=== PATIENT | female | born 1965 | race Caucasian/White ===

== ENCOUNTER 2022-02-25 21:30 | Emergency (ER) | payer OTHER, SELFPAY ==
[2022-02-25] VITALS (13 sets, daily range): BP systolic 110–155; BP diastolic 53–83; PULSE 100–122; RESP 18–34; TEMP 37.3; O2SAT 93–100
--- NOTE | ~2022-02-25 | CT_ITS ---
EXAMINATION: CT ankle RT wo con DATE: 02/26/2022 01:21 INDICATION: Cellulitis. Assess for osteomyelitis. TECHNIQUE: 1. High resolution computed tomography (CT) of the right ankle was performed without intravenous cont rast. Additional sagittal and coronal reconstructions were performed. Automated exposure control and iterative reconstruction technique were employed. The dose-length product was 335.49 mGy-cm. 2. CT of the right foot was performed without intravenous contrast. Additional sagittal and coronal r econstructions were performed. Automated exposure control and iterative reconstruction technique were employed. The dose-length product was 335.49 mGy-cm for the combined procedures. COMPARISON: Right foot radiograph dated 02/26/2022 FINDINGS: Consider postoperative change of indication of the right fifth ray at the level of the tarsal metatar franky joint. Gas extends along the deep ulceration to contact the bone at the lateral base of the fourt h metatarsal. There is very early cortical erosion along the lateral margins of both the fifth metata rsal and the distal cuboid consistent with early osteomyelitis. There is a crescentic ossific fragmen t plantar to the cuboid with a donor site along the plantar aspect of the cuboid likely representing displacement of a pathologic avulsion fracture of the plantar calcaneocuboid liga ment. There is also cortical erosion along the lateral aspect of the talus along the anterior recess of the subtalar joint also suspicious for osteomyelitis with potential septic arthritis the subtalar joint which frequently communicates with the talonavicular and ankle joints and which along with a small am ount of gas in the medial side of the dorsal recess of the talonavicular joint raises concern for mor e extensive septic arthritis in the hindfoot. There is also some osteolysis with cortical erosion along the medial side of the anterior tibial plafond consistent with osteolysis and further suggesting septic arthritis of the ankle joint. Additional small amount of gas tracking along the soft tissue plane between the tibialis posterior tendon and the spring ligament complex also rafiq picious for extension of infection. Achilles and plantar calcaneal spurs. IMPRESSION: 1. Cortical erosions consistent with osteomyelitis at the lateral base of the fourth metatarsal and o n the lateral and plantar aspects of the cuboid where there appears to be a likely pathologic avulsio n fracture. 2. She small amount of gas in the dorsal recess of the talonavicular joint suggesting septic arthriti s which likely extends to involve the subtalar and ankle joints with additional erosions suspicious f or osteomyelitis at the lateral process of the talus and along the medial aspect of the anterior tibi al plafond. 3. Chronic amputation of the fifth toe at the level of the fifth tarsal metatarsal joint. Reviewed, dictated and finalized at location A. IMPRESSION: 1. Cortical erosions consistent with osteomyelitis at the lateral base of the f ourth metatarsal and on the lateral and plantar aspects of the cuboid where the re appears to be a likely pathologic avulsion fracture. 2. She small amount of gas in the dorsal recess of the talonavicular joint sugg esting septic arthritis which likely extends to involve the subtalar and ankle joints with additional erosions suspicious for osteomyelitis at the lateral pro cess of the talus and along the medial aspect of the anterior tibial plafond. 3. Chronic amputation of the fifth toe at the level of the fifth tarsal metatar franky joint.
--- NOTE | ~2022-02-25 | CT_ITS ---
EXAMINATION: CT ankle RT wo con DATE: 02/26/2022 01:21 INDICATION: Cellulitis. Assess for osteomyelitis. TECHNIQUE: 1. High resolution computed tomography (CT) of the right ankle was performed without intravenous cont rast. Additional sagittal and coronal reconstructions were performed. Automated exposure control and iterative reconstruction technique were employed. The dose-length product was 335.49 mGy-cm. 2. CT of the right foot was performed without intravenous contrast. Additional sagittal and coronal r econstructions were performed. Automated exposure control and iterative reconstruction technique were employed. The dose-length product was 335.49 mGy-cm for the combined procedures. COMPARISON: Right foot radiograph dated 02/26/2022 FINDINGS: Consider postoperative change of indication of the right fifth ray at the level of the tarsal metatar franky joint. Gas extends along the deep ulceration to contact the bone at the lateral base of the fourt h metatarsal. There is very early cortical erosion along the lateral margins of both the fifth metata rsal and the distal cuboid consistent with early osteomyelitis. There is a crescentic ossific fragmen t plantar to the cuboid with a donor site along the plantar aspect of the cuboid likely representing displacement of a pathologic avulsion fracture of the plantar calcaneocuboid ligament. There is also cortical erosion along the lateral aspect of the talus along the anterior recess of the subtalar joint also suspicious for osteomyelitis with potential septic arthritis the subtalar joint which frequently communicates with the talonavicular and ankle joints and which along with a small am ount of gas in the medial side of the dorsal recess of the talonavicular joint raises concern for mor e extensive septic arthritis in the hindfoot. There is also some osteolysis with cortical erosion kulwinder ng the medial side of the anterior tibial plafond consistent with osteolysis and further suggesting s eptic arthritis of the ankle joint. Additional small amount of gas tracking along the soft tissue maribel ne between the tibialis posterior tendon and the spring ligament complex also suspicious for extensio n of infection. Achilles and plantar calcaneal spurs. IMPRESSION: 1. Cortical erosions consistent with osteomyelitis at the lateral base of the fourth metatarsal and o n the lateral and plantar aspects of the cuboid where there appears to be a likely pathologic avulsio n fracture. 2. She small amount of gas in the dorsal recess of the talonavicular joint suggesting septic arthriti s which likely extends to involve the subtalar and ankle joints with additional erosions suspicious f or osteomyelitis at the lateral process of the talus and along the medial aspect of the anterior tibi al plafond. 3. Chronic indentation of the fifth toe at the level of the fifth tarsal metatarsal joint. Reviewed, dictated and finalized at location A. IMPRESSION: 1. Cortical erosions consistent with osteomyelitis at the lateral base of the f ourth metatarsal and on the lateral and plantar aspects of the cuboid where the re appears to be a likely pathologic avulsion fracture. 2. She small amount of gas in the dorsal recess of the talonavicular joint sugg esting septic arthritis which likely extends to involve the subtalar and ankle joints with additional erosions suspicious for osteomyelitis at the lateral pro cess of the talus and along the medial aspect of the anterior tibial plafond. 3. Chronic indentation of the fifth toe at the level of the fifth tarsal metata rsal joint.
--- NOTE | ~2022-02-25 | XR_ITS ---
EXAMINATION: XR chest 2V DATE: 02/25/2022 23:54 INDICATION: Weakness. Leukocytosis. TECHNIQUE: frontal and lateral views of the chest were obtained. COMPARISON: Chest radiograph dated 04/10/2005 FINDINGS: Small lung volumes. No focal airspace opacities, pulmonary edema, pleural effusion or pneumothorax. T he cardiomediastinal silhouette is normal. Thoracic kyphosis with moderate spondylosis and likely chr onic mild compression fracture in the region of the thoracolumbar junction. IMPRESSION: 1. Small lung volumes. No acute cardiopulmonary disease. Reviewed, dictated and finalized at location A.
--- NOTE | ~2022-02-25 | XR_ITS ---
EXAMINATION: XR foot RT min 3V DATE: 02/26/2022 00:26 INDICATION: Cellulitis and osteomyelitis. TECHNIQUE: Dorsoplantar, oblique and lateral views of the right foot were obtained. COMPARISON: None. FINDINGS: Large relatively deep skin ulceration at the dorsolateral aspect of the right foot with prominent diana rounding soft tissue swelling. The fifth ray has been amputated with osteotomy along the lateral rudi in of the cuboid. Alignment of the remaining bones is normal. Diffuse osteopenia which decreases sens itivity for nondisplaced fracture and osteolysis. No fractures identified. On the dorsal plantar view of the lateral cortex at the base of the fourth metatarsal and cuboid appears indistinct which raise s concern for early osteomyelitis. Polyarticular osteoarthritis, moderate severity at the tarsal meta tarsal joints and mild at the majority the remaining joints in the mid and forefoot. Achilles and maribel ntar calcaneal spurs.. IMPRESSION: 1. Large relative deep ulceration at the dorsolateral midfoot with indistinct cortices at the underly ing lateral aspect of the base of the fourth metatarsal and adjacent cuboid raising concern for osteo myelitis. Consider MRI for further evaluation. 2. Prior amputation of the fifth ray and associated osteotomy at the lateral cuboid. Reviewed, dictated and finalized at location A. IMPRESSION: 1. Large relative deep ulceration at the dorsolateral midfoot with indistinct c ortices at the underlying lateral aspect of the base of the fourth metatarsal a nd adjacent cuboid raising concern for osteomyelitis. Consider MRI for further evaluation. 2. Prior amputation of the fifth ray and associated osteotomy at the lateral cu boid.
--- NOTE | 2022-02-25 21:50 | ED.WEAKNESS ---
HPI - Weakness General Chief complaint: Weakness <Jerry Barba MD - Last Filed: 03/14/22 15:13> Stated complaint: 2 surgeries on R foot/no strength in whole body <Jerry Barba MD - Last Filed: 03/14/22 15:13> Time Seen by Provider: 02/25/22 21:50 <Jerry Barba MD - Last Filed: 03/14/22 15:13> Source: patient and family <Jerry Barba MD - Last Filed: 03/14/22 15:13> Mode of arrival: wheelchair <Jerry Barba MD - Last Filed: 03/14/22 15:13> History of Present Illness HPI Narrative: patient presents to the emergency room with generalized weakness. states he is having difficulty getting her up to the bathroom and had significant difficulty getting into the car to bring her to the emergency room. He says she just feels weak all over has no strength. She states she has had some chills but no fevers. No other symptom nausea vomiting diarrhea. She had surgery on her right foot January 03 for resection of her 5th metatarsal with possible osteo. states that it has been getting more red on the right foot on the lateral aspect around the surgical wound site. She also had increased swelling in her right leg. She is having difficulty ambulating on her right leg due to pain and swelling. <Jerry Barba MD - Last Filed: 03/14/22 15:13> MD Complaint: generalized weakness <Jerry Barba MD - Last Filed: 03/14/22 15:13> Onset (ago): day(s) (today) <Jerry Barba MD - Last Filed: 03/14/22 15:13> Duration: constant and progressively worsening <Jerry Barba MD - Last Filed: 03/14/22 15:13> Location: generalized <Jerry Barba MD - Last Filed: 03/14/22 15:13> Severity: severe <Jerry Barba MD - Last Filed: 03/14/22 15:13> Quality: dull <MD Flora Andrea Last Filed: 03/14/22 15:13> Relieving factors: none <Jerry Barba MD - Last Filed: 03/14/22 15:13> Exacerbating factors: movement and exertion <Jerry Barba MD - Last Filed: 03/14/22 15:13> Context: recent surgery ( right foot January 03) <Jerry Barba MD - Last Filed: 03/14/22 15:13> Associated symptoms: denies other symptoms <Jerry Barba MD - Last Filed: 03/14/22 15:13> Related Data Home medications: Home Medications Medication Instructions Recorded Confirmed Novolog U-100 Insulin aspart See Rx Instructions .Route .COMPLEX 02/26/22 02/26/22 insulin glargine 100 unit/mL 40 unit subcut DAILY 02/26/22 02/26/22 subcutaneous cartridge <Jerry Barba MD - Last Filed: 03/14/22 15:13> Allergies/Adverse reactions: Allergies Allergy/AdvReac Type Severity Reaction Status Date / Time No Known Allergies Allergy Unknown Verified 02/25/22 22:10 <Jerry Barba MD - Last Filed: 03/14/22 15:13> Review of Systems Review of Systems: All systems reviewed & are unremarkable except as noted in HPI and below <Jerry Barba MD - Last Filed: 03/14/22 15:13> Constitutional: Constitutional: Reports chills, Denies fever(s) and Reports weakness <Jerry Barba MD - Last Filed: 03/14/22 15:13> [facility] Past Medical History Medical History: Medical History (Updated 02/27/22 @ 00:01 by David Bates) Intention tremor Osteomyelitis Type 2 diabetes mellitus <Jerry Barba MD - Last Filed: 03/14/22 15:13> Surgical History Surgical History: Surgical History (Updated 02/25/22 @ 22:10 by Jerry Barba MD) Amputation toe H/O foot surgery History of knee replacement resection of 5th metatarsal <Jerry Barba MD - Last Filed: 03/14/22 15:13> Social History Social History: Social History (Updated 02/25/22 @ 22:14 by Jerry Barba MD) Smoking status: Never smoker Alcohol intake: never Substance use: never <Jerry Barba MD - Last Filed: 03/14/22 15:13> Comments Spouse related to me that after further questioning she has a history of renal insufficiency and osteomyelitis. <Jerry
[2022-02-25 22:31] LABS: Basophils Absolute Auto 0.03 K/mm3 (0.00-0.10); Basophils Percent Auto 0.2 % (0.0-1.0); Hematocrit 31.1 % (35.0-49.0); Hemoglobin 10.3 g/dL (12.0-15.0); Immature Granulocyte Absolute 0.13 K/mm3 (0.00-0.00); Immature Granulocyte Percent A 0.8 % (0.0-0.0); Lymphocytes Absolute Auto 0.53 K/mm3 (1.10-4.50); Lymphocytes Percent Auto 3.1 % (18.0-42.0); Mean Corpuscular HGB Conc 33.1 g/dL (32.0-36.0); Mean Corpuscular Hemoglobin 28.9 pg (27.0-31.0); Mean Corpuscular Volume 87.4 fL (78.0-102.0); Mean Platelet Volume 10.8 fl (9.2-11.8); Monocytes Absolute Auto 1.32 K/mm3 (0.10-0.90); Monocytes Percent Auto 7.7 % (2.0-11.0); Neutrophils Absolute Auto 15.1 K/mm3 (1.7-7.2); Neutrophils Percent Auto 88.2 % (50.0-70.0); Platelet Count Result 360 K/mm3 (150-420); Red Blood Count 3.56 M/mm3 (4.20-5.40); Red Cell Distribution Width 13.3 % (11.6-14.4); White Blood Count 17.1 K/mm3 (4.8-10.8)
[2022-02-25 22:49] LABS: Lactic Acid Reflex 2.2 mmol/L (0.4-2.0)
[2022-02-25 23:07] LABS: Influenza A QL RT-PCR Negative (Negative); Influenza B QL RT-PCR Negative (Negative); SARS-CoV-2 RNA PCR Negative (Negative)
[2022-02-25 23:08] LABS: Anion Gap 16 mmol/L (8-16); Blood Urea Nitrogen 46 mg/dL (7-18); Carbon Dioxide 19 mmol/L (21-32); Chloride 95 mmol/L (98-108); Sodium 130 mmol/L (136-145)
[2022-02-25 23:09] LABS: Aspartate Amino Transferase 43 U/L (15-37); Bilirubin,Total 1.1 mg/dL (0.00-1.00); Calcium 8.9 mg/dL (8.5-10.1); Estimated Glomerular Filt Rate 15; Glucose 412 mg/dL (70-99); Magnesium 1.9 mg/dL (1.8-2.4); Osmolality Calculated 298 mOsm/kg (285-295)
[2022-02-25 23:10] LABS: Alanine Aminotransferase 75 U/L (14-59); Albumin Level 2.3 g/dL (3.4-5.0); Alkaline Phosphatase 259 U/L (46-116)
[2022-02-25 23:27] LABS: CRP > 10.6 mg/dL (0.0-0.9); Ferritin > 1000 ng/mL (8-252); Total Protein 8.2 g/dL (6.4-8.2)
[2022-02-25 23:34] LABS: D Dimer 18.95 mg/L (0.19-0.50)
--- NOTE | 2022-02-25 23:51 | PC.NURSE ---
[facility]
[2022-02-25] MEDS: INSULIN HUMAN REGULAR (*BKC) 100 UNITS/ML 10 UNITS SUB-Q (23:57)
[2022-02-25] MEDS: LACTATED RINGERS 1,000 ML 999 ML IV CONT (23:57)
[2022-02-26] VITALS (34 sets, daily range): BP systolic 115–147; BP diastolic 61–72; PULSE 75–103; RESP 13–35; TEMP 36.6; O2SAT 89–99
--- NOTE | 2022-02-26 00:05 | PC.NURSE ---
dr gutierrez returned call
[2022-02-26] MEDS: HYDROcodone/acetaminophen (*CRX) 5-325 MG TABLET 1 TAB PO (00:23)
[2022-02-26 00:25] LABS: Add Urine Microscopic? YES; Bilirubin Urine 1+ (Negative); Blood Urine 3+ (Negative); Color Urine Yellow (Yellow); Glucose Urine UA 3+ (Negative); Ketones Urine Trace (Negative); Leukocyte Esterase Ur Trace LEU/UL (Negative); Nitrate Urine Negative (Negative); Protein Urine 2+ (Negative); Specific Grav Ur 1.025 (1.010-1.020); pH Urine 5.5 (5.0-8.0)
[2022-02-26 00:32] LABS: Appearance Urine Cloudy (Clear)
[2022-02-26 00:33] LABS: Amorphous Sediment Urine Heavy; Bacteria Urine 1+ /hpf; Mucus Urine Few /lpf; RBC Urine 0-2 /hpf (0-2); Squamous Epithelial Cell Urine Many /hpf (Few); WBC Urine None seen /hpf (0-3)
--- NOTE | 2022-02-26 01:51 | PC.NURSE ---
Tim declined patient, [facility] at capacity
[2022-02-26 02:06] LABS: Reflex Lactic Acid Yes or No Add Lactic
[2022-02-26] MEDS: LACTATED RINGERS 1,000 ML 999 ML IV CONT (03:02)
[2022-02-26 03:07] LABS: Lactic Acid 1.2 mmol/L (0.4-2.0)
--- NOTE | 2022-02-26 06:04 | PC.NURSE ---
gagandeep santana called with update per pts request [phone]
--- NOTE | 2022-02-26 07:04 | PC.NURSE ---
report given to darrin GIBBS
[2022-02-26 07:06] LABS: Glucose Point of Care 223 mg/dl (65-105)
--- NOTE | 2022-02-26 08:12 | PC.NURSE ---
patient states pain 4/10 at this time and denies nausea, refuses pain medication at this time. will hold morphine and zofran for later.
[2022-02-26 08:26] LABS: Basophils Absolute Auto 0.04 K/mm3 (0.00-0.10); Basophils Percent Auto 0.2 % (0.0-1.0); Eosinophils Absolute Auto 0.01 K/mm3 (0.02-0.50); Eosinophils Percent Auto 0.1 % (1.0-6.0); Hemoglobin 8.5 g/dL (12.0-15.0); Immature Granulocyte Absolute 0.15 K/mm3 (0.00-0.00); Immature Granulocyte Percent A 0.8 % (0.0-0.0); Immature Platelet Fraction Pct 2.2 % (1.0-7.0); Lymphocytes Absolute Auto 1.96 K/mm3 (1.10-4.50); Mean Corpuscular HGB Conc 30.4 g/dL (32.0-36.0); Mean Corpuscular Hemoglobin 28.7 pg (27.0-31.0); Mean Corpuscular Volume 94.6 fL (78.0-102.0); Mean Platelet Volume 11.2 fl (9.2-11.8); Monocytes Absolute Auto 2.19 K/mm3 (0.10-0.90); Monocytes Percent Auto 11.1 % (2.0-11.0); Neutrophils Absolute Auto 15.3 K/mm3 (1.7-7.2); Neutrophils Percent Auto 77.8 % (50.0-70.0); Platelet Count Result 294 K/mm3 (150-420); Red Blood Count 2.96 M/mm3 (4.20-5.40); Red Cell Distribution Width 13.4 % (11.6-14.4); White Blood Count 19.7 K/mm3 (4.8-10.8)
[2022-02-26 08:31] LABS: Anion Gap 11 mmol/L (8-16); Blood Urea Nitrogen 43 mg/dL (7-18); Calcium 8.1 mg/dL (8.5-10.1); Carbon Dioxide 20 mmol/L (21-32); Chloride 101 mmol/L (98-108); Estimated CRCL calculation 17 ml/min; Estimated Glomerular Filt Rate 16; Glucose 195 mg/dL (70-99); Osmolality Calculated 289 mOsm/kg (285-295); Potassium 3.9 mmol/L (3.5-5.1); Sodium 132 mmol/L (136-145)
--- NOTE | 2022-02-26 08:59 | PC.NURSE ---
rn spoke with house designer at [facility], they will not do surgery on feet at this time. night hospitalist suggest trying an ER to ER transfer for neurotizing fascitis.
--- NOTE | 2022-02-26 09:01 | PC.NURSE ---
Per erp hold lovenox in case patient is surgical candidate.
--- NOTE | 2022-02-26 09:02 | PC.NURSE ---
rn called [facility] connect for possible er-er transfer to [facility] or [facility].
[2022-02-26] MEDS: ONDANSETRON INJ 4 MG/2 ML VIAL IV PUSH (09:55)
[2022-02-26] MEDS: MORPHINE SULFATE (*CRX) 2 MG/ML INJ IV PUSH (09:56)
--- NOTE | 2022-02-26 10:05 | PC.NURSE ---
vascular surgeon dr orellana from [facility] called to speak with dr evangelista. he accepts patient.
--- NOTE | 2022-02-26 10:18 | PC.NURSE ---
hospitalist from [facility] called to speak with dr evangelista.
--- NOTE | 2022-02-26 10:25 | PC.NURSE ---
Dr Childs hospitalist from [facility] accepted patient.
--- NOTE | 2022-02-26 10:27 | ECG_ITS ---
Measurements Intervals [place] Rate: 87 P: 38 MN: 163 QRS: -12 QRSD: 136 T: 97 QT: 383 QTc: 461 Interpretive Statements SINUS RHYTHM LEFT BUNDLE BRANCH BLOCK BASELINE ARTIFACT- I, III, AVL ABNORMAL ECG Electronically Signed On 02-26-2022 12:57:36 CDT by Senthil Fan D.O.
--- NOTE | 2022-02-26 10:30 | PC.NURSE ---
RN updated patient about going to [facility]. rn waiting on room number. patient asked rn to call Hu at [phone] to update him on transfer. will call back with update when room is assigned.
--- NOTE | 2022-02-26 11:06 | PC.NURSE ---
Lizzy GIBBS called for report.
--- NOTE | 2022-02-26 11:25 | PC.NURSE ---
tre called for transfer.
--- NOTE | 2022-03-02 07:36 | PC.NURSE ---
Culture report fine results received. RN called to [facility] to get fax number to fax over results. person from the floor that answered the phone didn't know the fax number and will have patients RN call me back with number.
--- NOTE | 2022-03-02 08:00 | PC.NURSE ---
RN faxed blood culture reports over to [facility]
== END 2022-02-26 12:15 | disposition short-term general hospital (02) ==
PROVIDERS: Emergency Provider Emergency Medicine
DX: M86.171 Other acute osteomyelitis, right ankle and foot (principal); A41.9 Sepsis, unspecified organism; E11.29 Type 2 diabetes mellitus with other diabetic kidney complication; L03.116 Cellulitis of left lower limb; Z20.822 Contact with and (suspected) exposure to COVID-19
CPT/HCPCS: 36415; 71046; 73630; 73700; 80048; 80053; 81001; 82728; 82948; 83605; 83735; 85025; 85055; 85380; 86140; 87040; 87147; 87186; 87502; 93005; 96361; 96365; 96375; 99285; A9270; C9803; J0743; J1815; J2270; J2405; J3370; J7120; U0003; U0005

== ENCOUNTER 2024-12-18 17:15 | Observation (INO) | payer OTHER, SELFPAY ==
[2024-12-18] VITALS (28 sets, daily range): BP systolic 149–207; BP diastolic 72–103; PULSE 79–87; RESP 16–20; TEMP 36.3–36.7; O2SAT 94–100; BMI 21.4
--- NOTE | ~2024-12-18 | XR_ITS ---
CHEST RADIOGRAPH CLINICAL HISTORY: weakness, n/v . COMPARISON: 02/25/2022 TECHNIQUE: Single portable view of the chest. FINDINGS The cardiomediastinal silhouette is unremarkable. The lungs are clear. Redemonstration of a right humeral head fracture, with callus formation. IMPRESSION: No focal infiltrate or effusion. Reviewed, dictated and finalized at location A.
--- NOTE | ~2024-12-18 | CT_ITS ---
Clinical Indication: Abdominal pain CT Scan of the Chest, Abdomen, and Pelvis without Contrast: Technique: Contiguous sections were acquired throughout the chest, abdomen, and pelvis without IV con trast administration. Dose reduction technique was used on this scan by utilizing automated exposure control and iterative reconstruction technique. The dose-length product (DLP) was 456.94 mGy-cm. Findings: There is no evidence of any significant mediastinal, hilar or axillary lymphadenopathy. Coronary anil ry calcifications are present. There is no evidence of pleural or pericardial effusion. The lungs are clear. No pulmonary nodules or infiltrates are noted. The liver, spleen, pancreas, gallbladder, adrenals and kidneys are within normal limits. No evidence of aortic aneurysm. No lymphadenopathy. No bowel obstruction or bowel wall thickening. There is no evidence to suggest acute appendicitis. Sm all hiatal hernia noted. Urinary bladder is unremarkable. No pelvic mass evident. No ascites. There is streak artifact from ri ght hip arthroplasty. T12 and L5 compression fractures are present, most likely chronic. Impression: No acute abnormality seen. Probable chronic compression fractures of T12 and L5. Small hiatal hernia. Reviewed, dictated and finalized at location . Impression: No acute abnormality seen. Probable chronic compression fractures of T12 and L5. Small hiatal hernia.
[2024-12-18 17:52] LABS: Add Urine Microscopic? YES; Appearance Urine Clear (Clear); Bilirubin Urine Negative (Negative); Blood Urine 1+ (Negative); Color Urine Light Yellow (Yellow); Glucose Urine UA Negative (Negative); Ketones Urine Negative (Negative); Leukocyte Esterase Ur Negative LEU/UL (Negative); Nitrate Urine Negative (Negative); Protein Urine 2+ (Negative); Specific Grav Ur 1.015 (1.010-1.020); Urobilinogen Urine 0.2 mg/dL (0.2-1.0); pH Urine 5.5 (5.0-8.0)
--- NOTE | 2024-12-18 17:52 | ECG_ITS ---
Test Date: 2024-12-18 18:23:29 Measurements Intervals [place] Rate: 81 P: 69 [place]: 223 QRS: -13 QRSD: 154 T: 125 QT: 433 QTc: 504 Interpretive Statements SINUS RHYTHM WITH FIRST DEGREE AV BLOCK LEFT BUNDLE BRANCH BLOCK [120+ ms QRS DURATION, 80+ ms Q/S IN V1/V2, 85+ ms R IN I/aVL/V5/V6] No previous ECG available for comparison Electronically Signed On 12-20-2024 11:46:03 CDT by Cortez Navarro M.D.
[2024-12-18 17:57] LABS: Amorphous Sediment Urine Moderate; Bacteria Urine 4+ /hpf; Squamous Epithelial Cell Urine Rare /hpf (Few); WBC Urine 0-3 /hpf (0-3)
--- OUTSIDE RECORDS SUMMARY | 2024-12-18 17:57 | XMS_ITS | Encounter Summary ---
Author Organization [facility] Address [address] [place] [id number] Care Team Providers Care Materials Recycler Name Role Phone Destinee Rodriguez NP Primary Care Provider [phone] Encounter Details Date Type Department Care Team (Late st Contact Info) Description 09/17/2023 Hospital Follow-up Call [facility] [address] [place] [address] Xiomara Schmitt RN Social History Tobacco Use Types Packs/Day Years Used Date Smoking Tobacco: Never Smokeless Tobacco: Never [facility] Utilities Answer Date Recorded In the past 12 months has e electric, gas, oil, or water company threatened to shut off services in your home? No 09/08/2023 Humiliation, Afraid, Rape, and Kick questionnair e Answer Date Recorded Within the last year, have y ou been afraid of your partner or ex-partner? No 09/08/2023 Within the last year, have y ou been humiliated or emotionally abused in other ways by your partner or ex-partner? No Within the last year, have y ou been kicked, hit, slapped, or otherwise physically hurt by your partner or ex-partner? No 09/08/2023 Within the last year, have y ou been raped or forced to have any kind of sexual activity by your partner or ex-partner? No 09/08/2023 Overall Financial Resource Strain (CARDIA) Answe r Date Recorded How hard is it for you to pa y for the very basics like food, housing, medical care, and heating? Not hard at all 09/08/2023 Hunger Vital Sign Answer Date Recorded Within the past 12 months, y ou worried that your food would run out before you got the money to buy more. Never true 09/08/19 24 Within the past 12 months, t he food you bought just didn't last and you didn't have money to get more. Never true 09/08/2023 PRAPARE - Transportation Answer Date Re corded In the past 12 months, has l ack of transportation kept you from medical appointments or from getting medications? No 08/21 In the past 12 months, has l ack of transportation kept you from meetings, work, or from getting things needed for daily living? No 09/08/2023 Housing Stability Vital Sign Answer Jose e Recorded In the last 12 months, was t here a time when you were not able to pay the mortgage or rent on time? No 09/08/2023 In the last 12 months, how many places have you lived? 2 09/08/2023 In the last 12 months, was t here a time when you did not have a steady place to sleep or slept in a long term (including now)? No 09/08/2023 Comments Unknown Sex and Gender Information Value Date Recorded Sex Assigned at Female 10/22/2024 9:59 PM SHEEP BONER Legal Sex Female 9:54 PM SHEEP BONER Gender Identity Not on file Sexual Orientation Not on file documented as of this encounter Functional Status * Are you deaf or do you have serious difficulty hearing Answer Date of Assessment Author Status No 09/08/2023 3:58 AM Ever Chua RN Active * Are you blind or do you have serious difficulty seeing, even when wearing glasses? Answer Date of Assessment Author Status Yes 09/08/2023 3:58 AM Ever Chua RN Active * Do you have serious difficulty walking or climbing stairs? Answer Date of Assessment Author Status Yes 09/08/2023 3:58 AM Evre Chua RN Active * Do you have difficulty dressing or bathing? Answer Date of Assessment Author Status Yes 09/08/2023 3:58 AM Ever Chua RN Active * Because of a physical, mental, or emotional condition, do you have difficulty doing errands alone such as visiting a doctor's office or shopping? Answer Date of Assessment Author Status No 09/08/2023 3:58 AM SHEEP BONER Ever Yancey RN Active documented as of this encounter Mental Status * Because of a physical, mental, or emotional condition, do you have serious difficulty concentrating, remembering, or making decisions? Answer Entry Date Author Status No 09/08/2023 3:58 AM SHEEP BONER Ever Yancey RN Active documented in this encounter Plan of Treatment Not on file documented as of this encounter Goals Goal Patient Goal Type Associated Problems Recent Progress Patient-Stated? Author Family - family caregiver with be involved in care transitions and discharge planning Lifestyle No Jovita Colón RN documented as of this encounter Visit Diagnoses Not on filedocumented in this encounter Additional Health Concerns Infection Onset Date Last Indicated Resolved Time COVID-19 Rule Out 10/22/2024 10/22/2024 10/22/2024 10:40 PM SHEEP BONER Respiratory Rule-Out 10/22/2024 10/22/2024 025 10:41 PM SHEEP BONER documented as of this encounter Care Teams Materials Recycler Relationship Specialty Start Date End Date Destinee Rodriguez, REKHA PCP - General NURSE PRACTITIONER 09/08/23 documented as of this encounter
--- OUTSIDE RECORDS SUMMARY | 2024-12-18 17:57 | XMS_ITS | Encounter Summary ---
Author Organization [facility] Address [address] [place] [id number] Care Team Providers Care Supervisor Waterworks Name Role Phone None, Provider MD Primary Care Provider Jyothi treviño Non-Staff, Provider Primary Care Provider Luis Manuel Osborne MD Primary Care Provider [phone] Destinee Rodriguez NP Primary Care Provider [phone] Reason for Referral * Surgical (Routine) - Closed Specialty Diagnoses / Procedures Referred By Ashlie t Referred To Contact Diagnoses Osteomyelitis Procedures Case request operating room: BONE BIOPSY-FOOT Jaxon August MD [facility]. [facility] [address] [place] [address] Phone: tel: fax: [facility] [address] Phone: tel: Referral ID Status Reason Start Date Expiration Date Visits Re quested Visits Authorized [id number] Closed 03/09/2022 04/06/2023 1 1 Encounter Details Date Type Department Care Team (Late st Contact Info) Description 03/06/2022 Prep for Procedure [facility] [address] [place], [place] [id number] Jaxon August MD [facility]. 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 No / Unsure 02/26/2022 2:32 PM CDT documented as of this encounter Functional Status * RETIRED Are you deaf or do you have serious difficulty hearing Answer Date of Assessment Author Status No 02/26/2022 2:00 PM CDT Activ e * RETIRED Are you blind or do you have serious difficulty seeing, even when wearing glasses? Answer Date of Assessment Author Status Yes 02/26/2022 2:00 PM CDT Activ e * Do you have serious difficulty walking or climbing stairs? Answer Date of Assessment Author Status No 02/26/2022 2:00 PM CDT Lizzy Erazo RN Active * Do you have difficulty dressing or bathing? Answer Date of Assessment Author Status No 02/26/2022 2:00 PM CDT Lizzy Erazo RN Active * Because of a physical, mental, or emotional condition, do you have difficulty doing errands alone such as visiting a doctor's office or shopping? Answer Date of Assessment Author Status No 02/26/2022 2:00 PM CDT Lizzy Erazo RN Active * Calculated C-SSRS Risk Score (Lifetime/Recent) Answer Date of Assessment Author Status No Risk Indicated 03/09/2022 10:52 AM CDT Gómez Martin RN Active * [place] Suicide Severity Rating Scale (Screener/Recent Self-Report) Question Answer Date of Assessment Author Status 1. Wish to be (Past 1 Month) No 03/09/2022 10:52 AM CDT Pearl Martin RN Active 2. Non-Specific Active Suicidal Thoughts (Past 1 Month) No 03/09/2022 10:52 AM CDT Pearl Martin RN Active 6. Suicidal Behavior (Lifetime) No 03/09/2022 10:52 AM CDT Pearl Martin RN Active documented as of this encounter Mental Status * Because of a physical, mental, or emotional condition, do you have serious difficulty concentrating, remembering, or making decisions? Answer Entry Date Author Status No 02/26/2022 2:00 PM CDT Lizzy Erazo RN Active documented in this encounter Plan of Treatment Scheduled Orders Name Type Priority Associated Diagnoses Orde r Schedule Case request operating room: BONE BIOPSY-FOOT Case Request Routine Once for 1 Occur rences starting 03/06/2022 until 03/06/2022 documented as of this encounter Visit Diagnoses Not on filedocumented in this encounter Additional Health Concerns Infection Onset Date Last Indicated Resolved Time COVID-19 Rule Out 03/08/2022 03/08/2022 03/08/2022 7:01 PM CDT COVID-19 Rule Out 03/17/2022 03/17/2022 03/17/2022 11:16 AM CDT COVID-19 Rule Out 10/22/2024 10/22/2024 10/22/2024 10:40 PM DUST SAMPLER Respiratory Rule-Out 10/22/2024 10/22/2024 025 10:41 PM DUST SAMPLER documented as of this encounter Care Teams Supervisor Waterworks Relationship Specialty Start Date End Date None, Provider, PCP - General 08/20/21 06/01/22 Non-Staff, Provider PCP - General UNKNOWN PHYSICIAN SPECIALTY 06/02/22 05/07/23 Luis Manuel Mccall MD [facility] [place] [address] PCP - General FAMILY PRACTICE 05/08/23 09/07/23 Destinee Rodriguez NP [facility] [place] [address] PCP - General NURSE PRACTITIONER 09/08/23 documented as of this encounter
--- OUTSIDE RECORDS SUMMARY | 2024-12-18 17:57 | XMS_ITS | Clinical Summary ---
Author Organization [facility] Address [address] [place] [id number] Care Team Providers Care Flight Attendant/Inflight Manager Name Role Phone Destinee Rodriguez NP Primary Care Provider [phone] Allergies No known active allergies Medications amLODIPine (NORVASC) 10 MG tablet Take 1 tablet (10 mg total) by mouth daily. Active aspirin 81 MG chewable tablet Chew 1 tablet (81 mg total) by mouth daily. Active atorvastatin (LIPITOR) 80 MG tablet Take 1 tablet (80 mg total) by mouth nightly at bedtime. Active ondansetron (ZOFRAN) 4 MG tablet Take 1 tablet (4 mg total) by mouth every 8 (eight) hours as needed for Nausea. Active pantoprazole EC (PROTONIX) 40 MG tablet Take 1 tablet (40 mg total) by mouth 2 (two) times a day. Active primidone (MYSOLINE) 50 MG tablet Take 1 tablet (50 mg total) by mouth 2 (two) times daily. Active sodium bicarbonate 650 MG tablet Take 1 tablet (650 mg total) by mouth 3 (three) times daily. Morning/noon/nig ht 2 tabs morning & night Active vitamin D3 (CHOLECALCIFEROL ) 25 mcg tablet Take 1 tablet (25 mcg total) by mouth daily. Active polyethylene glycol (GLYCOLAX) packet Take 240 mLs (17 g total) by mouth daily. Please take once daily on Tuesdays, and Saturdays. Dissolve powder in 240 mL water. 14 each 3 Active gabapentin (NEURONTIN) 100 MG capsule Take 1 capsule (100 mg total) by mouth 2 (two) times daily. Active Senna (SENNOSIDES) 8.6 MG tablet Take 1 tablet (8.6 mg total) by mouth as needed for Constipation. Active isosorbide dinitrate (ISORDIL) 10 MG tablet Take 1 tablet (10 mg total) by mouth 2 (two) times daily. Active OXYGEN CONCENTRATOR SUPPLY, DME,Indications: Congestive heart failure with left ventricular diastolic dysfunction ([facility] HHS/HCC),Hypoxic respiratory failure ([facility] HHS/HCC) 1 Device by Nasal route continuous. Nasal Cannula. 2L continuous oxygen. Portable tank and stationary concentrator 1 Device 4 Active OXYGEN CONCENTRATOR SUPPLY, DME,Indications: Congestive heart failure with left ventricular diastolic dysfunction (CMS/HCC HHS/HCC),Hypoxic respiratory failure (CMS/[facility] HHS/HCC) 1 Device by Nasal route continuous. Nasal Cannula. 2L continuous. Portable tank. 1 Device Active sertraline (ZOLOFT) 50 MG tablet Take 1 tablet (50 mg total) by mouth daily. Active bumetanide (BUMEX) 1 MG tablet Take 1 tablet (1 mg total) by mouth daily. 1/2 tab Active folic acid (FOLVITE) 1 MG tablet Take 1 tablet (1 mg total) by mouth daily. Active patiromer (VELTASSA) 8.4 g packet Take 8.4 g by mouth every other day. Active famotidine (PEPCID) 40 MG tablet Take by mouth 2 (two) times daily. Active metoclopramide (REGLAN) 10 MG tabletIndication s:30 min before meal Take 1 tablet (10 mg total) by mouth 4 (four) times daily. Indications: 30 min before meal Active Cholecalciferol (VITAMIN D3) 1000 units Cap Take 1 tablet by mouth daily. 4 Active hydrOXYzine (ATARAX) 10 MG tablet Take 1 tablet (10 mg total) by mouth 2 (two) times daily as needed for Anxiety. 4 Active Active Problems Problem Noted Date Diagnosed Date Pneumonia 10/23/2024 Acute renal failure (ARF) 08/14/2024 Congestive heart failure wit h left ventricular diastolic dysfunction ([facility] HHS/HCC) 09/13/2023 Hypoxic respiratory failure ([facility] HHS/HCC) Fracture of femoral neck, right ([facility] ) 05/04/2023 Osteomyelitis ([facility]) 02/26/2022 Encounters Date Type Department Care Team Description 10/27/2024 Hospital Follow-up Call [facility] Care Management [address] [place] [address] Emily Haywood RN Hospital Follow Up (10/22/2024 - 10/24/2024 (2 days)/[facility]///) 10/22/2024 9:51 PM DOT COMPLIANCE SPECIALIST - 10/24/2024 5:06 PM DOT COMPLIANCE SPECIALIST Hospital Encounter [facility] [address] [place] [address] rSidevi Eugene DO Sahi, Robinder S, MD McGowen, Payton K, MD Suicidal Ideation Discharge Disposition: Home or Self Care (Routine Discharge) 10/22/2024 Travel from Last 3 Months Immunizations Immunization Administration Dates Next Due Fluzone 6 Months+ Quad (0.5 mL Prefilled Syringe) 05/24/2023(Deferred: Patient/family declined) Family History Medical History Relation Comments Cancer Father Heart Disease Father Relation Status Comments Father Mother Sister Alive Social History Tobacco Use Types Packs/Day Years Used Date Smoking Tobacco: Never Smokeless Tobacco: Never Alcohol Use Standard Drinks/Week Comments Not Currently 0 (1 standard drink = 0.6 oz pur e alcohol) [facility] Utilities Answer Date Recorded In the past 12 months has [facility] [employer], gas, oil, or water [email or web address] threatened to shut off services in your home? Patient declined 10/23/2024 Humiliation, Afraid, Rape, and Kick questionnair e Answer Date Recorded Within the last year, have y ou been afraid of your partner or ex-partner? Patient declined 10/23/2024 Within the last year, have y ou been humiliated or emotionally abused in other ways by your partner or ex-partner? Patient declined 10/23/2024 Within the last year, have y ou been kicked, hit, slapped, or otherwise physically hurt by your partner or ex-partner? Patient declined 10/23/2024 Within the last year, have y ou been raped or forced to have any kind of sexual activity by your partner or ex-partner? Patient declined 10/23/2024 Overall Financial Resource Strain (CARDIA) Answe r Date Recorded How hard is it for you to pa y for the very basics like food, housing, medical care, and heating? Patient declined 10/23/2024 Hunger Vital Sign Answer Date Recorded Within the past 12 months, y ou worried that your food would run out before you got the money to buy more. Patient declined Within the past 12 months, t he food you bought just didn't last and you didn't have money to get more. Patient declined 01/2025 PRAPARE - Transportation Answer Date Re corded In the past 12 months, has l ack of transportation kept you from medical appointments or from getting medications? Patient declined 10/23/2024 In the past 12 months, has l ack of transportation kept you from meetings, work, or from getting things needed for daily living? Patient declined 10/23/2024 Housing Stability Vital Sign Answer Jose e [...] place to sleep or slept in a mcc (including now)? No 09/08/2023 Housing Stability Vital Sign Answer Jose e Recorded In the last 12 months, was t here a time when you were not able to pay the mortgage or rent on time? Patient declined 10/24/19 25 In the past 12 months, how m any times have you moved where you were living? 0 10/23/2024 At any time in the past 12 m [facility], were you homeless or living in a mcc (including now)? Patient declined 10/23/2024 Comments No Sex and Gender Information Value Date Recorded Sex Assigned at Female 10/22/2024 9:59 PM DOT COMPLIANCE SPECIALIST Legal Sex Female 9:54 PM DOT COMPLIANCE SPECIALIST Gender Identity Not on file Sexual Orientation Not on file Last Filed Vital Signs Vital Sign Reading Time Taken Comments Blood Pressure 107/54 10/24/2024 8:00 AM DOT COMPLIANCE SPECIALIST Pulse 77 10/24/2024 8:00 AM DOT COMPLIANCE SPECIALIST Temperature 36 C (96.8 F) 10/24/2024 8:00 AM DOT COMPLIANCE SPECIALIST Respiratory Rate 16 10/24/2024 8:00 AM DOT COMPLIANCE SPECIALIST Oxygen Saturation 100% 10/24/2024 8:00 AM DOT COMPLIANCE SPECIALIST Inhaled Oxygen Concentration - - Weight 49.4 kg (109 lb) 10/23/2024 12:00 PM DOT COMPLIANCE SPECIALIST Height 149.9 cm (4' 11 ) 10/23/2024 12:00 PM DOT COMPLIANCE SPECIALIST Body Mass Index 22.02 10/23/2024 12:00 PM DOT COMPLIANCE SPECIALIST Plan of Treatment Health Maintenance Due Date Last Done Comments Cervical Cancer Screening Pa p Smear (Age 30 to 64) Every 3 Years 1963 Colorectal Cancer Screening Colonoscopy (10 Years) 1963 Annual Physical 1966 Hepatitis C 1981 Cervical Cancer Screening Pa p with HPV Testing (Age 30 to 64) Every 5 Years 1993 Cervical Cancer Screening with HPV 1993 Mammogram Screening 2003 Zoster Vaccines (1 of 2) 2013 Pneumococcal Vaccine: 50+ Ye ars (2 of 2 - PCV) 02/07/2017 02/08/2016 RSV Immunization or 60+ Years (1 - Risk 60-74 years 1-dose series) 2023 COVID-19 Vaccine (2 - 2023-2 5 season) 2024 06/21/2023 DTaP, Tdap and Td Vaccines ( 2 - Td or Tdap) 10/21/2024 10/21/2014 Meningococcal B Vaccine Aged Out No l onger eligible based on patient's age to complete this topic Meningococcal Vaccine Aged Out No parveen charles eligible based on patient's age to complete this topic RSV Immunizations Under 20 Months Aged Out No longer eligible based on patient's age to complete this topic Goals Goal Patient Goal Type Associated Problems Recent Progress Patient-Stated? Author Family - family caregiver with be involved in care transitions and discharge planning Lifestyle No Jovita Colón, BERNIE Medical Devices Implanted Type Area Traffic Line Painter Device Identifier Shelf Expiration Date Model / Serial / Lot Cement Bone Biomet 40gm - [id number] Implanted:Qty: 2 on 05/05/2023 by Idris Almanza MD at [facility] Cement Implant Right: Hip [employer] 08/19/2025 [id number] / / Plug Cement Kvng Gabriel Medullary 20mm - [id number] Implanted:Qty: 1 on 05/05/2023 by Idris Almanza MD at [facility] Cement Implant Right: Hip [employer] 01/11/2027 [id number] / / Shell Kvng Bipolar 41mm Od - [id number] Implanted:Qty: 1 on 05/05/2023 by Idris Almanza MD at [facility] Hip Components Right: Hip [employer] 12/17/2025 [id number] / / Liner Kvng Bipolar Hip 22 Id 40/41mm - [id number] Implanted:Qty: 1 on 05/05/2023 by Idris Almanza MD at [facility] Hip Components Right: Hip [employer] 08/19/2025 [id number] / / [id number] Implanted:Qty: 1 on 05/05/2023 by Idris Almanza MD at [facility] Right: Hip [employer] 08/25/2027 [id number] / / Femoral Head Implanted:Qty: 1 on 05/05/2023 by Idris Almanza MD at [facility] Right: Hip [employer] 09/15/2031 [id number] / / Explanted Type Area Traffic Line Painter Device Identifier Shelf Expiration Date Model / Serial / Lot System Bone Cement 1 2 Mix - [id number] Explanted:Qty: 1 on 05/05/2023 by Idris Almanza MD at [facility] Cement Implant Right: Hip [employer] 12/21/2025 [id number] / / Femoral Cement Preparation Kit Explanted:Qty: 1 on 05/05/2023 by Idris Almanza MD at [facility] Right: Hip [employer] 11/25/2027 [id number] / / Procedures Procedure Name Priority Date/Time Associated Diagnosis Comments PHOSPHORUS, INORGANIC PHOSPHATE Routine 10/24/2024 5:35 AM DOT COMPLIANCE SPECIALIST MAGNESIUM Routine 10/24/2024 5:35 AM DOT COMPLIANCE SPECIALIST COMPREHENSIVE METABOLIC PANEL Routine 10/24/2024 5:35 AM DOT COMPLIANCE SPECIALIST CBC W/DIFF AUTOMATED Routine 10/24/2024 5:35 AM DOT COMPLIANCE SPECIALIST POCT GLUCOSE - GUNN DOCKED DEVICE Routine 10/23/2024 8:53 AM DOT COMPLIANCE SPECIALIST PHOSPHORUS, INORGANIC PHOSPHATE Routine 10/23/2024 8:19 AM DOT COMPLIANCE SPECIALIST MAGNESIUM Routine 10/23/2024 8:19 AM DOT COMPLIANCE SPECIALIST CBC W/DIFF AUTOMATED STAT 10/23/2024 8:[address]IANCE [address] ABD+PEL WO CON STAT 10/23/2024 12: 08 AM DOT COMPLIANCE SPECIALIST XR CHEST PORTABLE STAT 10/22/2024 11: 17 PM DOT COMPLIANCE SPECIALIST ECG 12-LEAD Routine 10/22/2024 10:25 PM DOT COMPLIANCE SPECIALIST LACTIC ACID W REFLEX (SEPSIS) STAT 10/22/2024 10:25 PM DOT COMPLIANCE SPECIALIST THYROID STIM HORMONE TSH STAT 10/22/2024 10:25 PM DOT COMPLIANCE SPECIALIST SALICYLATE STAT 10/22/2024 10:25 PM DOT COMPLIANCE SPECIALIST ACETAMINOPHEN STAT 10/22/2024 10:25 PM DOT COMPLIANCE SPECIALIST ETHANOL STAT 10/22/2024 10:25 PM DOT COMPLIANCE SPECIALIST MAGNESIUM STAT 10/22/2024 10:25 PM DOT COMPLIANCE SPECIALIST LIPASE STAT 10/22/2024 10:25 PM DOT COMPLIANCE SPECIALIST TROPONIN, QUANT STAT 10/22/2024 10:25 PM DOT COMPLIANCE SPECIALIST COMPREHENSIVE METABOLIC PANEL STAT 10/22/2024 10:25 PM DOT COMPLIANCE SPECIALIST CBC W/DIFF AUTOMATED STAT 10/22/2024 10:25 PM DOT COMPLIANCE SPECIALIST INFLUENZA A & B STAT 10/22/2024 10:00 PM DOT COMPLIANCE SPECIALIST CORONAVIRUS (COVID-19) ANTIGEN STAT 10/22/2024 10:00 PM DOT COMPLIANCE SPECIALIST DRUG SCREEN RAPID STAT 10/22/2024 10: 00 PM DOT COMPLIANCE SPECIALIST HC URINALYSIS AUTO W/MICRO STAT 10/22/2024 10:00 PM DOT COMPLIANCE SPECIALIST from Last 3 Months Results * (ABNORMAL) COMPREHENSIVE METABOLIC PANEL (10/24/2024 5:35 AM DOT COMPLIANCE SPECIALIST) Only the most recent of2 resultswithin the time period is included. SODIUM S/P/B 140 136 - 145 MMOL/L 10/24/2024 6:23 AM [facility] POTASSIUM S/P/B 3.8 3.5 - 5.1 MMOL/L 10/24/2024 6:23 AM [facility] Comment:SLIGHT HEMOLYSIS, RE SULT MAY BE AFFECTED. CHLORIDE S/P/B 106 98 - 107 MMOL/L 10/24/2024 6:23 AM [facility] CO2 24.4 21.0 - 32.0 MMOL/L 10/24/2024 6:23 AM [facility] GLUCOSE 107(H) 70 - 99 MG/DL 10/24/2024 6:23 AM [facility] Comment: FASTING GLUCOSE 100 TO 125 MG/DL IS CONSISTENT WITH IMPAIRED FASTING GLUCOSE. FASTING GLUCOSE >125 MG/DL IS CONSISTENT WITH DIABETES. RANDOM GLUCOSE >200 MG/DL WITH HYPERGLYCEMIC SYMPTOMS IS CONSISTENT WITH DIABETES. PER ADA GUIDELINES BUN 36(H) 6 - 24 MG/DL 10/24/2024 6:23 AM [facility] CREATININE S/P/B 3.61(H) 0.55 - 1.02 MG/DL 10/24/2024 6:23 AM [facility] CALCIUM S/P/B 8.0(L) 8.4 - 10.5 MG/DL 10/24/2024 6:23 AM [facility] BILIRUBIN TOTAL S/P/B 0.2 0.2 - 1.0 MG/DL 10/24/2024 6:23 AM [facility] Comment: THIS ASSAY IS NOT RECOMMENDED FOR PATIENTS UNDERGOING TREATMENT WITH ELTROMBOPAG DUE TO THE POTENTIAL FOR FALSELY ELEVATED RESULTS. ALKALINE PHOSPHATASE S/P/B 103 50 - 130 U/L 10/24/2024 6:23 AM [facility] AST 17 15 - 37 U/L 10/24/2024 6:23 AM [facility] ALT 13(L) 14 - 59 U/L 10/24/2024 6:23 AM [facility] TOTAL PROTEIN S/P/B 6.4 6.4 - 8.2 G/DL 10/24/2024 6:23 AM [facility] ALBUMIN S/P/B 2.6(L) 3.4 - 5.0 G/DL 10/24/2024 6:23 AM [facility] ANION GAP 9.6 5.0 - 15.0 MMOL/L 10/24/2024 6:23 AM [facility] OSMOLALITY (CALC) 299 MOSM/KG 025 6:23 AM [facility] Comment:REFERENCE RANGE NOT ESTABLISHED GFR ESTIMATE 14(L) >89 ML/MIN/1. 73 M2 10/24/2024 6:23 AM [facility] GFR NOTES GFR REFERENCE S: 10/24/2024 6:23 AM [facility] Comment: THE ESTIMATED GFR IS CALCULATED USING THE 2020 CKD-EPI EQUATION. THE FOLLOWING CATEGORIES FOR GRADING RENAL FUNCTION ARE RECOMMENDED BY THE INTERNATIONAL SOCIETY OF NEPHROLOGY (KDIGO 2012 CLINICAL PRACTICE GUIDELINE). G1,NORMAL OR HIGH: >89 ml/min/1.73 m2 G2,MILDLY DECREASED: 60-89 ml/min/1.73 m2 G3A,MILDLY TO MODERATELY DECREASED: 45-59 ml/min/1.73 m2 G3B,MODERATELY TO SEVERELY DECREASED: 30-44 ml/min/1.73 m2 G4,SEVERELY DECREASED: 15-29 ml/min/1.73 m2 G5,KIDNEY FAILURE: <15 ml/min/1.73 m2 10/24/2024 5:35 AM DOT COMPLIANCE SPECIALIST us José Miguel Lowe MD LABORATORY Final Result [facility] [address] [place] [id number], * (ABNORMAL) CBC W/DIFF AUTOMATED (10/24/2024 5:35 AM DOT COMPLIANCE SPECIALIST) Only the most recent of3 resultswithin the time period is included. WBC 10.99(H) 4.00 - 10.80 x10'3/uL 10/24/2024 5:50 AM [facility] RBC 3.09(L) 4.10 - 5.40 x10'6/uL 10/24/2024 5:50 AM [facility] HGB 8.9(L) 12.0 - 16.0 G/DL 10/24/2024 5:50 AM [facility] HCT 27.8(L) 36.0 - 47.0 % 10/24/2024 5:50 AM [facility] MCV 90.0 78.0 - 100.0 FL 10/24/2024 5:50 AM [facility] MCH 28.8 27.0 - 31.0 PG 10/24/2024 5:50 AM [facility] MCHC 32.0(L) 33.0 - 36.0 G/DL 10/24/2024 5:50 AM DOT COMPLIANCE SPECIALIST [facility] RDW 14.2 11.5 - 14.5 % 10/24/2024 5:50 AM [facility] PLT 328 150 - 350 x10'3/uL 10/24/2024 5:50 AM [facility] MPV 10.2 7.4 - 10.4 FL 10/24/2024 5:50 AM [facility] CBC COMMENT NORMAL REFERENCE RANGE NOT ESTABLISHED FOR THE PROPORTIONAL LEUKOCYTE DIFFERENTIAL. 10/24/2024 5:50 AM [facility] NEUTROPHILS % 61.5 % 10/24/2024 5:50 AM DOT COMPLIANCE SPECIALIST [facility] LYMPHOCYTES % 30.1 % 10/24/2024 5:50 AM DOT COMPLIANCE SPECIALIST [facility] MONOCYTES % 6.0 % 10/24/2024 5:50 AM DOT COMPLIANCE SPECIALIST [facility] EOSINOPHILS % 1.2 % 10/24/2024 5:50 AM DOT COMPLIANCE SPECIALIST [facility] BASOPHILS % 0.7 % 10/24/2024 5:50 AM [facility] IMMATURE GRANS % 0.5 % 10/25/19 5:50 AM DOT COMPLIANCE SPECIALIST [facility] NRBC % 0.0 % 10/24/2024 5:50 AM DOT COMPLIANCE SPECIALIST [facility] ABS. NEUTROPHILS 6.75 1.60 - 8.30 x10'3/uL 10/24/2024 5:50 AM DOT COMPLIANCE SPECIALIST [facility] ABS. LYMPHOCYTES 3.31 0.80 - 4.70 x10'3/uL 10/24/2024 5:50 AM [facility] ABS. MONOCYTES 0.66 0.00 - 1.50 x10'3/uL 10/24/2024 5:50 AM DOT COMPLIANCE SPECIALIST [facility] ABS. EOSINOPHILS 0.13 0.00 - 0.40 x10'3/uL 10/24/2024 5:50 AM DOT COMPLIANCE SPECIALIST [facility] ABS. BASOPHILS 0.08 0.00 - 0.20 x10'3/uL 10/24/2024 5:50 AM [facility] ABS. IMMATURE GRANULOCYTES 0.06(H) 0.00 - 0.03 x10'3/uL 10/24/2024 5:50 AM [facility] ABS. NUCLEATED RBC'S 0.00 0.00 - 0.01 x10'3/uL 10/24/2024 5:50 AM [facility] 10/24/2024 5:35 AM DOT COMPLIANCE SPECIALIST us José Miguel Lowe MD LABORATORY Final Result [facility] [place] [address], * PHOSPHORUS, INORGANIC PHOSPHATE (10/24/2024 5:35 AM DOT COMPLIANCE SPECIALIST) Only the most recent of2 resultswithin the time period is included. PHOSPHORUS 4.2 2.6 - 4.7 MG/DL 10/24/2024 6:23 AM DOT COMPLIANCE SPECIALIST [facility] 10/24/2024 5:35 AM DOT COMPLIANCE SPECIALIST us José Miguel Lowe MD LABORATORY Final Result Performing Organization Address [facility] [place] [address], * MAGNESIUM (10/24/2024 5:35 AM DOT COMPLIANCE SPECIALIST) Only the most recent of3 resultswithin the time period is included. MAGNESIUM 1.9 1.8 - 2.4 MG/DL 10/24/2024 6:23 AM DOT COMPLIANCE SPECIALIST [facility] 10/24/2024 5:35 AM DOT COMPLIANCE SPECIALIST us José Miguel Lowe MD LABORATORY Final Result Performing Organization Address [facility] [place] [address], * (ABNORMAL) POCT glucose (10/23/2024 8:53 AM DOT COMPLIANCE SPECIALIST) GLUCOSE POC 135(H) 70 - 99 MG/DL 10/23/2024 8:55 AM DOT COMPLIANCE SPECIALIST [facility] 10/23/2024 8:53 AM DOT COMPLIANCE SPECIALIST us Sridevi Eugene DO POCT ORDERABLES - DEVICE Final Result Performing Organization Address [facility] [place] [address], * CT ABD+PEL WO CON (10/23/2024 12:08 AM DOT COMPLIANCE SPECIALIST) Anatomical Region Laterality Modality Abdomen Computed Tomogra phy 10/23/2024 12:1 5 AM DOT COMPLIANCE SPECIALIST Impressions 10/23/2024 12:20 AM DOT COMPLIANCE SPECIALIST IMPRESSION: 1. ABNORMAL TREE-IN-BUD OPACITIES ARE NOTED IN THE RIGHT LUNG BASE SUGGESTING ACUTE VIRAL PNEUMONIA. 2. NO ACUTE INFLAMMATORY CHANGE, ABSCESS OR ASCITES IN THE ABDOMEN/PELVIS. 3. NO EVIDENCE OF MECHANICAL OBSTRUCTION OR PERFORATION. 4. HIATAL HERNIA. 5. DIFFUSE ATHEROSCLEROTIC VASCULAR CALCIFICATION WITH NO EVIDENCE OF AAA. 6. CHRONIC APPEARING FRACTURE DEFORMITY AT L5. Signed: Tr Watters MD Referred By: Interpreted By: Tr Watters MD, 10/23/2024 12:15 AM Narrative 10/23/2024 12:20 AM DOT COMPLIANCE SPECIALIST [address] [place] [address] PATIENT NAME: MRS. DEANNA PARTIDA EXAM: CT abdomen/pelvis without contrast DATE OF EXAM: 10/23/2024 COMPARISON EXAM: None INDICATION: Nausea and vomiting TECHNIQUE: Axial images obtained from xiphoid process to pubic symphysis without contrast using low-dose CT technique. Sagittal and coronal reconstruction. FINDINGS: CT ABDOMEN: Visualized portions of the lung bases demonstrate abnormal tree-in-bud opacities in the right lung base right middle lobe region suggesting acute viral pneumonitis. No significant pleural effusion. Small hiatal hernia. The liver is normal in size. No significant focal intrahepatic lesion. No evidence of cholelithiasis or gallbladder wall thickening. The spleen, pancreas, and the adrenal glands are grossly unremarkable. There is no acute perirenal inflammatory stranding or fluid. No evidence of ureteral stone nor hydronephrosis on either side. No evidence of solid renal mass lesion. There is no acute inflammatory change, abscess or ascites. No evidence of mechanical bowel obstruction or perforation. No significant lymphadenopathy. Diffuse atherosclerotic vascular calcification with no evidence of AAA. The IVC is unremarkable. CT PELVIS: Visualization of pelvic structures partially degraded by streak artifact from right hip prosthesis. No definite pelvic mass or adenopathy. No acute inflammatory change, abscess nor ascites. Diffuse atherosclerotic vascular calcification. Chronic appearing fracture deformity at L5 with chronic degenerative disc disease at L5-S1. Procedure Note Tr Watters MD - 10/23/2024 [facility] [address] [place] [address] PATIENT NAME: MRS. DEANNA PARTIDA EXAM: CT abdomen/pelvis without contrast DATE OF EXAM: 10/23/2024 COMPARISON EXAM: None INDICATION: Nausea and vomiting TECHNIQUE: Axial images obtained from xiphoid process to pubic symphysiswithout contrast using low-dose CT technique. Sagittal and coronalreconstruction. FINDINGS: CT ABDOMEN: Visualized portions of the lung bases demonstrate [id number] opacities in the right lung base right middle lobe regionsuggesting acute viral pneumonitis. No significant pleural effusion.Small hiatal hernia. The liver is normal in size. No significant focal intrahepatic lesion.No evidence of cholelithiasis or gallbladder wall thickening. The spleen, pancreas, and the adrenal glands are grossly unremarkable. There is no acute perirenal inflammatory stranding or fluid. No evidenceof ureteral stone nor hydronephrosis on either side. No evidence of solidrenal mass lesion. There is no acute inflammatory change, abscess or ascites. No evidence ofmechanical bowel obstruction or perforation. No significantlymphadenopathy. Diffuse atherosclerotic vascular calcification with noevidence of AAA. The IVC is unremarkable. CT PELVIS: Visualization of pelvic structures partially degraded by streakartifact from right hip prosthesis. No definite pelvic mass oradenopathy. No acute inflammatory change, abscess nor ascites. Diffuseatherosclerotic vascular calcification. Chronic appearing fracturedeformity at L5 with chronic degenerative disc disease at L5-S1. IMPRESSION: 1. ABNORMAL TREE-IN-BUD OPACITIES ARE NOTED IN THE RIGHT LUNG BASESUGGESTING ACUTE VIRAL PNEUMONIA. 2. NO ACUTE INFLAMMATORY CHANGE, ABSCESS OR ASCITES IN THEABDOMEN/PELVIS. 3. NO EVIDENCE OF MECHANICAL OBSTRUCTION OR PERFORATION. 4. HIATAL HERNIA. 5. DIFFUSE ATHEROSCLEROTIC VASCULAR CALCIFICATION WITH NO EVIDENCE OFAAA. 6. CHRONIC APPEARING FRACTURE DEFORMITY AT L5. Signed: Tr Watters MD Referred By: Interpreted By: Tr Watters MD, 10/23/2024 12:15 AM Sridevi Eugene DO CT Final Result * XR CHEST PORTABLE (10/22/2024 11:17 PM DOT COMPLIANCE SPECIALIST) Anatomical Region Laterality Modality Chest Radiographic Dee ging 10/22/2024 11:2 4 PM DOT COMPLIANCE SPECIALIST Impressions 10/22/2024 11:25 PM DOT COMPLIANCE SPECIALIST IMPRESSION: No radiographic evidence of an acute cardiopulmonary abnormality. Referred By: Interpreted By: Jaxon Delgado MD, 10/22/2024 11:24 PM Narrative 10/22/2024 11:25 PM DOT COMPLIANCE SPECIALIST [address] [place] [address] EXAMINATION: XR CHEST PORTABLE, 10/22/2024 11:25 PM TECHNIQUE: Upright AP portable radiograph of the chest HISTORY: Cough for one week, leukocytosis. COMPARISON: Chest radiograph 08/15/2024 FINDINGS: Heart size is normal. Pulmonary vascular pattern appears unremarkable. No focal pulmonary consolidation. No pleural effusion. No pneumothorax. Marked chronic appearing deformity involving the right humeral head, similar to the prior chest radiograph examination from 08/15/2024. Procedure Note Jaxon Delgado MD - 10/22/[address] [place] [address] EXAMINATION: XR CHEST PORTABLE, 10/22/2024 11:25 PM TECHNIQUE: Upright AP portable radiograph of the chest HISTORY: Cough for one week, leukocytosis. COMPARISON: Chest radiograph 08/15/2024 FINDINGS: Heart size is normal. Pulmonary vascular pattern appearsunremarkable. No focal pulmonary consolidation. No pleural effusion. Nopneumothorax. Marked chronic appearing deformity involving the righthumeral head, similar to the prior chest radiograph examination from08/15/2024. IMPRESSION: No radiographic evidence of an acute cardiopulmonary abnormality. Referred By: Interpreted By: Jaxon Delgado MD, 10/22/2024 11:24 PM us Sridevi Jennifer DO GENERAL IMAGING Final Result * ECG 12 lead (10/22/2024 10:25 PM DOT COMPLIANCE SPECIALIST) 10/22/2024 10:2 5 PM DOT COMPLIANCE SPECIALIST Narrative [facility] - 10/23/2024 10:02 AM DOT COMPLIANCE SPECIALIST [address] [place] [address] Test Date: 2024-10-22 Pat Name: [facility] Department: 3 Room: EXAM 808 Gender: Female Monument Mason: : 1965 Requested By: SRIDEVI EUGENE Order Number: [id number] Reading MD: Patel Barraza Measurements Intervals Mobile Rate: 93 P: 25 DE: 176 QRS: -4 QRSD: 147 T: 132 QT: 392 QTc: 489 Interpretive Statements ELECTRONIC VENTRICULAR PACEMAKER ABNORMAL RHYTHM ECG COMPLIANCE SPECIALIST Procedure Note Patel Barraza MD - 10/23/[address] [place] [address] Test Date: 2024-10-22 Pat Name: [facility] Department: 3 Room: EXAM 808 Gender: Female Monument Mason: : 1965 Requested By: SRIDEVI EUGENE Order Number: [id number] Reading : Patel Barraza Measurements Intervals Mobile Rate: 93 P: 25 DE: 176 QRS: -4 QRSD: 147 T: 132 QT: 392 QTc: 489 Interpretive Statements ELECTRONIC VENTRICULAR PACEMAKER ABNORMAL RHYTHM ECG COMPLIANCE SPECIALIST Sridevi Eugene DO ECG ORDERABLES Final Result [facility] * LACTIC ACID W REFLEX (SEPSIS) (10/22/2024 10:25 PM DOT COMPLIANCE SPECIALIST) LACTIC ACID VENOUS 1.4 0.4 - 2.0 MMOL/L 10/23/2024 12:22 AM DOT COMPLIANCE SPECIALIST [facility] 10/22/2024 10:2 5 PM DOT COMPLIANCE SPECIALIST us Sridevi Eugene DO LABORATORY Final Result Performing Organization Address City/[facility]/ZIP Co de Phone Number [facility] [address] [place] [address], * (ABNORMAL) TROPONIN, QUANT (10/22/2024 10:25 PM DOT COMPLIANCE SPECIALIST) TROPONIN I HIGH SENSITIVITY 67(H) 0 - 51 ng/L 10/22/2024 11:02 PM DOT COMPLIANCE SPECIALIST [facility] 10/22/2024 10:2 5 PM DOT COMPLIANCE SPECIALIST us Sridevi Eugene DO LABORATORY Final Result Performing Organization Address [facility] Co de Phone Number [facility] [address] [place] [address], * THYROID STIM HORMONE, TSH (10/22/2024 10:25 PM DOT COMPLIANCE SPECIALIST) TSH 0.369 0.358 - 3.740 uIU/ML 10/22/2024 11:02 PM DOT COMPLIANCE SPECIALIST [facility] Comment: ASSAY PERFORMED BY CHEMILUMINESCENT IMMUNOASSAY METHODOLOGY USING SIEMENS DIMENSION REAGENT. PATIENT RESULTS DETERMINED BY ASSAYS FROM DIFFERENT MANUFACTURERS AND/OR BY DIFFERENT METHODS MAY NOT BE COMPARABLE. 10/22/2024 10:2 5 PM DOT COMPLIANCE SPECIALIST us Sridevi Eugene DO LABORATORY Final Result Performing Organization Address City/[facility]/ZIP Co de Phone Number [facility] [address] [place] [address], [place] [phone] * LIPASE (10/22/2024 10:25 PM DOT COMPLIANCE SPECIALIST) LIPASE 25 16 - 77 UNITS/L 10/22/2024 11:02 PM DOT COMPLIANCE SPECIALIST [facility] 10/22/2024 10:2 5 PM DOT COMPLIANCE SPECIALIST us Sridevi Eugene DO LABORATORY Final Result Performing Organization Address City/State/[facility] Co de Phone Number [facility] [address] [place] [phone], * (ABNORMAL) SALICYLATE (10/22/2024 10:25 PM DOT COMPLIANCE SPECIALIST) SALICYLATES 0.6(L) 2.8 - 20.0 MG/DL 10/22/2024 11:02 PM DOT COMPLIANCE SPECIALIST [facility] 10/22/2024 10:2 5 PM DOT COMPLIANCE SPECIALIST us Sridevi Eugene DO LABORATORY Final Result Performing Organization Address [facility] Co de Phone Number [facility] [address] [place] [address], * ETHANOL (10/22/2024 10:25 PM DOT COMPLIANCE SPECIALIST) ALCOHOL S/P/B <0.003 <0.003 G/DL 10/22/2024 11:02 PM DOT COMPLIANCE SPECIALIST [facility] 10/22/2024 10:2 5 PM DOT COMPLIANCE SPECIALIST us Sridevi Eugene DO LABORATORY Final Result Performing Organization Address [facility] Co de Phone Number [facility] [address] [place] [address], * (ABNORMAL) ACETAMINOPHEN (10/22/2024 10:25 PM DOT COMPLIANCE SPECIALIST) ACETAMINOPHEN S/P/B 0.0(L) 10.0 - 30.0 MCG/ML 10/22/2024 11:02 PM DOT COMPLIANCE SPECIALIST [facility] 10/22/2024 10:2 5 PM DOT COMPLIANCE SPECIALIST us Sridevi Eugene DO LABORATORY Final Result Performing Organization Address [facility] Co de Phone Number [facility] [address] [place] [id number], * CORONAVIRUS (COVID-19) ANTIGEN (10/22/2024 10:00 PM DOT COMPLIANCE SPECIALIST) CORONAVIRUS ANTIGEN IA NEGATIVE NEGATIVE 10/22/2024 10:40 PM DOT COMPLIANCE SPECIALIST [facility] Comment: NEGATIVE RESULTS DO NOT RULE OUT SARS-COV-2 INFECTION AND SHOULD NOT BE USED THE SOLE BASIS FOR TREATMENT OR PATIENT MANAGEMENT DECISIONS, INCLUDING INFECTION CONTROL DECISIONS. NEGATIVE RESULTS SHOULD BE CONSIDERED IN THE CONTEXT OF A PATIENT'S RECENT EXPOSURES, HISTORY AND THE PRESENCE OF CLINICAL SIGNS AND SYMPTOMS CONSISTENT WITH COVID 19. THIS TEST HAS BEEN AUTHORIZED BY THE FDA UNDER AN EMERGENCY USE AUTHORIZATION (EUA) FOR USE BY AUTHORIZED LABORATORIES. SPECIMEN TYPE NASAL 10/22/2024 10:12 PM DOT COMPLIANCE SPECIALIST [facility] NASAL NASAL STRUCTURE / Unknown 10/22/2024 10:00 PM DOT COMPLIANCE SPECIALIST Sridevi Eugene DO MICROBIOLOGY - GENERAL ORDERABL ES Final Result [facility] [address] [place] [address], * DRUG SCREEN RAPID (10/22/2024 10:00 PM DOT COMPLIANCE SPECIALIST) CANNABINOIDS SCREEN (U) NEGATIVE NEGATIVE 10/22/2024 10:30 PM DOT COMPLIANCE SPECIALIST [facility] PHENCYCLIDINE PCP (U) NEGATIVE NEGATIVE 10/22/2024 10:30 PM DOT COMPLIANCE SPECIALIST [facility] COCAINE METABOLITES (U) NEGATIVE NEGATIVE 10/22/2024 10:30 PM DOT COMPLIANCE SPECIALIST [facility] METHAMPHETAMINE SCREEN (U) NEGATIVE NEGATIVE 10/22/2024 10:30 PM DOT COMPLIANCE SPECIALIST [facility] OPIATE SCREEN (U) NEGATIVE NEGATIVE 025 10:30 PM DOT COMPLIANCE SPECIALIST [facility] AMPHETAMINE SCREEN (U) NEGATIVE NEGATIVE 10/22/2024 10:30 PM DOT COMPLIANCE SPECIALIST [facility] BENZODIAZEPINES SCREEN (U) NEGATIVE NEGATIVE 10/22/2024 10:30 PM DOT COMPLIANCE SPECIALIST [facility] TRICYCLIC ANTIDEPRESSANT SCREEN (U) NEGATIVE NEGATIVE 10/22/2024 10:30 PM DOT COMPLIANCE SPECIALIST [facility] METHADONE (U) NEGATIVE NEGATIVE 10/22/2024 10:30 PM DOT COMPLIANCE SPECIALIST [facility] BARBITURATES SCREEN (U) NEGATIVE NEGATIVE 10/22/2024 10:30 PM DOT COMPLIANCE SPECIALIST [facility] OXYCODONE SCREEN (U) NEGATIVE NEGATIVE 10/22/2024 10:30 PM DOT COMPLIANCE SPECIALIST [facility] URINE TOX COMMENT THIS TEST METHODOLOGY IS DESIGNED AND OFFERED A RAPID TURNAROUND, QUALITATIVE SCREENING PROCEDURE TO AID IN THE IMMEDIATE MEDICAL ASSESSMENT OF PATIENTS SUSPECTED OF SUBSTANCE ABUSE. 10/22/2024 10:12 PM DOT COMPLIANCE SPECIALIST [facility] Comment: CLINICAL CONSIDERATION AND PROFESSIONAL JUDGMENT MUST BE APPLIED TO ANY DRUG OF ABUSE TEST RESULT, BOTH POSITIVE AND NEGATIVE. CONFIRMATORY QUANTITATIVE RESULTS ARE AVAILABLE THROUGH OUR REFERENCE LAB[facility]AT[facility]. URINE SPECIMEN / Unknown 10/22/2024 10:00 PM DOT COMPLIANCE SPECIALIST us Sridevi Eugene DO URINE ORDERABLES Final Result Performing Organization Address [facility] Co de Phone Number [facility] [address] [place] [address], * INFLUENZA A & B (10/22/2024 10:00 PM DOT COMPLIANCE SPECIALIST) SPECIMEN TYPE (INFLUENZA) NASOPHARYNGEAL SWAB 10/22/2024 10:12 PM DOT COMPLIANCE SPECIALIST [facility] INFLUENZA A NEGATIVE NEGATIVE 10/22/2024 10:40 PM DOT COMPLIANCE SPECIALIST [facility] INFLUENZA B NEGATIVE NEGATIVE 10/22/2024 10:40 PM DOT COMPLIANCE SPECIALIST [facility] Comment: A NEGATIVE RESULT DOES NOT EXCLUDE INFLUENZA VIRUS INFECTION. IF INFLUENZA IS CIRCULATING IN YOUR COMMUNITY, A DIAGNOSIS OF INFLUENZA SHOULD BE CONSIDERED BASED ON A PATIENT'S CLINICAL PRESENTATION AND EMPIRIC ANTIVIRAL TREATMENT SHOULD BE CONSIDERED IF INDICATED. NASOPHARYNGEAL SWAB / Unknown 10/22/2024 10:00 PM DOT COMPLIANCE SPECIALIST us Sridevi Eugene DO MICROBIOLOGY - GENERAL ORDERABL ES Final Result Performing Organization Address [facility]/ZIP Co de Phone Number [facility] [address] [place] [address], * (ABNORMAL) URINALYSIS (10/22/2024 10:00 PM DOT COMPLIANCE SPECIALIST) COLOR (U) YELLOW 10/22/2024 10:35 PM [facility] TRANSPARENCY CLEAR 10/22/2024 10:35 PM [facility] SPECIFIC GRAVITY (U) 1.025 1.000 - 1.025 10/22/2024 10:35 PM [facility] U PH 7.5 5.0 - 8.0 10/22/2024 10:35 PM [facility] LEUKOCYTES (U) NEGATIVE NEGATIVE 10/22/2024 10:35 PM [facility] NITRITES NEGATIVE NEGATIVE 10/22/2024 10:35 PM [facility] PROTEIN RANDOM (U) 3+(A) NEGATIVE 10/22/2024 10:35 PM [facility] GLUCOSE (U) 2+(A) NEGATIVE 10/22/2024 10:35 PM [facility] KETONES MG/DL (U) TRACE(A) NEGATIVE 10/22/2024 10:35 PM [facility] UROBILINOGEN 0.2 <1.0 EU/DL 10/22/2024 10:35 PM [facility] BILIRUBIN (U) NEGATIVE NEGATIVE 10/22/2024 10:35 PM [facility] BLOOD (U) TRACE(A) NEGATIVE 10/22/2024 10:35 PM [facility] WBC/HPF 0-5 0 - 5 /HPF 10/22/2024 10:35 PM [facility] RBC/HPF 0-5 0 - 5 /HPF 10/22/2024 10:35 PM [facility] EPI/LPF FEW /LPF 10/22/2024 10:35 PM [facility] BACTERIA (U) 1+ /HPF 10/22/2024 10:35 PM [facility] MUCUS PRESENT 10/22/2024 10:35 PM [facility] URINE SPECIMEN OBTAINED BY CLEAN CATCH PROCEDURE / Unknown 10/22/2024 10:00 PM DOT COMPLIANCE SPECIALIST us Sridevi Eugene DO URINE ORDERABLES Final Result [facility] [address] [place] [address], from Last 3 Months Insurance MEDICARE PART A MEDICAID [facility] * Guarantor: Deanna Partida Account Type Relation to Patient Date of Phone Billing Address Aly Norman B3 Self 1965 [address] [place] [address] Advance Directives Documents on File Type Date Recorded Patient News Writer Expl anation Advance Directives and Livin g Will 07/10/2023 4:10 PM * Full Code (Latest Code Status on File) Date Activated Date Inactivated Comments 10/23/2024 12:51 PM 10/24/2024 7:17 PM * Full Code Date Activated Date Inactivated Comments 08/14/2024 7:27 PM 08/16/2024 7:07 PM * Full Code Date Activated Date Inactivated Comments 09/08/2023 4:19 AM 09/14/2023 8:40 PM * Full Code Date Activated Date Inactivated Comments 05/04/2023 7:49 PM 05/24/2023 7:09 PM * Full Code Date Activated Date Inactivated Comments 02/26/2022 1:37 PM 03/17/2022 7:40 PM Care Teams Flight Attendant/Inflight Manager Relationship Specialty Start Date End Date Destinee Rodriguez NP PCP - General NURSE PRACTITIONER 09/08/23
[2024-12-18] MEDS: SODIUM CHLORIDE 0.9% IV 1,000 ML 999 ML IV CONT (18:01)
[2024-12-18] MEDS: ONDANSETRON INJ 4 MG/2 ML VIAL IV PUSH (18:02)
[2024-12-18 18:07] LABS: Basophils Absolute Auto 0.05 K/mm3 (0.00-0.10); Basophils Percent Auto 0.6 % (0.0-1.0); Eosinophils Absolute Auto 0.11 K/mm3 (0.02-0.50); Eosinophils Percent Auto 1.3 % (1.0-6.0); Hematocrit 31.5 % (35.0-49.0); Hemoglobin 9.9 g/dL (12.0-15.0); Immature Granulocyte Absolute 0.02 K/mm3 (0.00-0.00); Immature Granulocyte Percent A 0.2 % (0.0-0.0); Lymphocytes Percent Auto 23.3 % (18.0-42.0); Mean Corpuscular HGB Conc 31.4 g/dL (32-36); Mean Corpuscular Hemoglobin 28.2 pg (27.0-31.0); Mean Corpuscular Volume 89.7 fL (78.0-102.0); Mean Platelet Volume 10.4 fl (9.2-11.8); Monocytes Absolute Auto 0.53 K/mm3 (0.10-0.90); Monocytes Percent Auto 6.2 % (2.0-11.0); Neutrophils Absolute Auto 5.86 K/mm3 (1.70-7.20); Neutrophils Percent Auto 68.4 % (50.0-70.0); Platelet Count Result 327 K/mm3 (150-420); Red Blood Count 3.51 M/mm3 (4.20-5.40); Red Cell Distribution Width 13.7 % (11.6-14.4); White Blood Count 8.6 K/mm3 (4.8-10.8)
--- NOTE | 2024-12-18 18:25 | PC.NURSE ---
ERP aware of increasing blood pressure.
[2024-12-18 18:44] LABS: Influenza A QL RT-PCR Negative (Negative); Influenza B QL RT-PCR Negative (Negative); RSV RNA, RT-PCR Negative (Negative); SARS-CoV-2 RNA PCR Negative (Negative)
[2024-12-18 19:05] LABS: Alanine Aminotransferase 13 U/L (6-35); Albumin Level 4.1 g/dL (3.5-5.1); Alkaline Phosphatase 127 U/L (38-126); Anion Gap 15 mmol/L (4-12); Aspartate Amino Transferase 21 U/L (14-36); Bilirubin,Total 0.5 mg/dL (0.2-1.3); Blood Urea Nitrogen 39 mg/dL (7-17); Calcium 9.2 mg/dL (8.4-10.2); Carbon Dioxide 18 mmol/L (22-30); Chloride 108 mmol/L (98-107); Estimated Glomerular Filt Rate 14; Glucose 145 mg/dL (65-110); Osmolality Calculated 304 mOsm/kg (285-295); Potassium 3.6 mmol/L (3.4-5.0); Sodium 141 mmol/L (137-145)
--- NOTE | 2024-12-18 19:12 | ED.NAVMDI ---
HPI - Nausea/Vomiting/Diarrhea General Chief complaint: Nausea/Vomiting/Diarrhea Stated complaint: vomiting Time Seen by Provider: 12/18/24 17:32 Source: patient and EMS Mode of arrival: EMS Limitations: physical limitation History of Present Illness HPI Narrative: This is a 59-year-old female with a history of diabetes presents with nausea vomiting with some mild diarrhea with no abdominal pain no chest pain no shortness of breath no fever chills. Patient with some no chest pain or shortness of breath was seen at [facility] approximately 1 week ago for similar episodes and had a CT scan performed which showed no acute abnormalities at that time. Patient with nausea vomiting and weakness. MD elicited complaint: nausea and vomiting Onset (ago): day(s) Description of vomiting: watery Related Data Home Medications ?Medication ?Instructions ?Recorded ?Confirmed ?Last Taken ?Type Novolog U-100 Insulin aspart See Rx Instructions .Route .COMPLEX 02/26/22 02/26/22 Unknown History insulin glargine 100 unit/mL 40 unit subcut DAILY 02/26/22 02/26/22 Unknown History subcutaneous cartridge Allergies Allergy/AdvReac Type Severity Reaction Status Date / Time No Known Allergies Allergy Unknown Verified 12/18/24 17:52 Review of Systems Review of Systems: All systems reviewed & are unremarkable except as noted in HPI and below PMFSH Past Medical History Medical History Intention tremor Osteomyelitis Type 2 diabetes mellitus Surgical History Surgical History H/O foot surgery Amputation toe History of knee replacement resection of 5th metatarsal Social History Social History Smoking status: Never smoker Alcohol intake: never Substance use: never Exam Const: General: ill appearing Nutritional Appearance: thin Orientation/consciousness: patient oriented x3 Limitations: no limitations HENMT: Head: normal to inspection Eyes: Conjunctivae: conjunctivae normal Neck: Neck: normal visual inspection Chest: Chest palpation & inspection: normal inspection of the chest Resp: Effort & Inspection: normal respiratory effort Auscultation: clear to auscultation bilaterally Cardio: Rate: regular rate Rhythm: regular rhythm GI: GI Palp: Yes Soft to palpation Auscultation: normal bowel sounds : General: Yes bladder normal to palpation Urinary Catheter: Urinary Catheter: patent and draining Back/Spine/Pelvis: Back: no CVA tenderness Skin: General skin exam: normal color Rashes: no rashes Neuro: General: patient oriented x3, moves all extremities and no meningeal signs Course Course Emergency Course: Patient with nausea vomiting with a history of diabetes, received IV fluids and IV Zofran patient states that her nausea vomiting has not improved considerably. The patient had blood work which showed no white count blood pressure that is elevated at 207 systolic and received a dose of 5mg IV metoprolol. Patient has a elevated creatinine mildly above her baseline which is acute on chronic kidney failure and will continue IV fluids and a unit to hospitalist service. Vital Signs Vital signs: Vital Signs Temperature 36.7 C 12/18/24 17:15 Pulse Rate 85 12/18/24 17:15 Respiratory Rate 12/18/24 17:15 Blood Pressure 157/89 H 12/18/24 17:15 Pulse Oximetry 98 12/18/24 17:15 Oxygen Delivery Room Air 12/18/24 17:15 Temperature 36.7 C 12/18/24 17:15 Pulse Rate 85 12/18/24 17:15 Respiratory Rate 20 12/18/24 17:15 Blood Pressure 157/89 H 12/18/24 17:15 Pulse Oximetry 98 12/18/24 17:15 Oxygen Delivery Room Air 12/18/24 17:15 MDM - Nausea/Vomiting/Diarrhea Lab Data 12/18/24 18:08 12/18/24 18:08 Labs: Lab Results 12/18/24 12/18/24 Range/Units 17:47 18:08 WBC 8.6 (4.8-10.8) K/mm3 RBC 3.51 L (4.20-5.40) M/mm3 Hgb 9.9 L (12.0-15.0) g/dL Hct 31.5 L (35.0-49.0) % MCV 89.7 (78.0-102.0) fL MCH 28.2 (27.0-31.0) pg MCHC 31.4 L (32-36) g/dL RDW 13.7 (11.6-14.4) % Plt Count 327 (150-420) K/mm3 MPV 10.4 (9.2-11.8) fl Immature Gran % (Auto) 0.2 H (0.0-0.0) % Neut % (Auto) 68.4 (50.0-70.0) % Lymph % (Auto) 23.3 (18.0-42.0) % [place] % (Auto) 6.2 (2.0-11.0) % Eos % (Auto) 1.3 (1.0-6.0) % Baso % (Auto) 0.6 (0.0-1.0) % Lymph # (Auto) 2.00 (1.10-4.50) K/mm3 [place] # (Auto) 0.53 (0.10-0.90) K/mm3 Eos # (Auto) 0.11 (0.02-0.50) K/mm3 Baso # (Auto) 0.05 (0.00-0.10) K/mm3 Abs Immat Gran (auto) 0.02 H (0.00-0.00) K/mm3 Absolute Neuts (auto) 5.86 (1.70-7.20) K/mm3 Absolute Nucleated RBC 0.00 (0.00-0.00) K/mm3 Nucleated RBC % 0.0 (0-0.0) % Sodium 141 (137-145) mmol/L Potassium 3.6 (3.4-5.0) mmol/L Chloride 108 H (98-107) mmol/L Carbon Dioxide 18 L (22-30) mmol/L Anion Gap 15 H (4-12) mmol/L BUN 39 H (7-17) mg/dL Creatinine 3.34 H (0.7-1.0) mg/dL Estim Creat Clear Calc Not Reportable Estimated GFR 14 L (59 - ) Glucose 145 H (65-110) mg/dL Calculated Osmolality Pending Lactic Acid 1.0 (0.7-2.0) mmol/L Calcium 9.2 (8.4-10.2) mg/dL Total Bilirubin 0.5 (0.2-1.3) mg/dL AST 21 (14-36) U/L ALT 13 (6-35) U/L Alkaline Phosphatase 127 H (38-126) U/L Total Protein 8.0 (6.3-8.2) g/dL Albumin 4.1 (3.5-5.1) g/dL Urine Color Light yellow (Yellow) Urine Appearance Clear (Clear) Urine pH 5.5 (5.0-8.0) Ur Specific [place] 1.015 (1.010-1.020) Urine Protein 2+ H (Negative) Urine Glucose (UA) Negative (Negative) Urine Ketones Negative (Negative) Ur Blood (Man) 1+ H (Negative) Urine Nitrate Negative (Negative) Urine Bilirubin Negative (Negative) Urine Urobilinogen 0.2 (0.2-1.0) mg/dL Leukocyte Esterase Rfl Negative (Negative) BRIAN/UL Urine RBC 3-5 H (0-2) /hpf Urine WBC 0-3 (0-3) /hpf Ur Squamous Epith Cells Rare (Few) /hpf Amorphous Sediment Moderate H (None) Urine Bacteria 4+ (None) /hpf Influenza A (RT-PCR) Negative (Negative) Influenza B (RT-PCR) Negative (Negative) RSV (RT-PCR) Negative (Negative) SARS-CoV-2 RNA (RT-PCR) Negative (Negative) Critical Care Time Critical Care Time Critical Care Time: No Discharge Plan Discharge Clinical Impression: Gastroenteritis, Dehydration Acute on chronic kidney failure Qualifiers: Acute renal failure type: unspecified Chronic kidney disease stage: unspecified stage Qualified Code(s): N17.9 - Acute kidney failure, unspecified Diabetes mellitus Qualifiers: Diabetes mellitus type: type 2 Diabetes mellitus senior living 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 Follow-up/Referrals: UNKNOWN,DOCTOR [Primary Care Provider] -
[2024-12-18] MEDS: METOPROLOL TARTRATE INJ 5 MG/5 ML VIAL IV PUSH (19:28)
[2024-12-18] MEDS: METOCLOPRAMIDE HCL INJ 10 MG/2 ML VIAL IV PUSH (19:39)
[2024-12-18] MEDS: SODIUM CHLORIDE 0.9% IV 1,000 ML 100 ML IV CONT (19:40)
--- NOTE | 2024-12-18 21:30 | ADMGEN ---
This patient, Deanna Partida, was admitted to 2nd Floor Room 207-1. Patient/family oriented to hospital policies and general routines including ID bracelet, bed and alarms, pain management, procedures, bathroom and other care routines, personal items, smoking policy, room service/diet, and visiting hours. Information on how to activate the Rapid Response Team has been discussed. Patient/Family are encouraged to report perceived risks to care and to ask questions if they do not understand what they are told or what they should do.
[2024-12-18] MEDS: hydrALAZINE HCL 25 MG TABLET PO (22:29)
[2024-12-18 22:43] LABS: Glucose Point of Care 203 mg/dl (65-105)
[2024-12-19] MEDS: SODIUM CHLORIDE 0.9% IV 1,000 ML 100 ML IV CONT ×3 (01:08→23:46)
[2024-12-19] MEDS: ONDANSETRON INJ 4 MG/2 ML VIAL IV PUSH ×2 (01:25→14:07)
--- NOTE | 2024-12-19 01:36 | PC.NURSE ---
Full bed change completed, emesis of brown liquid noted, patient cleaned. fluids infusing as ordered, zofran IVP given for nausea.
[2024-12-19 04:37] LABS: Basophils Absolute Auto 0.03 K/mm3 (0.00-0.10); Basophils Percent Auto 0.3 % (0.0-1.0); Eosinophils Absolute Auto 0.01 K/mm3 (0.02-0.50); Eosinophils Percent Auto 0.1 % (1.0-6.0); Hematocrit 31.8 % (35.0-49.0); Immature Granulocyte Absolute 0.03 K/mm3 (0.00-0.00); Immature Granulocyte Percent A 0.3 % (0.0-0.0); Lymphocytes Absolute Auto 1.33 K/mm3 (1.10-4.50); Lymphocytes Percent Auto 12.4 % (18.0-42.0); Mean Corpuscular HGB Conc 31.4 g/dL (32-36); Mean Corpuscular Hemoglobin 28.6 pg (27.0-31.0); Mean Corpuscular Volume 90.9 fL (78.0-102.0); Mean Platelet Volume 10.9 fl (9.2-11.8); Monocytes Absolute Auto 0.24 K/mm3 (0.10-0.90); Monocytes Percent Auto 2.2 % (2.0-11.0); Neutrophils Absolute Auto 9.06 K/mm3 (1.70-7.20); Neutrophils Percent Auto 84.7 % (50.0-70.0); Platelet Count Result 302 K/mm3 (150-420); Red Cell Distribution Width 13.9 % (11.6-14.4); White Blood Count 10.7 K/mm3 (4.8-10.8)
[2024-12-19 05:02] LABS: Alanine Aminotransferase 18 U/L (14-59); Albumin Level 3.5 g/dL (3.4-5.0); Alkaline Phosphatase 139 U/L (46-116); Anion Gap 14 mmol/L (4-12); Aspartate Amino Transferase 17 U/L (15-37); Bilirubin,Total 0.3 mg/dL (0.00-1.00); Blood Urea Nitrogen 35 mg/dL (7-18); Calcium 8.8 mg/dL (8.5-10.1); Carbon Dioxide 22 mmol/L (21-32); Chloride 109 mmol/L (98-108); Estimated Glomerular Filt Rate 15; Glucose 198 mg/dL (70-99); Osmolality Calculated 314 mOsm/kg (285-295); Potassium 4.4 mmol/L (3.5-5.1); Sodium 145 mmol/L (136-145); Total Protein 7.8 g/dL (6.4-8.2)
[2024-12-19 07:44] LABS: Glucose Point of Care 146 mg/dl (65-105)
--- NOTE | 2024-12-19 11:19 | PC.NURSE ---
Downtime today from [id number]. New orders written. CT of chest/Abdomen/Pelvis w/o contrast. Pfeiffer diet to clear liquids. Orders written during downtime per H. Jessica DA SILVA.
--- NOTE | 2024-12-19 11:43 | P.HP_ITS ---
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 She denies any sick contacts. She denies any fever, chills, shortness of breath, chest pain. Workup in the hospital included a chest x-ray which was negative. Initial labs shown a normal white blood cell count of 8.6, hemoglobin 9.9, potassium 3.6, bicarb 18, anion gap 15, creatinine 3.34, EGFR 14, blood sugars ranging 145-203, lactic acid was normal at 1.0, alkaline phosphate 127. UA was obtained which showed 2+ urine protein, 1+ urine blood, 3-5 urine RBC, moderate amorphous sediment, 4+ urine bacteria. Respiratory panel was negative for influenza a and B, RSV, COVID. Blood and urine cultures were obtained and pending. EKG showed sinus rhythm with first- degree AV block and a left bundle branch block with a rate of 81, QTC 504. In the ED she was given 1 L of normal saline, Zofran, and started on Rocephin while in the ED. Review of Systems Review of Systems: All systems reviewed & are unremarkable except as noted in HPI and below PMFSH Past Medical History Medical History Chronic kidney disease CHF (congestive heart failure) Hyperlipidemia Hypertension Intention tremor Osteomyelitis Type 2 diabetes mellitus Surgical History Surgical History H/O foot surgery Amputation toe History of knee replacement resection of 5th metatarsal Social History Social History Smoking status: Never smoker Second hand tobacco smoke exposure: No Alcohol intake: unknown Substance use: unknown Other substance usage details: Patient stated I don't want to talk anymore. I feel miserable. and quit. Spiritual care concerns: No Meds Home Medications and Allergies Home Medications ?Medication ?Instructions ?Recorded ?Confirmed ?Type Novolog U-100 Insulin aspart See Rx Instructions .Route .COMPLEX 02/26/22 12/18/24 History insulin glargine 100 unit/mL 40 unit subcut DAILY 02/26/22 12/18/24 History subcutaneous cartridge amlodipine 10 mg tablet 10 mg PO DAILY 12/18/24 12/18/24 History aspirin 81 mg tablet,delayed 81 mg PO DAILY 12/18/24 12/18/24 History release (Adult Aspirin Regimen) atorvastatin 80 mg tablet (Lipitor) 80 mg PO HS 12/18/24 12/18/24 History bumetanide 1 mg tablet 1 mg PO DAILY 12/18/24 12/18/24 History darbepoetin jeffrey-albumin 40 mcg/mL 40 mcg subcut MONTHLY PRN low hgb 12/18/24 12/18/24 History in albumin injection famotidine 40 mg tablet 40 mg PO BID 12/18/24 12/18/24 History folic acid 1 mg tablet 1 mg PO DAILY 12/18/24 12/18/24 History gabapentin 100 mg capsule 100 mg PO BID 12/18/24 12/18/24 History hydralazine 10 mg tablet 10 mg PO TID 12/18/24 12/18/24 History isosorbide dinitrate 10 mg tablet 20 mg PO BID 12/18/24 12/18/24 History metoclopramide HCl 10 mg tablet 10 mg PO TIDWMEAL 12/18/24 12/18/24 History sertraline 50 mg tablet 50 mg PO Q24H 12/18/24 12/18/24 History sodium bicarbonate 650 mg tablet 650 mg PO BID 12/18/24 12/18/24 History Allergies Allergy/AdvReac Type Severity Reaction Status Date / Time No Known Allergies Allergy Unknown Verified 12/18/24 17:52 Vital Signs Vital Signs - 24 hr 12/18/24 17:15 12/18/24 17:47 12/18/24 18:09 Temperature 98.0 F Pulse Rate 85 81 Respiratory Rate 20 17 Blood Pressure 157/89 H 178/88 H Pulse Oximetry 98 100 100 Oxygen Delivery Room Air 12/18/24 18:15 12/18/24 18:25 12/18/24 18:30 Temperature Pulse Rate 83 82 Respiratory Rate 17 17 Blood Pressure 188/89 H 204/92 H Pulse Oximetry 97 100 97 Oxygen Delivery 12/18/24 18:31 12/18/24 18:45 12/18/24 18:46 Temperature Pulse Rate 82 Respiratory Rate 16 Blood Pressure 189/86 H Pulse Oximetry 98 98 98 Oxygen Delivery 12/18/24 19:00 12/18/24 19:01 12/18/24 19:15 Temperature Pulse Rate 80 Respiratory Rate 17 Blood Pressure 205/94 H Pulse Oximetry 99 99 99 Oxygen Delivery 12/18/24 19:16 12/18/24 19:28 12/18/24 19:30 Temperature Pulse Rate 87 Respiratory Rate Blood Pressure 207/97 H Pulse Oximetry 99 99 Oxygen Delivery 12/18/24 19:31 12/18/24 19:45 12/18/24 19:46 Temperature Pulse Rate Respiratory Rate Blood Pressure 194/88 H 188/92 H Pulse Oximetry 98 99 99 Oxygen Delivery 12/18/24 20:00 12/18/24 20:01 12/18/24 20:15 Temperature Pulse Rate Respiratory Rate Blood Pressure 192/94 H 203/94 H Pulse Oximetry 100 100 98 Oxygen Delivery 12/18/24 20:16 12/18/24 20:30 12/18/24 20:31 Temperature Pulse Rate Respiratory Rate Blood Pressure 186/103 H Pulse Oximetry 100 94 100 Oxygen Delivery 12/18/24 20:45 12/18/24 20:46 12/18/24 21:00 Temperature Pulse Rate 80 Respiratory Rate 17 Blood Pressure 190/94 H Pulse Oximetry 100 100 99 Oxygen Delivery Room Air 12/18/24 21:30 Temperature 97.4 F L Pulse Rate 79 Respiratory Rate 16 Blood Pressure 149/72 H Pulse Oximetry 99 Oxygen Delivery Room Air Exam Narrative: General: In no acute distress Head: atraumatic, no encephalopathy Eyes: Blind in both eyes ENT: moist mucous membranes, nasal passages clear Neck: supple, no JVD, no adenopathy, trachea midline Cardiac: Normal S1 and S2. Aortic murmur noted. No gallops or friction rubs, peripheral pulses intact. Respiratory: Lungs clear to auscultation, no adventitious lung sounds, currently on room air Gastrointestinal: soft, non-distended, tenderness to mid abdomen, normoactive bowel sounds. Reports nausea, vomiting bile : voiding without difficulty. Extremities: moves all extremities well, no edema Skin: clean, dry, intact. No wounds or lesions. Neuro: Alert and oriented x4, cranial nerves intact, no neuro deficits. Psych: normal mood, normal affect, interactive H&P: Results Labs Labs: Short CBC 12/18/24 12/19/24 Range/Units 18:08 04:22 WBC 8.6 10.7 (4.8-10.8) K/mm3 Hgb 9.9 L 10.0 L (12.0-15.0) g/dL Hct 31.5 L 31.8 L (35.0-49.0) % Plt Count 327 302 (150-420) K/mm3 BMP 12/18/24 12/19/24 18:08 04:22 Sodium 141 145 Potassium 3.6 4.4 Chloride 108 H 109 H Carbon Dioxide 18 L 22 BUN 39 H 35 H Creatinine 3.34 H 3.14 H Glucose 145 H 198 H Calcium 9.2 8.8 Liver Function 12/18/24 12/19/24 Range/Units 18:08 04:22 Total Bilirubin 0.5 0.3 (0.2-1.3) mg/dL AST 21 17 (14-36) U/L ALT 13 18 (6-35) U/L Alkaline Phosphatase 127 H 139 H (38-126) U/L Albumin 4.1 3.5 (3.5-5.1) g/dL Urine 12/18/24 Range/Units 17:47 Urine Color Light yellow (Yellow) Urine Appearance Clear (Clear) Urine pH 5.5 (5.0-8.0) Ur Specific Laurier 1.015 (1.010-1.020) Urine Protein 2+ H (Negative) Urine Glucose (UA) Negative (Negative) Imaging Chest x-ray: Radiologist's impression: CHEST RADIOGRAPH CLINICAL HISTORY: weakness, n/v . COMPARISON: 02/25/2022 TECHNIQUE: Single portable view of the chest. FINDINGS The cardiomediastinal silhouette is unremarkable. The lungs are clear. Redemonstration of a right humeral head fracture, with callus formation. IMPRESSION: No focal infiltrate or effusion. Reviewed, dictated and finalized at location A. Assessment and Plan Assessment and plan (1) Gastroenteritis: Code(s): K52.9 - Noninfective gastroenteritis and colitis, unspecified Status: Acute Assessment and Plan: * Chest x-ray was negative * Will obtain a CT of the chest, abdomen and pelvis today * Patient was given 1 L of normal saline while in the ED and then started on IV fluids * Continue antiemetics and pain medication as needed * Monitor electrolytes (2) Dehydration: Code(s): E86.0 - Dehydration Status: Acute Assessment and Plan: See above plan of care (3) UTI (urinary tract infection): Qualifiers: Hematuria presence: without hematuria Urinary tract infection type: acute cystitis Qualified Code(s): N30.00 - Acute cystitis without hematuria Code(s): N39.0 - Urinary tract infection, site not specified Status: Acute Assessment and Plan: * UA showed 2+ urine protein, 1+ urine blood, 3-5 urine RBC, moderate amorphous sediment, 4+ bacteria * Urine and blood cultures obtained and pending * Patient was given 1 dose of Rocephin while in the ED * We will hold off on any further antibiotics at this time as she is asymptomatic (4) Hyperlipidemia: Code(s): E78.5 - Hyperlipidemia, unspecified Status: Acute Assessment and Plan: * Continue aspirin and atorvastatin (5) Hypertension: Code(s): I10 - Essential (primary) hypertension Status: Acute Assessment and Plan: * Blood pressures ranging 149/72 to 190/94 * Continue amlodipine, Isordil, metoprolol, and hydralazine * Will order hydralazine 10 mg IV q.8 hours for systolic greater than 160 if unable to take her p.o. medications (6) CHF (congestive heart failure): Code(s): I50.9 - Heart failure, unspecified Status: Acute Assessment and Plan: * Will hold Bumex due to dehydration * No echo to review (7) Chronic kidney disease: Code(s): N18.9 - Chronic kidney disease, unspecified Status: Acute Assessment and Plan: * Creatinine 3.14, EGFR 15 * Baseline appears to be 3.0-3.25 * Currently at baseline * Continue to monitor (8) Diabetes mellitus: Qualifiers: Diabetes mellitus complication status: with other specified complication Diabetes mellitus chcf insulin use: unspecified chcf insulin use status Diabetes mellitus type: type 2 Qualified Code(s): E11.69 - Type 2 diabetes mellitus with other specified complication Code(s): E11.9 - Type 2 diabetes mellitus without complications Status: Acute Assessment and Plan: * Blood sugars ranging 118-198 * Will obtain hemoglobin A1c * Accu checks AC/HS * Moderate dose SSI ordered * hypoglycemic protocol in place * Diabetic diet ordered Quality VTE Prophylaxis VTE prophylaxis: mechanical ordered Hospitalist [facility] Advance Care Plan I have confirmed that the patient's Advanced Care Plan is present, code status is documented, or surrogate decision maker is listed in patient medical record.: Yes Medication Reconciliation I have utilized all available resources to obtain, update and review the patients current medications (includes all prescriptions, OTC, herbals, cannabis, and nutritional supplements).: Yes
[2024-12-19 11:44] LABS: Glucose Point of Care 118 mg/dl (65-105)
--- NOTE | 2024-12-19 13:19 | PC.NURSE ---
Patient has small amount of emesis with every sip of water. This nurse advised patient to stop drinking water and to not swallow anything until nausea subsides. Patient has refused all PO medication due to nausea and vomiting.
--- NOTE | 2024-12-19 15:31 | PC.NURSE ---
Director Of Perioperative Services made charge nurse aware that patient is vomiting what appears to be partially digested blood. Patient had a negative CT scan this morning. Will continue to monitor and await further orders.
--- NOTE | 2024-12-19 15:49 | PC.NURSE ---
Programming Intern messaged FOLLOW UP REP about the color and consistency of patient's emesis. Awaiting FOLLOW UP REP response.
[2024-12-19 16:00] VITALS: BP 191/86; PULSE 85; RESP 16; TEMP 35.8; O2SAT 98
[2024-12-19] MEDS: hydrALAZINE HCL 20 MG/ML VIAL 10 MG IV PUSH (16:11)
--- NOTE | 2024-12-19 16:13 | PC.NURSE ---
IV hydralazine administered for BP 191/86.
--- NOTE | 2024-12-19 16:22 | PC.NURSE ---
MONORAIL OPERATOR responded to nurse that she is not concerned with the color of the emesis and that it appears to be billiary to MONORAIL OPERATOR. No further orders.
[2024-12-19 16:54] LABS: Glucose Point of Care 151 mg/dl (65-105)
--- NOTE | 2024-12-19 17:06 | PC.NURSE ---
Affiliate Marketing Manager in room when patient repeatedly stuck her fingers down her throat to force herself to throw up. Affiliate Marketing Manager used pen light to look into patient's throat and found throat to be red and raw. Affiliate Marketing Manager advised patient to get her fingers out of her throat and patient states that she can't help it.
[2024-12-19] MEDS: HALOPERIDOL LACTATE 5 MG/ML VIAL IM (17:54)
[2024-12-19 18:00] VITALS: BP 168/71
--- NOTE | 2024-12-19 18:01 | PC.NURSE ---
Patient's BP down to 168/71 post PRN IV hydralazine administration.
[2024-12-19 20:00] VITALS: BP 140/63; PULSE 103; PULSE 95; RESP 15; TEMP 36.2; O2SAT 97
[2024-12-19 22:01] LABS: Glucose Point of Care 166 mg/dl (65-105)
[2024-12-20] VITALS: BP 147/71; PULSE 90; PULSE 94; RESP 17; TEMP 36.2; O2SAT 96
[2024-12-20 04:00] VITALS: BP 146/77; PULSE 73; PULSE 85; RESP 19; TEMP 36.2; O2SAT 97
--- NOTE | 2024-12-20 05:39 | PC.NURSE ---
Pt has c/o nausea w/no emesis, but this RN discovered vomit on the pt's fingers and bed. Once this RN asked the pt if she had vomited the pt stated aggressively no. This RN attempted to educate the pt that since she is vomiting it is counterintuitive to attempt PO fluids. Pt also educated that she is being hydrated intravenously. Pt removed IV site independently. Bed linens and pt gown changed w/assistance from Delisa Post RN. Call light w/in reach and pt educated on the importance of using the call light compared to yelling for a nurse. The pt verbalized understanding, but needs reinforcement for use.
--- NOTE | 2024-12-20 06:07 | PC.NURSE ---
Pt vomited emesis onto herself and bed. This RN once again asked the pt if she had vomited to which the pt agressively denied again and began to speak a profanity. This RN interjected and communicated to the pt that he will return later due to aggression. Pt immediately said Sorry. RN communicated to the pt understanding of frustration. Call light w/in reach.
--- NOTE | 2024-12-20 06:20 | PC.NURSE ---
Pt putting her fingers down her throat to make herself vomit. When pt was questioned about this behavior, she said she did this because it released' her. I asked her what it released her from and she said she didnt know. Pt tried several times to put her fingers down her throat while staff was in the room. Pt mentioned that she has been putting her fingers down her throat to vomit for many years and said she doesnt know why she does this.
--- NOTE | 2024-12-20 06:49 | PC.NURSE ---
BERNIE Hercules in room with patient and this RN heard her tell patient no. This nurse goes into room to find patient trying to stick her finger down to induce vomiting. This RN asked patient why she was doing that and patient stated she didn't know. This RN asked patient if she does that often and patient stated yes. This RN educated patient on reasons to not to do that. This RN then asked patient how long she has been doing that. Patient answered for a long time. I educated patient that being a behavioral issue. She stated she expected this hospital to fix that issue. This RN educated patient that that wouldn't be a short term fix and would take some psychiatric help in order to stop. Before this RN left the room patient tried to stick her finger down her throat again.
[2024-12-20 08:00] VITALS: BP 190/76; PULSE 93; PULSE 95; RESP 14; TEMP 36.4; O2SAT 98
[2024-12-20 08:04] LABS: Glucose Point of Care 162 mg/dl (65-105)
[2024-12-20] MEDS: ONDANSETRON INJ 4 MG/2 ML VIAL IV PUSH (08:27)
[2024-12-20] MEDS: hydrALAZINE HCL 20 MG/ML VIAL 10 MG IV PUSH (08:52)
[2024-12-20] MEDS: SODIUM CHLORIDE 0.9% IV 1,000 ML 100 ML IV CONT (10:55)
[2024-12-20] MEDS: METOPROLOL SUCCINATE EXT REL 50 MG TABCR PO (11:03)
--- NOTE | 2024-12-20 11:05 | PC.NURSE ---
Pt refuses all po meds. Pt continues to put her hand down her throat to induce vomiting.
[2024-12-20 11:52] LABS: Glucose Point of Care 231 mg/dl (65-105)
[2024-12-20 12:00] VITALS: BP 175/76; PULSE 101; RESP 14; TEMP 36.6; O2SAT 98
[2024-12-20] MEDS: INSULIN HUMAN LISPRO (*BKC) 1,000 UNITS/10 ML VIAL SUB-Q (12:37)
[2024-12-20] MEDS: METOCLOPRAMIDE HCL INJ 10 MG/2 ML VIAL 5 MG IV PUSH ×2 (13:22→17:30)
--- NOTE | 2024-12-20 16:06 | PM.IMPN ---
Subjective Date/time seen: 12/20/24 16:06 Objective Data Vital Signs Vital Signs: Vital Signs - 24 hr 12/19/24 18:00 12/19/24 20:00 12/19/24 20:00 Temperature 36.2 C L Pulse Rate 103 H 95 Respiratory Rate 15 Blood Pressure 168/71 H 140/63 Pulse Oximetry 97 Oxygen Delivery Room Air 12/20/24 00:00 12/20/24 00:00 12/20/24 04:00 Temperature 36.2 C L 36.2 C L Pulse Rate 90 94 85 Respiratory Rate 17 19 Blood Pressure 147/71 H 146/77 H Pulse Oximetry 96 97 Oxygen Delivery Room Air Room Air 12/20/24 04:00 12/20/24 08:00 12/20/24 08:00 Temperature 36.4 C Pulse Rate 73 93 95 Respiratory Rate 14 Blood Pressure 190/76 H Pulse Oximetry 98 Oxygen Delivery Room Air 12/20/24 12:00 12/20/24 12:00 Temperature 36.6 C Pulse Rate 101 H 101 H Respiratory Rate 14 Blood Pressure 175/76 H Pulse Oximetry 98 Oxygen Delivery Room Air Intake/Output Intake/Output: Intake & Output 12/17/24 12/18/24 12/19/24 12/20/24 23:59 23:59 23:59 23:59 Intake Total 1050 2606.7 1000 Output Total 100 50 Balance 950 2606.7 950 Meds/Results Medications: Active Medications Generic Name Dose Route Start Last Admin Trade Name Freq PRN Reason Stop Dose Admin Amlodipine Besylate 10 mg 12/19/24 09:00 12/20/24 11:02 Amlodipine Besylate 5 Mg Tablet PO Not Given DAILY SHELIA Aspirin 81 mg 12/19/24 09:00 12/20/24 11:02 Aspirin 81 Mg Enteric Tablet PO Not Given DAILY SHELIA Atorvastatin Calcium 80 mg 12/19/24 21:00 12/19/24 20:18 Atorvastatin 40 Mg Tablet PO Not Given HS SHELIA Bumetanide 0.5 mg 12/19/24 09:00 12/20/24 08:06 Bumetanide 0.5 Mg Tablet PO Not Given DAILY SHELIA Dextrose 12.5 gm 12/18/24 19:28 Dextrose 50% 25 Gm/50 Ml Syringe IV PUSH PRN PRN Hypoglycemia Protocol Diphenhydramine HCl 25 mg 12/20/24 13:04 Diphenhydramine Hcl Inj 50 Mg/Ml Vial IV PUSH Q4H PRN Extra pyramidal symptoms Famotidine 40 mg 12/19/24 09:00 12/20/24 11:03 Famotidine 20 Mg Tablet PO Not Given BID SHELIA Folic Acid 1 mg 12/19/24 09:00 12/20/24 11:03 Folic Acid 1 Mg Tablet PO Not Given DAILY SHELIA Gabapentin 100 mg 12/19/24 09:00 12/20/24 11:03 Gabapentin 100 Mg Capsule PO Not Given BID SHELIA Glucagon 1 mg 12/18/24 19:28 Glucagon For Inj 1 Mg Vial IM PRN PRN Hypoglycemia Protocol Glucose 15 gm 12/18/24 19:28 Glucose Oral Gel 15 Gm Of Glucse In 37.5 Gm Tube PO PRN PRN Hypoglycemia Protocol Hydralazine HCl 10 mg 12/19/24 13:00 12/20/24 12:26 Hydralazine 10 Mg Tablet PO Not Given TID SHELIA Hydralazine HCl 10 mg 12/19/24 12:10 12/20/24 08:52 Hydralazine Hcl 20 Mg/Ml Vial IV PUSH 10 mg Q8H PRN Administration for SBP >160 Sodium Chloride 1,000 mls @ 100 mls/hr 12/18/24 19:25 12/20/24 10:55 Normal Saline Iv IV CONT 100 mls/hr .Q10H SHELIA Administration Dextrose 1,000 mls @ 100 mls/hr 12/18/24 19:28 Dextrose 5% 1,000 Ml IVPB PRN PRN Hypoglycemia Protocol Insulin Glargine 40 units 12/19/24 09:00 12/20/24 08:08 Insulin Glargine (*Bkc) 1,000 Units/10 Ml Vial SUB-Q Not Given DAILY [facility] Insulin Human Lispro 3 - 6 units 12/19/24 08:00 12/20/24 12:37 Insulin Human Lispro (*Bkc) 1,000 Units/10 Ml Vial SUB-Q 3 units TIDWM [facility] Administration Protocol Isosorbide Dinitrate 20 mg 12/19/24 09:00 12/20/24 11:03 Isosorbide Dinitrate 10 Mg Tablet PO Not Given BID [facility] Metoclopramide HCl 10 mg 12/19/24 08:00 12/20/24 12:26 Metoclopramide Hcl 10 Mg Tablet PO Not Given TIDWM [facility] Metoclopramide HCl 5 mg 12/20/24 13:00 12/20/24 13:22 Metoclopramide Hcl Inj 10 Mg/2 Ml Vial IV PUSH 5 mg Q6HR SHELIA Administration Metoprolol Succinate 50 mg 12/19/24 09:00 12/20/24 11:03 Metoprolol Succinate Ext Rel 50 Mg Tabcr PO 50 mg QAM SHELIA Administration Miscellaneous Information 0 each 12/18/24 23:10 12/20/24 11:01 Darbepoetin- Nonformulary. Hold While Inpatient? XX 01/17/25 23:09 Not Given CLARIFY SHELIA Morphine Sulfate 2 mg 12/18/24 19:23 Morphine Sulfate (*Crx) 2 Mg/Ml Inj IV PUSH Q4H PRN Pain Rated 7-10 Non-Formulary Medication 40 mcg 12/18/24 22:31 Darbepoetin Jaleel-Albumin SUB-Q MONTHLY PRN low hgb Ondansetron HCl 4 mg 12/18/24 19:23 12/20/24 08:27 Ondansetron Inj 4 Mg/2 Ml Vial IV PUSH 4 mg Q6H PRN Administration Nausea And Vomiting Sertraline HCl 50 mg 12/19/24 09:00 12/20/24 11:04 Sertraline Hcl 50 Mg Tablet PO Not Given DAILY [facility] Sodium Bicarbonate 1,300 mg 12/19/24 09:00 12/20/24 11:04 Sodium Bicarbonate Tab 650 Mg Tablet PO Not Given BID [facility] Radiology Results: ITS Impressions Chest X-Ray 12/18/24 18:26 IMPRESSION: No focal infiltrate or effusion. Chest/Abdomen/Pelvis CT 12/19/24 13:10 Impression: No acute abnormality seen. Probable chronic compression fractures of T12 and L5. Small hiatal hernia. Labs Labs: Laboratory Results - last 24 hr 12/19/24 12/19/24 12/20/24 16:50 22:01 07:54 POC Capillary Glucose 151 H 166 H 162 H 12/20/24 11:48 POC Capillary Glucose 231 H
[2024-12-20 16:40] VITALS: BP 177/72; PULSE 86; PULSE 89; RESP 16; TEMP 36.3; O2SAT 96
--- NOTE | 2024-12-20 16:46 | PM.TDS ---
Transfer Discharge Sum: Prov Provider Date of admission: 12/18/24 19:24 Primary care physician: Coni Casper Admitting clinician: Aubrey Carrion MD Discharging clinician: Porfirio Gordon Anticipated date of transfer: 12/20/24 Receiving physician/facility: [facility], Dr. Aubrey Carrion Attending, accepted by MAXI Reyes Dr., GI professional security officer ok with transfer, clear liquids if tolerated DS: Admitting Diagnosis Discharge Date 12/20/24 Admitting Diagnosis Gastroenteritis, dehydration, UTI, hyperlipidemia, HTN, CHF, CKD, Diabetes DS: Discharge Diagnosis Discharge Diagnosis (1) Hematemesis with nausea: Code(s): K92.0 - Hematemesis Status: Acute Assessment and Plan: Hemocult positive, clear liquids ok for now per Dr. Ewing (2) Intractable vomiting with nausea: Code(s): R11.2 - Nausea with vomiting, unspecified Status: Acute Assessment and Plan: Did better this afternoon after IV Reglan ordered, has not been tolerating oral meds/oral Reglan before this. (3) Metabolic acidosis: Code(s): E87.20 - Acidosis, unspecified Status: Acute Assessment and Plan: Borderline elevated anion gap acidosis due to DM and CKD as well as vomiting/bicarbonate loss. HCO3 on VBG this eveing 18.7 (4) Stage 4 chronic kidney disease due to hypertension: Code(s): I12.9 - Hypertensive chronic kidney disease with stage 1 through stage 4 chronic kidney disease, or unspecified chronic kidney disease; N18.4 - Chronic kidney disease, stage 4 (severe) Status: Acute (5) Dehydration: Code(s): E86.0 - Dehydration Status: Acute (6) Hypertension: Code(s): I10 - Essential (primary) hypertension Status: Acute (7) Diabetes mellitus: Qualifiers: Diabetes mellitus complication status: with other specified complication Diabetes mellitus intermodal dispatcher insulin use: unspecified intermodal dispatcher insulin use status Diabetes mellitus type: type 2 Qualified Code(s): E11.69 - Type 2 diabetes mellitus with other specified complication Code(s): E11.9 - Type 2 diabetes mellitus without complications Status: Acute (8) UTI (urinary tract infection): Qualifiers: Hematuria presence: without hematuria Urinary tract infection type: acute cystitis Qualified Code(s): N30.00 - Acute cystitis without hematuria Code(s): N39.0 - Urinary tract infection, site not specified Status: Acute Assessment and Plan: Urine culture just resulted positive for Enterococcus, species and susceptabilities pending. Change abx to Ampicillin 2g one time dose for now, will need renal adjustment for ongoing treatment. (9) Anemia in chronic kidney disease (CKD): Code(s): N18.9 - Chronic kidney disease, unspecified; D63.1 - Anemia in chronic kidney disease Status: Acute (10) CHF (congestive heart failure): Code(s): I50.9 - Heart failure, unspecified Status: Chronic Assessment and Plan: History of CHF, Elevated ProBNP, no dyspnea (11) Hypernatremia: Code(s): E87.0 - Hyperosmolality and hypernatremia Status: Acute Assessment and Plan: Sodium 149 on labs this evening, stop NS infusion and change to LR at 50 mL/hr (12) Hypokalemia: Code(s): E87.6 - Hypokalemia Status: Acute Assessment and Plan: Potassium 3.2 on labs this evening, ordered 20 mEq IV replacement (13) Hypomagnesemia: Code(s): E83.42 - Hypomagnesemia Status: Acute Assessment and Plan: Mag 1.6 on labs this evening, ordered 2g IV replacement Plan Transfer to [facility], with GI and Nephrology available for consult. Clear liquid diet for now. Spoke to Dr. Ewing who wants to continue pantoprazole, likely scope on Sunday. Stop NS infusion due to hypernatremia and hyperchloremia. Change to LR at 50 mL/hr Order IV potassium and magnesium Order IV ampicillin to target Enterococcus in urine pending sensitivities, will need renal dosing adjustment and watch for final culture. Transfer Discharge Sum: Med Medications Active and Home Medications: Home Medications Novolog U-100 Insulin aspart See Rx Instructions .Route .COMPLEX 02/26/22 [History Confirmed 12/18/24] insulin glargine 100 unit/mL subcutaneous cartridge 40 unit subcut DAILY 02/26/22 [History Confirmed 12/18/24] amlodipine 10 mg tablet 10 mg PO DAILY 12/18/24 [History Confirmed 12/18/24] aspirin 81 mg tablet,delayed release (Adult Aspirin Regimen) 81 mg PO DAILY 12/18/24 [History Confirmed 12/18/24] atorvastatin 80 mg tablet (Lipitor) 80 mg PO HS 12/18/24 [History Confirmed 12/18/24] bumetanide 1 mg tablet 1 mg PO DAILY 12/18/24 [History Confirmed 12/18/24] darbepoetin jeffrey-albumin 40 mcg/mL in albumin injection 40 mcg subcut MONTHLY PRN low hgb 12/18/24 [History Confirmed 12/18/24] famotidine 40 mg tablet 40 mg PO BID 12/18/24 [History Confirmed 12/18/24] folic acid 1 mg tablet 1 mg PO DAILY 12/18/24 [History Confirmed 12/18/24] gabapentin 100 mg capsule 100 mg PO BID 12/18/24 [History Confirmed 12/18/24] hydralazine 10 mg tablet 10 mg PO TID 12/18/24 [History Confirmed 12/18/24] isosorbide dinitrate 10 mg tablet 20 mg PO BID 12/18/24 [History Confirmed 12/18/24] metoclopramide HCl 10 mg tablet 10 mg PO TIDWMEAL 12/18/24 [History Confirmed 12/18/24] sertraline 50 mg tablet 50 mg PO Q24H 12/18/24 [History Confirmed 12/18/24] sodium bicarbonate 650 mg tablet 650 mg PO BID 12/18/24 [History Confirmed 12/18/24] Active Medications Amlodipine Besylate (Amlodipine Besylate 5 Mg Tablet) 10 mg PO DAILY [facility] Last Admin: 12/20/24 11:02 Dose: Not Given Aspirin (Aspirin 81 Mg Enteric Tablet) 81 mg PO DAILY [facility] Last Admin: 12/20/24 11:02 Dose: Not Given Atorvastatin Calcium (Atorvastatin 40 Mg Tablet) 80 mg PO [facility] Last Admin: 12/19/24 20:18 Dose: Not Given Bumetanide (Bumetanide 0.5 Mg Tablet) 0.5 mg PO DAILY [facility] Last Admin: 12/20/24 08:06 Dose: Not Given Dextrose (Dextrose 50% 25 Gm/50 Ml Syringe) 12.5 gm IV PUSH PRN PRN; Protocol PRN Reason: Hypoglycemia Diphenhydramine HCl (Diphenhydramine Hcl Inj 50 Mg/Ml Vial) 25 mg IV PUSH Q4H PRN PRN Reason: Extra pyramidal symptoms Famotidine (Famotidine 20 Mg Tablet) 40 mg PO BID [facility] Last Admin: 12/20/24 11:03 Dose: Not Given Folic Acid (Folic Acid 1 Mg Tablet) 1 mg PO DAILY [facility] Last Admin: 12/20/24 11:03 Dose: Not Given Gabapentin (Gabapentin 100 Mg Capsule) 100 mg PO BID [facility] Last Admin: 12/20/24 11:03 Dose: Not Given Glucagon (Glucagon For Inj 1 Mg Vial) 1 mg IM PRN PRN; Protocol PRN Reason: Hypoglycemia Glucose (Glucose Oral Gel 15 Gm Of Glucse In 37.5 Gm Tube) 15 gm PO PRN PRN; Protocol PRN Reason: Hypoglycemia Hydralazine HCl (Hydralazine 10 Mg Tablet) 10 mg PO TID [facility] Last Admin: 12/20/24 12:26 Dose: Not Given Hydralazine HCl (Hydralazine Hcl 20 Mg/Ml Vial) 10 mg IV PUSH Q8H PRN PRN Reason: for SBP >160 Last Admin: 12/20/24 08:52 Dose: 10 mg Sodium Chloride (Normal Saline Iv) 1,000 mls @ 100 mls/hr IV CONT .Q10H [facility] Last Admin: 12/20/24 10:55 Dose: 100 mls/hr Dextrose (Dextrose 5% 1,000 Ml) 1,000 mls @ 100 mls/hr IVPB PRN PRN; Protocol PRN Reason: Hypoglycemia Insulin Glargine (Insulin Glargine (*Bkc) 1,000 Units/10 Ml Vial) 40 units SUB-Q DAILY [facility] Last Admin: 12/20/24 08:08 Dose: Not Given Insulin Human Lispro (Insulin Human Lispro (*Bkc) 1,000 Units/10 Ml Vial) 3 - 6 units SUB-Q TIDWM [facility]; Protocol Last Admin: 12/20/24 12:37 Dose: 3 units Isosorbide Dinitrate (Isosorbide Dinitrate 10 Mg Tablet) 20 mg PO BID [facility] Last Admin: 12/20/24 11:03 Dose: Not Given Metoclopramide HCl (Metoclopramide Hcl 10 Mg Tablet) 10 mg PO TIDWM [facility] Last Admin: 12/20/24 12:26 Dose: Not Given Metoclopramide HCl (Metoclopramide Hcl Inj 10 Mg/2 Ml Vial) 5 mg IV PUSH Q6HR [facility] Last Admin: 12/20/24 13:22 Dose: 5 mg Metoprolol Succinate (Metoprolol Succinate Ext Rel 50 Mg Tabcr) 50 mg PO QAM [facility] Last Admin: 12/20/24 11:03 Dose: 50 mg Miscellaneous Information (Darbepoetin- Nonformulary. Hold While Inpatient?) 0 each XX CLARIFY [facility] Stop: 01/17/25 23:09 Last Admin: 12/20/24 11:01 Dose: Not Given Morphine Sulfate (Morphine Sulfate (*Crx) 2 Mg/Ml Inj) 2 mg IV PUSH Q4H PRN PRN Reason: Pain Rated 7-10 Non-Formulary Medication (Darbepoetin Jeffrey-Albumin) 40 mcg SUB-Q MONTHLY PRN PRN Reason: low hgb Ondansetron HCl (Ondansetron Inj 4 Mg/2 Ml Vial) 4 mg IV PUSH Q6H PRN PRN Reason: Nausea And Vomiting Last Admin: 12/20/24 08:27 Dose: 4 mg Sertraline HCl (Sertraline Hcl 50 Mg Tablet) 50 mg PO DAILY [facility] Last Admin: 12/20/24 11:04 Dose: Not Given Sodium Bicarbonate (Sodium Bicarbonate Tab 650 Mg Tablet) 1,300 mg PO BID [facility] Last Admin: 12/20/24 11:04 Dose: Not Given Transfer Discharge Sum: Hosp Hospital Course Hospital course: Deanna Partida is a 59 year old female admitted for nausea, vomiting, diarrhea and abdominal pain ongoing for 4 days. She has continued to have intense nausea with intractable vomiting. She has history of Stage 4-5 CKD and chronic anemia related to CKD, HTN, Diabetes, CHF on Bumex daily. Patient has not been able to tolerate oral medications, food or fluids since admission. She has been seen sticking her fingers down her throat to induce vomiting. Patient reports pain in throat, no history of vomiting blood per patient report. Unsure on ETOH/cannabis use as patient did not answer these questions. She has not had relief with IV Zofran. She did receive a one time dose of IM Haldol which just caused her to sleep but when she woke up she was still nauseated/vomiting. Ordered IV Reglan since patient is prescribed PO Reglan at home but not tolerating PO intake. She has had one episode of emesis since getting first dose of Reglan IV. Ordered STAT labs given black emesis that was consistent with hematemesis. Hemoglobin decreased from 10 yesterday morning to 8.6 this evening. Protonix 80 mg IV push given. Labs returned with multiple abnormalities and urine culture growing Enterococcus with bump in WBC. Ordered ampicillin, LR instead of saline, potassium and magnesium replacements. Spoke to ROMEO Castrejon professional security officer, who agreed to see patient in consult tomorrow, plan to scope on Sunday. Spoke to MAXI Reyes who accepted transfer to [place]. Time Spent with Patient Time attestation: Total time spent providing and/or coordinating transfer services: 180 minutes (extended care time spent) Total critical care time: Approximately?45?minutes Due to a high probability of clinically significant, life threatening deterioration, the patient required my highest level of preparedness to intervene emergently and I personally spent this critical care time directly and personally managing the patient. This critical care time included obtaining a history; examining the patient; pulse oximetry; ordering and review of studies; arranging urgent treatment with development of a management plan; evaluation of patient's response to treatment; frequent reassessment; and, discussions with other providers. This critical care time was performed to assess and manage the high probability of imminent, life-threatening deterioration that could result in multi-organ failure. It was exclusive of separately billable procedures and treating other patients and teaching time. Total time spent: Greater than 30 minutes (Attempting to transfer to [place] but they did not answer first several times then wanted full chart faxed. Did not hear back so we arranged transfer to [facility] where patient will be able to see GI and Nephrology if requested by Hospitalist service.) Exam Narrative: General: Chronically ill appearing, dried emesis on face/neck. Patient is blind. Head: atraumatic Eyes: Blind in both eyes ENT: Dry appearing mucous membranes with dark brown dried emesis. Neck: supple, no JVD, no adenopathy, trachea midline Cardiac: Regular rate and rhythm. Respiratory: clear to auscultation, no signs of fluid overload Gastrointestinal: Soft, non-distended, non-tender to palpation Extremities: Right BKA, no major swelling Neuro: Awake and alert, moves all extremities DS: Data Data Completed and Pending Labs on day of discharge: Labs from last 24 hours 12/20/24 12/20/24 12/19/24 11:48 07:54 22:01 POC Capillary Glucose 231 H 162 H 166 H 12/19/24 16:50 POC Capillary Glucose 151 H Preliminary micro results at discharge 12/18/24 18:55 Blood Culture - Preliminary Blood 12/18/24 18:07 Blood Culture - Preliminary Blood 12/20/24 16:00-19:59 Hematology WBC (4.8-10.8?K/mm3) RBC (4.20-5.40?M/mm3) Hgb (12.0-15.0?g/dL) Hct (35.0-49.0?%) MCV (78.0-102.0?fL) MCH (27.0-31.0?pg) MCHC (32-36?g/dL) RDW (11.6-14.4?%) Plt Count (150-420?K/mm3) MPV (9.2-11.8?fl) Immature Gran % (Auto) (0.0-0.0?%) Neut % (Auto) (50.0-70.0?%) Lymph % (Auto) (18.0-42.0?%) [place] % (Auto) (2.0-11.0?%) Eos % (Auto) (1.0-6.0?%) Baso % (Auto) (0.0-1.0?%) Lymph # (Auto) (1.10-4.50?K/mm3) [place] # (Auto) (0.10-0.90?K/mm3) Eos # (Auto) (0.02-0.50?K/mm3) Baso # (Auto) (0.00-0.10?K/mm3) Abs Immat Gran (auto) (0.00-0.00?K/mm3) Absolute Neuts (auto) (1.70-7.20?K/mm3) Absolute Nucleated RBC (0.00-0.00?K/mm3) Nucleated RBC % (0-0.0?%) % Immature Plt Fraction 13.1?H 2.96?L 8.6?L 27.1?L 91.6 29.1 31.7?L 14.4 253 10.6 0.5?H 83.7?H 10.5?L 5.0 0.0?L 0.3 1.38 0.66 0.00?L 0.04 0.07?H 10.95?H 0.00 0.0 Coagulation D-Dimer Blood Gas VBG pH (7.33-7.43) VBG pCO2 (42.0-48.0?mmHg) VBG pO2 (35.0-45.0?mmHg) VBG HCO3 (24.0-30.0?mEq/l) O2 Delivery Device O2 Liters/Min 7.41 30.2?L*?? 74.2?H 18.7?L Pending Pending Chemistry Sodium (136-145?mmol/L) Potassium (3.5-5.1?mmol/L) Chloride (98-108?mmol/L) Carbon Dioxide (21-32?mmol/L) Anion Gap (4-12?mmol/L) BUN (7-18?mg/dL) Creatinine (0.55-1.02?mg/dL) Estim Creat Clear Calc Estimated GFR (59-) Glucose (70-99?mg/dL) POC Capillary Glucose (65-105?mg/dl) Calculated Osmolality (285-295?mOsm/kg) Lactic Acid Calcium (8.5-10.1?mg/dL) Phosphorus (2.6-4.7?mg/dL) Magnesium (1.8-2.4?mg/dL) Ferritin Total Bilirubin AST ALT Alkaline Phosphatase C-Reactive Protein NT-Pro-B Natriuret Pep (0-125?pg/mL) Total Protein Albumin (3.4-5.0?g/dL) 162?H 231?H 149?H 3.2?L 116?H 22 11 32?H 3.03?H Not Reportable 16?L?? 79 70 313?H 8.2?L 3.1 1.6?L 99660?H 3.0?L Urines Urine Color Urine Appearance Urine pH Ur Specific [place] Urine Protein Urine Glucose (UA) Urine Ketones Ur Blood (Man) Urine Nitrate Urine Bilirubin Urine Urobilinogen Leukocyte Esterase Rfl Urine RBC Urine WBC Ur Squamous Epith Cells Amorphous Sediment Urine Bacteria Urine Mucus Other Body Source Gastric Fluid pH (1-8) Gastric Occult Blood 4 Positive?H Serology Influenza A (RT-PCR) Influenza B (RT-PCR) RSV (RT-PCR) SARS-CoV-2 RNA (RT-PCR) [facility] [address] [place] [address] [employer] Consultant: Dr. Alyce Lyon Clinical Laboratory Report Patient: Deanna Partida Acct: [id number] : 1965 Age/Sex: 59 /F Loc: [facility] Reg Date: 12/18/[address]: Delisa Lopez SOLE TACKER Status: ADM MATILDA Dis Date: Copy To: Aubrey Carrion MD ~ Spec: [id number] Franca: 12/19/24-1638 Recd: 12/19/24 Status: RES Source: UR\USPU Queries: Source for Urine Culture Urine Catheterized Procedure Result Verified Site Urine Culture Preliminary 12/20/24-1802 Q Organism 1 Enterococcus species SOURCE: URINE CATH STATUS: PRELIMINARY ISOLATE 1: Greater than 100,000 CFU/mL of Enterococcus species , susceptibility test report to follow. NOTE: THIS RESULT IS FLAGGED ABNORMAL THIS TEST WAS PERFORMED AT: [id number] [id number] KIRTI FORDE MD
[2024-12-20 17:16] LABS: Glucose Point of Care 70 mg/dl (65-105)
[2024-12-20 17:24] LABS: Basophils Absolute Auto 0.04 K/mm3 (0.00-0.10); Basophils Percent Auto 0.3 % (0.0-1.0); HCO3 VBG 18.7 mEq/l (24.0-30.0); Hematocrit 27.1 % (35.0-49.0); Hemoglobin 8.6 g/dL (12.0-15.0); Immature Granulocyte Absolute 0.07 K/mm3 (0.00-0.00); Immature Granulocyte Percent A 0.5 % (0.0-0.0); Lymphocytes Absolute Auto 1.38 K/mm3 (1.10-4.50); Lymphocytes Percent Auto 10.5 % (18.0-42.0); Mean Corpuscular HGB Conc 31.7 g/dL (32-36); Mean Corpuscular Hemoglobin 29.1 pg (27.0-31.0); Mean Corpuscular Volume 91.6 fL (78.0-102.0); Mean Platelet Volume 10.6 fl (9.2-11.8); Monocytes Absolute Auto 0.66 K/mm3 (0.10-0.90); Neutrophils Absolute Auto 10.95 K/mm3 (1.70-7.20); Neutrophils Percent Auto 83.7 % (50.0-70.0); PO2 VBG 74.2 mmHg (35.0-45.0); Platelet Count Result 253 K/mm3 (150-420); Red Blood Count 2.96 M/mm3 (4.20-5.40); Red Cell Distribution Width 14.4 % (11.6-14.4); White Blood Count 13.1 K/mm3 (4.8-10.8); pH VBG 7.41 (7.33-7.43)
[2024-12-20] MEDS: PANTOPRAZOLE SODIUM IV 40 MG VIAL 80 MG IV PUSH (17:30)
[2024-12-20 17:59] LABS: Anion Gap 11 mmol/L (4-12); Blood Urea Nitrogen 32 mg/dL (7-18); Calcium 8.2 mg/dL (8.5-10.1); Carbon Dioxide 22 mmol/L (21-32); Chloride 116 mmol/L (98-108); Estimated Glomerular Filt Rate 16; Glucose 79 mg/dL (70-99); Magnesium 1.6 mg/dL (1.8-2.4); NT Pro B Type Natriuretic Pept 24013 pg/mL (0-125); Osmolality Calculated 313 mOsm/kg (285-295); Phosphorus 3.1 mg/dL (2.6-4.7); Potassium 3.2 mmol/L (3.5-5.1); Sodium 149 mmol/L (136-145)
[2024-12-20 18:01] LABS: PCO2 VBG 30.2 mmHg (42.0-48.0)
[2024-12-20 18:03] LABS: Gastric Negative Control Negative; Gastric Positive Control Positive; Occult Blood Gastric Fluid Positive; pH Gastric Fluid 4 (1-8)
[2024-12-20 18:34] LABS: Device ROOM AIR
[2024-12-20] MEDS: LACTATED RINGERS 1,000 ML 50 ML IV CONT (18:44)
[2024-12-20] MEDS: AMPICILLIN 2 GM/NS 100 ML 2 GM/100 ML BAG IVPB (18:46)
--- NOTE | 2024-12-20 19:17 | PC.NURSE ---
Hu Partida, spouse
--- NOTE | 2024-12-20 19:18 | PC.NURSE ---
Hu Partida, spouse, notified of patient's transfer to [facility]. Verbal consent received for transfer.
[2024-12-20 20:00] VITALS: PULSE 87; PULSE 95; RESP 19; TEMP 36.2
--- NOTE | 2024-12-20 20:07 | PC.NURSE ---
Report given to Mady Dumont at 1950. Pt is to go to room 340, pt's is aware.
[2024-12-20] MEDS: MAGNESIUM SULF 2 GM/WATER 50ML 2 GM/50 ML BAG IVPB (20:18)
[2024-12-20] MEDS: KCL 20 MEQ/SW 100 ML 100 ML 50 MEQ IVPB (20:22)
--- NOTE | 2024-12-20 20:28 | PC.NURSE ---
[facility] has arrived. Pt transferred to EMS stretcher w/personal items including pt's phone and ID's. Pt has no c/o pain and ready for transfer.
--- NOTE | 2024-12-22 09:35 | PC.NURSE ---
No discharge call back completed, transfered to [facility].
== END 2024-12-20 20:30 | disposition short-term general hospital (02) ==
LOC: CHSED 19:23 → CHS2ND 20:29
PROVIDERS: Nurse Practitioner; Admitting Provider Internal Medicine; Emergency Provider Emergency Medicine; Visit Provider Internal Medicine
DX: K92.0 Hematemesis (principal); E86.0 Dehydration; E87.0 Hyperosmolality and hypernatremia; E87.6 Hypokalemia; E83.42 Hypomagnesemia; N30.00 Acute cystitis without hematuria; B95.2 Enterococcus as the cause of diseases classified elsewhere; E11.22 Type 2 diabetes mellitus with diabetic chronic kidney disease; I13.0 Hypertensive heart and chronic kidney disease with heart failure and stage 1 through stage 4 chronic kidney disease, or unspecified chronic kidney disease; N18.4 Chronic kidney disease, stage 4 (severe); I50.9 Heart failure, unspecified; D63.1 Anemia in chronic kidney disease; E87.20 Acidosis, unspecified; E78.5 Hyperlipidemia, unspecified; G25.2 Other specified forms of tremor; Z20.822 Contact with and (suspected) exposure to COVID-19; Z79.4 Long term (current) use of insulin; Z79.82 Long term (current) use of aspirin; Z79.899 Other long term (current) drug therapy
CPT/HCPCS: 36415; 71045; 71250; 74176; 80053; 80069; 81001; 82271; 82803; 82948; 83605; 83735; 83880; 83986; 85025; 87040; 87086; 87181; 87637; 93005; 96361; 96365; 96367; 96372; 96374; 96375; 96376; 99285; A9270; G0378; J0290; J0360; J0696; J1630; J1815; J2405; J2470; J2765; J3475; J3480; J7030; J7120

== ENCOUNTER 2024-12-20 21:49 | Inpatient (IN) | payer MEDICARE, OTHER, MEDICAID, SELFPAY ==
--- NOTE | ~2024-12-20 | US_ITS ---
EXAM: ABDOMEN ULTRASOUND HISTORY: Elevated liver enzymes COMPARISON: Reference is made to a CT examination of the chest abdomen and pelvis dated 12/19/2024. FINDINGS: LIVER: The liver is increased in echogenicity and unremarkable in size. The portal vein is patent, demonstrating hepatopedal flow. GALLBLADDER: No stones are identified within the gallbladder, which is otherwise unremarkable. No gallbladder wall thickening or pericholecystic fluid. BILE DUCTS: Common bile duct measures 4.4mm. PANCREAS: Limited evaluation of the pancreas secondary to overlying bowel gas IMPRESSION: Fatty infiltration of the liver, which is otherwise unremarkable. Reviewed, dictated and finalized at location A.
--- NOTE | 2024-12-20 21:26 | PC.NURSE ---
Patient, Deanna Partida, arrived to unit Rm 340 via stretcher accompanied by EMS at 2126. The patient is AAOx4. She is on room air and denies shortness of breath or chest pain. She does not have any personal belongings in her possession. Patient denies any other pain during this time. She also denies any complaints or concerns. Patient was placed in bed and her call light is within reach. Patient was instructed to use her call light for staff assistance. She agreed to use her call light for assistance. Bed alarm is now activated.
--- OUTSIDE RECORDS SUMMARY | 2024-12-20 21:47 | XMS_ITS | Encounter Summary ---
Author Organization [facility] Address [address] [place] [address] Care Team Providers Care Eyelet Cutter Name Role Phone Destinee Rodriguez NP Primary Care Provider [phone] Encounter Details Date Type Department Care Team (Late st Contact Info) Description 09/17/2023 Hospital Follow-up Call [facility] Unit [address] [place] [address] Xiomara Schmitt RN Social History Tobacco Use Types Packs/Day Years Used Date Smoking Tobacco: Never Smokeless Tobacco: Never [facility] Utilities Answer Date Recorded In the past [...] place to sleep or slept in a snf (including now)? No 09/08/2023 Comments Unknown Sex and Gender Information Value Date Recorded Sex Assigned at Female 10/22/2024 9:59 PM NET SOLUTIONS ARCHITECT Legal Sex Female 9:54 PM NET SOLUTIONS ARCHITECT Gender Identity Not on file Sexual Orientation [...] Assessment Author Status No 09/08/2023 3:58 AM NET SOLUTIONS ARCHITECT Ever Yancey RN Active documented as of this encounter Mental Status * Because of a physical, mental, or emotional condition, do you have serious difficulty concentrating, remembering, or making decisions? Answer Entry Date Author Status No 09/08/2023 3:58 AM NET SOLUTIONS ARCHITECT Ever Yancey RN Active documented in this [...] Rule Out 10/22/2024 10/22/2024 10/22/2024 10:40 PM NET SOLUTIONS ARCHITECT Respiratory Rule-Out 10/22/2024 10/22/2024 025 10:41 PM NET SOLUTIONS ARCHITECT documented as of this encounter Care Teams Eyelet Cutter Relationship Specialty Start Date End Date Destinee Rodriguez, REKHA PCP - General NURSE PRACTITIONER 09/08/23 documented as of this encounter
--- OUTSIDE RECORDS SUMMARY | 2024-12-20 21:47 | XMS_ITS | Encounter Summary ---
Author Organization [facility] Address [address] [place] [address] Care Team Providers Care Nut Threader Name Role Phone None, Provider MD Primary Care Provider Jyothi treviño Non-Staff, Provider Primary Care Provider Luis Manuel Osborne MD Primary Care Provider [phone] Destinee Rodriguez NP Primary Care Provider [phone] Reason for Referral * Surgical (Routine) - Closed Specialty Diagnoses / Procedures Referred By Ashlie t Referred To Contact Diagnoses Osteomyelitis Procedures Case request operating room: BONE BIOPSY-FOOT Jaxon August MD [facility] [address] [place] [address] Phone: tel: fax: [facility] [place] [address] Phone: tel: Referral ID Status Reason Start Date Expiration Date Visits Re quested Visits Authorized [id number] Closed 03/09/2022 04/06/2023 1 1 Encounter Details Date Type Department Care Team (Late st Contact Info) Description 03/06/2022 Prep for Procedure [facility] [address] [place], [place] [id number] Jaxon August MD [facility] [place] [address] Social History Tobacco Use Types Packs/Day Years Used Date Smoking Tobacco: Never Smokeless Tobacco: Never Comments Unknown Sex and Gender Information Value Date Recorded Sex Assigned at Female 10/22/2024 9:59 PM HEALTH SANITARIAN Legal Sex Female 9:54 PM HEALTH SANITARIAN Gender Identity Not on file Sexual Orientation [...] AM CDT Gómez Martin RN Active * [place] Suicide Severity Rating Scale (Screener/Recent Self-Report) Question [...] Rule Out 10/22/2024 10/22/2024 10/22/2024 10:40 PM HEALTH SANITARIAN Respiratory Rule-Out 10/22/2024 10/22/2024 025 10:41 PM HEALTH SANITARIAN documented as of this encounter Care Teams Nut Threader Relationship Specialty Start Date End Date None, Provider, PCP - General 08/20/21 06/01/22 Non-Staff, Provider PCP - General UNKNOWN PHYSICIAN SPECIALTY 06/02/22 05/07/23 Luis Manuel Mccall MD [facility] [place] [address] PCP - General FAMILY PRACTICE 05/08/23 09/07/23 Destinee Rodriguez NP [facility] [place] [address] PCP - General NURSE PRACTITIONER 09/08/23 documented as of this encounter
--- OUTSIDE RECORDS SUMMARY | 2024-12-20 21:47 | XMS_ITS | Clinical Summary ---
Author Organization [facility] Address [address] [place] [address] Care Team Providers Care Tree Doctor Name Role Phone Destinee Rodriguez NP Primary Care Provider [phone] Allergies No known active allergies Medications amLODIPine [...] heart failure with left ventricular diastolic dysfunction ([facility] HHS/HCC),Hypoxic respiratory failure ([facility] HHS/HCC) 1 Device by Nasal route continuous. Nasal Cannula. 2L continuous oxygen. Portable tank and stationary concentrator 1 Device 4 Active OXYGEN CONCENTRATOR SUPPLY, DME,Indications: Congestive heart failure with left ventricular diastolic dysfunction (CMS/HCC HHS/HCC),Hypoxic respiratory failure (CMS/[facility] HHS/HCC) 1 Device by Nasal [...] failure wit h left ventricular diastolic dysfunction ([facility] HHS/HCC) 09/13/2023 Hypoxic respiratory failure ([facility] HHS/HCC) Fracture of femoral neck, right ([facility] ) 05/04/2023 Osteomyelitis ([facility]) 02/26/2022 Encounters Date Type Department Care Team Description 10/27/2024 Hospital Follow-up Call [facility] [address] [place] [address] Emily Haywood RN Hospital Follow Up (10/22/2024 - 10/24/2024 (2 days)/[facility]///) 10/22/2024 9:51 PM APRICOT PACKER - 10/24/2024 5:06 PM APRICOT PACKER Hospital Encounter [facility] [address] [place] [address] Sridevi Eugene DO Sahi, Robinder S, MD [place], [...] drink = 0.6 oz pur e alcohol) [facility] Utilities Answer Date Recorded In the past 12 months has [facility] [employer], gas, oil, or water [employer] threatened to shut off services in your [...] place to sleep or slept in a retirement (including now)? No 09/08/2023 Housing Stability Vital [...] any time in the past 12 m [employer], were you homeless or living in a retirement (including now)? Patient declined 10/23/2024 Comments No Sex and Gender Information Value Date Recorded Sex Assigned at Female 10/22/2024 9:59 PM APRICOT PACKER Legal Sex Female 9:54 PM APRICOT PACKER Gender Identity Not on file Sexual Orientation Not on file Last Filed Vital Signs Vital Sign Reading Time Taken Comments Blood Pressure 107/54 10/24/2024 8:00 AM APRICOT PACKER Pulse 77 10/24/2024 8:00 AM APRICOT PACKER Temperature 36 C (96.8 F) 10/24/2024 8:00 AM APRICOT PACKER Respiratory Rate 16 10/24/2024 8:00 AM APRICOT PACKER Oxygen Saturation 100% 10/24/2024 8:00 AM APRICOT PACKER Inhaled Oxygen Concentration - - Weight 49.4 kg (109 lb) 10/23/2024 12:00 PM APRICOT PACKER Height 149.9 cm (4' 11 ) 10/23/2024 12:00 PM APRICOT PACKER Body Mass Index 22.02 10/23/2024 12:00 PM APRICOT PACKER Plan of Treatment Health Maintenance Due Date [...] Colón, BERNIE Medical Devices Implanted Type Area Quality Project Manager Device Identifier Shelf Expiration Date Model / Serial / Lot Cement Bone Biomet 40gm - [id number] Implanted:Qty: 2 on 05/05/2023 by Idris Almanza MD at [facility] Cement Implant Right: Hip [employer] 08/19/2025 [id number] / / Plug Cement Kvng Gabriel Medullary 20mm - [id number] Implanted:Qty: 1 on 05/05/2023 by Idris Almanza MD at [facility] Cement Implant Right: Hip [employer] 01/11/2027 [id number] / / Shell Kvng Bipolar 41mm Od - [id number] Implanted:Qty: 1 on 05/05/2023 by Idris Almanza MD at [facility] Hip Components Right: Hip [employer] 12/17/2025 [id number] / / Liner Kvng Bipolar Hip 22 Id 40/41mm - [id number] Implanted:Qty: 1 on 05/05/2023 by Idris Almanza MD at [facility] Hip Components Right: Hip [employer] 08/19/2025 [id number] / / [id number] Implanted:Qty: 1 on 05/05/2023 by Idris Almanza MD at [facility] Right: Hip [employer] 08/25/2027 [id number] / / Femoral Head Implanted:Qty: 1 on 05/05/2023 by Idris Almanza MD at [facility] Right: Hip [employer] 09/15/2031 [id number] / / Explanted Type Area Quality Project Manager Device Identifier Shelf Expiration Date Model / Serial / Lot System Bone Cement 1 2 Mix - [id number] Explanted:Qty: 1 on 05/05/2023 by Idris Almanza MD at [facility] Cement Implant Right: Hip [employer] 12/21/2025 [id number] / / Femoral Cement Preparation Kit Explanted:Qty: 1 on 05/05/2023 by Idris Almanza MD at [facility] Right: Hip [employer] 11/25/2027 [id number] / / Procedures Procedure Name Priority Date/Time Associated Diagnosis Comments PHOSPHORUS, INORGANIC PHOSPHATE Routine 10/24/2024 5:35 AM APRICOT PACKER MAGNESIUM Routine 10/24/2024 5:35 AM APRICOT PACKER COMPREHENSIVE METABOLIC PANEL Routine 10/24/2024 5:35 AM APRICOT PACKER CBC W/DIFF AUTOMATED Routine 10/24/2024 5:35 AM APRICOT PACKER POCT GLUCOSE - GUNN DOCKED DEVICE Routine 10/23/2024 8:53 AM APRICOT PACKER PHOSPHORUS, INORGANIC PHOSPHATE Routine 10/23/2024 8:19 AM APRICOT PACKER MAGNESIUM Routine 10/23/2024 8:19 AM APRICOT PACKER CBC W/DIFF AUTOMATED STAT 10/23/2024 8:[address] ABD+PEL WO CON STAT 10/23/2024 12: 08 AM APRICOT PACKER XR CHEST PORTABLE STAT 10/22/2024 11: 17 PM APRICOT PACKER ECG 12-LEAD Routine 10/22/2024 10:25 PM APRICOT PACKER LACTIC ACID W REFLEX (SEPSIS) STAT 10/22/2024 10:25 PM APRICOT PACKER THYROID STIM HORMONE TSH STAT 10/22/2024 10:25 PM APRICOT PACKER SALICYLATE STAT 10/22/2024 10:25 PM APRICOT PACKER ACETAMINOPHEN STAT 10/22/2024 10:25 PM APRICOT PACKER ETHANOL STAT 10/22/2024 10:25 PM APRICOT PACKER MAGNESIUM STAT 10/22/2024 10:25 PM APRICOT PACKER LIPASE STAT 10/22/2024 10:25 PM APRICOT PACKER TROPONIN, QUANT STAT 10/22/2024 10:25 PM APRICOT PACKER COMPREHENSIVE METABOLIC PANEL STAT 10/22/2024 10:25 PM APRICOT PACKER CBC W/DIFF AUTOMATED STAT 10/22/2024 10:25 PM APRICOT PACKER INFLUENZA A & B STAT 10/22/2024 10:00 PM APRICOT PACKER CORONAVIRUS (COVID-19) ANTIGEN STAT 10/22/2024 10:00 PM APRICOT PACKER DRUG SCREEN RAPID STAT 10/22/2024 10: 00 PM APRICOT PACKER HC URINALYSIS AUTO W/MICRO STAT 10/22/2024 10:00 PM APRICOT PACKER from Last 3 Months Results * (ABNORMAL) COMPREHENSIVE METABOLIC PANEL (10/24/2024 5:35 AM APRICOT PACKER) Only the most recent of2 resultswithin the time period is included. SODIUM S/P/B 140 136 - 145 MMOL/L 10/24/2024 6:23 AM [facility] POTASSIUM S/P/B 3.8 3.5 - 5.1 MMOL/L 10/24/2024 6:23 AM [facility] Comment:SLIGHT HEMOLYSIS, RE SULT MAY BE AFFECTED. CHLORIDE S/P/B 106 98 - 107 MMOL/L 10/24/2024 6:23 AM [facility] CO2 24.4 21.0 - 32.0 MMOL/L 10/24/2024 6:23 AM [facility] GLUCOSE 107(H) 70 - 99 MG/DL 10/24/2024 6:23 AM [facility] Comment: FASTING GLUCOSE 100 TO 125 MG/DL IS CONSISTENT WITH IMPAIRED FASTING GLUCOSE. FASTING GLUCOSE >125 MG/DL IS CONSISTENT WITH DIABETES. RANDOM GLUCOSE >200 MG/DL WITH HYPERGLYCEMIC SYMPTOMS IS CONSISTENT WITH DIABETES. PER ADA GUIDELINES BUN 36(H) 6 - 24 MG/DL 10/24/2024 6:23 AM [facility] CREATININE S/P/B 3.61(H) 0.55 - 1.02 MG/DL 10/24/2024 6:23 AM [facility] CALCIUM S/P/B 8.0(L) 8.4 - 10.5 MG/DL 10/24/2024 6:23 AM [facility] BILIRUBIN TOTAL S/P/B 0.2 0.2 - 1.0 MG/DL 10/24/2024 6:23 AM [facility] Comment: THIS ASSAY IS NOT RECOMMENDED FOR PATIENTS UNDERGOING TREATMENT WITH ELTROMBOPAG DUE TO THE POTENTIAL FOR FALSELY ELEVATED RESULTS. ALKALINE PHOSPHATASE S/P/B 103 50 - 130 U/L 10/24/2024 6:23 AM [facility] AST 17 15 - 37 U/L 10/24/2024 6:23 AM [facility] ALT 13(L) 14 - 59 U/L 10/24/2024 6:23 AM [facility] TOTAL PROTEIN S/P/B 6.4 6.4 - 8.2 G/DL 10/24/2024 6:23 AM [facility] ALBUMIN S/P/B 2.6(L) 3.4 - 5.0 G/DL 10/24/2024 6:23 AM [facility] ANION GAP 9.6 5.0 - 15.0 MMOL/L 10/24/2024 6:23 AM [facility] OSMOLALITY (CALC) 299 MOSM/KG 025 6:23 AM [facility] Comment:REFERENCE RANGE NOT ESTABLISHED GFR ESTIMATE 14(L) >89 ML/MIN/1. 73 M2 10/24/2024 6:23 AM [facility] GFR NOTES GFR REFERENCE S: 10/24/2024 6:23 AM [facility] Comment: THE ESTIMATED GFR IS CALCULATED [...] FAILURE: <15 ml/min/1.73 m2 10/24/2024 5:35 AM APRICOT PACKER us José Miguel Lowe MD LABORATORY Final Result [facility] [address] [place] [id number], * (ABNORMAL) CBC W/DIFF AUTOMATED (10/24/2024 5:35 AM APRICOT PACKER) Only the most recent of3 resultswithin the time period is included. WBC 10.99(H) 4.00 - 10.80 x10'3/uL 10/24/2024 5:50 AM [facility] RBC 3.09(L) 4.10 - 5.40 x10'6/uL 10/24/2024 5:50 AM [facility] HGB 8.9(L) 12.0 - 16.0 G/DL 10/24/2024 5:50 AM [facility] HCT 27.8(L) 36.0 - 47.0 % 10/24/2024 5:50 AM [facility] MCV 90.0 78.0 - 100.0 FL 10/24/2024 5:50 AM [facility] MCH 28.8 27.0 - 31.0 PG 10/24/2024 5:50 AM [facility] MCHC 32.0(L) 33.0 - 36.0 G/DL 10/24/2024 5:50 AM APRICOT PACKER [facility] RDW 14.2 11.5 - 14.5 % 10/24/2024 5:50 AM [facility] PLT 328 150 - 350 x10'3/uL 10/24/2024 5:50 AM [facility] MPV 10.2 7.4 - 10.4 FL 10/24/2024 5:50 AM [facility] CBC COMMENT NORMAL REFERENCE RANGE NOT ESTABLISHED FOR THE PROPORTIONAL LEUKOCYTE DIFFERENTIAL. 10/24/2024 5:50 AM [facility] NEUTROPHILS % 61.5 % 10/24/2024 5:50 AM APRICOT PACKER [facility] LYMPHOCYTES % 30.1 % 10/24/2024 5:50 AM APRICOT PACKER [facility] MONOCYTES % 6.0 % 10/24/2024 5:50 AM APRICOT PACKER [facility] EOSINOPHILS % 1.2 % 10/24/2024 5:50 AM APRICOT PACKER [facility] BASOPHILS % 0.7 % 10/24/2024 5:50 AM [facility] IMMATURE GRANS % 0.5 % 10/25/19 5:50 AM APRICOT PACKER [facility] NRBC % 0.0 % 10/24/2024 5:50 AM APRICOT PACKER [facility] ABS. NEUTROPHILS 6.75 1.60 - 8.30 x10'3/uL 10/24/2024 5:50 AM APRICOT PACKER [facility] ABS. LYMPHOCYTES 3.31 0.80 - 4.70 x10'3/uL 10/24/2024 5:50 AM [facility] ABS. MONOCYTES 0.66 0.00 - 1.50 x10'3/uL 10/24/2024 5:50 AM APRICOT PACKER [facility] ABS. EOSINOPHILS 0.13 0.00 - 0.40 x10'3/uL 10/24/2024 5:50 AM APRICOT PACKER [facility] ABS. BASOPHILS 0.08 0.00 - 0.20 x10'3/uL 10/24/2024 5:50 AM [facility] ABS. IMMATURE GRANULOCYTES 0.06(H) 0.00 - 0.03 x10'3/uL 10/24/2024 5:50 AM [facility] ABS. NUCLEATED RBC'S 0.00 0.00 - 0.01 x10'3/uL 10/24/2024 5:50 AM [facility] 10/24/2024 5:35 AM APRICOT PACKER us José Miguel Lowe MD LABORATORY Final Result [facility] Critical access [facility] [place] [address], * PHOSPHORUS, INORGANIC PHOSPHATE (10/24/2024 5:35 AM APRICOT PACKER) Only the most recent of2 resultswithin the time period is included. PHOSPHORUS 4.2 2.6 - 4.7 MG/DL 10/24/2024 6:23 AM APRICOT PACKER [facility] 10/24/2024 5:35 AM APRICOT PACKER us José Miguel Lowe MD LABORATORY Final Result Performing Organization Address [facility] [place] [address], * MAGNESIUM (10/24/2024 5:35 AM APRICOT PACKER) Only the most recent of3 resultswithin the time period is included. MAGNESIUM 1.9 1.8 - 2.4 MG/DL 10/24/2024 6:23 AM APRICOT PACKER [facility] 10/24/2024 5:35 AM APRICOT PACKER us José Miguel Lowe MD LABORATORY Final Result Performing Organization Address [facility] [place] [address], * (ABNORMAL) POCT glucose (10/23/2024 8:53 AM APRICOT PACKER) GLUCOSE POC 135(H) 70 - 99 MG/DL 10/23/2024 8:55 AM APRICOT PACKER [facility] 10/23/2024 8:53 AM APRICOT PACKER us Sridevi Eugene DO POCT ORDERABLES - DEVICE Final Result Performing Organization Address [facility] [place] [address], * CT ABD+PEL WO CON (10/23/2024 12:08 AM APRICOT PACKER) Anatomical Region Laterality Modality Abdomen Computed Tomogra phy 10/23/2024 12:1 5 AM APRICOT PACKER Impressions 10/23/2024 12:20 AM APRICOT PACKER IMPRESSION: 1. ABNORMAL TREE-IN-BUD OPACITIES ARE NOTED [...] 10/23/2024 12:15 AM Narrative 10/23/2024 12:20 AM APRICOT PACKER [address] [place] [address] PATIENT NAME: MRS. DEANNA PARTIDA EXAM: CT [...] Procedure Note Tr Watters MD - 10/23/2024 [facility] [address] [place] [address] PATIENT NAME: MRS. DEANNA PARTIDA EXAM: CT abdomen/pelvis without contrast DATE OF EXAM: 10/23/2024 COMPARISON EXAM: None INDICATION: Nausea and vomiting TECHNIQUE: Axial images obtained from xiphoid process to pubic symphysiswithout contrast using low-dose CT technique. Sagittal and coronalreconstruction. FINDINGS: CT ABDOMEN: Visualized portions of the lung bases demonstrate [id number] opacities in the right lung base right [...] * XR CHEST PORTABLE (10/22/2024 11:17 PM APRICOT PACKER) Anatomical Region Laterality Modality Chest Radiographic Dee ging 10/22/2024 11:2 4 PM APRICOT PACKER Impressions 10/22/2024 11:25 PM APRICOT PACKER IMPRESSION: No radiographic evidence of an acute cardiopulmonary abnormality. Referred By: Interpreted By: Jaxon Delgado MD, 10/22/2024 11:24 PM Narrative 10/22/2024 11:25 PM APRICOT PACKER [address] [place] [address] EXAMINATION: XR CHEST PORTABLE, 10/22/2024 11:25 PM [...] Procedure Note Jaxon Delgado MD - 10/22/[address] [place] [address] EXAMINATION: XR CHEST PORTABLE, 10/22/2024 11:25 PM [...] * ECG 12 lead (10/22/2024 10:25 PM APRICOT PACKER) 10/22/2024 10:2 5 PM APRICOT PACKER Narrative [facility] - 10/23/2024 10:02 AM APRICOT PACKER [address] [place] [place] [address] Test Date: 2024-10-22 Pat Name: [facility] Department: 3 Room: EXAM 808 Gender: Female Hand Rounder: : 1965 Requested By: SRIDEVI EUGENE Order Number: [id number] Reading MD: Patel Barraza Measurements Intervals Howard Rate: 93 P: 25 [place]: 176 QRS: -4 QRSD: 147 T: 132 QT: 392 QTc: 489 Interpretive Statements ELECTRONIC VENTRICULAR PACEMAKER ABNORMAL RHYTHM ECG COT PACKER Procedure Note Patel Barraza MD - 10/23/[address] [place] [place] [address] Test Date: 2024-10-22 Pat Name: [facility] Department: 3 Room: EXAM 808 Gender: Female Hand Rounder: : 1965 Requested By: SRIDEVI EUGENE Order Number: [id number] Reading : Patel Barraza Measurements Intervals Howard Rate: 93 P: 25 [place]: 176 QRS: -4 QRSD: 147 T: 132 QT: 392 QTc: 489 Interpretive Statements ELECTRONIC VENTRICULAR PACEMAKER ABNORMAL RHYTHM ECG COT PACKER Sridevi Eugene DO ECG ORDERABLES Final Result [facility] * LACTIC ACID W REFLEX (SEPSIS) (10/22/2024 10:25 PM APRICOT PACKER) LACTIC ACID VENOUS 1.4 0.4 - 2.0 MMOL/L 10/23/2024 12:22 AM APRICOT PACKER [facility] 10/22/2024 10:2 5 PM APRICOT PACKER us Sridevi Euegne DO LABORATORY Final Result Performing Organization Address City/[facility]/ZIP Co de Phone Number [facility] [address] [place] [address], * (ABNORMAL) TROPONIN, QUANT (10/22/2024 10:25 PM APRICOT PACKER) TROPONIN I HIGH SENSITIVITY 67(H) 0 - 51 ng/L 10/22/2024 11:02 PM APRICOT PACKER [facility] 10/22/2024 10:2 5 PM APRICOT PACKER us Sridevi Eugene DO LABORATORY Final Result Performing Organization Address [facility] Co de Phone Number [facility] [address] [place] [address], * THYROID STIM HORMONE, TSH (10/22/2024 10:25 PM APRICOT PACKER) TSH 0.369 0.358 - 3.740 uIU/ML 10/22/2024 11:02 PM APRICOT PACKER [facility] Comment: ASSAY PERFORMED BY CHEMILUMINESCENT IMMUNOASSAY METHODOLOGY USING SIEMENS DIMENSION REAGENT. PATIENT RESULTS DETERMINED BY ASSAYS FROM DIFFERENT MANUFACTURERS AND/OR BY DIFFERENT METHODS MAY NOT BE COMPARABLE. 10/22/2024 10:2 5 PM APRICOT PACKER us Sridevi Eugene DO LABORATORY Final Result Performing Organization Address City/[facility]/ZIP Co de Phone Number [facility] [address] [place] [address], [place] [phone] * LIPASE (10/22/2024 10:25 PM APRICOT PACKER) LIPASE 25 16 - 77 UNITS/L 10/22/2024 11:02 PM APRICOT PACKER [facility] 10/22/2024 10:2 5 PM APRICOT PACKER us Sridevi Eugene DO LABORATORY Final Result Performing Organization Address City/State/[facility] Co de Phone Number [facility] [address] [place] [address], * (ABNORMAL) SALICYLATE (10/22/2024 10:25 PM APRICOT PACKER) SALICYLATES 0.6(L) 2.8 - 20.0 MG/DL 10/22/2024 11:02 PM APRICOT PACKER [facility] 10/22/2024 10:2 5 PM APRICOT PACKER us Sridevi Eugene DO LABORATORY Final Result Performing Organization Address [facility] Co de Phone Number [facility] [address] [place] [address], * ETHANOL (10/22/2024 10:25 PM APRICOT PACKER) ALCOHOL S/P/B <0.003 <0.003 G/DL 10/22/2024 11:02 PM APRICOT PACKER [facility] 10/22/2024 10:2 5 PM APRICOT PACKER us Sridevi Eugene DO LABORATORY Final Result Performing Organization Address [facility] Co de Phone Number [facility] [address] [place] [address], * (ABNORMAL) ACETAMINOPHEN (10/22/2024 10:25 PM APRICOT PACKER) ACETAMINOPHEN S/P/B 0.0(L) 10.0 - 30.0 MCG/ML 10/22/2024 11:02 PM APRICOT PACKER [facility] 10/22/2024 10:2 5 PM APRICOT PACKER us Sridevi Eugene DO LABORATORY Final Result Performing Organization Address [facility] Co de Phone Number [facility] [address] [place] [address], * CORONAVIRUS (COVID-19) ANTIGEN (10/22/2024 10:00 PM APRICOT PACKER) CORONAVIRUS ANTIGEN IA NEGATIVE NEGATIVE 10/22/2024 10:40 PM APRICOT PACKER [facility] Comment: NEGATIVE RESULTS DO NOT RULE [...] LABORATORIES. SPECIMEN TYPE NASAL 10/22/2024 10:12 PM APRICOT PACKER [facility] NASAL NASAL STRUCTURE / Unknown 10/22/2024 10:00 PM APRICOT PACKER Sridevi Eugene DO MICROBIOLOGY - GENERAL ORDERABL ES Final Result [facility] [address] [place] [address], * DRUG SCREEN RAPID (10/22/2024 10:00 PM APRICOT PACKER) CANNABINOIDS SCREEN (U) NEGATIVE NEGATIVE 10/22/2024 10:30 PM APRICOT PACKER [facility] PHENCYCLIDINE PCP (U) NEGATIVE NEGATIVE 10/22/2024 10:30 PM APRICOT PACKER [facility] COCAINE METABOLITES (U) NEGATIVE NEGATIVE 10/22/2024 10:30 PM APRICOT PACKER [facility] METHAMPHETAMINE SCREEN (U) NEGATIVE NEGATIVE 10/22/2024 10:30 PM APRICOT PACKER [facility] OPIATE SCREEN (U) NEGATIVE NEGATIVE 025 10:30 PM APRICOT PACKER [facility] AMPHETAMINE SCREEN (U) NEGATIVE NEGATIVE 10/22/2024 10:30 PM APRICOT PACKER [facility] BENZODIAZEPINES SCREEN (U) NEGATIVE NEGATIVE 10/22/2024 10:30 PM APRICOT PACKER [facility] TRICYCLIC ANTIDEPRESSANT SCREEN (U) NEGATIVE NEGATIVE 10/22/2024 10:30 PM APRICOT PACKER [facility] METHADONE (U) NEGATIVE NEGATIVE 10/22/2024 10:30 PM APRICOT PACKER [facility] BARBITURATES SCREEN (U) NEGATIVE NEGATIVE 10/22/2024 10:30 PM APRICOT PACKER [facility] OXYCODONE SCREEN (U) NEGATIVE NEGATIVE 10/22/2024 10:30 PM APRICOT PACKER [facility] URINE TOX COMMENT THIS TEST METHODOLOGY IS DESIGNED AND OFFERED A RAPID TURNAROUND, QUALITATIVE SCREENING PROCEDURE TO AID IN THE IMMEDIATE MEDICAL ASSESSMENT OF PATIENTS SUSPECTED OF SUBSTANCE ABUSE. 10/22/2024 10:12 PM APRICOT PACKER [facility] Comment: CLINICAL CONSIDERATION AND PROFESSIONAL JUDGMENT MUST BE APPLIED TO ANY DRUG OF ABUSE TEST RESULT, BOTH POSITIVE AND NEGATIVE. CONFIRMATORY QUANTITATIVE RESULTS ARE AVAILABLE THROUGH OUR [facility]FER[facility]. URINE SPECIMEN / Unknown 10/22/2024 10:00 PM APRICOT PACKER us Sridevi Eugene DO URINE ORDERABLES Final Result Performing Organization Address [facility] Co de Phone Number [facility] [address] [place] [address], * INFLUENZA A & B (10/22/2024 10:00 PM APRICOT PACKER) SPECIMEN TYPE (INFLUENZA) NASOPHARYNGEAL SWAB 10/22/2024 10:12 PM APRICOT PACKER [facility] INFLUENZA A NEGATIVE NEGATIVE 10/22/2024 10:40 PM APRICOT PACKER [facility] INFLUENZA B NEGATIVE NEGATIVE 10/22/2024 10:40 PM APRICOT PACKER [facility] Comment: A NEGATIVE RESULT DOES NOT EXCLUDE INFLUENZA VIRUS INFECTION. IF INFLUENZA IS CIRCULATING IN YOUR COMMUNITY, A DIAGNOSIS OF INFLUENZA SHOULD BE CONSIDERED BASED ON A PATIENT'S CLINICAL PRESENTATION AND EMPIRIC ANTIVIRAL TREATMENT SHOULD BE CONSIDERED IF INDICATED. NASOPHARYNGEAL SWAB / Unknown 10/22/2024 10:00 PM APRICOT PACKER us Sridevi Eugene DO MICROBIOLOGY - GENERAL ORDERABL ES Final Result Performing Organization Address [facility]/ZIP Co de Phone Number [facility] [address] [place] [address], * (ABNORMAL) URINALYSIS (10/22/2024 10:00 PM APRICOT PACKER) COLOR (U) YELLOW 10/22/2024 10:35 PM [facility] TRANSPARENCY CLEAR 10/22/2024 10:35 PM [facility] SPECIFIC GRAVITY (U) 1.025 1.000 - 1.025 10/22/2024 10:35 PM [facility] U PH 7.5 5.0 - 8.0 10/22/2024 10:35 PM [facility] LEUKOCYTES (U) NEGATIVE NEGATIVE 10/22/2024 10:35 PM [facility] NITRITES NEGATIVE NEGATIVE 10/22/2024 10:35 PM [facility] PROTEIN RANDOM (U) 3+(A) NEGATIVE 10/22/2024 10:35 PM [facility] GLUCOSE (U) 2+(A) NEGATIVE 10/22/2024 10:35 PM [facility] KETONES MG/DL (U) TRACE(A) NEGATIVE 10/22/2024 10:35 PM [facility] UROBILINOGEN 0.2 <1.0 EU/DL 10/22/2024 10:35 PM [facility] BILIRUBIN (U) NEGATIVE NEGATIVE 10/22/2024 10:35 PM [facility] BLOOD (U) TRACE(A) NEGATIVE 10/22/2024 10:35 PM [facility] WBC/HPF 0-5 0 - 5 /HPF 10/22/2024 10:35 PM [facility] RBC/HPF 0-5 0 - 5 /HPF 10/22/2024 10:35 PM [facility] EPI/LPF FEW /LPF 10/22/2024 10:35 PM [facility] BACTERIA (U) 1+ /HPF 10/22/2024 10:35 PM [facility] MUCUS PRESENT 10/22/2024 10:35 PM [facility] URINE SPECIMEN OBTAINED BY CLEAN CATCH PROCEDURE / Unknown 10/22/2024 10:00 PM [employer] us Sridevi Eugene DO URINE ORDERABLES Final Result [facility] [address] [place] [address], from Last 3 Months Insurance MEDICARE PART A MEDICAID [facility] * Guarantor: Deanna Partida Account Type Relation to Patient Date of Phone Billing Address Aly Norman B3 Self 1965 [address] [place] [address] Advance Directives Documents on File Type Date Recorded Patient Complaint Manager Expl anation Advance Directives and Livin g [...] 1:37 PM 03/17/2022 7:40 PM Care Teams Tree Doctor Relationship Specialty Start Date End Date Destinee Rodriguez NP PCP - General NURSE PRACTITIONER 09/08/23
--- NOTE | 2024-12-20 21:50 | P.HP_ITS ---
H&P: HPI History of Present Illness Date/Time: 12/20/24 21:50 Chief Complaint: Hematemesis. Narrative: This is a 59-year-old female with history of gastroesophageal reflux disease, ulcers, chronic kidney disease stage 4 with anemia of chronic kidney disease, insulin-dependent type 2 diabetes mellitus, hypertension, and congestive heart failure type unknown (poorly documented and patient denies) who is being d irectly admitted to the medical floor from [facility] for close monitoring and GI consultation after she developed hematemesis. She was admitted to the hospital 2 nights ago with gastroenteritis and dehydration after presenting with a one-week history of nausea, vomiting, and mild diarrhea. CT scan at that time showed no acute abnormalities and noted a small hiatal hernia. Her kidney function improved with IV fluid however she continues to have nausea and intermittent vomiting. Today she appeared to have coffee-ground emesis which was gastroccult positive and transfer was initiated to [facility]. She had evidence of coffee-ground emesis on the front of her gown on arrival. She has not had any further episodes of vomiting and is currently with only mild nausea and she is asking for something to drink. At time she has an aching discomfort throughout her abdomen but is not severe enough for her to take analgesics and is manageable at this time. Again, she tells me she has a history of ulcers. She admits that she takes NSAIDs for pain though she does not quantify. She denies recent stressors, significant caffeine use, and alcohol use. She also denies fever, chills, sweats, syncope, near syncope, chest pain, shortness of breath, cough, and dysuria. She is blind and thus cannot say if there has been any blood in her stool. Review of Systems Review of Systems: 12 systems were reviewed and are negativ e except for as per HPI. 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 Code status: Full code. Smoking status: Never smoker Second hand tobacco smoke exposure: No Alcohol intake: never Substance use: never Additional living arrangements comments: Lives with in [place]. They have 2 grown children. Additional occupation/education comments: Was in the [employer] [place]. Spiritual care concerns: No Meds Home Medications and Allergies Home Medications ?Medication ?Instructions ?Recorded ?Confirmed ?Type Novolog U-100 Insulin aspart See Rx Instructions .Route .COMPLEX 02/26/22 12/18/24 History insulin glargine 100 unit/mL 40 unit subcut DAILY 02/26/22 12/18/24 History subcutaneous cartridge amlodipine 10 mg tablet 10 mg PO DAILY 12/18/24 12/18/24 History aspirin 81 mg tablet,delayed 81 mg PO DAILY 12/18/24 12/18/24 History release (Adult Aspirin Regimen) atorvastatin 80 mg tablet (Lipitor) 80 mg PO HS 12/18/24 12/18/24 History bumetanide 1 mg tablet 1 mg PO DAILY 12/18/24 12/18/24 History darbepoetin jeffrey-albumin 40 mcg/mL 40 mcg subcut MONTHLY PRN low hgb 12/18/24 12/18/24 History in albumin injection famotidine 40 mg tablet 40 mg PO BID 12/18/24 12/18/24 History folic acid 1 mg tablet 1 mg PO DAILY 12/18/24 12/18/24 History gabapentin 100 mg capsule 100 mg PO BID 12/18/24 12/18/24 History hydralazine 10 mg tablet 10 mg PO TID 12/18/24 12/18/24 History isosorbide dinitrate 10 mg tablet 20 mg PO BID 12/18/24 12/18/24 History metoclopramide HCl 10 mg tablet 10 mg PO TIDWMEAL 12/18/24 12/18/24 History sertraline 50 mg tablet 50 mg PO Q24H 12/18/24 12/18/24 History sodium bicarbonate 650 mg tablet 650 mg PO BID 12/18/24 12/18/24 History Allergies Allergy/AdvReac Type Severity Reaction Status Date / Time No Known Allergies Allergy Unknown Verified 12/18/24 17:52 Exam Narrative: General: Chronically ill-appearing female in the semi-Abernathy position in bed. She does not appear in any acute distress and is nontoxic in appearance. Weight: 46.3 kg. BMI: 28.6. HEENT: PERRL, EOMI. Sclera anicteric. Oral mucosa moist. Oropharynx clear. Neck: Supple. Respiratory: Lungs are clear to auscultation bilaterally. Cardiovascular: Regular rate and rhythm with S1-S2. No murmur, rub, or gallop. Gastrointestinal: Abdomen is soft, nontender, and nondistended with positive bowel sounds. No organomegaly. Skin: Warm and dry. No rash or lesions on limited exam. Extremities: No cyanosis, clubbing, or edema. Radial and pedal pulses intact. Neurological: Alert. Cranial nerves 2-12 are grossly intact. Speech is clear. No facial asymmetry. No gross focal deficits to casual conversation. Psychiatric: Pleasant and cooperative with normal mood and affect. Judgment and insight intact. H&P: Results Labs Labs: Labs from outside facility: Short CBC 12/18/24 12/19/24 Range/Units 18:08 04:22 WBC 8.6 10.7 (4.8-10.8) K/mm3 Hgb 9.9 L 10.0 L (12.0-15.0) g/dL Hct 31.5 L 31.8 L (35.0-49.0) % Plt Count 327 302 (150-420) K/mm3 BMP 12/18/24 12/19/24 18:08 04:22 Sodium 141 145 Potassium 3.6 4.4 Chloride 108 H 109 H Carbon Dioxide 18 L 22 BUN 39 H 35 H Creatinine 3.34 H 3.14 H Glucose 145 H 198 H Calcium 9.2 8.8 Liver Function 12/18/24 12/19/24 Range/Units 18:08 04:22 Total Bilirubin 0.5 0.3 (0.2-1.3) mg/dL AST 21 17 (14-36) U/L ALT 13 18 (6-35) U/L Alkaline Phosphatase 127 H 139 H (38-126) U/L Albumin 4.1 3.5 (3.5-5.1) g/dL Urine 12/18/24 Range/Units 17:47 Urine Color Light yellow (Yellow) Urine Appearance Clear (Clear) Urine pH 5.5 (5.0-8.0) Ur Specific [place] 1.015 (1.010-1.020) Urine Protein 2+ H (Negative) Urine Glucose (UA) Negative (Negative) Laboratory Last Values WBC 12.9 K/mm3 (4.5-10.0) H 12/20/24 22:22 RBC 2.95 M/mm3 (4.2-5.4) L 12/20/24 22:22 Hgb 8.5 g/dL (12.0-15.0) L 12/20/24 22:22 Hct 28.1 % (37.0-47.0) L 12/20/24 22:22 MCV 95.3 fl (80-100) 12/20/24 22:22 MCH 28.8 pg (26-34) 12/20/24 22:22 MCHC 30.2 g/dl (32-36) L 12/20/24 22:22 RDW 14.4 % (11.5-14.5) 12/20/24 22:22 Plt Count 246 k/mm3 (150-375) 12/20/24 22:22 MPV 10.9 fl (7.4-10.4) H 12/20/24 22:22 Sodium 146 mmol/L (137-145) H 12/20/24 22:22 Potassium 3.0 mmol/L (3.4-5.0) L 12/20/24 22:22 Chloride 115 mmol/L (98-107) H 12/20/24 22:22 Carbon Dioxide 20 mmol/L (22-30) L 12/20/24 22:22 Anion Gap 11 mmol/L (4-12) 12/20/24 22:22 BUN 27 mg/dL (7-17) H D 12/20/24 22:22 Creatinine 2.50 mg/dL (0.7-1.0) H 12/20/24 22:22 Estim Creat Clear Calc Not Reportable 12/20/24 22:22 Estimated GFR 20 (59-) L 12/20/24 22:22 Glucose 92 mg/dL (65-110) 12/20/24 22:22 Hemoglobin A1c 5.3 % (<5.7) 12/20/24 22:22 Calcium 8.3 mg/dL (8.4-10.2) L 12/20/24 22:22 Magnesium 1.9 mg/dL (1.6-2.3) 12/20/24 22:22 Total Bilirubin 0.5 mg/dL (0.2-1.3) 12/20/24 22:22 AST 22 U/L (14-36) 12/20/24 22:22 ALT 14 U/L (6-35) 12/20/24 22:22 Alkaline Phosphatase 101 U/L (38-126) 12/20/24 22:22 Total Protein 7.0 g/dL (6.3-8.2) 12/20/24 22:22 Albumin 3.6 g/dL (3.5-5.1) 12/20/24 22:22 Blood Type A Negative 12/20/24 22:22 Antibody Screen Negative 12/20/24 22:22 Assessment and Plan Assessment and plan (1) Hematemesis: Code(s): K92.0 - Hematemesis Status: Acute (2) Electrolyte abnormality: Code(s): E87.8 - Other disorders of electrolyte and fluid balance, not elsewhere classified Status: Acute (3) Chronic kidney disease, stage 4 (severe): Code(s): N18.4 - Chronic kidney disease, stage 4 (severe) Status: Acute (4) Insulin dependent type 2 diabetes mellitus: Code(s): E11.9 - Type 2 diabetes mellitus without complications; Z79.4 - oysterman (current) use of insulin Status: Acute (5) Heart failure, type unknown: Code(s): I50.9 - Heart failure, unspecified Status: Acute Plan The patient was transferred from the medical floor at the [facility] for further evaluation after she was found to have a couple of episodes of hematemesis as detailed in HPI. Labs, imaging, EKG, and all reports were personally reviewed. She was treated with supportive care for dehydration and pr esumed gastroenteritis with improvement in her renal function closer to baseline. She has some mild electrolyte abnormalities including a sodium of 149, potassium 3.0, and magnesium 1.6. She is lacking free water and while she is a diabetic her glucose has been running in 80s to 90s thus will give her 1 L of D5 half-normal saline overnight. Her potassium and magnesium will be replaced and monitored. Start pantoprazole 40 mg IV b.i.d.. She may have clear liquids for now if tolerated. Antiemetics available as needed. Dr. Baca was consulted and they believe he intends on taking her for an upper endoscopy on Sunday. We discussed that she needs to avoid taking NSAIDs in light of her chronic kidney disease and history of ulcers. Continue to hold basal insulin. Initiate sliding scale insulin, Accu-Cheks, and hypoglycemic protocol. She appears euvolemic on exam; monitor daily weights and I/O to avoid over- hydration. Blood pressures have been reasonable and will be monitored. Her med ications will be reviewed and resumed as appropriate. Findings and treatment plan were discussed with the patient. Questions were solicited and answered to satisfaction. The patient's medical management will be taken over by the hospitalist team in a.m. Quality VTE Prophylaxis VTE prophylaxis: mechanical ordered If No VTE Prophylaxis Answer both mechanical and pharmacologic: Reason no pharmacologic proph: medical contraindication (hematemesis) Hospitalist MIPS Advance Care Plan I have confirmed that the patient's Advanced Care Plan is present, code status is documented, or surrogate decision maker is listed in patient medical record.: Yes Medication Reconciliation I have utilized all available resources to obtain, update and review the patients current medications (includes all prescriptions, OTC, herbals, cannabis, and nutritional supplements).: Yes
--- NOTE | 2024-12-20 21:52 | ECG_ITS ---
Test Date: 2024-12-21 07:25:21 Measurements Intervals [place] Rate: 90 P: 54 NV: 181 QRS: -8 QRSD: 132 T: 116 QT: 405 QTc: 498 Interpretive Statements SINUS RHYTHM LEFT BUNDLE BRANCH BLOCK [120+ ms QRS DURATION, 80+ ms Q/S IN V1/V2, 85+ ms R IN I/aVL/V5/V6] Compared to ECG 12/18/2024 18:23:29 First degree AV block no longer present Electronically Signed On 12-21-2024 16:05:06 CDT by Soniya Rizvi
--- OUTSIDE RECORDS SUMMARY | 2024-12-20 22:28 | XMS_ITS | Encounter Summary ---
Author Organization [facility] Address [address] [place] [address] Care Team Providers Care Book Canvasser Name Role Phone None, Provider MD Primary Care Provider Jyothi treviño Non-Staff, Provider Primary Care Provider Luis Manuel Osborne MD Primary Care Provider [phone] Destinee Rodriguez NP Primary Care Provider [phone] Reason for Referral * Surgical (Routine) - Closed Specialty Diagnoses / Procedures Referred By Ashlie t Referred To Contact Diagnoses Osteomyelitis Procedures Case request operating room: BONE BIOPSY-FOOT Jaxon August MD [facility]. [facility] [address] [place] [address] Phone: tel: fax: [facility] [place] [address] Phone: tel: Referral ID Status Reason Start Date Expiration Date Visits Re quested Visits Authorized [id number] Closed 03/09/2022 04/06/2023 1 1 Encounter Details Date Type Department Care Team (Late st Contact Info) Description 03/06/2022 Prep for Procedure [facility], [address] [place], [place] [id number] Jaxon August MD [facility]. [address] [place] [address] Social History Tobacco Use Types Packs/Day Years Used Date Smoking Tobacco: Never Smokeless Tobacco: Never Comments Unknown Sex and Gender Information Value Date Recorded Sex Assigned at Female 10/22/2024 9:59 PM UX LEAD Legal Sex Female 9:54 PM UX LEAD Gender Identity Not on file Sexual Orientation [...] AM CDT Gómez Martin RN Active * [place] Suicide Severity Rating Scale (Screener/Recent Self-Report) Question [...] Rule Out 10/22/2024 10/22/2024 10/22/2024 10:40 PM UX LEAD Respiratory Rule-Out 10/22/2024 10/22/2024 025 10:41 PM UX LEAD documented as of this encounter Care Teams Book Canvasser Relationship Specialty Start Date End Date None, Provider, PCP - General 08/20/21 06/01/22 Non-Staff, Provider PCP - General UNKNOWN PHYSICIAN SPECIALTY 06/02/22 05/07/23 Luis Manuel Mccall MD [facility] [place] [id number] PCP - General FAMILY PRACTICE 05/08/23 09/07/23 Destinee Rodriguez NP [facility] [place] [id number] PCP - General NURSE PRACTITIONER 09/08/23 documented as of this encounter
--- OUTSIDE RECORDS SUMMARY | 2024-12-20 22:28 | XMS_ITS | Encounter Summary ---
Author Organization [facility] Address [address] [place] [address] Care Team Providers Care Spray Rig Operator Name Role Phone Destinee Rodriguez NP Primary Care Provider [phone] Encounter Details Date Type Department Care Team (Late st Contact Info) Description 09/17/2023 Hospital Follow-up Call [facility] [address] [place] [address] Xiomara Schmitt RN Social History Tobacco Use Types Packs/Day Years Used Date Smoking Tobacco: Never Smokeless Tobacco: Never [facility] Utilities Answer Date Recorded In the [...] place to sleep or slept in a penitentiary (including now)? No 09/08/2023 Comments Unknown Sex and Gender Information Value Date Recorded Sex Assigned at Female 10/22/2024 9:59 PM [employer] Legal Sex Female 9:54 PM [employer] Gender Identity Not on file Sexual Orientation [...] Assessment Author Status No 09/08/2023 3:58 AM [employer] Ever Yancey RN Active documented as of this encounter Mental Status * Because of a physical, mental, or emotional condition, do you have serious difficulty concentrating, remembering, or making decisions? Answer Entry Date Author Status No 09/08/2023 3:58 AM [employer] Ever Yancey RN Active documented in this [...] Rule Out 10/22/2024 10/22/2024 10/22/2024 10:40 PM [employer] Respiratory Rule-Out 10/22/2024 10/22/2024 025 10:41 PM [employer] documented as of this encounter Care Teams Spray Rig Operator Relationship Specialty Start Date End Date Destinee Rodriguez, REKHA PCP - General NURSE PRACTITIONER 09/08/23 documented as of this encounter
--- OUTSIDE RECORDS SUMMARY | 2024-12-20 22:28 | XMS_ITS | Clinical Summary ---
Author Organization [facility] Address [address] [place] [address] Care Team Providers Care Dental Appliance Fixer Name Role Phone Destinee Rodriguez NP Primary Care Provider Allergies No known active allergies Medications amLODIPine [...] heart failure with left ventricular diastolic dysfunction ([facility] HHS/HCC),Hypoxic respiratory failure ([facility] HHS/HCC) 1 Device by Nasal route continuous. Nasal Cannula. 2L continuous oxygen. Portable tank and stationary concentrator 1 Device 4 Active OXYGEN CONCENTRATOR SUPPLY, DME,Indications: Congestive heart failure with left ventricular diastolic dysfunction (CMS/HCC HHS/HCC),Hypoxic respiratory failure (CMS/[facility] HHS/HCC) 1 Device by Nasal [...] failure wit h left ventricular diastolic dysfunction ([facility] HHS/HCC) 09/13/2023 Hypoxic respiratory failure ([facility] HHS/HCC) Fracture of femoral neck, right ([facility] ) 05/04/2023 Osteomyelitis ([facility]) 02/26/2022 Encounters Date Type Department Care Team Description 10/27/2024 Hospital Follow-up Call [facility] Care Management [address] [place] [address] Emily Haywood RN Hospital Follow Up (10/22/2024 - 10/24/2024 (2 days)/[facility]///) 10/22/2024 9:51 PM WORKFORCE SPECIALIST - 10/24/2024 5:06 PM WORKFORCE SPECIALIST Hospital Encounter [facility] [address] [address] Sridevi Eugene DO Sahi, Robinder S, MD [...] drink = 0.6 oz pur e alcohol) [facility] Utilities Answer Date Recorded In the past 12 months has [facility] mCASH, gas, oil, or water Trellie threatened to shut off services in your [...] place to sleep or slept in a intermediate (including now)? No 09/08/2023 Housing Stability Vital [...] any time in the past 12 m [facility], were you homeless or living in a intermediate (including now)? Patient declined 10/23/2024 Comments No Sex and Gender Information Value Date Recorded Sex Assigned at Female 10/22/2024 9:59 PM WORKFORCE SPECIALIST Legal Sex Female 9:54 PM WORKFORCE SPECIALIST Gender Identity Not on file Sexual Orientation Not on file Last Filed Vital Signs Vital Sign Reading Time Taken Comments Blood Pressure 107/54 10/24/2024 8:00 AM WORKFORCE SPECIALIST Pulse 77 10/24/2024 8:00 AM WORKFORCE SPECIALIST Temperature 36 C (96.8 F) 10/24/2024 8:00 AM WORKFORCE SPECIALIST Respiratory Rate 16 10/24/2024 8:00 AM WORKFORCE SPECIALIST Oxygen Saturation 100% 10/24/2024 8:00 AM WORKFORCE SPECIALIST Inhaled Oxygen Concentration - - Weight 49.4 kg (109 lb) 10/23/2024 12:00 PM WORKFORCE SPECIALIST Height 149.9 cm (4' 11 ) 10/23/2024 12:00 PM WORKFORCE SPECIALIST Body Mass Index 22.02 10/23/2024 12:00 PM WORKFORCE SPECIALIST Plan of Treatment Health Maintenance Due [...] Colón, BERNIE Medical Devices Implanted Type Area Harp Action Assembler Device Identifier Shelf Expiration Date Model / Serial / Lot Cement Bone Biomet 40gm - [id number] Implanted:Qty: 2 on 05/05/2023 by Idris Almanza MD at [facility] Cement Implant Right: Hip [employer] 08/19/2025 [id number] / / Plug Cement Kvng Gabriel Medullary 20mm - [id number] Implanted:Qty: 1 on 05/05/2023 by Idris Almanza MD at [facility] Cement Implant Right: Hip [employer] 01/11/2027 [id number] / / Shell Kvng Bipolar 41mm Od - [id number] Implanted:Qty: 1 on 05/05/2023 by Idris Almanza MD at [facility] Hip Components Right: Hip [employer] 12/17/2025 [id number] / / Liner Kvng Bipolar Hip 22 Id 40/41mm - [id number] Implanted:Qty: 1 on 05/05/2023 by Idris Almanza MD at [facility] Hip Components Right: Hip [employer] 08/19/2025 [id number] / / [id number] Implanted:Qty: 1 on 05/05/2023 by Idris Almanza MD at [facility] Right: Hip [employer] 08/25/2027 [id number] / / Femoral Head Implanted:Qty: 1 on 05/05/2023 by Idris Almanza MD at [facility] Right: Hip [employer] 09/15/2031 [id number] / / Explanted Type Area Harp Action Assembler Device Identifier Shelf Expiration Date Model / Serial / Lot System Bone Cement 1 2 Mix - [id number] Explanted:Qty: 1 on 05/05/2023 by Idris Almanza MD at [facility] Cement Implant Right: Hip [employer] 12/21/2025 [id number] / / Femoral Cement Preparation Kit Explanted:Qty: 1 on 05/05/2023 by Idris Almanza MD at [facility] Right: Hip [employer] 11/25/2027 [id number] / / Procedures Procedure Name Priority Date/Time Associated Diagnosis Comments PHOSPHORUS, INORGANIC PHOSPHATE Routine 10/24/2024 5:35 AM WORKFORCE SPECIALIST MAGNESIUM Routine 10/24/2024 5:35 AM WORKFORCE SPECIALIST COMPREHENSIVE METABOLIC PANEL Routine 10/24/2024 5:35 AM WORKFORCE SPECIALIST CBC W/DIFF AUTOMATED Routine 10/24/2024 5:35 AM WORKFORCE SPECIALIST POCT GLUCOSE - GUNN DOCKED DEVICE Routine 10/23/2024 8:53 AM WORKFORCE SPECIALIST PHOSPHORUS, INORGANIC PHOSPHATE Routine 10/23/2024 8:19 AM WORKFORCE SPECIALIST MAGNESIUM Routine 10/23/2024 8:19 AM WORKFORCE SPECIALIST CBC W/DIFF AUTOMATED STAT 10/23/2024 8:[address] ABD+PEL WO CON STAT 10/23/2024 12: 08 AM WORKFORCE SPECIALIST XR CHEST PORTABLE STAT 10/22/2024 11: 17 PM WORKFORCE SPECIALIST ECG 12-LEAD Routine 10/22/2024 10:25 PM WORKFORCE SPECIALIST LACTIC ACID W REFLEX (SEPSIS) STAT 10/22/2024 10:25 PM WORKFORCE SPECIALIST THYROID STIM HORMONE TSH STAT 10/22/2024 10:25 PM WORKFORCE SPECIALIST SALICYLATE STAT 10/22/2024 10:25 PM WORKFORCE SPECIALIST ACETAMINOPHEN STAT 10/22/2024 10:25 PM WORKFORCE SPECIALIST ETHANOL STAT 10/22/2024 10:25 PM WORKFORCE SPECIALIST MAGNESIUM STAT 10/22/2024 10:25 PM WORKFORCE SPECIALIST LIPASE STAT 10/22/2024 10:25 PM WORKFORCE SPECIALIST TROPONIN, QUANT STAT 10/22/2024 10:25 PM WORKFORCE SPECIALIST COMPREHENSIVE METABOLIC PANEL STAT 10/22/2024 10:25 PM WORKFORCE SPECIALIST CBC W/DIFF AUTOMATED STAT 10/22/2024 10:25 PM WORKFORCE SPECIALIST INFLUENZA A & B STAT 10/22/2024 10:00 PM WORKFORCE SPECIALIST CORONAVIRUS (COVID-19) ANTIGEN STAT 10/22/2024 10:00 PM WORKFORCE SPECIALIST DRUG SCREEN RAPID STAT 10/22/2024 10: 00 PM WORKFORCE SPECIALIST HC URINALYSIS AUTO W/MICRO STAT 10/22/2024 10:00 PM WORKFORCE SPECIALIST from Last 3 Months Results * (ABNORMAL) COMPREHENSIVE METABOLIC PANEL (10/24/2024 5:35 AM WORKFORCE SPECIALIST) Only the most recent of2 resultswithin the time period is included. SODIUM S/P/B 140 136 - 145 MMOL/L 10/24/2024 6:23 AM [facility] POTASSIUM S/P/B 3.8 3.5 - 5.1 MMOL/L 10/24/2024 6:23 AM [facility] Comment:SLIGHT HEMOLYSIS, RE SULT MAY BE AFFECTED. CHLORIDE S/P/B 106 98 - 107 MMOL/L 10/24/2024 6:23 AM [facility] CO2 24.4 21.0 - 32.0 MMOL/L 10/24/2024 6:23 AM [facility] GLUCOSE 107(H) 70 - 99 MG/DL 10/24/2024 6:23 AM [facility] Comment: FASTING GLUCOSE 100 TO 125 MG/DL IS CONSISTENT WITH IMPAIRED FASTING GLUCOSE. FASTING GLUCOSE >125 MG/DL IS CONSISTENT WITH DIABETES. RANDOM GLUCOSE >200 MG/DL WITH HYPERGLYCEMIC SYMPTOMS IS CONSISTENT WITH DIABETES. PER ADA GUIDELINES BUN 36(H) 6 - 24 MG/DL 10/24/2024 6:23 AM [facility] CREATININE S/P/B 3.61(H) 0.55 - 1.02 MG/DL 10/24/2024 6:23 AM [facility] CALCIUM S/P/B 8.0(L) 8.4 - 10.5 MG/DL 10/24/2024 6:23 AM [facility] BILIRUBIN TOTAL S/P/B 0.2 0.2 - 1.0 MG/DL 10/24/2024 6:23 AM [facility] Comment: THIS ASSAY IS NOT RECOMMENDED FOR PATIENTS UNDERGOING TREATMENT WITH ELTROMBOPAG DUE TO THE POTENTIAL FOR FALSELY ELEVATED RESULTS. ALKALINE PHOSPHATASE S/P/B 103 50 - 130 U/L 10/24/2024 6:23 AM [facility] AST 17 15 - 37 U/L 10/24/2024 6:23 AM [facility] ALT 13(L) 14 - 59 U/L 10/24/2024 6:23 AM [facility] TOTAL PROTEIN S/P/B 6.4 6.4 - 8.2 G/DL 10/24/2024 6:23 AM [facility] ALBUMIN S/P/B 2.6(L) 3.4 - 5.0 G/DL 10/24/2024 6:23 AM [facility] ANION GAP 9.6 5.0 - 15.0 MMOL/L 10/24/2024 6:23 AM [facility] OSMOLALITY (CALC) 299 MOSM/KG 025 6:23 AM [facility] Comment:REFERENCE RANGE NOT ESTABLISHED GFR ESTIMATE 14(L) >89 ML/MIN/1. 73 M2 10/24/2024 6:23 AM [facility] GFR NOTES GFR REFERENCE S: 10/24/2024 6:23 AM [facility] Comment: THE ESTIMATED GFR IS CALCULATED [...] FAILURE: <15 ml/min/1.73 m2 10/24/2024 5:35 AM WORKFORCE SPECIALIST us José Miguel Lowe MD LABORATORY Final Result [facility] [address] [place] [id number], * (ABNORMAL) CBC W/DIFF AUTOMATED (10/24/2024 5:35 AM WORKFORCE SPECIALIST) Only the most recent of3 resultswithin the time period is included. WBC 10.99(H) 4.00 - 10.80 x10'3/uL 10/24/2024 5:50 AM [facility] RBC 3.09(L) 4.10 - 5.40 x10'6/uL 10/24/2024 5:50 AM [facility] HGB 8.9(L) 12.0 - 16.0 G/DL 10/24/2024 5:50 AM [facility] HCT 27.8(L) 36.0 - 47.0 % 10/24/2024 5:50 AM [facility] MCV 90.0 78.0 - 100.0 FL 10/24/2024 5:50 AM [facility] MCH 28.8 27.0 - 31.0 PG 10/24/2024 5:50 AM [facility] MCHC 32.0(L) 33.0 - 36.0 G/DL 10/24/2024 5:50 AM WORKFORCE SPECIALIST [facility] RDW 14.2 11.5 - 14.5 % 10/24/2024 5:50 AM [facility] PLT 328 150 - 350 x10'3/uL 10/24/2024 5:50 AM [facility] MPV 10.2 7.4 - 10.4 FL 10/24/2024 5:50 AM [facility] CBC COMMENT NORMAL REFERENCE RANGE NOT ESTABLISHED FOR THE PROPORTIONAL LEUKOCYTE DIFFERENTIAL. 10/24/2024 5:50 AM [facility] NEUTROPHILS % 61.5 % 10/24/2024 5:50 AM WORKFORCE SPECIALIST [facility] LYMPHOCYTES % 30.1 % 10/24/2024 5:50 AM WORKFORCE SPECIALIST [facility] MONOCYTES % 6.0 % 10/24/2024 5:50 AM WORKFORCE SPECIALIST [facility] EOSINOPHILS % 1.2 % 10/24/2024 5:50 AM WORKFORCE SPECIALIST [facility] BASOPHILS % 0.7 % 10/24/2024 5:50 AM [facility] IMMATURE GRANS % 0.5 % 10/25/19 5:50 AM WORKFORCE SPECIALIST [facility] NRBC % 0.0 % 10/24/2024 5:50 AM WORKFORCE SPECIALIST [facility] ABS. NEUTROPHILS 6.75 1.60 - 8.30 x10'3/uL 10/24/2024 5:50 AM WORKFORCE SPECIALIST [facility] ABS. LYMPHOCYTES 3.31 0.80 - 4.70 x10'3/uL 10/24/2024 5:50 AM [facility] ABS. MONOCYTES 0.66 0.00 - 1.50 x10'3/uL 10/24/2024 5:50 AM WORKFORCE SPECIALIST [facility] ABS. EOSINOPHILS 0.13 0.00 - 0.40 x10'3/uL 10/24/2024 5:50 AM WORKFORCE SPECIALIST [facility] ABS. BASOPHILS 0.08 0.00 - 0.20 x10'3/uL 10/24/2024 5:50 AM [facility] ABS. IMMATURE GRANULOCYTES 0.06(H) 0.00 - 0.03 x10'3/uL 10/24/2024 5:50 AM [facility] ABS. NUCLEATED RBC'S 0.00 0.00 - 0.01 x10'3/uL 10/24/2024 5:50 AM [facility] 10/24/2024 5:35 AM WORKFORCE SPECIALIST us José Miguel Lowe MD LABORATORY Final Result [facility] [place] [address], * PHOSPHORUS, INORGANIC PHOSPHATE (10/24/2024 5:35 AM WORKFORCE SPECIALIST) Only the most recent of2 resultswithin the time period is included. PHOSPHORUS 4.2 2.6 - 4.7 MG/DL 10/24/2024 6:23 AM WORKFORCE SPECIALIST [facility] 10/24/2024 5:35 AM WORKFORCE SPECIALIST us José Miguel Lowe MD LABORATORY Final Result Performing Organization Address [facility] [place] [address], * MAGNESIUM (10/24/2024 5:35 AM WORKFORCE SPECIALIST) Only the most recent of3 resultswithin the time period is included. MAGNESIUM 1.9 1.8 - 2.4 MG/DL 10/24/2024 6:23 AM WORKFORCE SPECIALIST [facility] 10/24/2024 5:35 AM WORKFORCE SPECIALIST us José Miguel Lowe MD LABORATORY Final Result Performing Organization Address [facility] [place] [address], * (ABNORMAL) POCT glucose (10/23/2024 8:53 AM WORKFORCE SPECIALIST) GLUCOSE POC 135(H) 70 - 99 MG/DL 10/23/2024 8:55 AM WORKFORCE SPECIALIST [facility] 10/23/2024 8:53 AM WORKFORCE SPECIALIST us Sridevi Eugene DO POCT ORDERABLES - DEVICE Final Result Performing Organization Address [facility] [place] [address], * CT ABD+PEL WO CON (10/23/2024 12:08 AM WORKFORCE SPECIALIST) Anatomical Region Laterality Modality Abdomen Computed Tomogra phy 10/23/2024 12:1 5 AM WORKFORCE SPECIALIST Impressions 10/23/2024 12:20 AM WORKFORCE SPECIALIST IMPRESSION: 1. ABNORMAL TREE-IN-BUD OPACITIES ARE [...] 10/23/2024 12:15 AM Narrative 10/23/2024 12:20 AM WORKFORCE SPECIALIST [address] [place] [address] PATIENT NAME: MRS. DEANNA PARTIDA EXAM: CT [...] Procedure Note Tr Watters MD - 10/23/2024 [facility] [address] [place] [address] PATIENT NAME: MRS. DEANNA PARTIDA EXAM: CT abdomen/pelvis without contrast DATE OF EXAM: 10/23/2024 COMPARISON EXAM: None INDICATION: Nausea and vomiting TECHNIQUE: Axial images obtained from xiphoid process to pubic symphysiswithout contrast using low-dose CT technique. Sagittal and coronalreconstruction. FINDINGS: CT ABDOMEN: Visualized portions of the lung bases demonstrate [id number] opacities in the right lung base right [...] * XR CHEST PORTABLE (10/22/2024 11:17 PM WORKFORCE SPECIALIST) Anatomical Region Laterality Modality Chest Radiographic Dee ging 10/22/2024 11:2 4 PM WORKFORCE SPECIALIST Impressions 10/22/2024 11:25 PM WORKFORCE SPECIALIST IMPRESSION: No radiographic evidence of an acute cardiopulmonary abnormality. Referred By: Interpreted By: Jaxon Delgado MD, 10/22/2024 11:24 PM Narrative 10/22/2024 11:25 PM WORKFORCE SPECIALIST [address] [place] [address] EXAMINATION: XR CHEST PORTABLE, 10/22/2024 11:25 PM [...] Procedure Note Jaxon Delgado MD - 10/22/[address] [place] [address] EXAMINATION: XR CHEST PORTABLE, 10/22/2024 11:25 PM [...] * ECG 12 lead (10/22/2024 10:25 PM WORKFORCE SPECIALIST) 10/22/2024 10:2 5 PM WORKFORCE SPECIALIST Narrative [facility] - 10/23/2024 10:02 AM WORKFORCE SPECIALIST 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[id number] Requested By: SRIDEVI EUGENE Order Number: [id number] Reading : Patel Barraza Measurements Intervals [place] Rate: 93 P: 25 IN: 176 QRS: -4 QRSD: 147 T: 132 QT: 392 QTc: 489 Interpretive Statements ELECTRONIC VENTRICULAR PACEMAKER ABNORMAL RHYTHM ECG FORCE SPECIALIST Sridevi Eugene DO ECG ORDERABLES Final Result [facility] * LACTIC ACID W REFLEX (SEPSIS) (10/22/2024 10:25 PM WORKFORCE SPECIALIST) LACTIC ACID VENOUS 1.4 0.4 - 2.0 MMOL/L 10/23/2024 12:22 AM WORKFORCE SPECIALIST [facility] 10/22/2024 10:2 5 PM WORKFORCE SPECIALIST us Sridevi Eugene DO LABORATORY Final Result Performing Organization Address City/[facility]/ZIP Co de Phone Number [facility] [address] [place] [address], * (ABNORMAL) TROPONIN, QUANT (10/22/2024 10:25 PM WORKFORCE SPECIALIST) TROPONIN I HIGH SENSITIVITY 67(H) 0 - 51 ng/L 10/22/2024 11:02 PM WORKFORCE SPECIALIST [facility] 10/22/2024 10:2 5 PM WORKFORCE SPECIALIST us Sridevi Eugene DO LABORATORY Final Result Performing Organization Address [facility] Co de Phone Number [facility] [address] [place] [address], * THYROID STIM HORMONE, TSH (10/22/2024 10:25 PM WORKFORCE SPECIALIST) TSH 0.369 0.358 - 3.740 uIU/ML 10/22/2024 11:02 PM WORKFORCE SPECIALIST [facility] Comment: ASSAY PERFORMED BY CHEMILUMINESCENT IMMUNOASSAY METHODOLOGY USING SIEMENS DIMENSION REAGENT. PATIENT RESULTS DETERMINED BY ASSAYS FROM DIFFERENT MANUFACTURERS AND/OR BY DIFFERENT METHODS MAY NOT BE COMPARABLE. 10/22/2024 10:2 5 PM WORKFORCE SPECIALIST us Sridevi Eugene DO LABORATORY Final Result Performing Organization Address City/[facility]/ZIP Co de Phone Number [facility] [address] [place] [address], [place] [phone] * LIPASE (10/22/2024 10:25 PM WORKFORCE SPECIALIST) LIPASE 25 16 - 77 UNITS/L 10/22/2024 11:02 PM WORKFORCE SPECIALIST [facility] 10/22/2024 10:2 5 PM WORKFORCE SPECIALIST us Sridevi Eugene DO LABORATORY Final Result Performing Organization Address City/State/[facility] Co de Phone Number [facility] [address] [place] [address], * (ABNORMAL) SALICYLATE (10/22/2024 10:25 PM WORKFORCE SPECIALIST) SALICYLATES 0.6(L) 2.8 - 20.0 MG/DL 10/22/2024 11:02 PM WORKFORCE SPECIALIST [facility] 10/22/2024 10:2 5 PM WORKFORCE SPECIALIST us Sridevi Eugene DO LABORATORY Final Result Performing Organization Address [facility] Co de Phone Number [facility] [address] [place] [address], * ETHANOL (10/22/2024 10:25 PM WORKFORCE SPECIALIST) ALCOHOL S/P/B <0.003 <0.003 G/DL 10/22/2024 11:02 PM WORKFORCE SPECIALIST [facility] 10/22/2024 10:2 5 PM WORKFORCE SPECIALIST us Sridevi Eugene DO LABORATORY Final Result Performing Organization Address [facility] Co de Phone Number [facility] [address] [place] [address], * (ABNORMAL) ACETAMINOPHEN (10/22/2024 10:25 PM WORKFORCE SPECIALIST) ACETAMINOPHEN S/P/B 0.0(L) 10.0 - 30.0 MCG/ML 10/22/2024 11:02 PM WORKFORCE SPECIALIST [facility] 10/22/2024 10:2 5 PM WORKFORCE SPECIALIST us Sridevi Eugene DO LABORATORY Final Result Performing Organization Address [facility] Co de Phone Number [facility] [address] [place] [id number], * CORONAVIRUS (COVID-19) ANTIGEN (10/22/2024 10:00 PM WORKFORCE SPECIALIST) CORONAVIRUS ANTIGEN [place] NEGATIVE NEGATIVE 10/22/2024 10:40 PM WORKFORCE SPECIALIST [facility] Comment: NEGATIVE RESULTS DO [...] LABORATORIES. SPECIMEN TYPE NASAL 10/22/2024 10:12 PM WORKFORCE SPECIALIST [facility] NASAL NASAL STRUCTURE / Unknown 10/22/2024 10:00 PM WORKFORCE SPECIALIST Sridevi Eugene DO MICROBIOLOGY - GENERAL ORDERABL ES Final Result [facility] [address] [place] [address], * DRUG SCREEN RAPID (10/22/2024 10:00 PM WORKFORCE SPECIALIST) CANNABINOIDS SCREEN (U) NEGATIVE NEGATIVE 10/22/2024 10:30 PM WORKFORCE SPECIALIST [facility] PHENCYCLIDINE PCP (U) NEGATIVE NEGATIVE 10/22/2024 10:30 PM WORKFORCE SPECIALIST [facility] COCAINE METABOLITES (U) NEGATIVE NEGATIVE 10/22/2024 10:30 PM WORKFORCE SPECIALIST [facility] METHAMPHETAMINE SCREEN (U) NEGATIVE NEGATIVE 10/22/2024 10:30 PM WORKFORCE SPECIALIST [facility] OPIATE SCREEN (U) NEGATIVE NEGATIVE 025 10:30 PM WORKFORCE SPECIALIST [facility] AMPHETAMINE SCREEN (U) NEGATIVE NEGATIVE 10/22/2024 10:30 PM WORKFORCE SPECIALIST [facility] BENZODIAZEPINES SCREEN (U) NEGATIVE NEGATIVE 10/22/2024 10:30 PM WORKFORCE SPECIALIST [facility] TRICYCLIC ANTIDEPRESSANT SCREEN (U) NEGATIVE NEGATIVE 10/22/2024 10:30 PM WORKFORCE SPECIALIST [facility] METHADONE (U) NEGATIVE NEGATIVE 10/22/2024 10:30 PM WORKFORCE SPECIALIST [facility] BARBITURATES SCREEN (U) NEGATIVE NEGATIVE 10/22/2024 10:30 PM WORKFORCE SPECIALIST [facility] OXYCODONE SCREEN (U) NEGATIVE NEGATIVE 10/22/2024 10:30 PM WORKFORCE SPECIALIST [facility] URINE TOX COMMENT THIS TEST METHODOLOGY IS DESIGNED AND OFFERED A RAPID TURNAROUND, QUALITATIVE SCREENING PROCEDURE TO AID IN THE IMMEDIATE MEDICAL ASSESSMENT OF PATIENTS SUSPECTED OF SUBSTANCE ABUSE. 10/22/2024 10:12 PM WORKFORCE SPECIALIST [facility] Comment: CLINICAL CONSIDERATION AND PROFESSIONAL JUDGMENT MUST BE APPLIED TO ANY DRUG OF ABUSE TEST RESULT, BOTH POSITIVE AND NEGATIVE. CONFIRMATORY QUANTITATIVE RESULTS ARE AVAILABLE THROUGH OUR [facility]FER[facility]. URINE SPECIMEN / Unknown 10/22/2024 10:00 PM WORKFORCE SPECIALIST us Sridevi Eugene DO URINE ORDERABLES Final Result Performing Organization Address [facility] Co de Phone Number [facility] [address] [place] [address], * INFLUENZA A & B (10/22/2024 10:00 PM WORKFORCE SPECIALIST) SPECIMEN TYPE (INFLUENZA) NASOPHARYNGEAL SWAB 10/22/2024 10:12 PM WORKFORCE SPECIALIST [facility] INFLUENZA A NEGATIVE NEGATIVE 10/22/2024 10:40 PM WORKFORCE SPECIALIST [facility] INFLUENZA B NEGATIVE NEGATIVE 10/22/2024 10:40 PM WORKFORCE SPECIALIST [facility] Comment: A NEGATIVE RESULT DOES NOT EXCLUDE INFLUENZA VIRUS INFECTION. IF INFLUENZA IS CIRCULATING IN YOUR COMMUNITY, A DIAGNOSIS OF INFLUENZA SHOULD BE CONSIDERED BASED ON A PATIENT'S CLINICAL PRESENTATION AND EMPIRIC ANTIVIRAL TREATMENT SHOULD BE CONSIDERED IF INDICATED. NASOPHARYNGEAL SWAB / Unknown 10/22/2024 10:00 PM WORKFORCE SPECIALIST us Sridevi Eugene DO MICROBIOLOGY - GENERAL ORDERABL ES Final Result Performing Organization Address [facility]/ZIP Co de Phone Number [facility] [address] [place] [address], * (ABNORMAL) URINALYSIS (10/22/2024 10:00 PM WORKFORCE SPECIALIST) COLOR (U) YELLOW 10/22/2024 10:35 PM [facility] TRANSPARENCY CLEAR 10/22/2024 10:35 PM [facility] SPECIFIC GRAVITY (U) 1.025 1.000 - 1.025 10/22/2024 10:35 PM [facility] U PH 7.5 5.0 - 8.0 10/22/2024 10:35 PM [facility] LEUKOCYTES (U) NEGATIVE NEGATIVE 10/22/2024 10:35 PM [facility] NITRITES NEGATIVE NEGATIVE 10/22/2024 10:35 PM [facility] PROTEIN RANDOM (U) 3+(A) NEGATIVE 10/22/2024 10:35 PM [facility] GLUCOSE (U) 2+(A) NEGATIVE 10/22/2024 10:35 PM [facility] KETONES MG/DL (U) TRACE(A) NEGATIVE 10/22/2024 10:35 PM [facility] UROBILINOGEN 0.2 <1.0 EU/DL 10/22/2024 10:35 PM [facility] BILIRUBIN (U) NEGATIVE NEGATIVE 10/22/2024 10:35 PM [facility] BLOOD (U) TRACE(A) NEGATIVE 10/22/2024 10:35 PM [facility] WBC/HPF 0-5 0 - 5 /HPF 10/22/2024 10:35 PM [facility] RBC/HPF 0-5 0 - 5 /HPF 10/22/2024 10:35 PM [facility] EPI/LPF FEW /LPF 10/22/2024 10:35 PM [facility] BACTERIA (U) 1+ /HPF 10/22/2024 10:35 PM [facility] MUCUS PRESENT 10/22/2024 10:35 PM [facility] URINE SPECIMEN OBTAINED BY CLEAN CATCH PROCEDURE / Unknown 10/22/2024 10:00 PM WORKFORCE SPECIALIST us Sridevi Eugene DO URINE ORDERABLES Final Result [facility] [address] [place] [address], from Last 3 Months Insurance MEDICARE PART A MEDICAID [facility] * Guarantor: Deanna Partida Account Type Relation to Patient Date of Phone Billing Address Aly Norman B[address] Self 1965 [address] [place] [address] Advance Directives Documents on File Type Date Recorded 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
[2024-12-20 22:35] LABS: Hematocrit 28.1 % (37.0-47.0); Hemoglobin 8.5 g/dL (12.0-15.0); Mean Corpuscular HGB Conc 30.2 g/dl (32-36); Mean Corpuscular Hemoglobin 28.8 pg (26-34); Mean Corpuscular Volume 95.3 fl (80-100); Mean Platelet Volume 10.9 fl (7.4-10.4); Platelet Count Result 246 k/mm3 (150-375); Red Blood Count 2.95 M/mm3 (4.2-5.4); Red Cell Distribution Width 14.4 % (11.5-14.5); White Blood Count 12.9 K/mm3 (4.5-10.0)
[2024-12-20 22:42] LABS: Alanine Aminotransferase 14 U/L (6-35); Albumin Level 3.6 g/dL (3.5-5.1); Alkaline Phosphatase 101 U/L (38-126); Anion Gap 11 mmol/L (4-12); Aspartate Amino Transferase 22 U/L (14-36); Bilirubin,Total 0.5 mg/dL (0.2-1.3); Blood Urea Nitrogen 27 mg/dL (7-17); Calcium 8.3 mg/dL (8.4-10.2); Carbon Dioxide 20 mmol/L (22-30); Chloride 115 mmol/L (98-107); Estimated Glomerular Filt Rate 20; Glucose 92 mg/dL (65-110); Magnesium 1.9 mg/dL (1.6-2.3); Sodium 146 mmol/L (137-145)
[2024-12-20 22:45] LABS: Hemoglobin A1C 5.3 % (<5.7)
[2024-12-20 23:25] VITALS: BMI 20.6
[2024-12-20 23:41] VITALS: BP 147/90; PULSE 87; RESP 16; TEMP 36.3; O2SAT 99
[2024-12-21] MEDS: KCL 20 MEQ/SW 100 ML 100 ML 50 MEQ IVPB (00:38)
[2024-12-21] MEDS: DEXTROSE 5%/0.45% SOD CHL 500 ML 75 ML IV CONT (00:40)
[2024-12-21] MEDS: ONDANSETRON INJ 4 MG/2 ML VIAL IV PUSH (01:12)
[2024-12-21 05:03] LABS: Glucose Point of Care 114 mg/dl (65-105)
[2024-12-21 05:40] LABS: Hematocrit 28.3 % (37.0-47.0); Hemoglobin 8.8 g/dL (12.0-15.0); Mean Corpuscular HGB Conc 31.1 g/dl (32-36); Mean Corpuscular Hemoglobin 29.1 pg (26-34); Mean Corpuscular Volume 93.7 fl (80-100); Mean Platelet Volume 10.5 fl (7.4-10.4); Platelet Count Result 249 k/mm3 (150-375); Red Blood Count 3.02 M/mm3 (4.2-5.4); Red Cell Distribution Width 14.5 % (11.5-14.5); White Blood Count 13.8 K/mm3 (4.5-10.0)
[2024-12-21 05:50] LABS: Anion Gap 10 mmol/L (4-12); Blood Urea Nitrogen 26 mg/dL (7-17); Carbon Dioxide 18 mmol/L (22-30); Chloride 114 mmol/L (98-107); Estimated Glomerular Filt Rate 19; Glucose 125 mg/dL (65-110); Potassium 3.3 mmol/L (3.4-5.0); Sodium 142 mmol/L (137-145)
[2024-12-21 06:00] VITALS: BP 182/77; PULSE 84; RESP 18; TEMP 36.4; O2SAT 96
[2024-12-21 06:44] LABS: Glucose Point of Care 132 mg/dl (65-105)
[2024-12-21 06:49] LABS: Amphetamine Screen Urine Negative (Negative); Barbiturate Screen Urine Negative (Negative); Benzodiazepines Screen Urine Negative (Negative); Cannabinoid Screen Urine Negative (Negative); Cocaine Screen Urine Negative (Negative); Methadone Screen Urine Negative (Negative); Opiate Screen Urine Negative (Negative); Phencyclidine Screen Urine Negative (Negative)
--- NOTE | 2024-12-21 09:29 | P.PNIM_ITS ---
Progress Note: A&P Assessment and Plan (1) Hematemesis: Code(s): K92.0 - Hematemesis Status: Acute Assessment and Plan: * PUD vs gastritis vs neoplasm * Clear liquid diet * PRN Zofran * Continue home premeal Reglan for presumed diabetic gastroparesis * BID IV PPI * F/u CBC * GI consultation (2) Electrolyte abnormality: Code(s): E87.8 - Other disorders of electrolyte and fluid balance, not elsewhere classified Status: Acute Assessment and Plan: * Hypokalemia likely due to GI losses * 12/21 K 3.3 and repletion PO and IV ordered * Metabolic acidosis likely due to CKD, GI losses of bicarbonate * 12/21 Home NaHCO3 resumed (3) Chronic kidney disease, stage 4 (severe): Code(s): N18.4 - Chronic kidney disease, stage 4 (severe) Status: Acute Assessment and Plan: * Creatinine 12/19 3.14, 12/20 3.03, 12/21 2.57 (4) Insulin dependent type 2 diabetes mellitus: Code(s): E11.9 - Type 2 diabetes mellitus without complications; Z79.4 - USP (current) use of insulin Status: Acute Assessment and Plan: * A1c 5.3% * Due to poor PO intake 12/21 reduced Lantus to 10 U and utilize SSI prn (5) Heart failure, type unknown: Code(s): I50.9 - Heart failure, unspecified Status: Acute Assessment and Plan: * Clinically euvolemic to hypovolemic (6) Hypertension: Code(s): I10 - Essential (primary) hypertension Status: Acute Assessment and Plan: * 12/21 182/77, resumed home BP regimen (7) Anemia in chronic kidney disease (CKD): Code(s): N18.9 - Chronic kidney disease, unspecified; D63.1 - Anemia in chronic kidney disease Status: Acute Assessment and Plan: * 12/21 Hbg 8.8 (near baseline) (8) Mixed action and resting tremor: Code(s): R25.9 - Unspecified abnormal involuntary movements Status: Acute Assessment and Plan: * Seems worse at rest * Primary vs drug-induced Parkinsonism (Reglan) * Will defer to PCP re: further evaluation and treatment Subjective Date/time seen: 12/21/24 09:29 Interval history: Remains nauseated but tolerated clear liquids w/o emesis. No further diarrhea. Denied chest pain, sob, abd pain. Blind, so uncertain re: bleeding. Denied intake of any old or malodorous foods. Denied any ill contacts. Due to right BKA, she uses walker and wheelchair to move about her home. Resides with her . Review of Systems Review of Systems: All systems reviewed & are unremarkable except as noted in HPI and below Exam Narrative: HEENT: Sclerae nonicteric, pharyngeal mucosa pink and intact NECK: No JVD CHEST: Clear to auscultation. Normal effort HEART: NL S1/S2, regular, no murmur ABDOMEN: BS+, soft, nontender, no mass, no bruits EXTREMITIES: No cyanosis, edema, or clubbing NEUROLOGIC: CN intact and symmetric to inspection. Bilateral coarse rest tremor of upper extremities, right worse than left. MUSCULOSKELETAL: Tone and strength symmetric. Right BKA. PSYCH: Alert. Oriented to person, but not to place, thought year was 2023. Pleasant and cooperative. Objective Data Vital Signs Vital Signs: Vital Signs - 24 hr 12/20/24 23:41 12/21/24 06:00 Temperature 97.4 F L 97.6 F Pulse Rate 87 84 Respiratory Rate 16 18 Blood Pressure 147/90 H 182/77 H Pulse Oximetry 99 96 Intake/Output Intake/Output: Intake & Output 12/18/24 12/19/24 12/20/24 12/21/24 23:59 23:59 23:59 23:59 Intake Total 540 Output Total 800 Balance -260 Meds/Results Medications: Active Medications Generic Name Dose Route Start Last Admin Trade Name Freq PRN Reason Stop Dose Admin Acetaminophen 650 mg 12/20/24 21:51 Acetaminophen 325 Mg Tablet PO Q6H PRN Mild Pain (1-3) or Fever Amlodipine Besylate 10 mg 12/21/24 09:00 Amlodipine Besylate 10 Mg Tablet PO DAILY SHELIA Atorvastatin Calcium 80 mg 12/21/24 21:00 Atorvastatin 40 Mg Tablet PO HS [facility] Dextrose 12.5 gm 12/20/24 21:51 Dextrose 50% 25 Gm/50 Ml Syringe IV PUSH PRN PRN Hypoglycemia Protocol Dextrose 12.5 gm 12/21/24 09:20 Dextrose 50% 25 Gm/50 Ml Syringe IV PUSH PRN PRN Hypoglycemia Protocol Gabapentin 100 mg 12/21/24 09:00 Gabapentin 100 Mg Capsule PO BID [facility] Glucagon 1 mg 12/20/24 21:51 Glucagon For Inj 1 Mg Vial IM PRN PRN Hypoglycemia Protocol Glucagon 1 mg 12/21/24 09:20 Glucagon For Inj 1 Mg Vial IM PRN PRN Hypoglycemia Protocol Glucose 15 gm 12/20/24 21:51 Glucose Oral Gel 15 Gm Of Glucse In 37.5 Gm Tube PO PRN PRN Hypoglycemia Protocol Glucose 15 gm 12/21/24 09:20 Glucose Oral Gel 15 Gm Of Glucse In 37.5 Gm Tube PO PRN PRN Hypoglycemia Protocol Hydralazine HCl 10 mg 12/21/24 09:00 Hydralazine 10 Mg Tablet PO TID SHELIA Dextrose 1,000 mls @ 100 mls/hr 12/20/24 21:51 Dextrose 5% 1,000 Ml IVPB PRN PRN Hypoglycemia Protocol Dextrose 1,000 mls @ 100 mls/hr 12/21/24 09:20 Dextrose 5% 1,000 Ml IVPB PRN PRN Hypoglycemia Protocol Insulin Aspart 3 - 6 units 12/21/24 00:00 12/21/24 08:01 Insulin Aspart (*Bkc) 100 Units/Ml SUB-Q Not Given Q6HR [facility] Protocol Insulin Aspart 3 - 6 units 12/21/24 12:00 Insulin Aspart (*Bkc) 100 Units/Ml SUB-Q TIDWM [facility] Protocol Insulin Aspart 1 - 3 units 12/21/24 21:00 Insulin Aspart (*Bkc) 100 Units/Ml SUB-Q HS [facility] Protocol Insulin Glargine 10 units 12/21/24 21:00 Insulin Glargine (*Bkc) 100 Units/Ml 0.2 units/kg (10 units) SUB-Q HS [facility] Isosorbide Dinitrate 20 mg 12/21/24 09:00 Isosorbide Dinitrate 10 Mg Tablet PO BID [facility] Pantoprazole Sodium 40 mg 12/21/24 09:00 Pantoprazole Sodium Iv 40 Mg Vial IV PUSH Q12HR [facility] Potassium Chloride 20 meq 12/21/24 09:30 Potassium Chloride 20 Meq Er Tablet PO 12/21/24 09:31 ONCE ONE Sertraline HCl 50 mg 12/21/24 09:00 Sertraline Hcl 50 Mg Tablet PO QAM [facility] Sodium Bicarbonate 650 mg 12/21/24 17:00 Sodium Bicarbonate Tab 650 Mg Tablet PO BID [facility] Labs Labs: Laboratory Results - last 24 hr 12/20/24 12/21/24 12/21/24 22:22 01:29 05:32 WBC 12.9 H 13.8 H RBC 2.95 L 3.02 L Hgb 8.5 L 8.8 L Hct 28.1 L 28.3 L MCV 95.3 93.7 MCH 28.8 29.1 MCHC 30.2 L 31.1 L RDW 14.4 14.5 Plt Count 246 249 MPV 10.9 H 10.5 H Sodium 146 H 142 Potassium 3.0 L 3.3 L Chloride 115 H 114 H Carbon Dioxide 20 L 18 L Anion Gap 11 10 BUN 27 H D 26 H Creatinine 2.50 H 2.57 H Estim Creat Clear Calc Not Reportable Not Reportable Estimated GFR 20 L 19 L Glucose 92 125 H POC Capillary Glucose 114 H Hemoglobin A1c 5.3 Calcium 8.3 L 8.0 L Magnesium 1.9 Total Bilirubin 0.5 AST 22 ALT 14 Alkaline Phosphatase 101 Total Protein 7.0 Albumin 3.6 Urine Opiates Screen Urine Methadone Screen Ur Barbiturates Screen Ur Phencyclidine Scrn Ur Amphetamine Screen U Benzodiazepines Scrn Urine Cocaine Screen U Cannabinoids Screen Blood Type A Negative Antibody Screen Negative 12/21/24 12/21/24 06:18 06:39 WBC RBC Hgb Hct MCV MCH MCHC RDW Plt Count MPV Sodium Potassium Chloride Carbon Dioxide Anion Gap BUN Creatinine Estim Creat Clear Calc Estimated GFR Glucose POC Capillary Glucose 132 H Hemoglobin A1c Calcium Magnesium Total Bilirubin AST ALT Alkaline Phosphatase Total Protein Albumin Urine Opiates Screen Negative Urine Methadone Screen Negative Ur Barbiturates Screen Negative Ur Phencyclidine Scrn Negative Ur Amphetamine Screen Negative U Benzodiazepines Scrn Negative Urine Cocaine Screen Negative U Cannabinoids Screen Negative Blood Type Antibody Screen
[2024-12-21] MEDS: PANTOPRAZOLE SODIUM IV 40 MG VIAL IV PUSH ×2 (10:26→22:01)
[2024-12-21] MEDS: GABAPENTIN 100 MG CAPSULE PO ×2 (10:27→17:52)
[2024-12-21] MEDS: SODIUM BICARBONATE TAB 650 MG TABLET 1300 MG PO ×2 (10:29→17:52)
[2024-12-21 10:30] VITALS: O2SAT 97
[2024-12-21] MEDS: hydrALAZINE 10 MG TABLET PO ×3 (10:30→17:52)
[2024-12-21] MEDS: SERTRALINE HCL 50 MG TABLET PO (10:30)
[2024-12-21] MEDS: amLODIPine BESYLATE 10 MG TABLET PO (10:30)
[2024-12-21] MEDS: ISOSORBIDE DINITRATE 10 MG TABLET 20 MG PO ×2 (10:31→17:52)
[2024-12-21] MEDS: LACTATED RINGERS 1,000 ML 50 ML IV CONT (10:38)
[2024-12-21 12:19] LABS: Glucose Point of Care 136 mg/dl (65-105)
[2024-12-21 13:14] VITALS: BP 109/52; PULSE 88; RESP 18; TEMP 36.3; O2SAT 97
[2024-12-21] MEDS: POTASSIUM CHLORIDE 20 MEQ ER TABLET PO (13:32)
--- NOTE | 2024-12-21 13:49 | WPDGICN ---
Assessment and Plan Assessment and plan (1) Coffee ground emesis: Code(s): K92.0 - Hematemesis Status: Acute Assessment and Plan: will assess with egd tomorrow and assess if esophagitis, tear, ulcer, etc apparently history of self-induced vomiting (2) Intractable vomiting with nausea: Code(s): R11.2 - Nausea with vomiting, unspecified Status: Acute Assessment and Plan: antiemetics prn (3) Acute on chronic kidney failure: Qualifiers: Acute renal failure type: unspecified Chronic kidney disease stage: unspecified stage Qualified Code(s): N17.9 - Acute kidney failure, unspecified; N18.9 - Chronic kidney disease, unspecified Code(s): N17.9 - Acute kidney failure, unspecified; N18.9 - Chronic kidney disease, unspecified Status: Acute Assessment and Plan: improved and close to baseline (4) Anemia in chronic kidney disease (CKD): Code(s): N18.9 - Chronic kidney disease, unspecified; D63.1 - Anemia in chronic kidney disease Status: Acute Assessment and Plan: multifactorial will monitor (5) Hypokalemia: Code(s): E87.6 - Hypokalemia Status: Acute Assessment and Plan: treated (6) Diabetes mellitus: Qualifiers: Diabetes mellitus complication status: with other specified complication Diabetes mellitus nursing home insulin use: unspecified 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 Diabetes mellitus type: type 2 Qualified Code(s): E11.69 - Type 2 diabetes mellitus with other specified complication Code(s): E11.9 - Type 2 diabetes mellitus without complications Status: Acute (7) CHF (congestive heart failure): Code(s): I50.9 - Heart failure, unspecified Status: Chronic GI Consult Note Consult date/time: 12/21/24 13:49 Reason for consult: coffee ground emesis HPI: Deanna Partida is a 59 year old female history of gastroesophageal reflux disease, chronic kidney disease stage 4 with anemia of chronic kidney disease (hgb ~ 10), insulin-dependent type 2 diabetes mellitus, hypertension, congestive heart failure and Rt BKA. She was directly admitted to the medical floor from [facility] for coffee ground emesis. She is also blind and poor historian. She originally was admitted to the hospital 2 days prior with dehydration after one-week history of nausea, vomiting, and mild diarrhea. CT scan at that time showed no acute abnormalities and noted a small hiatal hernia. Her kidney function improved with IV fluid. Yesterday staff noted coffee ground in emesis. Also I just learned from nurse that her mentioned that patient has history of self-induced vomiting. Review of Systems Constitutional: Constitutional: Denies chills Eyes: Comments: blind ENT: Reports Normal hearing present Cardiovascular: Cardiovascular: Denies chest pain Respiratory: Respiratory: Denies cough Gastrointestinal: Gastrointestinal: Reports nausea and Reports vomiting Genitourinary: Genitourinary: Denies pelvic pain Musculoskeletal: Comments: rt bka Integumentary/Breasts: Skin/Breast: Denies rash Neurologic: Denies Abnormal speech present Psychiatric: Psychiatric: Reports anxiety [facility] Past Medical History Medical History (Updated 12/21/24 @ 13:54 by Elroy Baca MD) Coffee ground emesis Insulin dependent type 2 diabetes mellitus Chronic kidney disease, stage 4 (severe) 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 Code status: Full code. Smoking status: Never smoker Second hand tobacco smoke exposure: No Additional smoking assessment comments: Per patient her spouse smokes in the home. Alcohol intake: never Substance use: never Substance use type: does not use Do You Feel Safe in your Home?: Yes Lack of Transportation: No Lack of Food: Never True Current Housing: I Have Housing Concerned About Future Housing: No Difficulty Paying Gas/Electric Bills: No Difficulty Paying for Meds: No Currently Unemployed: No Education: Decline to Answer Difficulty w/ Childcare or Family Care: No Living arrangements: with family Additional living arrangements comments: Lives with in [place]. They have 2 grown children. Occupation/Education: retired Additional occupation/education comments: Was in the [employer]. Gender identity (if verbalized by the patient): Female Sexual Orientation (if Verbalized by the Patient): Straight or Heterosexual Spiritual care concerns: No Agree to blood products: Yes Meds Home Medications and Allergies Home Medications ?Medication ?Instructions ?Recorded ?Confirmed ?Type insulin glargine 100 unit/mL 40 unit subcut DAILY 02/26/22 12/21/24 History subcutaneous cartridge amlodipine 10 mg tablet 10 mg PO DAILY 12/18/24 12/21/24 History aspirin 81 mg tablet,delayed 81 mg PO DAILY 12/18/24 12/21/24 History release (Adult Aspirin Regimen) atorvastatin 80 mg tablet (Lipitor) 80 mg PO HS 12/18/24 12/21/24 History bumetanide 1 mg tablet 1 mg PO DAILY 12/18/24 12/21/24 History darbepoetin jeffrey-albumin 40 mcg/mL 40 mcg subcut MONTHLY PRN low hgb 12/18/24 12/21/24 History in albumin injection famotidine 40 mg tablet 40 mg PO BID 12/18/24 12/21/24 History folic acid 1 mg tablet 1 mg PO DAILY 12/18/24 12/21/24 History gabapentin 100 mg capsule 100 mg PO BID 12/18/24 12/21/24 History hydralazine 10 mg tablet 10 mg PO TID 12/18/24 12/21/24 History isosorbide dinitrate 10 mg tablet 20 mg PO BID 12/18/24 12/21/24 History metoclopramide HCl 10 mg tablet 10 mg PO TIDWMEAL 12/18/24 12/21/24 History sertraline 50 mg tablet 50 mg PO Q24H 12/18/24 12/21/24 History sodium bicarbonate 650 mg tablet 650 mg PO BID 12/18/24 12/21/24 History Allergies Allergy/AdvReac Type Severity Reaction Status Date / Time No Known Allergies Allergy Unknown Verified 12/18/24 17:52 Vital Signs Vital Signs - 24 hr 12/20/24 23:41 12/21/24 06:00 12/21/24 13:14 Temperature 97.4 F L 97.6 F 97.4 F L Pulse Rate 87 84 88 Respiratory Rate 16 18 18 Blood Pressure 147/90 H 182/77 H 109/52 L Pulse Oximetry 99 96 97 Exam Const: General: comfortable and no acute distress Other: chronically ill appearing HENMT: Face/Nose/Sinus: Normal nares present Eyes: Other: blind Neck: Neck: supple Resp: Auscultation: clear to auscultation bilaterally Cardio: Rate: regular rate Rhythm: regular rhythm GI: Inspection: non-distended GI Palp: Yes Soft to palpation and No Tenderness to palpation present (GI) Auscultation: normal bowel sounds Skin: General skin exam: normal color Neuro: Speech: normal speech Extrem: Other: Rt BKA Psych: Mental Status: mental status grossly normal Results Labs 12/21/24 05:32 12/21/24 05:32 Labs: Short CBC 12/20/24 12/21/24 Range/Units 22:22 05:32 WBC 12.9 H 13.8 H (4.5-10.0) K/mm3 Hgb 8.5 L 8.8 L (12.0-15.0) g/dL Hct 28.1 L 28.3 L (37.0-47.0) % Plt Count 246 249 (150-375) k/mm3 BMP 12/20/24 12/21/24 22:22 05:32 Sodium 146 H 142 Potassium 3.0 L 3.3 L Chloride 115 H 114 H Carbon Dioxide 20 L 18 L BUN 27 H D 26 H Creatinine 2.50 H 2.57 H Glucose 92 125 H Calcium 8.3 L 8.0 L Liver Function 12/20/24 Range/Units 22:22 Total Bilirubin 0.5 (0.2-1.3) mg/dL AST 22 (14-36) U/L ALT 14 (6-35) U/L Alkaline Phosphatase 101 (38-126) U/L Albumin 3.6 (3.5-5.1) g/dL
[2024-12-21 16:58] LABS: Glucose Point of Care 135 mg/dl (65-105)
[2024-12-21] MEDS: ATORVASTATIN 40 MG TABLET 80 MG PO (22:02)
[2024-12-21 22:20] VITALS: BP 123/59; PULSE 81; RESP 18; TEMP 36.1; O2SAT 100
[2024-12-22] VITALS (9 sets, daily range): BP systolic 78–162; BP diastolic 43–94; PULSE 78–91; RESP 16–24; TEMP 36.2–37.1; O2SAT 99–100
[2024-12-22 03:00] LABS: Glucose Point of Care 158 mg/dl (65-105)
[2024-12-22 05:38] LABS: Hemoglobin 8.4 g/dL (12.0-15.0); Mean Corpuscular HGB Conc 31.1 g/dl (32-36); Mean Corpuscular Hemoglobin 28.7 pg (26-34); Mean Corpuscular Volume 92.2 fl (80-100); Mean Platelet Volume 10.9 fl (7.4-10.4); Platelet Count Result 234 k/mm3 (150-375); Red Blood Count 2.93 M/mm3 (4.2-5.4); White Blood Count 11.1 K/mm3 (4.5-10.0)
[2024-12-22 05:50] LABS: Albumin Level 3.2 g/dL (3.5-5.1); Anion Gap 8 mmol/L (4-12); Blood Urea Nitrogen 25 mg/dL (7-17); Carbon Dioxide 20 mmol/L (22-30); Chloride 108 mmol/L (98-107); Estimated Glomerular Filt Rate 18; Glucose 100 mg/dL (65-110); Phosphorus 3.1 mg/dL (2.5-4.5); Potassium 4.1 mmol/L (3.4-5.0); Sodium 136 mmol/L (137-145)
[2024-12-22] MEDS: LACTATED RINGERS 1,000 ML 50 ML IV CONT (06:02)
[2024-12-22 08:04] LABS: Glucose Point of Care 109 mg/dl (65-105)
[2024-12-22] MEDS: SERTRALINE HCL 50 MG TABLET PO (09:36)
[2024-12-22] MEDS: PANTOPRAZOLE SODIUM IV 40 MG VIAL IV PUSH ×2 (09:36→20:51)
[2024-12-22] MEDS: hydrALAZINE 10 MG TABLET PO ×3 (09:36→18:07)
[2024-12-22] MEDS: ISOSORBIDE DINITRATE 10 MG TABLET 20 MG PO ×2 (09:36→18:07)
[2024-12-22] MEDS: amLODIPine BESYLATE 10 MG TABLET PO (09:36)
--- NOTE | 2024-12-22 10:40 | P.CDI_ITS ---
CDI Query Clarification Request Please specify type and acuity of heart failure if known. * Acute * Chronic * Acute on Chronic * Unknown * Systolic * Diastolic * Combined Systolic and Diastolic * Unknown The medical chart reflects the following: (6) CHF (congestive heart failure): Code(s): I50.9 - Heart failure, unspecified Status: Acute Assessment and Plan: * Will hold Bumex due to dehydration * No echo to review BNP 12/20: 24,013 <Sharonda Rangel RN - Last Filed: 12/22/24 10:42> Provider Comments Chronic Unknown type <Noe Toledo MD - Last Filed: 12/23/24 16:15>
--- NOTE | 2024-12-22 10:40 | WPDCDIQUERY2 ---
CDI Query Clarification Request Please specify type and acuity of heart failure if known. Acute Chronic Acute on Chronic Unknown Systolic Diastolic Combined Systolic and Diastolic Unknown The medical chart reflects the following: (6) CHF (congestive heart failure): Code(s): I50.9 - Heart failure, unspecified Status: Acute Assessment and Plan: Will hold Bumex due to dehydration No echo to review BNP 12/20: 24,013 <Sharonda Rangel RN - Last Filed: 12/22/24 10:42> Provider Comments Chronic Unknown type <Noe Toledo MD - Last Filed: 12/23/24 16:15>
--- NOTE | 2024-12-22 11:09 | P.PNIM_ITS ---
Progress Note: A&P Assessment and Plan (1) Hematemesis: Code(s): K92.0 - Hematemesis Status: Acute Assessment and Plan: * PUD vs gastritis vs neoplasm * Clear liquid diet currently NPO for EGD * PRN Zofran * Continue home premeal Reglan for presumed diabetic gastroparesis * BID IV PPI * H&H stable * GI consultation appreciate the recommendations (2) Electrolyte abnormality: Code(s): E87.8 - Other disorders of electrolyte and fluid balance, not elsewhere classified Status: Acute Assessment and Plan: * Hypokalemia likely due to GI losses * Replace and monitor * Metabolic acidosis likely due to CKD, GI losses of bicarbonate * / Home NaHCO3 resumed (3) Chronic kidney disease, stage 4 (severe): Code(s): N18.4 - Chronic kidney disease, stage 4 (severe) Status: Acute Assessment and Plan: Creatinine around baseline 2-3 (4) Insulin dependent type 2 diabetes mellitus: Code(s): E11.9 - Type 2 diabetes mellitus without complications; Z79.4 - jail (current) use of insulin Status: Acute Assessment and Plan: * A1c 5.3% * Due to poor PO intake 5/ reduced Lantus to 10 U and utilize SSI prn (5) Heart failure, type unknown: Code(s): I50.9 - Heart failure, unspecified Status: Acute Assessment and Plan: * Clinically euvolemic to hypovolemic (6) Hypertension: Code(s): I10 - Essential (primary) hypertension Status: Acute Assessment and Plan: Continue home medication (7) Anemia in chronic kidney disease (CKD): Code(s): N18.9 - Chronic kidney disease, unspecified; D63.1 - Anemia in chronic kidney disease Status: Acute Assessment and Plan: * 5/ Hbg 8.8 (near baseline) (8) Mixed action and resting tremor: Code(s): R25.9 - Unspecified abnormal involuntary movements Status: Acute Assessment and Plan: * Seems worse at rest * Primary vs drug-induced Parkinsonism (Reglan) * Will defer to PCP re: further evaluation and treatment Subjective Date/time seen: 12/22/24 11:09 Interval history: Complains of some nausea. No vomiting since yesterday. Denies any abdominal pain. No fever chills. NPO for EGD today. Review of Systems Review of Systems: All systems reviewed & are unremarkable except as noted in HPI and below Exam Narrative: HEENT: Sclerae nonicteric, pharyngeal mucosa pink and intact NECK: No JVD CHEST: Clear to auscultation. Normal effort HEART: NL S1/S2, regular, no murmur ABDOMEN: BS+, soft, nontender, no mass, no bruits EXTREMITIES: No cyanosis, edema, or clubbing NEUROLOGIC: CN intact and symmetric to inspection. Bilateral coarse rest tremor of upper extremities, right worse than left. MUSCULOSKELETAL: Tone and strength symmetric. Right BKA. PSYCH: Alert. Oriented to person, but not to place, thought year was 2023. Pleasant and cooperative. Objective Data Vital Signs Vital Signs: Vital Signs - 24 hr 12/21/24 13:14 12/21/24 22:20 12/22/24 06:00 Temperature 97.4 F L 97.0 F L 97.1 F L Pulse Rate 88 81 81 Respiratory Rate 18 18 18 Blood Pressure 109/52 L 123/59 L 162/71 H Pulse Oximetry 97 100 100 Intake/Output Intake/Output: Intake & Output 12/19/24 12/20/24 12/21/24 12/22/24 23:59 23:59 23:59 23:59 Intake Total 1540 970 Output Total 1100 1200 Balance 440 -230 Meds/Results Medications: Active Medications Generic Name Dose Route Start Last Admin Trade Name Freq PRN Reason Stop Dose Admin Acetaminophen 650 mg 12/20/24 21:51 Acetaminophen 325 Mg Tablet PO Q6H PRN Mild Pain (1-3) or Fever Amlodipine Besylate 10 mg 12/21/24 09:00 12/22/24 09:36 Amlodipine Besylate 10 Mg Tablet PO 10 mg DAILY SHELIA Administration Atorvastatin Calcium 80 mg 12/21/24 21:00 12/21/24 22:02 Atorvastatin 40 Mg Tablet PO 80 mg HS SHELIA Administration Dextrose 12.5 gm 12/21/24 09:20 Dextrose 50% 25 Gm/50 Ml Syringe IV PUSH PRN PRN Hypoglycemia Protocol Gabapentin 100 mg 12/21/24 09:00 12/22/24 09:39 Gabapentin 100 Mg Capsule PO Not Given BID SHELIA Glucagon 1 mg 12/21/24 09:20 Glucagon For Inj 1 Mg Vial IM PRN PRN Hypoglycemia Protocol Glucose 15 gm 12/21/24 09:20 Glucose Oral Gel 15 Gm Of Glucse In 37.5 Gm Tube PO PRN PRN Hypoglycemia Protocol Hydralazine HCl 10 mg 12/21/24 09:00 12/22/24 09:36 Hydralazine 10 Mg Tablet PO 10 mg TID SHELIA Administration Dextrose 1,000 mls @ 100 mls/hr 12/21/24 09:20 Dextrose 5% 1,000 Ml IVPB PRN PRN Hypoglycemia Protocol Lactated Ringer's 1,000 mls @ 50 mls/hr 12/21/24 09:55 12/22/24 06:02 Lr - Lactated Ringers Iv IV CONT 50 mls/hr .Q20H SHELIA Administration Insulin Aspart 3 - 6 units 12/21/24 12:00 12/22/24 09:29 Insulin Aspart (*Bkc) 100 Units/Ml SUB-Q Not Given TIDWM [facility] Protocol Insulin Aspart 1 - 3 units 12/21/24 21:00 12/21/24 21:59 Insulin Aspart (*Bkc) 100 Units/Ml SUB-Q Not Given HS [facility] Protocol Insulin Glargine 10 units 12/21/24 21:00 12/21/24 22:01 Insulin Glargine (*Bkc) 100 Units/Ml 0.2 units/kg (10 units) Not Given SUB-Q HS [facility] Isosorbide Dinitrate 20 mg 12/21/24 09:00 12/22/24 09:36 Isosorbide Dinitrate 10 Mg Tablet PO 20 mg BID SHELIA Administration Pantoprazole Sodium 40 mg 12/21/24 09:00 12/22/24 09:36 Pantoprazole Sodium Iv 40 Mg Vial IV PUSH 40 mg Q12HR SHELIA Administration Sertraline HCl 50 mg 12/21/24 09:00 12/22/24 09:36 Sertraline Hcl 50 Mg Tablet PO 50 mg QAM SHELIA Administration Sodium Bicarbonate 1,300 mg 12/21/24 09:00 12/22/24 09:39 Sodium Bicarbonate Tab 650 Mg Tablet PO Not Given BID [facility] Labs Labs: Laboratory Results - last 24 hr 12/21/24 12/21/24 12/21/24 12:14 16:54 21:15 WBC RBC Hgb Hct MCV MCH MCHC RDW Plt Count MPV Sodium Potassium Chloride Carbon Dioxide Anion Gap BUN Creatinine Estim Creat Clear Calc Estimated GFR Glucose POC Capillary Glucose 136 H 135 H 158 H Calcium Phosphorus Albumin 12/22/24 12/22/24 04:56 08:01 WBC 11.1 H RBC 2.93 L Hgb 8.4 L Hct 27.0 L MCV 92.2 MCH 28.7 MCHC 31.1 L RDW 14.0 Plt Count 234 MPV 10.9 H Sodium 136 L Potassium 4.1 Chloride 108 H Carbon Dioxide 20 L Anion Gap 8 BUN 25 H Creatinine 2.66 H Estim Creat Clear Calc Not Reportable Estimated GFR 18 L Glucose 100 POC Capillary Glucose 109 H Calcium 8.0 L Phosphorus 3.1 Albumin 3.2 L
[2024-12-22 11:34] LABS: Glucose Point of Care 103 mg/dl (65-105)
--- NOTE | 2024-12-22 14:30 | P.PNAN_ITS ---
Anes - Initial Pre Proc Eval Procedure: Operation Date: 12/22/24 16:00 Proposed Procedures p Esophagogastroduodenoscopy - Elroy Baca MD Date/Time: 12/22/24 14:30 Surgeon: Aubrey Carrion MD Pre Op Diagnosis: Hematemesis Patient Data Age: 59 Gender: F Height: 1.5 m Weight: 52.6 kg Last Vital Signs Temp 98.7 F 12/22/24 14:00 Pulse 86 12/22/24 14:00 Resp 20 12/22/24 14:00 BP 119/52 L 12/22/24 14:00 Pulse Ox 99 12/22/24 14:00 O2 Del Method Room Air 12/21/24 10:30 Allergies Allergy/AdvReac Type Severity Reaction Status Date / Time No Known Allergies Allergy Unknown Verified 12/18/24 17:52 Home Medications ?Medication ?Instructions ?Recorded ?Confirmed ?Type insulin glargine 100 unit/mL 40 unit subcut DAILY 02/26/22 12/21/24 History subcutaneous cartridge amlodipine 10 mg tablet 10 mg PO DAILY 12/18/24 12/21/24 History aspirin 81 mg tablet,delayed 81 mg PO DAILY 12/18/24 12/21/24 History release (Adult Aspirin Regimen) atorvastatin 80 mg tablet (Lipitor) 80 mg PO HS 12/18/24 12/21/24 History bumetanide 1 mg tablet 1 mg PO DAILY 12/18/24 12/21/24 History darbepoetin jeffrey-albumin 40 mcg/mL 40 mcg subcut MONTHLY PRN low hgb 12/18/24 12/21/24 History in albumin injection famotidine 40 mg tablet 40 mg PO BID 12/18/24 12/21/24 History folic acid 1 mg tablet 1 mg PO DAILY 12/18/24 12/21/24 History gabapentin 100 mg capsule 100 mg PO BID 12/18/24 12/21/24 History hydralazine 10 mg tablet 10 mg PO TID 12/18/24 12/21/24 History isosorbide dinitrate 10 mg tablet 20 mg PO BID 12/18/24 12/21/24 History metoclopramide HCl 10 mg tablet 10 mg PO TIDWMEAL 12/18/24 12/21/24 History sertraline 50 mg tablet 50 mg PO Q24H 12/18/24 12/21/24 History sodium bicarbonate 650 mg tablet 650 mg PO BID 12/18/24 12/21/24 History Laboratory Tests 12/21/24 12/21/24 12/22/24 16:54 21:15 04:56 WBC 11.1 H K/mm3 (4.5-10.0) RBC 2.93 L M/mm3 (4.2-5.4) Hgb 8.4 L g/dL (12.0-15.0) Hct 27.0 L % (37.0-47.0) MCV 92.2 fl (80-100) MCH 28.7 pg (26-34) MCHC 31.1 L g/dl (32-36) RDW 14.0 % (11.5-14.5) Plt Count 234 k/mm3 (150-375) MPV 10.9 H fl (7.4-10.4) Sodium 136 L mmol/L (137-145) Potassium 4.1 mmol/L (3.4-5.0) Chloride 108 H mmol/L (98-107) Carbon Dioxide 20 L mmol/L (22-30) Anion Gap 8 mmol/L (4-12) BUN 25 H mg/dL (7-17) Creatinine 2.66 H mg/dL (0.7-1.0) Estim Creat Clear Calc Not Reportable Estimated GFR 18 L (59 - ) Glucose 100 mg/dL (65-110) POC Capillary Glucose 135 H mg/dl 158 H mg/dl (65-105) (65-105) Calcium 8.0 L mg/dL (8.4-10.2) Phosphorus 3.1 mg/dL (2.5-4.5) Albumin 3.2 L g/dL (3.5-5.1) 12/22/24 12/22/24 08:01 11:16 WBC RBC Hgb Hct MCV MCH MCHC RDW Plt Count MPV Sodium Potassium Chloride Carbon Dioxide Anion Gap BUN Creatinine Estim Creat Clear Calc Estimated GFR Glucose POC Capillary Glucose 109 H mg/dl 103 mg/dl (65-105) (65-105) Calcium Phosphorus Albumin Patient hx anesthesia problems: none Family hx anesthesia problems: none Results Review: All pre-operative results and documents have been reviewed as part of the pre- operative evaluation. 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 Code status: Full code. Smoking status: Never smoker Second hand tobacco smoke exposure: No Additional smoking assessment comments: Per patient her spouse smokes in the home. Alcohol intake: never Substance use: never Substance use type: does not use Do You Feel Safe in your Home?: Yes Lack of Transportation: No Lack of Food: Never True Current Housing: I Have Housing Concerned About Future Housing: No Difficulty Paying Gas/Electric Bills: No Difficulty Paying for Meds: No Currently Unemployed: No Education: Decline to Answer Difficulty w/ Childcare or Family Care: No Living arrangements: with family Additional living arrangements comments: Lives with in [place]. They have 2 grown children. Occupation/Education: retired Additional occupation/education comments: Was in the [employer]. Gender identity (if verbalized by the patient): Female Sexual Orientation (if Verbalized by the Patient): Straight or Heterosexual Spiritual care concerns: No Agree to blood products: Yes Anes - Eval Final PreProcedure Day of Procedure 12/22/24 14:30 Patient weight: normal Lungs: normal air movement Airway: Mallampati scale class II and special considerations poor dentition Neurological: alert and oriented Last oral intake: >/= 8 hours ASA classification: IV Emergent: no Anesthetic plan: proceed Anesthesia type and monitoring: general GIVS and standard monitoring Results Review: All pre-operative results and documents have been reviewed as part of the pre- operative evaluation. CKD stage 4, DM, HTN, hyperlipidemia, anemia now for EGD. Pt w many comorbid conditions, currently on room air and euvolemic. Informed Consent: The patient's anesthetic plan and its attendant risks and benefits were discussed with the patient/family/POA. Questions were solicited and answers provided to the satisfaction of the patient/family/POA.
[2024-12-22 14:35] LABS: Glucose Point of Care 90 mg/dl (65-105)
[2024-12-22] MEDS: SODIUM CHLORIDE 0.9% IV 500 ML 10 ML IV CONT (14:42)
[2024-12-22 15:45] LABS: Glucose Point of Care 92 mg/dl (65-105)
[2024-12-22 16:35] LABS: Glucose Point of Care 91 mg/dl (65-105)
[2024-12-22] MEDS: GABAPENTIN 100 MG CAPSULE PO (18:07)
[2024-12-22] MEDS: SUCRALFATE SUSP 100 MG/ML 10 ML UDC 1000 MG PO (18:07)
[2024-12-22] MEDS: SODIUM BICARBONATE TAB 650 MG TABLET 1300 MG PO (18:08)
[2024-12-22] MEDS: ATORVASTATIN 40 MG TABLET 80 MG PO (20:51)
[2024-12-23 05:26] LABS: Glucose Point of Care 180 mg/dl (65-105)
[2024-12-23 05:57] LABS: Basophils Percent Auto 0.5 % (0.2-1.2); Eosinophils Absolute Auto 0.3 K/mm3 (0-0.3); Hemoglobin 7.9 g/dL (12.0-15.0); Immature Granulocyte Absolute 0.03 K/mm3 (0.00-0.031); Immature Granulocyte Percent A 0.4 % (0-0.5); Lymphocytes Absolute Auto 3.11 K/mm3 (0.9-3.2); Lymphocytes Percent Auto 37.9 % (18.3-44.2); Mean Corpuscular HGB Conc 30.4 g/dl (32-36); Mean Corpuscular Hemoglobin 28.5 pg (26-34); Mean Corpuscular Volume 93.9 fl (80-100); Monocytes Absolute Auto 0.7 K/mm3 (0.1-0.6); Monocytes Percent Auto 7.9 % (2.6-8.5); Neutrophils Absolute Auto 4.1 K/mm3 (1.3-6.7); Neutrophils Percent Auto 50.3 % (45.5-73.1); Platelet Count Result 235 k/mm3 (150-375); Red Blood Count 2.77 M/mm3 (4.2-5.4); White Blood Count 8.2 K/mm3 (4.5-10.0)
[2024-12-23 06:00] VITALS: BP 157/66; PULSE 82; RESP 18; TEMP 36.3; O2SAT 98
[2024-12-23 06:06] LABS: Alanine Aminotransferase 10 U/L (6-35); Albumin Level 2.8 g/dL (3.5-5.1); Alkaline Phosphatase 77 U/L (38-126); Anion Gap 6 mmol/L (4-12); Aspartate Amino Transferase 16 U/L (14-36); Bilirubin,Total 0.4 mg/dL (0.2-1.3); Blood Urea Nitrogen 26 mg/dL (7-17); Calcium 7.5 mg/dL (8.4-10.2); Carbon Dioxide 22 mmol/L (22-30); Chloride 109 mmol/L (98-107); Estimated Glomerular Filt Rate 17; Glucose 92 mg/dL (65-110); Magnesium 1.8 mg/dL (1.6-2.3); Phosphorus 3.1 mg/dL (2.5-4.5); Potassium 3.9 mmol/L (3.4-5.0); Sodium 137 mmol/L (137-145)
[2024-12-23] MEDS: SUCRALFATE SUSP 100 MG/ML 10 ML UDC 1000 MG PO ×3 (06:29→17:31)
--- NOTE | 2024-12-23 07:48 | WPDANESPN ---
Anes - Prog Note Post-Op Date/Time: 12/23/24 07:48 Cardiovascular status: normal Respiratory status: normal Airway patency: baseline Mental status: baseline Post-Op hydration status: normal Vital Signs: Last Vital Signs Temp 36.3 C L 12/23/24 06:00 Pulse 82 12/23/24 06:00 Resp 18 12/23/24 06:00 BP 157/66 H 12/23/24 06:00 Pulse Ox 98 12/23/24 06:00 O2 Del Method Room Air 12/22/24 20:00 Pain Score (VAS): 0 I/O: Intake & Output 12/22/24 12/22/24 12/23/24 15:59 23:59 07:59 Intake Total 0 360 500 Output Total 700 1100 Balance 0 -340 -600 Laboratory Tests 12/23/24 05:17 12/23/24 05:17 12/22/24 12/22/24 12/22/24 08:01 11:16 14:32 WBC RBC Hgb Hct MCV MCH MCHC RDW Plt Count MPV Immature Gran % (Auto) Neut % (Auto) Lymph % (Auto) [place] % (Auto) Eos % (Auto) Baso % (Auto) Lymph # (Auto) [place] # (Auto) Eos # (Auto) Baso # (Auto) Abs Immat Gran (auto) Absolute Neuts (auto) Absolute Nucleated RBC Nucleated RBC % Sodium Potassium Chloride Carbon Dioxide Anion Gap BUN Creatinine Estim Creat Clear Calc Estimated GFR Glucose POC Capillary Glucose 109 H 103 90 Calcium Phosphorus Magnesium Total Bilirubin AST ALT Alkaline Phosphatase Total Protein Albumin 12/22/24 12/22/24 12/22/24 15:42 16:13 20:35 WBC RBC Hgb Hct MCV MCH MCHC RDW Plt Count MPV Immature Gran % (Auto) Neut % (Auto) Lymph % (Auto) [place] % (Auto) Eos % (Auto) Baso % (Auto) Lymph # (Auto) [place] # (Auto) Eos # (Auto) Baso # (Auto) Abs Immat Gran (auto) Absolute Neuts (auto) Absolute Nucleated RBC Nucleated RBC % Sodium Potassium Chloride Carbon Dioxide Anion Gap BUN Creatinine Estim Creat Clear Calc Estimated GFR Glucose POC Capillary Glucose 92 91 180 H Calcium Phosphorus Magnesium Total Bilirubin AST ALT Alkaline Phosphatase Total Protein Albumin 12/23/24 05:17 WBC 8.2 RBC 2.77 L Hgb 7.9 L Hct 26.0 L MCV 93.9 MCH 28.5 MCHC 30.4 L RDW 14.0 Plt Count 235 MPV 11.0 H Immature Gran % (Auto) 0.4 Neut % (Auto) 50.3 Lymph % (Auto) 37.9 [place] % (Auto) 7.9 Eos % (Auto) 3.0 Baso % (Auto) 0.5 Lymph # (Auto) 3.11 [place] # (Auto) 0.7 H Eos # (Auto) 0.3 Baso # (Auto) 0.0 Abs Immat Gran (auto) 0.03 Absolute Neuts (auto) 4.1 Absolute Nucleated RBC 0.000 Nucleated RBC % 0.0 Sodium 137 Potassium 3.9 Chloride 109 H Carbon Dioxide 22 Anion Gap 6 BUN 26 H Creatinine 2.84 H Estim Creat Clear Calc Not Reportable Estimated GFR 17 L Glucose 92 POC Capillary Glucose Calcium 7.5 L Phosphorus 3.1 Magnesium 1.8 Total Bilirubin 0.4 AST 16 ALT 10 Alkaline Phosphatase 77 Total Protein 6.0 L Albumin 2.8 L Post-procedural complaints: none Patient Feedback: Patient satisfied with anesthetic care.
[2024-12-23 08:20] LABS: Glucose Point of Care 102 mg/dl (65-105)
[2024-12-23] MEDS: PANTOPRAZOLE SODIUM IV 40 MG VIAL IV PUSH (09:44)
[2024-12-23] MEDS: amLODIPine BESYLATE 10 MG TABLET PO (09:44)
[2024-12-23] MEDS: SERTRALINE HCL 50 MG TABLET PO (09:44)
[2024-12-23] MEDS: GABAPENTIN 100 MG CAPSULE PO ×2 (09:44→17:30)
[2024-12-23] MEDS: ISOSORBIDE DINITRATE 10 MG TABLET 20 MG PO ×2 (09:44→17:29)
[2024-12-23] MEDS: hydrALAZINE 10 MG TABLET PO ×3 (09:44→17:30)
[2024-12-23] MEDS: SODIUM BICARBONATE TAB 650 MG TABLET 1300 MG PO ×2 (09:44→17:29)
[2024-12-23 09:45] VITALS: O2SAT 98
--- NOTE | 2024-12-23 11:35 | P.PNIM_ITS ---
Progress Note: A&P Assessment and Plan (1) Hematemesis: Code(s): K92.0 - Hematemesis Status: Acute Assessment and Plan: * PUD vs gastritis vs neoplasm * Clear liquid diet currently NPO for EGD * PRN Zofran * Continue home premeal Reglan for presumed diabetic gastroparesis * BID IV PPI * H&H stable * GI consultation appreciate the recommendations Status post EGD with findings of reflux esophagitis 12/22/2024 On PPI added Carafate Also findings of hiatal hernia (2) Electrolyte abnormality: Code(s): E87.8 - Other disorders of electrolyte and fluid balance, not elsewhere classified Status: Acute Assessment and Plan: * Hypokalemia likely due to GI losses * Replace and monitor * Metabolic acidosis likely due to CKD, GI losses of bicarbonate * 12/21 Home NaHCO3 resumed (3) Chronic kidney disease, stage 4 (severe): Code(s): N18.4 - Chronic kidney disease, stage 4 (severe) Status: Acute Assessment and Plan: Creatinine around baseline 2-3 (4) Insulin dependent type 2 diabetes mellitus: Code(s): E11.9 - Type 2 diabetes mellitus without complications; Z79.4 - skilled nursing (current) use of insulin Status: Acute Assessment and Plan: * A1c 5.3% * Due to poor PO intake 5/ reduced Lantus to 10 U and utilize SSI prn (5) Heart failure, type unknown: Code(s): I50.9 - Heart failure, unspecified Status: Acute Assessment and Plan: * Clinically euvolemic to hypovolemic (6) Hypertension: Code(s): I10 - Essential (primary) hypertension Status: Acute Assessment and Plan: Continue home medication (7) Anemia in chronic kidney disease (CKD): Code(s): N18.9 - Chronic kidney disease, unspecified; D63.1 - Anemia in chronic kidney disease Status: Acute Assessment and Plan: * / Hbg 8.8 (near baseline) Continue to monitor H&H No further hematemesis (8) Mixed action and resting tremor: Code(s): R25.9 - Unspecified abnormal involuntary movements Status: Acute Assessment and Plan: * Seems worse at rest * Primary vs drug-induced Parkinsonism (Reglan) * Will defer to PCP re: further evaluation and treatment Plan Abnormal urine culture: UA is not suggestive of UTI however urine culture grew vancomycin resistant Enterococcus faecium. Will repeat UA and urine culture. Likely a contamination as patient asymptomatic. Will not treat with any antibiotics Disposition: PT OT to see Subjective Date/time seen: 12/23/24 11:35 Interval history: No overnight events. Abdominal pain nausea vomiting has improved. Labs reviewed. No urinary symptoms reported. Urine culture was reviewed. Review of Systems Review of Systems: All systems reviewed & are unremarkable except as noted in HPI and below Exam Narrative: HEENT: Sclerae nonicteric, pharyngeal mucosa pink and intact NECK: No JVD CHEST: Clear to auscultation. Normal effort HEART: NL S1/S2, regular, no murmur ABDOMEN: BS+, soft, nontender, no mass, no bruits EXTREMITIES: No cyanosis, edema, or clubbing NEUROLOGIC: CN intact and symmetric to inspection. Bilateral coarse rest tremor of upper extremities, right worse than left. MUSCULOSKELETAL: Tone and strength symmetric. Right BKA. PSYCH: Alert. Oriented to person, but not to place, thought year was 2023. Pleasant and cooperative. Objective Data Vital Signs Vital Signs: Vital Signs - 24 hr 12/22/24 14:00 12/22/24 14:39 12/22/24 15:23 Temperature 98.7 F 98.1 F Pulse Rate 86 91 78 Respiratory Rate 20 16 20 Blood Pressure 119/52 L 118/62 78/44 L Pulse Oximetry 99 100 99 Oxygen Delivery Room Air Room Air 12/22/24 15:33 12/22/24 15:43 12/22/24 16:53 Temperature 97.1 F L Pulse Rate 80 87 88 Respiratory Rate 19 24 H 18 Blood Pressure 88/46 L 123/66 142/94 H Pulse Oximetry 99 99 99 Oxygen Delivery Room Air Room Air 12/22/24 20:00 12/22/24 22:00 12/23/24 06:00 Temperature 97.1 F L 97.4 F L Pulse Rate 86 82 Respiratory Rate 18 18 Blood Pressure 109/43 L 157/66 H Pulse Oximetry 99 98 Oxygen Delivery Room Air Intake/Output Intake/Output: Intake & Output 12/20/24 12/21/24 12/22/24 12/23/24 23:59 23:59 23:59 23:59 Intake Total 1540 1330 680 Output Total 1100 1900 1310 Balance 823 -360 -081 Meds/Results Medications: Active Medications Generic Name Dose Route Start Last Admin Trade Name Freq PRN Reason Stop Dose Admin Acetaminophen 650 mg 12/20/24 21:51 Acetaminophen 325 Mg Tablet PO Q6H PRN Mild Pain (1-3) or Fever Amlodipine Besylate 10 mg 12/21/24 09:00 12/23/24 09:44 Amlodipine Besylate 10 Mg Tablet PO 10 mg DAILY SHELIA Administration Atorvastatin Calcium 80 mg 12/21/24 21:00 12/22/24 20:51 Atorvastatin 40 Mg Tablet PO 80 mg HS SHELIA Administration Dextrose 12.5 gm 12/21/24 09:20 Dextrose 50% 25 Gm/50 Ml Syringe IV PUSH PRN PRN Hypoglycemia Protocol Gabapentin 100 mg 12/21/24 09:00 12/23/24 09:44 Gabapentin 100 Mg Capsule PO 100 mg BID SHELIA Administration Glucagon 1 mg 12/21/24 09:20 Glucagon For Inj 1 Mg Vial IM PRN PRN Hypoglycemia Protocol Glucose 15 gm 12/21/24 09:20 Glucose Oral Gel 15 Gm Of Glucse In 37.5 Gm Tube PO PRN PRN Hypoglycemia Protocol Hydralazine HCl 10 mg 12/21/24 09:00 12/23/24 09:44 Hydralazine 10 Mg Tablet PO 10 mg TID SHELIA Administration Dextrose 1,000 mls @ 100 mls/hr 12/21/24 09:20 Dextrose 5% 1,000 Ml IVPB PRN PRN Hypoglycemia Protocol Sodium Chloride 500 mls @ 10 mls/hr 12/22/24 14:35 12/22/24 15:30 Normal Saline Iv IV CONT Infused .Q24H SHELIA Infusion Insulin Aspart 3 - 6 units 12/21/24 12:00 12/23/24 08:19 Insulin Aspart (*Bkc) 100 Units/Ml SUB-Q Not Given [facility] Protocol Insulin Aspart 1 - 3 units 12/21/24 21:00 12/22/24 20:51 Insulin Aspart (*Bkc) 100 Units/Ml SUB-Q Not Given HS [facility] Protocol Insulin Glargine 10 units 12/21/24 21:00 12/22/24 20:52 Insulin Glargine (*Bkc) 100 Units/Ml 0.2 units/kg (10 units) Not Given SUB-Q HS [facility] Isosorbide Dinitrate 20 mg 12/21/24 09:00 12/23/24 09:44 Isosorbide Dinitrate 10 Mg Tablet PO 20 mg BID SHELIA Administration Pantoprazole Sodium 40 mg 12/21/24 09:00 12/23/24 09:44 Pantoprazole Sodium Iv 40 Mg Vial IV PUSH 40 mg Q12HR SHELIA Administration Sertraline HCl 50 mg 12/21/24 09:00 12/23/24 09:44 Sertraline Hcl 50 Mg Tablet PO 50 mg QAM SHELIA Administration Sodium Bicarbonate 1,300 mg 12/21/24 09:00 12/23/24 09:44 Sodium Bicarbonate Tab 650 Mg Tablet PO 1,300 mg BID SHELIA Administration Sucralfate 1,000 mg 12/22/24 16:30 12/23/24 06:29 Sucralfate Susp 100 Mg/Ml 10 Ml Udc PO 1,000 mg ACHS SHELIA Administration Labs Labs: Laboratory Results - last 24 hr 12/22/24 12/22/24 12/22/24 14:32 15:42 16:13 WBC RBC Hgb Hct MCV MCH MCHC RDW Plt Count MPV Immature Gran % (Auto) Neut % (Auto) Lymph % (Auto) [place] % (Auto) Eos % (Auto) Baso % (Auto) Lymph # (Auto) [place] # (Auto) Eos # (Auto) Baso # (Auto) Abs Immat Gran (auto) Absolute Neuts (auto) Absolute Nucleated RBC Nucleated RBC % Sodium Potassium Chloride Carbon Dioxide Anion Gap BUN Creatinine Estim Creat Clear Calc Estimated GFR Glucose POC Capillary Glucose 90 92 91 Calcium Phosphorus Magnesium Total Bilirubin AST ALT Alkaline Phosphatase Total Protein Albumin 12/22/24 12/23/24 12/23/24 20:35 05:17 08:12 WBC 8.2 RBC 2.77 L Hgb 7.9 L Hct 26.0 L MCV 93.9 MCH 28.5 MCHC 30.4 L RDW 14.0 Plt Count 235 MPV 11.0 H Immature Gran % (Auto) 0.4 Neut % (Auto) 50.3 Lymph % (Auto) 37.9 [place] % (Auto) 7.9 Eos % (Auto) 3.0 Baso % (Auto) 0.5 Lymph # (Auto) 3.11 [place] # (Auto) 0.7 H Eos # (Auto) 0.3 Baso # (Auto) 0.0 Abs Immat Gran (auto) 0.03 Absolute Neuts (auto) 4.1 Absolute Nucleated RBC 0.000 Nucleated RBC % 0.0 Sodium 137 Potassium 3.9 Chloride 109 H Carbon Dioxide 22 Anion Gap 6 BUN 26 H Creatinine 2.84 H Estim Creat Clear Calc Not Reportable Estimated GFR 17 L Glucose 92 POC Capillary Glucose 180 H 102 Calcium 7.5 L Phosphorus 3.1 Magnesium 1.8 Total Bilirubin 0.4 AST 16 ALT 10 Alkaline Phosphatase 77 Total Protein 6.0 L Albumin 2.8 L
[2024-12-23 11:55] LABS: Glucose Point of Care 142 mg/dl (65-105)
[2024-12-23 14:03] VITALS: BP 116/51; PULSE 87; RESP 16; TEMP 36.8; O2SAT 97
--- NOTE | 2024-12-23 16:47 | P.PNGI_ITS ---
Progress Note: A&P Assessment and Plan (1) Erosive esophagitis: Code(s): K22.10 - Ulcer of esophagus without bleeding Status: Acute Assessment and Plan: cause of presentation treated with pantoprazole twice daily (will switch to bid) and also added carafate no more signs of bleeding and overall better will follow as needed (2) Coffee ground emesis: Code(s): K92.0 - Hematemesis Status: Acute Assessment and Plan: resolved (3) Diabetes mellitus: Qualifiers: Diabetes mellitus complication status: with other specified complication Diabetes mellitus skilled nursing insulin use: unspecified skilled nursing insulin use status Diabetes mellitus type: type 2 Qualified Code(s): E11.69 - Type 2 diabetes mellitus with other specified complication Code(s): E11.9 - Type 2 diabetes mellitus without complications Status: Acute (4) Acute on chronic kidney failure: Qualifiers: Acute renal failure type: unspecified Chronic kidney disease stage: unspecified stage Qualified Code(s): N17.9 - Acute kidney failure, unspecified; N18.9 - Chronic kidney disease, unspecified Code(s): N17.9 - Acute kidney failure, unspecified; N18.9 - Chronic kidney disease, unspecified Status: Acute (5) Anemia in chronic kidney disease (CKD): Code(s): N18.9 - Chronic kidney disease, unspecified; D63.1 - Anemia in chronic kidney disease Status: Acute Subjective Date/time seen: 12/23/24 16:47 Interval history: egd yesterday with erosive esophagitis she is doing better today, denies any more emesis and tolerated diet Review of Systems Review of Systems: All systems reviewed & are unremarkable except as noted in HPI and below Exam Const: General: comfortable and no acute distress Other: chronically ill appearing HENMT: Face/Nose/Sinus: Normal nares present Eyes: Other: blind Neck: Neck: supple Resp: Auscultation: clear to auscultation bilaterally Cardio: Rate: regular rate Rhythm: regular rhythm GI: Inspection: non-distended GI Palp: Yes Soft to palpation and No Te nderness to palpation present (GI) Auscultation: normal bowel sounds Skin: General skin exam: normal color Neuro: Speech: normal speech Extrem: Other: Rt BKA Psych: Mental Status: mental status grossly normal Objective Data Vital Signs Vital Signs: Vital Signs - 24 hr 12/22/24 16:53 12/22/24 20:00 12/22/24 22:00 Temperature 97.1 F L 97.1 F L Pulse Rate 88 86 Respiratory Rate 18 18 Blood Pressure 142/94 H 109/43 L Pulse Oximetry 99 99 Oxygen Delivery Room Air 12/23/24 06:00 12/23/24 09:45 12/23/24 14:03 Temperature 97.4 F L 98.2 F Pulse Rate 82 87 Respiratory Rate 18 16 Blood Pressure 157/66 H 116/51 L Pulse Oximetry 98 98 97 Oxygen Delivery Room Air Intake/Output Intake/Output: Intake & Output 12/20/24 12/21/24 12/22/24 12/23/24 23:59 23:59 23:59 23:59 Intake Total 1540 1330 680 Output Total 1100 1900 1310 Balance [phone] Meds/Results Medications: Active Medications Generic Name Dose Route Start Last Admin Trade Name Freq PRN Reason Stop Dose Admin Acetaminophen 650 mg 12/20/24 21:51 Acetaminophen 325 Mg Tablet PO Q6H PRN Mild Pain (1-3) or Fever Amlodipine Besylate 10 mg 12/21/24 09:00 12/23/24 09:44 Amlodipine Besylate 10 Mg Tablet PO 10 mg DAILY SHELIA Administration Atorvastatin Calcium 80 mg 12/21/24 21:00 12/22/24 20:51 Atorvastatin 40 Mg Tablet PO 80 mg HS SHELIA Administration Dextrose 12.5 gm 12/21/24 09:20 Dextrose 50% 25 Gm/50 Ml Syringe IV PUSH PRN PRN Hypoglycemia Protocol Gabapentin 100 mg 12/21/24 09:00 12/23/24 09:44 Gabapentin 100 Mg Capsule PO 100 mg BID SHELIA Administration Glucagon 1 mg 12/21/24 09:20 Glucagon For Inj 1 Mg Vial IM PRN PRN Hypoglycemia Protocol Glucose 15 gm 12/21/24 09:20 Glucose Oral Gel 15 Gm Of Glucse In 37.5 Gm Tube PO PRN PRN Hypoglycemia Protocol Hydralazine HCl 10 mg 12/21/24 09:00 12/23/24 12:22 Hydralazine 10 Mg Tablet PO 10 mg TID SHELIA Administration Dextrose 1,000 mls @ 100 mls/hr 12/21/24 09:20 Dextrose 5% 1,000 Ml IVPB PRN PRN Hypoglycemia Protocol Insulin Aspart 3 - 6 units 12/21/24 12:00 12/23/24 12:22 Insulin Aspart (*Bkc) 100 Units/Ml SUB-Q Not Given TIDWM [facility] Protocol Insulin Aspart 1 - 3 units 12/21/24 21:00 12/22/24 20:51 Insulin Aspart (*Bkc) 100 Units/Ml SUB-Q Not Given HS [facility] Protocol Insulin Glargine 10 units 12/21/24 21:00 12/22/24 20:52 Insulin Glargine (*Bkc) 100 Units/Ml 0.2 units/kg (10 units) Not Given SUB-Q HS SHELIA Isosorbide Dinitrate 20 mg 12/21/24 09:00 12/23/24 09:44 Isosorbide Dinitrate 10 Mg Tablet PO 20 mg BID SHELIA Administration Sertraline HCl 50 mg 12/21/24 09:00 12/23/24 09:44 Sertraline Hcl 50 Mg Tablet PO 50 mg QAM SHELIA Administration Sodium Bicarbonate 1,300 mg 12/21/24 09:00 12/23/24 09:44 Sodium Bicarbonate Tab 650 Mg Tablet PO 1,300 mg BID SHELIA Administration Sucralfate 1,000 mg 12/22/24 16:30 12/23/24 12:22 Sucralfate Susp 100 Mg/Ml 10 Ml Udc PO 1,000 mg ACHS SHELIA Administration Labs Labs: Laboratory Results - last 24 hr 12/22/24 12/23/24 12/23/24 20:35 05:17 08:12 WBC 8.2 RBC 2.77 L Hgb 7.9 L Hct 26.0 L MCV 93.9 MCH 28.5 MCHC 30.4 L RDW 14.0 Plt Count 235 MPV 11.0 H Immature Gran % (Auto) 0.4 Neut % (Auto) 50.3 Lymph % (Auto) 37.9 Williams % (Auto) 7.9 Eos % (Auto) 3.0 Baso % (Auto) 0.5 Lymph # (Auto) 3.11 Williams # (Auto) 0.7 H Eos # (Auto) 0.3 Baso # (Auto) 0.0 Abs Immat Gran (auto) 0.03 Absolute Neuts (auto) 4.1 Absolute Nucleated RBC 0.000 Nucleated RBC % 0.0 Sodium 137 Potassium 3.9 Chloride 109 H Carbon Dioxide 22 Anion Gap 6 BUN 26 H Creatinine 2.84 H Estim Creat Clear Calc Not Reportable Estimated GFR 17 L Glucose 92 POC Capillary Glucose 180 H 102 Calcium 7.5 L Phosphorus 3.1 Magnesium 1.8 Total Bilirubin 0.4 AST 16 ALT 10 Alkaline Phosphatase 77 Total Protein 6.0 L Albumin 2.8 L 12/23/24 11:45 WBC RBC Hgb Hct MCV MCH MCHC RDW Plt Count MPV Immature Gran % (Auto) Neut % (Auto) Lymph % (Auto) Williams % (Auto) Eos % (Auto) Baso % (Auto) Lymph # (Auto) Williams # (Auto) Eos # (Auto) Baso # (Auto) Abs Immat Gran (auto) Absolute Neuts (auto) Absolute Nucleated RBC Nucleated RBC % Sodium Potassium Chloride Carbon Dioxide Anion Gap BUN Creatinine Estim Creat Clear Calc Estimated GFR Glucose POC Capillary Glucose 142 H Calcium Phosphorus Magnesium Total Bilirubin AST ALT Alkaline Phosphatase Total Protein Albumin
[2024-12-23 17:18] LABS: Glucose Point of Care 201 mg/dl (65-105)
[2024-12-23] MEDS: INSULIN ASPART (*BKC) 100 UNITS/ML SUB-Q (17:30)
[2024-12-23 19:01] LABS: Add Urine Microscopic? YES; Appearance Urine Clear (Clear); Bacteria Urine None Seen /hpf; Bilirubin Urine Negative (Negative); Blood Urine Negative (Negative); Color Urine Yellow (Yellow); Glucose Urine UA 1+ mg/dL (Negative); Ketones Urine Negative (Negative); Leukocyte Esterase Ur Negative LEU/UL (Negative); Nitrate Urine Negative (Negative); Non Pathogenic Casts 0-2; Protein Urine 2+ mg/dL (Negative); RBC Urine 0-2 /hpf (0-2); Specific Grav Ur 1.014 (1.001-1.035); Squamous Epithelial Cell Urine None Seen /hpf (Few); Urobilinogen Urine 0.2 mg/dL (<2.0); WBC Urine 0-5 /hpf (0-3); pH Urine 7.5 (5.0-9.0)
[2024-12-23 20:10] VITALS: BP 92/42; PULSE 80; RESP 18; TEMP 36.9; O2SAT 96
[2024-12-23 20:11] LABS: Glucose Point of Care 172 mg/dl (65-105)
[2024-12-23] MEDS: ATORVASTATIN 40 MG TABLET 80 MG PO (20:32)
[2024-12-23] MEDS: PANTOPRAZOLE 40 MG TABLET PO (20:32)
[2024-12-24 05:53] VITALS: BP 142/61; PULSE 79; RESP 18; TEMP 36.7; O2SAT 99
[2024-12-24] MEDS: SUCRALFATE SUSP 100 MG/ML 10 ML UDC 1000 MG PO ×2 (06:29→12:30)
[2024-12-24 06:39] LABS: Basophils Percent Auto 0.4 % (0.2-1.2); Eosinophils Absolute Auto 0.3 K/mm3 (0-0.3); Hematocrit 27.3 % (37.0-47.0); Hemoglobin 8.3 g/dL (12.0-15.0); Immature Granulocyte Absolute 0.02 K/mm3 (0.00-0.031); Immature Granulocyte Percent A 0.3 % (0-0.5); Lymphocytes Absolute Auto 2.64 K/mm3 (0.9-3.2); Lymphocytes Percent Auto 37.4 % (18.3-44.2); Mean Corpuscular HGB Conc 30.4 g/dl (32-36); Mean Corpuscular Hemoglobin 28.7 pg (26-34); Mean Corpuscular Volume 94.5 fl (80-100); Mean Platelet Volume 10.8 fl (7.4-10.4); Monocytes Absolute Auto 0.7 K/mm3 (0.1-0.6); Monocytes Percent Auto 10.4 % (2.6-8.5); Neutrophils Absolute Auto 3.4 K/mm3 (1.3-6.7); Neutrophils Percent Auto 47.5 % (45.5-73.1); Platelet Count Result 232 k/mm3 (150-375); Red Blood Count 2.89 M/mm3 (4.2-5.4); Red Cell Distribution Width 13.9 % (11.5-14.5); White Blood Count 7.1 K/mm3 (4.5-10.0)
[2024-12-24 07:00] LABS: Alanine Aminotransferase 10 U/L (6-35); Albumin Level 2.9 g/dL (3.5-5.1); Alkaline Phosphatase 71 U/L (38-126); Anion Gap 7 mmol/L (4-12); Aspartate Amino Transferase 17 U/L (14-36); Bilirubin,Total 0.3 mg/dL (0.2-1.3); Blood Urea Nitrogen 34 mg/dL (7-17); Calcium 7.7 mg/dL (8.4-10.2); Carbon Dioxide 23 mmol/L (22-30); Chloride 107 mmol/L (98-107); Estimated Glomerular Filt Rate 15; Glucose 114 mg/dL (65-110); Magnesium 1.9 mg/dL (1.6-2.3); Phosphorus 3.3 mg/dL (2.5-4.5); Potassium 4.4 mmol/L (3.4-5.0); Sodium 137 mmol/L (137-145)
[2024-12-24 08:48] LABS: Glucose Point of Care 134 mg/dl (65-105)
[2024-12-24] MEDS: SERTRALINE HCL 50 MG TABLET PO (09:51)
[2024-12-24] MEDS: amLODIPine BESYLATE 10 MG TABLET PO (09:51)
[2024-12-24] MEDS: GABAPENTIN 100 MG CAPSULE PO (09:52)
[2024-12-24] MEDS: PANTOPRAZOLE 40 MG TABLET PO (09:52)
[2024-12-24] MEDS: SODIUM BICARBONATE TAB 650 MG TABLET 1300 MG PO (09:52)
[2024-12-24] MEDS: ISOSORBIDE DINITRATE 10 MG TABLET 20 MG PO (09:52)
[2024-12-24] MEDS: hydrALAZINE 10 MG TABLET PO ×2 (09:53→13:45)
[2024-12-24 12:19] LABS: Glucose Point of Care 163 mg/dl (65-105)
[2024-12-24 14:00] VITALS: BP 109/50; PULSE 82; RESP 18; TEMP 36.4; O2SAT 98
--- NOTE | 2024-12-24 14:22 | P.DS_ITS ---
DS: Admitting Diagnosis Discharge Date 12/24/2024 Admitting Diagnosis Hematemesis DS: Discharge Diagnosis Discharge Diagnosis (1) Hematemesis: Code(s): K92.0 - Hematemesis Status: Acute (2) Electrolyte abnormality: Code(s): E87.8 - Other disorders of electrolyte and fluid balance, not elsewhere cl assified Status: Acute (3) Chronic kidney disease, stage 4 (severe): Code(s): N18.4 - Chronic kidney disease, stage 4 (severe) Status: Acute (4) Insulin dependent type 2 diabetes mellitus: Code(s): E11.9 - Type 2 diabetes mellitus without complications; Z79.4 - search director (current) use of insulin Status: Acute (5) Heart failure, type unknown: Code(s): I50.9 - Heart failure, unspecified Status: Acute (6) Hypertension: Code(s): I10 - Essential (primary) hypertension Status: Acute (7) Anemia in chronic kidney disease (CKD): Code(s): N18.9 - Chronic kidney disease, unspecified; D63.1 - Anemia in chronic kidney disease Status: Acute (8) Mixed action and resting tremor: Code(s): R25.9 - Unspecified abnormal involuntary movements Status: Acute DS: Summary Hospital Course Reason for hospitalization: Hematemesis Hospital Course: Admission: Patient was a 59-year-old female with history of gastroesophageal reflux disease, ulcers, chronic kidney disease stage 4 with anemia of chronic kidney disease, insulin-dependent type 2 diabetes mellitus, hypertension, and congestive heart failure type unknown (poorly documented and patient denies) who is being directly admitted to the medical floor from [facility] for close monitoring and GI consultation after she developed hematemesis. She was admitted to the hospital 2 nights ago with gastroenteritis and dehydration after presenting with a one-week history of nausea, vomiting, and mild diarrhea. CT scan at that time showed no acute abnormalities and noted a small hiatal hernia. Her kidney function improved with IV fluid however she continues to have nausea and intermittent vomiting. Today she appeared to have coffee-ground emesis which was gastroccult positive and transfer was initiated to [facility]. She had evidence of coffee-ground emesis on the front of her gown on arrival. She has not had any further episodes of vomiting and is currently with only mild nausea and she is asking for something to drink. At time she has an aching discomfort throughout her abdomen but is not severe enough for her to take analgesics and is manageable at this time. Again, she tells me she has a history of ulcers. She admits that she takes NSAIDs for pain though she does not quantify. She denies recent stressors, significant caffeine use, and alcohol use. She also denies fever, chills, sweats, syncope, near syncope, chest pain, shortness of breath, cough, and dysuria. She is blind and thus cannot say if there has been any blood in her stool. Hospital Course: Hematemesis: Patient continued admission for evaluation from GI at which time patient was taken for EGD with findings of reflux esophagitis she was then continued on her PPI the addition of Carafate she was then advanced on diet and tolerating well with resolution of hematemesis. she also had episode of hypokalemia and metabolic acidosis likely secondary to GI loss both her replenished and at time of discharge stable. patient with history of chronic kidney disease evaluation of renal function at baseline. During her hospitalization we did have to reduce her Lantus for diabetes due to poor oral intake. Patient also had abnormal urine culture: UA is not suggestive of UTI however urine culture grew vancomycin resistant Enterococcus faecium. Will repeat UA and urine culture. Likely a contamination as patient asymptomatic. patient is seen assessed at day of discharge in no acute distress and had no further complaints she was tolerating all oral intake and hemoglobin was stable patient was discharged back to home with instructed to continue current GI medication and to follow-up with GI outpatient. Status at Discharge Functional status at discharge: wheelchair bound Overall status at discharge: patient is back to baseline Time Spent with Patient Time attestation: Total time spent providing and/or coordinating discharge services: Time spent: Greater than 30 minutes Exam Narrative: HEENT: Sclerae nonicteric, pharyngeal mucosa pink and intact NECK: No JVD CHEST: Clear to auscultation. Normal effort HEART: NL S1/S2, regular, no murmur ABDOMEN: BS+, soft, nontender, no mass, no bruits EXTREMITIES: No cyanosis, edema, or clubbing NEUROLOGIC: CN intact and symmetric to inspection. Bilateral coarse rest tremor of upper extremities, right worse than left. MUSCULOSKELETAL: Tone and strength symmetric. Right BKA. PSYCH: Alert. Oriented to person, but not to place, thought year was 2023. Pleasant and cooperative. DS: Data Data Completed and Pending Pending studies at discharge: Pending at discharge 12/22/24 15:22 Surgical [PTH] Routine Labs on day of discharge: Labs from last 24 hours 12/24/24 12/24/24 12/24/24 12:05 08:37 06:11 WBC 7.1 RBC 2.89 L Hgb 8.3 L Hct 27.3 L MCV 94.5 MCH 28.7 MCHC 30.4 L RDW 13.9 Plt Count 232 MPV 10.8 H Immature Gran % (Auto) 0.3 Neut % (Auto) 47.5 Lymph % (Auto) 37.4 [place] % (Auto) 10.4 H Eos % (Auto) 4.0 Baso % (Auto) 0.4 Lymph # (Auto) 2.64 [place] # (Auto) 0.7 H Eos # (Auto) 0.3 Baso # (Auto) 0.0 Abs Immat Gran (auto) 0.02 Absolute Neuts (auto) 3.4 Absolute Nucleated RBC 0.000 Nucleated RBC % 0.0 Sodium 137 Potassium 4.4 Chloride 107 Carbon Dioxide 23 Anion Gap 7 BUN 34 H Creatinine 3.09 H Estim Creat Clear Calc Not Reportable Estimated GFR 15 L Glucose 114 H POC Capillary Glucose 163 H 134 H Calcium 7.7 L Phosphorus 3.3 Magnesium 1.9 Total Bilirubin 0.3 AST 17 ALT 10 Alkaline Phosphatase 71 Total Protein 6.0 L Albumin 2.9 L Urine Color Urine Appearance Urine pH Ur Specific [place] Urine Protein Urine Glucose (UA) Urine Ketones Ur Blood (Man) Urine Nitrate Urine Bilirubin Urine Urobilinogen Ur Leukocyte Esterase Urine RBC Urine WBC Ur Squamous Epith Cells Urine Bacteria Urine Casts 12/23/24 12/23/24 12/23/24 19:22 18:41 17:14 WBC RBC Hgb Hct MCV MCH MCHC RDW Plt Count MPV Immature Gran % (Auto) Neut % (Auto) Lymph % (Auto) [place] % (Auto) Eos % (Auto) Baso % (Auto) Lymph # (Auto) [place] # (Auto) Eos # (Auto) Baso # (Auto) Abs Immat Gran (auto) Absolute Neuts (auto) Absolute Nucleated RBC Nucleated RBC % Sodium Potassium Chloride Carbon Dioxide Anion Gap BUN Creatinine Estim Creat Clear Calc Estimated GFR Glucose POC Capillary Glucose 172 H 201 H Calcium Phosphorus Magnesium Total Bilirubin AST ALT Alkaline Phosphatase Total Protein Albumin Urine Color Yellow Urine Appearance Clear Urine pH 7.5 Ur Specific [place] 1.014 Urine Protein 2+ H Urine Glucose (UA) 1+ H Urine Ketones Negative Ur Blood (Man) Negative Urine Nitrate Negative Urine Bilirubin Negative Urine Urobilinogen 0.2 Ur Leukocyte Esterase Negative Urine RBC 0-2 Urine WBC 0-5 Ur Squamous Epith Cells None seen Urine Bacteria None seen Urine Casts 0-2 Imaging Radiologist's impression: c: Delisa Lopez APRN; Aubrey Carrion MD; UNKNOWN,DOCTOR~ Clinical Indication: Abdominal pain CT Scan of the Chest, Abdomen, and Pelvis without Contrast: Technique: Contiguous sections were acquired throughout the chest, abdomen, and pelvis without IV contrast administration. Dose reduction technique was used on this scan by utilizing automated exposure control and iterative reconstruction technique. The dose-length product (DLP) was 456.94 mGy-cm. Findings: There is no evidence of any significant mediastinal, hilar or axillary lymphadenopathy. Coronary artery calcifications are present. There is no evidence of pleural or pericardial effusion. The lungs are clear. No pulmonary nodules or infiltrates are noted. The liver, spleen, pancreas, gallbladder, adrenals and kidneys are within normal limits. No evidence of aortic aneurysm. No lymphadenopathy. No bowel obstruction or bowel wall thickening. There is no evidence to suggest acute appendicitis. Small hiatal hernia noted. Urinary bladder is unremarkable. No pelvic mass evident. No ascites. There is streak artifact from right hip arthroplasty. T12 and L5 compression fractures are present, most likely chronic. Impression: No acute abnormality seen. Probable chronic compression fractures of T12 and L5. Small hiatal hernia. Discharge Plan Discharge Attending physician on discharge: Dave Osorio Consulting providers: Elroy Baca; Soniya Rizvi; Patricio Zheng; Morteza Toledo Matthew A.; Cristy Pimentel; Gabrielle Palomares Discharging Clinician: Cristy Ortiz Anticipated Discharge Date/Time: 12/24/24 14:10 Patient Disposition: Home Activity: may shower and as tolerated Diet: diabetic and bland Discharge Instructions: reflux esophagitis: * Continue with pantoprazole BID and Carafate which I have prescribed take as directed * [place] diabetic diet * Follow-up with GI as needed they will call with results within 7 days Chronic Kidney disease: * Follow-up outpatient with nephrology as scheduled * avoid nephrotoxic Diabetes: * You lantus was reduced to 10 units due to poor oral intake my increase slowly back to original dosing once your intake has improved How can you care for yourself at home? ? Keep track of any new symptoms or changes in your symptoms. ? Rest until you feel better. ? Be safe with medicines. Take your medicines exactly as prescribed. Call your doctor if you think you are having a problem with your medicine. ? Do not drive after taking a prescription pain medicine. ? Ensure to follow-up with primary care physician as indicated and provide u pdated medication list provided to you at discharge. When should you call for help? Call 911 anytime you think you may need emergency care. For example, call if: ? You passed out (lost consciousness). Call your doctor now or seek immediate medical care if: ? You have new symptoms like fever, difficulty breathing, Chest pain, vomiting, or rash. ? You have new or different pain. ? You are confused and are having trouble thinking clearly. ? Your symptoms are getting worse. Watch closely for changes in your health, and be sure to contact your doctor if: ? You do not get better as expected. Patient Instructions: Antibiotic Form, Gastritis (DC), Chronic Kidney Disease (DC), Managing Diabetes During Sick Days (DC), Diabetic Kidney Disease (DC), Hypertension and Diabetes (DC), Diabetes and Nutrition (DC), Type 2 Diabetes Management for Adults (DC) Patient Language: Indian Stand Alone Forms: General Discharge Information Follow-up/Referrals: Coni Casper [Other] - 2 Weeks Discharge Medications: New sucralfate 100 mg/mL Suspension 1,000 mg PO ACHS Qty: 1000 0RF pantoprazole 40 mg Tablet,Delayed Release (Dr/Ec) 40 mg PO Q12HR Qty: 60 0RF insulin glargine [Lantus Solostar U-100 Insulin] 100 unit/mL (3 mL) insulin pen 10 unit subcut QPM Qty: 15 0RF Continued darbepoetin jeffrey-albumin 40 mcg/mL solution 40 mcg subcut MONTHLY PRN (Reason: low hgb) Rx Instructions: give if hgb is less than 10 isosorbide dinitrate 10 mg tablet 20 mg PO BID sertraline 50 mg tablet 50 mg PO Q24H amlodipine 10 mg tablet 10 mg PO DAILY atorvastatin [Lipitor] 80 mg tablet 80 mg PO HS gabapentin 100 mg capsule 100 mg PO BID sodium bicarbonate 650 mg tablet 650 mg PO BID Rx Instructions: 2 tabs BID folic acid 1 mg tablet 1 mg PO DAILY bumetanide 1 mg tablet 1 mg PO DAILY Rx Instructions: 1/2 tab daily hydralazine 10 mg tablet 10 mg PO TID Discontinued Lantus U-100 Insulin 100 unit/mL Cartridge 40 unit SUBCUT DAILY famotidine 40 mg tablet 40 mg PO BID metoclopramide HCl 10 mg tablet 10 mg PO TIDWMEAL aspirin [Adult Aspirin Regimen] 81 mg tablet,delayed release (DR/EC) 81 mg PO DAILY Date of admission: 12/21/24 07:53 Primary Care Provider: Coni Casper Admitting Provider: Aubrey Carrion Attending physician on admission: Cristy Ortiz Condition: Stable Quality VTE Prophylaxis VTE prophylaxis: mechanical ordered -Patient's previous records reviewed on admission -ER notes reviewed in detail on admission -discussed all findings and current treatment plan with patient/Family/POA -Consultations reviewed for recommendations -Patient's disposition for safe discharge discussed with cyanide case hardener Dictation performed by [employer] direct speech recognition software, therefore denial resolution specialist variants and typographical errors may occur. Hospitalist MIPS Heart Failure (Exclusion) Patient has history of Heart Transplant or Left Ventricular Assistive Device?: No IF YES, STOP HERE Heart Failure (Qualifier) Patient has current or prior documentation of LVEF less than or equal to 40%, or mod/servere depressed LVSF?: No IF NO, STOP HERE
== END 2024-12-24 15:53 | disposition home or self-care (01) | DRG 381 ==
PROVIDERS: Internal Medicine; Internal Medicine Gastroenterology; Physician Assistant; Admitting Provider Internal Medicine; Visit Provider Nurse Practitioner Family
PROC: 0DJ08ZZ Inspection of Upper Intestinal Tract, Via Natural or Artificial Opening Endoscopic (ICD-10-PCS; principal; 2024-12-22 16:00)
DX: K22.11 Ulcer of esophagus with bleeding (principal); I13.0 Hypertensive heart and chronic kidney disease with heart failure and stage 1 through stage 4 chronic kidney disease, or unspecified chronic kidney disease; N18.4 Chronic kidney disease, stage 4 (severe); N17.9 Acute kidney failure, unspecified; K92.0 Hematemesis; K21.00 Gastro-esophageal reflux disease with esophagitis, without bleeding; I50.9 Heart failure, unspecified; D63.1 Anemia in chronic kidney disease; E87.6 Hypokalemia; E11.22 Type 2 diabetes mellitus with diabetic chronic kidney disease; E11.319 Type 2 diabetes mellitus with unspecified diabetic retinopathy without macular edema; E78.5 Hyperlipidemia, unspecified; K44.9 Diaphragmatic hernia without obstruction or gangrene; G25.2 Other specified forms of tremor; H54.7 Unspecified visual loss; Z89.511 Acquired absence of right leg below knee; Z79.4 Long term (current) use of insulin; Z79.82 Long term (current) use of aspirin; Z79.1 Long term (current) use of non-steroidal anti-inflammatories (NSAID); Z99.3 Dependence on wheelchair
CPT/HCPCS: 36415; 76705; 80048; 80053; 80069; 80307; 81001; 82948; 83036; 83735; 84100; 85025; 85027; 86850; 86900; 86901; 87086; 87181; 88305; 88312; 93005; 96365; 96366; 96375; A9270; G0378; J1815; J2405; J2470; J2704; J3480; J7040; J7120

== ENCOUNTER 2025-02-16 16:18 | Emergency (ER) | payer OTHER, MEDICAID, SELFPAY ==
[2025-02-16] VITALS (35 sets, daily range): BP systolic 106–152; BP diastolic 50–79; PULSE 89–111; RESP 16–36; TEMP 36.6–36.7; O2SAT 86–100
--- NOTE | ~2025-02-16 | CT_ITS ---
EXAMINATION: CT abdomen pelvis wo con DATE: 02/16/2025 17:48 INDICATION: ABDOMINAL PAIN TECHNIQUE: Computed tomography (CT) of the abdomen and pelvis was performed without intravenous contr ast. Automated exposure control and iterative reconstruction technique were employed. The dose-length product was 474.68 mGy-cm. COMPARISON: 12/19/2024. FINDINGS: Exam limited by motion and beam hardening from arm down positioning. Lower thorax: Centrilobular nodular groundglass opacities throughout the lung bases. Coronary artery and mitral calcification. Liver: Normal. Biliary/Gallbladder: Gallbladder is normal. No bile duct dilation. Pancreas: No mass or duct dilation. Spleen: Normal. Adrenals:No mass. Kidneys: No suspicious mass, obstructing stone, or hydronephrosis. GI tract: Small hiatal hernia, with patulous distal esophagus. No small or large bowel dilation. Appe ndix not confidently visualized. Mesentery/Peritoneum: No ascites, mass, or free air. Retroperitoneum: No mass. Atherosclerotic calcifications of intra-abdominal arterial vessels. Pelvis: Distended urinary bladder with mild wall thickening. Enlarged uterus. Normal bilateral ovarie s. Soft Tissues: Soft tissues and body wall unremarkable. Bones: No acute osseous finding. Partially visualized, uncomplicated appearing left hip arthroplasty hardware. Chronic compression deformities at T12 and L5. IMPRESSION: Pulmonary centrilobular ground glass opacities may represent hypersensitivity pneumonitis, respirator y bronchitis in smokers, or infectious airways disease. Small hiatal hernia. Patulous esophagus. Mild urinary bladder wall thickening, correlate with urinalysis. Large uterus, presumably secondary to fibroids. Reviewed, dictated and finalized at location K. IMPRESSION: Pulmonary centrilobular ground glass opacities may represent hypersensitivity p neumonitis, respiratory bronchitis in smokers, or infectious airways disease. Small hiatal hernia. Patulous esophagus. Mild urinary bladder wall thickening, correlate with urinalysis. Large uterus, presumably secondary to fibroids.
--- NOTE | ~2025-02-16 | XR_ITS ---
EXAMINATION: XR chest 1V portable Exam Date/Time: 02/16/2025 17:20 CDT HISTORY: COUGHING Comparison: 12/18/2024; 02/16/2025. RESULT: Lines, tubes, and devices: None. Lungs and pleura: Patchy/nodular groundglass opacities in the lungs bilaterally, much better seen at CT. Cardiomediastinal silhouette: Stable. Other: No acute osseous or upper abdominal finding. Severe degenerative/posttraumatic changes in the right shoulder. IMPRESSION: Bilateral centrilobular nodular groundglass opacities, better seen in prior CT. Differential unchange d. Reviewed, dictated and finalized at location K. IMPRESSION: Bilateral centrilobular nodular groundglass opacities, better seen in prior CT. Differential unchanged.
--- OUTSIDE RECORDS SUMMARY | 2025-02-16 16:20 | XMS_ITS | Encounter Summary ---
Author Organization [facility] Address [address] [place] [id number] Care Team Providers Care [employer] Name Role Phone None, Provider MD Primary Care Provider Jyothi treviño Non-Staff, Provider Primary Care Provider Luis Manuel Osborne MD Primary Care Provider [phone] Destinee Rodriguez NP Primary Care Provider [phone] Reason for Referral * Surgical (Routine) - Closed Specialty Diagnoses / Procedures Referred By Ashlie dunbar Referred To Contact Diagnoses Osteomyelitis Procedures Case request operating room: BONE BIOPSY-FOOT Jaxon August MD [facility]. [facility] [address] [place] [address] Phone: tel: fax: [facility] [address] Phone: tel: Referral ID Status Reason Start Date Expiration Date Visits Re quested Visits Authorized [id number] Closed 03/09/2022 04/06/2023 1 1 Encounter Details Date Type Department Care Team (Late st Contact Info) Description 03/06/2022 Prep for Procedure [facility], [address] [place], [place] [id number] Jaxon August MD [facility]. [address] [place] [address] Social History Tobacco Use Types Packs/Day Years Used Date Smoking Tobacco: Never Smokeless Tobacco: Never Comments Unknown Sex and Gender Information Value Date Recorded Sex Assigned at Female 10/22/2024 9:59 PM [employer] Legal Sex Female 9:54 PM [employer] MANAGER Gender Identity Not on file Sexual Orientation [...] AM CDT Gómez Martin RN Active * [place] Suicide Severity Rating Scale (Screener/Recent Self-Report) Question Answer Date of Assessment Author Status 1. Wish to be (Past 1 Month) No 03/09/2022 10:52 AM CDT Pearl Martin RN Active 2. Non-Specific Active Suicidal Thoughts (Past 1 Month) No 03/09/2022 10:52 AM CDT Pearl Martin RN Active 6. Suicidal Behavior (Lifetime) No 03/09/2022 10:52 AM CDT Pearl Maritn RN Active documented as of this encounter [...] Rule Out 10/22/2024 10/22/2024 10/22/2024 10:40 PM [employer] MANAGER Respiratory Rule Out 10/22/2024 10/22/2024 025 10:41 PM [employer] MANAGER documented as of this encounter Care Teams [employer] Relationship Specialty Start Date End Date None, Provider, PCP - General 08/20/21 06/01/22 Non-Staff, Provider PCP - General UNKNOWN PHYSICIAN SPECIALTY 06/02/22 05/07/23 Luis Manuel Mccall MD [facility] [place] [address] PCP - General FAMILY PRACTICE 05/08/23 09/07/23 Dest[facility] [place] [address] PCP - General NURSE PRACTITIONER 09/08/23 documented as of this encounter
--- OUTSIDE RECORDS SUMMARY | 2025-02-16 16:20 | XMS_ITS | Clinical Summary ---
Author Organization [facility] Address [address] [place] [address] Care Team Providers Care Vehicle Refinisher Name Role Phone Destinee Rodriguez NP Primary Care Provider [phone] Allergies No known active allergies Medications amLODIPine [...] heart failure with left ventricular diastolic dysfunction ([facility] HHS/HCC),Hypoxic respiratory failure ([facility] HHS/HCC) 1 Device by Nasal route continuous. Nasal Cannula. 2L continuous oxygen. Portable tank and stationary concentrator 1 Device 4 Active OXYGEN CONCENTRATOR SUPPLY, DME,Indications: Congestive heart failure with left ventricular diastolic dysfunction (CMS/HCC HHS/HCC),Hypoxic respiratory failure (CMS/[facility] HHS/HCC) 1 Device by Nasal route continuous. [...] failure wit h left ventricular diastolic dysfunction ([facility] HHS/HCC) 09/13/2023 Hypoxic respiratory failure ([facility] HHS/HCC) Fracture of femoral neck, right ([facility] ) 05/04/2023 Osteomyelitis ([facility]) 02/26/2022 Immunizations Immunization Administration Dates Next Due Fluzone [...] drink = 0.6 oz pur e alcohol) [facility] Utilities Answer Date Recorded In the past 12 months has e [employer], gas, oil, or water [employer] threatened to shut off services in your [...] place to sleep or slept in a detention (including now)? No 09/08/2023 Housing Stability Vital [...] any time in the past 12 m ont, were you homeless or living in a detention (including now)? Patient declined 10/23/2024 Comments No Sex and Gender Information Value Date Recorded Sex Assigned at Female 10/22/2024 9:59 PM FLOOR ASSEMBLER Legal Sex Female 9:54 PM FLOOR ASSEMBLER Gender Identity Not on file Sexual Orientation Not on file Last Filed Vital Signs Vital Sign Reading Time Taken Comments Blood Pressure 107/54 10/24/2024 8:00 AM FLOOR ASSEMBLER Pulse 77 10/24/2024 8:00 AM FLOOR ASSEMBLER Temperature 36 C (96.8 F) 10/24/2024 8:00 AM FLOOR ASSEMBLER Respiratory Rate 16 10/24/2024 8:00 AM FLOOR ASSEMBLER Oxygen Saturation 100% 10/24/2024 8:00 AM FLOOR ASSEMBLER Inhaled Oxygen Concentration - - Weight 49.4 kg (109 lb) 10/23/2024 12:00 PM FLOOR ASSEMBLER Height 149.9 cm (4' 11) 10/23/2024 12:00 PM FLOOR ASSEMBLER Body Mass Index 22.02 10/23/2024 12:00 PM FLOOR ASSEMBLER Plan of Treatment Health Maintenance Due Date [...] Colón, BERNIE Medical Devices Implanted Type Area Supply Chain Development Manager Device Identifier Shelf Expiration Date Model / Serial / Lot Cement Bone Biomet 40gm - [id number] Implanted:Qty: 2 on 05/05/2023 by Idris Almanza MD at [facility] Cement Implant Right: Hip [employer] 08/19/2025 [id number] / / Plug Cement Kvng Gabriel Medullary 20mm - [id number] Implanted:Qty: 1 on 05/05/2023 by Idris Almanza MD at [facility] Cement Implant Right: Hip [employer] 01/11/2027 [id number] / / Shell Kvng Bipolar 41mm Od - [id number] Implanted:Qty: 1 on 05/05/2023 by Idris Almanza MD at [facility] Hip Components Right: Hip [employer] 12/17/2025 [id number] / / Liner Kvng Bipolar Hip 22 Id 40/41mm - [id number] Implanted:Qty: 1 on 05/05/2023 by Idris Almanza MD at [facility] Hip Components Right: Hip [employer] 08/19/2025 [id number] / / [id number] 1214 Implanted:Qty: 1 on 05/05/2023 by Idris Almanza MD at [facility] Right: Hip [employer] 08/25/2027 [id number] / / Femoral Head Implanted:Qty: 1 on 05/05/2023 by Idris Almanza MD at [facility] Right: Hip [employer] 09/15/2031 [id number] / / Explanted Type Area Supply Chain Development Manager Device Identifier Shelf Expiration Date Model / Serial / Lot System Bone Cement 1 2 Mix - [id number] Explanted:Qty: 1 on 05/05/2023 by Idris Almanza MD at [facility] Cement Implant Right: Hip [employer] 12/21/2025 [id number] / / Femoral Cement Preparation Kit Explanted:Qty: 1 on 05/05/2023 by Idris Almanza MD at [facility] Right: Hip [employer] 11/25/2027 [id number] / / Insurance MEDICARE PART A MEDICAID * Guarantor: Helga Deanna Stone Account Type Relation to Patient Date of Phone Billing Address [employer] [address] 1965 [address] [place] [address] Advance Directives Documents on File Type Date Recorded Patient Mold Puller Expl anation Advance Directives and Livin g [...] 1:37 PM 03/17/2022 7:40 PM Care Teams Vehicle Refinisher Relationship Specialty Start Date End Date Destinee Rodriguez NP PCP - General NURSE PRACTITIONER 09/08/23
--- OUTSIDE RECORDS SUMMARY | 2025-02-16 16:20 | XMS_ITS | Encounter Summary ---
Author Organization [facility] Address [address] [place] [address] Care Team Providers Care Sales Engineer Account Manager Name Role Phone Destinee Rodriguez NP Primary Care Provider [phone] Encounter Details Date Type Department Care Team (Late st Contact Info) Description 09/17/2023 Hospital Follow-up Call [facility] Cardiovascular Care Unit [address] [place] [address] Xiomara Schmitt RN Social History Tobacco Use Types Packs/Day Years Used Date Smoking Tobacco: Never Smokeless Tobacco: Never [facility] Utilities Answer Date Recorded In the past [...] place to sleep or slept in a long-term (including now)? No 09/08/2023 Comments Unknown Sex and Gender Information Value Date Recorded Sex Assigned at Female 10/22/2024 9:59 PM CONSULTANT EDUCATION Legal Sex Female 9:54 PM CONSULTANT EDUCATION Gender Identity Not on file Sexual Orientation [...] Assessment Author Status No 09/08/2023 3:58 AM CONSULTANT EDUCATION Ever Yancey RN Active documented as of this encounter Mental Status * Because of a physical, mental, or emotional condition, do you have serious difficulty concentrating, remembering, or making decisions? Answer Entry Date Author Status No 09/08/2023 3:58 AM CONSULTANT EDUCATION Ever Yancey RN Active documented in this [...] Rule Out 10/22/2024 10/22/2024 10/22/2024 10:40 PM CONSULTANT EDUCATION Respiratory Rule Out 10/22/2024 10/22/2024 025 10:41 PM CONSULTANT EDUCATION documented as of this encounter Care Teams Sales Engineer Account Manager Relationship Specialty Start Date End Date Destinee Rodriguez, REKHA PCP - General NURSE PRACTITIONER 09/08/23 documented as of this encounter
--- NOTE | 2025-02-16 16:35 | ECG_ITS ---
Test Date: 2025-02-16 16:48:01 Measurements Intervals [place] Rate: 93 P: 60 [place]: 192 QRS: -4 QRSD: 141 T: 109 QT: 425 QTc: 531 Interpretive Statements SINUS RHYTHM LEFT BUNDLE BRANCH BLOCK BASELINE ARTIFACT- I, II, III, AVR, AVL, AVF ABNORMAL ECG Compared to ECG 12/21/2024 07:25:21 No significant changes Electronically Signed On 02-16-2025 20:37:13 CDT by Senthil Fan D.O.
--- NOTE | 2025-02-16 16:35 | ED.ABDPAIN ---
HPI - Abdominal Pain General Chief Complaint: Abdominal Pain Stated Complaint: abdominal pain Time Seen by Provider: 02/16/25 16:35 Source: patient and EMS Mode of arrival: EMS Limitations: no limitations History of Present Illness HPI narrative: 59 YEARS OLD WHITE FEMALE CAME FROM HOME BY AMBULANCE COMPLAINING OF NAUSEA, VOMITING , DIARRHEA AND ABDOMINAL PAIN FOR THE LAST 3 DAYS. PATIENT CANNOT TELL HOW MANY EPISODES OF VOMITING OR DIARRHEA A DAY. IN THE AMBULANCE PATIENT'S SATURATION WAS RUNNING IN THE 88%. PATIENT DENIES ANY CHEST PAIN OR SHORTNESS OF BREATH OR RESPIRATORY SYMPTOMS. PATIENT DENIES ANY FEVER OR CHILLS OR URINARY SYMPTOMS. HISTORY DIABETES, HYPERTENSION, HYPERLIPIDEMIA. PATIENT DENIES HISTORY OF ABDOMINAL SURGERY, SMOKING, DRINKING OR USING DRUGS. Related Data Home Medications ?Medication ?Instructions ?Recorded ?Confirmed ?Last Taken ?Type amlodipine 10 mg tablet 10 mg PO DAILY 12/18/24 12/21/24 Unknown History atorvastatin 80 mg tablet (Lipitor) 80 mg PO HS 12/18/24 12/21/24 Unknown History bumetanide 1 mg tablet 1 mg PO DAILY 12/18/24 12/21/24 Unknown History darbepoetin jeffrey-albumin 40 mcg/mL 40 mcg subcut MONTHLY PRN low hgb 12/18/24 12/21/24 Unknown History in albumin injection gabapentin 100 mg capsule 100 mg PO BID 12/18/24 12/21/24 Unknown History hydralazine 10 mg tablet 10 mg PO TID 12/18/24 12/21/24 Unknown History isosorbide dinitrate 10 mg tablet 20 mg PO BID 12/18/24 12/21/24 Unknown History sertraline 50 mg tablet 50 mg PO Q24H 12/18/24 12/21/24 Unknown History sodium bicarbonate 650 mg tablet 650 mg PO BID 12/18/24 12/21/24 Unknown History famotidine 40 mg tablet 40 mg PO Q12H 02/16/25 Unknown History metoclopramide HCl 10 mg tablet 5 mg PO Q6H 02/16/25 Unknown History Allergies Allergy/AdvReac Type Severity Reaction Status Date / Time No Known Allergies Allergy Unknown Verified 02/16/25 16:26 Review of Systems Review of Systems: All systems reviewed & are unremarkable except as noted in HPI and below PMFSH Past Medical History Medical History Erosive esophagitis Coffee ground emesis Insulin dependent type 2 diabetes mellitus Chronic kidney disease, stage 4 (severe) 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 Code status: Full code. Smoking status: Never smoker Second hand tobacco smoke exposure: No Additional smoking assessment comments: Per patient her spouse smokes in the home. Alcohol intake: never Substance use: never Substance use type: does not use Do You Feel Safe in your Home?: Yes Lack of Transportation: No Lack of Food: Never True Current Housing: I Have Housing Concerned About Future Housing: No Difficulty Paying Gas/Electric Bills: No Difficulty Paying for Meds: No Currently Unemployed: No Education: Decline to Answer Difficulty w/ Childcare or Family Care: No Living arrangements: with family Additional living arrangements comments: Lives with in [place]. They have 2 grown children. Occupation/Education: retired Additional occupation/education comments: Was in the [employer]. Gender identity (if verbalized by the patient): Female Sexual Orientation (if Verbalized by the Patient): Straight or Heterosexual Spiritual care concerns: No Agree to blood products: Yes Exam Narrative: GENERAL APPEARANCE: WELL-DEVELOPED, WELL-NOURISHED SKIN: NORMAL COLOR HEAD: NORMOCEPHALIC, NONTRAUMATIC EYES: CLEAR CONJUNCTIVA ENT: OROPHARYNX NORMAL, EARS NORMAL, NOSE NORMAL NECK: SUPPLE, NONTENDER CHEST AND RESPIRATORY: AIRWAY PATENT, NO RESPIRATORY DISTRESS, NO ACCESSORY MUSCLE USE HEART: REGULAR RATE/RHYTHM ABDOMEN: SOFT, NONTENDER, NO ORGANOMEGALY, QUIET BOWEL SOUNDS VASCULAR: NORMAL PERIPHERAL PULSES, NORMAL CAPILLARY REFILL. MUSCULOSKELETAL: RIGHT BELOW-KNEE AMPUTATION NEUROLOGIC: ALERT AND ORIENTED ?3, HIGHWAY TRAFFIC CONTROL TECHNICIAN IS NORMAL TESTED, NO GROSS MOTOR DEFICIT Course Consultations Consultation #1: Eliz, nurse practitioner, admit to Date: 02/16/25 Time: 19:21 Vital Signs Vital signs: Vital Signs Temperature 36.7 C 02/16/25 16:19 Pulse Rate 89 02/16/25 16:19 Respiratory Rate 36 H 02/16/25 16:19 Blood Pressure 128/62 02/16/25 16:19 Pulse Oximetry 90 02/16/25 16:19 Oxygen Delivery Room Air 02/16/25 16:19 Temperature 36.7 C 02/16/25 16:19 Pulse Rate 105 H 02/16/25 19:11 Respiratory Rate 24 H 02/16/25 19:11 Blood Pressure 149/67 H 02/16/25 19:01 Pulse Oximetry 100 02/16/25 19:11 Oxygen Delivery BiPAP 02/16/25 19:11 Oxygen Flow Rate 2 02/16/25 17:27 MDM - Abdominal Pain MDM Narrative Medical decision making narrative: PATIENT CAME WITH NAUSEA, VOMITING, DIARRHEA AND ABDOMINAL PAIN FOR THE LAST 3 DAYS VITAL SIGN SHOWING RESPIRATORY RATE 36, OXYGENATION ON ROOM AIR 90% PHYSICAL EXAMINATION SHOWING A DEBILITATED PATIENT WITH SLIGHT DIFFUSE ABDOMINAL TENDERNESS, NO GUARDING OR REBOUND, HYPERACTIVE BOWEL SOUNDS. DIFFERENTIAL DIAGNOSIS INCLUDE GASTROENTERITIS, DEHYDRATION, ELECTROLYTE IMBALANCE, BOWEL OBSTRUCTION, COLITIS, DIVERTICULITIS, URINARY TRACT INFECTION BLOOD WORKUP TODAY INCLUDES CBC, CMP, LIPASE, LACTIC ACID, PROBNP SHOWED WBC 11.9, HEMOGLOBIN 10.6, PN 47, CREATININE 3.7, GLUCOSE 262, PRO BMP 12,700 URINALYSIS SHOWED EVIDENCE OF INFECTION ABG SHOWED PH 7.28, PCO2 37.1 PO2 44.3, BICARB 17.1, SATURATION ON ROOM AIR 77.2%. Acidosis could be secondary to chronic renal failure. Patient tested negative for COVID, flu and RSV Diagnosis acute hypoxic respiratory failure, pneumonitis, urinary tract infection, ARACELIS Transferred to [facility] discussed with the physician perinatal breastfeeding assistant, Eliz / Differential Diagnosis Differential diagnosis: Likely other ( As above) Medical Records Attestation: I reviewed the patient's medical records. Lab Data Attestation: I reviewed the patient's lab results. 02/16/25 16:56 02/16/25 16:56 Labs: Lab Results 02/16/25 02/16/25 Range/Units 16:56 17:00 WBC 11.9 H (4.8-10.8) K/mm3 RBC 3.78 L (4.20-5.40) M/mm3 Hgb 10.6 L (12.0-15.0) g/dL Hct 34.3 L (35.0-49.0) % MCV 90.7 (78.0-102.0) fL MCH 28.0 (27.0-31.0) pg MCHC 30.9 L (32-36) g/dL RDW 14.0 (11.6-14.4) % Plt Count 299 (150-420) K/mm3 MPV 10.4 (9.2-11.8) fl Immature Gran % (Auto) 0.3 H (0.0-0.0) % Neut % (Auto) 91.4 H (50.0-70.0) % Lymph % (Auto) 2.9 L (18.0-42.0) % [place] % (Auto) 5.1 (2.0-11.0) % Eos % (Auto) 0.0 L (1.0-6.0) % Baso % (Auto) 0.3 (0.0-1.0) % Lymph # (Auto) 0.34 L (1.10-4.50) K/mm3 [place] # (Auto) 0.60 (0.10-0.90) K/mm3 Eos # (Auto) 0.00 L (0.02-0.50) K/mm3 Baso # (Auto) 0.04 (0.00-0.10) K/mm3 Abs Immat Gran (auto) 0.04 H (0.00-0.00) K/mm3 Absolute Neuts (auto) 10.85 H (1.70-7.20) K/mm3 Absolute Nucleated RBC 0.00 (0.00-0.00) K/mm3 Nucleated RBC % 0.0 (0-0.0) % PT 9.9 (9.50-12.1) Seconds INR 0.9 APTT 23.1 L (23.9-30.70) Sec Sodium 140 (137-145) mmol/L Potassium 4.5 (3.4-5.0) mmol/L Chloride 111 H (98-107) mmol/L Carbon Dioxide 19 L (22-30) mmol/L Anion Gap 10 (4-12) mmol/L BUN 47 H D (7-17) mg/dL Creatinine 3.71 H (0.7-1.0) mg/dL Estim Creat Clear Calc Not Reportable Estimated GFR 12 L (59 - ) Glucose 262 H (65-110) mg/dL Calculated Osmolality 311 H (285-295) mOsm/kg Lactic Acid 1.7 (0.4-2.0) mmol/L Calcium 8.5 (8.4-10.2) mg/dL Total Bilirubin 0.6 (0.2-1.3) mg/dL AST 21 (14-36) U/L ALT 14 (6-35) U/L Alkaline Phosphatase 128 H (38-126) U/L Troponin I 0.019 (0.000-0.034) ng/mL NT-Pro-B Natriuret Pep 94891 H (19.9-100) pg/mL Total Protein 7.2 (6.3-8.2) g/dL Albumin 3.8 (3.5-5.1) g/dL Lipase 143 (23-300) U/L Urine Color Light yellow (Yellow) Urine Appearance Sl cloudy A (Clear) Urine pH 6.0 (5.0-8.0) Ur Specific [place] 1.015 (1.010-1.020) Urine Protein 2+ H (Negative) Urine Glucose (UA) 2+ H (Negative) Urine Ketones Negative (Negative) Ur Blood (Man) 1+ H (Negative) Urine Nitrate Negative (Negative) Urine Bilirubin Negative (Negative) Urine Urobilinogen 0.2 (0.2-1.0) mg/dL Leukocyte Esterase Rfl 2+ H (Negative) BRIAN/UL Urine RBC 3-5 H (0-2) /hpf Urine WBC 10-15 H (0-3) /hpf Ur Squamous Epith Cells Rare (Few) /hpf Urine Bacteria 4+ H (None) /hpf ABG Data ABG results: 02/16/25 16:56 Puncture Site Left radial ABG pH 7.28 L ABG pCO2 37.1 ABG pO2 44.3 L ABG HCO3 17.1 L ABG O2 Saturation 77.2 L ABG Base Excess -8.9 L Oxyhemoglobin 76.4 L O2 Delivery Device Room air O2 Liters/Min 0.0 Imaging Data Radiologist's impression: ITS Impressions Abdomen/Pelvis CT 02/16/25 18:03 IMPRESSION: Pulmonary centrilobular ground glass opacities may represent hypersensitivity pneumonitis, respiratory bronchitis in smokers, or infectious airways disease. Small hiatal hernia. Patulous esophagus. Mild urinary bladder wall thickening, correlate with urinalysis. Large uterus, presumably secondary to fibroids. Chest X-Ray 02/16/25 18:12 IMPRESSION: Bilateral centrilobular nodular groundglass opacities, better seen in prior CT. Differential unchanged. ECG Data EKG #1: Attestation: I personally reviewed and interpreted this ECG as follows: ECG completion date: 02/16/25 Interpretation: normal sinus rhythm at 93 beats per minute, left bundle-branch block compared to EKG on December 21, 2024 no significant changes Critical Care Time Critical Care Time Critical Care Time: No Discharge Plan Discharge Clinical Impression: Acute hypoxic respiratory failure, Urinary tract infection, ARACELIS (acute kidney injury) Patient Disposition: Acute Care Hospital Condition: Guarded Prognosis Additional Instructions: TRANSFERRED TO [facility]/ Patient Language: Pashto Prescriptions: No Action darbepoetin jeffrey-albumin 40 mcg/mL solution 40 mcg subcut MONTHLY PRN (Reason: low hgb) Rx Instructions: give if hgb is less than 10 isosorbide dinitrate 10 mg tablet 20 mg PO BID sertraline 50 mg tablet 50 mg PO Q24H amlodipine 10 mg tablet 10 mg PO DAILY atorvastatin [Lipitor] 80 mg tablet 80 mg PO HS gabapentin 100 mg capsule 100 mg PO BID sodium bicarbonate 650 mg tablet 650 mg PO BID Rx Instructions: 2 tabs BID bumetanide 1 mg tablet 1 mg PO DAILY Rx Instructions: 1/2 tab daily hydralazine 10 mg tablet 10 mg PO TID famotidine 40 mg tablet 40 mg PO Q12H metoclopramide HCl 10 mg tablet 5 mg PO Q6H sucralfate 100 mg/mL Suspension 1,000 mg PO ACHS Qty: 1000 0RF pantoprazole 40 mg Tablet,Delayed Release (Dr/Ec) 40 mg PO Q12HR Qty: 60 0RF insulin glargine [Lantus Solostar U-100 Insulin] 100 unit/mL (3 mL) insulin pen 10 unit subcut QPM Qty: 15 0RF Follow-up/Referrals: UNKNOWN,DOCTOR [Primary Care Provider] -
[2025-02-16] MEDS: ONDANSETRON INJ 4 MG/2 ML VIAL 8 MG IV PUSH (16:46)
[2025-02-16] MEDS: SODIUM CHLORIDE 0.9% IV 1,000 ML 999 ML IV CONT (16:47)
--- OUTSIDE RECORDS SUMMARY | 2025-02-16 16:54 | XMS_ITS | Encounter Summary ---
Author Organization [facility] Address [address] [place] [address] Care Team Providers Care Ambulatory Care Nurse Name Role Phone Destinee Rodriguez NP Primary Care Provider [phone] Encounter Details Date Type Department Care Team (Late st Contact Info) Description 09/17/2023 Hospital Follow-up Call [facility] Cardiovascular Care Unit [address] [place] [address] Xiomara Schmitt RN Social History Tobacco Use Types Packs/Day Years Used Date Smoking Tobacco: Never Smokeless Tobacco: Never [facility] Utilities Answer Date Recorded In the [...] in a retirement (including now)? No 09/08/2023 Comments Unknown Sex and Gender Information Value Date Recorded Sex Assigned at Female 10/22/2024 9:59 PM TRUSS MAKER Legal Sex Female 9:54 PM TRUSS MAKER Gender Identity Not on file Sexual Orientation [...] Assessment Author Status No 09/08/2023 3:58 AM TRUSS MAKER Ever Yancey RN Active documented as of this encounter Mental Status * Because of a physical, mental, or emotional condition, do you have serious difficulty concentrating, remembering, or making decisions? Answer Entry Date Author Status No 09/08/2023 3:58 AM TRUSS MAKER Ever Yancey RN Active documented in this [...] Rule Out 10/22/2024 10/22/2024 10/22/2024 10:40 PM TRUSS MAKER Respiratory Rule Out 10/22/2024 10/22/2024 025 10:41 PM TRUSS MAKER documented as of this encounter Care Teams Ambulatory Care Nurse Relationship Specialty Start Date End Date Destinee Rodriguez, REKHA PCP - General NURSE PRACTITIONER 09/08/23 documented as of this encounter
--- OUTSIDE RECORDS SUMMARY | 2025-02-16 16:54 | XMS_ITS | Encounter Summary ---
Author Organization [facility] Address [address] [place] [address] Care Team Providers Care Um Nurse Name Role Phone None, Provider MD Primary Care Provider Jyothi treviño Non-Staff, Provider Primary Care Provider Luis Manuel Osborne MD Primary Care Provider [phone] Destinee Rodriguez NP Primary Care Provider [phone] Reason for Referral * Surgical (Routine) - Closed Specialty Diagnoses / Procedures Referred By Ashlie dunbar Referred To Contact Diagnoses Osteomyelitis Procedures Case request operating room: BONE BIOPSY-FOOT Jaxon August MD [facility]. [facility] [address] [place] [address] Phone: tel: fax: [facility] [place] [place] [address] Phone: tel: Referral ID Status Reason Start Date Expiration Date Visits Re quested Visits Authorized [id number] Closed 03/09/2022 04/06/2023 1 1 Encounter Details Date Type Department Care Team (Late st Contact Info) Description 03/06/2022 Prep for Procedure [facility], [facility] [place], [place] [id number] Jaxon August MD [facility]. [address] [place] [address] Social History Tobacco Use Types Packs/Day Years Used Date Smoking Tobacco: Never Smokeless Tobacco: Never Comments Unknown Sex and Gender Information Value Date Recorded Sex Assigned at Female 10/22/2024 9:59 PM RESOURCING CONSULTANT Legal Sex Female 9:54 PM RESOURCING CONSULTANT Gender Identity Not on file Sexual Orientation [...] AM CDT Gómez Martin RN Active * [place] Suicide Severity Rating Scale (Screener/Recent Self-Report) Question [...] Rule Out 10/22/2024 10/22/2024 10/22/2024 10:40 PM RESOURCING CONSULTANT Respiratory Rule Out 10/22/2024 10/22/2024 025 10:41 PM RESOURCING CONSULTANT documented as of this encounter Care Teams Um Nurse Relationship Specialty Start Date End Date None, Provider, PCP - General 08/20/21 06/01/22 Non-Staff, Provider PCP - General UNKNOWN PHYSICIAN SPECIALTY 06/02/22 05/07/23 Luis Manuel Mccall MD [facility] [place] [address] PCP - General FAMILY PRACTICE 05/08/23 09/07/23 Destinee Rodriguez [facility] [place] [address] PCP - General NURSE PRACTITIONER 09/08/23 documented as of this encounter
--- OUTSIDE RECORDS SUMMARY | 2025-02-16 16:54 | XMS_ITS | Clinical Summary ---
Author Organization [facility] Address [address] [place] [address] Care Team Providers Care Security Rep Name Role Phone Destinee Rodriguez NP Primary Care Provider [phone] Allergies No known active allergies Medications amLODIPine [...] heart failure with left ventricular diastolic dysfunction ([facility] HHS/HCC),Hypoxic respiratory failure ([facility] HHS/HCC) 1 Device by Nasal route continuous. Nasal Cannula. 2L continuous oxygen. Portable tank and stationary concentrator 1 Device 4 Active OXYGEN CONCENTRATOR SUPPLY, DME,Indications: Congestive heart failure with left ventricular diastolic dysfunction (CMS/HCC HHS/HCC),Hypoxic respiratory failure (CMS/[facility] HHS/HCC) 1 Device by Nasal route continuous. [...] failure wit h left ventricular diastolic dysfunction ([facility] HHS/HCC) 09/13/2023 Hypoxic respiratory failure ([facility] HHS/HCC) Fracture of femoral neck, right ([facility] ) 05/04/2023 Osteomyelitis ([facility]) 02/26/2022 Immunizations Immunization Administration Dates Next Due [...] drink = 0.6 oz pur e alcohol) [facility] Utilities Answer Date Recorded In the past 12 months has e [employer], gas, oil, or water [employer] threatened to shut off services in your [...] Sex Assigned at Female 10/22/2024 9:59 PM DAY CARE SUPERVISOR Legal Sex Female 9:54 PM DAY CARE SUPERVISOR Gender Identity Not on file Sexual Orientation Not on file Last Filed Vital Signs Vital Sign Reading Time Taken Comments Blood Pressure 107/54 10/24/2024 8:00 AM DAY CARE SUPERVISOR Pulse 77 10/24/2024 8:00 AM DAY CARE SUPERVISOR Temperature 36 C (96.8 F) 10/24/2024 8:00 AM DAY CARE SUPERVISOR Respiratory Rate 16 10/24/2024 8:00 AM DAY CARE SUPERVISOR Oxygen Saturation 100% 10/24/2024 8:00 AM DAY CARE SUPERVISOR Inhaled Oxygen Concentration - - Weight 49.4 kg (109 lb) 10/23/2024 12:00 PM DAY CARE SUPERVISOR Height 149.9 cm (4' 11) 10/23/2024 12:00 PM DAY CARE SUPERVISOR Body Mass Index 22.02 10/23/2024 12:00 PM DAY CARE SUPERVISOR Plan of Treatment Health Maintenance Due Date [...] Colón, BERNIE Medical Devices Implanted Type Area Promos Executive Producer Device Identifier Shelf Expiration Date Model / Serial / Lot Cement Bone Biomet 40gm - [id number] Implanted:Qty: 2 on 05/05/2023 by Idris Almanza MD at [facility] Cement Implant Right: Hip [employer] 08/19/2025 [id number] / / Plug Cement Kvng Gabriel Medullary 20mm - [id number] Implanted:Qty: 1 on 05/05/2023 by Idris Almanza MD at [facility] Cement Implant Right: Hip [employer] 01/11/2027 [id number] / / Shell Kvng Bipolar 41mm Od - [id number] Implanted:Qty: 1 on 05/05/2023 by Idris Almanza MD at [facility] Hip Components Right: Hip [employer] 12/17/2025 [id number] / / Liner Kvng Bipolar Hip 22 Id 40/41mm - [id number] Implanted:Qty: 1 on 05/05/2023 by Idris Almanza MD at [facility] Hip Components Right: Hip [employer] 08/19/2025 [id number] / / [id number] [id number] Implanted:Qty: 1 on 05/05/2023 by Idris Almanza MD at [facility] Right: Hip [employer] 08/25/2027 [id number] / / Femoral Head Implanted:Qty: 1 on 05/05/2023 by Idris Almanza MD at [facility] Right: Hip [employer] 09/15/2031 [id number] / / Explanted Type Area Promos Executive Producer Device Identifier Shelf Expiration Date Model / Serial / Lot System Bone Cement 1 2 Mix - [id number] Explanted:Qty: 1 on 05/05/2023 by Idris Almanza MD at [facility] Cement Implant Right: Hip [employer] 12/21/2025 [id number] / / Femoral Cement Preparation Kit Explanted:Qty: 1 on 05/05/2023 by Idris Almanza MD at [facility] Right: Hip [employer] 11/25/2027 [id number] / / Insurance MEDICARE PART A MEDICAID * Guarantor: Helga Deanna Stone Account Type Relation to Patient Date of Phone Billing Address [employer] Self 1965 [address] [place] [address] Advance Directives Documents on File Type Date Recorded Patient Inspector Canned Food Reconditioning Expl anation Advance Directives and Livin g [...] 1:37 PM 03/17/2022 7:40 PM Care Teams Security Rep Relationship Specialty Start Date End Date Destinee Rodriguez NP PCP - General NURSE PRACTITIONER 09/08/23
[2025-02-16 16:59] LABS: Base Excess ABG -8.9 mmol/L (0-2); HCO3 ABG 17.1 mmol/L (23-29); Oxygen Saturation ABG 77.2 % (95-97); Oxyhemoglobin 76.4 % (94-100); PCO2 ABG 37.1 mmHg (35-45); PO2 ABG 44.3 mmHg (80-90); pH ABG 7.28 (7.35-7.45)
[2025-02-16 17:02] LABS: Basophils Absolute Auto 0.04 K/mm3 (0.00-0.10); Basophils Percent Auto 0.3 % (0.0-1.0); Hematocrit 34.3 % (35.0-49.0); Hemoglobin 10.6 g/dL (12.0-15.0); Immature Granulocyte Absolute 0.04 K/mm3 (0.00-0.00); Immature Granulocyte Percent A 0.3 % (0.0-0.0); Lymphocytes Absolute Auto 0.34 K/mm3 (1.10-4.50); Lymphocytes Percent Auto 2.9 % (18.0-42.0); Mean Corpuscular HGB Conc 30.9 g/dL (32-36); Mean Corpuscular Volume 90.7 fL (78.0-102.0); Mean Platelet Volume 10.4 fl (9.2-11.8); Monocytes Percent Auto 5.1 % (2.0-11.0); Neutrophils Absolute Auto 10.85 K/mm3 (1.70-7.20); Neutrophils Percent Auto 91.4 % (50.0-70.0); Platelet Count Result 299 K/mm3 (150-420); Red Blood Count 3.78 M/mm3 (4.20-5.40); White Blood Count 11.9 K/mm3 (4.8-10.8)
[2025-02-16 17:15] LABS: Alanine Aminotransferase 14 U/L (6-35); Albumin Level 3.8 g/dL (3.5-5.1); Alkaline Phosphatase 128 U/L (38-126); Anion Gap 10 mmol/L (4-12); Aspartate Amino Transferase 21 U/L (14-36); Bilirubin,Total 0.6 mg/dL (0.2-1.3); Blood Urea Nitrogen 47 mg/dL (7-17); Calcium 8.5 mg/dL (8.4-10.2); Carbon Dioxide 19 mmol/L (22-30); Chloride 111 mmol/L (98-107); Estimated Glomerular Filt Rate 12; Glucose 262 mg/dL (65-110); Lactic Acid Reflex 1.7 mmol/L (0.4-2.0); Lipase 143 U/L (23-300); Osmolality Calculated 311 mOsm/kg (285-295); Potassium 4.5 mmol/L (3.4-5.0); Sodium 140 mmol/L (137-145); Total Protein 7.2 g/dL (6.3-8.2)
[2025-02-16 17:16] LABS: INR 0.9; Partial Thromboplastin Time 23.1 Sec (23.9-30.70); Prothrombin Time 9.9 Seconds (9.50-12.1)
[2025-02-16 17:17] LABS: Device ROOM AIR; Modified Allen's Test Pass; Site Drawn LEFT RADIAL
[2025-02-16 17:27] LABS: NT Pro B Type Natriuretic Pept 12700 pg/mL (19.9-100); Troponin I 0.019 ng/mL (0.000-0.034)
[2025-02-16 17:31] LABS: Add Urine Microscopic? YES; Appearance Urine Sl Cloudy (Clear); Bilirubin Urine Negative (Negative); Blood Urine 1+ (Negative); Color Urine Light Yellow (Yellow); Glucose Urine UA 2+ (Negative); Ketones Urine Negative (Negative); Leukocyte Esterase Ur 2+ LEU/UL (Negative); Nitrate Urine Negative (Negative); Protein Urine 2+ (Negative); Specific Grav Ur 1.015 (1.010-1.020); Urobilinogen Urine 0.2 mg/dL (0.2-1.0)
[2025-02-16 17:34] LABS: Bacteria Urine 4+ /hpf; Squamous Epithelial Cell Urine Rare /hpf (Few)
--- NOTE | 2025-02-16 19:06 | PC.NURSE ---
report to krystina huizar . spoke with esther cortez. has no request for specific facility, where ever she needs to go.
--- NOTE | 2025-02-16 19:07 | PC.NURSE ---
RT here to place bipap on pt. Pt is alert and answers questions when asked. ERP and pt want to try to go to [facility] if unable to get into [place] for transfer. [facility] notified.
[2025-02-16] MEDS: AZITHROMYCIN 500 MG/NS 250 ML 500 MG/250 ML BAG 250 MG IVPB (19:24)
[2025-02-16] MEDS: diphenhydrAMINE HCl INJ 50 MG/ML VIAL 25 MG IV PUSH (19:33)
[2025-02-16] MEDS: METOCLOPRAMIDE HCL INJ 10 MG/2 ML VIAL IV PUSH (19:33)
[2025-02-16] MEDS: SODIUM CHLORIDE 0.9% IV 1,000 ML 125 ML IV CONT (20:44)
--- NOTE | 2025-02-18 14:32 | PC.NURSE ---
preliminary urine culture report reviewed, >100,000 enterococcus
--- NOTE | 2025-02-20 16:39 | PC.NURSE ---
PT DISCHARGED FROM [place], SPOKE WITH TATYANA. CLARIFIED DISCHARGE MEDICATIONS/INFORMED OF URINE CULTURE RESULTS. PT HAS RX FOR LINEZOLID/AMOXICILLIN/DOXYCYCLINE. NO CHANGE NEEDED.
== END 2025-02-16 21:22 | disposition short-term general hospital (02) ==
PROVIDERS: Emergency Provider Emergency Medicine
DX: J96.01 Acute respiratory failure with hypoxia (principal); N39.0 Urinary tract infection, site not specified; N17.9 Acute kidney failure, unspecified; E78.5 Hyperlipidemia, unspecified; I13.0 Hypertensive heart and chronic kidney disease with heart failure and stage 1 through stage 4 chronic kidney disease, or unspecified chronic kidney disease; I50.9 Heart failure, unspecified; N18.4 Chronic kidney disease, stage 4 (severe); E11.22 Type 2 diabetes mellitus with diabetic chronic kidney disease; Z79.899 Other long term (current) drug therapy
CPT/HCPCS: 36415; 36600; 71045; 74176; 80053; 81001; 82805; 83605; 83690; 83880; 84484; 85025; 85610; 85730; 87077; 87086; 87088; 87181; 93005; 96361; 96365; 96367; 96375; 99285; J0456; J0696; J1200; J2405; J2765; J7030

== ENCOUNTER 2025-02-16 22:39 | Inpatient (IN) | payer MEDICARE, MEDICAID, OTHER, SELFPAY ==
--- NOTE | ~2025-02-16 | XR_ITS ---
XR abdomen/kub 1V Ordering provider: Dax Olivera MD History: . Constipation/Vomiting . Comparison: None. FINDINGS: BOWEL: Nonobstructive bowel gas pattern. ORGANOMEGALY: None. SIGNIFICANT PATHOLOGIC CALCIFICATIONS: None. OTHER: No free air is seen under the diaphragm. Right hip arthroplasty. Left hip severe osteoarthritic changes. Degenerative the spine. IMPRESSION: NO ACUTE ABDOMINAL FINDINGS. Reviewed, dictated and finalized at location A.
[2025-02-16 22:00] VITALS: BP 150/71; PULSE 97; RESP 16; TEMP 36.8; O2SAT 100; BMI 20.9
--- OUTSIDE RECORDS SUMMARY | 2025-02-16 22:02 | XMS_ITS | Encounter Summary ---
Author Organization [facility] Address [address] [place] [address] Care Team Providers Care Railroad Dining Car Steward/Stewardess Name Role Phone Destinee Rodriguez NP Primary Care Provider [phone] Encounter Details Date Type Department Care Team (Late st Contact Info) Description 09/17/2023 Hospital Follow-up Call [facility] Cardi[facility] Care Unit [address] [place] [address] Xiomara Schmitt RN Social History Tobacco Use Types Packs/Day Years Used Date Smoking Tobacco: Never Smokeless Tobacco: Never [facility] Utilities Answer Date Recorded In the [...] place to sleep or slept in a group home (including now)? No 09/08/2023 Comments Unknown Sex and Gender Information Value Date Recorded Sex Assigned at Female 10/22/2024 9:59 PM BLOCKLAYER Legal Sex Female 9:54 PM BLOCKLAYER Gender Identity Not on file Sexual Orientation [...] Assessment Author Status No 09/08/2023 3:58 AM BLOCKLAYER Ever Yancey RN Active documented as of this encounter Mental Status * Because of a physical, mental, or emotional condition, do you have serious difficulty concentrating, remembering, or making decisions? Answer Entry Date Author Status No 09/08/2023 3:58 AM BLOCKLAYER Ever Yancey RN Active documented in this [...] Rule Out 10/22/2024 10/22/2024 10/22/2024 10:40 PM BLOCKLAYER Respiratory Rule Out 10/22/2024 10/22/2024 025 10:41 PM BLOCKLAYER documented as of this encounter Care Teams Railroad Dining Car Steward/Stewardess Relationship Specialty Start Date End Date Destinee Rodriguez, REKHA PCP - General NURSE PRACTITIONER 09/08/23 documented as of this encounter
--- OUTSIDE RECORDS SUMMARY | 2025-02-16 22:02 | XMS_ITS | Encounter Summary ---
Author Organization [facility] Address [address] [place] [address] Care Team Providers Care Pass Worker Name Role Phone None, Provider MD Primary Care Provider Jyothi treviño Non-Staff, Provider Primary Care Provider Luis Manuel Osborne MD Primary Care Provider [phone] Destinee Rodriguez NP Primary Care Provider [phone] Reason for Referral * Surgical (Routine) - Closed Specialty Diagnoses / Procedures Referred By Ashlie dunbar Referred To Contact Diagnoses Osteomyelitis Procedures Case request operating room: BONE BIOPSY-FOOT Jaxon August MD [facility]. [facility] [address] [place] [address] Phone: tel: fax: [facility] [place] [address] Phone: tel: Referral ID Status Reason Start Date Expiration Date Visits Re quested Visits Authorized [id number] Closed 03/09/2022 04/06/2023 1 1 Encounter Details Date Type Department Care Team (Late st Contact Info) Description 03/06/2022 Prep for Procedure [facility] [address] [place], [place] [id number] Jaxon August MD [facility]. [address] [place] [address] Social History Tobacco Use Types Packs/Day Years Used Date Smoking Tobacco: Never Smokeless Tobacco: Never Comments Unknown Sex and Gender Information Value Date Recorded Sex Assigned at Female 10/22/2024 9:59 PM DRIVER EDUCATION INSTRUCTOR Legal Sex Female 9:54 PM DRIVER EDUCATION INSTRUCTOR Gender Identity Not on file Sexual Orientation [...] AM CDT Gómez Martin RN Active * Mitchell Suicide Severity Rating Scale (Screener/Recent Self-Report) Question [...] Rule Out 10/22/2024 10/22/2024 10/22/2024 10:40 PM DRIVER EDUCATION INSTRUCTOR Respiratory Rule Out 10/22/2024 10/22/2024 025 10:41 PM DRIVER EDUCATION INSTRUCTOR documented as of this encounter Care Teams Pass Worker Relationship Specialty Start Date End Date None, Provider, PCP - General 08/20/21 06/01/22 Non-Staff, Provider PCP - General UNKNOWN PHYSICIAN SPECIALTY 06/02/22 05/07/23 Luis Manuel Mccall MD [facility] [place] [address] PCP - General FAMILY PRACTICE 05/08/23 09/07/23 Dest[facility] [place] [facility] [place] [address] PCP - General NURSE PRACTITIONER 09/08/23 documented as of this encounter
--- OUTSIDE RECORDS SUMMARY | 2025-02-16 22:02 | XMS_ITS | Clinical Summary ---
Author Organization [facility] Address [address] [place] [address] Care Team Providers Care Ink Blender Name Role Phone Destinee Rodriguez NP Primary Care Provider [phone] Allergies No known active allergies Medications amLODIPine [...] heart failure with left ventricular diastolic dysfunction ([facility] HHS/HCC),Hypoxic respiratory failure ([facility] HHS/HCC) 1 Device by Nasal route continuous. Nasal Cannula. 2L continuous oxygen. Portable tank and stationary concentrator 1 Device 4 Active OXYGEN CONCENTRATOR SUPPLY, DME,Indications: Congestive heart failure with left ventricular diastolic dysfunction (CMS/HCC HHS/HCC),Hypoxic respiratory failure (CMS/[facility] HHS/HCC) 1 Device by Nasal route [...] failure wit h left ventricular diastolic dysfunction ([facility] HHS/HCC) 09/13/2023 Hypoxic respiratory failure ([facility] HHS/HCC) Fracture of femoral neck, right ([facility] ) 05/04/2023 Osteomyelitis ([facility]) 02/26/2022 Immunizations Immunization Administration Dates Next [...] e alcohol) [facility] Utilities Answer Date Recorded In the past 12 months has e [employer], gas, oil, or water [employer] threatened to shut off services in your [...] place to sleep or slept in a usp (including now)? No 09/08/2023 Housing Stability Vital [...] were you homeless or living in a usp (including now)? Patient declined 10/23/2024 Comments No Sex and Gender Information Value Date Recorded Sex Assigned at Female 10/22/2024 9:59 PM MACHINE UMBRELLA TIPPER Legal Sex Female 9:54 PM MACHINE UMBRELLA TIPPER Gender Identity Not on file Sexual Orientation Not on file Last Filed Vital Signs Vital Sign Reading Time Taken Comments Blood Pressure 107/54 10/24/2024 8:00 AM MACHINE UMBRELLA TIPPER Pulse 77 10/24/2024 8:00 AM MACHINE UMBRELLA TIPPER Temperature 36 C (96.8 F) 10/24/2024 8:00 AM MACHINE UMBRELLA TIPPER Respiratory Rate 16 10/24/2024 8:00 AM MACHINE UMBRELLA TIPPER Oxygen Saturation 100% 10/24/2024 8:00 AM MACHINE UMBRELLA TIPPER Inhaled Oxygen Concentration - - Weight 49.4 kg (109 lb) 10/23/2024 12:00 PM MACHINE UMBRELLA TIPPER Height 149.9 cm (4' 11) 10/23/2024 12:00 PM MACHINE UMBRELLA TIPPER Body Mass Index 22.02 10/23/2024 12:00 PM MACHINE UMBRELLA TIPPER Plan of Treatment Health Maintenance Due Date [...] Colón, BERNIE Medical Devices Implanted Type Area Test Driller Device Identifier Shelf Expiration Date Model / Serial / Lot Cement Bone Biomet 40gm - [id number] Implanted:Qty: 2 on 05/05/2023 by Idris Almanza MD at [facility] Cement Implant Right: Hip [employer] 08/19/2025 [id number] / / Plug Cement Kvng Gabriel Medullary 20mm - [id number] Implanted:Qty: 1 on 05/05/2023 by Idris Almanza MD at [facility] Cement Implant Right: Hip [employer] 01/11/2027 [id number] / / Shell Kvng Bipolar 41mm Od - [id number] Implanted:Qty: 1 on 05/05/2023 by Idris Almanza MD at [facility] Hip Components Right: Hip [employer] 12/17/2025 [id number] / / Liner Kvng Bipolar Hip 22 Id 40/41mm - [id number] Implanted:Qty: 1 on 05/05/2023 by Idris Almanza MD at [facility] Hip Components Right: Hip [employer] 08/19/2025 [id number] / / [id number] Stem 1214 Implanted:Qty: 1 on 05/05/2023 by Idris Almanza MD at [facility] Right: Hip [employer] 08/25/2027 [id number] / / Femoral Head Implanted:Qty: 1 on 05/05/2023 by Idris Almanza MD at [facility] Right: Hip [employer] 09/15/2031 [id number] / / Explanted Type Area Test Driller Device Identifier Shelf Expiration Date Model / Serial / Lot System Bone Cement 1 2 Mix - [id number] Explanted:Qty: 1 on 05/05/2023 by Idris Almanza MD at [facility] Cement Implant Right: Hip [employer] 12/21/2025 [id number] / / Femoral Cement Preparation Kit Explanted:Qty: 1 on 05/05/2023 by Idris Almanza MD at [facility] Right: Hip [employer] 11/25/2027 5049-55 / / Insurance MEDICARE PART A MEDICAID * Guarantor: Helga Deanna Stone Account Type Relation to Patient Date of Phone Billing Address [employer] Self 1965 [address] [place] [address] Advance Directives Documents on File Type Date Recorded Patient Anesthesiology Fellow Expl anation Advance Directives and Livin g [...] 1:37 PM 03/17/2022 7:40 PM Care Teams Ink Blender Relationship Specialty Start Date End Date Destinee Rodriguez NP PCP - General NURSE PRACTITIONER 09/08/23
[2025-02-16 22:14] VITALS: BMI 20.9
--- NOTE | 2025-02-16 22:15 | ADMGEN ---
This patient, Deanna Partida, was admitted to IMU Room 203-01. Patient/family oriented to hospital policies and general routines including ID bracelet, bed and alarms, visiting hours, pain management, procedures, bathroom and other care routines, personal items, smoking policy, room service/diet, and visiting hours. Information on how to activate the Rapid Response Team has been discussed. Patient/Family are encouraged to report perceived risks to care and to ask questions if they do not understand what they are told or what they should do.
[2025-02-16 22:21] VITALS: O2SAT 99
--- NOTE | 2025-02-16 22:35 | P.HP_ITS ---
H&P: HPI History of Present Illness Date/Time: 02/16/25 23:15 Chief Complaint: Abdominal pain. Narrative: This is a 59-year-old female with history of gastroesophageal reflux disease, ulcers, chronic kidney disease stage 4 with anemia of chronic kidney disease, insulin-dependent type 2 diabetes mellitus, hypertension, and congestive heart failure type unknown (poorly documented and patient denies) who presented to an outside emergency department with complaints of abdominal pain. She has not been feeling well for 3 days with symptoms to include nausea, nonbloody and nonbilious emesis, watery diarrhea, diffuse abdominal pain which she has difficulties describing, and belching. She is feeling perhaps a bit short of breath and has an occasional cough which is nonproductive. She denies sick contacts, fever, sinus congestion, sore throat, chest pain, dysuria, and edema. She also denies sick contacts and concerns for aspiration. She is unsure if there has been any blood in her stool or emesis as she is legally blind. At the outside facility: Vital signs on arrival include a temperature of 98?, blood pressure 120/60, pulse 89, respiratory rate 33, SpO2 86%. Labs were significant for WBC count of 11.9, hemoglobin 10.6, chloride 111, carbon dioxide 19, anion gap 10, BUN 47, creatinine 3.71, glucose 262, lactic acid 1.8, proBNP 25570. Urinalysis was positive for 2+ protein, 2+ glucose, 1+ blood, 2+ leukocyte esterase, 3 to 5 RBC, 10 to 15 WBC, 4+ bacteria, and rare squamous cells. Chest x-ray showed bilateral sent 3 lobar nodular ground-glass opacities. CT of the abdomen and pelvis showed findings which may represent hypersensitivity pneumonitis, respiratory bronchitis in smokers, or infectious airway disease, patulous esophagus, small hiatal hernia, mild urinary bladder wall thickening, enlarged uterus, presumably secondary to fibroids. She was placed on oxygen and was given a dose of azithromycin ceftriaxone for presumed pneumonia. Lateral transfer was initiated to [facility]. After she arrived to the facility and during the nursing assessment, the patient reported that she was hospitalized at the [facility] a couple of weeks ago with suicidal ideation. She told the nurse that she was still suicidal and had a plan but would not tell her the plan. The patient was transferred to ICU for suicide precautions and close monitoring . At the time of my evaluation she denies thoughts of suicide and does not have a plan. Review of Systems Review of Systems: 12 systems were reviewed and are negativ e except for as per HPI. 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 Code status: Full code. Smoking status: Never smoker Second hand tobacco smoke exposure: No Additional smoking assessment comments: Per patient her spouse smokes in the home. Alcohol intake: never Substance use: never Substance use type: does not use Do You Feel Safe in your Home?: Yes Lack of Transportation: No Lack of Food: Never True Current Housing: I Have Housing Concerned About Future Housing: No Difficulty Paying Gas/Electric Bills: No Difficulty Paying for Meds: No Currently Unemployed: No Education: Decline to Answer Difficulty w/ Childcare or Family Care: No Living arrangements: with family Additional living arrangements comments: Lives with in [place]. They have 2 grown children. Occupation/Education: retired Additional occupation/education comments: Was in the [employer]. Spiritual care concerns: No Agree to blood products: Yes Meds Home Medications and Allergies Home Medications ?Medication ?Instructions ?Recorded ?Confirmed ?Type amlodipine 10 mg tablet 10 mg PO DAILY 12/18/24 12/21/24 History atorvastatin 80 mg tablet (Lipitor) 80 mg PO HS 12/18/24 12/21/24 History bumetanide 1 mg tablet 1 mg PO DAILY 12/18/24 12/21/24 History darbepoetin jeffrey-albumin 40 mcg/mL 40 mcg subcut MONTHLY PRN low hgb 12/18/24 12/21/24 History in albumin injection gabapentin 100 mg capsule 100 mg PO BID 12/18/24 12/21/24 History hydralazine 10 mg tablet 10 mg PO TID 12/18/24 12/21/24 History isosorbide dinitrate 10 mg tablet 20 mg PO BID 12/18/24 12/21/24 History sertraline 50 mg tablet 50 mg PO Q24H 12/18/24 12/21/24 History sodium bicarbonate 650 mg tablet 650 mg PO BID 12/18/24 12/21/24 History insulin glargine 100 unit/mL (3 10 unit (0.1 mL) subcut QPM #15 mL 12/24/24 Rx mL) subcutaneous pen (Lantus Solostar U-100 Insulin) pantoprazole 40 mg tablet,delayed 40 mg PO Q12HR #60 tabs 12/24/24 Rx release sucralfate 100 mg/mL oral 1,000 mg (10 mL) PO ACHS #1,000 mL 12/24/24 Rx suspension famotidine 40 mg tablet 40 mg PO Q12H 02/16/25 History metoclopramide HCl 10 mg tablet 5 mg PO Q6H 02/16/25 History Allergies Allergy/AdvReac Type Severity Reaction Status Date / Time No Known Allergies Allergy Unknown Verified 02/16/25 16:26 Vital Signs Vital Signs - 24 hr 02/16/25 22:00 02/16/25 22:21 Temperature 98.2 F Pulse Rate 97 Respiratory Rate 16 Blood Pressure 150/71 H Pulse Oximetry 100 99 Oxygen Delivery Nasal Cannula Oxygen Flow Rate 2 Exam Narrative: General: Chronically ill-appearing female in the semi-Abernathy position in bed. She does not appear in any acute distress and is nontoxic in appearance. Weight: 49.1 kg. BMI: 21.1. HEENT: She keeps her eyes closed. Tacky mucous membranes. Neck: Supple. Respiratory: Respirations are nonlabored. Lung sounds are a bit coarse peer Cardiovascular: Regular rate and rhythm with S1-S2. Gastrointestinal: Abdomen is soft and nondistended with positive bowel sounds. She is a bit tender to palpation epigastric region. Occasional belching. No guarding or rebound tenderness. Skin: Warm and dry. Extremities: No cyanosis, clubbing, or significant edema. Radial and pedal pulses intact. Neurological: Alert. Speech is clear. No facial asymmetry. Generalized weakness without gross focal findings. Psychiatric: Pleasant and cooperative with appropriate mood and flat affect. H&P: Results Labs Labs: Labs from outside facility: 02/16/25 02/16/25 Range/Units 16:56 17:00 WBC 11.9 H (4.8-10.8) K/mm3 RBC 3.78 L (4.20-5.40) M/mm3 Hgb 10.6 L (12.0-15.0) g/dL Hct 34.3 L (35.0-49.0) % MCV 90.7 (78.0-102.0) fL MCH 28.0 (27.0-31.0) pg MCHC 30.9 L (32-36) g/dL RDW 14.0 (11.6-14.4) % Plt Count 299 (150-420) K/mm3 MPV 10.4 (9.2-11.8) fl Immature Gran % (Auto) 0.3 H (0.0-0.0) % Neut % (Auto) 91.4 H (50.0-70.0) % Lymph % (Auto) 2.9 L (18.0-42.0) % Gage % (Auto) 5.1 (2.0-11.0) % Eos % (Auto) 0.0 L (1.0-6.0) % Baso % (Auto) 0.3 (0.0-1.0) % Lymph # (Auto) 0.34 L (1.10-4.50) K/mm3 Gage # (Auto) 0.60 (0.10-0.90) K/mm3 Eos # (Auto) 0.00 L (0.02-0.50) K/mm3 Baso # (Auto) 0.04 (0.00-0.10) K/mm3 Abs Immat Gran (auto) 0.04 H (0.00-0.00) K/mm3 Absolute Neuts (auto) 10.85 H (1.70-7.20) K/mm3 Absolute Nucleated RBC 0.00 (0.00-0.00) K/mm3 Nucleated RBC % 0.0 (0-0.0) % PT 9.9 (9.50-12.1) Seconds INR 0.9 APTT 23.1 L (23.9-30.70) Sec Sodium 140 (137-145) mmol/L Potassium 4.5 (3.4-5.0) mmol/L Chloride 111 H (98-107) mmol/L Carbon Dioxide 19 L (22-30) mmol/L Anion Gap 10 (4-12) mmol/L BUN 47 H D (7-17) mg/dL Creatinine 3.71 H (0.7-1.0) mg/dL Estim Creat Clear Calc Not Reportable Estimated GFR 12 L (59 - ) Glucose 262 H (65-110) mg/dL Calculated Osmolality 311 H (285-295) mOsm/kg Lactic Acid 1.7 (0.4-2.0) mmol/L Calcium 8.5 (8.4-10.2) mg/dL Total Bilirubin 0.6 (0.2-1.3) mg/dL AST 21 (14-36) U/L ALT 14 (6-35) U/L Alkaline Phosphatase 128 H (38-126) U/L Troponin I 0.019 (0.000-0.034) ng/mL NT-Pro-B Natriuret Pep 25109 H (19.9-100) pg/mL Total Protein 7.2 (6.3-8.2) g/dL Albumin 3.8 (3.5-5.1) g/dL Lipase 143 (23-300) U/L Urine Color Light yellow (Yellow) Urine Appearance Sl cloudy A (Clear) Urine pH 6.0 (5.0-8.0) Ur Specific [place] 1.015 (1.010-1.020) Urine Protein 2+ H (Negative) Urine Glucose (UA) 2+ H (Negative) Urine Ketones Negative (Negative) Ur Blood (Man) 1+ H (Negative) Urine Nitrate Negative (Negative) Urine Bilirubin Negative (Negative) Urine Urobilinogen 0.2 (0.2-1.0) mg/dL Leukocyte Esterase Rfl 2+ H (Negative) BRIAN/UL Urine RBC 3-5 H (0-2) /hpf Urine WBC 10-15 H (0-3) /hpf Ur Squamous Epith Cells Rare (Few) /hpf Urine Bacteria 4+ H (None) /hpf ABG ABG results: Obtained at outside facility: 02/16/25 16:56 Puncture Site Left radial ABG pH 7.28 L ABG pCO2 37.1 ABG pO2 44.3 L ABG HCO3 17.1 L ABG O2 Saturation 77.2 L ABG Base Excess -8.9 L Oxyhemoglobin 76.4 L O2 Delivery Device Room air O2 Liters/Min 0.[address] scan - abdomen: Radiologist's impression: Pulmonary centrilobular ground glass opacities may represent hypersensitivity pneumonitis, respiratory bronchitis in smokers, or infectious airways disease. Small hiatal hernia. Patulous esophagus. Mild urinary bladder wall thickening, correlate with urinalysis. Large uterus, presumably secondary to fibroids. Assessment and Plan Assessment and plan (1) Pneumonia: Code(s): J18.9 - Pneumonia, unspecified organism Status: Acute (2) Acute on chronic kidney failure: Qualifiers: Acute renal failure type: unspecified Chronic kidney disease stage: uns pecified stage Qualified Code(s): N17.9 - Acute kidney failure, unspecified; N18.9 - Chronic kidney disease, unspecified Code(s): N17.9 - Acute kidney failure, unspecified; N18.9 - Chronic kidney disease, unspecified Status: Acute (3) Suicidal ideation: Code(s): R45.851 - Suicidal ideations Status: Acute (4) Insulin dependent type 2 diabetes mellitus: Code(s): E11.9 - Type 2 diabetes mellitus without complications; Z79.4 - rat exterminator (current) use of insulin Status: Acute (5) Heart failure, type unknown: Code(s): I50.9 - Heart failure, unspecified Status: Acute (6) Chronic anemia: Code(s): D64.9 - Anemia, unspecified Status: Acute Plan The patient presented to the outside facility for evaluation of nausea, vomiting, diarrhea, abdominal pain, and mild shortness of breath for several days as detailed above. Labs, imaging, EKG, and all reports were personally reviewed. Preliminary workup at the outside ED revealed an afebrile patient with a WBC count of 11.9, a mild increase in creatinine from baseline, and imaging showing pulmonary central lobar ground-glass opacities which may very well be sales representative uniforms of pneumonia. She has been started on ceftriaxone and doxycycline. Attempt sputum for culture. DuoNebs available as needed. She looks a bit dry on exam and her worsening renal function is likely related to dehydration given poor oral intake, vomiting, and diarrhea. Avoid over-hydration given reported history of heart failure, type unknown. She told the admitting nurse that she had a suicidal ideation with a plan however is adamant that she is not suicidal and has no plan. Infection was hospitalized at the [facility] couple of weeks ago for the same and she states that she is in a better mental position at this time. Nonetheless, we will consult crisis. I do not think she needs a sitter at this time. Continue basal insulin. Initiate sliding scale insulin, Accu-Cheks, and hypoglycemic protocol. Anemia stable on review of previous labs. Her home medications will be reviewed and resumed as appropriate. Findings and treatment plan were discussed with the patient. Questions were solicited and answered to satisfaction. The patient's medical management will be taken over by the hospitalist team in a.m. Quality VTE Prophylaxis VTE prophylaxis: mechanical ordered If No VTE Prophylaxis Answer both mechanical and pharmacologic: Reason no pharmacologic proph: medical contraindication (recent GI bleeding) Hospitalist MIPS Advance Care Plan I have confirmed that the patient's Advanced Care Plan is present, code status is documented, or surrogate decision maker is listed in patient medical record.: Yes Medication Reconciliation I have utilized all available resources to obtain, update and review the patients current medications (includes all prescriptions, OTC, herbals, cannabis, and nutritional supplements).: Yes
--- OUTSIDE RECORDS SUMMARY | 2025-02-16 22:45 | XMS_ITS | Encounter Summary ---
Author Organization [facility] Address [address] [place] [address] Care Team Providers Care Property Officer Name Role Phone Destinee Rodriguez NP Primary Care Provider [phone] Encounter Details Date Type Department Care Team (Late st Contact Info) Description 09/17/2023 Hospital Follow-up Call [facility] Cardi[facility] Care Unit [address] [place] [address] Xiomara Schmitt RN Social History Tobacco Use Types Packs/Day Years Used Date Smoking Tobacco: Never Smokeless Tobacco: Never [facility] Utilities Answer Date Recorded In [...] in a intermediate (including now)? No 09/08/2023 Comments Unknown Sex and Gender Information Value Date Recorded Sex Assigned at Female 10/22/2024 9:59 PM SENIOR PLANNING ANALYST Legal Sex Female 9:54 PM SENIOR PLANNING ANALYST Gender Identity Not on file Sexual Orientation [...] Assessment Author Status No 09/08/2023 3:58 AM SENIOR PLANNING ANALYST Ever Yancey RN Active documented as of this encounter Mental Status * Because of a physical, mental, or emotional condition, do you have serious difficulty concentrating, remembering, or making decisions? Answer Entry Date Author Status No 09/08/2023 3:58 AM SENIOR PLANNING ANALYST Ever Yancey RN Active documented in this [...] Rule Out 10/22/2024 10/22/2024 10/22/2024 10:40 PM SENIOR PLANNING ANALYST Respiratory Rule Out 10/22/2024 10/22/2024 025 10:41 PM SENIOR PLANNING ANALYST documented as of this encounter Care Teams Property Officer Relationship Specialty Start Date End Date Destinee Rodriguez, REKHA PCP - General NURSE PRACTITIONER 09/08/23 documented as of this encounter
--- OUTSIDE RECORDS SUMMARY | 2025-02-16 22:45 | XMS_ITS | Encounter Summary ---
Author Organization [facility] Address [address] [place] [address] Care Team Providers Care Floor Manager Name Role Phone None, Provider MD Primary Care Provider Jyothi treviño Non-Staff, Provider Primary Care Provider Luis Manuel Osborne MD Primary Care Provider [phone] Destinee Rodriguez NP Primary Care Provider [phone] Reason for Referral * Surgical (Routine) - Closed Specialty Diagnoses / Procedures Referred By Ashlie dunbar Referred To Contact Diagnoses Osteomyelitis Procedures Case request operating room: BONE BIOPSY-FOOT Jaxon August MD [facility]. [facility] [address] [place] [address] Phone: tel: fax: [facility] [place] [address] Phone: tel: Referral ID Status Reason Start Date Expiration Date Visits Re quested Visits Authorized [id number] Closed 03/09/2022 04/06/2023 1 1 Encounter Details Date Type Department Care Team (Late st Contact Info) Description 03/06/2022 Prep for Procedure [facility], [facility] [address] [place], [place] [id number] Jaxon August MD [facility]. [address] [place] [address] Social History Tobacco Use Types Packs/Day Years Used Date Smoking Tobacco: Never Smokeless Tobacco: Never Comments Unknown Sex and Gender Information Value Date Recorded Sex Assigned at Female 10/22/2024 9:59 PM PROFESSOR OF APOLOGETICS Legal Sex Female 9:54 PM PROFESSOR OF APOLOGETICS Gender Identity Not on file Sexual Orientation [...] AM CDT Gómez Martin RN Active * [place] Suicide Severity Rating Scale (Screener/Recent Self-Report) Question [...] Rule Out 10/22/2024 10/22/2024 10/22/2024 10:40 PM PROFESSOR OF APOLOGETICS Respiratory Rule Out 10/22/2024 10/22/2024 025 10:41 PM PROFESSOR OF APOLOGETICS documented as of this encounter Care Teams Floor Manager Relationship Specialty Start Date End Date None, Provider, PCP - General 08/20/21 06/01/22 Non-Staff, Provider PCP - General UNKNOWN PHYSICIAN SPECIALTY 06/02/22 05/07/23 Luis Manuel Mccall MD [facility] [place] [address] PCP - General FAMILY PRACTICE 05/08/23 09/07/23 Destinee Rodriguez NP [facility] [address] PCP - General NURSE PRACTITIONER 09/08/23 documented as of this encounter
--- OUTSIDE RECORDS SUMMARY | 2025-02-16 22:45 | XMS_ITS | Clinical Summary ---
Author Organization [facility] Address [address] [place] [address] Care Team Providers Care Weld Fitter Name Role Phone Destinee Rodriguez NP Primary Care Provider [phone] Allergies No known active allergies Medications amLODIPine [...] heart failure with left ventricular diastolic dysfunction ([facility] HHS/HCC),Hypoxic respiratory failure ([facility] HHS/HCC) 1 Device by Nasal route continuous. Nasal Cannula. 2L continuous oxygen. Portable tank and stationary concentrator 1 Device 4 Active OXYGEN CONCENTRATOR SUPPLY, DME,Indications: Congestive heart failure with left ventricular diastolic dysfunction (CMS/HCC HHS/HCC),Hypoxic respiratory failure ([facility] HHS/HCC) 1 Device by Nasal [...] failure wit h left ventricular diastolic dysfunction ([facility] HHS/HCC) 09/13/2023 Hypoxic respiratory failure ([facility] HHS/HCC) Fracture of femoral neck, right ([facility] ) 05/04/2023 Osteomyelitis ([facility]) 02/26/2022 Immunizations Immunization Administration Dates Next Due [...] drink = 0.6 oz pur e alcohol) [facility] Utilities Answer Date Recorded In the past 12 months has e [employer], gas, oil, or water avocarrot threatened to shut off services in your [...] place to sleep or slept in a mcfp (including now)? No 09/08/2023 Housing Stability Vital [...] were you homeless or living in a mcfp (including now)? Patient declined 10/23/2024 Comments No Sex and Gender Information Value Date Recorded Sex Assigned at Female 10/22/2024 9:59 PM JOINT CREASER Legal Sex Female 9:54 PM JOINT CREASER Gender Identity Not on file Sexual Orientation Not on file Last Filed Vital Signs Vital Sign Reading Time Taken Comments Blood Pressure 107/54 10/24/2024 8:00 AM JOINT CREASER Pulse 77 10/24/2024 8:00 AM JOINT CREASER Temperature 36 C (96.8 F) 10/24/2024 8:00 AM JOINT CREASER Respiratory Rate 16 10/24/2024 8:00 AM JOINT CREASER Oxygen Saturation 100% 10/24/2024 8:00 AM JOINT CREASER Inhaled Oxygen Concentration - - Weight 49.4 kg (109 lb) 10/23/2024 12:00 PM JOINT CREASER Height 149.9 cm (4' 11) 10/23/2024 12:00 PM JOINT CREASER Body Mass Index 22.02 10/23/2024 12:00 PM JOINT CREASER Plan of Treatment Health Maintenance Due Date [...] Colón, BERNIE Medical Devices Implanted Type Area Auto Emissions Technician Device Identifier Shelf Expiration Date Model / Serial / Lot Cement Bone Biomet 40gm - [id number] Implanted:Qty: 2 on 05/05/2023 by Idris Almanza MD at [facility] Cement Implant Right: Hip [employer] 08/19/2025 [id number] / / Plug Cement Kvng Gabriel Medullary 20mm - [id number] Implanted:Qty: 1 on 05/05/2023 by Idris Almanza MD at [facility] Cement Implant Right: Hip [employer] 01/11/2027 [id number] / / Shell Kvng Bipolar 41mm Od - [id number] Implanted:Qty: 1 on 05/05/2023 by Idris Almanza MD at [facility] Hip Components Right: Hip [employer] 12/17/2025 [id number] / / Liner Kvng Bipolar Hip 22 Id 40/41mm - [id number] Implanted:Qty: 1 on 05/05/2023 by Idris Almanza MD at [facility] Hip Components Right: Hip [employer] 08/19/2025 [id number] / / [id number] Implanted:Qty: 1 on 05/05/2023 by Idris Almanza MD at [facility] Right: Hip [employer] 08/25/2027 [id number] / / Femoral Head Implanted:Qty: 1 on 05/05/2023 by Idris Almanza MD at [facility] Right: Hip [employer] 09/15/2031 [id number] / / Explanted Type Area Auto Emissions Technician Device Identifier Shelf Expiration Date Model / Serial / Lot System Bone Cement 1 2 Mix - [id number] Explanted:Qty: 1 on 05/05/2023 by Idris Almanza MD at [facility] Cement Implant Right: Hip [employer] 12/21/2025 [id number] / / Femoral Cement Preparation Kit Explanted:Qty: 1 on 05/05/2023 by Idris Almanza MD at [facility] Right: Hip [employer] 11/25/2027 [id number] / / Insurance MEDICARE PART A MEDICAID * Guarantor: Helga Deanna Stone Account Type Relation to Patient Date of Phone Billing Address [employer] 1965 [address] [place] [address] Advance Directives Documents on File Type Date Recorded Patient Manager Image Expl anation Advance Directives and Livin g [...] 1:37 PM 03/17/2022 7:40 PM Care Teams Weld Fitter Relationship Specialty Start Date End Date Destinee Rodriguez NP PCP - General NURSE PRACTITIONER 09/08/23
[2025-02-16 23:03] VITALS: PULSE 93; RESP 14; O2SAT 100
--- NOTE | 2025-02-16 23:29 | PC.NURSE ---
This patient, Deanna Partida, was transferred to [ ICU-4] on 02/16/25 at 2329. Personal belongings sent with patient. Report given to [ Argentina Landaverde RN]. Appropriate documentation sent with patient.
--- NOTE | 2025-02-16 23:34 | PCRCNOTE ---
VBG unable to be obtained by wind turbine erector. Therefore, RT unable to process it. Provider may order abg after assessing the patient.
[2025-02-16 23:35] VITALS: PULSE 94; RESP 20; TEMP 37.4
[2025-02-16 23:40] VITALS: BP 151/72; PULSE 91; RESP 20; O2SAT 100
--- NOTE | 2025-02-16 23:52 | PC.NURSE ---
02/16/25 2320 Received report from BERNIE Hairston/NIALL and BERNIE Ontiveros. 02/16/25 2325 Patient arrived to room ICU as IMU overflow for suicidal ideation/risk.
[2025-02-17] VITALS (15 sets, daily range): BP systolic 127–175; BP diastolic 57–79; PULSE 68–91; RESP 18–25; TEMP 36.3–37.7; O2SAT 98–100; BMI 21.1
[2025-02-17 04:50] LABS: Fractional Inspired Oxygen 28 %; HCO3 VBG 20.6 mEq/l (24.0-30.0); PCO2 VBG 35.4 mmHg (42.0-48.0); PO2 VBG 48.6 mmHg (35.0-45.0); pH VBG 7.382 (7.300-7.400)
[2025-02-17 04:52] LABS: Liters per Minute 2.0 LPM
[2025-02-17 05:11] LABS: Hematocrit 30.6 % (37.0-47.0); Hemoglobin 9.4 g/dL (12.0-15.0); Mean Corpuscular HGB Conc 30.7 g/dl (32-36); Mean Corpuscular Hemoglobin 27.4 pg (26-34); Mean Corpuscular Volume 89.2 fl (80-100); Platelet Count Result 277 k/mm3 (150-375); Red Blood Count 3.43 M/mm3 (4.2-5.4); White Blood Count 15.5 K/mm3 (4.5-10.0)
[2025-02-17 05:22] LABS: Anion Gap 10 mmol/L (4-12); Blood Urea Nitrogen 40 mg/dL (7-17); Calcium 8.6 mg/dL (8.4-10.2); Carbon Dioxide 19 mmol/L (22-30); Chloride 114 mmol/L (98-107); Estimated CRCL calculation 11 ml/min; Estimated Glomerular Filt Rate 14; Glucose 133 mg/dL (65-110); Potassium 4.7 mmol/L (3.4-5.0); Sodium 143 mmol/L (137-145)
--- NOTE | 2025-02-17 09:27 | PM.IMPN ---
Progress Note: A&P Assessment and Plan (1) Pneumonia: Code(s): J18.9 - Pneumonia, unspecified organism Status: Acute Assessment and Plan: CT scan suggest pneumonia. Check while PCR Blood cultures are pending She is currently on Rocephin and doxycycline (2) Acute on chronic kidney failure: Qualifiers: Acute renal failure type: unspecified Chronic kidney disease stage: unspecified stage Qualified Code(s): N17.9 - Acute kidney failure, unspecified; N18.9 - Chronic kidney disease, unspecified Code(s): N17.9 - Acute kidney failure, unspecified; N18.9 - Chronic kidney disease, unspecified Status: Acute Assessment and Plan: Acute on chronic kidney injury Will give cautious amount of IV fluids. 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 Monitor (7) UTI (urinary tract infection): Qualifiers: Hematuria presence: without hematuria Urinary tract infection type: acute cystitis Qualified Code(s): N30.00 - Acute cystitis without hematuria Code(s): N39.0 - Urinary tract infection, site not specified Status: Acute Assessment and Plan: UA suggestive UTI. Patient was treated for UTI approximately 2 months ago. She grew VRE at that time Will discuss with ID pharmacist and order appropriate antibiotics Plan DVT prophylaxis -Lovenox Stress ulcer prophylaxis -patient is on PPI at home which will be continued Nutrition -consistent carbohydrate Code Status - Full Code Incentive spirometry Subjective Date/time seen: 02/17/25 Patient states she feels good today and denies any specific complaints. Patient denies fever, chest pain, shortness of breath, cough, nausea vomiting, abdominal pain,, diarrhea, headache or constipation. All other systems were reviewed and were negative. Blood pressure is slightly elevated. Patient has low-grade fever. One-to-one sitter in place. She is on 2 L nasal cannula. Review of Systems Review of Systems: All systems reviewed & are unremarkable except as noted in HPI and below (HPI) Exam Narrative: General: Alert awake She does not appear in any acute distress and is nontoxic in appearance HEENT: She keeps her eyes closed. Neck: Supple. Respiratory: Respirations are nonlabored. Lung sounds are a bit coarse peer Cardiovascular: Regular rate and rhythm with S1-S2. Gastrointestinal: Abdomen is soft and nondistended with positive bowel sounds. No guarding or rebound tenderness. Skin: Warm and dry. Extremities: No cyanosis, clubbing, or significant edema. Radial and pedal pulses on left intact. Right BKA Neurological: Alert. Speech is clear. No facial asymmetry. Generalized weakness without gross focal findings. Moves all 4 extremities AO x3 Psychiatric: Pleasant and cooperative with appropriate mood and flat affect. Objective Data Vital Signs Vital Signs: Vital Signs - 24 hr 02/16/25 22:00 02/16/25 22:21 02/16/25 23:03 Temperature 36.8 C Pulse Rate 97 93 Respiratory Rate 16 14 Blood Pressure 150/71 H Pulse Oximetry 100 99 100 Oxygen Delivery Nasal Cannula Nasal Cannula Oxygen Flow Rate 2 2 Fraction of Inspired Oxygen 02/16/25 23:35 02/16/25 23:40 02/17/25 00:00 Temperature 37.4 C Pulse Rate 94 91 90 Respiratory Rate 20 20 24 H Blood Pressure 151/72 H Pulse Oximetry 100 100 Oxygen Delivery High Flow Nasal Cannula Oxygen Flow Rate 2 Fraction of Inspired Oxygen 02/17/25 00:00 02/17/25 02:00 02/17/25 02:00 Temperature Pulse Rate 91 71 70 Respiratory Rate 19 Blood Pressure 127/57 L Pulse Oximetry 100 Oxygen Delivery Oxygen Flow Rate Fraction of Inspired Oxygen 02/17/25 03:59 02/17/25 04:00 02/17/25 04:00 Temperature 36.6 C Pulse Rate 80 73 73 Respiratory Rate 24 H 20 Blood Pressure 138/58 L Pulse Oximetry 99 99 Oxygen Delivery Nasal Cannula Oxygen Flow Rate 2 Fraction of Inspired Oxygen 02/17/25 04:53 02/17/25 05:55 02/17/25 06:00 Temperature 37.1 C Pulse Rate 76 77 72 Respiratory Rate 20 18 Blood Pressure 158/58 H Pulse Oximetry 99 100 Oxygen Delivery Nasal Cannula Oxygen Flow Rate 2 Fraction of Inspired Oxygen 28 02/17/25 08:00 Temperature 37.7 C H Pulse Rate 69 Respiratory Rate 20 Blood Pressure 154/67 H Pulse Oximetry 99 Oxygen Delivery Oxygen Flow Rate Fraction of Inspired Oxygen Intake/Output Intake/Output: Intake & Output 02/14/25 02/15/25 02/16/25 02/17/25 23:59 23:59 23:59 23:59 Output Total 400 Balance -400 Meds/Results Medications: Active Medications Generic Name Dose Route Start Last Admin Trade Name Freq PRN Reason Stop Dose Admin Acetaminophen 650 mg 02/16/25 22:41 Acetaminophen 325 Mg Tablet PO Q6H PRN Mild Pain (1-3) or Fever Albuterol/Ipratropium 3 ml 02/17/25 06:52 Ipratropium 0.5 Mg/Albuterol Sulfate 2.5 Mg Ampul.Neb 3 Ml INHALATION Q6HRT PRN Shortness Of Breath Or Wheezing Dextrose 12.5 gm 02/16/25 22:41 Dextrose 50% 25 Gm/50 Ml Syringe IV PUSH PRN PRN Hypoglycemia Protocol Doxycycline Hyclate 100 mg 02/17/25 09:00 Doxycycline Hyclate 100 Mg Tablet PO Q12HR [facility] Glucagon 1 mg 02/16/25 22:41 Glucagon For Inj 1 Mg Vial IM PRN PRN Hypoglycemia Protocol Glucose 15 gm 02/16/25 22:41 Glucose Oral Gel 15 Gm Of Glucse In 37.5 Gm Tube PO PRN PRN Hypoglycemia Protocol Dextrose 1,000 mls @ 100 mls/hr 02/16/25 22:41 Dextrose 5% 1,000 Ml IVPB PRN PRN Hypoglycemia Protocol Ceftriaxone Sodium 1 gm in 50 mls @ 100 mls/hr 02/17/25 07:00 Rocephin 1 Gm/Ns 50 Ml IVPB Q24H [facility] Insulin Aspart 2 - 5 units 02/17/25 08:00 Insulin Aspart (*Bkc) 100 Units/Ml SUB-Q TIDWM [facility] Protocol Insulin Aspart 1 - 2 units 02/17/25 21:00 Insulin Aspart (*Bkc) 100 Units/Ml SUB-Q HS [facility] Protocol Labs Labs: Laboratory Results - last 24 hr 07/01/25 07/01/25 07/01/25 00:23 04:45 04:48 WBC 15.5 H RBC 3.43 L Hgb 9.4 L Hct 30.6 L MCV 89.2 MCH 27.4 MCHC 30.7 L RDW 14.4 Plt Count 277 MPV 10.3 VBG pH 7.382 VBG pCO2 35.4 L VBG pO2 48.6 H VBG HCO3 20.6 L O2 Delivery Device Nasal cannula O2 Liters/Min 2.0 FiO2 28 Sodium 143 Potassium 4.7 Chloride 114 H Carbon Dioxide 19 L Anion Gap 10 BUN 40 H Creatinine 3.43 H Estim Creat Clear Calc 11 Estimated GFR 14 L Glucose 133 H POC Capillary Glucose 173 H Calcium 8.6 Phosphorus 02/17/25 02/17/25 05:00 07:18 WBC RBC Hgb Hct MCV MCH MCHC RDW Plt Count MPV VBG pH VBG pCO2 VBG pO2 VBG HCO3 O2 Delivery Device O2 Liters/Min FiO2 Sodium Potassium Chloride Carbon Dioxide Anion Gap BUN Creatinine Estim Creat Clear Calc Estimated GFR Glucose POC Capillary Glucose 105 Calcium Phosphorus 4.0 Quality VTE Prophylaxis VTE prophylaxis: mechanical ordered
[2025-02-17] MEDS: DOXYCYCLINE HYCLATE 100 MG TABLET PO ×2 (09:29→20:12)
[2025-02-17 10:22] LABS: Influenza A QL RT-PCR Negative (Negative); Influenza B QL RT-PCR Negative (Negative); SARS-CoV-2 RNA PCR Negative (Negative)
[2025-02-17 10:58] LABS: MRSA (PCR) NOT DETECTED (NOT DETECTE)
[2025-02-17] MEDS: SODIUM BICARBONATE 8.4% 150 MEQ in WATER, STERILE FOR INJECTION 950 ML 100 MEQ IV CONT ×2 (10:58→22:14)
[2025-02-17] MEDS: LINEZOLID 600 MG TABLET PO ×2 (11:04→20:13)
--- NOTE | 2025-02-17 13:22 | P.CDI_ITS ---
CDI Query Clarification Request BMI: 21.1 Nutritional Diagnostic Statement: Please refer to the comprehensive nutrition assessment for further information. If you agree with diagnosis of Severe protein calorie malnutrition related to recent hospitalization, loss of appetite as evidenced by weight loss 12%/2 months; itnakes <75% needs >1 month; moderate muscle wasting and fat loss. Please specify severity if known: * Mild * Moderate * Severe * Other/Unknown <Sharonda Rangel RN - Last Filed: 02/17/25 13:23> Clarified Diagnosis Clarified Diagnosis: I agree with diagnosis of Severe protein calorie malnutrition related to recent hospitalization, loss of appetite as evidenced by weight loss 12%/2 months; itnakes <75% needs >1 month; moderate muscle wasting and fat loss <Dax Olivera MD - Last Filed: 03/09/25 07:26>
[2025-02-17] MEDS: GABAPENTIN 100 MG CAPSULE PO (16:26)
[2025-02-17] MEDS: ISOSORBIDE DINITRATE 10 MG TABLET 20 MG PO (16:26)
[2025-02-17 18:37] LABS: Magnesium 2.0 mg/dL (1.6-2.3)
--- NOTE | 2025-02-17 18:54 | P.PNIM_ITS ---
Progress Note: A&P Assessment and Plan (1) Pneumonia: Code(s): J18.9 - Pneumonia, unspecified organism Status: Acute (2) Acute on chronic kidney failure: Qualifiers: Acute renal failure type: unspecified Chronic kidney disease stage: unspecified stage Qualified Code(s): N17.9 - Acute kidney failure, unspecified; N18.9 - Chronic kidney disease, unspecified Code(s): N17.9 - Acute kidney failure, unspecified; N18.9 - Chronic kidney disease, unspecified Status: Acute (3) Suicidal ideation: Code(s): R45.851 - Suicidal ideations Status: Acute (4) Insulin dependent type 2 diabetes mellitus: Code(s): E11.9 - Type 2 diabetes mellitus without complications; Z79.4 - terminal block assembler (current) use of insulin Status: Acute (5) Heart failure, type unknown: Code(s): I50.9 - Heart failure, unspecified Status: Acute (6) Chronic anemia: Code(s): D64.9 - Anemia, unspecified Status: Acute Plan The patient presented to the outside facility for evaluation of nausea, vomiting, diarrhea, abdominal pain, and mild shortness of breath for several days as detailed above. Labs, imaging, EKG, and all reports were personally reviewed. Preliminary workup at the outside ED revealed an afebrile patient with a WBC count of 11.9, a mild increase in creatinine from baseline, and imaging showing pulmonary central lobar ground-glass opacities which may very well be sales representative jewelry of pneumonia. She has been started on ceftriaxone and doxycycline. Attempt sputum for culture. DuoNebs available as needed. She looks a bit dry on exam and her worsening renal function is likely related to dehydration given poor oral intake, vomiting, and diarrhea. Avoid over-hydration given reported history of heart failure, type unknown. She told the admitting nurse that she had a suicidal ideation with a plan however is adamant that she is not suicidal and has no plan. Infection was hospitalized [facility] the [facility] couple of weeks ago for the same and she states that she is in a better mental position at this time. Nonetheless, we will consult crisis. I do not think she needs a sitter at this time. Continue basal insulin. Initiate sliding scale insulin, Accu-Cheks, and hypoglycemic protocol. Anemia stable on review of previous labs. Her home medications will be reviewed and resumed as appropriate. Findings and treatment plan were discussed with the patient. Questions were solicited and answered to satisfaction. The patient's medical management will be taken over by the hospitalist team in a.m. Patient presented with with abdominal pain CT scan of abdomen does not show any specific pathology related to her pain. however pain has improved. patient also express suicidal thoughts, once patient medical problems are resolved, will consult crisis team to evaluate the patient, patient will benefit going to inpatient psychiatric [facility]gas. Subjective Date/time seen: 02/17/25 18:54 Interval history: Abdominal pain. H&P-Narrative: This is a 59-year-old female with history of gastroesophageal reflux disease, ulcers, chronic kidney disease stage 4 with anemia of chronic kidney disease, insulin-dependent type 2 diabetes mellitus, hypertension, and congestive heart failure type unknown (poorly documented and patient denies) who presented to an outside emergency department with complaints of abdominal pain. She has not been feeling well for 3 days with symptoms to include nausea, nonbloody and nonbilious emesis, watery diarrhea, diffuse abdominal pain which she has difficulties describing, and belching. She is feeling perhaps a bit short of breath and has an occasional cough which is nonproductive. She denies sick contacts, fever, sinus congestion, sore throat, chest pain, dysuria, and edema. She also denies sick contacts and concerns for aspiration. She is unsure if there has been any blood in her stool or emesis as she is legally blind. At the outside facility: Vital signs on arrival include a temperature of 98?, blood pressure 120/60, pulse 89, respiratory rate 33, SpO2 86%. Labs were significant for WBC count of 11.9, hemoglobin 10.6, chloride 111, carbon dioxide 19, anion gap 10, BUN 47, creatinine 3.71, glucose 262, lactic acid 1.8, proBNP [id number]. Urinalysis was positive for 2+ protein, 2+ glucose, 1+ blood, 2+ leukocyte esterase, 3 to 5 RBC, 10 to 15 WBC, 4+ bacteria, and rare squamous cells. Chest x-ray showed bilateral sent 3 lobar nodular ground-glass opacities. CT of the abdomen and pelvis showed findings which may represent hypersensitivity pneumonitis, respiratory bronchitis in smokers, or infectious airway disease, patulous esophagus, small hiatal hernia, mild urinary bladder wall thickening, enlarged uterus, presumably secondary to fibroids. She was placed on oxygen and was given a dose of azithromycin ceftriaxone for presumed pneumonia. Lateral transfer was initiated to [place]. After she arrived to the facility and during the nursing assessment, the patient reported that she was hospitalized at the [facility] a couple of weeks ago with suicidal ideation. She told the nurse that she was still suicidal and had a plan but would not tell her the plan. The patient was transferred to ICU for suicide precautions and close monitoring . At the time of my evaluation she denies thoughts of suicide and does not have a plan. Patient presented with with abdominal pain CT scan of abdomen does not show any specific pathology related to her pain. however pain has improved. patient also express suicidal thoughts, once patient medical problems are resolved, will consult crisis team to evaluate the patient, patient will benefit going to inpatient psychiatric vargas. Review of Systems Review of Systems: 12 systems were reviewed and are negativ e except for as per HPI. All systems reviewed & are unremarkable except as noted in HPI and below (HPI) Objective Data Vital Signs Vital Signs: Vital Signs - 24 hr 02/16/25 22:00 02/16/25 22:21 02/16/25 23:03 Temperature 36.8 C Pulse Rate 97 93 Respiratory Rate 16 14 Blood Pressure 150/71 H Pulse Oximetry 100 99 100 Oxygen Delivery Nasal Cannula Nasal Cannula Oxygen Flow Rate 2 2 Fraction of Inspired Oxygen 02/16/25 23:35 02/16/25 23:40 02/17/25 00:00 Temperature 37.4 C Pulse Rate 94 91 90 Respiratory Rate 20 20 24 H Blood Pressure 151/72 H Pulse Oximetry 100 100 Oxygen Delivery High Flow Nasal Cannula Oxygen Flow Rate 2 Fraction of Inspired Oxygen 02/17/25 00:00 02/17/25 02:00 02/17/25 02:00 Temperature Pulse Rate 91 71 70 Respiratory Rate 19 Blood Pressure 127/57 L Pulse Oximetry 100 Oxygen Delivery Oxygen Flow Rate Fraction of Inspired Oxygen 02/17/25 03:59 02/17/25 04:00 02/17/25 04:00 Temperature 36.6 C Pulse Rate 80 73 73 Respiratory Rate 24 H 20 Blood Pressure 138/58 L Pulse Oximetry 99 99 Oxygen Delivery Nasal Cannula Oxygen Flow Rate 2 Fraction of Inspired Oxygen 02/17/25 04:53 02/17/25 05:55 02/17/25 06:00 Temperature 37.1 C Pulse Rate 76 77 72 Respiratory Rate 20 18 Blood Pressure 158/58 H Pulse Oximetry 99 100 Oxygen Delivery Nasal Cannula Oxygen Flow Rate 2 Fraction of Inspired Oxygen 02/17/25 08:00 02/17/25 09:00 02/17/25 09:00 Temperature 37.7 C H Pulse Rate 69 68 Respiratory Rate 20 Blood Pressure 154/67 H Pulse Oximetry 99 100 Oxygen Delivery Nasal Cannula Oxygen Flow Rate 2 Fraction of Inspired Oxygen 02/17/25 09:00 02/17/25 10:00 02/17/25 10:00 Temperature Pulse Rate 90 79 Respiratory Rate 20 Blood Pressure Pulse Oximetry 98 99 Oxygen Delivery Nasal Cannula Oxygen Flow Rate 2 Fraction of Inspired Oxygen 28 02/17/25 12:00 02/17/25 16:00 02/17/25 16:00 Temperature 36.3 C L Pulse Rate 77 77 71 Respiratory Rate 25 H Blood Pressure 175/79 H Pulse Oximetry 99 Oxygen Delivery Oxygen Flow Rate Fraction of Inspired Oxygen 02/17/25 18:24 Temperature Pulse Rate Respiratory Rate Blood Pressure Pulse Oximetry 99 Oxygen Delivery Nasal Cannula Oxygen Flow Rate 1 Fraction of Inspired Oxygen Intake/Output Intake/Output: Intake & Output 02/14/25 02/15/25 02/16/25 02/17/25 23:59 23:59 23:59 23:59 Intake Total 2930 Output Total 1350 Balance 1580 Meds/Results Medications: Active Medications Generic Name Dose Route Start Last Admin Trade Name Freq PRN Reason Stop Dose Admin Acetaminophen 650 mg 02/16/25 22:41 Acetaminophen 325 Mg Tablet PO Q6H PRN Mild Pain (1-3) or Fever Albuterol/Ipratropium 3 ml 02/17/25 06:52 Ipratropium 0.5 Mg/Albuterol Sulfate 2.5 Mg Ampul.Neb 3 Ml INHALATION Q6HRT PRN Shortness Of Breath Or Wheezing Amlodipine Besylate 10 mg 02/18/25 09:00 Amlodipine Besylate 10 Mg Tablet PO DAILY COUNTS INCLUDE 234 BEDS AT THE [facility] Aspirin 81 mg 02/18/25 09:00 Aspirin 81 Mg Enteric Tablet PO DAILY COUNTS INCLUDE 234 BEDS AT THE [facility] Atorvastatin Calcium 80 mg 02/17/25 21:00 Atorvastatin 40 Mg Tablet PO HS COUNTS INCLUDE 234 BEDS AT THE [facility] Dextrose 12.5 gm 02/16/25 22:41 Dextrose 50% 25 Gm/50 Ml Syringe IV PUSH PRN PRN Hypoglycemia Protocol Doxycycline Hyclate 100 mg 02/17/25 09:00 02/17/25 09:29 Doxycycline Hyclate 100 Mg Tablet PO 100 mg Q12HR [facility] Administration Gabapentin 100 mg 02/17/25 17:00 02/17/25 16:26 Gabapentin 100 Mg Capsule PO 100 mg BID [facility] Administration Glucagon 1 mg 02/16/25 22:41 Glucagon For Inj 1 Mg Vial IM PRN PRN Hypoglycemia Protocol Glucose 15 gm 02/16/25 22:41 Glucose Oral Gel 15 Gm Of Glucse In 37.5 Gm Tube PO PRN PRN Hypoglycemia Protocol Dextrose 1,000 mls @ 100 mls/hr 02/16/25 22:41 Dextrose 5% 1,000 Ml IVPB PRN PRN Hypoglycemia Protocol Ceftriaxone Sodium 1 gm in 50 mls @ 100 mls/hr 02/17/25 07:00 02/17/25 13:14 Rocephin 1 Gm/Ns 50 Ml IVPB Infused Q24H [facility] Infusion Sodium Bicarbonate 150 meq/ 1,100 mls @ 100 mls/hr 02/17/25 10:00 02/17/25 10:58 Sterile Water IV CONT 02/18/25 00:34 100 mls/hr .Q11H [facility] Administration Insulin Aspart 2 - 5 units 02/17/25 08:00 02/17/25 16:48 Insulin Aspart (*Bkc) 100 Units/Ml SUB-Q Not Given TIDWM COUNTS INCLUDE 234 BEDS AT THE [facility] Protocol Insulin Aspart 1 - 2 units 02/17/25 21:00 Insulin Aspart (*Bkc) 100 Units/Ml SUB-Q HS COUNTS INCLUDE 234 BEDS AT THE [facility] Protocol Isosorbide Dinitrate 20 mg 02/17/25 17:00 02/17/25 16:26 Isosorbide Dinitrate 10 Mg Tablet PO 20 mg BID [facility] Administration Linezolid 600 mg 02/17/25 12:00 02/17/25 11:04 Linezolid 600 Mg Tablet PO 02/23/25 21:01 600 mg Q12HR [facility] Administration Pantoprazole Sodium 40 mg 02/17/25 21:00 Pantoprazole 40 Mg Tablet PO Q12HR COUNTS INCLUDE 234 BEDS AT THE [facility] Sodium Bicarbonate 1,300 mg 02/18/25 17:00 Sodium Bicarbonate Tab 650 Mg Tablet PO BID COUNTS INCLUDE 234 BEDS AT THE [facility] Vitamin D 25 mcg 02/18/25 09:00 Cholecalciferol (Vitamin D3) 25 Mcg (1,000 Units) Tablet PO DAILY COUNTS INCLUDE 234 BEDS AT THE [facility] Labs Labs: Laboratory Results - last 24 hr 07/09/1302/17/25 02/17/25 00:23 04:45 04:48 WBC 15.5 H RBC 3.43 L Hgb 9.4 L Hct 30.6 L MCV 89.2 MCH 27.4 MCHC 30.7 L RDW 14.4 Plt Count 277 MPV 10.3 VBG pH 7.382 VBG pCO2 35.4 L VBG pO2 48.6 H VBG HCO3 20.6 L O2 Delivery Device Nasal cannula O2 Liters/Min 2.0 FiO2 28 Sodium 143 Potassium 4.7 Chloride 114 H Carbon Dioxide 19 L Anion Gap 10 BUN 40 H Creatinine 3.43 H Estim Creat Clear Calc 11 Estimated GFR 14 L Glucose 133 H POC Capillary Glucose 173 H Calcium 8.6 Phosphorus Magnesium 2.0 Nasal MRSA (PCR) Influenza A (RT-PCR) Influenza B (RT-PCR) SARS-CoV-2 RNA (RT-PCR) 02/17/25 02/17/25 02/17/25 05:00 07:18 09:22 WBC RBC Hgb Hct MCV MCH MCHC RDW Plt Count MPV VBG pH VBG pCO2 VBG pO2 VBG HCO3 O2 Delivery Device O2 Liters/Min FiO2 Sodium Potassium Chloride Carbon Dioxide Anion Gap BUN Creatinine Estim Creat Clear Calc Estimated GFR Glucose POC Capillary Glucose 105 Calcium Phosphorus 4.0 Magnesium Nasal MRSA (PCR) Not detected Influenza A (RT-PCR) Influenza B (RT-PCR) SARS-CoV-2 RNA (RT-PCR) 02/17/25 02/17/25 02/17/25 09:28 11:04 16:16 WBC RBC Hgb Hct MCV MCH MCHC RDW Plt Count MPV VBG pH VBG pCO2 VBG pO2 VBG HCO3 O2 Delivery Device O2 Liters/Min FiO2 Sodium Potassium Chloride Carbon Dioxide Anion Gap BUN Creatinine Estim Creat Clear Calc Estimated GFR Glucose POC Capillary Glucose 142 H 117 H Calcium Phosphorus Magnesium Nasal MRSA (PCR) Influenza A (RT-PCR) Negative Influenza B (RT-PCR) Negative SARS-CoV-2 RNA (RT-PCR) Negative Quality VTE Prophylaxis VTE prophylaxis: mechanical ordered
[2025-02-17] MEDS: PANTOPRAZOLE 40 MG TABLET PO (20:13)
[2025-02-17] MEDS: ATORVASTATIN 40 MG TABLET 80 MG PO (20:13)
[2025-02-17 20:48] LABS: Anion Gap 9 mmol/L (4-12); Blood Urea Nitrogen 37 mg/dL (7-17); Calcium 8.3 mg/dL (8.4-10.2); Carbon Dioxide 25 mmol/L (22-30); Chloride 104 mmol/L (98-107); Estimated CRCL calculation 12 ml/min; Estimated Glomerular Filt Rate 15; Glucose 131 mg/dL (65-110); Potassium 4.4 mmol/L (3.4-5.0); Sodium 138 mmol/L (137-145)
[2025-02-18] VITALS (9 sets, daily range): BP systolic 146–159; BP diastolic 69–77; PULSE 71–81; RESP 16–27; TEMP 36.6–36.9; O2SAT 96–99
[2025-02-18 04:35] LABS: Alanine Aminotransferase 7 U/L (6-35); Albumin Level 2.9 g/dL (3.5-5.1); Alkaline Phosphatase 84 U/L (38-126); Anion Gap 8 mmol/L (4-12); Aspartate Amino Transferase 17 U/L (14-36); Bilirubin,Total 0.4 mg/dL (0.2-1.3); Blood Urea Nitrogen 37 mg/dL (7-17); Calcium 8.2 mg/dL (8.4-10.2); Carbon Dioxide 22 mmol/L (22-30); Chloride 105 mmol/L (98-107); Estimated CRCL calculation 13 ml/min; Estimated Glomerular Filt Rate 16; Glucose 93 mg/dL (65-110); Magnesium 1.8 mg/dL (1.6-2.3); Potassium 4.6 mmol/L (3.4-5.0); Sodium 135 mmol/L (137-145); Total Protein 5.7 g/dL (6.3-8.2)
[2025-02-18 04:53] LABS: Hematocrit 27.8 % (37.0-47.0); Hemoglobin 8.8 g/dL (12.0-15.0); Immature Granulocyte Percent A 0.3 % (0-0.5); Lymphocytes Absolute Auto 3.27 K/mm3 (0.9-3.2); Mean Corpuscular HGB Conc 31.7 g/dl (32-36); Mean Corpuscular Hemoglobin 27.8 pg (26-34); Mean Corpuscular Volume 88.0 fl (80-100); Nucleated Red Blood Cells Absolute Auto 0.000 K/mm3 (0.0-0.012); Nucleated Red Blood Cells Perc 0.0 % (0.0-0.2); Platelet Count Result 245 k/mm3 (150-375); Red Blood Count 3.16 M/mm3 (4.2-5.4); White Blood Count 11.7 K/mm3 (4.5-10.0)
[2025-02-18] MEDS: ISOSORBIDE DINITRATE 10 MG TABLET 20 MG PO ×2 (07:59→17:11)
[2025-02-18] MEDS: LINEZOLID 600 MG TABLET PO ×2 (07:59→20:38)
[2025-02-18] MEDS: DOXYCYCLINE HYCLATE 100 MG TABLET PO ×2 (08:00→20:39)
[2025-02-18] MEDS: ASPIRIN 81 MG ENTERIC TABLET PO (08:00)
[2025-02-18] MEDS: GABAPENTIN 100 MG CAPSULE PO ×2 (08:00→17:11)
[2025-02-18] MEDS: PANTOPRAZOLE 40 MG TABLET PO ×2 (08:00→20:39)
[2025-02-18] MEDS: CHOLECALCIFEROL (VITAMIN D3) 25 MCG (1,000 UNITS) TABLET PO (08:13)
--- NOTE | 2025-02-18 09:06 | WPDINTPN ---
Progress Note: A&P Assessment and Plan (1) Pneumonia: Code(s): J18.9 - Pneumonia, unspecified organism Status: Acute Assessment and Plan: CT scan suggest pneumonia. PCR for influenza COVID negative Blood cultures are pending She is currently on Rocephin and doxycycline. Will plan to switch to p.o. today She is on room air and afebrile (2) Acute on chronic kidney failure: Qualifiers: Acute renal failure type: unspecified Chronic kidney disease stage: unspecified stage Qualified Code(s): N17.9 - Acute kidney failure, unspecified; N18.9 - Chronic kidney disease, unspecified Code(s): N17.9 - Acute kidney failure, unspecified; N18.9 - Chronic kidney disease, unspecified Status: Acute Assessment and Plan: Acute on chronic kidney injury Patient was given cautious amount of IV fluids. Creatinine is improving and close to baseline Monitor urine output electrolytes and creat CT scan does not show any obstruction or stone (3) Suicidal ideation: Code(s): R45.851 - Suicidal ideations Status: Acute Assessment and Plan: Patient re-evaluated by Psychiatry/crisis Case Management once medical issues are resolved (4) Insulin dependent type 2 diabetes mellitus: Code(s): E11.9 - Type 2 diabetes mellitus without complications; Z79.4 - exterminator termite (current) use of insulin Status: Acute Assessment and Plan: Consistent carbohydrate diet Sliding scale insulin (5) Heart failure, type unknown: Code(s): I50.9 - Heart failure, unspecified Status: Acute Assessment and Plan: Cautious IV fluids (6) Chronic anemia: Code(s): D64.9 - Anemia, unspecified Status: Acute Assessment and Plan: Hemoglobin appears to be baseline. Monitor (7) UTI (urinary tract infection): Qualifiers: Hematuria presence: without hematuria Urinary tract infection type: acute cystitis Qualified Code(s): N30.00 - Acute cystitis without hematuria Code(s): N39.0 - Urinary tract infection, site not specified Status: Acute Assessment and Plan: UA suggestive UTI. Patient was treated for UTI approximately 2 months ago. She grew VRE at that time Patient was started on empiric Zyvox. Zoloft was held to prevent interaction Urine culture is growing Enterococcus. Susceptibilities are pending Plan DVT prophylaxis -Lovenox Stress ulcer prophylaxis -patient is on PPI at home which will be continued Nutrition -consistent carbohydrate Code Status - Full Code Incentive spirometry Consult PT OT Subjective Date/time seen: 02/18/25 Overnight events reviewed. Afebrile On room air Tolerating p.o. diet Denies any complaint Patient denies fever, chest pain, shortness of breath, cough, nausea vomiting, abdominal pain,, diarrhea, headache or constipation. All other systems were reviewed and were negative Other Vitals acceptable Review of Systems Review of Systems: All systems reviewed & are unremarkable except as noted in HPI and below (HPI) Exam Narrative: General: Alert awake She does not appear in any acute distress and is nontoxic in appearance HEENT: She keeps her eyes closed. Neck: Supple. Respiratory: Respirations are nonlabored. Lung sounds are a bit coarse peer Cardiovascular: Regular rate and rhythm with S1-S2. Gastrointestinal: Abdomen is soft and nondistended with positive bowel sounds. No guarding or rebound tenderness. Skin: Warm and dry. Extremities: No cyanosis, clubbing, or significant edema. Radial and pedal pulses on left intact. Right BKA Neurological: Alert. Speech is clear. No facial asymmetry. Generalized weakness without gross focal findings. Moves all 4 extremities AO x3 Psychiatric: Pleasant and cooperative with appropriate mood and flat affect. Objective Data Vital Signs Vital Signs: Vital Signs - 24 hr 02/17/25 10:00 02/17/25 10:00 02/17/25 12:00 Temperature Pulse Rate 90 79 77 Respiratory Rate 20 Blood Pressure Pulse Oximetry 99 Oxygen Delivery Oxygen Flow Rate 02/17/25 16:00 02/17/25 16:00 02/17/25 18:24 Temperature 36.3 C L Pulse Rate 77 71 Respiratory Rate 25 H Blood Pressure 175/79 H Pulse Oximetry 99 99 Oxygen Delivery Nasal Cannula Oxygen Flow Rate 1 02/17/25 20:00 02/17/25 20:40 02/18/25 00:00 Temperature 36.6 C Pulse Rate 74 76 72 Respiratory Rate 18 24 H Blood Pressure 146/70 H Pulse Oximetry 99 98 Oxygen Delivery Nasal Cannula Oxygen Flow Rate 1 02/18/25 00:00 02/18/25 04:00 02/18/25 08:00 Temperature 36.9 C Pulse Rate 73 71 75 Respiratory Rate 27 H Blood Pressure 156/77 H Pulse Oximetry 98 Oxygen Delivery Oxygen Flow Rate Intake/Output Intake/Output: Intake & Output 02/15/25 02/16/25 02/17/25 02/18/25 23:59 23:59 23:59 23:59 Intake Total 4030 682.7 Output Total 1350 400 Balance 2680 282.7 Meds/Results Medications: Active Medications Generic Name Dose Route Start Last Admin Trade Name Freq PRN Reason Stop Dose Admin Acetaminophen 650 mg 02/16/25 22:41 Acetaminophen 325 Mg Tablet PO Q6H PRN Mild Pain (1-3) or Fever Albuterol/Ipratropium 3 ml 02/17/25 06:52 Ipratropium 0.5 Mg/Albuterol Sulfate 2.5 Mg Ampul.Neb 3 Ml INHALATION Q6HRT PRN Shortness Of Breath Or Wheezing Amlodipine Besylate 10 mg 02/18/25 09:00 02/18/25 07:59 Amlodipine Besylate 10 Mg Tablet PO 10 mg DAILY SHELIA Administration Aspirin 81 mg 02/18/25 09:00 02/18/25 08:00 Aspirin 81 Mg Enteric Tablet PO 81 mg DAILY SHELIA Administration Atorvastatin Calcium 80 mg 02/17/25 21:00 02/17/25 20:13 Atorvastatin 40 Mg Tablet PO 80 mg HS SHELIA Administration Dextrose 12.5 gm 02/16/25 22:41 Dextrose 50% 25 Gm/50 Ml Syringe IV PUSH PRN PRN Hypoglycemia Protocol Doxycycline Hyclate 100 mg 02/17/25 09:00 02/18/25 08:00 Doxycycline Hyclate 100 Mg Tablet PO 100 mg Q12HR SHELIA Administration Gabapentin 100 mg 02/17/25 17:00 02/18/25 08:00 Gabapentin 100 Mg Capsule PO 100 mg BID SHELIA Administration Glucagon 1 mg 02/16/25 22:41 Glucagon For Inj 1 Mg Vial IM PRN PRN Hypoglycemia Protocol Glucose 15 gm 02/16/25 22:41 Glucose Oral Gel 15 Gm Of Glucse In 37.5 Gm Tube PO PRN PRN Hypoglycemia Protocol Dextrose 1,000 mls @ 100 mls/hr 02/16/25 22:41 Dextrose 5% 1,000 Ml IVPB PRN PRN Hypoglycemia Protocol Ceftriaxone Sodium 1 gm in 50 mls @ 100 mls/hr 02/17/25 07:00 02/18/25 06:26 Rocephin 1 Gm/Ns 50 Ml IVPB Infused Q24H SHELIA Infusion Magnesium Sulfate 2 gm in 50 mls @ 25 mls/hr 02/18/25 08:30 Magnesium Sulf 2 Gm/Water 50ml IVPB 02/18/25 10:29 ONCE ONE Insulin Aspart 2 - 5 units 02/17/25 08:00 02/18/25 07:28 Insulin Aspart (*Bkc) 100 Units/Ml SUB-Q Not Given TIDWM [facility] [place] Protocol Insulin Aspart 1 - 2 units 02/17/25 21:00 02/17/25 20:13 Insulin Aspart (*Bkc) 100 Units/Ml SUB-Q Not Given HS [facility] [place] Protocol Isosorbide Dinitrate 20 mg 02/17/25 17:00 02/18/25 07:59 Isosorbide Dinitrate 10 Mg Tablet PO 20 mg BID SHELIA Administration Linezolid 600 mg 02/17/25 12:00 02/18/25 07:59 Linezolid 600 Mg Tablet PO 02/23/25 21:01 600 mg Q12HR SHELIA Administration Pantoprazole Sodium 40 mg 02/17/25 21:00 02/18/25 08:00 Pantoprazole 40 Mg Tablet PO 40 mg Q12HR SHELIA Administration Sodium Bicarbonate 1,300 mg 02/18/25 17:00 Sodium Bicarbonate Tab 650 Mg Tablet PO BID SHELIA Vitamin D 25 mcg 02/18/25 09:00 02/18/25 08:13 Cholecalciferol (Vitamin D3) 25 Mcg (1,000 Units) Tablet PO 25 mcg DAILY SHELIA Administration Labs Labs: Laboratory Results - last 24 hr 02/17/25 02/17/25 02/17/25 04:48 09:22 09:28 WBC RBC Hgb Hct MCV MCH MCHC RDW Plt Count MPV Immature Gran % (Auto) Neut % (Auto) Lymph % (Auto) [place] % (Auto) Eos % (Auto) Baso % (Auto) Lymph # (Auto) [place] # (Auto) Eos # (Auto) Baso # (Auto) Abs Immat Gran (auto) Absolute Neuts (auto) Absolute Nucleated RBC Nucleated RBC % Sodium Potassium Chloride Carbon Dioxide Anion Gap BUN Creatinine Estim Creat Clear Calc Estimated GFR Glucose POC Capillary Glucose Calcium Phosphorus Magnesium 2.0 Total Bilirubin AST ALT Alkaline Phosphatase Total Protein Albumin Nasal MRSA (PCR) Not detected Influenza A (RT-PCR) Negative Influenza B (RT-PCR) Negative SARS-CoV-2 RNA (RT-PCR) Negative 0702/17/25 02/17/25 11:04 16:16 20:12 WBC RBC Hgb Hct MCV MCH MCHC RDW Plt Count MPV Immature Gran % (Auto) Neut % (Auto) Lymph % (Auto) [place] % (Auto) Eos % (Auto) Baso % (Auto) Lymph # (Auto) [place] # (Auto) Eos # (Auto) Baso # (Auto) Abs Immat Gran (auto) Absolute Neuts (auto) Absolute Nucleated RBC Nucleated RBC % Sodium Potassium Chloride Carbon Dioxide Anion Gap BUN Creatinine Estim Creat Clear Calc Estimated GFR Glucose POC Capillary Glucose 142 H 117 H 124 H Calcium Phosphorus Magnesium Total Bilirubin AST ALT Alkaline Phosphatase Total Protein Albumin Nasal MRSA (PCR) Influenza A (RT-PCR) Influenza B (RT-PCR) SARS-CoV-2 RNA (RT-PCR) 02/17/25 02/18/25 02/18/25 20:34 04:06 04:45 WBC 11.7 H RBC 3.16 L Hgb 8.8 L Hct 27.8 L MCV 88.0 MCH 27.8 MCHC 31.7 L RDW 14.2 Plt Count 245 MPV 9.8 Immature Gran % (Auto) 0.3 Neut % (Auto) 60.2 Lymph % (Auto) 28.0 [place] % (Auto) 8.0 Eos % (Auto) 3.1 Baso % (Auto) 0.4 Lymph # (Auto) 3.27 H [place] # (Auto) 0.9 H Eos # (Auto) 0.4 H Baso # (Auto) 0.1 Abs Immat Gran (auto) 0.04 H Absolute Neuts (auto) 7.0 H Absolute Nucleated RBC 0.000 Nucleated RBC % 0.0 Sodium 138 135 L Potassium 4.4 4.6 Chloride 104 105 Carbon Dioxide 25 22 Anion Gap 9 8 BUN 37 H 37 H Creatinine 3.16 H 2.95 H Estim Creat Clear Calc 12 13 Estimated GFR 15 L 16 L Glucose 131 H 93 POC Capillary Glucose Calcium 8.3 L 8.2 L Phosphorus 3.7 Magnesium 1.8 Total Bilirubin 0.4 AST 17 ALT 7 Alkaline Phosphatase 84 Total Protein 5.7 L Albumin 2.9 L Nasal MRSA (PCR) Influenza A (RT-PCR) Influenza B (RT-PCR) SARS-CoV-2 RNA (RT-PCR) 02/18/25 07:11 WBC RBC Hgb Hct MCV MCH MCHC RDW Plt Count MPV Immature Gran % (Auto) Neut % (Auto) Lymph % (Auto) [place] % (Auto) Eos % (Auto) Baso % (Auto) Lymph # (Auto) [place] # (Auto) Eos # (Auto) Baso # (Auto) Abs Immat Gran (auto) Absolute Neuts (auto) Absolute Nucleated RBC Nucleated RBC % Sodium Potassium Chloride Carbon Dioxide Anion Gap BUN Creatinine Estim Creat Clear Calc Estimated GFR Glucose POC Capillary Glucose 97 Calcium Phosphorus Magnesium Total Bilirubin AST ALT Alkaline Phosphatase Total Protein Albumin Nasal MRSA (PCR) Influenza A (RT-PCR) Influenza B (RT-PCR) SARS-CoV-2 RNA (RT-PCR) Quality VTE Prophylaxis VTE prophylaxis: mechanical ordered
[2025-02-18] MEDS: MAGNESIUM SULF 2 GM/WATER 50ML 2 GM/50 ML BAG IVPB (09:37)
--- NOTE | 2025-02-18 09:47 | PC.NURSE ---
Addendum entered by Cristy Marcus RN 02/18/25 09:57: Chair alarm in place. Original Note: Patient up to recliner with minimal assist with direction. Patient able to pivot transfer to recliner.
[2025-02-18] MEDS: METOCLOPRAMIDE HCL INJ 10 MG/2 ML VIAL IV PUSH (11:25)
[2025-02-18] MEDS: SODIUM BICARBONATE TAB 650 MG TABLET 1300 MG PO (17:11)
--- NOTE | 2025-02-18 17:54 | P.PNIM_ITS ---
Progress Note: A&P Assessment and Plan (1) Pneumonia: Code(s): J18.9 - Pneumonia, unspecified organism Status: Acute (2) Acute on chronic kidney failure: Qualifiers: Acute renal failure type: unspecified Chronic kidney disease stage: unspecified stage Qualified Code(s): N17.9 - Acute kidney failure, unspecified; N18.9 - Chronic kidney disease, unspecified Code(s): N17.9 - Acute kidney failure, unspecified; N18.9 - Chronic kidney disease, unspecified Status: Acute (3) Suicidal ideation: Code(s): R45.851 - Suicidal ideations Status: Acute (4) Insulin dependent type 2 diabetes mellitus: Code(s): E11.9 - Type 2 diabetes mellitus without complications; 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 Labs, imaging, EKG, and all reports were personally reviewed. Preliminary workup at the outside ED revealed an afebrile patient with a WBC count of 11.9, a mild increase in creatinine from baseline, and imaging showing pulmonary central lobar ground-glass opacities which may very well be admitting representative of pneumonia. She has been started on ceftriaxone and doxycycline. Attempt sputum for culture. DuoNebs available as needed. She looks a bit dry on exam and her worsening renal function is likely related to dehydration given poor oral intake, vomiting, and diarrhea. Avoid over-hydration given reported history of heart failure, type unknown. She told the admitting nurse that she had a suicidal ideation with a plan however is adamant that she is not suicidal and has no plan. Infection was hospitalized at the [facility] couple of weeks ago for the same and she states that she is in a better mental position at this time. Nonetheless, we will consult crisis. I do not think she needs a sitter at this time. Continue basal insulin. Initiate sliding scale insulin, Accu-Cheks, and hypoglycemic protocol. Anemia stable on review of previous labs. Her home medications will be reviewed and resumed as appropriate. Findings and treatment plan were discussed with the patient. Questions were solicited and answered to satisfaction. The patient's medical management will be taken over by the hospitalist team in a.m. Patient presented with with abdominal pain CT scan of abdomen does not show any specific pathology related to her pain. however pain had improved. however today patient c/o abdominal pain, and nausea, patient has not had BM for few days, did KUB which is normal, had a lunch, will give miralax, patient also express suicidal thoughts, once patient medical problems are resolved, will consult crisis team to evaluate the patient, patient will benefit going to inpatient psychiatric vargas. Subjective Date/time seen: 02/18/25 17:54 Interval history: Abdominal pain. H&P-Narrative: This is a 59-year-old female with history of gastroesophageal reflux disease, ulcers, chronic kidney disease stage 4 with anemia of chronic kidney disease, insulin-dependent type 2 diabetes mellitus, hypertension, and congestive heart failure type unknown (poorly documented and patient denies) who presented to an outside emergency department with complaints of abdominal pain. She has not been feeling well for 3 days with symptoms to include nausea, nonbloody and nonbilious emesis, watery diarrhea, diffuse abdominal pain which she has difficulties describing, and belching. She is feeling perhaps a bit short of breath and has an occasional cough which is nonproductive. She denies sick co ntacts, fever, sinus congestion, sore throat, chest pain, dysuria, and edema. She also denies sick contacts and concerns for aspiration. She is unsure if there has been any blood in her stool or emesis as she is legally blind. At the outside facility: Vital signs on arrival include a temperature of 98?, blood pressure 120/60, pulse 89, respiratory rate 33, SpO2 86%. Labs were significant for WBC count of 11.9, hemoglobin 10.6, chloride 111, carbon dioxide 19, anion gap 10, BUN 47, creatinine 3.71, glucose 262, lactic acid 1.8, proBNP 25068. Urinalysis was positive for 2+ protein, 2+ glucose, 1+ blood, 2+ leukocyte esterase, 3 to 5 RBC, 10 to 15 WBC, 4+ bacteria, and rare squamous cells. Chest x-ray showed bilateral sent 3 lobar nodular ground-glass opacities. CT of the abdomen and pelvis showed findings which may represent hypersensitivity pneumonitis, respiratory bronchitis in smokers, or infectious airway disease, patulous esophagus, small hiatal hernia, mild urinary bladder wall thickening, enlarged uterus, presumably secondary to fibroids. She was placed on oxygen and was given a dose of azithromycin ceftriaxone for presumed pneumonia. Lateral transfer was initiated to [facility]. After she arrived to the facility and during the nursing assessment, the patient reported that she was hospitalized at the [facility] a couple of weeks ago with suicidal ideation. She told the nurse that she was still suicidal and had a plan but would not tell her the plan. The patient was transferred to ICU for suicide precautions and close monitoring . At the time of my evaluation she denies thoughts of suicide and does not have a plan. Patient presented with with abdominal pain CT scan of abdomen does not show any specific pathology related to her pain. however pain had improved. however today patient c/o abdominal pain, and nausea, patient has not had BM for few days, did KUB which is normal, had a lunch, will give miralax, patient also express suicidal thoughts, once patient medical problems are resolved, will consult crisis team to evaluate the patient, patient will benefit going to inpatient psychiatric vargas. Review of Systems Review of Systems: All systems reviewed & are unremarkable except as noted in HPI and below (HPI) Objective Data Vital Signs Vital Signs: Vital Signs - 24 hr 02/17/25 18:24 02/17/25 20:00 02/17/25 20:40 Temperature Pulse Rate 74 76 Respiratory Rate 18 Blood Pressure Pulse Oximetry 99 99 Oxygen Delivery Nasal Cannula Nasal Cannula Oxygen Flow Rate 1 1 Fraction of Inspired Oxygen 02/18/25 00:00 02/18/25 00:00 02/18/25 04:00 Temperature 36.6 C Pulse Rate 72 73 71 Respiratory Rate 24 H Blood Pressure 146/70 H Pulse Oximetry 98 Oxygen Delivery Oxygen Flow Rate Fraction of Inspired Oxygen 02/18/25 08:00 02/18/25 08:00 02/18/25 08:00 Temperature 36.9 C Pulse Rate 75 77 Respiratory Rate 27 H Blood Pressure 156/77 H Pulse Oximetry 98 99 Oxygen Delivery Nasal Cannula Oxygen Flow Rate 1 Fraction of Inspired Oxygen 02/18/25 08:00 02/18/25 09:15 02/18/25 11:55 Temperature Pulse Rate 76 78 79 Respiratory Rate 20 20 Blood Pressure Pulse Oximetry 96 97 Oxygen Delivery Nasal Cannula Room Air Oxygen Flow Rate 2 Fraction of Inspired Oxygen 24 21 02/18/25 15:19 02/18/25 16:00 02/18/25 16:00 Temperature 36.6 C Pulse Rate 74 79 Respiratory Rate 18 Blood Pressure 151/69 H Pulse Oximetry 96 Oxygen Delivery Room Air Oxygen Flow Rate Fraction of Inspired Oxygen Intake/Output Intake/Output: Intake & Output 02/15/25 02/16/25 02/17/25 02/18/25 23:59 23:59 23:59 23:59 Intake Total 4030 1452.7 Output Total 1350 500 Balance 2680 952.7 Meds/Results Medications: Active Medications Generic Name Dose Route Start Last Admin Trade Name Freq PRN Reason Stop Dose Admin Acetaminophen 650 mg 02/16/25 22:41 Acetaminophen 325 Mg Tablet PO Q6H PRN Mild Pain (1-3) or Fever Albuterol/Ipratropium 3 ml 02/17/25 06:52 Ipratropium 0.5 Mg/Albuterol Sulfate 2.5 Mg Ampul.Neb 3 Ml INHALATION Q6HRT PRN Shortness Of Breath Or Wheezing Amlodipine Besylate 10 mg 02/18/25 09:00 02/18/25 07:59 Amlodipine Besylate 10 Mg Tablet PO 10 mg DAILY SHELIA Administration Amoxicillin/Clavulanate Potassium 1 tablet 02/19/25 09:00 Amoxicillin/Clavulanate K 875-125 Mg Tab PO 02/21/25 21:01 Q12HR SHELIA Aspirin 81 mg 02/18/25 09:00 02/18/25 08:00 Aspirin 81 Mg Enteric Tablet PO 81 mg DAILY SHELIA Administration Atorvastatin Calcium 80 mg 02/17/25 21:00 02/17/25 20:13 Atorvastatin 40 Mg Tablet PO 80 mg HS SHELIA Administration Dextrose 12.5 gm 02/16/25 22:41 Dextrose 50% 25 Gm/50 Ml Syringe IV PUSH PRN PRN Hypoglycemia Protocol Doxycycline Hyclate 100 mg 02/17/25 09:00 02/18/25 08:00 Doxycycline Hyclate 100 Mg Tablet PO 02/21/25 21:01 100 mg Q12HR SHELIA Administration Gabapentin 100 mg 02/17/25 17:00 02/18/25 17:11 Gabapentin 100 Mg Capsule PO 100 mg BID SHELIA Administration Glucagon 1 mg 02/16/25 22:41 Glucagon For Inj 1 Mg Vial IM PRN PRN Hypoglycemia Protocol Glucose 15 gm 02/16/25 22:41 Glucose Oral Gel 15 Gm Of Glucse In 37.5 Gm Tube PO PRN PRN Hypoglycemia Protocol Dextrose 1,000 mls @ 100 mls/hr 02/16/25 22:41 Dextrose 5% 1,000 Ml IVPB PRN PRN Hypoglycemia Protocol Insulin Aspart 2 - 5 units 02/17/25 08:00 02/18/25 16:16 Insulin Aspart (*Bkc) 100 Units/Ml SUB-Q Not Given TIDWM SHEL[facility] Protocol Insulin Aspart 1 - 2 units 02/17/25 21:00 02/17/25 20:13 Insulin Aspart (*Bkc) 100 Units/Ml SUB-Q Not Given HS SHELIA Protocol Isosorbide Dinitrate 20 mg 02/17/25 17:00 02/18/25 17:11 Isosorbide Dinitrate 10 Mg Tablet PO 20 mg BID SHELIA Administration Linezolid 600 mg 02/17/25 12:00 02/18/25 07:59 Linezolid 600 Mg Tablet PO 02/23/25 21:01 600 mg Q12HR SHELIA Administration Pantoprazole Sodium 40 mg 02/17/25 21:00 02/18/25 08:00 Pantoprazole 40 Mg Tablet PO 40 mg Q12HR SHELIA Administration Senna/Docusate Sodium 1 tab 02/18/25 21:00 Senna/Docusate Sodium Tablet PO HS SHELIA Sodium Bicarbonate 1,300 mg 02/18/25 17:00 02/18/25 17:11 Sodium Bicarbonate Tab 650 Mg Tablet PO 1,300 mg BID SHELIA Administration Vitamin D 25 mcg 02/18/25 09:00 02/18/25 08:13 Cholecalciferol (Vitamin D3) 25 Mcg (1,000 Units) Tablet PO 25 mcg DAILY SHELIA Administration Radiology Results: ITS Impressions Abdomen X-Ray 02/18/25 15:19 IMPRESSION: NO ACUTE ABDOMINAL FINDINGS. Labs Labs: Laboratory Results - last 24 hr 02/17/25 02/17/25 02/17/25 04:48 20:12 20:34 WBC RBC Hgb Hct MCV MCH MCHC RDW Plt Count MPV Immature Gran % (Auto) Neut % (Auto) Lymph % (Auto) [place] % (Auto) Eos % (Auto) Baso % (Auto) Lymph # (Auto) [place] # (Auto) Eos # (Auto) Baso # (Auto) Abs Immat Gran (auto) Absolute Neuts (auto) Absolute Nucleated RBC Nucleated RBC % Sodium 138 Potassium 4.4 Chloride 104 Carbon Dioxide 25 Anion Gap 9 BUN 37 H Creatinine 3.16 H Estim Creat Clear Calc 12 Estimated GFR 15 L Glucose 131 H POC Capillary Glucose 124 H Calcium 8.3 L Phosphorus Magnesium 2.0 Total Bilirubin AST ALT Alkaline Phosphatase Total Protein Albumin 02/18/25 02/18/25 02/18/25 04:06 04:45 07:11 WBC 11.7 H RBC 3.16 L Hgb 8.8 L Hct 27.8 L MCV 88.0 MCH 27.8 MCHC 31.7 L RDW 14.2 Plt Count 245 MPV 9.8 Immature Gran % (Auto) 0.3 Neut % (Auto) 60.2 Lymph % (Auto) 28.0 [place] % (Auto) 8.0 Eos % (Auto) 3.1 Baso % (Auto) 0.4 Lymph # (Auto) 3.27 H [place] # (Auto) 0.9 H Eos # (Auto) 0.4 H Baso # (Auto) 0.1 Abs Immat Gran (auto) 0.04 H Absolute Neuts (auto) 7.0 H Absolute Nucleated RBC 0.000 Nucleated RBC % 0.0 Sodium 135 L Potassium 4.6 Chloride 105 Carbon Dioxide 22 Anion Gap 8 BUN 37 H Creatinine 2.95 H Estim Creat Clear Calc 13 Estimated GFR 16 L Glucose 93 POC Capillary Glucose 97 Calcium 8.2 L Phosphorus 3.7 Magnesium 1.8 Total Bilirubin 0.4 AST 17 ALT 7 Alkaline Phosphatase 84 Total Protein 5.7 L Albumin 2.9 L 02/18/25 02/18/25 11:16 16:07 WBC RBC Hgb Hct MCV MCH MCHC RDW Plt Count MPV Immature Gran % (Auto) Neut % (Auto) Lymph % (Auto) [place] % (Auto) Eos % (Auto) Baso % (Auto) Lymph # (Auto) [place] # (Auto) Eos # (Auto) Baso # (Auto) Abs Immat Gran (auto) Absolute Neuts (auto) Absolute Nucleated RBC Nucleated RBC % Sodium Potassium Chloride Carbon Dioxide Anion Gap BUN Creatinine Estim Creat Clear Calc Estimated GFR Glucose POC Capillary Glucose 127 H 161 H Calcium Phosphorus Magnesium Total Bilirubin AST ALT Alkaline Phosphatase Total Protein Albumin Quality VTE Prophylaxis VTE prophylaxis: mechanical ordered
[2025-02-18] MEDS: ATORVASTATIN 40 MG TABLET 80 MG PO (20:39)
[2025-02-18] MEDS: SENNA/DOCUSATE SODIUM TABLET 1 TAB PO (20:39)
[2025-02-19] VITALS (9 sets, daily range): BP systolic 159–162; BP diastolic 74–77; PULSE 77–83; RESP 19–24; TEMP 36.7–36.9; O2SAT 92–98
[2025-02-19 03:59] LABS: Hematocrit 30.3 % (37.0-47.0); Hemoglobin 9.5 g/dL (12.0-15.0); Immature Granulocyte Percent A 0.3 % (0-0.5); Lymphocytes Absolute Auto 2.74 K/mm3 (0.9-3.2); Mean Corpuscular HGB Conc 31.4 g/dl (32-36); Mean Corpuscular Hemoglobin 27.5 pg (26-34); Mean Corpuscular Volume 87.8 fl (80-100); Nucleated Red Blood Cells Absolute Auto 0.000 K/mm3 (0.0-0.012); Nucleated Red Blood Cells Perc 0.0 % (0.0-0.2); Platelet Count Result 279 k/mm3 (150-375); Red Blood Count 3.45 M/mm3 (4.2-5.4); White Blood Count 9.9 K/mm3 (4.5-10.0)
[2025-02-19 04:18] LABS: Alanine Aminotransferase 9 U/L (6-35); Albumin Level 3.3 g/dL (3.5-5.1); Alkaline Phosphatase 88 U/L (38-126); Anion Gap 8 mmol/L (4-12); Aspartate Amino Transferase 21 U/L (14-36); Bilirubin,Total 0.3 mg/dL (0.2-1.3); Blood Urea Nitrogen 36 mg/dL (7-17); Calcium 8.3 mg/dL (8.4-10.2); Carbon Dioxide 24 mmol/L (22-30); Chloride 104 mmol/L (98-107); Estimated CRCL calculation 11 ml/min; Estimated Glomerular Filt Rate 12; Glucose 153 mg/dL (65-110); Magnesium 2.3 mg/dL (1.6-2.3); Potassium 4.2 mmol/L (3.4-5.0); Sodium 136 mmol/L (137-145); Total Protein 6.5 g/dL (6.3-8.2)
[2025-02-19] MEDS: DOXYCYCLINE HYCLATE 100 MG TABLET PO ×2 (07:43→20:30)
[2025-02-19] MEDS: SODIUM BICARBONATE TAB 650 MG TABLET 1300 MG PO ×2 (07:43→16:33)
[2025-02-19] MEDS: CHOLECALCIFEROL (VITAMIN D3) 25 MCG (1,000 UNITS) TABLET PO (07:44)
[2025-02-19] MEDS: LINEZOLID 600 MG TABLET PO ×2 (07:44→20:30)
[2025-02-19] MEDS: GABAPENTIN 100 MG CAPSULE PO ×2 (07:44→16:33)
[2025-02-19] MEDS: ISOSORBIDE DINITRATE 10 MG TABLET 20 MG PO ×2 (07:44→16:33)
[2025-02-19] MEDS: ASPIRIN 81 MG ENTERIC TABLET PO (07:44)
[2025-02-19] MEDS: PANTOPRAZOLE 40 MG TABLET PO ×2 (07:44→20:30)
[2025-02-19] MEDS: METOCLOPRAMIDE HCL INJ 10 MG/2 ML VIAL IV PUSH ×2 (08:56→20:30)
--- NOTE | 2025-02-19 11:26 | PCOTNOTE ---
Attempted to see patient for OT evaluation this AM. Patient declining any/all activity, stating I don't feel good. Will continue to attempt. RN notified.
[2025-02-19] MEDS: BISACODYL 10 MG SUPPOSITORY RECTAL (16:33)
--- NOTE | 2025-02-19 16:41 | PM.IMPN ---
Progress Note: A&P Assessment and Plan (1) Pneumonia: Code(s): J18.9 - Pneumonia, unspecified organism Status: Acute (2) Acute on chronic kidney failure: Qualifiers: Acute renal failure type: unspecified Chronic kidney disease stage: unspecified stage Qualified Code(s): N17.9 - Acute kidney failure, unspecified; N18.9 - Chronic kidney disease, unspecified Code(s): N17.9 - Acute kidney failure, unspecified; N18.9 - Chronic kidney disease, unspecified Status: Acute (3) Suicidal ideation: Code(s): R45.851 - Suicidal ideations Status: Acute (4) Insulin dependent type 2 diabetes mellitus: Code(s): E11.9 - Type 2 diabetes mellitus without complications; Z79.4 - terminal gauger (current) use of insulin Status: Acute (5) Heart failure, type unknown: Code(s): I50.9 - Heart failure, unspecified Status: Acute (6) Chronic anemia: Code(s): D64.9 - Anemia, unspecified Status: Acute Plan The patient presented to the outside facility for evaluation of nausea, vomiting, diarrhea, abdominal pain, and mild shortness of breath for several days as detailed above. Labs, imaging, EKG, and all reports were personally reviewed. 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 She has been started on ceftriaxone and doxycycline. Attempt sputum for culture. DuoNebs available as needed. She looks a bit dry on exam and her worsening renal function is likely related to dehydration given poor oral intake, vomiting, and diarrhea. Avoid over-hydration given reported history of heart failure, type unknown. She told the admitting nurse that she had a suicidal ideation with a plan however is adamant that she is not suicidal and has no plan. Infection was hospitalized [facility] the [facility] weeks ago for the same and she states that she is in a better mental position at this time. Nonetheless, we will consult crisis. I do not think she needs a sitter at this time. Continue basal insulin. Initiate sliding scale insulin, Accu-Cheks, and hypoglycemic protocol. Anemia stable on review of previous labs. Her home medications will be reviewed and resumed as appropriate. Findings and treatment plan were discussed with the patient. Questions were solicited and answered to satisfaction. The patient's medical management will be taken over by the hospitalist team in a.m. Patient presented with with abdominal pain CT scan of abdomen does not show any specific pathology related to her pain. however pain had improved. however today patient c/o abdominal pain, and nausea, patient has not had BM for few days, did KUB which is normal, had a lunch, patient refused miralax, gave senna, still no BM, and complaints of abdominal pain, today patient is agreed to take Miralax and or suppository, patient also express suicidal thoughts, once patient medical problems are resolved, will consult crisis team to evaluate the patient, patient will benefit going to inpatient psychiatric [facility]. Subjective Date/time seen: 02/19/25 16:41 Interval history: Abdominal pain. H&P-Narrative: This is a 59-year-old female with history of gastroesophageal reflux disease, ulcers, chronic kidney disease stage 4 with anemia of chronic kidney disease, insulin-dependent type 2 diabetes mellitus, hypertension, and congestive heart failure type unknown (poorly documented and patient denies) who presented to an outside emergency department with complaints of abdominal pain. She has not been feeling well for 3 days with symptoms to include nausea, nonbloody and nonbilious emesis, watery diarrhea, diffuse abdominal pain which she has difficulties describing, and belching. She is feeling perhaps a bit short of breath and has an occasional cough which is nonproductive. She denies sick contacts, fever, sinus congestion, sore throat, chest pain, dysuria, and edema. She also denies sick contacts and concerns for aspiration. She is unsure if there has been any blood in her stool or emesis as she is legally blind. At the outside facility: Vital signs on arrival include a temperature of 98?, blood pressure 120/60, pulse 89, respiratory rate 33, SpO2 86%. Labs were significant for WBC count of 11.9, hemoglobin 10.6, chloride 111, carbon dioxide 19, anion gap 10, BUN 47, creatinine 3.71, glucose 262, lactic acid 1.8, proBNP 18413. Urinalysis was positive for 2+ protein, 2+ glucose, 1+ blood, 2+ leukocyte esterase, 3 to 5 RBC, 10 to 15 WBC, 4+ bacteria, and rare squamous cells. Chest x-ray showed bilateral sent 3 lobar nodular ground-glass opacities. CT of the abdomen and pelvis showed findings which may represent hypersensitivity pneumonitis, respiratory bronchitis in smokers, or infectious airway disease, patulous esophagus, small hiatal hernia, mild urinary bladder wall thickening, enlarged uterus, presumably secondary to fibroids. She was placed on oxygen and was given a dose of azithromycin ceftriaxone for presumed pneumonia. Lateral transfer was initiated to [place]. After she arrived to the facility and during the nursing assessment, the patient reported that she was hospitalized at the [facility] a couple of weeks ago with suicidal ideation. She told the nurse that she was still suicidal and had a plan but would not tell her the plan. The patient was transferred to ICU for suicide precautions and close monitoring . At the time of my evaluation she denies thoughts of suicide and does not have a plan. Patient presented with with abdominal pain CT scan of abdomen does not show any specific pathology related to her pain. however pain had improved. however today patient c/o abdominal pain, and nausea, patient has not had BM for few days, did KUB which is normal, had a lunch, patient refused miralax, gave senna, still no BM, and complaints of abdominal pain, today patient is agreed to take Miralax and or suppository, patient also express suicidal thoughts, once patient medical problems are resolved, will consult crisis team to evaluate the patient, patient will benefit going to inpatient psychiatric [facility]. Review of Systems Review of Systems: 12 systems were reviewed and are negative except for as per HPI. All systems reviewed & are unremarkable except as noted in HPI and below (HPI) Exam Narrative: General: Chronically ill-appearing female in the semi-Abernathy position in bed. She does not appear in any acute distress and is nontoxic in appearance. Weight: 49.1 kg. BMI: 21.1. HEENT: She keeps her eyes closed. Tacky mucous membranes. Neck: Supple. Respiratory: Respirations are nonlabored. Lung sounds are a bit coarse peer Cardiovascular: Regular rate and rhythm with S1-S2. Gastrointestinal: Abdomen is soft and nondistended with positive bowel sounds. She is a bit tender to palpation epigastric region. Occasional belching. No guarding or rebound tenderness. Skin: Warm and dry. Extremities: No cyanosis, clubbing, or significant edema. Radial and pedal pulses intact. Neurological: Alert. Speech is clear. No facial asymmetry. Generalized weakness without gross focal findings. Psychiatric: Pleasant and cooperative with appropriate mood and flat affect. Objective Data Vital Signs Vital Signs: Vital Signs - 24 hr 02/18/25 19:50 02/18/25 20:00 02/18/25 23:46 Temperature 36.9 C Pulse Rate 76 78 81 Respiratory Rate 21 H 16 Blood Pressure 159/74 H Pulse Oximetry 98 Oxygen Delivery Room Air 02/19/25 00:00 02/19/25 04:00 02/19/25 08:00 Temperature Pulse Rate 83 77 Respiratory Rate Blood Pressure Pulse Oximetry 92 Oxygen Delivery Room Air 02/19/25 08:00 02/19/25 08:00 02/19/25 12:00 Temperature 36.8 C Pulse Rate 83 81 78 Respiratory Rate 19 Blood Pressure 159/74 H Pulse Oximetry 92 Oxygen Delivery 02/19/25 16:00 02/19/25 16:39 Temperature 36.7 C Pulse Rate 79 80 Respiratory Rate 20 Blood Pressure 162/77 H Pulse Oximetry 92 Oxygen Delivery Intake/Output Intake/Output: Intake & Output 02/16/25 02/17/25 02/18/25 02/19/25 23:59 23:59 23:59 23:59 Intake Total 4030 1452.7 1000 Output Total 5719 071 4612 Balance 2680 652.7 0 Meds/Results Medications: Active Medications Generic Name Dose Route Start Last Admin Trade Name Freq PRN Reason Stop Dose Admin Acetaminophen 650 mg 02/16/25 22:41 Acetaminophen 325 Mg Tablet PO Q6H PRN Mild Pain (1-3) or Fever Albuterol/Ipratropium 3 ml 02/17/25 06:52 Ipratropium 0.5 Mg/Albuterol Sulfate 2.5 Mg Ampul.Neb 3 Ml INHALATION Q6HRT PRN Shortness Of Breath Or Wheezing Amlodipine Besylate 10 mg 02/18/25 09:00 02/19/25 07:44 Amlodipine Besylate 10 Mg Tablet PO 10 mg DAILY [facility] Administration Amoxicillin/Clavulanate Potassium 1 tablet 02/19/25 21:00 Amoxicillin/Clavulanate K 500-125 Mg Tab PO 02/21/25 21:01 Q12HR SHELIA Aspirin 81 mg 02/18/25 09:00 02/19/25 07:44 Aspirin 81 Mg Enteric Tablet PO 81 mg DAILY SHELIA Administration Atorvastatin Calcium 80 mg 02/17/25 21:00 02/18/25 20:39 Atorvastatin 40 Mg Tablet PO 80 mg HS SHELIA Administration Bisacodyl 10 mg 02/19/25 16:11 02/19/25 16:33 Bisacodyl 10 Mg Suppository RECTAL 10 mg QAM PRN Administration Constipation Dextrose 12.5 gm 02/16/25 22:41 Dextrose 50% 25 Gm/50 Ml Syringe IV PUSH PRN PRN Hypoglycemia Protocol Doxycycline Hyclate 100 mg 02/17/25 09:00 02/19/25 07:43 Doxycycline Hyclate 100 Mg Tablet PO 02/21/25 21:01 100 mg Q12HR SHELIA Administration Gabapentin 100 mg 02/17/25 17:00 02/19/25 16:33 Gabapentin 100 Mg Capsule PO 100 mg BID SHELIA Administration Glucagon 1 mg 02/16/25 22:41 Glucagon For Inj 1 Mg Vial IM PRN PRN Hypoglycemia Protocol Glucose 15 gm 02/16/25 22:41 Glucose Oral Gel 15 Gm Of Glucse In 37.5 Gm Tube PO PRN PRN Hypoglycemia Protocol Dextrose 1,000 mls @ 100 mls/hr 02/16/25 22:41 Dextrose 5% 1,000 Ml IVPB PRN PRN Hypoglycemia Protocol Insulin Aspart 2 - 5 units 02/17/25 08:00 02/19/25 16:33 Insulin Aspart (*Bkc) 100 Units/Ml SUB-Q Not Given TIDWM [facility] Protocol Insulin Aspart 1 - 2 units 02/17/25 21:00 02/18/25 20:45 Insulin Aspart (*Bkc) 100 Units/Ml SUB-Q Not Given HS [facility] Protocol Isosorbide Dinitrate 20 mg 02/17/25 17:00 02/19/25 16:33 Isosorbide Dinitrate 10 Mg Tablet PO 20 mg BID SHELIA Administration Linezolid 600 mg 02/17/25 12:00 02/19/25 07:44 Linezolid 600 Mg Tablet PO 02/23/25 21:01 600 mg Q12HR SHELIA Administration Metoclopramide HCl 10 mg 02/19/25 08:30 02/19/25 08:56 Metoclopramide Hcl Inj 10 Mg/2 Ml Vial IV PUSH 10 mg Q8HR PRN Administration Nausea Pantoprazole Sodium 40 mg 02/17/25 21:00 02/19/25 07:44 Pantoprazole 40 Mg Tablet PO 40 mg Q12HR SHELIA Administration Polyethylene Glycol 17 gm 02/19/25 12:00 02/19/25 13:03 Polyethylene Glycol 3350 17 Gm Powd.Pack PO 17 gm NOON SHELIA Administration Senna/Docusate Sodium 1 tab 02/18/25 21:00 02/18/25 20:39 Senna/Docusate Sodium Tablet PO 1 tab HS SHELIA Administration Sodium Bicarbonate 1,300 mg 02/18/25 17:00 02/19/25 16:33 Sodium Bicarbonate Tab 650 Mg Tablet PO 1,300 mg BID SHELIA Administration Vitamin D 25 mcg 02/18/25 09:00 02/19/25 07:44 Cholecalciferol (Vitamin D3) 25 Mcg (1,000 Units) Tablet PO 25 mcg DAILY SHELIA Administration Radiology Results: ITS Impressions Abdomen X-Ray 02/18/25 15:19 IMPRESSION: NO ACUTE ABDOMINAL FINDINGS. Labs Labs: Laboratory Results - last 24 hr 02/18/25 02/19/25 02/19/25 20:40 03:47 07:26 WBC 9.9 RBC 3.45 L Hgb 9.5 L Hct 30.3 L MCV 87.8 MCH 27.5 MCHC 31.4 L RDW 13.8 Plt Count 279 MPV 10.3 Immature Gran % (Auto) 0.3 Neut % (Auto) 59.4 Lymph % (Auto) 27.6 Dawes % (Auto) 8.6 H Eos % (Auto) 3.7 Baso % (Auto) 0.4 Lymph # (Auto) 2.74 Dawes # (Auto) 0.9 H Eos # (Auto) 0.4 H Baso # (Auto) 0.0 Abs Immat Gran (auto) 0.03 Absolute Neuts (auto) 5.9 Absolute Nucleated RBC 0.000 Nucleated RBC % 0.0 Sodium 136 L Potassium 4.2 Chloride 104 Carbon Dioxide 24 Anion Gap 8 BUN 36 H Creatinine 3.69 H Estim Creat Clear Calc 11 Estimated GFR 12 L Glucose 153 H POC Capillary Glucose 183 H 157 H Calcium 8.3 L Phosphorus 3.7 Magnesium 2.3 Total Bilirubin 0.3 AST 21 ALT 9 Alkaline Phosphatase 88 Total Protein 6.5 Albumin 3.3 L 02/19/25 02/19/25 12:07 16:30 WBC RBC Hgb Hct MCV MCH MCHC RDW Plt Count MPV Immature Gran % (Auto) Neut % (Auto) Lymph % (Auto) Dawes % (Auto) Eos % (Auto) Baso % (Auto) Lymph # (Auto) Dawes # (Auto) Eos # (Auto) Baso # (Auto) Abs Immat Gran (auto) Absolute Neuts (auto) Absolute Nucleated RBC Nucleated RBC % Sodium Potassium Chloride Carbon Dioxide Anion Gap BUN Creatinine Estim Creat Clear Calc Estimated GFR Glucose POC Capillary Glucose 152 H 126 H Calcium Phosphorus Magnesium Total Bilirubin AST ALT Alkaline Phosphatase Total Protein Albumin Quality VTE Prophylaxis VTE prophylaxis: mechanical ordered
[2025-02-19] MEDS: SENNA/DOCUSATE SODIUM TABLET 1 TAB PO (20:30)
[2025-02-19] MEDS: ATORVASTATIN 40 MG TABLET 80 MG PO (20:30)
[2025-02-20] VITALS: PULSE 80
[2025-02-20] MEDS: METOCLOPRAMIDE HCL INJ 10 MG/2 ML VIAL IV PUSH ×2 (03:15→12:58)
[2025-02-20 04:00] VITALS: PULSE 76
[2025-02-20 04:17] LABS: Hematocrit 29.3 % (37.0-47.0); Hemoglobin 9.1 g/dL (12.0-15.0); Immature Granulocyte Percent A 0.3 % (0-0.5); Lymphocytes Absolute Auto 2.59 K/mm3 (0.9-3.2); Mean Corpuscular HGB Conc 31.1 g/dl (32-36); Mean Corpuscular Hemoglobin 27.7 pg (26-34); Mean Corpuscular Volume 89.1 fl (80-100); Nucleated Red Blood Cells Absolute Auto 0.000 K/mm3 (0.0-0.012); Nucleated Red Blood Cells Perc 0.0 % (0.0-0.2); Platelet Count Result 285 k/mm3 (150-375); Red Blood Count 3.29 M/mm3 (4.2-5.4); White Blood Count 7.6 K/mm3 (4.5-10.0)
[2025-02-20 04:18] LABS: Alanine Aminotransferase 8 U/L (6-35); Albumin Level 3.4 g/dL (3.5-5.1); Alkaline Phosphatase 93 U/L (38-126); Anion Gap 10 mmol/L (4-12); Aspartate Amino Transferase 18 U/L (14-36); Bilirubin,Total 0.4 mg/dL (0.2-1.3); Blood Urea Nitrogen 33 mg/dL (7-17); Calcium 8.4 mg/dL (8.4-10.2); Carbon Dioxide 22 mmol/L (22-30); Chloride 105 mmol/L (98-107); Estimated CRCL calculation 11 ml/min; Estimated Glomerular Filt Rate 13; Glucose 107 mg/dL (65-110); Magnesium 2.2 mg/dL (1.6-2.3); Potassium 4.4 mmol/L (3.4-5.0); Sodium 137 mmol/L (137-145); Total Protein 6.6 g/dL (6.3-8.2)
[2025-02-20 08:00] VITALS: BP 169/79; PULSE 87; PULSE 92; RESP 23; TEMP 36.9; O2SAT 98
[2025-02-20] MEDS: PANTOPRAZOLE 40 MG TABLET PO (08:30)
[2025-02-20] MEDS: CHOLECALCIFEROL (VITAMIN D3) 25 MCG (1,000 UNITS) TABLET PO (08:30)
[2025-02-20] MEDS: DOXYCYCLINE HYCLATE 100 MG TABLET PO (08:30)
[2025-02-20] MEDS: ISOSORBIDE DINITRATE 10 MG TABLET 20 MG PO (08:30)
[2025-02-20] MEDS: LINEZOLID 600 MG TABLET PO (08:30)
[2025-02-20] MEDS: ASPIRIN 81 MG ENTERIC TABLET PO (08:30)
[2025-02-20] MEDS: SODIUM BICARBONATE TAB 650 MG TABLET 1300 MG PO (08:30)
[2025-02-20] MEDS: GABAPENTIN 100 MG CAPSULE PO (08:30)
--- NOTE | 2025-02-20 09:23 | PCFNICU ---
ICU Rounding Note: Pt current nutrition is Diabetic, Glucerna shakes BID. Nutrition recommendation: continue with current plan of care Last recorded weight is 48.9 kg. Bowel Motility: +BM / Labs Reviewed: Hgb:9.1, HCT:29.3, Alb:3.4, GFR:13, BUN:33, Cr:3.6 Meds Noted: protonix, novolog, miralax Skin: WNL Additional Notes: Pt continues on a diabetic diet, Glucerna shakes in place BID. Intake improved some to 50-75%. Encourage po intake, Agree with diet orders. Following daily in ICU rounds. Monitoring intakes weights, labs, supplement tolerance, plan of care Follow up in 5 days.
--- NOTE | 2025-02-20 09:36 | PCOTNOTE ---
Attempted OT evaluation this AM. Patient actively vomiting and continues to not be willing to work with therapy. Will continue to attempt.
--- NOTE | 2025-02-20 12:09 | PM.IMPN ---
Progress Note: A&P Assessment and Plan (1) Pneumonia: Code(s): J18.9 - Pneumonia, unspecified organism Status: Acute (2) Acute on chronic kidney failure: Qualifiers: Acute renal failure type: unspecified Chronic kidney disease stage: unspecified stage Qualified Code(s): N17.9 - Acute kidney failure, unspecified; N18.9 - Chronic kidney disease, unspecified Code(s): N17.9 - Acute kidney failure, unspecified; N18.9 - Chronic kidney disease, unspecified Status: Acute (3) Suicidal ideation: Code(s): R45.851 - Suicidal ideations Status: Acute (4) Insulin dependent type 2 diabetes mellitus: Code(s): E11.9 - Type 2 diabetes mellitus without complications; Z79.4 - intermodal customer service (current) use of insulin Status: Acute (5) Heart failure, type unknown: Code(s): I50.9 - Heart failure, unspecified Status: Acute (6) Chronic anemia: Code(s): D64.9 - Anemia, unspecified Status: Acute Plan The patient presented to the outside facility for evaluation of nausea, vomiting, diarrhea, abdominal pain, and mild shortness of breath for several days as detailed above. Labs, imaging, EKG, and all reports were personally reviewed. 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 She has been started on ceftriaxone and doxycycline. Attempt sputum for culture. DuoNebs available as needed. She looks a bit dry on exam and her worsening renal function is likely related to dehydration given poor oral intake, vomiting, and diarrhea. Avoid over-hydration given reported history of heart failure, type unknown. She told the admitting nurse that she had a suicidal ideation with a plan however is adamant that she is not suicidal and has no plan. Infection was hospitalized at the [place] couple of weeks ago for the same and she states that she is in a better mental position at this time. Nonetheless, we will consult crisis. I do not think she needs a sitter at this time. Continue basal insulin. Initiate sliding scale insulin, Accu-Cheks, and hypoglycemic protocol. Anemia stable on review of previous labs. Her home medications will be reviewed and resumed as appropriate. Findings and treatment plan were discussed with the patient. Questions were solicited and answered to satisfaction. The patient's medical management will be taken over by the hospitalist team in a.m. Patient presented with with abdominal pain CT scan of abdomen does not show any specific pathology related to her pain. however pain had improved. however today patient c/o abdominal pain, and nausea, patient has not had BM for few days, did KUB which is normal, had a lunch, patient refused miralax, gave senna, still no BM, and complaints of abdominal pain, today patient is agreed to take Miralax and or suppository, patient also express suicidal thoughts, once patient medical problems are resolved, will consult crisis team to evaluate the patient, patient will benefit going to inpatient psychiatric vargas. patient had BM yesterday, today patient feels better and has no knew complaints, patient is clinically stable to be discharged, patient will be seen by crisis team and further recommendation to follow. Subjective Date/time seen: 02/20/25 12:09 Interval history: Abdominal pain. H&P-Narrative: This is a 59-year-old female with history of gastroesophageal reflux disease, ulcers, chronic kidney disease stage 4 with anemia of chronic kidney disease, insulin-dependent type 2 diabetes mellitus, hypertension, and congestive heart failure type unknown (poorly documented and patient denies) who presented to an outside emergency department with complaints of abdominal pain. She has not been feeling well for 3 days with symptoms to include nausea, nonbloody and nonbilious emesis, watery diarrhea, diffuse abdominal pain which she has difficulties describing, and belching. She is feeling perhaps a bit short of breath and has an occasional cough which is nonproductive. She denies sick contacts, fever, sinus congestion, sore throat, chest pain, dysuria, and edema. She also denies sick contacts and concerns for aspiration. She is unsure if there has been any blood in her stool or emesis as she is legally blind. At the outside facility: Vital signs on arrival include a temperature of 98?, blood pressure 120/60, pulse 89, respiratory rate 33, SpO2 86%. Labs were significant for WBC count of 11.9, hemoglobin 10.6, chloride 111, carbon dioxide 19, anion gap 10, BUN 47, creatinine 3.71, glucose 262, lactic acid 1.8, proBNP [id number]. Urinalysis was positive for 2+ protein, 2+ glucose, 1+ blood, 2+ leukocyte esterase, 3 to 5 RBC, 10 to 15 WBC, 4+ bacteria, and rare squamous cells. Chest x-ray showed bilateral sent 3 lobar nodular ground-glass opacities. CT of the abdomen and pelvis showed findings which may represent hypersensitivity pneumonitis, respiratory bronchitis in smokers, or infectious airway disease, patulous esophagus, small hiatal hernia, mild urinary bladder wall thickening, enlarged uterus, presumably secondary to fibroids. She was placed on oxygen and was given a dose of azithromycin ceftriaxone for presumed pneumonia. Lateral transfer was initiated to [place]. After she arrived to the facility and during the nursing assessment, the patient reported that she was hospitalized at the [place] a couple of weeks ago with suicidal ideation. She told the nurse that she was still suicidal and had a plan but would not tell her the plan. The patient was transferred to ICU for suicide precautions and close monitoring . At the time of my evaluation she denies thoughts of suicide and does not have a plan. Patient presented with with abdominal pain CT scan of abdomen does not show any specific pathology related to her pain. however pain had improved. however today patient c/o abdominal pain, and nausea, patient has not had BM for few days, did KUB which is normal, had a lunch, patient refused miralax, gave senna, still no BM, and complaints of abdominal pain, today patient is agreed to take Miralax and or suppository, patient also express suicidal thoughts, once patient medical problems are resolved, will consult crisis team to evaluate the patient, patient will benefit going to inpatient psychiatric vargas. patient had BM yesterday, today patient feels better and has no knew complaints, patient is clinically stable to be discharged, patient will be seen by crisis team and further recommendation to follow. Review of Systems Review of Systems: 12 systems were reviewed and are negative except for as per HPI. All systems reviewed & are unremarkable except as noted in HPI and below (HPI) Exam Narrative: General: Chronically ill-appearing female in the semi-Abernathy position in bed. She does not appear in any acute distress and is nontoxic in appearance. Weight: 49.1 kg. BMI: 21.1. HEENT: She keeps her eyes closed. Tacky mucous membranes. Neck: Supple. Respiratory: Respirations are nonlabored. Lung sounds are a bit coarse peer Cardiovascular: Regular rate and rhythm with S1-S2. Gastrointestinal: Abdomen is soft and nondistended with positive bowel sounds. She is a bit tender to palpation epigastric region. Occasional belching. No guarding or rebound tenderness. Skin: Warm and dry. Extremities: No cyanosis, clubbing, or significant edema. Radial and pedal pulses intact. Neurological: Alert. Speech is clear. No facial asymmetry. Generalized weakness without gross focal findings. Psychiatric: Pleasant and cooperative with appropriate mood and flat affect. Objective Data Vital Signs Vital Signs: Vital Signs - 24 hr 02/19/25 16:00 02/19/25 16:39 02/19/25 20:00 Temperature 36.7 C Pulse Rate 79 80 77 Respiratory Rate 20 Blood Pressure 162/77 H Pulse Oximetry 92 Oxygen Delivery Fraction of Inspired Oxygen 02/19/25 20:15 02/19/25 23:48 02/20/25 00:00 Temperature 36.9 C Pulse Rate 83 80 80 Respiratory Rate 24 H 21 H Blood Pressure 160/75 H Pulse Oximetry 98 Oxygen Delivery Room Air Fraction of Inspired Oxygen 21 02/20/25 04:00 02/20/25 08:00 02/20/25 08:00 Temperature 36.9 C Pulse Rate 76 92 87 Respiratory Rate 23 H Blood Pressure 169/79 H Pulse Oximetry 98 Oxygen Delivery Fraction of Inspired Oxygen Intake/Output Intake/Output: Intake & Output 02/17/25 02/18/25 02/19/25 02/20/25 23:59 23:59 23:59 23:59 Intake Total 4030 1452.7 1240 700 Output Total 3782 295 2228 550 Balance 2680 652.7 -160 150 Meds/Results Medications: Active Medications Generic Name Dose Route Start Last Admin Trade Name Freq PRN Reason Stop Dose Admin Acetaminophen 650 mg 02/16/25 22:41 Acetaminophen 325 Mg Tablet PO Q6H PRN Mild Pain (1-3) or Fever Albuterol/Ipratropium 3 ml 02/17/25 06:52 Ipratropium 0.5 Mg/Albuterol Sulfate 2.5 Mg Ampul.Neb 3 Ml INHALATION Q6HRT PRN Shortness Of Breath Or Wheezing Amlodipine Besylate 10 mg 02/18/25 09:00 02/20/25 08:30 Amlodipine Besylate 10 Mg Tablet PO 10 mg DAILY SHELIA Administration Amoxicillin/Clavulanate Potassium 1 tablet 02/19/25 21:00 02/20/25 08:30 Amoxicillin/Clavulanate K 500-125 Mg Tab PO 02/21/25 21:01 1 tablet Q12HR SHELIA Administration Aspirin 81 mg 02/18/25 09:00 02/20/25 08:30 Aspirin 81 Mg Enteric Tablet PO 81 mg DAILY SHELIA Administration Atorvastatin Calcium 80 mg 02/17/25 21:00 02/19/25 20:30 Atorvastatin 40 Mg Tablet PO 80 mg HS SHELIA Administration Bisacodyl 10 mg 02/19/25 16:11 02/19/25 16:33 Bisacodyl 10 Mg Suppository RECTAL 10 mg QAM PRN Administration Constipation Dextrose 12.5 gm 02/16/25 22:41 Dextrose 50% 25 Gm/50 Ml Syringe IV PUSH PRN PRN Hypoglycemia Protocol Doxycycline Hyclate 100 mg 02/17/25 09:00 02/20/25 08:30 Doxycycline Hyclate 100 Mg Tablet PO 02/21/25 21:01 100 mg Q12HR SHELIA Administration Gabapentin 100 mg 02/17/25 17:00 02/20/25 08:30 Gabapentin 100 Mg Capsule PO 100 mg BID SHELIA Administration Glucagon 1 mg 02/16/25 22:41 Glucagon For Inj 1 Mg Vial IM PRN PRN Hypoglycemia Protocol Glucose 15 gm 02/16/25 22:41 Glucose Oral Gel 15 Gm Of Glucse In 37.5 Gm Tube PO PRN PRN Hypoglycemia Protocol Dextrose 1,000 mls @ 100 mls/hr 02/16/25 22:41 Dextrose 5% 1,000 Ml IVPB PRN PRN Hypoglycemia Protocol Insulin Aspart 2 - 5 units 02/17/25 08:00 02/20/25 08:30 Insulin Aspart (*Bkc) 100 Units/Ml SUB-Q Not Given TID[facility] Protocol Insulin Aspart 1 - 2 units 02/17/25 21:00 02/19/25 20:30 Insulin Aspart (*Bkc) 100 Units/Ml SUB-Q Not Given HS [facility] Protocol Isosorbide Dinitrate 20 mg 02/17/25 17:00 02/20/25 08:30 Isosorbide Dinitrate 10 Mg Tablet PO 20 mg BID SHELIA Administration Linezolid 600 mg 02/17/25 12:00 02/20/25 08:30 Linezolid 600 Mg Tablet PO 02/23/25 21:01 600 mg Q12HR SHELIA Administration Metoclopramide HCl 10 mg 02/19/25 08:30 02/20/25 03:15 Metoclopramide Hcl Inj 10 Mg/2 Ml Vial IV PUSH 10 mg Q8HR PRN Administration Nausea Pantoprazole Sodium 40 mg 02/17/25 21:00 02/20/25 08:30 Pantoprazole 40 Mg Tablet PO 40 mg Q12HR SHELIA Administration Polyethylene Glycol 17 gm 02/19/25 12:00 02/20/25 08:30 Polyethylene Glycol 3350 17 Gm Powd.Pack PO Not Given NOON SHELIA Senna/Docusate Sodium 1 tab 02/18/25 21:00 02/19/25 20:30 Senna/Docusate Sodium Tablet PO 1 tab HS SHELIA Administration Sodium Bicarbonate 1,300 mg 02/18/25 17:00 02/20/25 08:30 Sodium Bicarbonate Tab 650 Mg Tablet PO 1,300 mg BID SHELIA Administration Vitamin D 25 mcg 02/18/25 09:00 02/20/25 08:30 Cholecalciferol (Vitamin D3) 25 Mcg (1,000 Units) Tablet PO 25 mcg DAILY SHELIA Administration Radiology Results: ITS Impressions Abdomen X-Ray 02/18/25 15:19 IMPRESSION: NO ACUTE ABDOMINAL FINDINGS. Labs Labs: Laboratory Results - last 24 hr 02/19/25 02/19/25 02/19/25 12:07 16:30 20:28 WBC RBC Hgb Hct MCV MCH MCHC RDW Plt Count MPV Immature Gran % (Auto) Neut % (Auto) Lymph % (Auto) [place] % (Auto) Eos % (Auto) Baso % (Auto) Lymph # (Auto) [place] # (Auto) Eos # (Auto) Baso # (Auto) Abs Immat Gran (auto) Absolute Neuts (auto) Absolute Nucleated RBC Nucleated RBC % Sodium Potassium Chloride Carbon Dioxide Anion Gap BUN Creatinine Estim Creat Clear Calc Estimated GFR Glucose POC Capillary Glucose 152 H 126 H 130 H Calcium Phosphorus Magnesium Total Bilirubin AST ALT Alkaline Phosphatase Total Protein Albumin 02/20/25 02/20/25 03:49 07:52 WBC 7.6 RBC 3.29 L Hgb 9.1 L Hct 29.3 L MCV 89.1 MCH 27.7 MCHC 31.1 L RDW 14.0 Plt Count 285 MPV 10.4 Immature Gran % (Auto) 0.3 Neut % (Auto) 52.0 Lymph % (Auto) 34.3 [place] % (Auto) 8.9 H Eos % (Auto) 3.8 Baso % (Auto) 0.7 Lymph # (Auto) 2.59 [place] # (Auto) 0.7 H Eos # (Auto) 0.3 Baso # (Auto) 0.1 Abs Immat Gran (auto) 0.02 Absolute Neuts (auto) 3.9 Absolute Nucleated RBC 0.000 Nucleated RBC % 0.0 Sodium 137 Potassium 4.4 Chloride 105 Carbon Dioxide 22 Anion Gap 10 BUN 33 H Creatinine 3.66 H Estim Creat Clear Calc 11 Estimated GFR 13 L Glucose 107 POC Capillary Glucose 98 Calcium 8.4 Phosphorus 4.2 Magnesium 2.2 Total Bilirubin 0.4 AST 18 ALT 8 Alkaline Phosphatase 93 Total Protein 6.6 Albumin 3.4 L Quality VTE Prophylaxis VTE prophylaxis: mechanical ordered
--- NOTE | 2025-02-20 13:45 | P.DS_ITS ---
DS: Admitting Diagnosis Discharge Date 02/20/25 Admitting Diagnosis Abdominal pain. DS: Discharge Diagnosis Discharge Diagnosis (1) Pneumonia: Code(s): J18.9 - Pneumonia, unspecified organism Status: Acute (2) Acute on chronic kidney failure: Qualifiers: Acute renal failure type: unspecified Chronic kidney disease stage: unspecified stage Qualified Code(s): N17.9 - Acute kidney failure, unspecified; N18.9 - Chronic kidney disease, unspecified Code(s): N17.9 - Acute kidney failure, unspecified; N18.9 - Chronic kidney disease, unspecified Status: Acute (3) Suicidal ideation: Code(s): R45.851 - Suicidal ideations Status: Acute (4) Insulin dependent type 2 diabetes mellitus: Code(s): E11.9 - Type 2 diabetes mellitus without complications; Z79.4 - half-way (current) use of insulin Status: Acute (5) Heart failure, type unknown: Code(s): I50.9 - Heart failure, unspecified Status: Acute (6) Chronic anemia: Code(s): D64.9 - Anemia, unspecified Status: Acute Plan The patient presented to the outside facility for evaluation of nausea, vomiting, diarrhea, abdominal pain, and mild shortness of breath for several days as detailed above. Labs, imaging, EKG, and all reports were personally reviewed. 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 She has been started on ceftriaxone and doxycycline. Attempt sputum for culture. DuoNebs available as needed. She looks a bit dry on exam and her worsening renal function is likely related to dehydration given poor oral intake, vomiting, and diarrhea. Avoid over-hydration given reported history of heart failure, type unknown. She told the admitting nurse that she had a suicidal ideation with a plan however is adamant that she is not suicidal and has no plan. Infection was hospitalized at the [place] couple of weeks ago for the same and she states that she is in a better mental position at this time. Nonetheless, we will consult crisis. I do not think she needs a sitter at this time. Continue basal insulin. Initiate sliding scale insulin, Accu-Cheks, and hypoglycemic protocol. Anemia stable on review of previous labs. Her home medications will be reviewed and resumed as appropriate. Findings and treatment plan were discussed with the patient. Questions were solicited and answered to satisfaction. The patient's medical management will be taken over by the hospitalist team in a.m. Patient presented with with abdominal pain CT scan of abdomen does not show any specific pathology related to her pain. however pain had improved. however today patient c/o abdominal pain, and nausea, patient has not had BM for few days, did KUB which is normal, had a lunch, patient refused miralax, gave senna, still no BM, and complaints of abdominal pain, today patient is agreed to take Miralax and or suppository, patient also express suicidal thoughts, once patient medical problems are resolved, will consult crisis team to evaluate the patient, patient will benefit going to inpatient psychiatric vargas. patient had BM yesterday, today patient feels better and has no knew complaints, patient is clinically stable to be discharged, patient will be seen by crisis team and further recommendation to follow. DS: Summary Hospital Course Hospital Course: Patient presented with with abdominal pain CT scan of abdomen does not show any specific pathology related to her pain. however pain had improved. however today patient c/o abdominal pain, and nausea, patient has not had BM for few days, did KUB which is normal, had a lunch, patient refused miralax, gave senna, still no BM, and complaints of abdominal pain, today patient is agreed to take Miralax and or suppository, patient also express suicidal thoughts, once patient medical problems are resolved, will consult crisis team to evaluate the patient, patient will benefit going to inpatient psychiatric vargas. patient had BM yesterday, today patient feels better and has no knew complaints, patient is clinically stable to be discharged, patient will be seen by crisis team and further recommendation to follow. patient was seen by crisis team and was evaluated, recommended patient can be discharged home and does not need inpatient psychiatric evaluation. Time Spent with Patient Time attestation: Total time spent providing and/or coordinating discharge services: Exam Narrative: General: Chronically ill-appearing female in the semi-Abernathy position in bed. She does not appear in any acute distress and is nontoxic in appearance. Weight: 49.1 kg. BMI: 21.1. HEENT: She keeps her eyes closed. Tacky mucous membranes. Neck: Supple. Respiratory: Respirations are nonlabored. Lung sounds are a bit coarse peer Cardiovascular: Regular rate and rhythm with S1-S2. Gastrointestinal: Abdomen is soft and nondistended with positive bowel sounds. She is a bit tender to palpation epigastric region. Occasional belching. No guarding or rebound tenderness. Skin: Warm and dry. Extremities: No cyanosis, clubbing, or significant edema. Radial and pedal pulses intact. Neurological: Alert. Speech is clear. No facial asymmetry. Generalized weakness without gross focal findings. Psychiatric: Pleasant and cooperative with appropriate mood and flat affect. DS: Data Data Completed and Pending Labs on day of discharge: Labs from last 24 hours 02/20/25 02/20/25 02/20/25 12:22 07:52 03:49 WBC 7.6 RBC 3.29 L Hgb 9.1 L Hct 29.3 L MCV 89.1 MCH 27.7 MCHC 31.1 L RDW 14.0 Plt Count 285 MPV 10.4 Immature Gran % (Auto) 0.3 Neut % (Auto) 52.0 Lymph % (Auto) 34.3 [place] % (Auto) 8.9 H Eos % (Auto) 3.8 Baso % (Auto) 0.7 Lymph # (Auto) 2.59 [place] # (Auto) 0.7 H Eos # (Auto) 0.3 Baso # (Auto) 0.1 Abs Immat Gran (auto) 0.02 Absolute Neuts (auto) 3.9 Absolute Nucleated RBC 0.000 Nucleated RBC % 0.0 Sodium 137 Potassium 4.4 Chloride 105 Carbon Dioxide 22 Anion Gap 10 BUN 33 H Creatinine 3.66 H Estim Creat Clear Calc 11 Estimated GFR 13 L Glucose 107 POC Capillary Glucose 101 98 Calcium 8.4 Phosphorus 4.2 Magnesium 2.2 Total Bilirubin 0.4 AST 18 ALT 8 Alkaline Phosphatase 93 Total Protein 6.6 Albumin 3.4 L 02/19/25 02/19/25 20:28 16:30 WBC RBC Hgb Hct MCV MCH MCHC RDW Plt Count MPV Immature Gran % (Auto) Neut % (Auto) Lymph % (Auto) [place] % (Auto) Eos % (Auto) Baso % (Auto) Lymph # (Auto) [place] # (Auto) Eos # (Auto) Baso # (Auto) Abs Immat Gran (auto) Absolute Neuts (auto) Absolute Nucleated RBC Nucleated RBC % Sodium Potassium Chloride Carbon Dioxide Anion Gap BUN Creatinine Estim Creat Clear Calc Estimated GFR Glucose POC Capillary Glucose 130 H 126 H Calcium Phosphorus Magnesium Total Bilirubin AST ALT Alkaline Phosphatase Total Protein Albumin Preliminary micro results at discharge 02/17/25 04:59 Blood Culture - Preliminary Blood 02/17/25 04:48 Blood Culture - Preliminary Blood Discharge Plan Discharge Attending physician on discharge: Aubrey Carrion Consulting providers: Vic Haley; Eliz Burton; Jayesh King Discharging Clinician: Dax Olivera Patient Disposition: Home Activity: as tolerated Diet: heart healthy and high fiber Patient Instructions: Antibiotic Form, Heart Failure (GEN), Acute Kidney Injury (GEN), Low-Sodium Diet (GEN), Hypoxia (GEN), Pulse Oximetry (GEN) Patient Language: [place]i Stand Alone Forms: General Discharge Information Follow-up/Referrals: PHYSICIAN NOT ON STAFF,NONSTAFF [Primary Care Provider] - Discharge Medications: New ipratropium-albuterol 0.5 mg-3 mg(2.5 mg base)/3 mL Solution For Nebulization 3 ml inhalation Q6HRT PRN (Reason: Shortness Of Breath Or Wheezing) Qty: 30 0RF polyethylene glycol 3350 [Miralax] 17 gram Powder In Packet 17 g PO NOON Qty: 14 0RF sennosides-docusate sodium [Senokot-S] 8.6-50 mg Tablet 1 tab PO HS Qty: 30 0RF linezolid 600 mg Tablet 600 mg PO Q12HR Qty: 10 0RF doxycycline hyclate 100 mg Tablet 100 mg PO Q12HR Qty: 10 0RF amoxicillin-pot clavulanate [Augmentin] 500-125 mg Tablet 1 tablet PO Q12HR Qty: 10 0RF Continued darbepoetin jeffrey-albumin 40 mcg/mL solution 40 mcg subcut MONTHLY PRN (Reason: low hgb) Rx Instructions: give if hgb is less than 10 isosorbide dinitrate 10 mg tablet 20 mg PO BID sertraline 50 mg tablet 100 mg PO DAILY amlodipine 10 mg tablet 10 mg PO DAILY atorvastatin [Lipitor] 80 mg tablet 80 mg PO HS gabapentin 100 mg capsule 100 mg PO BID sodium bicarbonate 650 mg tablet 1,300 mg PO BID Rx Instructions: 2 tabs BID bumetanide 1 mg tablet 1 mg PO DAILY Rx Instructions: 1/2 tab daily hydralazine 10 mg tablet 10 mg PO TID famotidine 40 mg tablet 40 mg PO Q12H metoclopramide HCl 10 mg tablet 5 mg PO Q6H PRN (Reason: nausea) pantoprazole 40 mg Tablet,Delayed Release (Dr/Ec) 40 mg PO Q12HR Qty: 60 0RF patiromer calcium sorbitex 8.4 gram powder in packet 8.4 g PO .ever aspirin [Adult Low Dose Aspirin] 81 mg tablet,delayed release (DR/EC) 81 mg PO DAILY cholecalciferol (vitamin D3) [Vitamin D3] 25 mcg (1,000 unit) capsule 25 mcg PO DAILY Date of admission: 02/17/25 10:05 Primary Care Provider: PHYSICIAN NOT ON STAFF,NONSTAFF Admitting Provider: Aubrey Carrion Attending physician on admission: Dax Olivera Condition: Stable
[2025-02-20 18:28] LABS: Pneumococcal Antigen Urine NOT DETECTED
[2025-02-21 20:29] LABS: Mycoplasma IgM Antibody Titer. 345 U/mL
[2025-02-22 16:53] LABS: Legionella pneumophila Ag Ur. NOT DETECTED
== END 2025-02-20 15:30 | disposition home or self-care (01) | DRG 193 ==
LOC: ANHIMU 22:44 → ANHICU 23:30
PROVIDERS: Internal Medicine; Physician Assistant; Admitting Provider Internal Medicine; Visit Provider Family Medicine
DX: J18.9 Pneumonia, unspecified organism (principal); E43 Unspecified severe protein-calorie malnutrition; I13.0 Hypertensive heart and chronic kidney disease with heart failure and stage 1 through stage 4 chronic kidney disease, or unspecified chronic kidney disease; N18.4 Chronic kidney disease, stage 4 (severe); N17.9 Acute kidney failure, unspecified; R45.851 Suicidal ideations; N39.0 Urinary tract infection, site not specified; B95.2 Enterococcus as the cause of diseases classified elsewhere; E11.22 Type 2 diabetes mellitus with diabetic chronic kidney disease; E86.0 Dehydration; E78.5 Hyperlipidemia, unspecified; E11.319 Type 2 diabetes mellitus with unspecified diabetic retinopathy without macular edema; K21.9 Gastro-esophageal reflux disease without esophagitis; I44.7 Left bundle-branch block, unspecified; D63.1 Anemia in chronic kidney disease; Z20.822 Contact with and (suspected) exposure to COVID-19; Z96.652 Presence of left artificial knee joint; Z79.4 Long term (current) use of insulin; Z89.511 Acquired absence of right leg below knee; Z68.21 Body mass index [BMI] 21.0-21.9, adult
CPT/HCPCS: 36415; 74018; 80048; 80053; 82803; 82948; 83735; 84100; 85025; 85027; 86738; 87040; 87449; 87636; 87641; 87899; 97161; A9270; G0378; G0379; J0696; J2765; J3475

== ENCOUNTER 2025-02-25 16:09 | Emergency (ER) | payer OTHER, SELFPAY ==
[2025-02-25] VITALS (23 sets, daily range): BP systolic 153–192; BP diastolic 82–142; PULSE 88–109; RESP 12–28; TEMP 36.7; O2SAT 95–100
--- NOTE | ~2025-02-25 | CT_ITS ---
CLINICAL INDICATION: Abdominal pain, vomiting COMPARISON: 02/16/2025. TECHNIQUE: Multiple contiguous axial images of the abdomen and pelvis were performed without the admi nistration of intravenous contrast The dose-length product (DLP) was 491.80 mGy-cm. Automated exposure control and iterative reconstruction technique were employed. FINDINGS/OBSERVATIONS: Visualized lower thorax: Patchy groundglass opacities throughout the bilateral lung bases, improved from prior. The heart is of normal size, without pericardial effusion. Small hiatal hernia is present. Liver: The liver demonstrates homogeneous attenuation and is not enlarged. Gallbladder and biliary system: The gallbladder is only minimally distended, and otherwise unremarkable. Pancreas: Limited evaluation of the pancreas secondary to the lack of intravenous contrast. Spleen: The spleen demonstrates homogeneous attenuation and is not enlarged. Kidneys: The bilateral kidneys are unremarkable, without hydronephrosis or renal calculi. Extensive vascular c alcifications are noted. Adrenal glands: Unremarkable. Gastrointestinal tract: Colonic diverticulosis without surrounding inflammatory change. Fecal stasis within the rectum. Mural thickening is identified within the stomach and the distal esophagus, consistent with patient's history. Appendix: The appendix is not definitively visualized. However, no pericecal inflammatory change is identified suggest the presence of acute appendicitis. Vasculature: Calcified atherosclerotic disease. Lymph nodes: Limited evaluation secondary to the lack of intravenous contrast. Pelvic structures: The bladder is moderately distended, and otherwise unremarkable. The uterus is anteverted and anteflexed, and demonstrates multiple calcifications suggesting prior fi broid disease. Body wall and musculoskeletal: Significant degenerative disease within the lumbosacral spine with compression of the superior endpla te of the L5 vertebral body, unchanged from 02/16/2025. Compression of the superior endplate of T12 is also noted. The degenerative disease and diffuse bony demineralization is far advanced for patient of this age. IMPRESSION: Mural thickening within the stomach and distal esophagus consistent with patient's history. Otherwise, no acute findings within the lower chest, abdomen or pelvis, as detailed above. Reviewed, dictated and finalized at location A. IMPRESSION: Mural thickening within the stomach and distal esophagus consistent with patien t's history. Otherwise, no acute findings within the lower chest, abdomen or pelvis, as deta iled above.
--- NOTE | ~2025-02-25 | XR_ITS ---
Portable chest x-ray Comparison: 02/16/2025 Clinical History: Cough Findings: Lungs are clear, without focal consolidation or pleural effusion. Cardiomediastinal silho uette is stable. Severe degenerative change probably present at the right glenohumeral joint. Impression: Clear lungs. Reviewed, dictated and finalized at location . Impression: Clear lungs.
--- OUTSIDE RECORDS SUMMARY | 2025-02-25 16:11 | XMS_ITS | Encounter Summary ---
Author Organization [facility] Address [address] [place] [address] Care Team Providers Care Manager Cleaning Name Role Phone None, Provider MD Primary Care Provider Jyothi treviño Non-Staff, Provider Primary Care Provider Luis Manuel Osborne MD Primary Care Provider [phone] Destinee Rodriguez NP Primary Care Provider [phone] Reason for Referral * Surgical (Routine) - Closed Specialty Diagnoses / Procedures Referred By Ashlie dunbar Referred To Contact Diagnoses Osteomyelitis Procedures Case request operating room: BONE BIOPSY-FOOT Jaxon August MD [facility] [address] [place] [address] Phone: tel: fax: [facility] [place] [address] [place] [address] Phone: tel: Referral ID Status Reason Start Date Expiration Date Visits Re quested Visits Authorized [id number] Closed 03/09/2022 04/06/2023 1 1 Encounter Details Date Type Department Care Team (Late st Contact Info) Description 03/06/2022 Prep for Procedure [facility], [facility] [place], [place] [id number] Jaxon August MD [facility]. [address] [place] [address] Social History Tobacco Use Types Packs/Day Years Used Date Smoking Tobacco: Never Smokeless Tobacco: Never Comments Unknown Sex and Gender Information Value Date Recorded Sex Assigned at Female 10/22/2024 9:59 PM LIFE SKILLS CONSULTANT Legal Sex Female 9:54 PM LIFE SKILLS CONSULTANT Gender Identity Not on file Sexual [...] AM CDT Gómez Martin RN Active * Shannon Suicide Severity Rating Scale (Screener/Recent Self-Report) Question [...] Rule Out 10/22/2024 10/22/2024 10/22/2024 10:40 PM LIFE SKILLS CONSULTANT Respiratory Rule Out 10/22/2024 10/22/2024 025 10:41 PM LIFE SKILLS CONSULTANT documented as of this encounter Care Teams Manager Cleaning Relationship Specialty Start Date End Date None, Provider, PCP - General 08/20/21 06/01/22 Non-Staff, Provider PCP - General UNKNOWN PHYSICIAN SPECIALTY 06/02/22 05/07/23 Luis Manuel Mccall MD [facility] [place] [address] PCP - General FAMILY PRACTICE 05/08/23 09/07/23 Dest[facility] [place] [facility] [place] [address] PCP - General NURSE PRACTITIONER 09/08/23 documented as of this encounter
--- OUTSIDE RECORDS SUMMARY | 2025-02-25 16:11 | XMS_ITS | Encounter Summary ---
Author Organization [facility] Address [address] [place] [address] Care Team Providers Care Vacuum Worker Name Role Phone Destinee Rodriguez NP Primary Care Provider [phone] Encounter Details Date Type Department Care Team (Late st Contact Info) Description 09/17/2023 Hospital Follow-up Call [facility] Cardiovascular Care Unit [address] [place] [address] Xiomara Schmitt RN Social History Tobacco Use Types Packs/Day Years Used Date Smoking Tobacco: Never Smokeless Tobacco: Never [facility] Utilities Answer Date Recorded In [...] Sex Assigned at Female 10/22/2024 9:59 PM ATHLETIC FIELD CUSTODIAN Legal Sex Female 9:54 PM ATHLETIC FIELD CUSTODIAN Gender Identity Not on file Sexual Orientation [...] Assessment Author Status No 09/08/2023 3:58 AM ATHLETIC FIELD CUSTODIAN Ever Yancey RN Active documented as of this encounter Mental Status * Because of a physical, mental, or emotional condition, do you have serious difficulty concentrating, remembering, or making decisions? Answer Entry Date Author Status No 09/08/2023 3:58 AM ATHLETIC FIELD CUSTODIAN Ever Yancey RN Active documented in this [...] Rule Out 10/22/2024 10/22/2024 10/22/2024 10:40 PM ATHLETIC FIELD CUSTODIAN Respiratory Rule Out 10/22/2024 10/22/2024 025 10:41 PM ATHLETIC FIELD CUSTODIAN documented as of this encounter Care Teams Vacuum Worker Relationship Specialty Start Date End Date Destinee Rodriguez, RKEHA PCP - General NURSE PRACTITIONER 09/08/23 documented as of this encounter
--- OUTSIDE RECORDS SUMMARY | 2025-02-25 16:11 | XMS_ITS | Clinical Summary ---
Author Organization [facility] Address [address] [place] [address] Care Team Providers Care Education Finance Processor Name Role Phone Destinee Rodriguez NP Primary Care Provider [phone] Allergies No known active allergies Medications amLODIPine [...] heart failure with left ventricular diastolic dysfunction ([facility] HHS/HCC),Hypoxic respiratory failure ([facility] HHS/HCC) 1 Device by Nasal route continuous. Nasal Cannula. 2L continuous oxygen. Portable tank and stationary concentrator 1 Device 4 Active OXYGEN CONCENTRATOR SUPPLY, DME,Indications: Congestive heart failure with left ventricular diastolic dysfunction (CMS/HCC HHS/HCC),Hypoxic respiratory failure (CMS/[facility] HHS/HCC) 1 Device by Nasal route [...] failure wit h left ventricular diastolic dysfunction ([facility] HHS/HCC) 09/13/2023 Hypoxic respiratory failure ([facility] HHS/HCC) Fracture of femoral neck, right ([facility] ) 05/04/2023 Osteomyelitis ([facility]) 02/26/2022 Immunizations Immunization Administration Dates Next [...] drink = 0.6 oz pur e alcohol) [facility] Utilities Answer Date Recorded In the past 12 months has e logolineup, gas, oil, or water [employer] threatened to shut off services in your [...] place to sleep or slept in a longterm (including now)? No 09/08/2023 Housing Stability Vital [...] were you homeless or living in a longterm (including now)? Patient declined 10/23/2024 Comments No Sex and Gender Information Value Date Recorded Sex Assigned at Female 10/22/2024 9:59 PM LITHOGRAPHIC PROOFER Legal Sex Female 9:54 PM LITHOGRAPHIC PROOFER Gender Identity Not on file Sexual Orientation Not on file Last Filed Vital Signs Vital Sign Reading Time Taken Comments Blood Pressure 107/54 10/24/2024 8:00 AM LITHOGRAPHIC PROOFER Pulse 77 10/24/2024 8:00 AM LITHOGRAPHIC PROOFER Temperature 36 C (96.8 F) 10/24/2024 8:00 AM LITHOGRAPHIC PROOFER Respiratory Rate 16 10/24/2024 8:00 AM LITHOGRAPHIC PROOFER Oxygen Saturation 100% 10/24/2024 8:00 AM LITHOGRAPHIC PROOFER Inhaled Oxygen Concentration - - Weight 49.4 kg (109 lb) 10/23/2024 12:00 PM LITHOGRAPHIC PROOFER Height 149.9 cm (4' 11) 10/23/2024 12:00 PM LITHOGRAPHIC PROOFER Body Mass Index 22.02 10/23/2024 12:00 PM LITHOGRAPHIC PROOFER Plan of Treatment Health Maintenance Due Date [...] Colón, BERNIE Medical Devices Implanted Type Area Olive Pitter Device Identifier Shelf Expiration Date Model / Serial / Lot Cement Bone Biomet 40gm - [id number] Implanted:Qty: 2 on 05/05/2023 by Idris Almanza MD at [facility] Cement Implant Right: Hip [employer] 08/19/2025 [id number] / / Plug Cement Kvng Gabriel Medullary 20mm - [id number] Implanted:Qty: 1 on 05/05/2023 by Idris Almanza MD at [facility] Cement Implant Right: Hip [employer] 01/11/2027 [id number] / / Shell Kvng Bipolar 41mm Od - [id number] Implanted:Qty: 1 on 05/05/2023 by Idris Almanza MD at [facility] Hip Components Right: Hip [employer] 12/17/2025 [id number] / / Liner Kvng Bipolar Hip 22 Id 40/41mm - [id number] Implanted:Qty: 1 on 05/05/2023 by Idris Almanza MD at [facility] Hip Components Right: Hip [employer] 08/19/2025 [id number] / / [id number] Stem 1214 Implanted:Qty: 1 on 05/05/2023 by Idris Almanza MD at [facility] Right: Hip [employer] 08/25/2027 [id number] / / Femoral Head Implanted:Qty: 1 on 05/05/2023 by Idris Almanza MD at [facility] Right: Hip [employer] 09/15/2031 [id number] / / Explanted Type Area Olive Pitter Device Identifier Shelf Expiration Date Model / Serial / Lot System Bone Cement 1 2 Mix - [id number] Explanted:Qty: 1 on 05/05/2023 by Idris Almanza MD at [facility] Cement Implant Right: Hip [employer] 12/21/2025 [id number] / / Femoral Cement Preparation Kit Explanted:Qty: 1 on 05/05/2023 by Idris Almanza MD at [facility] Right: Hip [employer] 11/25/2027 [id number] / / Insurance MEDICARE PART A MEDICAID * Guarantor: Helga Deanna Stone Account Type Relation to Patient Date of Phone Billing Address [employer] 1965 [address] [place] [address] Advance Directives Documents on File Type Date Recorded Patient Card Writer Hand Expl anation Advance Directives and Livin g [...] 1:37 PM 03/17/2022 7:40 PM Care Teams Education Finance Processor Relationship Specialty Start Date End Date Destinee Rodriguez NP PCP - General NURSE PRACTITIONER 09/08/23
--- NOTE | 2025-02-25 16:20 | ED_ITS ---
HPI - Weakness General Chief complaint: Nausea/Vomiting/Diarrhea Stated complaint: weakness vomiting Time Seen by Provider: 02/25/25 16:19 History of Present Illness HPI Narrative: 59 years old white female came from home by ambulance complaining of nausea, A lot of vomiting, a lot of diarrhea for the last 4 days. Patient was discharged from [facility] February 20 with diagnosis of pneumonia, , acute on chronic kidney failure, suicidal ideation, insulin dependent diabetes, heart failure, and chronic anemia . Patient was discharged on linezolid, doxycycline and Augmentin. Patient came to [facility] on February 16 with the same Complains as above and was transferred to [facility] at that time , got discharged on February 20 Patient came alone, no family member at this time Patient denies any suicidal or homicidal ideation. Related Data Home Medications ?Medication ?Instructions ?Recorded ?Confirmed ?Last Taken ?Type amlodipine 10 mg tablet 10 mg PO DAILY 12/18/24 02/17/25 Unknown History atorvastatin 80 mg tablet (Lipitor) 80 mg PO HS 12/18/24 02/17/25 Unknown History bumetanide 1 mg tablet 1 mg PO DAILY 12/18/24 02/17/25 Unknown History darbepoetin jeffrey-albumin 40 mcg/mL 40 mcg subcut MONTHLY PRN low hgb 12/18/24 02/25/25 Unknown History in albumin injection gabapentin 100 mg capsule 100 mg PO BID 12/18/24 02/17/25 Unknown History hydralazine 10 mg tablet 10 mg PO TID 12/18/24 02/17/25 Unknown History isosorbide dinitrate 10 mg tablet 20 mg PO BID 12/18/24 02/17/25 Unknown History sertraline 50 mg tablet 100 mg PO DAILY 12/18/24 02/17/25 Unknown History sodium bicarbonate 650 mg tablet 1,300 mg PO BID 12/18/24 02/17/25 Unknown History famotidine 40 mg tablet 40 mg PO Q12H 02/16/25 02/17/25 Unknown History aspirin 81 mg tablet,delayed 81 mg PO DAILY 02/17/25 02/17/25 Unknown History release (Adult Low Dose Aspirin) cholecalciferol (vitamin D3) 25 25 mcg PO DAILY 02/17/25 02/17/25 Unknown History mcg (1,000 unit) capsule (Vitamin D3) patiromer calcium sorbitex 8.4 8.4 g PO .ever 02/17/25 02/17/25 Unknown History gram oral powder packet metoclopramide HCl 5 mg tablet 5 mg PO Q8H PRN nausea and vomiting 02/25/25 Unknown History Allergies Allergy/AdvReac Type Severity Reaction Status Date / Time No Known Allergies Allergy Unknown Verified 02/25/25 16:20 Review of Systems 2 Review of Systems: All systems reviewed & are unremarkable except as noted in HPI and below PMFSH Past Medical History Medical History Chronic anemia Erosive esophagitis Insulin dependent type 2 diabetes mellitus Chronic kidney disease, stage 4 (severe) 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 Code status: Full code. Smoking status: Never smoker Second hand tobacco smoke exposure: No Additional smoking assessment comments: Per patient her spouse smokes in the home. Alcohol intake: never Substance use: never Substance use type: does not use Do You Feel Safe in your Home?: Yes Lack of Transportation: No Lack of Food: Never True Current Housing: I Have Housing Concerned About Future Housing: No Difficulty Paying Gas/Electric Bills: No Difficulty Paying for Meds: No Currently Unemployed: No Education: Decline to Answer Difficulty w/ Childcare or Family Care: No Living arrangements: with family Additional living arrangements comments: Lives with in [place]. They have 2 grown children. Occupation/Education: retired Additional occupation/education comments: Was in the [employer]. Spiritual care concerns: No Agree to blood products: Yes Exam 2 Narrative: General appearance: Well-developed, well-nourished, coughing, restless Skin: Normal color Head: Normocephalic, nontraumatic Eyes: Clear conjunctiva ENT: Oropharynx normal, ears normal, nose normal Neck: Supple, nontender Chest and respiratory: Airway patent, no respiratory distress, no accessory muscle use Heart: Regular rate/rhythm Abdomen: Soft, diffuse abdominal pain, no organomegaly, quiet bowel sounds Vascular: Normal peripheral pulses, normal capillary refill. Musculoskeletal: right below-knee amputation Neurologic: Alert and oriented ?3, SCHOOL PHYSICAL THERAPIST is normal as tested, no gross motor deficit Course Vital Signs Vital signs: Vital Signs Temperature 36.7 C 02/25/25 16:27 Pulse Rate 88 02/25/25 16:27 Respiratory Rate 18 02/25/25 16:27 Blood Pressure 180/88 H 02/25/25 16:27 Pulse Oximetry 100 02/25/25 16:27 Oxygen Delivery Room Air 02/25/25 16:27 Temperature 36.7 C 02/25/25 16:27 Pulse Rate 99 02/25/25 18:15 Respiratory Rate 12 02/25/25 18:15 Blood Pressure 159/142 H 02/25/25 17:46 Pulse Oximetry 99 02/25/25 18:15 Oxygen Delivery Room Air 02/25/25 16:27 MDM - Weakness MDM Narrative Medical decision making narrative: patient came with nausea, vomiting and diarrh Vital signs showing blood pressure 180/88 otherwise within normal limit Physical examination showing restless patient with intermittent coughing and dry heaving Differential diagnosis include anxiety like symptoms, aspiration pneumonia, dehydration, electrolyte imbalance, Blood workup today includes CBC, CMP, blood culture, lactic acid, CRP, troponin showed BUN 41, creatinine 3.95, troponin 0.035, C-reactive protein 2.4 Urinalysis showed no significant changes CT abdomen and pelvis with out contrast showed no acute abnormality Diagnosis acute on top of chronic renal failure, elevated troponin. In the ED patient received 1 L of normal saline, 4 mg of Zofran with significant improvement. I believe patient have psych element which triggering her nausea and vomiting. Transferred to [facility] discussed with Dr. Tran /hospitalist Medical Records Attestation: I reviewed the patient's medical records. Lab Data Attestation: I reviewed the patient's lab results. 02/25/25 16:44 02/25/25 16:43 Labs: Lab Results 02/25/25 02/25/25 02/25/25 Range/Units 16:43 16:44 16:46 WBC 7.4 (4.8-10.8) K/mm3 RBC 3.92 L (4.20-5.40) M/mm3 Hgb 10.9 L (12.0-15.0) g/dL Hct 34.6 L (35.0-49.0) % MCV 88.3 (78.0-102.0) fL MCH 27.8 (27.0-31.0) pg MCHC 31.5 L (32-36) g/dL RDW 14.0 (11.6-14.4) % Plt Count 294 (150-420) K/mm3 MPV 9.6 (9.2-11.8) fl Immature Gran % (Auto) 0.5 H (0.0-0.0) % Neut % (Auto) 72.0 H (50.0-70.0) % Lymph % (Auto) 19.9 (18.0-42.0) % [place] % (Auto) 6.8 (2.0-11.0) % Eos % (Auto) 0.3 L (1.0-6.0) % Baso % (Auto) 0.5 (0.0-1.0) % Lymph # (Auto) 1.47 (1.10-4.50) K/mm3 [place] # (Auto) 0.50 (0.10-0.90) K/mm3 Eos # (Auto) 0.02 (0.02-0.50) K/mm3 Baso # (Auto) 0.04 (0.00-0.10) K/mm3 Abs Immat Gran (auto) 0.04 H (0.00-0.00) K/mm3 Absolute Neuts (auto) 5.30 (1.70-7.20) K/mm3 Absolute Nucleated RBC 0.00 (0.00-0.00) K/mm3 Nucleated RBC % 0.0 (0-0.0) % PT 10.3 (9.50-12.1) Seconds INR 0.9 APTT 25.4 (23.9-30.70) Sec Sodium 143 (137-145) mmol/L Potassium 4.4 (3.4-5.0) mmol/L Chloride 111 H (98-107) mmol/L Carbon Dioxide 22 (22-30) mmol/L Anion Gap 10 (4-12) mmol/L BUN 41 H (7-17) mg/dL Creatinine 3.95 H (0.7-1.0) mg/dL Estim Creat Clear Calc Not Reportable Estimated GFR 12 L (59 - ) Glucose 176 H (65-110) mg/dL Calculated Osmolality 310 H (285-295) mOsm/kg Lactic Acid 1.2 (0.4-2.0) mmol/L Calcium 9.1 (8.4-10.2) mg/dL Total Bilirubin 0.7 (0.2-1.3) mg/dL AST 20 (14-36) U/L ALT 15 (6-35) U/L Alkaline Phosphatase 136 H (38-126) U/L Troponin I 0.035 H* (0.000-0.034) ng/mL C-Reactive Protein 2.4 H (<1.0) mg/dL Total Protein 7.8 (6.3-8.2) g/dL Albumin 4.2 (3.5-5.1) g/dL Lipase 98 (23-300) U/L Urine Color (Yellow) Urine Appearance (Clear) Urine pH (5.0-8.0) Ur Specific [place] (1.010-1.020) Urine Protein (Negative) Urine Glucose (UA) (Negative) Urine Ketones (Negative) Ur Blood (Man) (Negative) Urine Nitrate (Negative) Urine Bilirubin (Negative) Urine Urobilinogen (0.2-1.0) mg/dL Leukocyte Esterase Rfl (Negative) BRIAN/UL Urine RBC (0-2) /hpf Urine WBC (0-3) /hpf Urine Bacteria (None) /hpf 02/25/25 Range/Units 17:48 WBC (4.8-10.8) K/mm3 RBC (4.20-5.40) M/mm3 Hgb (12.0-15.0) g/dL Hct (35.0-49.0) % MCV (78.0-102.0) fL MCH (27.0-31.0) pg MCHC (32-36) g/dL RDW (11.6-14.4) % Plt Count (150-420) K/mm3 MPV (9.2-11.8) fl Immature Gran % (Auto) (0.0-0.0) % Neut % (Auto) (50.0-70.0) % Lymph % (Auto) (18.0-42.0) % [place] % (Auto) (2.0-11.0) % Eos % (Auto) (1.0-6.0) % Baso % (Auto) (0.0-1.0) % Lymph # (Auto) (1.10-4.50) K/mm3 [place] # (Auto) (0.10-0.90) K/mm3 Eos # (Auto) (0.02-0.50) K/mm3 Baso # (Auto) (0.00-0.10) K/mm3 Abs Immat Gran (auto) (0.00-0.00) K/mm3 Absolute Neuts (auto) (1.70-7.20) K/mm3 Absolute Nucleated RBC (0.00-0.00) K/mm3 Nucleated RBC % (0-0.0) % PT (9.50-12.1) Seconds INR APTT (23.9-30.70) Sec Sodium (137-145) mmol/L Potassium (3.4-5.0) mmol/L Chloride (98-107) mmol/L Carbon Dioxide (22-30) mmol/L Anion Gap (4-12) mmol/L BUN (7-17) mg/dL Creatinine (0.7-1.0) mg/dL Estim Creat Clear Calc Estimated GFR (59 - ) Glucose (65-110) mg/dL Calculated Osmolality (285-295) mOsm/kg Lactic Acid (0.4-2.0) mmol/L Calcium (8.4-10.2) mg/dL Total Bilirubin (0.2-1.3) mg/dL AST (14-36) U/L ALT (6-35) U/L Alkaline Phosphatase (38-126) U/L Troponin I (0.000-0.034) ng/mL C-Reactive Protein (<1.0) mg/dL Total Protein (6.3-8.2) g/dL Albumin (3.5-5.1) g/dL Lipase (23-300) U/L Urine Color Light yellow (Yellow) Urine Appearance Clear (Clear) Urine pH 7.0 (5.0-8.0) Ur Specific [place] 1.015 (1.010-1.020) Urine Protein 2+ H (Negative) Urine Glucose (UA) 1+ H (Negative) Urine Ketones Negative (Negative) Ur Blood (Man) Trace-intact H (Negative) Urine Nitrate Negative (Negative) Urine Bilirubin Negative (Negative) Urine Urobilinogen 0.2 (0.2-1.0) mg/dL Leukocyte Esterase Rfl Negative (Negative) BRIAN/UL Urine RBC 0-2 (0-2) /hpf Urine WBC 0-3 (0-3) /hpf Urine Bacteria Trace (None) /hpf Imaging Data Radiologist's impression: Impressions Abdomen/Pelvis CT 02/25/25 17:57 IMPRESSION: Mural thickening within the stomach and distal esophagus consistent with patient's history. Otherwise, no acute findings within the lower chest, abdomen or pelvis, as detailed above. ECG Data EKG #1: Attestation: I personally reviewed and interpreted this ECG as follows: ECG completion date: 02/25/25 Prior ECG tracings: available for review Interpretation: normal sinus rhythm at 82 beats per minute Left bundle branch block Baseline artifact, abnormal EKG, compared to EKG on February 16, 2025 no significant changes Discharge Plan Discharge Clinical Impression: Acute on chronic kidney failure, Elevated troponin Patient Disposition: Acute Care Hospital Condition: Stable Patient Language: Montserratian Prescriptions: No Action darbepoetin jeffrey-albumin 40 mcg/mL solution 40 mcg subcut MONTHLY PRN (Reason: low hgb) Rx Instructions: give if hgb is less than 10 isosorbide dinitrate 10 mg tablet 20 mg PO BID sertraline 50 mg tablet 100 mg PO DAILY amlodipine 10 mg tablet 10 mg PO DAILY atorvastatin [Lipitor] 80 mg tablet 80 mg PO HS gabapentin 100 mg capsule 100 mg PO BID sodium bicarbonate 650 mg tablet 1,300 mg PO BID Rx Instructions: 2 tabs BID bumetanide 1 mg tablet 1 mg PO DAILY Rx Instructions: 1/2 tab daily hydralazine 10 mg tablet 10 mg PO TID famotidine 40 mg tablet 40 mg PO Q12H metoclopramide HCl 5 mg tablet 5 mg PO Q8H PRN (Reason: nausea and vomiting) pantoprazole 40 mg Tablet,Delayed Release (Dr/Ec) 40 mg PO Q12HR Qty: 60 0RF patiromer calcium sorbitex 8.4 gram powder in packet 8.4 g PO .ever aspirin [Adult Low Dose Aspirin] 81 mg tablet,delayed release (DR/EC) 81 mg PO DAILY cholecalciferol (vitamin D3) [Vitamin D3] 25 mcg (1,000 unit) capsule 25 mcg PO DAILY ipratropium-albuterol 0.5 mg-3 mg(2.5 mg base)/3 mL Solution For Nebulization 3 ml inhalation Q6HRT PRN (Reason: Shortness Of Breath Or Wheezing) Qty: 30 0RF polyethylene glycol 3350 [Miralax] 17 gram Powder In Packet 17 g PO NOON Qty: 14 0RF linezolid 600 mg Tablet 600 mg PO Q12HR Qty: 10 0RF doxycycline hyclate 100 mg Tablet 100 mg PO Q12HR Qty: 10 0RF amoxicillin-pot clavulanate [Augmentin] 500-125 mg Tablet 1 tablet PO Q12HR Qty: 10 0RF Follow-up/Referrals: UNKNOWN,DOCTOR [Primary Care Provider] -
--- NOTE | 2025-02-25 16:23 | ECG_ITS ---
Test Date: 2025-02-25 16:40:12 Measurements Intervals [place] Rate: 82 P: 66 IA: 195 QRS: -4 QRSD: 145 T: 114 QT: 417 QTc: 489 Interpretive Statements SINUS RHYTHM LEFT BUNDLE BRANCH BLOCK [120+ ms QRS DURATION, 80+ ms Q/S IN V1/V2, 85+ ms R IN I/aVL/V5/V6] Compared to ECG 02/16/2025 16:48:01 No significant changes Electronically Signed On 02-26-2025 11:41:53 CDT by Jatinder Springer M.D.
[2025-02-25 16:54] LABS: Hematocrit 34.6 % (35.0-49.0); Hemoglobin 10.9 g/dL (12.0-15.0); Immature Granulocyte Percent A 0.5 % (0.0-0.0); Lymphocytes Absolute Auto 1.47 K/mm3 (1.10-4.50); Mean Corpuscular HGB Conc 31.5 g/dL (32-36); Mean Corpuscular Hemoglobin 27.8 pg (27.0-31.0); Mean Corpuscular Volume 88.3 fL (78.0-102.0); Nucleated Red Blood Cells Absolute Auto 0.00 K/mm3 (0.00-0.00); Nucleated Red Blood Cells Perc 0.0 % (0-0.0); Platelet Count Result 294 K/mm3 (150-420); Red Blood Count 3.92 M/mm3 (4.20-5.40); White Blood Count 7.4 K/mm3 (4.8-10.8)
--- OUTSIDE RECORDS SUMMARY | 2025-02-25 16:56 | XMS_ITS | Encounter Summary ---
Author Organization [facility] Address [address] [place] [address] Care Team Providers Care Data Security Consultant Name Role Phone Destinee Rodriguez NP Primary Care Provider [phone] Encounter Details Date Type Department Care Team (Late st Contact Info) Description 09/17/2023 Hospital Follow-up Call [facility] Cardiovascular Care Unit [address] [place] [address] Xiomara Schmitt RN Social History Tobacco Use Types Packs/Day Years Used Date Smoking Tobacco: Never Smokeless Tobacco: Never [facility] Utilities Answer Date Recorded In the [...] Sex Assigned at Female 10/22/2024 9:59 PM INSPECTOR WIRE PRODUCTS Legal Sex Female 9:54 PM INSPECTOR WIRE PRODUCTS Gender Identity Not on file Sexual Orientation [...] Assessment Author Status No 09/08/2023 3:58 AM INSPECTOR WIRE PRODUCTS Ever Yancey RN Active documented as of this encounter Mental Status * Because of a physical, mental, or emotional condition, do you have serious difficulty concentrating, remembering, or making decisions? Answer Entry Date Author Status No 09/08/2023 3:58 AM INSPECTOR WIRE PRODUCTS Ever Yancey RN Active documented in this [...] Rule Out 10/22/2024 10/22/2024 10/22/2024 10:40 PM INSPECTOR WIRE PRODUCTS Respiratory Rule Out 10/22/2024 10/22/2024 025 10:41 PM INSPECTOR WIRE PRODUCTS documented as of this encounter Care Teams Data Security Consultant Relationship Specialty Start Date End Date Destinee Rodriguez, REKHA PCP - General NURSE PRACTITIONER 09/08/23 documented as of this encounter
--- OUTSIDE RECORDS SUMMARY | 2025-02-25 16:56 | XMS_ITS | Encounter Summary ---
Author Organization [facility] Address [address] [place] [id number] Care Team Providers Care Vp Sales Name Role Phone None, Provider MD Primary Care Provider Jyothi treviño Non-Staff, Provider Primary Care Provider Luis Manuel Osborne MD Primary Care Provider [phone] Destinee Rodriguez NP Primary Care Provider [phone] Reason for Referral * Surgical (Routine) - Closed Specialty Diagnoses / Procedures Referred By Ashlie dunbar Referred To Contact Diagnoses Osteomyelitis Procedures Case request operating room: BONE BIOPSY-FOOT Jaxon August MD [facility] [address] [place] [address] Phone: tel: fax: [facility] [place] [address] Phone: tel: Referral ID Status Reason Start Date Expiration Date Visits Re quested Visits Authorized [id number] Closed 03/09/2022 04/06/2023 1 1 Encounter Details Date Type Department Care Team (Late st Contact Info) Description 03/06/2022 Prep for Procedure [facility], [address] [place], [place] [id number] Jaxon August MD [facility]. [address] [place] [address] Social History Tobacco Use Types Packs/Day Years Used Date Smoking Tobacco: Never Smokeless Tobacco: Never Comments Unknown Sex and Gender Information Value Date Recorded Sex Assigned at Female 10/22/2024 9:59 PM [employer] Legal Sex Female 9:54 PM [employer] Gender Identity Not on file Sexual Orientation [...] AM CDT Gómez Martin RN Active * [place] Suicide Severity Rating Scale (Screener/Recent Self-Report) Question [...] Rule Out 10/22/2024 10/22/2024 10/22/2024 10:40 PM [employer] Respiratory Rule Out 10/22/2024 10/22/2024 025 10:41 PM [employer] documented as of this encounter Care Teams Vp Sales Relationship Specialty Start Date End Date None, Provider, PCP - General 08/20/21 06/01/22 Non-Staff, Provider PCP - General UNKNOWN PHYSICIAN SPECIALTY 06/02/22 05/07/23 Luis Manuel Mccall MD [facility] [place] [address] PCP - General FAMILY PRACTICE 05/08/23 09/07/23 Destinee Rodriguez [place] [address] PCP - General NURSE PRACTITIONER 09/08/23 documented as of this encounter
--- OUTSIDE RECORDS SUMMARY | 2025-02-25 16:56 | XMS_ITS | Clinical Summary ---
Author Organization [facility] Address [address] [place] [id number] Care Team Providers Care Grading Supervisor Name Role Phone Destinee Rodriguez NP Primary Care Provider [phone] Allergies No known active allergies Medications amLODIPine [...] heart failure with left ventricular diastolic dysfunction ([facility] HHS/HCC),Hypoxic respiratory failure ([facility] HHS/HCC) 1 Device by Nasal route continuous. Nasal Cannula. 2L continuous oxygen. Portable tank and stationary concentrator 1 Device 4 Active OXYGEN CONCENTRATOR SUPPLY, DME,Indications: Congestive heart failure with left ventricular diastolic dysfunction (CMS/HCC HHS/HCC),Hypoxic respiratory failure (CMS/[facility] HHS/HCC) 1 Device by Nasal route continuous. [...] failure wit h left ventricular diastolic dysfunction ([facility] HHS/HCC) 09/13/2023 Hypoxic respiratory failure ([facility] HHS/HCC) Fracture of femoral neck, right ([facility] ) 05/04/2023 Osteomyelitis ([facility]) 02/26/2022 Immunizations Immunization Administration Dates Next Due [...] drink = 0.6 oz pur e alcohol) [facility] Utilities Answer Date Recorded In the past 12 months has e CO Everywhere, gas, oil, or water [employer] threatened to shut off services in your [...] place to sleep or slept in a prison (including now)? No 09/08/2023 Housing Stability Vital [...] were you homeless or living in a prison (including now)? Patient declined 10/23/2024 Comments No Sex and Gender Information Value Date Recorded Sex Assigned at Female 10/22/2024 9:59 PM [employer] Legal Sex Female 9:54 PM [employer] Gender Identity Not on file Sexual Orientation Not on file Last Filed Vital Signs Vital Sign Reading Time Taken Comments Blood Pressure 107/54 10/24/2024 8:00 AM [employer] Pulse 77 10/24/2024 8:00 AM [employer] Temperature 36 C (96.8 F) 10/24/2024 8:00 AM [employer] Respiratory Rate 16 10/24/2024 8:00 AM [employer] Oxygen Saturation 100% 10/24/2024 8:00 AM [employer] Inhaled Oxygen Concentration - - Weight 49.4 kg (109 lb) 10/23/2024 12:00 PM [employer] Height 149.9 cm (4' 11) 10/23/2024 12:00 PM [employer] Body Mass Index 22.02 10/23/2024 12:00 PM [employer] Plan of Treatment Health Maintenance Due Date [...] Colón, BERNIE Medical Devices Implanted Type Area Hat Lacer Device Identifier Shelf Expiration Date Model / Serial / Lot Cement Bone Biomet 40gm - [id number] Implanted:Qty: 2 on 05/05/2023 by Idris Almanza MD at [facility] Cement Implant Right: Hip [employer] 08/19/2025 [id number] / / Plug Cement Kvng Gabriel Medullary 20mm - [id number] Implanted:Qty: 1 on 05/05/2023 by Idris Almanza MD at [facility] Cement Implant Right: Hip [employer] 01/11/2027 [id number] / / Shell Kvng Bipolar 41mm Od - [id number] Implanted:Qty: 1 on 05/05/2023 by Idris Almanza MD at [facility] Hip Components Right: Hip [employer] 12/17/2025 [id number] / / Liner Kvng Bipolar Hip 22 Id 40/41mm - [id number] Implanted:Qty: 1 on 05/05/2023 by Idris Almanza MD at [facility] Hip Components Right: Hip [employer] 08/19/2025 [id number] / / [id number] Implanted:Qty: 1 on 05/05/2023 by Idris Almanza MD at [facility] Right: Hip [employer] 08/25/2027 [id number] / / Femoral Head Implanted:Qty: 1 on 05/05/2023 by Idris Almanza MD at [facility] Right: Hip [employer] 09/15/2031 [id number] / / Explanted Type Area Hat Lacer Device Identifier Shelf Expiration Date Model / Serial / Lot System Bone Cement 1 2 Mix - [id number] Explanted:Qty: 1 on 05/05/2023 by Idris Almanza MD at [facility] Cement Implant Right: Hip [employer] 12/21/2025 [id number] / / Femoral Cement Preparation Kit Explanted:Qty: 1 on 05/05/2023 by Idris Almanza MD at [facility] Right: Hip [employer] 11/25/2027 [id number] / / Insurance MEDICARE PART A MEDICAID * Guarantor: Helga Deanna Stone Account Type Relation to Patient Date of Phone Billing Address [employer] 1965 [address] [place] [address] Advance Directives Documents on File Type Date Recorded Patient Mental Health Practitioner Expl anation Advance Directives and Livin g [...] 1:37 PM 03/17/2022 7:40 PM Care Teams Grading Supervisor Relationship Specialty Start Date End Date Destinee Rodriguez NP PCP - General NURSE PRACTITIONER 09/08/23
[2025-02-25] MEDS: ONDANSETRON INJ 4 MG/2 ML VIAL IV PUSH (17:00)
[2025-02-25] MEDS: SODIUM CHLORIDE 0.9% IV 1,000 ML 999 ML IV CONT (17:00)
[2025-02-25 17:07] LABS: Alanine Aminotransferase 15 U/L (6-35); Albumin Level 4.2 g/dL (3.5-5.1); Alkaline Phosphatase 136 U/L (38-126); Anion Gap 10 mmol/L (4-12); Aspartate Amino Transferase 20 U/L (14-36); Bilirubin,Total 0.7 mg/dL (0.2-1.3); Blood Urea Nitrogen 41 mg/dL (7-17); Calcium 9.1 mg/dL (8.4-10.2); Carbon Dioxide 22 mmol/L (22-30); Chloride 111 mmol/L (98-107); Estimated Glomerular Filt Rate 12; Glucose 176 mg/dL (65-110); Lipase 98 U/L (23-300); Osmolality Calculated 310 mOsm/kg (285-295); Potassium 4.4 mmol/L (3.4-5.0); Sodium 143 mmol/L (137-145); Total Protein 7.8 g/dL (6.3-8.2)
[2025-02-25 17:09] LABS: INR 0.9; Partial Thromboplastin Time 25.4 Sec (23.9-30.70); Prothrombin Time 10.3 Seconds (9.50-12.1)
[2025-02-25 17:15] LABS: CRP 2.4 mg/dL (<1.0)
[2025-02-25 17:21] LABS: Troponin I 0.035 ng/mL (0.000-0.034)
[2025-02-25 17:56] LABS: Add Urine Microscopic? YES; Appearance Urine Clear (Clear); Glucose Urine UA 1+ (Negative); Leukocyte Esterase Ur Negative LEU/UL (Negative); Nitrate Urine Negative (Negative); Specific Grav Ur 1.015 (1.010-1.020)
--- NOTE | 2025-02-25 19:39 | PC.NURSE ---
ERP aware of pt's vitals. No new orders at this time.
--- NOTE | 2025-02-25 19:43 | PC.NURSE ---
Addendum entered by Gabrielle Reyes RN 02/25/25 19:46: Hu's phone number [phone] Original Note: Called Hu, pt's , to let him know that pt is being transferred to [facility], Room 731
[2025-02-25 20:24] LABS: Troponin I 0.040 ng/mL (0.000-0.034)
--- NOTE | 2025-02-25 20:49 | PC.NURSE ---
[address] Called [facility] to let him know that pt has not yet left for transfer.
--- NOTE | 2025-03-01 12:33 | PC.NURSE ---
preliminary blood cultures x2 reviewed. no growth to date
--- NOTE | 2025-03-02 12:14 | PC.NURSE ---
Preliminary blood culture report; no growth in 48 hours.
--- NOTE | 2025-03-04 12:59 | PC.NURSE ---
final blood cultures x2 reviewed. no growth in 5 days. no change in plan of care
== END 2025-02-25 21:00 | disposition short-term general hospital (02) ==
PROVIDERS: Emergency Provider Emergency Medicine
DX: N17.9 Acute kidney failure, unspecified (principal); E11.22 Type 2 diabetes mellitus with diabetic chronic kidney disease; I13.0 Hypertensive heart and chronic kidney disease with heart failure and stage 1 through stage 4 chronic kidney disease, or unspecified chronic kidney disease; N18.4 Chronic kidney disease, stage 4 (severe); I50.9 Heart failure, unspecified; R79.89 Other specified abnormal findings of blood chemistry
CPT/HCPCS: 36415; 71045; 74176; 80053; 81001; 83605; 83690; 84484; 85025; 85610; 85730; 86140; 93005; 96361; 96374; 99285; J2405; J7030

== ENCOUNTER 2025-03-05 05:22 | Emergency (ER) | payer OTHER, SELFPAY ==
--- NOTE | ~2025-03-05 | XR_ITS ---
Portable chest x-ray Comparison: 02/25/2025 Clinical History: Weakness Findings: Lungs are clear, without focal consolidation or pleural effusion. Cardiomediastinal silho uette is stable. Bones and soft tissues are unremarkable. Impression: Clear lungs. Reviewed, dictated and finalized at location . Impression: Clear lungs.
[2025-03-05 05:22] VITALS: BP 169/83; PULSE 81; RESP 18; TEMP 36.8; O2SAT 98
--- OUTSIDE RECORDS SUMMARY | 2025-03-05 05:24 | XMS_ITS | Clinical Summary ---
Author Organization [facility] Address [address] [place] [id number] Care Team Providers Care Buckle Inspector Name Role Phone Destinee Rodriguez SUPERVISOR EDGING Primary Care Provider [phone] Allergies No known active allergies Medications amLODIPine [...] ventricular diastolic dysfunction (CMS/HCC HHS/HCC),Hypoxic respiratory failure (CMS/HCC HHS/HCC) 1 Device by Nasal route continuous. Nasal Cannula. 2L continuous oxygen. Portable tank and stationary concentrator 1 Device Active OXYGEN CONCENTRATOR SUPPLY, DME,Indications: Congestive heart failure with left ventricular diastolic dysfunction (CMS/HCC HHS/HCC),Hypoxic respiratory failure (CMS/HCC HHS/HCC) 1 Device by Nasal route continuous. [...] Cap Take 1 tablet by mouth daily. Active hydrOXYzine (ATARAX) 10 MG tablet Take 1 tablet (10 mg total) by mouth 2 (two) times daily as needed for Anxiety. Active Active Problems Problem Noted Date Diagnosed Date Acute on chronic kidney failure 02/25/2025 Pneumonia 10/23/2024 Acute renal failure (ARF) 08/14/2024 Congestive heart failure wit h left ventricular diastolic dysfunction (CMS/HCC HHS/HCC) 09/13/2023 Hypoxic respiratory failure (CMS/HCC HHS/HCC) Fracture of femoral neck, right ([facility] ) 05/04/2023 Osteomyelitis ([facility]) 02/26/2022 Encounters Date Type Department Care Team Description 02/26/2025 Travel 02/25/2025 11:40 PM CDT - 02/27/2025 1:45 PM CDT Hospital Encounter [facility] [address] [place] [address] Sunny Tran MD Shackour, Salim, MD Mahmoud, Anas, MD Discharge Disposition: Home or Self Care (Routine Discharge) from Last 3 Months Immunizations Immunization Administration [...] drink = 0.6 oz pur e alcohol) [facility] Utilities Answer Date Recorded In the past 12 months has e [employer] Screening, gas, oil, or water [employer] threatened to shut off services in your home? No 02/26/2025 Humiliation, Afraid, Rape, and Kick questionnair e Answer Date Recorded Within the last year, have y ou been afraid of your partner or ex-partner? No 02/25/2025 Within the last year, have y ou been humiliated or emotionally abused in other ways by your partner or ex-partner? No Within the last year, have y ou been kicked, hit, slapped, or otherwise physically hurt by your partner or ex-partner? No 02/25/2025 Within the last year, have y ou been raped or forced to have any kind of sexual activity by your partner or ex-partner? No 02/25/2025 Overall Financial Resource Strain (CARDIA) Answe r Date Recorded How hard is it for you to pa y for the very basics like food, housing, medical care, and heating? Not hard at all 02/25/2025 Hunger Vital Sign Answer Date Recorded Within the past 12 months, y ou worried that your food would run out before you got the money to buy more. Never true 02/26/20 25 Within the past 12 months, t he food you bought just didn't last and you didn't have money to get more. Never true 02/25/2025 PRAPARE - Transportation Answer Date Re corded In the past 12 months, has l ack of transportation kept you from medical appointments or from getting medications? No 04/2025 In the past 12 months, has l ack of transportation kept you from meetings, work, or from getting things needed for daily living? No 02/25/2025 Housing Stability Vital Sign Answer Jose e [...] in a long-term (including now)? No 09/08/2023 Housing Stability Vital Sign Answer Jose e Recorded In the last 12 months, was t here a time when you were not able to pay the mortgage or rent on time? No 02/25/2025 In the past 12 months, how m any times have you moved where you were living? 0 02/25/2025 At any time in the past 12 m [facility], were you homeless or living in a long-term (including now)? No 02/25/2025 Comments No Sex and Gender Information Value Date Recorded Sex Assigned at Female 10/22/2024 9:59 PM MANAGER GRAPHIC Legal Sex Female 9:54 PM MANAGER GRAPHIC Gender Identity Not on file Sexual Orientation Not on file Last Filed Vital Signs Vital Sign Reading Time Taken Comments Blood Pressure 173/62 02/27/2025 9:12 AM CDT Pulse 71 02/27/2025 9:12 AM CDT Temperature 36.9 C (98.5 F) 02/27/2025 9:12 AM CDT Respiratory Rate 20 02/27/2025 9:12 AM CDT Oxygen Saturation 94% 02/27/2025 9:12 AM CDT Inhaled Oxygen Concentration - - Weight 50.1 kg (110 lb 7.2 oz) 02/26/2025 5:00 A M CDT Height 152.4 cm (5') 02/25/2025 11:45 PM CDT Body Mass Index 21.57 02/25/2025 11:45 PM CDT Plan of Treatment Health Maintenance Due Date [...] discharge planning Lifestyle No Jovita Colón RN Medical Devices Implanted Type Area Plant [employer] Machinery Valuer Device Identifier Shelf Expiration Date Model / Serial / Lot Cement Bone Biomet 40gm - [id number] Implanted:Qty: 2 on 05/05/2023 by Idris Almanza MD at [facility] Cement Implant Right: Hip [employer] 08/19/2025 [id number] / / Plug Cement Kvng Gabriel Medullary 20mm - [id number] Implanted:Qty: 1 on 05/05/2023 by Idris Almanza MD at [facility] Cement Implant Right: Hip [employer] 01/11/2027 [id number] / / Shell Kvng Bipolar 41mm Od - [id number] Implanted:Qty: 1 on 05/05/2023 by Idris Almanza MD at [facility] Hip Components Right: Hip [employer] 12/17/2025 [id number] / / Liner Kvng Bipolar Hip 22 Id 40/41mm - [id number] Implanted:Qty: 1 on 05/05/2023 by Idris Almanza MD at [facility] Hip Components Right: Hip [employer] 08/19/2025 [id number] / / [id number] Implanted:Qty: 1 on 05/05/2023 by Idris Almanza MD at [facility] Right: Hip [employer] 08/25/2027 [id number] / / Femoral Head Implanted:Qty: 1 on 05/05/2023 by Idris Almanza MD at [facility] Right: Hip [employer] 09/15/2031 [id number] / / Explanted Type Area Plant And Machinery Valuer Device Identifier Shelf Expiration Date Model / Serial / Lot System Bone Cement 1 2 Mix - [id number] Explanted:Qty: 1 on 05/05/2023 by Idris Almanza MD at [facility] Cement Implant Right: Hip [employer] 12/21/2025 [id number] / / Femoral Cement Preparation Kit Explanted:Qty: 1 on 05/05/2023 by Idris Almanza MD at [facility] Right: Hip [employer] 11/25/2027 [id number] / / Procedures Procedure Name Priority Date/Time Associated Diagnosis Comments POCT GLUCOSE - DOCKED DEVICE Routine 02/27/2025 12:47 PM CDT POCT GLUCOSE - DOCKED DEVICE Routine 02/27/2025 6:07 AM CDT MAGNESIUM Routine 02/27/2025 3:21 AM CDT COMPREHENSIVE METABOLIC PANEL Routine 02/27/2025 3:21 AM CDT CBC W/DIFF AUTOMATED Routine 02/27/2025 3:21 AM CDT POCT GLUCOSE - DOCKED DEVICE Routine 02/26/2025 8:42 PM CDT POCT GLUCOSE - DOCKED DEVICE Routine 02/26/2025 5:04 PM CDT TROPONIN, QUANT TIMED 02/26/2025 1:37 PM CDT POCT GLUCOSE - DOCKED DEVICE Routine 02/26/2025 11:36 AM CDT US RETROPERITONEAL COMP Today 02/26/2025 10:35 AM CDT TROPONIN, QUANT TIMED 02/26/2025 8:31 AM CDT ECG 12-LEAD Routine 02/26/2025 6:31 AM CDT XR CHEST PORTABLE Today 02/26/2025 6:1 9 AM CDT GI PANEL PCR - STOOL Nurse Collected Priority 02/26/2025 4:52 AM CDT TROPONIN, QUANT TIMED 02/26/2025 3:46 AM CDT URINE BACTERIA CULTURE Nurse Collected Priority 02/26/2025 12:32 AM CDT CREATININE URINE RANDOM Nurse Collected Priority 02/26/2025 12:32 AM CDT SODIUM URINE RANDOM Nurse Collected Priority 02/26/2025 12:32 AM CDT HC URINALYSIS AUTO W/MICRO Nurse Collected Priority 02/26/2025 12:32 AM CDT LACTIC ACID STAT 02/26/2025 12:30 AM CDT PRO-BRAIN NATRIURETIC PEPTIDE STAT 02/26/2025 12:30 AM CDT PHOSPHORUS, INORGANIC PHOSPHATE STAT 02/26/2025 12:30 AM CDT MAGNESIUM STAT 02/26/2025 12:30 AM CDT COMPREHENSIVE METABOLIC PANEL STAT 02/26/2025 12:30 AM CDT CBC W/DIFF AUTOMATED STAT 02/26/2025 12:30 AM CDT CULTURE, BACTERIA, BLOOD STAT 02/26/2025 12:29 AM CDT from Last 3 Months Results * (ABNORMAL) POCT glucose (02/27/2025 12:47 PM CDT) Only the most recent of5 resultswithin the time period is included. GLUCOSE POC 146(H) 70 - 109 02/27/2025 8:55 PM CDT [facility] 02/27/2025 12:4 7 PM CDT us Linh Miramontes MD POCT ORDERABLES - DEVICE Final R esult [facility] [address] [place] [address], [id number] * (ABNORMAL) COMPREHENSIVE METABOLIC PANEL (02/27/2025 3:21 AM CDT) Only the most recent of2 resultswithin the time period is included. SODIUM S/P/B 139 136 - 145 MMOL/L 02/27/2025 5:04 AM CDT [facility] POTASSIUM S/P/B 4.2 3.5 - 5.1 MMOL/L 02/27/2025 5:04 AM CDT [facility] CHLORIDE S/P/B 113 97 - 115 MMOL/L 02/27/2025 5:04 AM CDT [facility] CO2 20.3(L) 21.0 - 32.0 MMOL/L 02/27/2025 5:04 AM [facility] GLUCOSE 81 74 - 106 MG/DL 02/27/2025 5:04 AM [facility] BUN 37(H) 7 - 18 MG/DL 02/27/2025 5:04 AM [facility] CREATININE S/P/B 3.42(H) 0.55 - 1.02 MG/DL 02/27/2025 5:04 AM [facility] CALCIUM S/P/B 7.7(L) 8.5 - 10.1 MG/DL 02/27/2025 5:04 AM [facility] BILIRUBIN TOTAL S/P/B 0.3 0.2 - 1.0 MG/DL 02/27/2025 5:04 AM [facility] ALKALINE PHOSPHATASE S/P/B 98 50 - 130 U/L 02/27/2025 5:04 AM [facility] AST 10(L) 15 - 37 U/L 02/27/2025 5:04 AM [facility] ALT 9(L) 13 - 56 U/L 02/27/2025 5:04 AM [facility] TOTAL PROTEIN S/P/B 5.7(L) 6.4 - 8.2 G/DL 02/27/2025 5:04 AM [facility] ALBUMIN S/P/B 2.3(L) 3.4 - 5.0 G/DL 02/27/2025 5:04 AM [facility] ANION GAP 5.7 2.0 - 10.0 MMOL/L 02/27/2025 5:04 AM [facility] OSMOLALITY (CALC) 296 MOSM/KG 025 5:04 AM [facility] Comment:REFERENCE RANGE NOT ESTABLISHED GFR ESTIMATE 15(L) >90 ML/MIN/1. 73 M2 02/27/2025 5:04 AM CDT [facility] GFR NOTES GFR REFERENCE S: 02/27/2025 5:04 AM CDT [facility] Comment: THE ESTIMATED GFR IS CALCULATED [...] ml/min/1.73 m2 G5,KIDNEY FAILURE: <15 ml/min/1.73 m2 02/27/2025 3:21 AM CDT Jax Hendrickson MD LABORATORY Final Result [facility] [address] [place] [address], [id number] * (ABNORMAL) CBC W/DIFF AUTOMATED (02/27/2025 3:21 AM CDT) Only the most recent of2 resultswithin the time period is included. WBC 8.61 4.00 - 10.80 x10'3/uL 02/27/2025 4:32 AM CDT [facility] RBC 2.79(L) 4.10 - 5.40 x10'6/uL 02/27/2025 4:32 AM CDT [facility] HGB 7.8(L) 12.0 - 16.0 G/DL 02/27/2025 4:32 AM CDT [facility] HCT 24.5(L) 36.0 - 47.0 % 02/27/2025 4:32 AM CDT [facility] MCV 87.8 78.0 - 100.0 FL 02/27/2025 4:32 AM CDT [facility] MCH 28.0 27.0 - 31.0 PG 02/27/2025 4:32 AM CDT [facility] MCHC 31.8(L) 33.0 - 36.0 G/DL 02/27/2025 4:32 AM CDT [facility] RDW 13.9 11.5 - 14.5 % 02/27/2025 4:32 AM CDT [facility] PLT 257 150 - 350 x10'3/uL 02/27/2025 4:32 AM CDT [facility] MPV 10.8(H) 7.4 - 10.4 FL 02/27/2025 4:32 AM CDT [facility] DIFFERENTIAL TYPE AUTOMATED DIFFERENTIAL 02/27/2025 4:32 AM CDT [facility] SEG NEUTROPHILS 37.1 % 4:32 AM CDT [facility] LYMPHOCYTES 53.5 % 02/27/2025 4:32 AM CDT [facility] MONOCYTES 6.5 % 02/27/2025 4:32 AM CDT [facility] EOSINOPHILS 2.0 % 02/27/2025 4:32 AM CDT [facility] BASOPHILS 0.6 % 02/27/2025 4:32 AM CDT [facility] IMMATURE GRANS % 0.3 % 02/28/20 4:32 AM CDT [facility] ABS. NEUTROPHILS 3.19 1.60 - 8.30 x10'3/uL 02/27/2025 4:32 AM CDT [facility] ABS. LYMPHOCYTES 4.61 0.80 - 4.70 x10'3/uL 02/27/2025 4:32 AM CDT [facility] ABS. MONOCYTES 0.56 0.00 - 1.50 x10'3/uL 02/27/2025 4:32 AM CDT [facility] ABS. EOSINOPHILS 0.17 0.00 - 0.40 x10'3/uL 02/27/2025 4:32 AM CDT [facility] ABS. BASOPHILS 0.05 0.00 - 0.20 x10'3/uL 02/27/2025 4:32 AM CDT [facility] ABS. IMMATURE GRANULOCYTES 0.03 0.00 - 0.03 x10'3/uL 02/27/2025 4:32 AM CDT [facility] ABS. NUCLEATED RBC'S 0.00 0.00 - 0.01 x10'3/uL 02/27/2025 4:32 AM CDT [facility] NRBC % 0.0 % 02/27/2025 4:32 AM CDT [facility] 02/27/2025 3:21 AM CDT us Jax Hendrickson MD LABORATORY Final Result Performing Organization Address City/[facility]/ZIP Co de Phone Number [facility] [address] [place] [address], [id number] * MAGNESIUM (02/27/2025 3:21 AM CDT) Only the most recent of2 resultswithin the time period is included. [facility] MAGNESIUM 1.7 1.6 - 2.6 MG/DL 02/27/2025 5:04 AM CDT [facility] 02/27/2025 3:21 AM CDT us Jax Hendrickson MD LABORATORY Final Result Performing Organization Address [facility]/ZIP Co de Phone Number [facility] [address] [place] [address], [place] [phone] * TROPONIN, QUANT (02/26/2025 1:37 PM CDT) Only the most recent of3 resultswithin the time period is included. [facility] TROPONIN I HIGH SENSITIVITY 39 0 - 53 ng/L 02/26/2025 2:17 PM CDT [facility] 02/26/2025 1:37 PM CDT Jax Hendrickson MD LABORATORY Final Result [facility] [address] [place] [address], [id number] * US RETROPERITONEAL COMP (02/26/2025 10:35 AM CDT) Anatomical Region Laterality Modality Abdomen Ultrasound 02/27/2025 12:4 1 AM CDT Impressions 02/27/2025 12:43 AM CDT IMPRESSION: 1. No hydronephrosis or acute renal abnormality visualized. 2. Nonvisualization of the left urinary jet. Referred By: PROVIDER NON-STAFF Interpreted By: Brooks Man MD, 02/27/2025 12:41 AM Narrative 02/27/2025 12:43 AM CDT [address] [address] EXAMINATION: Ultrasound of the kidneys and urinary bladder. Indication: Acute kidney injury. Comparison: CT abdomen pelvis without contrast on 10/23/2024. Renal ultrasound on 05/21/2023 Technique: Sonographic shore scale, color Doppler, and power Doppler images of the kidneys and urinary bladder. Findings: The right kidney measures approximately 9.5 cm from pole to pole. The left kidney measures approximately 8.5 cm from pole to pole. There is normal corticomedullary differentiation. There is no evidence of focal parenchymal atrophy or scarring. There is no evidence of renal mass or cystic lesions. There is no hydronephrosis or pelviectasis in either kidney. There is no evidence of circumferential or focal bladder wall thickening. The prevoid urinary bladder volume is approximately 107.4 mL. The postvoid urinary bladder volume was not evaluated. The left urinary jet is visualized. No right urinary jet is seen. Procedure Note Brooks Man MD - 02/27/2025 [facility] [address] [place], [place] [address] EXAMINATION: Ultrasound of the kidneys and urinary bladder. Indication: Acute kidney injury. Comparison: CT abdomen pelvis without contrast on 10/23/2024. Renalultrasound on 05/21/2023 Technique: Sonographic shore scale, color Doppler, and power Doppler imagesof the kidneys and urinary bladder. Findings: The right kidney measures approximately 9.5 cm from pole to pole. The leftkidney measures approximately 8.5 cm from pole to pole. There is normalcorticomedullary differentiation. There is no evidence of focalparenchymal atrophy or scarring. There is no evidence of renal mass orcystic lesions. There is no hydronephrosis or pelviectasis in eitherkidney. There is no evidence of circumferential or focal bladder wall thickening.The prevoid urinary bladder volume is approximately 107.4 mL. The postvoidurinary bladder volume was not evaluated. The left urinary jet isvisualized. No right urinary jet is seen. IMPRESSION: 1. No hydronephrosis or acute renal abnormality visualized. 2. Nonvisualization of the left urinary jet. Referred By: PROVIDER NON-STAFF Interpreted By: Brooks Man MD, 02/27/2025 12:41 AM us Jax Hendrickson MD ULTRASOUND Final Result * ECG 12 lead (02/26/2025 6:31 AM CDT) 02/26/2025 6:31 AM CDT Narrative [facility] - 02/26/2025 1:45 PM CDT [address] [address] Test Date: 2025-02-26 Pat Name: DEANNA MADRID Department: 1 Room: 73A Gender: Female Digital Operations Analyst: Josue : 1965 Requested By: JAX HENDRICKSON Order Number: [id number] Nicki MD: Ilan Velasquez Measurements Intervals [place] Rate: 73 P: 31 OR: 183 QRS: -30 QRSD: 145 T: 131 QT: 444 QTc: 492 Interpretive Statements SINUS RHYTHM LEFT BUNDLE BRANCH BLOCK Procedure Note Ilan Velasquez MD - 02/26/2025 [facility] [address] [place] [address] Test Date: 2025-02-26 Pat Name: DEANNA MADRID Department: 1 Room: [facility] Gender: Female Digital Operations Analyst: Josue : 1965 Requested By: JAX HENDRICKSON Order Number: [id number] Reading MD: Ilan Velasquez Measurements Intervals [place] Rate: 73 P: 31 OR: 183 QRS: -30 QRSD: 145 T: 131 QT: 444 QTc: 492 Interpretive Statements SINUS RHYTHM LEFT BUNDLE BRANCH BLOCK us Jax Hendrickson MD ECG ORDERABLES Final Result [facility] * XR CHEST PORTABLE (02/26/2025 6:19 AM CDT) Anatomical Region Laterality Modality Chest Radiographic Dee ging 02/26/2025 6:49 AM CDT Impressions 02/26/2025 6:53 AM CDT IMPRESSION: 1. No radiographic evidence is seen to suggest acute cardiopulmonary abnormality; however it should be noted that the right middle lobe tree-in-bud opacities seen on CT 10/23/2024 were not demonstrated on chest radiograph 10/22/2024 and if imaging documentation of resolution of these tree-in-bud opacities is desired, CT should be considered. 2. Carotid atherosclerotic calcifications. Referred By: PROVIDER NON-STAFF Interpreted By: Freddy Ortiz DO, 02/26/2025 6:49 AM Narrative 02/26/2025 6:53 AM CDT [facility] [address] [place], [place] [address] Examination: XR CHEST PORTABLE Exam time: 02/26/2025 6:09 AM Clinical history: Follow-up recent pneumonia. Comparison: Chest radiographs 10/22/2024, 08/15/2024, 05/15/2023, 05/04/2023 03/16/2022, and 2022. Technique: Semiupright AP portable radiograph of the chest. Findings: The patient is rotated to the right. The cardiomediastinal silhouette is within normal limits in size when taking into account patient positioning and technique. Pulmonary vasculature is appropriately distributed. The lungs are clear of active opacities. No sizable pleural effusion or pneumothorax is seen. Degenerative arthritis affects the visualized lower cervical spine. There are carotid atherosclerotic calcifications. Severe osteoarthritis affects the right glenohumeral joint with associated deformity. Procedure Note Freddy Ortiz, - 02/26/2025 [facility] [address] [place], [place] [address] Examination: XR CHEST PORTABLE Exam time: 02/26/2025 6:09 AM Clinical history: Follow-up recent pneumonia. Comparison: Chest radiographs 10/22/2024, 08/15/2024, 05/15/2023, /, and 2022. Technique: Semiupright AP portable radiograph of the chest. Findings: The patient is rotated to the right. The cardiomediastinal silhouette iswithin normal limits in size when taking into account patient positioningand technique. Pulmonary vasculature is appropriately distributed. Thelungs are clear of active opacities. No sizable pleural effusion orpneumothorax is seen. Degenerative arthritis affects the visualized lowercervical spine. There are carotid atherosclerotic calcifications. Severeosteoarthritis affects the right glenohumeral joint with associateddeformity. IMPRESSION: 1. No radiographic evidence is seen to suggest acute cardiopulmonaryabnormality; however it should be noted that the right middle lycrrakt-oq-ehk opacities seen on CT 10/23/2024 were not demonstrated on chestradiograph 10/22/2024 and if imaging documentation of resolution of chgbupyku-sg-vsq opacities is desired, CT should be considered. 2. Carotid atherosclerotic calcifications. Referred By: PROVIDER NON-STAFF Interpreted By: Freddy Ortiz DO, 02/26/2025 6:49 AM Jax Hendrickson MD GENERAL IMAGING Final Result * GI PANEL PCR - STOOL (02/26/2025 4:52 AM CDT) CAMPYLOBACTER PCR (STOOL) NOT DETECTED NOT DETECTED 02/26/2025 5:00 PM CDT [facility] PLESIOMONAS SHIGELLOIDES PCR (STOOL) NOT DETECTED NOT DETECTED 02/26/2025 5:00 PM CDT [facility] SALMONELLA PCR (STOOL) NOT DETECTED NOT DETECTED 02/26/2025 5:00 PM CDT [facility] VIBRIO PCR (STOOL) NOT DETECTED NOT DETECTED 02/26/2025 5:00 PM CDT [facility] VIBRIO CHOLERAE PCR (STOOL) NOT DETECTED NOT DETECTED 02/26/2025 5:00 PM CDT [facility] YERSINIA ENTEROCOLITICA PCR (STOOL) NOT DETECTED NOT DETECTED 02/26/2025 5:00 PM CDT [facility] ENTEROAGGREGATIVE ECOLI PCR (STOOL) NOT DETECTED NOT DETECTED 02/26/2025 5:00 PM CDT [facility] ENTEROPATHOGENIC ECOLI PCR (STOOL) NOT DETECTED NOT DETECTED 02/26/2025 5:00 PM CDT [facility] ENTEROTOXIGENIC ECOLI PCR (STOOL) NOT DETECTED NOT DETECTED 02/26/2025 5:00 PM CDT [facility] SHIGA LIKE TOXIN ECOLI PCR (STOOL) NOT DETECTED NOT DETECTED 02/26/2025 5:00 PM CDT [facility] SHIG/ENTEROINVASIVE ECOLI PCR (STOOL) NOT DETECTED NOT DETECTED 02/26/2025 5:00 PM CDT [facility] CRYPTOSPORIDIUM PCR (STOOL) NOT DETECTED NOT DETECTED 02/26/2025 5:00 PM CDT [facility] CYCLOSPORA CAYETANENSIS PCR (STOOL) NOT DETECTED NOT DETECTED 02/26/2025 5:00 PM CDT [facility] ENTAMOEBA HISTOLYTICA PCR (STOOL) NOT DETECTED NOT DETECTED 02/26/2025 5:00 PM CDT [facility] GIARDIA LAMBLIA PCR (STOOL) NOT DETECTED NOT DETECTED 02/26/2025 5:00 PM CDT [facility] ADENOVIRUS F40/41 PCR (STOOL) NOT DETECTED NOT DETECTED 02/26/2025 5:00 PM CDT [facility] ASTROVIRUS PCR (STOOL) NOT DETECTED NOT DETECTED 02/26/2025 5:00 PM CDT [facility] NOROVIRUS GI/GII PCR (STOOL) NOT DETECTED NOT DETECTED 02/26/2025 5:00 PM CDT [facility] ROTAVIRUS A PCR (STOOL) NOT DETECTED NOT DETECTED 02/26/2025 5:00 PM CDT [facility] SAPOVIRUS PCR (STOOL) NOT DETECTED NOT DETECTED 02/26/2025 5:00 PM CDT [facility] STOOL SPECIMEN / Unknown 02/26/2025 4:52 AM CDT us Jax Hendrickson MD MICROBIOLOGY - GENERAL ORDERAB LES Final Result [facility] [address] [place] [address], * SODIUM URINE RANDOM (02/26/2025 12:32 AM CDT) NA RANDOM (U) 122 MMOL/L 02/26/2025 1:14 AM CDT [facility] Comment:REFERENCE RANGE NOT ESTABLISHED URINE SPECIMEN / Unknown 02/26/2025 12:32 AM CDT us Jax Hendrickson MD URINE ORDERABLES Final Result Performing Organization Address [facility] Co de Phone Number [facility] [address] [place] [address], [phone] * CREATININE URINE RANDOM (02/26/2025 12:32 AM CDT) CREATININE (U) 51.9 MG/DL 02/26/2025 1:14 AM CDT [facility] Comment:REFERENCE RANGE NOT ESTABLISHED URINE SPECIMEN / Unknown 02/26/2025 12:32 AM CDT Jax Hendrickson MD URINE ORDERABLES Final Result Performing Organization Address [facility] de Phone Number [facility] [address] [place] [address], [place] [phone] * (ABNORMAL) URINALYSIS (02/26/2025 12:32 AM CDT) COLOR (U) COLORLESS 02/26/2025 1:04 AM CDT [facility] TRANSPARENCY CLEAR 02/26/2025 1:04 AM CDT [facility] SPECIFIC GRAVITY (U) 1.012 1.002 - 1.035 02/26/2025 1:04 AM CDT [facility] U PH 7.5 5 - 8 02/26/2025 1:04 AM CDT [facility] PROTEIN RANDOM (U) 70(A) NEGATIVE 02/26/2025 1:04 AM CDT [facility] GLUCOSE (U) 300(A) NEGATIVE MG/DL 02/26/2025 1:04 AM CDT [facility] KETONES MG/DL (U) NEGATIVE NEGATIVE 02/26/2025 1:04 AM CDT [facility] BILIRUBIN (U) NEGATIVE NEGATIVE 02/26/2025 1:04 AM CDT [facility] BLOOD (U) TRACE(A) NEGATIVE 02/26/2025 1:04 AM CDT [facility] NITRITES NEGATIVE NEGATIVE 02/26/2025 1:04 AM CDT [facility] UROBILINOGEN NORMAL 0 - 1 EU/DL 02/26/2025 1:04 AM CDT [facility] LEUKOCYTES (U) NEGATIVE NEGATIVE 02/26/2025 1:04 AM CDT [facility] RBC/HPF 2 0 - 3 /HPF 02/26/2025 1:04 AM CDT [facility] WBC/HPF <1 0 - 6 /HPF 02/26/2025 1:04 AM CDT [facility] BACTERIA (U) NONE /HPF 02/26/2025 1:04 AM CDT [facility] SQUAMOUS EPITHELIALS 3 02/26/2025 1:04 AM CDT [facility] URINE SPECIMEN OBTAINED BY CLEAN CATCH PROCEDURE / Unknown 02/26/2025 12:32 AM CDT Jax Hendrickson MD URINE ORDERABLES Final Result [facility] [address] [place] [address], [id number] * CULTURE, URINE (02/26/2025 12:32 AM CDT) SPEC DESCRIPTION URINE CLEAN CATCH 02/26/2025 12:33 AM CDT [facility] SPECIAL REQUESTS NO SPECIAL REQUEST 02/26/2025 12:33 AM CDT [facility] CULTURE RESULT NO GROWTH (< OR = 1,000 CFU/ML) 02/27/2025 11:36 AM CDT [facility] URINE SPECIMEN OBTAINED BY CLEAN CATCH PROCEDURE / Unknown 02/26/2025 12:32 AM CDT 02/26/2025 1:13 AM CDT us Jax Hendrickson MD MICROBIOLOGY - GENERAL ORDERAB LES Final Result Performing Organization Address City/[facility]/ZIP Co de Phone Number [facility] [address] [place] [address], [place] [phone] * (ABNORMAL) PRO-BRAIN NATRIURETIC PEPTIDE (02/26/2025 12:30 AM CDT) PRO-B TYPE NATRIURETIC PEPTIDE 12,055(H) <125 PG/ML 02/26/2025 1:18 AM CDT [facility] Comment: AGE INDEPENDENT: <300 PG/ML HAS A 99% NEGATIVE PREDICTIVE VALUE FOR EXCLUDING ACUTE CHF <50 YEARS: >450 PG/ML IS CONSISTENT WITH ACUTE CHF 50-75 YEARS: >900 PG/ML IS CONSISTENT WITH ACUTE CHF >75 YEARS: >1800 PG/ML IS CONSISTENT WITH ACUTE CHF IN PATIENTS WITH RENAL INSUFFICIENCY (GFR <60), >1200 PG/ML YIELDS A DIAGNOSTIC SENSITIVITY AND SPECIFICITY OF 89% AND 72% FOR ACUTE CHF. 02/26/2025 12:3 0 AM CDT us Jax Hendrickson MD LABORATORY Final Result Performing Organization Address [facility] Co de Phone Number [facility] [address] [place] [address], [place] [phone] [id number] * LACTIC ACID (02/26/2025 12:30 AM CDT) LACTIC ACID VENOUS 1.0 0.4 - 2.0 MMOL/L 02/26/2025 1:18 AM CDT [facility] 02/26/2025 12:3 0 AM CDT us Jax Hendrickson MD LABORATORY Final Result Performing Organization Address City/[facility]/ZIP Co de Phone Number [facility] [address] [place] [address], [place] [phone] [id number] * PHOSPHORUS, INORGANIC PHOSPHATE (02/26/2025 12:30 AM CDT) PHOSPHORUS 4.4 2.5 - 4.9 MG/DL 02/26/2025 1:18 AM CDT [facility] 02/26/2025 12:3 0 AM CDT Jax Hendrickson MD LABORATORY Final Result Performing Organization Address [facility] Co de Phone Number [facility] [address] [place] [address], [id number] * CULTURE, BACTERIA, BLOOD (02/26/2025 12:29 AM CDT) SPEC DESCRIPTION BLOOD 02/26/2025 12:01 AM CDT [facility] SPECIAL REQUESTS NO SPECIAL REQUEST 02/26/2025 12:01 AM CDT [facility] CULTURE RESULT NO GROWTH 5 DAYS 03/03/2025 12:56 AM CDT [facility] BLOOD SPECIMEN OBTAINED FOR BLOOD CULTURE / Unknown 02/26/2025 12:29 AM CDT 02/26/2025 12:30 AM CDT Jax Hendrickson MD MICROBIOLOGY - GENERAL ORDERAB LES Final Result Performing Organization Address [facility] Co de Phone Number [facility] [address] [place] [address], [id number] from Last 3 Months Insurance [facility] MEDICARE PART A MEDICAID * Guarantor: Deanna Madrid Account Type Relation to Patient Date of Phone Billing Address Aly Norman B3 Self 1965 [address] [place] [id number] Advance Directives Documents on File Type Date Recorded 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 Expl anation Advance Directives and Livin g Will 07/10/2023 4:10 PM * Full Code (Latest Code Status on File) Date Activated Date Inactivated Comments 02/26/2025 12:47 AM 02/27/2025 3:45 PM * Full Code Date Activated Date Inactivated Comments 10/23/2024 12:51 PM 10/24/2024 7:17 PM * Full Code Date Activated Date Inactivated Comments 08/14/2024 7:27 PM 08/16/2024 7:07 PM * Full Code Date Activated Date Inactivated Comments 09/08/2023 4:19 AM 09/14/2023 8:40 PM * Full Code Date Activated Date Inactivated Comments 05/04/2023 7:49 PM 05/24/2023 7:09 PM Care Teams Buckle Inspector Relationship Specialty Start Date End Date Destinee Rodriguez NP PCP - General NURSE PRACTITIONER 09/08/23
--- OUTSIDE RECORDS SUMMARY | 2025-03-05 05:24 | XMS_ITS | Encounter Summary ---
Author Organization [facility] Address [address] [place] [address] Care Team Providers Care Tacker Elastic Band Name Role Phone Destinee Rodriguez KENNEL OPERATOR Primary Care Provider Encounter Details Date Type Department Care Team (Late st Contact Info) Description 09/17/2023 Hospital Follow-up Call [facility] [address] [place] [address] Xiomara Schmitt RN Social History Tobacco Use Types Packs/Day Years Used Date Smoking Tobacco: Never Smokeless Tobacco: Never [facility] Utilities Answer Date Recorded In [...] place to sleep or slept in a half-way (including now)? No 09/08/2023 Comments Unknown Sex and Gender Information Value Date Recorded Sex Assigned at Female 10/22/2024 9:59 PM CHEMIST STEROIDS Legal Sex Female 9:54 PM CHEMIST STEROIDS Gender Identity Not on file Sexual Orientation Not on file documented as of this encounter Functional Status * Are you deaf or do you have serious difficulty hearing Answer Date of Assessment Author Status No 09/08/2023 3:58 AM vEer Chua RN Active * Are you blind [...] Assessment Author Status No 09/08/2023 3:58 AM CHEMIST STEROIDS Ever Yancey RN Active documented as of this encounter Mental Status * Because of a physical, mental, or emotional condition, do you have serious difficulty concentrating, remembering, or making decisions? Answer Entry Date Author Status No 09/08/2023 3:58 AM CHEMIST STEROIDS Ever Yancey RN Active documented in this [...] Rule Out 10/22/2024 10/22/2024 10/22/2024 10:40 PM CHEMIST STEROIDS Respiratory Rule Out 10/22/2024 10/22/2024 025 10:41 PM CHEMIST STEROIDS documented as of this encounter Care Teams Tacker Elastic Band Relationship Specialty Start Date End Date Destinee Rodriguez NP PCP - General NURSE PRACTITIONER 09/08/23 documented as of this encounter
--- OUTSIDE RECORDS SUMMARY | 2025-03-05 05:24 | XMS_ITS | Encounter Summary ---
Author Organization [facility] Address [address] [place] [address] Care Team Providers Care Meter Shop Supervisor Name Role Phone None, Provider MD Primary Care Provider Jyothi treviño Non-Staff, Provider Primary Care Provider Luis Manuel Osborne MD Primary Care Provider [phone] Destinee Rodriguez NP Primary Care Provider [phone] Reason for Referral * Surgical (Routine) - Closed Specialty Diagnoses / Procedures Referred By Contheena t Referred To Contact Diagnoses Osteomyelitis Procedures Case request operating room: BONE BIOPSY-FOOT Jaxon August MD [facility] [address] [place] [address] Phone: tel: fax: [place] [address] Phone: tel: Referral ID Status Reason Start Date Expiration Date Visits Re quested Visits Authorized [id number] Closed 03/09/2022 04/06/2023 1 1 Encounter Details Date Type Department Care Team (Late st Contact Info) Description 03/06/2022 Prep for Procedure [facility] [place] [address] [place], [place] [id number] Jaxon August MD [facility]. [place] [address] [place] [address] Social History Tobacco Use Types Packs/Day Years Used Date Smoking Tobacco: Never Smokeless Tobacco: Never Comments Unknown Sex and Gender Information Value Date Recorded Sex Assigned at Female 10/22/2024 9:59 PM HERBICIDE SERVICE SALES REPRESENTATIVE Legal Sex Female 9:54 PM HERBICIDE SERVICE SALES REPRESENTATIVE Gender Identity Not on file Sexual Orientation [...] Status No Risk Indicated 03/09/2022 10:52 AM LIT Gómez Martin RN Active * [place] Suicide Severity Rating Scale (Screener/Recent Self-Report) Question [...] Rule Out 10/22/2024 10/22/2024 10/22/2024 10:40 PM HERBICIDE SERVICE SALES REPRESENTATIVE Respiratory Rule Out 10/22/2024 10/22/2024 025 10:41 PM HERBICIDE SERVICE SALES REPRESENTATIVE documented as of this encounter Care Teams Meter Shop Supervisor Relationship Specialty Start Date End Date None, Provider, PCP - General 08/20/21 06/01/22 Non-Staff, Provider PCP - General UNKNOWN PHYSICIAN SPECIALTY 06/02/22 05/07/23 Luis Manuel Mccall MD [facility] [place] [address] PCP - General FAMILY PRACTICE 05/08/23 09/07/23 Destinee Rodriguez NP [facility] [place] [address] PCP - General NURSE PRACTITIONER 09/08/23 documented as of this encounter
--- NOTE | 2025-03-05 05:30 | PC.NURSE ---
BLOOD WORK DRAWN AND TAKEN DOWN TO LAB
--- NOTE | 2025-03-05 05:40 | PC.NURSE ---
PATIENT REPORTS THAT SHE KNOWS WHEN SHE NEEDS TO VOID AND WILL CALL OUT WHEN SHE IS READY. PATIENT DEPENDS CHANGED. PATIENT REPOSITIONED FOR COMFORT
--- NOTE | 2025-03-05 05:48 | ECG_ITS ---
Test Date: 2025-03-05 06:10:11 Measurements Intervals [place] Rate: 76 P: 38 VA: 199 QRS: -5 QRSD: 141 T: 129 QT: 414 QTc: 466 Interpretive Statements SINUS RHYTHM POSSIBLE LEFT ATRIAL ENLARGEMENT [-0.1mV P-WAVE IN V1/V2] LEFT BUNDLE BRANCH BLOCK [120+ ms QRS DURATION, 80+ ms Q/S IN V1/V2, 85+ ms R IN I/aVL/V5/V6] Compared to ECG 02/25/2025 16:40:12 No significant changes Electronically Signed On 03-05-2025 14:41:23 CDT by Jatinder Springer M.D.
--- NOTE | 2025-03-05 05:50 | ED.NAVMDI ---
HPI - Nausea/Vomiting/Diarrhea General Chief complaint: Nausea/Vomiting/Diarrhea Stated complaint: n/v/d Time Seen by Provider: 03/05/25 05:33 Source: patient Mode of arrival: ambulatory Limitations: no limitations History of Present Illness HPI Narrative: 59-year-old female with a history of depression, diabetes mellitus, dyslipidemia, PVD status post right BKA, CHF tremor, acute on chronic renal failure, chronic anemia with recent hospitalizations at [facility] from 02/17 to 02/20 and to [facility] on 02/25/2025 presents to the ED with -- ongoing nausea and vomiting. She is unable to keep anything. No abdominal pain. No diarrhea. No fever or chills. No hematemesis or melena. She has had this since December of this year. Patient has been advised hemodialysis but she states that she is not yet ready. patient has been EGD in December which revealed an esophageal ulcer. MD elicited complaint: nausea and vomiting Pertinent past history: anorexia Onset (ago): month(s) ( Two months) Description of vomiting: food contents and watery Associated nausea: Yes Associated abdominal pain: No Location of pain: none Exacerbating factors: none Relieving factors: none Associated symptoms: denies other symptoms Related Data Home Medications ?Medication ?Instructions ?Recorded ?Confirmed ?Last Taken ?Type amlodipine 10 mg tablet 10 mg PO DAILY 12/18/24 02/17/25 Unknown History atorvastatin 80 mg tablet (Lipitor) 80 mg PO HS 12/18/24 02/17/25 Unknown History bumetanide 1 mg tablet 1 mg PO DAILY 12/18/24 02/17/25 Unknown History darbepoetin jeffrey-albumin 40 mcg/mL 40 mcg subcut MONTHLY PRN low hgb 12/18/24 02/25/25 Unknown History in albumin injection gabapentin 100 mg capsule 100 mg PO BID 12/18/24 02/17/25 Unknown History hydralazine 10 mg tablet 10 mg PO TID 12/18/24 02/17/25 Unknown History isosorbide dinitrate 10 mg tablet 20 mg PO BID 12/18/24 02/17/25 Unknown History sertraline 50 mg tablet 100 mg PO DAILY 12/18/24 02/17/25 Unknown History sodium bicarbonate 650 mg tablet 1,300 mg PO BID 12/18/24 02/17/25 Unknown History famotidine 40 mg tablet 40 mg PO Q12H 02/16/25 02/17/25 Unknown History aspirin 81 mg tablet,delayed 81 mg PO DAILY 02/17/25 02/17/25 Unknown History release (Adult Low Dose Aspirin) cholecalciferol (vitamin D3) 25 25 mcg PO DAILY 02/17/25 02/17/25 Unknown History mcg (1,000 unit) capsule (Vitamin D3) patiromer calcium sorbitex 8.4 8.4 g PO .ever 02/17/25 02/17/25 Unknown History gram oral powder packet metoclopramide HCl 5 mg tablet 5 mg PO Q8H PRN nausea and vomiting 02/25/25 Unknown History Allergies Allergy/AdvReac Type Severity Reaction Status Date / Time No Known Allergies Allergy Unknown Verified 03/05/25 06:48 Review of Systems Constitutional: Constitutional: Reports as per HPI, Reports no additional constitutional complaints and Reports weakness Eyes: Eyes: Reports as per HPI ( decreased vision both eyes) ENT: Reports system reviewed and no additional complaints, except as documented and Reports as per HPI Cardiovascular: Cardiovascular: Reports as per HPI and Reports no additional cardiovascular complaints Respiratory: Respiratory: Reports as per HPI and Reports no additional respiratory complaints Gastrointestinal: Gastrointestinal: Reports as per HPI, Reports no additional gastrointestinal complaints, Reports nausea and Reports vomiting Genitourinary: Genitourinary: Reports no additional female genitourinary complaints and Reports as per HPI Musculoskeletal: Musculoskeletal: Reports no additional musculoskeletal complaints and Reports as per HPI Integumentary/Breasts: Skin/Breast: Reports system reviewed and no additional complaints, except as docu and Reports as per HPI Neurologic: Reports system reviewed and no additional complaints, except as documented and Reports as per HPI Psychiatric: Psychiatric: Reports no additional psychiatric complaints and Reports as per HPI Endocrine: Endocrine: Reports no additional endocrine complaints and Reports as per HPI Hematologic/Lymphatic: Hematologic/Lymphatic: Reports no additional hematologic/lymphatic complaints and Reports as per HPI Allergic/Immunologic: Allergic/Immunologic: Reports no additional allergic/immunologic complaints and Reports as per HPI [facility] Past Medical History Medical History Chronic anemia Erosive esophagitis Insulin dependent type 2 diabetes mellitus Chronic kidney disease, stage 4 (severe) 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 Code status: Full code. Smoking status: Never smoker Second hand tobacco smoke exposure: No Additional smoking assessment comments: Per patient her spouse smokes in the home. Alcohol intake: never Substance use: never Substance use type: does not use Do You Feel Safe in your Home?: Yes Lack of Transportation: No Lack of Food: Never True Current Housing: I Have Housing Concerned About Future Housing: No Difficulty Paying Gas/Electric Bills: No Difficulty Paying for Meds: No Currently Unemployed: No Education: Decline to Answer Difficulty w/ Childcare or Family Care: No Living arrangements: with family Additional living arrangements comments: Lives with in [place]. They have 2 grown children. Occupation/Education: retired Additional occupation/education comments: Was in the [email or web address]. Spiritual care concerns: No Agree to blood products: Yes Exam Narrative: vitals are stable heart rate of 81. Blood pressure 169/83. Oxygen saturation of 98% on room air Const: General: ill appearing Nutritional Appearance: thin Orientation/consciousness: patient oriented x3 Limitations: no limitations HENMT: Head: normal to inspection Ears: external ears normal Face/Nose/Sinus: Normal external nose present Face and sinus: normal facial exam Mouth: Yes Normal oral and palatal mucosa present Throat: posterior oropharynx normal Eyes: Conjunctivae: conjunctivae normal Pupils: Equal, round and reactive pupils present EOM: EOMs intact bilaterally Other: bilateral iridectomy scar. Bilateral severely decreased vision Neck: Neck: normal visual inspection, no lymphadenopathy and no meningeal signs Chest: Chest palpation & inspection: normal inspection of the chest Resp: Effort & Inspection: normal respiratory effort Auscultation: clear to auscultation bilaterally Cardio: Rate: regular rate Rhythm: regular rhythm GI: GI Palp: Yes Soft to palpation Auscultation: normal bowel sounds Other: NO tenderness/ rigidity /rebound. : General: Yes no CVA tenderness Back/Spine/Pelvis: Back: no CVA tenderness Skin: General skin exam: normal color Rashes: no rashes Wounds: no wounds Neuro: General: patient oriented x3, moves all extremities, no meningeal signs, no focal motor deficits and CN's II-XI intact bilaterally Speech: normal speech Extrem: General: normal to inspection and no clubbing, cyanosis or edema Psych: Mental Status: mental status grossly normal Affect: normal affect Attitude: cooperative Course Course Emergency Course: Nausea and vomiting-- No episodes of vomiting in the ED after the patient received Compazine IM. Patient has had an EGD in December which revealed reflux esophagitis. Patient had biopsies the results of which are unremarkable. this appears to be related to renal failure. CKD-- BUN/ creatinine is noted to be 35/2.97 metabolic acidosis with a bicarbonate of 19. the patient has chronic renal insufficiency and she is a candidate for dialysis. patient has refused dialysis in yhe past Chronic anemia-- H&H is noted to be 10/31.8. Vital Signs Vital signs: Vital Signs Temperature 36.8 C 03/05/25 05:22 Pulse Rate 81 03/05/25 05:22 Respiratory Rate 18 03/05/25 05:22 Blood Pressure 169/83 H 03/05/25 05:22 Pulse Oximetry 98 03/05/25 05:22 Oxygen Delivery Room Air 03/05/25 05:22 Temperature 36.8 C 03/05/25 05:22 Pulse Rate 81 03/05/25 05:22 Respiratory Rate 18 03/05/25 05:22 Blood Pressure 169/83 H 03/05/25 05:22 Pulse Oximetry 98 03/05/25 05:22 Oxygen Delivery Room Air 03/05/25 05:22 MDM - Nausea/Vomiting/Diarrhea MDM Narrative Medical decision making narrative: CKD with metabolic acidosis chronic anemia nausea and vomiting Differential Diagnosis Differential diagnosis: Likely gastroenteritis Medical Records Attestation: I reviewed the patient's medical records. Lab Data Attestation: I reviewed the patient's lab results. 03/05/25 05:48 03/05/25 05:48 Labs: Lab Results 03/05/25 03/05/25 Range/Units 05:48 06:20 WBC 7.7 (4.8-10.8) K/mm3 RBC 3.58 L (4.20-5.40) M/mm3 Hgb 10.0 L (12.0-15.0) g/dL Hct 31.8 L (35.0-49.0) % MCV 88.8 (78.0-102.0) fL MCH 27.9 (27.0-31.0) pg MCHC 31.4 L (32-36) g/dL RDW 14.5 H (11.6-14.4) % Plt Count 377 (150-420) K/mm3 MPV 10.6 (9.2-11.8) fl Immature Gran % (Auto) 0.3 H (0.0-0.0) % Neut % (Auto) 48.5 L (50.0-70.0) % Lymph % (Auto) 40.0 (18.0-42.0) % [place] % (Auto) 8.5 (2.0-11.0) % Eos % (Auto) 1.7 (1.0-6.0) % Baso % (Auto) 1.0 (0.0-1.0) % Lymph # (Auto) 3.06 (1.10-4.50) K/mm3 [place] # (Auto) 0.65 (0.10-0.90) K/mm3 Eos # (Auto) 0.13 (0.02-0.50) K/mm3 Baso # (Auto) 0.08 (0.00-0.10) K/mm3 Abs Immat Gran (auto) 0.02 H (0.00-0.00) K/mm3 Absolute Neuts (auto) 3.71 (1.70-7.20) K/mm3 Absolute Nucleated RBC 0.00 (0.00-0.00) K/mm3 Nucleated RBC % 0.0 (0-0.0) % Sodium 136 L (137-145) mmol/L Potassium 4.6 (3.4-5.0) mmol/L Chloride 109 H (98-107) mmol/L Carbon Dioxide 19 L (22-30) mmol/L Anion Gap 8 (4-12) mmol/L BUN 35 H (7-17) mg/dL Creatinine 2.97 H (0.7-1.0) mg/dL Estim Creat Clear Calc Not Reportable Estimated GFR 16 L (59 - ) Glucose 101 (65-110) mg/dL Calculated Osmolality 290 (285-295) mOsm/kg Lactic Acid 0.9 (0.4-2.0) mmol/L Calcium 8.4 (8.4-10.2) mg/dL Phosphorus 3.9 (2.5-4.5) mg/dL Total Bilirubin 0.8 (0.2-1.3) mg/dL AST 30 (14-36) U/L ALT 13 (6-35) U/L Alkaline Phosphatase 91 (38-126) U/L Total Creatine Kinase 62 (30-135) U/L Troponin I 0.031 (0.000-0.034) ng/mL Total Protein 7.0 (6.3-8.2) g/dL Albumin 3.5 (3.5-5.1) g/dL Lipase 166 (23-300) U/L Urine Color Light yellow (Yellow) Urine Appearance Clear (Clear) Urine pH 6.5 (5.0-8.0) Ur Specific [place] 1.010 (1.010-1.020) Urine Protein 2+ H (Negative) Urine Glucose (UA) Negative (Negative) Urine Ketones Negative (Negative) Ur Blood (Man) Negative (Negative) Urine Nitrate Negative (Negative) Urine Bilirubin Negative (Negative) Urine Urobilinogen 0.2 (0.2-1.0) mg/dL Leukocyte Esterase Rfl 1+ H (Negative) BRIAN/UL Urine RBC None seen (0-2) /hpf Urine WBC 0-3 (0-3) /hpf Ur Squamous Epith Cells Few (Few) /hpf Urine Bacteria Trace (None) /hpf Urine Yeast (Budding) Present H (None) /hpf Imaging Data My impression: Chest x-ray the rupture any infiltrat ECG Data EKG #1: ECG completion date: 03/05/25 ECG completion time: 06:10 Interpretation: Normal sinus rhythm. Normal axis. Left bundle-branch block pattern. This EKG is unchanged from previous EKGs. Discharge Plan Discharge Clinical Impression: Chronic kidney disease Qualifiers: Chronic kidney disease stage: stage 4 (GFR 15-29) Qualified Code(s): N18.4 - Chronic kidney disease, stage 4 (severe) Anemia in chronic kidney disease Qualifiers: Chronic kidney disease stage: stage 4 (GFR 15-29) Qualified Code(s): N18.4 - Chronic kidney disease, stage 4 (severe) Nausea & vomiting Qualifiers: Vomiting type: unspecified Qualified Code(s): R11.2 - Nausea with vomiting, unspecified Patient Disposition: Still a Patient Condition: Stable Additional Instructions: transfer patient to [facility] in [facility]. Patient has been accepted by Patient Language: Ethiopian Prescriptions: No Action darbepoetin jeffrey-albumin 40 mcg/mL solution 40 mcg subcut MONTHLY PRN (Reason: low hgb) Rx Instructions: give if hgb is less than 10 isosorbide dinitrate 10 mg tablet 20 mg PO BID sertraline 50 mg tablet 100 mg PO DAILY amlodipine 10 mg tablet 10 mg PO DAILY atorvastatin [Lipitor] 80 mg tablet 80 mg PO HS gabapentin 100 mg capsule 100 mg PO BID sodium bicarbonate 650 mg tablet 1,300 mg PO BID Rx Instructions: 2 tabs BID bumetanide 1 mg tablet 1 mg PO DAILY Rx Instructions: 1/2 tab daily hydralazine 10 mg tablet 10 mg PO TID famotidine 40 mg tablet 40 mg PO Q12H metoclopramide HCl 5 mg tablet 5 mg PO Q8H PRN (Reason: nausea and vomiting) pantoprazole 40 mg Tablet,Delayed Release (Dr/Ec) 40 mg PO Q12HR Qty: 60 0RF patiromer calcium sorbitex 8.4 gram powder in packet 8.4 g PO .ever aspirin [Adult Low Dose Aspirin] 81 mg tablet,delayed release (DR/EC) 81 mg PO DAILY cholecalciferol (vitamin D3) [Vitamin D3] 25 mcg (1,000 unit) capsule 25 mcg PO DAILY ipratropium-albuterol 0.5 mg-3 mg(2.5 mg base)/3 mL Solution For Nebulization 3 ml inhalation Q6HRT PRN (Reason: Shortness Of Breath Or Wheezing) Qty: 30 0RF polyethylene glycol 3350 [Miralax] 17 gram Powder In Packet 17 g PO NOON Qty: 14 0RF linezolid 600 mg Tablet 600 mg PO Q12HR Qty: 10 0RF doxycycline hyclate 100 mg Tablet 100 mg PO Q12HR Qty: 10 0RF amoxicillin-pot clavulanate [Augmentin] 500-125 mg Tablet 1 tablet PO Q12HR Qty: 10 0RF Follow-up/Referrals: UNKNOWN,DOCTOR [Primary Care Provider] - Time of Disposition: 06:54
[2025-03-05] MEDS: PROCHLORPERAZINE EDISYLATE 10 MG/2 ML VIAL IM (05:55)
[2025-03-05 05:56] LABS: Hematocrit 31.8 % (35.0-49.0); Hemoglobin 10.0 g/dL (12.0-15.0); Immature Granulocyte Percent A 0.3 % (0.0-0.0); Lymphocytes Absolute Auto 3.06 K/mm3 (1.10-4.50); Mean Corpuscular HGB Conc 31.4 g/dL (32-36); Mean Corpuscular Hemoglobin 27.9 pg (27.0-31.0); Mean Corpuscular Volume 88.8 fL (78.0-102.0); Nucleated Red Blood Cells Absolute Auto 0.00 K/mm3 (0.00-0.00); Nucleated Red Blood Cells Perc 0.0 % (0-0.0); Platelet Count Result 377 K/mm3 (150-420); Red Blood Count 3.58 M/mm3 (4.20-5.40); White Blood Count 7.7 K/mm3 (4.8-10.8)
[2025-03-05 06:03] LABS: Alanine Aminotransferase 13 U/L (6-35); Albumin Level 3.5 g/dL (3.5-5.1); Alkaline Phosphatase 91 U/L (38-126); Anion Gap 8 mmol/L (4-12); Aspartate Amino Transferase 30 U/L (14-36); Bilirubin,Total 0.8 mg/dL (0.2-1.3); Blood Urea Nitrogen 35 mg/dL (7-17); Calcium 8.4 mg/dL (8.4-10.2); Carbon Dioxide 19 mmol/L (22-30); Chloride 109 mmol/L (98-107); Creatine Kinase 62 U/L (30-135); Estimated Glomerular Filt Rate 16; Glucose 101 mg/dL (65-110); Lipase 166 U/L (23-300); Osmolality Calculated 290 mOsm/kg (285-295); Potassium 4.6 mmol/L (3.4-5.0); Sodium 136 mmol/L (137-145); Total Protein 7.0 g/dL (6.3-8.2)
[2025-03-05 06:14] LABS: Troponin I 0.031 ng/mL (0.000-0.034)
[2025-03-05 06:23] LABS: Add Urine Microscopic? YES; Appearance Urine Clear (Clear); Glucose Urine UA Negative (Negative); Leukocyte Esterase Ur 1+ LEU/UL (Negative); Nitrate Urine Negative (Negative); Specific Grav Ur 1.010 (1.010-1.020)
--- OUTSIDE RECORDS SUMMARY | 2025-03-05 06:25 | XMS_ITS | Clinical Summary ---
Author Organization [facility] Address [address] [place] [address] Care Team Providers Care Supervisor Nut Processing Name Role Phone Destinee Rodriguez HAND PLEATER Primary Care Provider [phone] Allergies No known active allergies Medications amLODIPine [...] (CMS/HCC HHS/HCC) Fracture of femoral neck, right ([facility] ) 05/04/2023 Osteomyelitis ([facility]) 02/26/2022 Encounters Date Type Department Care Team Description 02/26/2025 Travel 02/25/2025 11:40 PM CDT - 02/27/2025 1:45 PM CDT Hospital Encounter [facility] [address] [place] [address] Sunny Tran MD Shackour, Salim, MD Mahmoud, [...] drink = 0.6 oz pur e alcohol) [facility] Utilities Answer Date Recorded In the past 12 months has e Between Digital, gas, oil, or water Pict threatened to shut off services in your [...] place to sleep or slept in a chcf (including now)? No 09/08/2023 Housing Stability Vital Sign Answer Jose e Recorded In the last 12 months, was t here a time when you were not able to pay the mortgage or rent on time? No 02/25/2025 In the past 12 months, how m any times have you moved where you were living? 0 02/25/2025 At any time in the past 12 m [facility], were you homeless or living in a chcf (including now)? No 02/25/2025 Comments No Sex and Gender Information Value Date Recorded Sex Assigned at Female 10/22/2024 9:59 PM HEAVY EQUIPMENT SUPERVISOR Legal Sex Female 9:54 PM HEAVY EQUIPMENT SUPERVISOR Gender Identity Not on file Sexual [...] Colón RN Medical Devices Implanted Type Area Cloth Printing Back Tender Device Identifier Shelf Expiration Date Model / Serial / Lot Cement Bone Biomet 40gm - [id number] Implanted:Qty: 2 on 05/05/2023 by Idris Almanza MD at [facility] Cement Implant Right: Hip [employer] 08/19/2025 [id number] / / Plug Cement Kvng Gabriel Medullary 20mm - [id number] Implanted:Qty: 1 on 05/05/2023 by Idris Almanza MD at [facility] Cement Implant Right: Hip [employer] 01/11/2027 [id number] / / Shell Kvng Bipolar 41mm Od - [id number] Implanted:Qty: 1 on 05/05/2023 by Idris Almanza MD at [facility] Hip Components Right: Hip [employer] 12/17/2025 [id number] / / Liner Kvng Bipolar Hip 22 Id 40/41mm - [id number] Implanted:Qty: 1 on 05/05/2023 by Idris Almanza MD at [facility] Hip Components Right: Hip [employer] 08/19/2025 [id number] / / [id number] Implanted:Qty: 1 on 05/05/2023 by Idris Almanza MD at [facility] Right: Hip [employer] 08/25/2027 [id number] / / Femoral Head Implanted:Qty: 1 on 05/05/2023 by Idris Amlanza MD at [facility] Right: Hip [employer] 09/15/2031 [id number] / / Explanted Type Area Cloth Printing Back Tender Device Identifier Shelf Expiration Date Model / Serial / Lot System Bone Cement 1 2 Mix - [id number] Explanted:Qty: 1 on 05/05/2023 by Idris Almanza MD at [facility] Cement Implant Right: Hip [employer] 12/21/2025 [id number] / / Femoral Cement Preparation Kit Explanted:Qty: 1 on 05/05/2023 by Idris Almanza MD at [facility] Right: Hip [employer] 11/25/2027 [id number] [...] 70 - 109 02/27/2025 8:55 PM CDT [facility] 02/27/2025 12:4 7 PM CDT us Linh Miramontes MD POCT ORDERABLES - DEVICE Final R esult [facility] [address] [place] [address], [id number] * (ABNORMAL) COMPREHENSIVE METABOLIC PANEL (02/27/2025 3:21 AM CDT) Only the most recent of2 resultswithin the time period is included. SODIUM S/P/B 139 136 - 145 MMOL/L 02/27/2025 5:04 AM CDT [facility] POTASSIUM S/P/B 4.2 3.5 - 5.1 MMOL/L 02/27/2025 5:04 AM CDT [facility] CHLORIDE S/P/B 113 97 - 115 MMOL/L 02/27/2025 5:04 AM CDT [facility] CO2 20.3(L) 21.0 - 32.0 MMOL/L 02/27/2025 5:04 AM [facility] GLUCOSE 81 74 - 106 MG/DL 02/27/2025 5:04 AM [facility] BUN 37(H) 7 - 18 MG/DL 02/27/2025 5:04 AM [facility] CREATININE S/P/B 3.42(H) 0.55 - 1.02 MG/DL 02/27/2025 5:04 AM [facility] CALCIUM S/P/B 7.7(L) 8.5 - 10.1 MG/DL 02/27/2025 5:04 AM [facility] BILIRUBIN TOTAL S/P/B 0.3 0.2 - 1.0 MG/DL 02/27/2025 5:04 AM [facility] ALKALINE PHOSPHATASE S/P/B 98 50 - 130 U/L 02/27/2025 5:04 AM [facility] AST 10(L) 15 - 37 U/L 02/27/2025 5:04 AM [facility] ALT 9(L) 13 - 56 U/L 02/27/2025 5:04 AM [facility] TOTAL PROTEIN S/P/B 5.7(L) 6.4 - 8.2 G/DL 02/27/2025 5:04 AM [facility] ALBUMIN S/P/B 2.3(L) 3.4 - 5.0 G/DL 02/27/2025 5:04 AM [facility] ANION GAP 5.7 2.0 - 10.0 MMOL/L 02/27/2025 5:04 AM [facility] OSMOLALITY (CALC) 296 MOSM/KG 025 5:04 AM [facility] Comment:REFERENCE RANGE NOT ESTABLISHED GFR ESTIMATE 15(L) >90 ML/MIN/1. 73 M2 02/27/2025 5:04 AM CDT [facility] GFR NOTES GFR REFERENCE S: 02/27/2025 5:04 AM CDT [facility] Comment: THE ESTIMATED GFR [...] CDT Jax Hendrickson MD LABORATORY Final Result [facility] [address] [place] [address], [id number] * (ABNORMAL) CBC W/DIFF AUTOMATED (02/27/2025 3:21 AM CDT) Only the most recent of2 resultswithin the time period is included. WBC 8.61 4.00 - 10.80 x10'3/uL 02/27/2025 4:32 AM CDT [facility] RBC 2.79(L) 4.10 - 5.40 x10'6/uL 02/27/2025 4:32 AM CDT [facility] HGB 7.8(L) 12.0 - 16.0 G/DL 02/27/2025 4:32 AM CDT [facility] HCT 24.5(L) 36.0 - 47.0 % 02/27/2025 4:32 AM CDT [facility] MCV 87.8 78.0 - 100.0 FL 02/27/2025 4:32 AM CDT [facility] MCH 28.0 27.0 - 31.0 PG 02/27/2025 4:32 AM CDT [facility] MCHC 31.8(L) 33.0 - 36.0 G/DL 02/27/2025 4:32 AM CDT [facility] RDW 13.9 11.5 - 14.5 % 02/27/2025 4:32 AM CDT [facility] PLT 257 150 - 350 x10'3/uL 02/27/2025 4:32 AM CDT [facility] MPV 10.8(H) 7.4 - 10.4 FL 02/27/2025 4:32 AM CDT [facility] DIFFERENTIAL TYPE AUTOMATED DIFFERENTIAL 02/27/2025 4:32 AM CDT [facility] SEG NEUTROPHILS 37.1 % 4:32 AM CDT [facility] LYMPHOCYTES 53.5 % 02/27/2025 4:32 AM CDT [facility] MONOCYTES 6.5 % 02/27/2025 4:32 AM CDT [facility] EOSINOPHILS 2.0 % 02/27/2025 4:32 AM CDT [facility] BASOPHILS 0.6 % 02/27/2025 4:32 AM CDT [facility] IMMATURE GRANS % 0.3 % 02/28/20 4:32 AM CDT [facility] ABS. NEUTROPHILS 3.19 1.60 - 8.30 x10'3/uL 02/27/2025 4:32 AM CDT [facility] ABS. LYMPHOCYTES 4.61 0.80 - 4.70 x10'3/uL 02/27/2025 4:32 AM CDT [facility] ABS. MONOCYTES 0.56 0.00 - 1.50 x10'3/uL 02/27/2025 4:32 AM CDT [facility] ABS. EOSINOPHILS 0.17 0.00 - 0.40 x10'3/uL 02/27/2025 4:32 AM CDT [facility] ABS. BASOPHILS 0.05 0.00 - 0.20 x10'3/uL 02/27/2025 4:32 AM CDT [facility] ABS. IMMATURE GRANULOCYTES 0.03 0.00 - 0.03 x10'3/uL 02/27/2025 4:32 AM CDT [facility] ABS. NUCLEATED RBC'S 0.00 0.00 - 0.01 x10'3/uL 02/27/2025 4:32 AM CDT [facility] NRBC % 0.0 % 02/27/2025 4:32 AM CDT [facility] 02/27/2025 3:21 AM CDT us Jax Hendrickson MD LABORATORY Final Result Performing Organization Address City/[facility]/ZIP Co de Phone Number [facility] [address] [place] [address], [id number] * MAGNESIUM (02/27/2025 3:21 AM CDT) Only the most recent of2 resultswithin the time period is included. [facility] MAGNESIUM 1.7 1.6 - 2.6 MG/DL 02/27/2025 5:04 AM CDT [facility] 02/27/2025 3:21 AM CDT us Jax Hendrickson MD LABORATORY Final Result Performing Organization Address [facility]/ZIP Co de Phone Number [facility] [address] [place] [address], [place] [phone] * TROPONIN, QUANT (02/26/2025 1:37 PM CDT) Only the most recent of3 resultswithin the time period is included. [facility] TROPONIN I HIGH SENSITIVITY 39 0 - 53 ng/L 02/26/2025 2:17 PM CDT [facility] 02/26/2025 1:37 PM CDT Jax Hendrickson MD LABORATORY Final Result [facility] [address] [place] [address], [id number] * US RETROPERITONEAL COMP (02/26/2025 10:35 AM CDT) Anatomical Region Laterality Modality Abdomen Ultrasound 02/27/2025 12:4 1 AM CDT Impressions 02/27/2025 12:43 AM CDT IMPRESSION: 1. No hydronephrosis or acute renal abnormality visualized. 2. Nonvisualization of the left urinary jet. Referred By: PROVIDER NON-STAFF Interpreted By: Brooks Man MD, 02/27/2025 12:41 AM Narrative 02/27/2025 12:43 AM CDT [address] [address] EXAMINATION: Ultrasound of the kidneys and urinary [...] Procedure Note Brooks Man MD - 02/27/2025 [facility] [address] [place], [place] [address] EXAMINATION: Ultrasound of the kidneys and urinary [...] AM CDT) 02/26/2025 6:31 AM CDT Narrative [facility] - 02/26/2025 1:45 PM CDT [address] [address] Test Date: 2025-02-26 Pat Name: DEANNA MADRID Department: 1 Room: 73A Gender: Female Director Of Cardiopulmonary Services: Josue : 1965 Requested By: JAX HENDRICKSON Order Number: [id number] Nicki MD: Ilan Velasquez Measurements Intervals [place] Rate: 73 P: 31 PA: 183 QRS: -30 QRSD: 145 T: 131 QT: 444 QTc: 492 Interpretive Statements SINUS RHYTHM LEFT BUNDLE BRANCH BLOCK Procedure Note Ilan Velasquez MD - 02/26/2025 [facility] [address] [place] [address] Test Date: 2025-02-26 Pat Name: DEANNA MADRID Department: 1 Room: [facility] Gender: Female Director Of Cardiopulmonary Services: Josue : 1965 Requested By: JAX HENDRICKSON Order Number: [id number] Reading MD: Ilan Velasquez Measurements Intervals [place] Rate: 73 P: 31 PA: 183 QRS: -30 QRSD: 145 T: 131 QT: 444 QTc: 492 Interpretive Statements SINUS RHYTHM LEFT BUNDLE BRANCH BLOCK us Jax Hendrickson MD ECG ORDERABLES Final Result [facility] * XR CHEST PORTABLE (02/26/2025 6:19 [...] 6:49 AM Narrative 02/26/2025 6:53 AM CDT [facility] [address] [place], [place] [address] Examination: XR CHEST PORTABLE Exam time: 02/26/2025 [...] deformity. Procedure Note Freddy Ortiz, - 02/26/2025 [facility] [address] [place], [place] [address] Examination: XR CHEST PORTABLE Exam time: 02/26/2025 [...] should be noted that the right middle sssbgvoh-rp-ivu opacities seen on CT 10/23/2024 were not demonstrated on chestradiograph 10/22/2024 and if imaging documentation of resolution of rcemepjkj-zg-cva opacities is desired, CT should be considered. 2. Carotid atherosclerotic calcifications. Referred By: PROVIDER NON-STAFF Interpreted By: Freddy Ortiz DO, 02/26/2025 6:49 AM Jax Hendrickson MD GENERAL IMAGING Final Result * GI PANEL PCR - STOOL (02/26/2025 4:52 AM CDT) CAMPYLOBACTER PCR (STOOL) NOT DETECTED NOT DETECTED 02/26/2025 5:00 PM CDT [facility] PLESIOMONAS SHIGELLOIDES PCR (STOOL) NOT DETECTED NOT DETECTED 02/26/2025 5:00 PM CDT [facility] SALMONELLA PCR (STOOL) NOT DETECTED NOT DETECTED 02/26/2025 5:00 PM CDT [facility] VIBRIO PCR (STOOL) NOT DETECTED NOT DETECTED 02/26/2025 5:00 PM CDT [facility] VIBRIO CHOLERAE PCR (STOOL) NOT DETECTED NOT DETECTED 02/26/2025 5:00 PM CDT [facility] YERSINIA ENTEROCOLITICA PCR (STOOL) NOT DETECTED NOT DETECTED 02/26/2025 5:00 PM CDT [facility] ENTEROAGGREGATIVE ECOLI PCR (STOOL) NOT DETECTED NOT DETECTED 02/26/2025 5:00 PM CDT [facility] ENTEROPATHOGENIC ECOLI PCR (STOOL) NOT DETECTED NOT DETECTED 02/26/2025 5:00 PM CDT [facility] ENTEROTOXIGENIC ECOLI PCR (STOOL) NOT DETECTED NOT DETECTED 02/26/2025 5:00 PM CDT [facility] SHIGA LIKE TOXIN ECOLI PCR (STOOL) NOT DETECTED NOT DETECTED 02/26/2025 5:00 PM CDT [facility] SHIG/ENTEROINVASIVE ECOLI PCR (STOOL) NOT DETECTED NOT DETECTED 02/26/2025 5:00 PM CDT [facility] CRYPTOSPORIDIUM PCR (STOOL) NOT DETECTED NOT DETECTED 02/26/2025 5:00 PM CDT [facility] CYCLOSPORA CAYETANENSIS PCR (STOOL) NOT DETECTED NOT DETECTED 02/26/2025 5:00 PM CDT [facility] ENTAMOEBA HISTOLYTICA PCR (STOOL) NOT DETECTED NOT DETECTED 02/26/2025 5:00 PM CDT [facility] GIARDIA LAMBLIA PCR (STOOL) NOT DETECTED NOT DETECTED 02/26/2025 5:00 PM CDT [facility] ADENOVIRUS F40/41 PCR (STOOL) NOT DETECTED NOT DETECTED 02/26/2025 5:00 PM CDT [facility] ASTROVIRUS PCR (STOOL) NOT DETECTED NOT DETECTED 02/26/2025 5:00 PM CDT [facility] NOROVIRUS GI/GII PCR (STOOL) NOT DETECTED NOT DETECTED 02/26/2025 5:00 PM CDT [facility] ROTAVIRUS A PCR (STOOL) NOT DETECTED NOT DETECTED 02/26/2025 5:00 PM CDT [facility] SAPOVIRUS PCR (STOOL) NOT DETECTED NOT DETECTED 02/26/2025 5:00 PM CDT [facility] STOOL SPECIMEN / Unknown 02/26/2025 4:52 AM CDT us Jax Hendrickson MD MICROBIOLOGY - GENERAL ORDERAB LES Final Result [facility] [address] [place] [address], * SODIUM URINE RANDOM (02/26/2025 12:32 AM CDT) NA RANDOM (U) 122 MMOL/L 02/26/2025 1:14 AM CDT [facility] Comment:REFERENCE RANGE NOT ESTABLISHED URINE SPECIMEN / Unknown 02/26/2025 12:32 AM CDT us Jax Hendrickson MD URINE ORDERABLES Final Result Performing Organization Address [facility] Co de Phone Number [facility] [address] [place] [address], [phone] * CREATININE URINE RANDOM (02/26/2025 12:32 AM CDT) CREATININE (U) 51.9 MG/DL 02/26/2025 1:14 AM CDT [facility] Comment:REFERENCE RANGE NOT ESTABLISHED URINE SPECIMEN / Unknown 02/26/2025 12:32 AM CDT Jax Hendrickson MD URINE ORDERABLES Final Result Performing Organization Address [facility] de Phone Number [facility] [address] [place] [address], [place] [phone] * (ABNORMAL) URINALYSIS (02/26/2025 12:32 AM CDT) COLOR (U) COLORLESS 02/26/2025 1:04 AM CDT [facility] TRANSPARENCY CLEAR 02/26/2025 1:04 AM CDT [facility] SPECIFIC GRAVITY (U) 1.012 1.002 - 1.035 02/26/2025 1:04 AM CDT [facility] U PH 7.5 5 - 8 02/26/2025 1:04 AM CDT [facility] PROTEIN RANDOM (U) 70(A) NEGATIVE 02/26/2025 1:04 AM CDT [facility] GLUCOSE (U) 300(A) NEGATIVE MG/DL 02/26/2025 1:04 AM CDT [facility] KETONES MG/DL (U) NEGATIVE NEGATIVE 02/26/2025 1:04 AM CDT [facility] BILIRUBIN (U) NEGATIVE NEGATIVE 02/26/2025 1:04 AM CDT [facility] BLOOD (U) TRACE(A) NEGATIVE 02/26/2025 1:04 AM CDT [facility] NITRITES NEGATIVE NEGATIVE 02/26/2025 1:04 AM CDT [facility] UROBILINOGEN NORMAL 0 - 1 EU/DL 02/26/2025 1:04 AM CDT [facility] LEUKOCYTES (U) NEGATIVE NEGATIVE 02/26/2025 1:04 AM CDT [facility] RBC/HPF 2 0 - 3 /HPF 02/26/2025 1:04 AM CDT [facility] WBC/HPF <1 0 - 6 /HPF 02/26/2025 1:04 AM CDT [facility] BACTERIA (U) NONE /HPF 02/26/2025 1:04 AM CDT [facility] SQUAMOUS EPITHELIALS 3 02/26/2025 1:04 AM CDT [facility] URINE SPECIMEN OBTAINED BY CLEAN CATCH PROCEDURE / Unknown 02/26/2025 12:32 AM CDT Jax Hendrickson MD URINE ORDERABLES Final Result [facility] [address] [place] [address], [id number] * CULTURE, URINE (02/26/2025 12:32 AM CDT) SPEC DESCRIPTION URINE CLEAN CATCH 02/26/2025 12:33 AM CDT [facility] SPECIAL REQUESTS NO SPECIAL REQUEST 02/26/2025 12:33 AM CDT [facility] CULTURE RESULT NO GROWTH (< OR = 1,000 CFU/ML) 02/27/2025 11:36 AM CDT [facility] URINE SPECIMEN OBTAINED BY CLEAN CATCH PROCEDURE / Unknown 02/26/2025 12:32 AM CDT 02/26/2025 1:13 AM CDT us Jax Hendrickson MD MICROBIOLOGY - GENERAL ORDERAB LES Final Result Performing Organization Address City/[facility]/ZIP Co de Phone Number [facility] [address] [place] [address], [place] [phone] * (ABNORMAL) PRO-BRAIN NATRIURETIC PEPTIDE (02/26/2025 12:30 AM CDT) PRO-B TYPE NATRIURETIC PEPTIDE 12,055(H) <125 PG/ML 02/26/2025 1:18 AM CDT [facility] Comment: AGE INDEPENDENT: <300 [...] MD LABORATORY Final Result Performing Organization Address [facility] Co de Phone Number [facility] [address] [place] [address], [place] [phone] * LACTIC ACID (02/26/2025 12:30 AM CDT) LACTIC ACID VENOUS 1.0 0.4 - 2.0 MMOL/L 02/26/2025 1:18 AM CDT [facility] 02/26/2025 12:3 0 AM CDT us Jax Hendrickson MD LABORATORY Final Result Performing Organization Address City/[facility]/ZIP Co de Phone Number [facility] [address] [place] [address], [place] [phone] * PHOSPHORUS, INORGANIC PHOSPHATE (02/26/2025 12:30 AM CDT) PHOSPHORUS 4.4 2.5 - 4.9 MG/DL 02/26/2025 1:18 AM CDT [facility] 02/26/2025 12:3 0 AM CDT Jax Hendrickson MD LABORATORY Final Result Performing Organization Address [facility] Co de Phone Number [facility] [address] [place] [address], [phone] * CULTURE, BACTERIA, BLOOD (02/26/2025 12:29 AM CDT) SPEC DESCRIPTION BLOOD 02/26/2025 12:01 AM CDT [facility] SPECIAL REQUESTS NO SPECIAL REQUEST 02/26/2025 12:01 AM CDT [facility] CULTURE RESULT NO GROWTH 5 DAYS 03/03/2025 12:56 AM CDT [facility] BLOOD SPECIMEN OBTAINED FOR BLOOD CULTURE / Unknown 02/26/2025 12:29 AM CDT 02/26/2025 12:30 AM CDT Jax Hendrickson MD MICROBIOLOGY - GENERAL ORDERAB LES Final Result Performing Organization Address [facility] Co de Phone Number [facility] [address] [place] [address], [phone] from Last [address] [facility] MEDICARE PART A MEDICAID * Guarantor: Deanna Madrid Account Type Relation to Patient Date of Phone Billing Address Aly Norman B3 Self 1965 [address] [place] [id number] Advance Directives Documents on File Type Date Recorded Patient Ep Tech Expl anation Advance Directives and Livin g [...] 7:49 PM 05/24/2023 7:09 PM Care Teams Supervisor Nut Processing Relationship Specialty Start Date End Date Destinee Rodriguez NP PCP - General NURSE PRACTITIONER 09/08/23
--- OUTSIDE RECORDS SUMMARY | 2025-03-05 06:25 | XMS_ITS | Encounter Summary ---
Author Organization [facility] Address [address] [place] [id number] Care Team Providers Care Cloth Checker Name Role Phone None, Provider MD Primary Care Provider Jyothi treviño Non-Staff, Provider Primary Care Provider Luis Manuel Osborne MD Primary Care Provider [phone] Destinee Rodriguez NP Primary Care Provider [phone] Reason for Referral * Surgical (Routine) - Closed Specialty Diagnoses / Procedures Referred By Contheena t Referred To Contact Diagnoses Osteomyelitis Procedures Case request operating room: BONE BIOPSY-FOOT Jaxon August MD [facility] [address] [place] [address] Phone: tel: fax: [place] [address] Phone: tel: Referral ID Status Reason Start Date Expiration Date Visits Re quested Visits Authorized [id number] Closed 03/09/2022 04/06/2023 1 1 Encounter Details Date Type Department Care Team (Late st Contact Info) Description 03/06/2022 Prep for Procedure [facility], [place] [place], [place] [phone] Jaxon August MD [facility]. [place] [address] [place] [address] Social History Tobacco Use Types Packs/Day Years Used Date Smoking Tobacco: Never Smokeless Tobacco: Never Comments Unknown Sex and Gender Information Value Date Recorded Sex Assigned at Female 10/22/2024 9:59 PM LAWN SPECIALIST Legal Sex Female 9:54 PM LAWN SPECIALIST Gender Identity Not on file Sexual [...] AM LIT Gómez Martin RN Active * [place] Suicide Severity Rating Scale (Screener/Recent Self-Report) Question Answer Date of Assessment Author Status 1. Wish to be (Past 1 Month) No 03/09/2022 10:52 AM CDT eParl Martin RN Active 2. Non-Specific Active Suicidal [...] Rule Out 10/22/2024 10/22/2024 10/22/2024 10:40 PM LAWN SPECIALIST Respiratory Rule Out 10/22/2024 10/22/2024 025 10:41 PM LAWN SPECIALIST documented as of this encounter Care Teams Cloth Checker Relationship Specialty Start Date End Date None, Provider, PCP - General 08/20/21 06/01/22 Non-Staff, Provider PCP - General UNKNOWN PHYSICIAN SPECIALTY 06/02/22 05/07/23 Luis Manuel Mccall MD [facility] [place] [address] PCP - General FAMILY PRACTICE 05/08/23 09/07/23 Destinee Rodriguez NP [facility] [place] [address] PCP - General NURSE PRACTITIONER 09/08/23 documented as of this encounter
--- OUTSIDE RECORDS SUMMARY | 2025-03-05 06:25 | XMS_ITS | Encounter Summary ---
Author Organization [facility] Address [address] [place] [id number] Care Team Providers Care [employer] Teacher Name Role Phone Destinee Rodriguez MULTICULTURAL SERVICES LIBRARIAN Primary Care Provider [phone] Encounter Details Date Type Department Care Team (Late st Contact Info) Description 09/17/2023 Hospital Follow-up Call [facility] [address] [place] [address] Xiomara Schmitt RN Social History [...] place to sleep or slept in a [place] facility (including now)? No 09/08/2023 Comments Unknown Sex and Gender Information Value Date Recorded Sex Assigned at Female 10/22/2024 9:59 PM CERTIFIED SURGICAL TECH/FIRST ASSISTANT Legal Sex Female 9:54 PM CERTIFIED SURGICAL TECH/FIRST ASSISTANT Gender Identity Not on file Sexual Orientation [...] Assessment Author Status No 09/08/2023 3:58 AM CERTIFIED SURGICAL TECH/FIRST ASSISTANT Ever Yancey RN Active documented as of this encounter Mental Status * Because of a physical, mental, or emotional condition, do you have serious difficulty concentrating, remembering, or making decisions? Answer Entry Date Author Status No 09/08/2023 3:58 AM CERTIFIED SURGICAL TECH/FIRST ASSISTANT Ever Yancey RN Active documented in this [...] Rule Out 10/22/2024 10/22/2024 10/22/2024 10:40 PM CERTIFIED SURGICAL TECH/FIRST ASSISTANT Respiratory Rule Out 10/22/2024 10/22/2024 025 10:41 PM CERTIFIED SURGICAL TECH/FIRST ASSISTANT documented as of this encounter Care Teams [employer] Teacher Relationship Specialty Start Date End Date Destinee Rodriguez NP PCP - General NURSE PRACTITIONER 09/08/23 documented as of this encounter
[2025-03-05 06:27] LABS: Budding Yeast Urine Present /hpf
--- NOTE | 2025-03-05 07:03 | PC.NURSE ---
patient given ice chips per request and ERP okay. patient spouse Hu phoned to provide update including plan for patient to be transferred however patient spouse did not answer. message left for Hu to phone for update information. patient report given to BERNIE Robertson for continuation of care on day shift. As RN typing this note patient spouse returned call. update provided and patient spouse states patient has been on dialysis in the past so they are familiar with it however pt is worried about not being able to go on several cruises they have planned if she requires dialysis. Hu updated and aware of plan for transfer to higher level of care for potential dialysis treatments/initiation.
[2025-03-05 08:03] VITALS: BP 144/71; PULSE 93; RESP 18; TEMP 35.9; O2SAT 99
--- NOTE | 2025-03-07 12:10 | PC.NURSE ---
FINAL UA RESULTS; MIXED UROGENITAL SIGRID; NO FURTHER ACTION OR TREATMENT NEEDED PER DR SANTA
== END 2025-03-05 08:37 | disposition short-term general hospital (02) ==
PROVIDERS: Emergency Provider Internal Medicine Critical Care Medicine
DX: I13.0 Hypertensive heart and chronic kidney disease with heart failure and stage 1 through stage 4 chronic kidney disease, or unspecified chronic kidney disease (principal); E11.22 Type 2 diabetes mellitus with diabetic chronic kidney disease; N18.4 Chronic kidney disease, stage 4 (severe); I50.9 Heart failure, unspecified; R11.2 Nausea with vomiting, unspecified; E78.5 Hyperlipidemia, unspecified; Z79.899 Other long term (current) drug therapy
CPT/HCPCS: 36415; 71045; 80053; 81001; 82550; 83605; 83690; 84100; 84484; 85025; 87086; 93005; 96360; 96372; 99285; J0780

== ENCOUNTER 2025-04-27 17:36 | Emergency (ER) | payer OTHER, MEDICAID, SELFPAY ==
[2025-04-27] VITALS (19 sets, daily range): BP systolic 120–220; BP diastolic 69–132; PULSE 87–104; RESP 18–20; TEMP 36.3–36.5; O2SAT 98–100
--- NOTE | ~2025-04-27 | CT_ITS ---
EXAMINATION: CT abdomen pelvis wo con DATE: 04/27/2025 19:16 INDICATION: Nausea, vomiting and diarrhea TECHNIQUE: Computed tomography (CT) of the abdomen and pelvis was performed without intravenous contrast. The dose-length product was 448.01 mGy-cm. COMPARISON: CT dated 02/25/2025. FINDINGS: Lung bases unremarkable. Heart size normal. No significant pleural or pericardial effusion. The liver, spleen, pancreas, adrenal glands and kidneys are unremarkable. There are bilateral renal arterial calcifications. There is atherosclerosis of the aorta. No aneurysm. Small hiatal hernia with thickening of the distal esophagus. Nonobstructive bowel gas pattern. There are fluid- filled small bowel loops in the left abdomen without transition point.Stable superior endplate compression fracture of T12, likely chronic. Mild lower thoracic and lumbar spondylosis. IMPRESSION: 1. Fluid-filled small bowel loops left midabdomen, suspicious for enteritis. 2: Small hiatal hernia with thickening of the distal esophagus, consistent with esophagitis. Reviewed, dictated and finalized at location [facility]. IMPRESSION: 1. Fluid-filled small bowel loops left midabdomen, suspicious for enteritis. 2: Small hiatal hernia with thickening of the distal esophagus, consistent wit h esophagitis.
--- NOTE | 2025-04-27 17:58 | ED.NAVMDI ---
HPI - Nausea/Vomiting/Diarrhea General Chief complaint: Nausea/Vomiting/Diarrhea Stated complaint: N/V Time Seen by Provider: 04/27/25 17:56 Source: patient and EMS Mode of arrival: EMS Limitations: no limitations (Patient is blind) History of Present Illness HPI Narrative: Patient is a 60-year-old female with nausea vomiting and diarrhea for the past 2 days. She is blind but EMS said they saw the vomit and it looked dark brown. No associated pain. MD elicited complaint: nausea, vomiting and diarrhea Pertinent past history: other (Hypertension, GERD, COPD) Onset (ago): day(s) (2) Description of vomiting: coffee grounds Description of diarrhea: watery Associated nausea: Yes Associated abdominal pain: No Location of pain: none Radiation: does not radiate Pain consistency: other (None) Severity: moderate Pain scale (0-10): 0 Quality: other (None) Exacerbating factors: none Relieving factors: none Context: other (Patient having nausea vomiting and diarrhea with some dark emesis for the past 2 days; she has not been eating; patient is blind) Associated symptoms: nausea/vomiting Treatment prior to arrival: none Related Data Home Medications ?Medication ?Instructions ?Recorded ?Confirmed ?Last Taken ?Type amlodipine 10 mg tablet 10 mg PO DAILY 12/18/24 02/17/25 Unknown History darbepoetin jeffrey-albumin 40 mcg/mL 40 mcg subcut MONTHLY PRN low hgb 12/18/24 02/25/25 Unknown History in albumin injection gabapentin 100 mg capsule 100 mg PO BID 12/18/24 02/17/25 Unknown History hydralazine 10 mg tablet 10 mg PO TID 12/18/24 02/17/25 Unknown History isosorbide dinitrate 10 mg tablet 20 mg PO BID 12/18/24 02/17/25 Unknown History sertraline 50 mg tablet 150 mg PO DAILY 12/18/24 02/17/25 Unknown History sodium bicarbonate 650 mg tablet 1,300 mg PO BID 12/18/24 02/17/25 Unknown History famotidine 40 mg tablet 40 mg PO Q12H 02/16/25 02/17/25 Unknown History aspirin 81 mg tablet,delayed 81 mg PO DAILY 02/17/25 02/17/25 Unknown History release (Adult Low Dose Aspirin) cholecalciferol (vitamin D3) 25 25 mcg PO DAILY 02/17/25 02/17/25 Unknown History mcg (1,000 unit) capsule (Vitamin D3) patiromer calcium sorbitex 8.4 8.4 g PO .ever 02/17/25 02/17/25 Unknown History gram oral powder packet metoclopramide HCl 5 mg tablet 5 mg PO Q8H PRN nausea and vomiting 02/25/25 Unknown History folic acid 1 mg tablet 1 mg PO DAILY 04/27/25 Unknown History Allergies Allergy/AdvReac Type Severity Reaction Status Date / Time No Known Allergies Allergy Unknown Verified 04/27/25 18:18 Review of Systems Review of Systems: All systems reviewed & are unremarkable except as noted in HPI and below Constitutional: Constitutional: Reports no additional constitutional complaints Eyes: Eyes: Reports no additional eye complaints ENT: Reports system reviewed and no additional complaints, except as documented Cardiovascular: Cardiovascular: Reports no additional cardiovascular complaints Respiratory: Respiratory: Reports no additional respiratory complaints Gastrointestinal: Gastrointestinal: Reports no additional gastrointestinal complaints Genitourinary: Genitourinary: Reports no additional female genitourinary complaints Musculoskeletal: Musculoskeletal: Reports no additional musculoskeletal complaints Integumentary/Breasts: Skin/Breast: Reports system reviewed and no additional complaints, except as docu Neurologic: Reports system reviewed and no additional complaints, except as documented Psychiatric: Psychiatric: Reports no additional psychiatric complaints Endocrine: Endocrine: Reports no additional endocrine complaints Hematologic/Lymphatic: Hematologic/Lymphatic: Reports no additional hematologic/lymphatic complaints Allergic/Immunologic: Allergic/Immunologic: Reports no additional allergic/immunologic complaints PMFSH Past Medical History Medical History Chronic anemia Erosive esophagitis Insulin dependent type 2 diabetes mellitus Chronic kidney disease, stage 4 (severe) 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 Code status: Full code. Smoking status: Never smoker Second hand tobacco smoke exposure: No Additional smoking assessment comments: Per patient her spouse smokes in the home. Alcohol intake: never Substance use: never Substance use type: does not use Do You Feel Safe in your Home?: Yes Lack of Transportation: No Lack of Food: Never True Current Housing: I Have Housing Concerned About Future Housing: No Difficulty Paying Gas/Electric Bills: No Difficulty Paying for Meds: No Currently Unemployed: No Education: Decline to Answer Difficulty w/ Childcare or Family Care: No Living arrangements: with family Additional living arrangements comments: Lives with in [place]. They have 2 grown children. Occupation/Education: retired Additional occupation/education comments: Was in the [employer]. Spiritual care concerns: No Agree to blood products: Yes Exam Const: General: ill appearing Nutritional Appearance: well nourished Orientation/consciousness: patient oriented x3 Limitations: no limitations (Patient is blind however) HENMT: Head: normal to inspection Ears: external ears normal Face/Nose/Sinus: Normal external nose present Neck: Neck: normal visual inspection Chest: Chest palpation & inspection: normal inspection of the chest Resp: Effort & Inspection: normal respiratory effort and not labored Auscultation: clear to auscultation bilaterally and no crackles Cardio: Rate: regular rate Rhythm: regular rhythm Heart sounds: no murmurs GI: Inspection: non-distended GI Palp: Yes Soft to palpation, No Tenderness to palpation present (GI), No Guarding due to palpation present (GI), No Rigid due to palpation, No Hernia present, No Palpable mass present and No Rebound tenderness present Auscultation: bowels sounds not normal and Hypoactive bowel sounds present : General: Yes bladder normal to palpation Back/Spine/Pelvis: Back: no CVA tenderness Skin: General skin exam: normal color Rashes: no rashes Wounds: no wounds Neuro: General: patient oriented x3, moves all extremities and no meningeal signs Extrem: General: normal to inspection, no clubbing, cyanosis or edema and no pedal edema Psych: Mental Status: mental status grossly normal Affect: normal affect Attitude: cooperative Course Vital Signs Vital signs: Vital Signs Temperature 36.3 C L 04/27/25 17:44 Pulse Rate 88 04/27/25 17:44 Respiratory Rate 20 04/27/25 17:44 Blood Pressure 181/101 H 04/27/25 17:44 Pulse Oximetry 100 04/27/25 17:44 Oxygen Delivery Room Air 04/27/25 17:44 Temperature 36.3 C L 04/27/25 17:44 Pulse Rate 89 04/27/25 20:31 Respiratory Rate 18 04/27/25 20:31 Blood Pressure 174/82 H 04/27/25 20:48 Pulse Oximetry 100 04/27/25 20:48 Oxygen Delivery Room Air 04/27/25 17:44 MDM - Nausea/Vomiting/Diarrhea MDM Narrative Medical decision making narrative: Patient is a 60-year-old female with nausea vomiting and diarrhea for the past 2 days. Will do GI workup at this time. Will include some cardiovascular rule out. Lab Data Attestation: I reviewed the patient's lab results. 04/27/25 18:57 04/27/25 21:13 Labs: Lab Results 04/27/25 04/27/25 04/27/25 Range/Units 18:57 21:13 21:22 WBC 9.8 (4.8-10.8) K/mm3 RBC 3.49 L (4.20-5.40) M/mm3 Hgb 10.0 L (12.0-15.0) g/dL Hct 32.1 L (35.0-49.0) % MCV 92.0 (78.0-102.0) fL MCH 28.7 (27.0-31.0) pg MCHC 31.2 L (32-36) g/dL RDW 14.2 (11.6-14.4) % Plt Count 340 (150-420) K/mm3 MPV 10.7 (9.2-11.8) fl Immature Gran % (Auto) 0.4 H (0.0-0.0) % Neut % (Auto) 88.7 H (50.0-70.0) % Lymph % (Auto) 7.8 L (18.0-42.0) % [place] % (Auto) 2.5 (2.0-11.0) % Eos % (Auto) 0.1 L (1.0-6.0) % Baso % (Auto) 0.5 (0.0-1.0) % Lymph # (Auto) 0.77 L (1.10-4.50) K/mm3 [place] # (Auto) 0.25 (0.10-0.90) K/mm3 Eos # (Auto) 0.01 L (0.02-0.50) K/mm3 Baso # (Auto) 0.05 (0.00-0.10) K/mm3 Abs Immat Gran (auto) 0.04 H (0.00-0.00) K/mm3 Absolute Neuts (auto) 8.71 H (1.70-7.20) K/mm3 Absolute Nucleated RBC 0.00 (0.00-0.00) K/mm3 Nucleated RBC % 0.0 (0-0.0) % PT 9.8 (9.50-12.1) Seconds INR 0.9 APTT 21.4 L (23.9-30.70) Sec Sodium 143 143 (137-145) mmol/L Potassium 5.1 H 4.8 (3.4-5.0) mmol/L Chloride 112 H 116 H (98-107) mmol/L Carbon Dioxide 13 L 12 L (22-30) mmol/L Anion Gap 18 H 15 H (4-12) mmol/L BUN 51 H D 47 H (7-17) mg/dL Creatinine 4.30 H 3.80 H (0.7-1.0) mg/dL Estim Creat Clear Calc 9 10 ml/min Estimated GFR 10 L 12 L (59 - ) Glucose 272 H 278 H (65-110) mg/dL Calculated Osmolality 319 H 318 H (285-295) mOsm/kg Lactic Acid 1.6 (0.4-2.0) mmol/L Calcium 9.6 8.4 (8.4-10.2) mg/dL Total Bilirubin 0.7 (0.2-1.3) mg/dL AST 20 (14-36) U/L ALT 13 (6-35) U/L Alkaline Phosphatase 123 (38-126) U/L Troponin I 0.014 (0.000-0.034) ng/mL Total Protein 8.3 H (6.3-8.2) g/dL Albumin 4.4 (3.5-5.1) g/dL Lipase 104 (23-300) U/L Acetone Level Negative (Negative) ABG Data ABG results: 04/27/25 21:13 VBG pH 7.45 H VBG pCO2 19.9 L* VBG pO2 121.1 H VBG HCO3 13.6 L O2 Delivery Device Room air O2 Liters/Min Not Reportable Imaging Data Attestation: I personally reviewed and interpreted this imaging study as follows: Radiologist's impression: CT scan of the abdomen and pelvis shows esophagitis and enteritis ECG Data EKG #1: Attestation: I personally reviewed and interpreted this ECG as follows: ECG completion date: 04/27/25 ECG completion time: 19:29 EKG Interpretation: normal rate, sinus rhythm, no ectopy, non-specific ST changes, widened QRS, LBBB (Chronic), normal QT, left axis and NL axis Discharge Plan Discharge Clinical Impression: Gastroenteritis, Dehydration, Metabolic acidosis, Coffee ground emesis, Esophagitis Acute on chronic kidney failure Qualifiers: Acute renal failure type: unspecified Chronic kidney disease stage: unspecified stage Qualified Code(s): N17.9 - Acute kidney failure, unspecified Patient Disposition: Acute Care Hospital Condition: Stable Patient Language: Cuban Prescriptions: No Action darbepoetin jeffrey-albumin 40 mcg/mL solution 40 mcg subcut MONTHLY PRN (Reason: low hgb) Rx Instructions: give if hgb is less than 10 isosorbide dinitrate 10 mg tablet 20 mg PO BID sertraline 50 mg tablet 150 mg PO DAILY amlodipine 10 mg tablet 10 mg PO DAILY gabapentin 100 mg capsule 100 mg PO BID sodium bicarbonate 650 mg tablet 1,300 mg PO BID Rx Instructions: 2 tabs BID hydralazine 10 mg tablet 10 mg PO TID famotidine 40 mg tablet 40 mg PO Q12H metoclopramide HCl 5 mg tablet 5 mg PO Q8H PRN (Reason: nausea and vomiting) folic acid 1 mg tablet 1 mg PO DAILY pantoprazole 40 mg Tablet,Delayed Release (Dr/Ec) 40 mg PO Q12HR Qty: 60 0RF patiromer calcium sorbitex 8.4 gram powder in packet 8.4 g PO .ever aspirin [Adult Low Dose Aspirin] 81 mg tablet,delayed release (DR/EC) 81 mg PO DAILY cholecalciferol (vitamin D3) [Vitamin D3] 25 mcg (1,000 unit) capsule 25 mcg PO DAILY ipratropium-albuterol 0.5 mg-3 mg(2.5 mg base)/3 mL Solution For Nebulization 3 ml inhalation Q6HRT PRN (Reason: Shortness Of Breath Or Wheezing) Qty: 30 0RF polyethylene glycol 3350 [Miralax] 17 gram Powder In Packet 17 g PO NOON Qty: 14 0RF Follow-up/Referrals: UNKNOWN,DOCTOR [Primary Care Provider] Time of Disposition: 20:30
--- NOTE | 2025-04-27 18:25 | ECG_ITS ---
Test Date: 2025-04-27 18:45:33 Measurements Intervals [place] Rate: 89 P: 71 VT: 190 QRS: 2 QRSD: 140 T: 105 QT: 406 QTc: 495 Interpretive Statements SINUS RHYTHM LEFT BUNDLE BRANCH BLOCK [120+ ms QRS DURATION, 80+ ms Q/S IN V1/V2, 85+ ms R IN I/aVL/V5/V6] ABNORMAL ELECTROCARDIOGRAM Compared to ECG 03/05/2025 06:10:11 No significant changes Electronically Signed On 04-29-2025 16:32:04 CDT by Ghulam Lim M.D.
[2025-04-27] MEDS: SODIUM CHLORIDE 0.9% IV 1,000 ML 999 ML IV CONT ×2 (18:45→20:50)
[2025-04-27] MEDS: PANTOPRAZOLE SODIUM IV 40 MG VIAL 80 MG IV PUSH (18:45)
[2025-04-27] MEDS: ONDANSETRON INJ 4 MG/2 ML VIAL IV PUSH (18:46)
[2025-04-27 19:03] LABS: Hematocrit 32.1 % (35.0-49.0); Hemoglobin 10.0 g/dL (12.0-15.0); Immature Granulocyte Percent A 0.4 % (0.0-0.0); Lymphocytes Absolute Auto 0.77 K/mm3 (1.10-4.50); Mean Corpuscular HGB Conc 31.2 g/dL (32-36); Mean Corpuscular Hemoglobin 28.7 pg (27.0-31.0); Mean Corpuscular Volume 92.0 fL (78.0-102.0); Nucleated Red Blood Cells Absolute Auto 0.00 K/mm3 (0.00-0.00); Nucleated Red Blood Cells Perc 0.0 % (0-0.0); Platelet Count Result 340 K/mm3 (150-420); Red Blood Count 3.49 M/mm3 (4.20-5.40); White Blood Count 9.8 K/mm3 (4.8-10.8)
[2025-04-27 19:16] LABS: Alanine Aminotransferase 13 U/L (6-35); Albumin Level 4.4 g/dL (3.5-5.1); Alkaline Phosphatase 123 U/L (38-126); Anion Gap 18 mmol/L (4-12); Aspartate Amino Transferase 20 U/L (14-36); Bilirubin,Total 0.7 mg/dL (0.2-1.3); Blood Urea Nitrogen 51 mg/dL (7-17); Calcium 9.6 mg/dL (8.4-10.2); Carbon Dioxide 13 mmol/L (22-30); Chloride 112 mmol/L (98-107); Estimated CRCL calculation 9 ml/min; Estimated Glomerular Filt Rate 10; Glucose 272 mg/dL (65-110); Lipase 104 U/L (23-300); Osmolality Calculated 319 mOsm/kg (285-295); Potassium 5.1 mmol/L (3.4-5.0); Sodium 143 mmol/L (137-145); Total Protein 8.3 g/dL (6.3-8.2)
--- NOTE | 2025-04-27 19:17 | PC.NURSE ---
Report received, pt back from CT, pt still c/o nausea and has dry heaves. Noted BP elevated, pt states she was unable to take her BP medicine due to vomiting all day. ERP Dr Singh notified for pts elevated BP and nausea.
[2025-04-27 19:21] LABS: INR 0.9; Partial Thromboplastin Time 21.4 Sec (23.9-30.70); Prothrombin Time 9.8 Seconds (9.50-12.1)
[2025-04-27 19:28] LABS: Troponin I 0.014 ng/mL (0.000-0.034)
[2025-04-27] MEDS: METOCLOPRAMIDE HCL INJ 10 MG/2 ML VIAL IV PUSH (19:32)
--- NOTE | 2025-04-27 20:29 | PC.NURSE ---
POC discussed for transfer to [facility], updated pts .
[2025-04-27 21:16] LABS: HCO3 VBG 13.6 mEq/l (24.0-30.0); PO2 VBG 121.1 mmHg (35.0-45.0); pH VBG 7.45 (7.33-7.43)
[2025-04-27 21:24] LABS: PCO2 VBG 19.9 mmHg (42.0-48.0)
[2025-04-27 21:33] LABS: Anion Gap 15 mmol/L (4-12); Blood Urea Nitrogen 47 mg/dL (7-17); Calcium 8.4 mg/dL (8.4-10.2); Carbon Dioxide 12 mmol/L (22-30); Chloride 116 mmol/L (98-107); Estimated CRCL calculation 10 ml/min; Estimated Glomerular Filt Rate 12; Glucose 278 mg/dL (65-110); Osmolality Calculated 318 mOsm/kg (285-295); Potassium 4.8 mmol/L (3.4-5.0); Sodium 143 mmol/L (137-145)
--- NOTE | 2025-04-27 22:34 | PC.NURSE ---
Pt now sleeping on her side, VSS, report called to Tim for transfer.
--- NOTE | 2025-04-27 22:51 | PC.NURSE ---
Report given to Sita Hairston at [facility].
== END 2025-04-27 23:17 | disposition short-term general hospital (02) ==
PROVIDERS: Emergency Provider Emergency Medicine
DX: K52.9 Noninfective gastroenteritis and colitis, unspecified (principal); E86.0 Dehydration; E87.20 Acidosis, unspecified; N17.9 Acute kidney failure, unspecified; K20.90 Esophagitis, unspecified without bleeding; E78.5 Hyperlipidemia, unspecified; I13.0 Hypertensive heart and chronic kidney disease with heart failure and stage 1 through stage 4 chronic kidney disease, or unspecified chronic kidney disease; E11.22 Type 2 diabetes mellitus with diabetic chronic kidney disease; N18.4 Chronic kidney disease, stage 4 (severe); I50.9 Heart failure, unspecified
CPT/HCPCS: 36415; 74176; 80048; 80053; 82010; 82803; 83605; 83690; 84484; 85025; 85610; 85730; 93005; 96361; 96374; 96375; 99285; J0360; J2405; J2470; J2765; J7030

== ENCOUNTER 2025-04-28 00:15 | Inpatient (IN) | payer OTHER, MEDICAID, SELFPAY ==
[2025-04-27 23:50] VITALS: BP 164/87; PULSE 101; RESP 16; TEMP 36.9; O2SAT 99; BMI 21.3
[2025-04-28] VITALS (13 sets, daily range): BP systolic 100–142; BP diastolic 44–84; PULSE 80–110; RESP 14–20; TEMP 36.2–36.9; O2SAT 100; BMI 21.3
--- NOTE | ~2025-04-28 | CT_ITS ---
EXAMINATION: CT brain wo con DATE: 05/04/2025 03:00 INDICATION: Fall TECHNIQUE: Computed tomography (CT) of the head was performed without intravenous contrast. Sagittal and coronal reconstructions were performed. The mA was adjusted according to patient size. Iterative reconstruction technique was employed. The dose-length product was 983.67 mGy-cm. COMPARISON: None FINDINGS: No fracture. Small old lacunar infarct in the right parietal lobe. No acute intracranial hemorrhage, acute infarction or abnormal extra axial fluid collection. There is moderate scattered white matter hypoattenuation consistent with chronic small vessel ischemic disease. Ventricles are normal and symm etric. No mass/mass effect. Mild mucosal thickening bilateral ethmoid sinuses. The orbits and mastoid air cells are normal. Intracranial calcified cerebral atherosclerosis is noted at the bilateral carotid siphons. IMPRESSION: 1. No fracture or acute intracranial process. 2. Small old lacunar infarct at the right parietal lobe and moderate scattered white matter hypoattenuation consistent with chronic small vessel ischemic disease. Reviewed, dictated and finalized at location A. IMPRESSION: 1. No fracture or acute intracranial process. 2. Small old lacunar infarct at the right parietal lobe and moderate scattered white matter hypoattenuation consistent with chronic small vessel ischemic dise ase.
--- NOTE | ~2025-04-28 | CT_ITS ---
EXAMINATION: CT tibia/fibula RT wo con DATE: 05/04/2025 10:05 INDICATION: Fall. TECHNIQUE: Computed tomography (CT) of the right tibia and fibula was performed without intravenous contrast. Automated exposure control and iterative reconstruction technique were employed. The dose-length product was 450.98 mGy-cm. COMPARISON: Right knee radiographs 05/03/25 FINDINGS: There is a below-knee amputation. Alignment is normal. No fracture. There is severe osteoarthritis of medial and patellofemoral compartments and mild osteoarthritis of lateral compartment. No knee joint effusion. IMPRESSION: 1. No fracture. 2. Severe right knee osteoarthritis. Reviewed, dictated and finalized at location K.
--- NOTE | ~2025-04-28 | XR_ITS ---
EXAMINATION: XR_[id number]_CR, 05/03/2025 16:50 CDT HISTORY: fall COMPARISON: No comparisons available. Findings: Moderate osteopenia. No fracture or dislocation Prosthesis intact. Soft tissues unremarkable. Impression: No acute fracture or malalignment. Reviewed, dictated and finalized at location A. Impression: No acute fracture or malalignment.
--- NOTE | ~2025-04-28 | US_ITS ---
EXAMINATION: US renal BI DATE: 04/28/2025 16:53 CDT INDICATION: ARACELIS TECHNIQUE: Multiple static grayscale images and color Doppler images were obtained of the kidneys. COMPARISON: None. FINDINGS: This study is limited due to overlying bowel gas and the patient's imaging characteristics. Right kidney measures 8.4 x 5.2 x 4.7 cm and is mildly hyperechoic suggestive of medical renal disease. No hydronephrosis. Left kidney measures 7.9 x 5.6 x 4.4 cm. No left-sided hydronephrosis. The bladder is not fully visualized. Visualized bladder is unremarkable. IMPRESSION: 1. No hydronephrosis. 2. Right kidney is mildly hyperechoic suggestive of medical renal disease. 3. Limited study as above. If symptoms persist or worsen, consider a short-term follow-up study or additional imaging for further assessment. Reviewed, dictated and finalized at location Q. IMPRESSION: 1. No hydronephrosis. 2. Right kidney is mildly hyperechoic suggestive of medical renal disease. 3. Limited study as above. If symptoms persist or worsen, consider a short-term follow-up study or additio nal imaging for further assessment.
--- NOTE | ~2025-04-28 | XR_ITS ---
EXAMINATION: XR tibia fibula LT 2V, 05/03/2025 16:50 CDT HISTORY: Fall COMPARISON: No comparisons available. Findings: Moderate osteopenia. No acute fracture is identified. Prosthesis intact. Severe degenerative changes of the ankle joint. Soft tissues unremarkable. Impression: No acute fracture or malalignment. Reviewed, dictated and finalized at location A. Impression: No acute fracture or malalignment.
--- NOTE | ~2025-04-28 | XR_ITS ---
EXAMINATION: XR_KNEE1-2VRT_CR, 05/03/2025 16:50 CDT HISTORY: fall COMPARISON: No comparisons available. Findings: Moderate osteopenia. Amputation of the distal leg is noted, no osseous destruction identified. There are subtle nondisplaced fracture suspected of the proximal tibia and fibula. Severe tricompartmental degenerative changes. Soft tissues unremarkable. Impression: Nondisplaced fractures of the proximal tibia and fibula suspected. CT recommended Reviewed, dictated and finalized at location A. Impression: Nondisplaced fractures of the proximal tibia and fibula suspected. CT recommend ed
--- NOTE | ~2025-04-28 | XR_ITS ---
EXAMINATION: XR hip BI 2V w AP pelvis, 05/03/2025 16:50 CDT HISTORY: Fall, best images obtained due to pt condition COMPARISON: No comparisons available. Findings: No acute fracture or malalignment. Right arthroplasty intact, the distal implant is not visualized. Severe left- sided degenerative changes Soft tissues unremarkable. Impression: No acute fracture or malalignment. Reviewed, dictated and finalized at location A. Impression: No acute fracture or malalignment.
--- NOTE | 2025-04-28 00:11 | ADMGEN ---
This patient, Deanna Partida, was admitted to IMU Room 213-01. Patient/family oriented to hospital policies and general routines including ID bracelet, bed and alarms, visiting hours, pain management, procedures, bathroom and other care routines, personal items, smoking policy, room service/diet, and visiting hours. Information on how to activate the Rapid Response Team has been discussed. Patient/Family are encouraged to report perceived risks to care and to ask questions if they do not understand what they are told or what they should do.
--- OUTSIDE RECORDS SUMMARY | 2025-04-28 00:29 | XMS_ITS | Clinical Summary ---
Author Organization [facility] Address [address] [place] [address] Care Team Providers Care Roof Service Technician Name Role Phone Destinee Rodriguez PASTRY WRAPPER Primary Care Provider [phone] Allergies No known active allergies Medications amLODIPine [...] Active sodium bicarbonate 650 MG tablet Take 2 tablets (1,300 mg total) by mouth 2 (two) times daily. 2 tabs morning & night Active vitamin [...] (50 mg total) by mouth daily. Active folic acid (FOLVITE) 1 MG tablet [...] Active Problems Problem Noted Date Diagnosed Date Metabolic acidosis 03/05/2025 Acute on chronic kidney failure 02/25/2025 Pneumonia 10/23/2024 Acute renal failure (ARF) 08/14/2024 Congestive heart failure wit h left ventricular diastolic dysfunction ([facility]/HCC HHS/HCC) 09/13/2023 Hypoxic respiratory failure ([facility]/HCC HHS/HCC) Fracture of femoral neck, right ([facility] HHS/HCC ) 05/04/2023 Osteomyelitis ([facility]/HCC HHS/HCC) 02/26/2022 Encounters Date Type Department Care Team Description 03/05/2025 9:53 AM CDT - 03/08/2025 12:19 PM CDT Hospital Encounter [facility] [address] [place] [address] Dc Ramos MD Minhas, Irfan Ul Haq, MD Cheema, Asad M, MD Discharge Disposition: Home or Self Care (Routine Discharge) 03/05/2025 Travel 02/26/2025 Travel 02/25/2025 11:40 PM CDT - 02/27/2025 1:45 PM CDT Hospital Encounter [facility] [address] [place] [address] Sunny Tran MD Shackour, Salim, MD Mahmoud, [...] drink = 0.6 oz pur e alcohol) [id number] Health Literacy Answer Date Recor ded How often do you need to hav e someone help you when you read instructions, pamphlets, or other written material from your doctor or pharmacy? Never 03/05/[address] [facility] Utilities Answer Date Recorded In the past 12 months has e [email or web address], gas, oil, or water [employer] threatened to shut off services in your home? No 03/05/2025 Humiliation, Afraid, Rape, and Kick questionnair e Answer Date Recorded Within the last year, have y ou been afraid of your partner or ex-partner? No 03/05/2025 Within the last year, have y ou been humiliated or emotionally abused in other ways by your partner or ex-partner? No Within the last year, have y ou been kicked, hit, slapped, or otherwise physically hurt by your partner or ex-partner? No 03/05/2025 Within the last year, have y ou been raped or forced to have any kind of sexual activity by your partner or ex-partner? No 03/05/2025 Social Connection and Isolation Panel [NHANES] A nswer Date Recorded In a typical week, how many times do you talk on the phone with family, friends, or neighbors? Never 03/05/2025 How often do you get together with friends or re latives? Never 03/05/2025 How often do you attend religion or taoist serv ices? Never 03/05/2025 Do you belong to any clubs o r organizations such as religion groups, unions, fraternal or athletic groups, or school groups? No 03/05/2025 How often do you attend meet ings of the clubs or organizations you belong to? Never 03/05/2025 Are you , , di vorced, , never , or living with a partner? 03/05/2025 AUDIT-C Answer Date Recorded Q1: How often do you have a drink containing alcohol? Never 03/05/2025 Q2: How many drinks containi ng alcohol do you have on a typical day when you are drinking? Patient does not drink Q3: How often do you have si x or more drinks on one occasion? Never 03/05/2025 Overall Financial Resource Strain (CARDIA) Answe r Date Recorded How hard is it for you to pa y for the very basics like food, housing, medical care, and heating? Not hard at all 03/05/2025 [facility] - Occupational Stress Questionnaire Answer Date Recorded Do you feel stress - tense, restless, nervous, or anxious, or unable to sleep at night because your mind is troubled all the time - these days? Not at all 03/05/2025 Exercise Vital Sign Answer Date Recorde d On average, how many days pe r week do you engage in moderate to strenuous exercise (like a brisk walk)? 0 days Minutes of Exercise per Session Not on file 03/05/2025 Hunger Vital Sign Answer Date Recorded Within the past 12 months, y ou worried that your food would run out before you got the money to buy more. Never true 03/05/20 25 Within the past 12 months, t he food you bought just didn't last and you didn't have money to get more. Never true 03/05/2025 PRAPARE - Transportation Answer Date Re corded In the past 12 months, has l ack of transportation kept you from medical appointments or from getting medications? No 02/17 In the past 12 months, has l ack of transportation kept you from meetings, work, or from getting things needed for daily living? No 03/05/2025 Housing Stability Vital Sign Answer Jose e [...] place to sleep or slept in a fpc (including now)? No 09/08/2023 Housing Stability Vital Sign Answer Jose e Recorded In the last 12 months, was t here a time when you were not able to pay the mortgage or rent on time? No 03/05/2025 In the past 12 months, how m any times have you moved where you were living? 0 03/05/2025 At any time in the past 12 m [facility], were you homeless or living in a fpc (including now)? No 03/05/2025 Comments No Sex and Gender Information Value Date Recorded Sex Assigned at Female 10/22/2024 9:59 PM FUND CONTROLLER Legal Sex Female 9:54 PM FUND CONTROLLER Gender Identity Not on file Sexual Orientation Not on file Last Filed Vital Signs Vital Sign Reading Time Taken Comments Blood Pressure 144/58 03/08/2025 7:12 AM CDT Pulse 79 03/08/2025 7:12 AM CDT Temperature 36.6 C (97.9 F) 03/08/2025 7:12 AM CDT Respiratory Rate 17 03/08/2025 7:12 AM CDT Oxygen Saturation 97% 03/08/2025 7:12 AM CDT Inhaled Oxygen Concentration - - Weight 51 kg (112 lb 7 oz) 03/08/2025 7:00 AM CD T Height 152.4 cm (5') 03/06/2025 8:01 AM CDT Body Mass Index 21.96 03/06/2025 8:01 AM CDT Plan of Treatment Health Maintenance Due Date Last Done Comments Cervical Cancer Screening Pap Smear (Age 30 to 64) Every 3 Years 1963 Colorectal Cancer Screening Colonoscopy (10 Years) 1963 Annual Physical 1966 Hepatitis C 1981 Cervical Cancer Screening Pap with HPV Testing (Age 30 to 64) Every 5 Years 1993 Cervical Cancer Screening with HPV 1993 Mammogram Screening 2003 Zoster Vaccines (1 of 2) 2013 RSV Immunization or 60+ Years (1 - Risk 60-74 years 1-dose series) 2023 DTaP, Tdap and Td Vaccines (2 - Td or Tdap) 10/21/2024 10/21/2014 COVID-19 Vaccine ( season) 2025 06/21/2023, 01/31/2022, 07/19/2021, Additional history exists Pneumococcal Vaccine: 50+ Years Completed 01/10/2022, 02/08/2016 Meningococcal B Vaccine Aged Out No l [...] Colón RN Medical Devices Implanted Type Area Log Processor Operator Device Identifier Shelf Expiration Date Model / Serial / Lot Cement Bone Biomet 40gm - [id number] Implanted:Qty: 2 on 05/05/2023 by Idris Almanza MD at [facility] Cement Implant Right: Hip [employer] 08/19/2025 [id number] / / Plug Cement Kvng Gabriel Medullary 20mm - [id number] Implanted:Qty: 1 on 05/05/2023 by Idris Almanza MD at [facility] Cement Implant Right: Hip [employer] 01/11/2027 [id number] / / Shell Kvng Bipolar 41mm Od - [id number] Implanted:Qty: 1 on 05/05/2023 by Idris Almanza MD at [facility] Hip Components Right: Hip [employer] 12/17/2025 [id number] / / Liner Kvng Bipolar Hip 22 Id 40/41mm - [id number] Implanted:Qty: 1 on 05/05/2023 by Idris Almanza MD at [facility] Hip Components Right: Hip [employer] 08/19/2025 [id number] / / [id number] Implanted:Qty: 1 on 05/05/2023 by Idris Almanza MD at [facility] Right: Hip [employer] 08/25/2027 [id number] / / Femoral Head Implanted:Qty: 1 on 05/05/2023 by Idris Almanza MD at [facility] Right: Hip [employer] 09/15/2031 [id number] / / Explanted Type Area Log Processor Operator Device Identifier Shelf Expiration Date Model / Serial / Lot System Bone Cement 1 2 Mix - [id number] Explanted:Qty: 1 on 05/05/2023 by Idris Almanza MD at [facility] Cement Implant Right: Hip [employer] 12/21/2025 [id number] / / Femoral Cement Preparation Kit Explanted:Qty: 1 on 05/05/2023 by Idris Almanza MD at [facility] Right: Hip [employer] 11/25/2027 [id number] / / Procedures Procedure Name Priority Date/Time Associated Diagnosis Comments POCT GLUCOSE - DOCKED DEVICE Routine 03/08/2025 10:43 AM CDT POCT GLUCOSE - DOCKED DEVICE Routine 03/08/2025 5:59 AM CDT POCT GLUCOSE - DOCKED DEVICE Routine 03/08/2025 12:07 AM CDT POCT GLUCOSE - DOCKED DEVICE Routine 03/07/2025 8:25 PM CDT POCT GLUCOSE - DOCKED DEVICE Routine 03/07/2025 4:19 PM CDT POCT GLUCOSE - DOCKED DEVICE Routine 03/07/2025 10:55 AM CDT POCT GLUCOSE - DOCKED DEVICE Routine 03/07/2025 5:21 AM CDT BASIC METABOLIC PANEL Routine 03/07/2025 3:46 AM CDT CBC W/DIFF AUTOMATED Routine 03/07/2025 3:46 AM CDT POCT GLUCOSE - DOCKED DEVICE Routine 03/06/2025 8:27 PM CDT POCT GLUCOSE - DOCKED DEVICE Routine 03/06/2025 4:17 PM CDT POCT GLUCOSE - DOCKED DEVICE Routine 03/06/2025 11:33 AM CDT POCT GLUCOSE - DOCKED DEVICE Routine 03/06/2025 5:51 AM CDT COMPREHENSIVE METABOLIC PANEL Routine 03/06/2025 4:11 AM CDT CBC W/DIFF AUTOMATED Routine 03/06/2025 4:11 AM CDT POCT GLUCOSE - DOCKED DEVICE Routine 03/05/2025 7:27 PM CDT XR ABD KUB Today 03/05/2025 6:00 PM CDT HC URINALYSIS AUTO W/MICRO Nurse Collected Priority 03/05/2025 5:48 PM CDT HC PROTEIN TOTAL URINE Nurse Collected Priority 03/05/2025 5:48 PM CDT URINE BACTERIA CULTURE Nurse Collected Priority 03/05/2025 3:54 PM CDT SODIUM URINE RANDOM Nurse Collected Priority 03/05/2025 3:54 PM CDT POCT GLUCOSE - DOCKED DEVICE Routine 03/05/2025 3:53 PM CDT PTH - INTACT Routine 03/05/2025 2:43 PM CDT BASIC METABOLIC PANEL Routine 03/05/2025 2:43 PM CDT CBC W/DIFF AUTOMATED Routine 03/05/2025 2:43 PM CDT HEMOGLOBIN, GLYCOSYLATED Routine 03/05/2025 2:43 PM CDT PROTHROMBIN TIME, VENOUS Routine 03/05/2025 2:43 PM CDT PARTIAL THROMBOPLASTIN TIME,PTT Routine 03/05/2025 2:43 PM CDT POCT GLUCOSE - DOCKED DEVICE Routine 03/05/2025 11:54 AM CDT POCT GLUCOSE - DOCKED DEVICE [...] 3 Months Results * (ABNORMAL) POCT glucose (03/08/2025 10:43 AM CDT) Only the most recent of19 resultswithin the time period is included. GLUCOSE POC 147(H) 70 - 109 03/08/2025 10:44 AM CDT [facility] 03/08/2025 10:4 3 AM CDT us Jesse Cullen MD POCT ORDERABLES - DEVICE Final Result [facility] [address] [place] [address], [id number] * (ABNORMAL) BASIC METABOLIC PANEL (03/07/2025 3:46 AM CDT) Only the most recent of2 resultswithin the time period is included. SODIUM S/P/B 136 136 - 145 MMOL/L 03/07/2025 4:45 AM CDT [facility] POTASSIUM S/P/B 4.7 3.5 - 5.1 MMOL/L 03/07/2025 4:45 AM CDT [facility] CHLORIDE S/P/B 106 97 - 115 MMOL/L 03/07/2025 4:45 AM CDT [facility] CO2 25.2 21.0 - 32.0 MMOL/L 03/07/2025 4:45 AM CDT [facility] GLUCOSE 129(H) 74 - 106 MG/DL 03/07/2025 4:45 AM CDT [facility] BUN 44(H) 7 - 18 MG/DL 03/07/2025 4:45 AM CDT [facility] CREATININE S/P/B 3.71(H) 0.55 - 1.02 MG/DL 03/07/2025 4:45 AM CDT [facility] CALCIUM S/P/B 8.4(L) 8.5 - 10.1 MG/DL 03/07/2025 4:45 AM CDT [facility] ANION GAP 4.8 2.0 - 10.0 MMOL/L 03/07/2025 4:45 AM CDT [facility] OSMOLALITY (CALC) 295 MOSM/KG 025 4:45 AM CDT [facility] Comment:REFERENCE RANGE NOT ESTABLISHED GFR ESTIMATE 13(L) >90 ML/MIN/1. 73 M2 03/07/2025 4:45 AM CDT [facility] GFR NOTES GFR REFERENCE S: 03/07/2025 4:45 AM CDT [facility] Comment: THE ESTIMATED GFR IS [...] ml/min/1.73 m2 G5,KIDNEY FAILURE: <15 ml/min/1.73 m2 03/07/2025 3:46 AM CDT us Irfan Ul Edgardo Weeks MD LABORATORY Final Res ult [facility] [address] [place] [address], [id number] * (ABNORMAL) CBC W/DIFF AUTOMATED (03/07/2025 3:46 AM CDT) Only the most recent of5 resultswithin the time period is included. WBC 7.47 4.00 - 10.80 x10'3/uL 03/07/2025 4:10 AM CDT [facility] RBC 3.43(L) 4.10 - 5.40 x10'6/uL 03/07/2025 4:10 AM CDT [facility] HGB 9.6(L) 12.0 - 16.0 G/DL 03/07/2025 4:10 AM CDT [facility] HCT 30.0(L) 36.0 - 47.0 % 03/07/2025 4:10 AM CDT [facility] MCV 87.5 78.0 - 100.0 FL 03/07/2025 4:10 AM CDT [facility] MCH 28.0 27.0 - 31.0 PG 03/07/2025 4:10 AM CDT [facility] MCHC 32.0(L) 33.0 - 36.0 G/DL 03/07/2025 4:10 AM CDT [facility] RDW 14.7(H) 11.5 - 14.5 % 03/07/2025 4:10 AM CDT [facility] PLT 344 150 - 350 x10'3/uL 03/07/2025 4:10 AM CDT [facility] MPV 10.9(H) 7.4 - 10.4 FL 03/07/2025 4:10 AM CDT [facility] DIFFERENTIAL TYPE AUTOMATED DIFFERENTIAL 03/07/2025 4:10 AM CDT [facility] SEG NEUTROPHILS 39.8 % 4:10 AM CDT [facility] LYMPHOCYTES 47.8 % 03/07/2025 4:10 AM CDT [facility] MONOCYTES 9.4 % 03/07/2025 4:10 AM CDT [facility] EOSINOPHILS 2.0 % 03/07/2025 4:10 AM CDT [facility] BASOPHILS 0.9 % 03/07/2025 4:10 AM CDT [facility] IMMATURE GRANS % 0.1 % 03/07/20 4:10 AM CDT [facility] ABS. NEUTROPHILS 2.97 1.60 - 8.30 x10'3/uL 03/07/2025 4:10 AM CDT [facility] ABS. LYMPHOCYTES 3.57 0.80 - 4.70 x10'3/uL 03/07/2025 4:10 AM CDT [facility] ABS. MONOCYTES 0.70 0.00 - 1.50 x10'3/uL 03/07/2025 4:10 AM CDT [facility] ABS. EOSINOPHILS 0.15 0.00 - 0.40 x10'3/uL 03/07/2025 4:10 AM CDT [facility] ABS. BASOPHILS 0.07 0.00 - 0.20 x10'3/uL 03/07/2025 4:10 AM CDT [facility] ABS. IMMATURE GRANULOCYTES 0.01 0.00 - 0.03 x10'3/uL 03/07/2025 4:10 AM CDT [facility] ABS. NUCLEATED RBC'S 0.00 0.00 - 0.01 x10'3/uL 03/07/2025 4:10 AM CDT [facility] NRBC % 0.0 % 03/07/2025 4:10 AM CDT [facility] 03/07/2025 3:46 AM CDT us Irfan Ul Edgardo Weeks MD LABORATORY Final Res ult [facility] [address] [place] [address], [id number] * (ABNORMAL) COMPREHENSIVE METABOLIC PANEL (03/06/2025 4:11 AM CDT) Only the most recent of3 resultswithin the time period is included. SODIUM S/P/B 137 136 - 145 MMOL/L 03/06/2025 5:20 AM CDT [facility] POTASSIUM S/P/B 4.2 3.5 - 5.1 MMOL/L 03/06/2025 5:20 AM CDT [facility] CHLORIDE S/P/B 109 97 - 115 MMOL/L 03/06/2025 5:20 AM CDT [facility] CO2 21.9 21.0 - 32.0 MMOL/L 03/06/2025 5:20 AM CDT [facility] GLUCOSE 104 74 - 106 MG/DL 03/06/2025 5:20 AM CDT [facility] BUN 36(H) 7 - 18 MG/DL 03/06/2025 5:20 AM CDT [facility] CREATININE S/P/B 3.45(H) 0.55 - 1.02 MG/DL 03/06/2025 5:20 AM CDT [facility] CALCIUM S/P/B 8.3(L) 8.5 - 10.1 MG/DL 03/06/2025 5:20 AM CDT [facility] BILIRUBIN TOTAL S/P/B 0.4 0.2 - 1.0 MG/DL 03/06/2025 5:20 AM CDT [facility] ALKALINE PHOSPHATASE S/P/B 95 50 - 130 U/L 03/06/2025 5:20 AM CDT [facility] AST 14(L) 15 - 37 U/L 03/06/2025 5:20 AM CDT [facility] ALT 9(L) 13 - 56 U/L 03/06/2025 5:20 AM CDT [facility] TOTAL PROTEIN S/P/B 5.8(L) 6.4 - 8.2 G/DL 03/06/2025 5:20 AM CDT [facility] ALBUMIN S/P/B 2.4(L) 3.4 - 5.0 G/DL 03/06/2025 5:20 AM CDT [facility] ANION GAP 6.1 2.0 - 10.0 MMOL/L 03/06/2025 5:20 AM CDT [facility] OSMOLALITY (CALC) 293 MOSM/KG 025 5:20 AM CDT [facility] Comment:REFERENCE RANGE NOT ESTABLISHED GFR ESTIMATE 15(L) >90 ML/MIN/1. 73 M2 03/06/2025 5:20 AM CDT [facility] GFR NOTES GFR REFERENCE S: 03/06/2025 5:20 AM CDT [facility] Comment: THE ESTIMATED GFR IS [...] ml/min/1.73 m2 G5,KIDNEY FAILURE: <15 ml/min/1.73 m2 03/06/2025 4:11 AM CDT Lizzy Buitrago NP LABORATORY Final Result [facility] [address] [place] [id number], [id number] * XR ABD KUB (03/05/2025 6:00 PM CDT) Anatomical Region Laterality Modality Abdomen Radiographic Dee ging 03/05/2025 11:3 7 PM CDT Impressions 03/05/2025 11:38 PM CDT IMPRESSION: 1. Nonobstructive bowel gas pattern. 2. Moderate right colonic stool burden. Referred By: MICHELLE BLANKENSHIP Interpreted By: Nelson Waters MD, 03/05/2025 11:37 PM Narrative 03/05/2025 11:38 PM CDT [facility] [address] [place], [place] [address] Examination: Abdomen 1 view Exam Date/Time: 03/05/2025 6:00 PM Reason For Exam: constipation Comparison: CT abdomen pelvis 10/23/2024 Technique: Single AP view of the abdomen was obtained. Findings: Bowel gas pattern is nonobstructive. Moderate right colonic stool burden. No abnormal calcifications project over the abdomen. No acute osseous lesions are seen. Visualized lung bases are clear. No convincing evidence of free air or perforation or obstruction. Procedure Note Nelson Waters MD - 03/05/[address] [address] Examination: Abdomen 1 view Exam Date/Time: 03/05/2025 6:00 PM Reason For Exam: constipation Comparison: CT abdomen pelvis 10/23/2024 Technique: Single AP view of the abdomen was obtained. Findings: Bowel gas pattern is nonobstructive. Moderate right colonicstool burden. No abnormal calcifications project over the abdomen. Noacute osseous lesions are seen. Visualized lung bases are clear. Noconvincing evidence of free air or perforation or obstruction. IMPRESSION: 1. Nonobstructive bowel gas pattern. 2. Moderate right colonic stool burden. Referred By: MICHELLE BLANKENSHIP Interpreted By: Nelson Waters MD, 03/05/2025 11:37 PM us Irfan Ul Edgardo Desi [facility] Final Res ult * (ABNORMAL) PROTEIN CREAT RATIO URINE (03/05/2025 5:48 PM CDT) PROTEIN URINE TOTAL RANDOM 99.1(H) <12.0 MG/DL 03/05/2025 6:27 PM CDT [facility] CREATININE (U) 85.5 MG/DL 03/05/2025 6:27 PM CDT [facility] Comment:REFERENCE RANGE NOT ESTABLISHED PROTEIN/CREATINI NE RATIO 1.2 03/05/2025 6:27 PM CDT [facility] URINE SPECIMEN / Unknown 03/05/2025 5:48 PM CDT us Nikko Vasquez MD URINE ORDERABLES Final Result [facility] [address] [place] [address], [phone] * (ABNORMAL) URINALYSIS (03/05/2025 5:48 PM CDT) Only the most recent of2 resultswithin the time period is included. COLOR (U) LIGHT YELLOW 03/05/2025 6:10 PM CDT [facility] TRANSPARENCY CLEAR 03/05/2025 6:10 PM CDT [facility] SPECIFIC GRAVITY (U) 1.013 1.002 - 1.035 03/05/2025 6:10 PM CDT [facility] U PH 6.0 5 - 8 03/05/2025 6:10 PM CDT [facility] PROTEIN RANDOM (U) 50(A) NEGATIVE 03/05/2025 6:10 PM CDT [facility] GLUCOSE (U) NEGATIVE NEGATIVE MG/DL 03/05/2025 6:10 PM CDT [facility] KETONES MG/DL (U) TRACE(A) NEGATIVE 03/05/2025 6:10 PM CDT [facility] BILIRUBIN (U) NEGATIVE NEGATIVE 03/05/2025 6:10 PM CDT [facility] BLOOD (U) TRACE(A) NEGATIVE 03/05/2025 6:10 PM CDT [facility] NITRITES NEGATIVE NEGATIVE 03/05/2025 6:10 PM CDT [facility] UROBILINOGEN NORMAL 0 - 1 EU/DL 03/05/2025 6:10 PM CDT [facility] LEUKOCYTES (U) TRACE(A) NEGATIVE 03/05/2025 6:10 PM CDT [facility] RBC/HPF 2 0 - 3 /HPF 03/05/2025 6:10 PM CDT [facility] WBC/HPF 3 0 - 6 /HPF 03/05/2025 6:10 PM CDT [facility] BACTERIA (U) NONE /HPF 03/05/2025 6:10 PM CDT [facility] SQUAMOUS EPITHELIALS 2 03/05/2025 6:10 PM CDT [facility] NON SQUAMOUS EPITHELIAL <1 /HPF 03/05/2025 6:10 PM CDT [facility] BUDDING YEAST PRESENT 03/05/2025 6:10 PM CDT [facility] URINE SPECIMEN OBTAINED BY CLEAN CATCH PROCEDURE / Unknown 03/05/2025 5:48 PM CDT Nikko Vasquez MD URINE ORDERABLES Final Result Performing Organization Address [facility] de Phone Number [facility] [address] [place] [address], [phone] * SODIUM URINE RANDOM (03/05/2025 3:54 PM CDT) Only the most recent of2 resultswithin the time period is included. NA RANDOM (U) 81 MMOL/L 03/05/2025 4:28 PM CDT [facility] Comment:REFERENCE RANGE NOT ESTABLISHED URINE SPECIMEN / Unknown 03/05/2025 3:54 PM CDT us Lizzy Buitrago PASTRY WRAPPER URINE ORDERABLES Final Resul t Performing Organization Address [facility] Co de Phone Number [facility] [address] [place] [address], [phone] * CULTURE, URINE (03/05/2025 3:54 PM CDT) Only the most recent of2 resultswithin the time period is included. SPEC DESCRIPTION URINE CLEAN CATCH 03/05/2025 5:46 PM CDT [facility] SPECIAL REQUESTS NO SPECIAL REQUEST 03/05/2025 5:46 PM CDT [facility] CULTURE RESULT FEW CONTAMINANTS 02/17 10:14 AM CDT [facility] URINE SPECIMEN OBTAINED BY CLEAN CATCH PROCEDURE / Unknown 03/05/2025 3:54 PM CDT 03/05/2025 5:58 PM CDT Kamilah Weeks MD MICROBIOLOGY - GENERAL OR DERABLES Final Result Performing Organization Address [facility] de Phone Number [facility] [address] [place] [address], [phone] * (ABNORMAL) PTH - INTACT (03/05/2025 2:43 PM CDT) PTH INTACT 93.1(H) 18.4 - 80.1 PG/ML 03/05/2025 6:10 PM CDT [facility] Comment: ASSAY PERFORMED BY CHEMILUMINESCENCE METHODOLOGY USING SIEMENS CENTAUR XPT REAGENT. PATIENT RESULTS DETERMINED BY ASSAYS USING DIFFERENT MANUFACTURERS FOR METHODS MAY NOT BE COMPARABLE. 03/05/2025 2:43 PM CDT us Nikko Vasquez MD LABORATORY Final Result Performing Organization Address [facility] Co de Phone Number [facility] [address] [place] [address], [phone] * (ABNORMAL) HEMOGLOBIN, GLYCOSYLATED (03/05/2025 2:43 PM CDT) HGB A1C 6.5(H) <5.7 % 03/05/2025 3:55 PM CDT [facility] ESTIMATED AVG GLUCOSE 140(H) 74 - 114 MG/DL 03/05/2025 3:55 PM CDT [facility] 03/05/2025 2:43 PM CDT Lizzy Buitrago PASTRY WRAPPER LABORATORY Final Result Performing Organization Address [facility]/ZIP Co de Phone Number [facility] [address] [place] [address], [phone] * PARTIAL THROMBOPLASTIN TIME,PTT (03/05/2025 2:43 PM CDT) PTT 28.5 25.1 - 36.5 SEC 03/05/2025 3:29 PM CDT [facility] 03/05/2025 2:43 PM CDT Lizzy Buitrago PASTRY WRAPPER LABORATORY Final Result Performing Organization Address [facility] Co de Phone Number [facility] [address] [place] [address], [phone] * PROTHROMBIN TIME, VENOUS (03/05/2025 2:43 PM CDT) PROTIME 10.4 9.4 - 12.5 SEC 03/05/2025 3:26 PM CDT [facility] INR 0.9 0.8 - 1.1 03/05/2025 3:26 PM CDT [facility] 03/05/2025 2:43 PM CDT Lizzy Buitrago PASTRY WRAPPER LABORATORY Final Result Performing Organization Address [facility] Co de Phone Number [facility] [address] [place] [address], [phone] * MAGNESIUM (02/27/2025 3:21 AM CDT) Only the most recent of2 resultswithin the time period is included. MAGNESIUM 1.7 1.6 - 2.6 MG/DL 02/27/2025 5:04 AM CDT [facility] 02/27/2025 3:21 AM CDT us Jax Hendrickson MD LABORATORY Final Result Performing Organization Address City/[facility]/ZIP Co de Phone Number [facility] [address] [place] [address], [id number] * TROPONIN, QUANT (02/26/2025 1:37 PM CDT) Only the most recent of3 resultswithin the time period is included. TROPONIN I HIGH SENSITIVITY 39 0 - 53 ng/L 02/26/2025 2:17 PM CDT [facility] 02/26/2025 1:37 PM CDT us Jax Hendrickson MD LABORATORY Final Result Performing Organization Address [facility] de Phone Number [facility] [address] [place] [address], [place] [phone] [id number] * US RETROPERITONEAL COMP (02/26/2025 10:35 AM CDT) Anatomical Region Laterality Modality Abdomen Ultrasound 02/27/2025 12:4 1 AM CDT Impressions 02/27/2025 12:43 AM CDT IMPRESSION: 1. No hydronephrosis or acute renal abnormality visualized. 2. Nonvisualization of the left urinary jet. 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 : 1965 Requested By: JAX HENDRICKSON Order Number: [id number] Nicki MD: Ilan Velasquez Measurements Intervals [place] Rate: 73 P: 31 MN: 183 QRS: -30 QRSD: 145 T: 131 QT: 444 QTc: 492 Interpretive Statements SINUS RHYTHM LEFT BUNDLE BRANCH BLOCK Procedure Note Ilan Velasquez MD - 02/26/2025 [address] [place] [address] Test Date: 2025-02-26 Pat Name: [facility] Department: 1 Room: 738AA Gender: Female 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 Procedure Note Freddy Ortiz DO - 02/26/2025 [facility] [address] [place], [place] [address] Examination: XR CHEST PORTABLE Exam time: 02/26/2025 [...] should be noted that the right middle rqocaphl-ha-iwe opacities seen on CT 10/23/2024 were not demonstrated on chestradiograph 10/22/2024 and if imaging documentation of resolution of xauxcjeue-yq-iyq opacities is desired, CT should be considered. 2. Carotid atherosclerotic calcifications. Referred By: PROVIDER NON-STAFF Interpreted By: Freddy Ortiz DO, 02/26/2025 6:49 AM Jax Hendrickson MD GENERAL IMAGING Final Result * GI PANEL PCR - STOOL (02/26/2025 4:52 AM CDT) CAMPYLOBACTER PCR (STOOL) NOT DETECTED NOT DETECTED 02/26/2025 5:00 PM CDT [facility] PLESIOMONAS SHIGELLOIDES PCR (STOOL) NOT DETECTED NOT DETECTED 02/26/2025 5:00 PM CDT [facility] SALMONELLA PCR (STOOL) NOT DETECTED NOT DETECTED 02/26/2025 5:00 PM CDT [facility] VIBRIO PCR (STOOL) NOT DETECTED NOT DETECTED 02/26/2025 5:00 PM CDT [facility] VIBRIO CHOLERAE PCR (STOOL) NOT DETECTED NOT DETECTED 02/26/2025 5:00 PM CDT [facility] YERSINIA ENTEROCOLITICA PCR (STOOL) NOT DETECTED NOT DETECTED 02/26/2025 5:00 PM CDT [facility] ENTEROAGGREGATIVE ECOLI PCR (STOOL) NOT DETECTED NOT DETECTED 02/26/2025 5:00 PM CDT [facility] ENTEROPATHOGENIC ECOLI PCR (STOOL) NOT DETECTED NOT DETECTED 02/26/2025 5:00 PM CDT [facility] ENTEROTOXIGENIC ECOLI PCR (STOOL) NOT DETECTED NOT DETECTED 02/26/2025 5:00 PM CDT [facility] SHIGA LIKE TOXIN ECOLI PCR (STOOL) NOT DETECTED NOT DETECTED 02/26/2025 5:00 PM CDT [facility] SHIG/ENTEROINVASIVE ECOLI PCR (STOOL) NOT DETECTED NOT DETECTED 02/26/2025 5:00 PM CDT [facility] CRYPTOSPORIDIUM PCR (STOOL) NOT DETECTED NOT DETECTED 02/26/2025 5:00 PM CDT [facility] CYCLOSPORA CAYETANENSIS PCR (STOOL) NOT DETECTED NOT DETECTED 02/26/2025 5:00 PM CDT [facility] ENTAMOEBA HISTOLYTICA PCR (STOOL) NOT DETECTED NOT DETECTED 02/26/2025 5:00 PM CDT [facility] GIARDIA LAMBLIA PCR (STOOL) NOT DETECTED NOT DETECTED 02/26/2025 5:00 PM CDT [facility] ADENOVIRUS F40/41 PCR (STOOL) NOT DETECTED NOT DETECTED 02/26/2025 5:00 PM CDT [facility] ASTROVIRUS PCR (STOOL) NOT DETECTED NOT DETECTED 02/26/2025 5:00 PM CDT [facility] NOROVIRUS GI/GII PCR (STOOL) NOT DETECTED NOT DETECTED 02/26/2025 5:00 PM CDT [facility] ROTAVIRUS A PCR (STOOL) NOT DETECTED NOT DETECTED 02/26/2025 5:00 PM CDT [facility] SAPOVIRUS PCR (STOOL) NOT DETECTED NOT DETECTED 02/26/2025 5:00 PM CDT [facility] STOOL SPECIMEN / Unknown 02/26/2025 4:52 AM CDT us Jax Hendrickson MD MICROBIOLOGY - GENERAL ORDERAB LES Final Result [facility] [address] [place] [address], * CREATININE URINE RANDOM (02/26/2025 12:32 AM CDT) CREATININE (U) 51.9 MG/DL 02/26/2025 1:14 AM CDT [facility] Comment:REFERENCE RANGE NOT ESTABLISHED URINE SPECIMEN / Unknown 02/26/2025 12:32 AM CDT us Jax Hendrickson MD URINE ORDERABLES Final Result Performing Organization Address City/[facility]/ZIP Co de Phone Number [facility] [address] [place] [address], [phone] * (ABNORMAL) PRO-BRAIN NATRIURETIC PEPTIDE (02/26/2025 12:30 AM CDT) PRO-B TYPE NATRIURETIC PEPTIDE 12,055(H) <125 PG/ML 02/26/2025 1:18 AM CDT [facility] Comment: AGE INDEPENDENT: <300 PG/ML HAS [...] MD LABORATORY Final Result Performing Organization Address [facility]/ZIP Co de Phone Number [facility] [address] [place] [address], [phone] * LACTIC ACID (02/26/2025 12:30 AM CDT) LACTIC ACID VENOUS 1.0 0.4 - 2.0 MMOL/L 02/26/2025 1:18 AM CDT [facility] 02/26/2025 12:3 0 AM CDT us Jax Hendrickson MD LABORATORY Final Result Performing Organization Address [facility] Co de Phone Number [facility] [address] [place] [address], [phone] * PHOSPHORUS, INORGANIC PHOSPHATE (02/26/2025 12:30 AM CDT) PHOSPHORUS 4.4 2.5 - 4.9 MG/DL 02/26/2025 1:18 AM CDT [facility] 02/26/2025 12:3 0 AM CDT us Jax Hendrickson MD LABORATORY Final Result Performing Organization Address [facility] Co de Phone Number [facility] [address] [place] [address], [phone] * CULTURE, BACTERIA, BLOOD (02/26/2025 12:29 AM CDT) SPEC DESCRIPTION BLOOD 02/26/2025 12:01 AM CDT [facility] SPECIAL REQUESTS NO SPECIAL REQUEST 02/26/2025 12:01 AM CDT [facility] CULTURE RESULT NO GROWTH 5 DAYS 03/03/2025 12:56 AM CDT [facility] BLOOD SPECIMEN OBTAINED FOR BLOOD CULTURE / Unknown 02/26/2025 12:29 AM CDT 02/26/2025 12:30 AM CDT Jax Hendrickson MD MICROBIOLOGY - GENERAL ORDERAB LES Final Result [facility] [address] [place] [address], [place] [phone] [id number] from Last 3 Months Insurance [facility] MEDICARE PART A MEDICAID [address] [place] [id number] Advance Directives Documents on File Type Date Recorded Patient Batch Unit Treater Expl anation Advance Directives and Livin g Will 07/10/2023 4:10 PM * Full Code (Latest Code Status on File) Date Activated Date Inactivated Comments 03/05/2025 10:58 AM 03/08/2025 2:24 PM * Full Code Date Activated Date Inactivated Comments 02/26/2025 12:47 AM 02/27/2025 3:45 PM * Full Code Date Activated Date Inactivated Comments 10/23/2024 12:51 PM 10/24/2024 7:17 PM * Full Code Date Activated Date Inactivated Comments 08/14/2024 7:27 PM 08/16/2024 7:07 PM * Full Code Date Activated Date Inactivated Comments 09/08/2023 4:19 AM 09/14/2023 8:40 PM Care Teams Roof Service Technician Relationship Specialty Start Date End Date Destinee Rodriguez NP PCP - General NURSE PRACTITIONER 09/08/23
--- OUTSIDE RECORDS SUMMARY | 2025-04-28 00:29 | XMS_ITS | Encounter Summary ---
Author Organization [facility] Address [address] [place] [address] Care Team Providers Care Metal Sheet Roller Operator Name Role Phone None, Provider MD Primary Care Provider Jyothi treviño Non-Staff, Provider Primary Care Provider Luis Manuel Osborne MD Primary Care Provider [phone] Destinee Rodriguez NP Primary Care Provider [phone] Reason for Referral * Surgical (Routine) - Closed Specialty Diagnoses / Procedures Referred By Contheena t Referred To Contact Diagnoses Osteomyelitis Procedures Case request operating room: BONE BIOPSY-FOOT Jaxon August MD [facility] [address] [place] [address] Phone: tel: fax: [facility] [place] [address] Phone: tel: Referral ID Status Reason Start Date Expiration Date Visits Re quested Visits Authorized [id number] Closed 03/09/2022 04/06/2023 1 1 Encounter Details Date Type Department Care Team (Late st Contact Info) Description 03/06/2022 Prep for Procedure [facility] [place] [address] [place], [place] [id number] Jaxon August MD [facility]. [place] [address] [place] [address] Social History Tobacco Use Types Packs/Day Years Used Date Smoking Tobacco: Never Smokeless Tobacco: Never Comments Unknown Sex and Gender Information Value Date Recorded Sex Assigned at Female 10/22/2024 9:59 PM TEACHER ADVISOR Legal Sex Female 9:54 PM TEACHER ADVISOR Gender Identity Not on file Sexual Orientation [...] AM LIT [place] Martin RN Active * [place] Suicide Severity Rating Scale (Screener/Recent Self-Report) Question [...] Rule Out 10/22/2024 10/22/2024 10/22/2024 10:40 PM TEACHER ADVISOR Respiratory Rule Out 10/22/2024 10/22/2024 025 10:41 PM TEACHER ADVISOR documented as of this encounter Care Teams Metal Sheet Roller Operator Relationship Specialty Start Date End Date None, Provider, PCP - General 08/20/21 06/01/22 Non-Staff, Provider PCP - General UNKNOWN PHYSICIAN SPECIALTY 06/02/22 05/07/23 Luis Manuel Mccall MD [facility] [place] [address] PCP - General FAMILY PRACTICE 05/08/23 09/07/23 Destinee Rodriguez NP [facility] [place] [address] PCP - General NURSE PRACTITIONER 09/08/23 documented as of this encounter
--- OUTSIDE RECORDS SUMMARY | 2025-04-28 00:29 | XMS_ITS | Encounter Summary ---
Author Organization [facility] Address [address] [place] [address] Care Team Providers Care Sales And Marketing Director Name Role Phone Destinee Rodriguez MOLECULAR SPECTROSCOPIST Primary Care Provider [phone] Encounter Details Date Type Department Care Team (Late st Contact Info) Description 09/17/2023 Hospital Follow-up Call [facility] [address] [place] [address] Xiomara Schmitt RN Social History Tobacco Use Types Packs/Day Years Used Date Smoking Tobacco: Never Smokeless Tobacco: Never [facility] Utilities Answer Date Recorded In [...] place to sleep or slept in a jail (including now)? No 09/08/2023 Comments Unknown Sex and Gender Information Value Date Recorded Sex Assigned at Female 10/22/2024 9:59 PM INSURANCE SALES PROFESSIONAL Legal Sex Female 9:54 PM INSURANCE SALES PROFESSIONAL Gender Identity Not on file Sexual Orientation [...] Assessment Author Status No 09/08/2023 3:58 AM INSURANCE SALES PROFESSIONAL Ever Yancey RN Active documented as of this encounter Mental Status * Because of a physical, mental, or emotional condition, do you have serious difficulty concentrating, remembering, or making decisions? Answer Entry Date Author Status No 09/08/2023 3:58 AM INSURANCE SALES PROFESSIONAL Ever Yancey RN Active documented in this [...] Rule Out 10/22/2024 10/22/2024 10/22/2024 10:40 PM INSURANCE SALES PROFESSIONAL Respiratory Rule Out 10/22/2024 10/22/2024 025 10:41 PM INSURANCE SALES PROFESSIONAL documented as of this encounter Care Teams Sales And Marketing Director Relationship Specialty Start Date End Date Destinee Rodriguez NP PCP - General NURSE PRACTITIONER 09/08/23 documented as of this encounter
--- NOTE | 2025-04-28 01:14 | PC.NURSE ---
pts called to get home medications updated no answer voicemail was left.
[2025-04-28 01:31] LABS: Add Urine Microscopic? YES; Appearance Urine Cloudy (Clear); Glucose Urine UA 3+ mg/dL (Negative); Leukocyte Esterase Ur 2+ LEU/UL (Negative); Nitrate Urine Negative (Negative); Non Pathogenic Casts 0-2; Specific Grav Ur 1.014 (1.001-1.035)
[2025-04-28 02:55] LABS: Alanine Aminotransferase 11 U/L (6-35); Albumin Level 3.8 g/dL (3.5-5.1); Alkaline Phosphatase 108 U/L (38-126); Anion Gap 11 mmol/L (4-12); Aspartate Amino Transferase 20 U/L (14-36); Bilirubin,Total 0.3 mg/dL (0.2-1.3); Blood Urea Nitrogen 44 mg/dL (7-17); Calcium 8.8 mg/dL (8.4-10.2); Carbon Dioxide 17 mmol/L (22-30); Chloride 114 mmol/L (98-107); Estimated Glomerular Filt Rate 12; Glucose 198 mg/dL (65-110); Magnesium 2.1 mg/dL (1.6-2.3); Potassium 4.7 mmol/L (3.4-5.0); Sodium 142 mmol/L (137-145); Total Protein 7.4 g/dL (6.3-8.2)
[2025-04-28 02:57] LABS: CRP 1.0 mg/dL (<1.0)
[2025-04-28] MEDS: SODIUM BICARBONATE 8.4% 50 MEQ/50 ML SYRINGE IV PUSH (03:22)
[2025-04-28] MEDS: LACTATED RINGERS 1,000 ML 100 ML IV CONT ×2 (03:27→22:34)
[2025-04-28 03:28] LABS: Procalcitonin 0.1 ng/mL
--- NOTE | 2025-04-28 05:37 | P.HP_ITS ---
H&P: HPI History of Present Illness Date/Time: 04/28/25 05:07 Chief Complaint: Nausea/vomiting, dehydration, ARACELIS on CKD, metabolic acidosis Narrative: This is a 60 year old female patient with history of diabetes with retinopathy causing blindness, stage 4 chronic kidney disease with hypertension, CHF, esophagitis, hyperlipidemia, hematemesis, suicidal ideation, chronic anemia who was admitted to the hospital due to coffee-ground emesis and the discovery of acute on chronic kidney failure. Patient reports she is not been feeling well for several days and been dealing with nausea and vomiting. Patient is blind but EMS noted brown emesis at her residence. She has a history esophagitis and gastritis for which she is on Pepcid and pantoprazole. Patient was seen at [facility] in the emergency department but her labs indicated metabolic acidosis with an anion gap elevation as well as worsening of renal failure so decision was made to transfer her to this facility. Patient received 2 L of IV in the emergency department. On arrival urine sample was collected which revealed 3+ leukocyte esterase greater than 100 wbc's. This will be sent for culture. CT scan of the abdomen pelvis revealed fluid-filled small bowel loops without a transition point most likely to represent enteritis. Bowel sounds are hypoactive so ileus is also potential diagnosis. Due to coffee-ground emesis, we will hold aspirin and hold VT prophylaxis. She received 80 mg IV pantoprazole prior to transfer and we will continue 40 mg twice daily IV pantoprazole. Nausea vomiting for couple of days leading to decreased oral intake inability to keep oral medications including sodium bicarbonate and total loss of fluids from vomiting are likely reasons for acute on chronic renal failure as well as met abolic acidosis with anion gap. The gap has closed after IV fluids and IV sodium bicarb while the Cr is downtrending somewhat. H&H will likely fall to the 8 range since she was rehydrated after initial CBC. Nephrology and GI will be consulted. Prior to transfer we requested a VBG be obtained. Results showed venous pH 7.45 with pCO2 less than 19.9 and HC03 is 13.6. 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 Code status: Full code. Smoking status: Never smoker Second hand tobacco smoke exposure: No Additional smoking assessment comments: Per patient her spouse smokes in the home. Alcohol intake: never Substance use: never Substance use type: does not use Do You Feel Safe in your Home?: Yes Lack of Transportation: No Lack of Food: Never True Current Housing: I Have Housing Concerned About Future Housing: No Difficulty Paying Gas/Electric Bills: No Difficulty Paying for Meds: No Currently Unemployed: No Education: Don't Know Difficulty w/ Childcare or Family Care: No Living arrangements: with family Additional living arrangements comments: Lives with in [place]. They have 2 grown children. Occupation/Education: retired Additional occupation/education comments: Was in the [employer]. Spiritual care concerns: No Agree to blood products: Yes Meds Home Medications and Allergies Home Medications ?Medication ?Instructions ?Recorded ?Confirmed ?Type amlodipine 10 mg tablet 10 mg PO DAILY 12/18/2405/14 History darbepoetin jeffrey-albumin 40 mcg/mL 40 mcg subcut MONTH LY PRN low hgb 12/18/24 04/28/25 History in albumin injection gabapentin 100 mg capsule 100 mg PO BID 12/18/2404/28 History hydralazine 10 mg tablet 10 mg PO TID 12/18/24 History isosorbide dinitrate 10 mg tablet 20 mg PO BID 5 04/28/25 History sodium bicarbonate 650 mg tablet 1,300 mg PO BID 12/1804/28/25 History pantoprazole 40 mg tablet,delayed 40 mg PO Q12HR #60 t abs 12/24/24 04/28/25 Rx release famotidine 40 mg tablet 40 mg PO Q12H 02/16/2504/28 History aspirin 81 mg tablet,delayed 81 mg PO DAILY 02/17/25 0 04/28/25 History release (Adult Low Dose Aspirin) cholecalciferol (vitamin D3) 25 25 mcg PO DAILY 04/28/25 History mcg (1,000 unit) capsule (Vitamin D3) patiromer calcium sorbitex 8.4 8.4 g PO .ever 02/17/25 04/28/25 History gram oral powder packet ipratropium 0.5 mg-albuterol 3 mg 3 ml inhalation Q6HR T PRN 02/20/25 04/28/25 Rx (2.5 mg base)/3 mL nebulization Shortness Of Breath Or Wheezing soln #30 vials polyethylene glycol 3350 17 gram 17 g PO NOON #14 ea 0 02/20/25 04/28/25 Rx oral powder packet (Miralax) metoclopramide HCl 5 mg tablet 5 mg PO Q8H PRN nausea and vomiting 02/25/25 04/28/25 History folic acid 1 mg tablet 1 mg PO DAILY 04/27/2504/28 History Allergies Allergy/AdvReac Type Severity Reaction Status Date / Time No Known Allergies Allergy Unknown Verified 04/27/25 18:18 Vital Signs Vital Signs - 24 hr 04/27/25 23:50 04/28/25 02:00 04/28/25 03:52 Temperature 36.9 C Pulse Rate 101 H 103 H Respiratory Rate 16 Blood Pressure 164/87 H Pulse Oximetry 99 Oxygen Delivery Room Air 04/28/25 04:00 04/28/25 04:00 Temperature 36.9 C Pulse Rate 110 H 89 Respiratory Rate 16 Blood Pressure 142/84 H Pulse Oximetry 100 Oxygen Delivery Exam Narrative: GENERAL: Acute and chronically ill-appearing HEAD: Normocephalic, atraumatic. ENT:? Mucous membranes moist. Blind, abnormal ocular appearance CHEST: Clear to auscultation.? No respiratory distress. HEART: Regular rate and rhythm. ? Normal peripheral pulses. ABDOMEN: Soft, nontender, nondistended. Hypoactive bowel sounds. EXTREMITIES: Normal range of motion. No peripheral edema. Right BKA SKIN: Warm dry normal color NEURO: Alert and oriented x3. H&P: Results Labs Labs: BMP 04/28/25 02:36 Sodium 142 Potassium 4.7 Chloride 114 H Carbon Dioxide 17 L BUN 44 H Creatinine 3.68 H Glucose 198 H Calcium 8.8 Liver Function 04/28/25 Range/Units 02:36 Total Bilirubin 0.3 (0.2-1.3) mg/dL AST 20 (14-36) U/L ALT 11 (6-35) U/L Alkaline Phosphatase 108 (38-126) U/L Albumin 3.8 (3.5-5.1) g/dL Urine 04/28/25 Range/Units 01:17 Urine Color Yellow (Yellow) Urine Appearance Cloudy H (Clear) Urine pH 5.5 (5.0-9.0) Ur Specific [place] 1.014 (1.001-1.035) Urine Protein 2+ H (Negative) mg/dL Urine Glucose (UA) 3+ H (Negative) mg/dL ECG Attestation: I personally reviewed and interpreted this ECG as follows: ECG completion date: 04/27/25 ECG completion time: 18:45 Prior ECG tracings: available for review Interpretation: Sinus rhythm rate of 89 [place] interval 190 QRS duration 140 left bundle branch block QTC 495 prolonged QRS axis 2? no STEMI unchanged from prior EKGs Imaging CT scan - abdomen: Radiologist's impression: EXAMINATION: CT abdomen pelvis wo con DATE: 04/27/2025 19:16 INDICATION: Nausea, vomiting and diarrhea TECHNIQUE: Computed tomography (CT) of the abdomen and pelvis was performed without intravenous contrast. The dose-length product was 448.01 mGy-cm. COMPARISON: CT dated 02/25/2025. FINDINGS: Lung bases unremarkable. Heart size normal. No significant pleural or pericardial effusion. The liver, spleen, pancreas, adrenal glands and kidneys are unremarkable. There are bilateral renal arterial calcifications. There is atherosclerosis of the aorta. No aneurysm. Small hiatal hernia with thickening of the distal esophagus. Nonobstructive bowel gas pattern. There are fluid- filled small bowel loops in the left abdomen without transition point.Stable superior endplate compression fracture of T12, likely chronic. Mild lower thoracic and lumbar spondylosis. IMPRESSION: 1. Fluid-filled small bowel loops left midabdomen, suspicious for enteritis. 2: Small hiatal hernia with thickening of the distal esophagus, consistent with esophagitis. Reviewed, dictated and finalized at location O. Assessment and Plan Assessment and plan (1) Metabolic acidosis: Code(s): E87.20 - Acidosis, unspecified Status: Acute Assessment and Plan: -Initial labs today with Carbon Dioxide of 13, anion gap 18 with ARACELIS on CKD with eGFR 10 and Cr 4.30 -Related to ARACELIS on CKD as well as dehydration with vomiting from gastroenteritis with coffee ground emesis -Improving labs after IV fluids and IV sodium bicarb -Consult Nephrology (2) Acute on chronic kidney failure: Qualifiers: Acute renal failure type: unspecified Chronic kidney disease stage: unspecified stage Qualified Code(s): N17.9 - Acute kidney failure, unspecified; N18.9 - Chronic kidney disease, unspecified Code(s): N17.9 - Acute kidney failure, unspecified; N18.9 - Chronic kidney disease, unspecified Status: Acute Assessment and Plan: -See above (3) Coffee ground emesis: Code(s): K92.0 - Hematemesis Status: Acute Assessment and Plan: -Brown emesis at home per EMS report -CT findings of esophagitis and enteritis -Check procalcitonin and inflammatory markers -Monitor H&H -IV Pantoprazole 80 mg given at [facility] ER -Consult GI and continue Pepcid and PPI (4) Gastroenteritis: Code(s): K52.9 - Noninfective gastroenteritis and colitis, unspecified Status: Acute Assessment and Plan: -Coffee ground emesis with CT findings of small bowel fluid filled loops without transition point (5) Anemia in chronic kidney disease (CKD): Code(s): N18.9 - Chronic kidney disease, unspecified; D63.1 - Anemia in chronic kidney disease Status: Acute Assessment and Plan: -Stable with Hemoglobin of 10 at [facility] ER before IV fluids (6) 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 - Unspecified visual loss Status: Acute Assessment and Plan: -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 (7) 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, with long-term current use of insulin: Code(s): E11.319 - Type 2 diabetes mellitus with unspecified diabetic retinopathy without macular edema; Z79.4 - intermediate teacher (current) use of insulin Status: Acute Assessment and Plan: -NPO for now but diabetic diet when able to eat/drink -ACHS fingestick glucose with moderate dose correction ordered (8) Erosive esophagitis: Code(s): K22.10 - Ulcer of esophagus without bleeding Status: Acute Assessment and Plan: -See above Quality VTE Prophylaxis VTE prophylaxis: mechanical ordered If No VTE Prophylaxis Answer both mechanical and pharmacologic: Reason no pharmacologic proph: medical contraindication active bleeding/bleeding risk Due to a high probability of clinically significant, life threatening deterioration, the patient required my highest level of preparedness to intervene emergently and I personally spent this critical care time directly and personally managing the patient. This critical care time included obtaining a history; examining the patient; pulse oximetry; ordering and review of studies; arranging urgent treatment with development of a management plan; evaluation of patient's response to treatment; frequent reassessment; and discussions with other providers. It was exclusive of separately billable procedures and treating other patients and teaching time. Please see Assessment and Plan section and the rest of the note for further information on patient assessment and treatment. Critical Care time: 40 minutes Hospitalist MIPS Advance Care Plan I have confirmed that the patient's Advanced Care Plan is present, code status is documented, or surrogate decision maker is listed in patient medical record.: Yes Medication Reconciliation I have utilized all available resources to obtain, update and review the patients current medications (includes all prescriptions, OTC, herbals, cannabis, and nutritional supplements).: Yes
[2025-04-28 07:50] LABS: Hemoglobin A1C 6.3 % (<5.7)
[2025-04-28 08:12] LABS: Hematocrit 26.4 % (37.0-47.0); Hemoglobin 8.2 g/dL (12.0-15.0)
[2025-04-28] MEDS: SODIUM BICARBONATE TAB 650 MG TABLET 1300 MG PO ×2 (08:44→17:20)
[2025-04-28] MEDS: ISOSORBIDE DINITRATE 10 MG TABLET 20 MG PO ×2 (08:44→21:50)
[2025-04-28] MEDS: CHOLECALCIFEROL (VITAMIN D3) 25 MCG (1,000 UNITS) TABLET PO (08:44)
[2025-04-28] MEDS: GABAPENTIN 100 MG CAPSULE PO ×2 (08:45→21:51)
[2025-04-28] MEDS: PANTOPRAZOLE SODIUM IV 40 MG VIAL IV PUSH (08:45)
[2025-04-28] MEDS: FOLIC ACID 1 MG TABLET PO (08:45)
[2025-04-28] MEDS: FAMOTIDINE 20 MG TABLET 40 MG PO ×2 (08:47→21:51)
--- NOTE | 2025-04-28 08:56 | P.CONGI_ITS ---
Assessment and Plan Assessment and plan (1) Hematemesis with nausea: Code(s): K92.0 - Hematemesis <Meliza LirianoAURELIO - Last Filed: 04/28/25 13:33> Status: Acute <Meliza DPramod Liriano, HUMAN RESOURCES REPRESENTATIVE - Last Filed: 04/28/25 13:33> Assessment and Plan: I have reviewed our nurse practitioner's note, examined the patient and pertinent laboratory data. We have discussed the plan extensively and agreed with was stated in the note. most likely etiology for coffee-ground emesis, without hemodynamic compromise is recurrence or persistence of erosive esophagitis. Indications will be written after EGD is performed. <John Blanco MD - Last Filed: 04/28/25 14:43> (2) Coffee ground emesis: Code(s): K92.0 - Hematemesis <Meliza PalaciosAURELIO razo - Last Filed: 04/28/25 13:33> Status: Acute <Meliza LirianoROSEMARYN - Last Filed: 04/28/25 13:33> (3) Erosive esophagitis: Code(s): K22.10 - Ulcer of esophagus without bleeding <Meliza PalaciosROSEMARY razoN - Last Filed: 04/28/25 13:33> Status: Acute <Meliza Liriano, HUMAN RESOURCES REPRESENTATIVE - Last Filed: 04/28/25 13:33> (4) Gastroenteritis: Code(s): K52.9 - Noninfective gastroenteritis and colitis, unspecified < Meliza PalaciosAURELIO razo - Last Filed: 04/28/25 13:33> Status: Acute <Meliza Liriano, HUMAN RESOURCES REPRESENTATIVE - Last Filed: 04/28/25 13:33> (5) Anemia in chronic kidney disease (CKD): Qualifiers: Chronic kidney disease stage: stage 4 (GFR 15-29) Qualified Code(s): N18.4 - Chronic kidney disease, stage 4 (severe); D63.1 - Anemia in chronic kidney disease <Meliza PalaciosROSEMARY razoN - Last Filed: 04/28/25 13:33> Code(s): N18.9 - Chronic kidney disease, unspecified; D63.1 - Anemia in chronic kidney disease <Meliza Liriano APRN - Last Filed: 04/28/25 13:33> Status: Acute <Meliza Liriano APRN - Last Filed: 04/28/25 13:33> (6) Chronic anemia: Code(s): D64.9 - Anemia, unspecified <Meliza Liriano APRN - Last Filed: 04/28/25 13:33> Status: Acute <Meliza Liriano HUMAN RESOURCES REPRESENTATIVE - Last Filed: 04/28/25 13:33> (7) Diarrhea: Qualifiers: Diarrhea type: presumed infectious Qualified Code(s): R19.7 - Diarrhea, unspecified <Meliza Liriano APRN - Last Filed: 04/28/25 13:33> Code(s): R19.7 - Diarrhea, unspecified <Meliza Liriano APRN - Last Filed: 04/28/25 13:33> Status: Acute <Meliza Liriano HUMAN RESOURCES REPRESENTATIVE - Last Filed: 04/28/25 13:33> (8) Fecal incontinence: Qualifiers: Fecal incontinence type: full incontinence of feces Q ualified Code(s): R15.9 - Full incontinence of feces <Meliza Liriano APRN - Last Filed: 04/28/25 13:33> Code(s): R15.9 - Full incontinence of feces <Meliza Liriano APRN - Last Filed: 04/28/25 13:33> Status: Acute <Meliza Liriano APRN - Last Filed: 04/28/25 13:33> Assessment and Plan: 1. Coffee ground emesis/gastroenteritis/nausea and vomiting/erosive esophagitis: Last EGD 12/22/2024 showed grade 3 reflux esophagitis with circumferential erosions/ulcerations present in the distal esophagus. CT this admission showed small hiatal hernia with thickening of the distal esophagus, consistent with esophagitis.This admission and [employer] patient on famotidine 40 mg b.i.d. and pantoprazole 40 mg b.i.d. along with Reglan as needed for nausea and vomiting. Patient presented to [place] ER yesterday with complaints of nausea vomiting and diarrhea x2 days and was transferred here after labs indicated metabolic acidosis with an anion gap elevation as well as worsening of renal failure. Patient on aspirin 81 mg daily [employer] but on no other NSAID's or anticoagulants. Nausea and vomiting has improved but not resolved since admission. No mention of coffee ground emesis since admission. * EGD today * keep patient NPO * care with NSAID's, aspirin and anticoags * continue BID PPI pending endoscopic evaluation 2. Enteritis/diarrhea/incontinence: CT showed and fluid-filled small bowel loops left midabdomen, suspicious for enteritis. Patient states that she is having daily BM's but states that they are loose to liquid with incontinence. Patient was unable to say if the incontinence is new or something chronic for her. * patient on antibiotics, continue * will check stool studies for infectious etiology * T/C outpatient colonoscopy as mentioned below 2. Acute on chronic anemia: Anemia of chronic disease and etiology likely multifactorial given multiple comorbidities including chronic kidney disease stage 3. On admission Hgb 8 and today Hgb 10, Hct 32, MCV 92, platelets 340 and INR 0.9. * Primary care team to continue monitoring H/H and transfuse as needed to keep Hgb > 7 * if EGD is unremarkable, may consider outpatient colonoscopy given that she has never had one. If H/H does not stabilize we may need to consider inpatient colonoscopy Thank you very much for allowing me to share in the care of this very nice patient. This report may have been done utilizing a voice recognition system. Attempts have been made to correct errors. However, there may be uncorrected grammatical, spelling, and recognition errors present. <Meliza Liriano, AURELIO - Last Filed: 04/28/25 13:33> GI Consult Note Consult date/time: 04/28/25 08:56 <Meliza Liriano APRN - Last Filed: 04/28/25 13:33> Reason for consult: Coffee ground emesis and enteritis <Meliza Liriano APRN - Last Filed: 04/28/25 13:33> HPI: Deanna Partida is a 60 year old female with PMSH of insert ideations, findings, HTN, GERD, COPD, was a esophagitis, diabetes, chronic kidney disease stage 4, LBBB,, HLD, tremors, history of osteomyelitis and right BKA. She presented to [facility] yesterday with complaints of nausea, vomiting and diarrhea. EMS noted dark brown emesis. Patient was transferred to [place] after her labs indicated metabolic acidosis with an anion gap elevation as well as worsening of renal failure so decision was made to transfer. GI has been consulted for coffee ground emesis and enteritis. Patient states that since admission her nausea and vomiting has improved but not resolved. She is unable to confirm if she has been taking her famotidine and Protonix at home as she states that ?her gives her her medications?. She states she is having daily bowel movements that are loose to liquid with occasional fecal incontinence and admits to a decreased appetite over the past few days. She denies any abdominal pain, bloating, odynophagia, dysphagia, reflux, regurgitation, early satiety, unexplained weight loss, constipation, hematochezia, or melena. She is on aspirin 81 mg at home but denies any other NSAID or anticoagulant use. He is a nondrinker nonsmoker denies marijuana use. Family history negative for CRC or IBD. ENDOSCOPY HISTORY: EGD: 01/12/[address] Ewing for coffee ground emesis Findings: Reflux esophagitis, grade 3 (circumferential erosions/ulcerations) was present in the distal esophagus. Multiple biopsies were taken no active bleeding A small hiatal hernia was found at the GE junction. The hiatal hernia. A depth of 34 cm at 35 cm from the incisors The stomach at the body, cardia and fundus was examined was normal with no ulcers or masses. No obvious gastritis. Multiple biopsies taken The bulb and 2nd portion duodenum was normal with no ulcers or masses Bx results: A. Stomach, biopsies: - Benign gastric mucosa - No evidence of Helicobacter organisms or gastritis. B. Esophagus, biopsies: - Acute ulceration - Small amount of fibromuscular tissue - GMS stain for fungus with positive control is negative - Negative for malignancy. COLONOSCOPY: Patient denies prior colonoscopy LABS AND STOOL STUDIES: Labs 04/28/2025: Hgb 8, Hct 26 Sodium 142, potassium 4.7, BUN 44, creatinine 3.68, GFR 12, calcium 8.8, magnesium 2.1 Total bilirubin 0.3, AST 20, ALT 11, Alkaline Phos 108, albumin 3.8 Procalcitonin 0.1, CRP 1.0 Labs 04/27/2025: WBC 10, Hgb 10, Hct 32, MCV 92, platelets 340, INR 0.9 Sodium 143, potassium 5.1, BUN 51, creatinine 4.30, GFR 10, calcium 9.6 Total bilirubin 0.7, AST 20, ALT 13, Alkaline Phos 123, albumin 4.4, lipase 104 IMAGING: CT abd/pelvis w/o contrast 04/27/2025: FINDINGS: Lung bases unremarkable. Heart size normal. No significant pleural or pericardial effusion. The liver, spleen, pancreas, adrenal glands and kidneys are unremarkable. There are bilateral renal arterial calcifications. There is atherosclerosis of the aorta. No aneurysm. Small hiatal hernia with thickening of the distal esophagus. Nonobstructive bowel gas pattern. There are fluid- filled small bowel loops in the left abdomen without transition point.Stable superior endplate compression fracture of T12, likely chronic. Mild lower thoracic and lumbar spondylosis. IMPRESSION: 1. Fluid-filled small bowel loops left midabdomen, suspicious for enteritis. 2: Small hiatal hernia with thickening of the distal esophagus, consistent with esophagitis. CT abd/pelvis w/o contrast 02/25/2025: IMPRESSION: Mural thickening within the stomach and distal esophagus consistent with patient's history. Otherwise, no acute findings within the lower chest, abdomen or pelvis, as detailed above. Abdominal Ultrasound 12/23/2024: IMPRESSION: Fatty infiltration of the liver, which is otherwise unremarkable. <Meliza Liriano APRN - Last Filed: 04/28/25 13:33> Review of Systems 2 Constitutional: Constitutional: Reports as per HPI <Meliza Liriano APRN - Last Filed: 04/28/25 13:33> ENT: Reports as per HPI <Meliza Liriano APRN - Last Filed: 04/28/25 13:33> Cardiovascular: Cardiovascular: Reports as per HPI, Denies chest pain and Denies dyspnea <Meliza Liriano APRN - Last Filed: 04/28/25 13:33> Respiratory: Respiratory: Denies cough and Denies dyspnea <Meliza Liriano APRN - Last Filed: 04/28/25 13:33> Gastrointestinal: Gastrointestinal: Reports as per HPI <Meliza Liriano Last Filed: 04/28/25 13:33> Musculoskeletal: Musculoskeletal: Reports as per HPI <Meliza Liriano Last Filed: 04/28/25 13:33> Integumentary/Breasts: Skin/Breast: Reports as per HPI <Meliza Liriano Last Filed: 04/28/25 13:33> Psychiatric: Psychiatric: Reports as per HPI <Meliza Liriano Last Filed: 04/28/25 13:33> Endocrine: Endocrine: Reports no additional endocrine complaints <Meliza Liriano Last Filed: 04/28/25 13:33> Hematologic/Lymphatic: Hematologic/Lymphatic: Reports no additional hematologic/lymphatic complaints <Meliza NickersonPramod Suzannejobnatali Last Filed: 04/28/25 13:33> [facility] Past Medical History Medical History: Medical History Chronic anemia Erosive esophagitis Insulin dependent type 2 diabetes mellitus Chronic kidney disease, stage 4 (severe) 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 Heart failure, type unknown patient denies, poorly documented Left bundle branch block Hyperlipidemia Hypertension Intention tremor Osteomyelitis <Meliza Liriano Last Filed: 04/28/25 13:33> Surgical History Surgical History: Surgical History History of arthroplasty of left knee History of right below knee amputation <Meliza NickersonPramod Suzannejobnatali Last Filed: 04/28/25 13:33> Family History Family History: Family History Other Unknown family medical history <Meliza NickersonPramod Suzannejobnatali Last Filed: 04/28/25 13:33> Social History Social History: Social History Social History: Surrogate medical decision maker: Hu Partida, spouse. Code status: Full code. Smoking status: Never smoker Second hand tobacco smoke exposure: No Additional smoking assessment comments: Per patient her spouse smokes in the home. Alcohol intake: never Substance use: never Substance use type: does not use Do You Feel Safe in your Home?: Yes Lack of Transportation: No Lack of Food: Never True Current Housing: I Have Housing Concerned About Future Housing: No Difficulty Paying Gas/Electric Bills: No Difficulty Paying for Meds: No Currently Unemployed: No Education: Don't Know Difficulty w/ Childcare or Family Care: No Living arrangements: with family Additional living arrangements comments: Lives with in [place]. They have 2 grown children. Occupation/Education: retired Additional occupation/education comments: Was in the [employer]. Spiritual care concerns: No Agree to blood products: Yes <Meliza Liriano APRN - Last Filed: 04/28/25 13:33> Meds Home Medications and Allergies Home medications: Home Medications ?Medication ?Instructions ?Recorded ?Confirmed ?Type amlodipine 10 mg tablet 10 mg PO DAILY 12/18/2405/14 History darbepoetin jeffrey-albumin 40 mcg/mL 40 mcg subcut MONTH LY PRN low hgb 12/18/24 04/28/25 History in albumin injection gabapentin 100 mg capsule 100 mg PO BID 12/18/2404/28 History hydralazine 10 mg tablet 10 mg PO TID 12/18/24 History isosorbide dinitrate 10 mg tablet 20 mg PO BID 5 04/28/25 History sodium bicarbonate 650 mg tablet 1,300 mg PO BID 12/1804/28/25 History pantoprazole 40 mg tablet,delayed 40 mg PO Q12HR #60 t abs 12/24/24 04/28/25 Rx release famotidine 40 mg tablet 40 mg PO Q12H 02/16/2504/28 History aspirin 81 mg tablet,delayed 81 mg PO DAILY 02/17/25 0 04/28/25 History release (Adult Low Dose Aspirin) cholecalciferol (vitamin D3) 25 25 mcg PO DAILY 04/28/25 History mcg (1,000 unit) capsule (Vitamin D3) patiromer calcium sorbitex 8.4 8.4 g PO .ever 02/17/25 04/28/25 History gram oral powder packet ipratropium 0.5 mg-albuterol 3 mg 3 ml inhalation Q6HR T PRN 02/20/25 04/28/25 Rx (2.5 mg base)/3 mL nebulization Shortness Of Breath Or Wheezing soln #30 vials polyethylene glycol 3350 17 gram 17 g PO NOON #14 ea 0 02/20/25 04/28/25 Rx oral powder packet (Miralax) metoclopramide HCl 5 mg tablet 5 mg PO Q8H PRN nausea and vomiting 02/25/25 04/28/25 History folic acid 1 mg tablet 1 mg PO DAILY 04/27/2504/28 History <Meliza Liriano APRN - Last Filed: 04/28/25 13:33> Allergies/Adverse reactions: Allergies Allergy/AdvReac Type Severity Reaction Status Date / Time No Known Allergies Allergy Unknown Verified 04/28/25 11:40 <Meliza Liriano APRN - Last Filed: 04/28/25 13:33> Vital Signs Vital Signs - 24 hr 04/27/25 23:50 04/28/25 02:00 04/28/25 03:52 Temperature 98.4 F Pulse Rate 101 H 103 H Respiratory Rate 16 Blood Pressure 164/87 H Pulse Oximetry 99 Oxygen Delivery Room Air 04/28/25 04:00 04/28/25 04:00 04/28/25 06:00 Temperature 98.4 F Pulse Rate 110 H 89 96 Respiratory Rate 16 Blood Pressure 142/84 H Pulse Oximetry 100 Oxygen Delivery 04/28/25 08:15 Temperature 97.8 F Pulse Rate 98 Respiratory Rate 18 Blood Pressure 141/63 H Pulse Oximetry 100 Oxygen Delivery <Meliza Liriano APRN - Last Filed: 04/28/25 13:33> Exam 2 Const: General: cooperative, healthy appearing, comfortable, no acute distress and well developed <Meliza Liriano APRN - Last Filed: 04/28/25 13:33> Orientation/consciousness: oriented to person, oriented to place, oriented to time and patient oriented x3 <Meliza Liriano APRN - Last Filed: 04/28/25 13:33> HENMT: Head: normal to inspection, normocephalic and atraumatic <Meliza NickersonPramod Suzannedanni HUMAN RESOURCES REPRESENTATIVE - Last Filed: 04/28/25 13:33> Mouth: Yes Normal oral and palatal mucosa present and Yes moist mucous membranes <Meliza NickersonPramod Suzannedanni HUMAN RESOURCES REPRESENTATIVE - Last Filed: 04/28/25 13:33> Eyes: General: appearance normal, both eyes and all related structures < Meliza NickersonPramod Suzannedanni HUMAN RESOURCES REPRESENTATIVE - Last Filed: 04/28/25 13:33> Conjunctivae: conjunctivae normal <Meliza NickersonPramod SuzannedanniROSEMARYUn[facility] Last Filed: 04/28/25 13:33> Sclera: sclerae normal <Meliza NickersonPramod Suzannedanni HUMAN RESOURCES REPRESENTATIVE - Last Filed: 04/28/25 13:33> Pupils: Equal, round and reactive pupils present <Meliza NickersonPramod Suzannedanni HUMAN RESOURCES REPRESENTATIVE - Last Filed: 04/28/25 13:33> Other: blind <Meliza NickersonPramod Suzannedanni HUMAN RESOURCES REPRESENTATIVE - Last Filed: 04/28/25 13:33> Neck: Neck: normal visual inspection <Meliza NickersonPramod Suzannedanni HUMAN RESOURCES REPRESENTATIVE - Last Filed: 04/28/25 13:33> Chest: Chest palpation & inspection: normal inspection of the chest < Meliza Albino Suzannedanni HUMAN RESOURCES REPRESENTATIVE - Last Filed: 04/28/25 13:33> Resp: Effort & Inspection: normal respiratory effort and able to speak in complete sentences <Meliza NickersonPramod Suzannedanni HUMAN RESOURCES REPRESENTATIVE - Last Filed: 04/28/25 13:33> Auscultation: clear to auscultation bilaterally <Meliza Albino Suzannedanni HUMAN RESOURCES REPRESENTATIVE - Last Filed: 04/28/25 13:33> Cardio: Jugular venous distension: no JVD <Meliza Albino Suzannedanni HUMAN RESOURCES REPRESENTATIVE - Last Filed: 04/28/25 13:33> Rate: regular rate <Meliza Albino Suzannedanni HUMAN RESOURCES REPRESENTATIVE - Last Filed: 04/28/25 13:33> Rhythm: regular rhythm <Meliza Albino Liriano HUMAN RESOURCES REPRESENTATIVE - Last Filed: 04/28/25 13:33> Heart sounds: S1 normal heart sound present and S2 normal heart sound present <Meliza Albino Liriano APRN - Last Filed: 04/28/25 13:33> GI: Inspection: normal to inspection <Meliza Liriano APRN - Last Filed: 04/28/25 13:33> GI Palp: Yes Soft to palpation and Yes No hepatosplenomegaly present <Meliza Liriano HUMAN RESOURCES REPRESENTATIVE - Last Filed: 04/28/25 13:33> Auscultation: normal bowel sounds <Meliza Liriano APRN - Last Filed: 04/28/25 13:33> Rectal Exam: deferred <Meliza Liriano HUMAN RESOURCES REPRESENTATIVE - Last Filed: 04/28/25 13:33> Skin: General skin exam: normal color and no rashes or lesions noted < Meliza Liriano HUMAN RESOURCES REPRESENTATIVE - Last Filed: 04/28/25 13:33> Neuro: General: oriented to person, oriented to place, oriented to time and patient oriented x3 <Meliza Liriano APRN - Last Filed: 04/28/25 13:33> Cranial nerves: Yes Equal, round and reactive pupils present <Meliza Liriano APRN - Last Filed: 04/28/25 13:33> Speech: normal speech <Meliza PalaciosjobROSEMARY hurstN - Last Filed: 04/28/25 13:33> Extrem: Other: RBKA <Meliza Liriano HUMAN RESOURCES REPRESENTATIVE - Last Filed: 04/28/25 13:33> Psych: Appearance: grossly normal and well kempt <Meliza Palaciosjobnatali HUMAN RESOURCES REPRESENTATIVE - Last Filed: 04/28/25 13:33> Affect: normal affect <Meliza Liriano HUMAN RESOURCES REPRESENTATIVE - Last Filed: 04/28/25 13:33> Results Labs CBC & Chem 7: 04/28/25 14:03 04/28/25 14:03 <Meliza Palaciosjobnatali HUMAN RESOURCES REPRESENTATIVE - Last Filed: 04/28/25 13:33> Labs: Short CBC 04/28/25 Range/Units 07:46 Hgb 8.2 L (12.0-15.0) g/dL Hct 26.4 L (37.0-47.0) % BMP 04/28/25 02:36 Sodium 142 Potassium 4.7 Chloride 114 H Carbon Dioxide 17 L BUN 44 H Creatinine 3.68 H Glucose 198 H Calcium 8.8 Liver Function 04/28/25 Range/Units 02:36 Total Bilirubin 0.3 (0.2-1.3) mg/dL AST 20 (14-36) U/L ALT 11 (6-35) U/L Alkaline Phosphatase 108 (38-126) U/L Albumin 3.8 (3.5-5.1) g/dL Urine 04/28/25 Range/Units 01:17 Urine Color Yellow (Yellow) Urine Appearance Cloudy H (Clear) Urine pH 5.5 (5.0-9.0) Ur Specific [place] 1.014 (1.001-1.035) Urine Protein 2+ H (Negative) mg/dL Urine Glucose (UA) 3+ H (Negative) mg/dL <Meliza Liriano, HUMAN RESOURCES REPRESENTATIVE - Last Filed: 04/28/25 13:33>
--- NOTE | 2025-04-28 09:16 | PM.IMPN ---
Progress Note: A&P Assessment and Plan (1) Metabolic acidosis: Code(s): E87.20 - Acidosis, unspecified Status: Acute (2) Acute on chronic kidney failure: Qualifiers: Acute renal failure type: unspecified Chronic kidney disease stage: unspecified stage Qualified Code(s): N17.9 - Acute kidney failure, unspecified; N18.9 - Chronic kidney disease, unspecified Code(s): N17.9 - Acute kidney failure, unspecified; N18.9 - Chronic kidney disease, unspecified Status: Acute (3) Coffee ground emesis: Code(s): K92.0 - Hematemesis Status: Acute (4) Gastroenteritis: Code(s): K52.9 - Noninfective gastroenteritis and colitis, unspecified Status: Acute (5) Anemia in chronic kidney disease (CKD): Code(s): N18.9 - Chronic kidney disease, unspecified; D63.1 - Anemia in chronic kidney disease Status: Acute (6) 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 - Unspecified visual loss Status: Acute (7) 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, with long-term current use of insulin: Code(s): E11.319 - Type 2 diabetes mellitus with unspecified diabetic retinopathy without macular edema; Z79.4 - prison (current) use of insulin Status: Acute (8) Erosive esophagitis: Code(s): K22.10 - Ulcer of esophagus without bleeding Status: Acute Plan This is a 60 year old female patient with history of diabetes with retinopathy causing blindness, stage 4 chronic kidney disease with hypertension, CHF, esophagitis, hyperlipidemia, hematemesis, suicidal ideation, chronic anemia who was admitted to the hospital due to coffee-ground emesis and the discovery of acute on chronic kidney failure. Patient reports she is not been feeling well for several days and been dealing with nausea and vomiting. Patient is blind but EMS noted brown emesis at her residence. She has a history esophagitis and gastritis for which she is on Pepcid and pantoprazole. Patient was seen at [facility] in the emergency department but her labs indicated metabolic acidosis with an anion gap elevation as well as worsening of renal failure so decision was made to transfer her to this facility. Patient received 2 L of IV in the emergency department. On arrival urine sample was collected which revealed 3+ leukocyte esterase greater than 100 wbc's. This was sent for culture. CT scan of the abdomen pelvis revealed fluid-filled small bowel loops without a transition point most likely to represent enteritis. Bowel sounds are hypoactive so ileus is also potential diagnosis. Due to coffee-ground emesis, we will hold aspirin and hold VT prophylaxis. She received 80 mg IV pantoprazole prior to transfer and we will continue 40 mg twice daily IV pantoprazole. Nausea vomiting for couple of days leading to decreased oral intake inability to keep oral medications including sodium bicarbonate and total loss of fluids from vomiting are likely reasons for acute on chronic renal failure as well as metabolic acidosis with anion gap. The gap has closed after IV fluids and IV sodium bicarb while the Cr is downtrending somewhat. Coffee-ground emesis Nausea vomiting Acute on chronic anemia with coffee-ground emesis H&H dropped to 8.2 could be hemodilutional as well. Will continue to monitor no further emesis noted. ARACELIS on CKD stage is 4 creatinine on admission 4.3 baseline creatinine around 3. Continue to monitor nephrology has been consulted. Metabolic acidosis improving on oral bicarb Hyperkalemia mild resolved. UTI with urine WBC 50 1-100 2+ leukocyte esterase. History of VRE in the past. Treated with linezolid. Will place on ceftriaxone and linezolid. Follow urine culture Enteritis Esophagitis ppi EGD 12/22/2024 with reflux esophagitis Small hiatal hernia Type 2 diabetes continue SSI Anxiety depression Resting tremor DVT prophylaxis SCDs Code status full code Subjective Date/time seen: 04/28/25 09:16 Interval history: Patient feels nauseated. No known vomiting or abdominal pain. Presented with diarrhea and coffee-ground emesis. Review of Systems Review of Systems: All systems reviewed & are unremarkable except as noted in HPI and below Exam Narrative: GENERAL: Chronically ill-appearing not in acute distress HEAD: Normocephalic, atraumatic. ENT:? Mucous membranes moist. Blind, abnormal ocular appearance CHEST: Clear to auscultation.? No respiratory distress. HEART: Regular rate and rhythm. ? Normal peripheral pulses. ABDOMEN: Soft, nontender, nondistended. Hypoactive bowel sounds. EXTREMITIES: Normal range of motion. No peripheral edema. Right BKA SKIN: Warm dry normal color NEURO: Alert and oriented x3 no focal deficits. Objective Data Vital Signs Vital Signs: Vital Signs - 24 hr 04/27/25 23:50 04/28/25 02:00 04/28/25 03:52 Temperature 98.4 F Pulse Rate 101 H 103 H Respiratory Rate 16 Blood Pressure 164/87 H Pulse Oximetry 99 Oxygen Delivery Room Air 04/28/25 04:00 04/28/25 04:00 04/28/25 06:00 Temperature 98.4 F Pulse Rate 110 H 89 96 Respiratory Rate 16 Blood Pressure 142/84 H Pulse Oximetry 100 Oxygen Delivery 04/28/25 08:15 Temperature 97.8 F Pulse Rate 98 Respiratory Rate 18 Blood Pressure 141/63 H Pulse Oximetry 100 Oxygen Delivery Intake/Output Intake/Output: Intake & Output 04/25/25 04/26/25 04/27/25 04/28/25 23:59 23:59 23:59 23:59 Output Total 400 Balance -400 Meds/Results Medications: Active Medications Generic Name Dose Route Start Last Admin Trade Name Freq PRN Reason Stop Dose Admin Albuterol/Ipratropium 3 ml 04/28/25 01:32 Ipratropium 0.5 Mg/Albuterol Sulfate 2.5 Mg Ampul.Neb 3 Ml INHALATION Q6HRT PRN Shortness Of Breath Or Wheezing Amlodipine Besylate 10 mg 04/28/25 09:00 04/28/25 08:45 Amlodipine Besylate 10 Mg Tablet PO 10 mg DAILY SHELIA Administration Dextrose 12.5 gm 04/28/25 00:29 Dextrose 50% 25 Gm/50 Ml Syringe IV PUSH PRN PRN Hypoglycemia Protocol Famotidine 40 mg 04/28/25 09:00 04/28/25 08:47 Famotidine 20 Mg Tablet PO 40 mg Q12HR SHELIA Administration Folic Acid 1 mg 04/28/25 09:00 04/28/25 08:45 Folic Acid 1 Mg Tablet PO 1 mg DAILY SHELIA Administration Gabapentin 100 mg 04/28/25 09:00 04/28/25 08:45 Gabapentin 100 Mg Capsule PO 100 mg Q12HR SHELIA Administration Glucagon 1 mg 04/28/25 00:29 Glucagon For Inj 1 Mg Vial IM PRN PRN Hypoglycemia Protocol Glucose 15 gm 04/28/25 00:29 Glucose Oral Gel 15 Gm Of Glucse In 37.5 Gm Tube PO PRN PRN Hypoglycemia Protocol Hydralazine HCl 10 mg 04/28/25 06:00 04/28/25 05:04 Hydralazine 10 Mg Tablet PO 10 mg Q8HR SHELIA Administration Lactated Ringer's 1,000 mls @ 100 mls/hr 04/28/25 00:20 04/28/25 03:27 Lr - Lactated Ringers Iv IV CONT 100 mls/hr .Q10H SHELIA Administration Dextrose 1,000 mls @ 100 mls/hr 04/28/25 00:29 Dextrose 5% 1,000 Ml IVPB PRN PRN Hypoglycemia Protocol Insulin Aspart 3 - 6 units 04/28/25 08:00 04/28/25 08:44 Insulin Aspart (*Bkc) 100 Units/Ml SUB-Q Not Given TIDWM [facility] Protocol Isosorbide Dinitrate 20 mg 04/28/25 09:00 04/28/25 08:44 Isosorbide Dinitrate 10 Mg Tablet PO 20 mg Q12HR SHELIA Administration Metoclopramide HCl 5 mg 04/28/25 01:32 Metoclopramide Hcl 5 Mg Tablet PO Q8H PRN Nausea And Vomiting Miscellaneous Information 1 each 04/28/25 00:01 Patiromer Calcium Sorbitex 8.4 Gram Powder In Packet) Is Nonformulary, Can Pt Bring From H XX 05/28/25 00:00 CLARIFY SHELIA Non-Formulary Medication 8.4 gm 04/28/25 01:45 Patiromer Calcium Sorbitex PO 05/28/25 01:44 .ever SHELIA Ondansetron HCl 4 mg 04/28/25 00:20 Ondansetron Inj 4 Mg/2 Ml Vial IV PUSH Q4H PRN Nausea And Vomiting Pantoprazole Sodium 40 mg 04/28/25 09:00 04/28/25 08:45 Pantoprazole Sodium Iv 40 Mg Vial IV PUSH 40 mg Q12HR SHELIA Administration Polyethylene Glycol 17 gm 04/28/25 12:00 Polyethylene Glycol 3350 17 Gm Powd.Pack PO NOON SHELIA Sodium Bicarbonate 1,300 mg 04/28/25 09:00 04/28/25 08:44 Sodium Bicarbonate Tab 650 Mg Tablet PO 1,300 mg BID SHELIA Administration Vitamin D 25 mcg 04/28/25 09:00 04/28/25 08:44 Cholecalciferol (Vitamin D3) 25 Mcg (1,000 Units) Tablet PO 25 mcg DAILY SHELIA Administration Labs Labs: Laboratory Results - last 24 hr 0904/28/25 04/28/25 01:17 02:36 07:46 Hgb 8.2 L Hct 26.4 L ESR 109 H Sodium 142 Potassium 4.7 Chloride 114 H Carbon Dioxide 17 L Anion Gap 11 BUN 44 H Creatinine 3.68 H Estim Creat Clear Calc Not Reportable Estimated GFR 12 L Glucose 198 H Hemoglobin A1c 6.3 H Lactic Acid 0.8 Calcium 8.8 Phosphorus 4.7 H Magnesium 2.1 Total Bilirubin 0.3 AST 20 ALT 11 Alkaline Phosphatase 108 C-Reactive Protein 1.0 Total Protein 7.4 Albumin 3.8 Procalcitonin 0.1 Urine Color Yellow Urine Appearance Cloudy H Urine pH 5.5 Ur Specific [place] 1.014 Urine Protein 2+ H Urine Glucose (UA) 3+ H Urine Ketones Trace H Ur Blood (Man) 1+ H Urine Nitrate Negative Urine Bilirubin Negative Urine Urobilinogen 0.2 Leukocyte Esterase Rfl 2+ H Urine RBC 0-2 Urine WBC 51-100 H Ur Squamous Epith Cells None seen Urine Bacteria 4+ Urine Casts 0-2
[2025-04-28] MEDS: cefTRIAXone 1 GM in SODIUM CHLORIDE 0.9% IV 50 ML 100 ML IVPB (09:52)
--- NOTE | 2025-04-28 11:22 | PC.NURSE ---
To GI Lab per [gabriellaer ], IVF paused by ROMEO RN]. Report given to [BERNIE Yi @ [id number]].
[2025-04-28 11:38] LABS: Total Protein Urine Random 109 mg/dL; Ur Ttl Prot Creatinine Ratio 2.23 mg/mg (0-0.20)
[2025-04-28 11:42] LABS: Total Protein Urine Random 110 mg/dL; Urea Random Urine 438 MG/DL
[2025-04-28] MEDS: LACTATED RINGERS 1,000 ML 150 ML IV CONT (11:47)
[2025-04-28 12:00] LABS: Urine Eos QC 2nd Tech Confirmed
--- NOTE | 2025-04-28 12:02 | WPDANESEPPF ---
Anes - Initial Pre Proc Eval Procedure: Operation Date: 04/28/25 15:00 Proposed Procedures p Esophagogastroduodenoscopy - John Blanco MD Date/Time: 04/28/25 12:02 Surgeon: Aubrey Carrion MD Pre Op Diagnosis: Metabolic acidosis Patient Data Age: 60 Gender: F Height: 1.5 m Weight: 48 kg Last Vital Signs Temp 36.7 C 04/28/25 11:28 Pulse 100 04/28/25 11:28 Resp 20 04/28/25 11:28 BP 121/44 L 04/28/25 11:28 Pulse Ox 100 04/28/25 11:28 O2 Del Method Room Air 04/28/25 11:28 Allergies Allergy/AdvReac Type Severity Reaction Status Date / Time No Known Allergies Allergy Unknown Verified 04/28/25 11:40 Home Medications ?Medication ?Instructions ?Recorded ?Confirmed ?Type amlodipine 10 mg tablet 10 mg PO DAILY 12/18/24 04/28/25 History darbepoetin jeffrey-albumin 40 mcg/mL 40 mcg subcut MONTHLY PRN low hgb 12/18/24 04/28/25 History in albumin injection gabapentin 100 mg capsule 100 mg PO BID 12/18/24 04/28/25 History hydralazine 10 mg tablet 10 mg PO TID 12/18/24 04/28/25 History isosorbide dinitrate 10 mg tablet 20 mg PO BID 12/18/24 04/28/25 History sodium bicarbonate 650 mg tablet 1,300 mg PO BID 12/18/24 04/28/25 History pantoprazole 40 mg tablet,delayed 40 mg PO Q12HR #60 tabs 12/24/24 04/28/25 Rx release famotidine 40 mg tablet 40 mg PO Q12H 02/16/25 04/28/25 History aspirin 81 mg tablet,delayed 81 mg PO DAILY 02/17/25 04/28/25 History release (Adult Low Dose Aspirin) cholecalciferol (vitamin D3) 25 25 mcg PO DAILY 02/17/25 04/28/25 History mcg (1,000 unit) capsule (Vitamin D3) patiromer calcium sorbitex 8.4 8.4 g PO .ever 02/17/25 04/28/25 History gram oral powder packet ipratropium 0.5 mg-albuterol 3 mg 3 ml inhalation Q6HRT PRN 02/20/25 04/28/25 Rx (2.5 mg base)/3 mL nebulization Shortness Of Breath Or Wheezing soln #30 vials polyethylene glycol 3350 17 gram 17 g PO NOON #14 ea 02/20/25 04/28/25 Rx oral powder packet (Miralax) metoclopramide HCl 5 mg tablet 5 mg PO Q8H PRN nausea and vomiting 02/25/25 04/28/25 History folic acid 1 mg tablet 1 mg PO DAILY 04/27/25 04/28/25 History Laboratory Tests 04/28/25 04/28/25 04/28/25 01:17 02:36 07:46 Hgb 8.2 L g/dL (12.0-15.0) Hct 26.4 L % (37.0-47.0) ESR 109 H mm/hr (0-20) Sodium 142 mmol/L (137-145) Potassium 4.7 mmol/L (3.4-5.0) Chloride 114 H mmol/L (98-107) Carbon Dioxide 17 L mmol/L (22-30) Anion Gap 11 mmol/L (4-12) BUN 44 H mg/dL (7-17) Creatinine 3.68 H mg/dL (0.7-1.0) Estim Creat Clear Calc Not Reportable Estimated GFR 12 L (59 - ) Glucose 198 H mg/dL (65-110) Hemoglobin A1c 6.3 H % (<5.7) Lactic Acid 0.8 mmol/L (0.7-2.0) Calcium 8.8 mg/dL (8.4-10.2) Phosphorus 4.7 H mg/dL (2.5-4.5) Magnesium 2.1 mg/dL (1.6-2.3) Total Bilirubin 0.3 mg/dL (0.2-1.3) AST 20 U/L (14-36) ALT 11 U/L (6-35) Alkaline Phosphatase 108 U/L (38-126) C-Reactive Protein 1.0 mg/dL (<1.0) Total Protein 7.4 g/dL (6.3-8.2) Albumin 3.8 g/dL (3.5-5.1) Procalcitonin 0.1 ng/mL Urine Color Yellow (Yellow) Urine Appearance Cloudy H (Clear) Urine pH 5.5 (5.0-9.0) Ur Specific [place] 1.014 (1.001-1.035) Urine Protein 2+ H mg/dL (Negative) Urine Glucose (UA) 3+ H mg/dL (Negative) Urine Ketones Trace H mg/dL (Negative) Ur Blood (Man) 1+ H (Negative) Urine Nitrate Negative (Negative) Urine Bilirubin Negative (Negative) Urine Urobilinogen 0.2 mg/dL (<2.0) Leukocyte Esterase Rfl 2+ H BRIAN/UL (Negative) Urine RBC 0-2 /hpf (0-2) Urine WBC 51-100 H /hpf (0-3) Ur Squamous Epith Cells None seen /hpf (Few) Urine Bacteria 4+ /hpf Urine Casts 0-2 Urine Eosinophils U Random Total Protein Ur Random Sodium Ur Random Urea Urine Creatinine Protein/Creat Ratio 2 04/28/25 04/28/25 04/28/25 11:17 11:17 11:17 Hgb Hct ESR Sodium Potassium Chloride Carbon Dioxide Anion Gap BUN Creatinine Estim Creat Clear Calc Estimated GFR Glucose Hemoglobin A1c Lactic Acid Calcium Phosphorus Magnesium Total Bilirubin AST ALT Alkaline Phosphatase C-Reactive Protein Total Protein Albumin Procalcitonin Urine Color Urine Appearance Urine pH Ur Specific [place] Urine Protein Urine Glucose (UA) Urine Ketones Ur Blood (Man) Urine Nitrate Urine Bilirubin Urine Urobilinogen Leukocyte Esterase Rfl Urine RBC Urine WBC Ur Squamous Epith Cells Urine Bacteria Urine Casts Urine Eosinophils 1 % (None Seen) U Random Total Protein 109 mg/dL 110 mg/dL Ur Random Sodium 132 meq/L Ur Random Urea 438 MG/DL Urine Creatinine 48.8 mg/dL 48.4 mg/dL Protein/Creat Ratio 2 2.23 H mg/mg (0-0.20) Patient hx anesthesia problems: none Family hx anesthesia problems: none Results Review: All pre-operative results and documents have been reviewed as part of the pre-operative evaluation. 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 Code status: Full code. Smoking status: Never smoker Second hand tobacco smoke exposure: No Additional smoking assessment comments: Per patient her spouse smokes in the home. Alcohol intake: never Substance use: never Substance use type: does not use Do You Feel Safe in your Home?: Yes Lack of Transportation: No Lack of Food: Never True Current Housing: I Have Housing Concerned About Future Housing: No Difficulty Paying Gas/Electric Bills: No Difficulty Paying for Meds: No Currently Unemployed: No Education: Don't Know Difficulty w/ Childcare or Family Care: No Living arrangements: with family Additional living arrangements comments: Lives with in [place]. They have 2 grown children. Occupation/Education: retired Additional occupation/education comments: Was in the [employer]. Spiritual care concerns: No Agree to blood products: Yes Anes - Eval Final PreProcedure Day of Procedure 04/28/25 12:02 Patient weight: normal Heart: regular rate and rhythm Lungs: clear to auscultation Airway: Mallampati scale class II Neurological: alert and oriented Last oral intake: >/= 8 hours ASA classification: IV Emergent: no Anesthetic plan: proceed Anesthesia type and monitoring: general GIVS and standard monitoring Results Review: All pre-operative results and documents have been reviewed as part of the pre-operative evaluation. Informed Consent: The patient's anesthetic plan and its attendant risks and benefits were discussed with the patient/family/POA. Questions were solicited and answers provided to the satisfaction of the patient/family/POA.
[2025-04-28] MEDS: SIMETHICONE ORAL SUSPENSION 20 MG/0.3 ML 30 ML BOTTLE 1.8 ML PO (12:12)
--- NOTE | 2025-04-28 13:22 | SUR.OPER ---
called report to BERNIE Ivan
--- NOTE | 2025-04-28 13:24 | WPDGIPROGNO ---
Progress Note: A&P Assessment and Plan (1) Coffee ground emesis: Code(s): K92.0 - Hematemesis Status: Acute Assessment and Plan: See EGD report. The patient had erosive esophagitis, same finding as a few months ago. Since this is not an acute GI bleeding, oral pantoprazole twice a day would be enough to control acid reflux. Therefore, IV pantoprazole and or famotidine can be discontinued. Suggest continuing treatment with pantoprazole same dose b.i.d. for better reflux control. Will sign off for now, please let us know if there is any other issue related to our specialty. Subjective Date/time seen: 04/28/25 13:24 Objective Data Vital Signs Vital Signs: Vital Signs - 24 hr 04/27/25 23:50 04/28/25 02:00 04/28/25 03:52 Temperature 98.4 F Pulse Rate 101 H 103 H Respiratory Rate 16 Blood Pressure 164/87 H Pulse Oximetry 99 Oxygen Delivery Room Air 04/28/25 04:00 04/28/25 04:00 04/28/25 06:00 Temperature 98.4 F Pulse Rate 110 H 89 96 Respiratory Rate 16 Blood Pressure 142/84 H Pulse Oximetry 100 Oxygen Delivery 04/28/25 08:00 04/28/25 08:00 04/28/25 08:15 Temperature 97.8 F Pulse Rate 98 98 98 Respiratory Rate 18 18 Blood Pressure 141/63 H Pulse Oximetry 100 100 Oxygen Delivery Room Air 04/28/25 10:00 04/28/25 11:28 04/28/25 13:19 Temperature 98.0 F Pulse Rate 99 100 80 Respiratory Rate 20 18 Blood Pressure 121/44 L 100/60 Pulse Oximetry 100 100 Oxygen Delivery Room Air Room Air Intake/Output Intake/Output: Intake & Output 04/25/25 04/26/25 04/27/25 04/28/25 23:59 23:59 23:59 23:59 Intake Total 795 Output Total 400 Balance 395 Meds/Results Medications: Active Medications Generic Name Dose Route Start Last Admin Trade Name Freq PRN Reason Stop Dose Admin Albuterol/Ipratropium 3 ml 04/28/25 01:32 Ipratropium 0.5 Mg/Albuterol Sulfate 2.5 Mg Ampul.Neb 3 Ml INHALATION Q6HRT PRN Shortness Of Breath Or Wheezing Amlodipine Besylate 10 mg 04/28/25 09:00 04/28/25 08:45 Amlodipine Besylate 10 Mg Tablet PO 10 mg DAILY SHELIA Administration Dextrose 12.5 gm 04/28/25 00:29 Dextrose 50% 25 Gm/50 Ml Syringe IV PUSH PRN PRN Hypoglycemia Protocol Famotidine 40 mg 04/28/25 09:00 04/28/25 08:47 Famotidine 20 Mg Tablet PO 40 mg Q12HR SHELIA Administration Folic Acid 1 mg 04/28/25 09:00 04/28/25 08:45 Folic Acid 1 Mg Tablet PO 1 mg DAILY SHELIA Administration Gabapentin 100 mg 04/28/25 09:00 04/28/25 08:45 Gabapentin 100 Mg Capsule PO 100 mg Q12HR SHELIA Administration Glucagon 1 mg 04/28/25 00:29 Glucagon For Inj 1 Mg Vial IM PRN PRN Hypoglycemia Protocol Glucose 15 gm 04/28/25 00:29 Glucose Oral Gel 15 Gm Of Glucse In 37.5 Gm Tube PO PRN PRN Hypoglycemia Protocol Hydralazine HCl 10 mg 04/28/25 06:00 04/28/25 05:04 Hydralazine 10 Mg Tablet PO 10 mg Q8HR SHELIA Administration Lactated Ringer's 1,000 mls @ 100 mls/hr 04/28/25 00:20 04/28/25 11:24 Lr - Lactated Ringers Iv IV CONT 0 mls/hr .Q10H SHELIA Infusion Dextrose 1,000 mls @ 100 mls/hr 04/28/25 00:29 Dextrose 5% 1,000 Ml IVPB PRN PRN Hypoglycemia Protocol Ceftriaxone Sodium 1 gm/ 50 mls @ 100 mls/hr 04/28/25 09:00 04/28/25 09:52 Sodium Chloride IVPB 100 mls/hr Q24H SHELAI Administration Lactated Ringer's 1,000 mls @ 150 mls/hr 04/28/25 11:45 04/28/25 11:47 Lr - Lactated Ringers Iv IV CONT 150 mls/hr .Q6H40M SHELIA Administration Linezolid 600 mg in 300 mls @ 300 mls/hr 04/28/25 13:00 Zyvox IVPB 05/04/25 21:59 Q12HR SHELIA Insulin Aspart 3 - 6 units 04/28/25 08:00 04/28/25 11:32 Insulin Aspart (*Bkc) 100 Units/Ml SUB-Q Not Given TIDWM [facility] Protocol Isosorbide Dinitrate 20 mg 04/28/25 09:00 04/28/25 08:44 Isosorbide Dinitrate 10 Mg Tablet PO 20 mg Q12HR [facility] Administration Miscellaneous Information 1 each 04/28/25 00:01 Patiromer Calcium Sorbitex 8.4 Gram Powder In Packet) Is Nonformulary, Can Pt Bring From H XX 05/28/25 00:00 CLARIFY [facility] Non-Formulary Medication 8.4 gm 04/28/25 01:45 Patiromer Calcium Sorbitex PO 05/28/25 01:44 .ever [facility] Ondansetron HCl 4 mg 04/28/25 00:20 Ondansetron Inj 4 Mg/2 Ml Vial IV PUSH Q4H PRN Nausea And Vomiting Pantoprazole Sodium 40 mg 04/28/25 21:00 Pantoprazole 40 Mg Tablet PO Q12HR [facility] Polyethylene Glycol 17 gm 04/28/25 12:00 Polyethylene Glycol 3350 17 Gm Powd.Pack PO NOON [facility] Sodium Bicarbonate 1,300 mg 04/28/25 09:00 04/28/25 08:44 Sodium Bicarbonate Tab 650 Mg Tablet PO 1,300 mg BID [facility] Administration Vitamin D 25 mcg 04/28/25 09:00 04/28/25 08:44 Cholecalciferol (Vitamin D3) 25 Mcg (1,000 Units) Tablet PO 25 mcg DAILY [facility] Administration Labs Labs: Laboratory Results - last 24 hr 04/28/25 04/28/25 04/28/25 01:17 02:36 07:46 Hgb 8.2 L Hct 26.4 L ESR 109 H Sodium 142 Potassium 4.7 Chloride 114 H Carbon Dioxide 17 L Anion Gap 11 BUN 44 H Creatinine 3.68 H Estim Creat Clear Calc Not Reportable Estimated GFR 12 L Glucose 198 H POC Capillary Glucose Hemoglobin A1c 6.3 H Lactic Acid 0.8 Calcium 8.8 Phosphorus 4.7 H Magnesium 2.1 Total Bilirubin 0.3 AST 20 ALT 11 Alkaline Phosphatase 108 C-Reactive Protein 1.0 Total Protein 7.4 Albumin 3.8 Procalcitonin 0.1 Urine Color Yellow Urine Appearance Cloudy H Urine pH 5.5 Ur Specific [place] 1.014 Urine Protein 2+ H Urine Glucose (UA) 3+ H Urine Ketones Trace H Ur Blood (Man) 1+ H Urine Nitrate Negative Urine Bilirubin Negative Urine Urobilinogen 0.2 Leukocyte Esterase Rfl 2+ H Urine RBC 0-2 Urine WBC 51-100 H Ur Squamous Epith Cells None seen Urine Bacteria 4+ Urine Casts 0-2 Urine Eosinophils U Random Total Protein Ur Random Sodium Ur Random Urea Urine Creatinine Protein/Creat Ratio 2 04/28/25 04/28/25 04/28/25 11:17 11:17 11:17 Hgb Hct ESR Sodium Potassium Chloride Carbon Dioxide Anion Gap BUN Creatinine Estim Creat Clear Calc Estimated GFR Glucose POC Capillary Glucose Hemoglobin A1c Lactic Acid Calcium Phosphorus Magnesium Total Bilirubin AST ALT Alkaline Phosphatase C-Reactive Protein Total Protein Albumin Procalcitonin Urine Color Urine Appearance Urine pH Ur Specific [place] Urine Protein Urine Glucose (UA) Urine Ketones Ur Blood (Man) Urine Nitrate Urine Bilirubin Urine Urobilinogen Leukocyte Esterase Rfl Urine RBC Urine WBC Ur Squamous Epith Cells Urine Bacteria Urine Casts Urine Eosinophils 1 U Random Total Protein 109 110 Ur Random Sodium 132 Ur Random Urea 438 Urine Creatinine 48.8 48.4 Protein/Creat Ratio 2 2.23 H 04/28/25 11:46 Hgb Hct ESR Sodium Potassium Chloride Carbon Dioxide Anion Gap BUN Creatinine Estim Creat Clear Calc Estimated GFR Glucose POC Capillary Glucose 139 H Hemoglobin A1c Lactic Acid Calcium Phosphorus Magnesium Total Bilirubin AST ALT Alkaline Phosphatase C-Reactive Protein Total Protein Albumin Procalcitonin Urine Color Urine Appearance Urine pH Ur Specific [place] Urine Protein Urine Glucose (UA) Urine Ketones Ur Blood (Man) Urine Nitrate Urine Bilirubin Urine Urobilinogen Leukocyte Esterase Rfl Urine RBC Urine WBC Ur Squamous Epith Cells Urine Bacteria Urine Casts Urine Eosinophils U Random Total Protein Ur Random Sodium Ur Random Urea Urine Creatinine Protein/Creat Ratio 2
--- NOTE | 2025-04-28 13:26 | SUR.OPER ---
called report to BERNIE Ivan
--- NOTE | 2025-04-28 13:52 | PC.NURSE ---
Returned from GI Lab. Report received from [BERNIE Ferguson @ [id number] ].
[2025-04-28] MEDS: LINEZOLID 600 MG/300 ML 600 MG/300 ML SOLN 300 MG IVPB ×2 (13:58→23:14)
[2025-04-28 14:09] LABS: Hematocrit 25.6 % (37.0-47.0); Hemoglobin 7.9 g/dL (12.0-15.0)
--- NOTE | 2025-04-28 14:10 | P.CONNP_ITS ---
Assessment and Plan Assessment and plan (1) Stage 5 chronic kidney disease: Code(s): N18.5 - Chronic kidney disease, stage 5 Status: Chronic Assessment and Plan: * long standing issue/problem * baseline creatinine has been running ~ 3.6 - 4.4mg/dl in the last year * however, fluctuates to extremes as noted with acute hospitalizations * creatinine has been as low as 2.5mg/dL (hence, she fluctuates between CKD stage 4 and stage 5) * discharged from [facility] in mid February 2025 at 3.71mg/dl * presumably secondary to diabetes, vascular disease, hypertension, and age- related change along with previous ARACELIS requiring [facility]/dialysis (Apr 2022 - Sep 2022) * follows with nephrology at the [facility] for management of her CKD (2) Coffee ground emesis: Code(s): K92.0 - Hematemesis Status: Acute Assessment and Plan: * noted brown emesis at home per EMS report * CT findings of esophagitis and enteritis * concern for erosive esophagitis... * GI following with recommendations noted * s/p EGD earlier today (on 04/28): * noted reflux esophagitis * no active bleeding lesions * on PPI * follow trend of H/H * PRBC transfusion per protocol (3) Metabolic acidosis: Code(s): E87.20 - Acidosis, unspecified Status: Acute Assessment and Plan: * presumably secondary to fluctuating renal function and vomiting * improvement noted with IVFs and sodium bicarbonate * continue oral sodium bicarbonate * follow trend of CO2 (4) UTI (urinary tract infection): Qualifiers: Hematuria presence: without hematuria Urinary tract infection type: a cute cystitis Qualified Code(s): N30.00 - Acute cystitis without hematuria Code(s): N39.0 - Urinary tract infection, site not specified Status: Acute Assessment and Plan: * admission UA suggestive * follow culture results * on antibiotics (5) Gastroenteritis: Code(s): K52.9 - Noninfective gastroenteritis and colitis, unspecified Status: Acute Assessment and Plan: * as noted on admission imaging * continue PPI and anti-emetics (6) Anemia: Code(s): D64.9 - Anemia, unspecified Status: Chronic Assessment and Plan: * acute on chronic * chronic component due to CKD * now complicated by #2 * check anemia studies * consider IV iron and/or Epogen depending on results * follow trend of H/H (7) Hypertension: Code(s): I10 - Essential (primary) hypertension Status: Chronic Assessment and Plan: * reasonable control * follow trend of hemodynamics (8) 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, with long-term current use of insulin: Code(s): E11.319 - Type 2 diabetes mellitus with unspecified diabetic retinopathy without macular edema; Z79.4 - nursing home (current) use of insulin Status: Chronic Assessment and Plan: * follow accu-cheks * glycemic control per hospitalist Greater than 20 minutes was spent in review her extensive electronic medical records available to me via the [facility] system as well as from the [facility] along with what available records we have here at [facility] as it was difficult to get a full and complete history from the patient with regard to her chronic kidney disease. She is well aware of her advanced kidney disease and the likely possibility of dialysis in the near future as aware what this is as she was on hemodialysis brief period of time at the past. I will continue to follow the patient with you while she remains hospitalized and make further recommendations as deemed necessary. Thank you for allowing me to participate in the care of this patient. L History of Present Illness Reason for Consult Consult date: 04/28/25 Reason for consult: chronic renal failure Chief Complaint Chief complaint: Metabolic acidosis History of Present Illness Narrative: The patient is a 60 female with a past medical history as outlined who was transferred to [facility] from an outside hospital ER for further evaluation coffee-ground emesis. The patient reports that she has not been feeling very well for last several days and has been having issues nausea and vomiting. Due to the nausea and vomiting, she reports poor oral intake and inability to keep her oral medications down. As the symptoms continued to progressively get worse, EMS was called for further assistance. Apparently, on their arrival to the patient's residence, they noted brown emesis on the floor a given the patient's blindness, she could not confirm the appearance of her previous episodes of vomiting. She does have a known history erosive esophagitis. She was transferred to the [facility]'s ER further assessment. Workup and evaluation at the outside hospital ER demonstrated the patient be hemodynamically stable and afebrile. Routine blood test demonstrated a normal white blood cell count, hemoglobin 10.0, normal platelet count, sodium 143, potassium 4.8, bicarb 12, BUN 48, and a creatinine 3.80. Her urinalysis is notable for 3+ leukocyte esterase and greater than [address] blood [address] scan of the abdomen pelvis demonstrated fluid filled small bowel loops without a transition point most likely representing enteritis. Given her renal dysfunction and the concern for possible upper GI bleed, she was subsequently transferred to [facility] for further evaluation and therapy. Since her admission, her hemoglobin and hematocrit has fluctuate and she did undergo an EGD earlier today which demonstrate a reflux esophagitis without any evidence acutely bleeding lesions. Her renal function has been fluctuating since her admission as well although her acidosis has improved with bicarb supplementation and IV fluids. Renal consultation was requested due to her advanced chronic kidney disease. From my discussion with the patient, her renal dysfunction/chronic kidney disease has been a longstanding issue for a significant period of time. From what I can tell, her baseline creatinine seems to fluctuate to extremes although these extremes are usually associated with acute hospitalizations. That being said, at least in the last year, her creatinine has fluctuated anywhere from 3.6-4.4 mg/dL. However, I have seen her creatinine as low as 2.5 mg/dL in the past. On her recent hospitalization [facility] [place] in February of 2025, her discharge creatinine was 3.71 mg/dL. It is presumed that her underlying chronic kidney disease is secondary to diabetes, vascular disease, hypertension, and age-related change along with her previous bouts of ARACELIS and previous need for renal replacement therapy/dialysis (in late 2021 to early 2022). She apparently follows with Nephrology at the [facility] for ongoing monitoring / management of her chronic kidney disease. Currently, at the time my evaluation, she appears to be in no acute distress. Review of Systems 2 Review of Systems: As per HPI. 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 Code status: Full code. Smoking status: Never smoker Second hand tobacco smoke exposure: No Additional smoking assessment comments: Per patient her spouse smokes in the home. Alcohol intake: never Substance use: never Substance use type: does not use Do You Feel Safe in your Home?: Yes Lack of Transportation: No Lack of Food: Never True Current Housing: I Have Housing Concerned About Future Housing: No Difficulty Paying Gas/Electric Bills: No Difficulty Paying for Meds: No Currently Unemployed: No Education: Don't Know Difficulty w/ Childcare or Family Care: No Living arrangements: with family Additional living arrangements comments: Lives with in [place]. They have 2 grown children. Occupation/Education: retired Additional occupation/education comments: Was in the [employer]. Spiritual care concerns: No Agree to blood products: Yes Meds Home Medications and Allergies Home Medications ?Medication ?Instructions ?Recorded ?Confirmed ?Type amlodipine 10 mg tablet 10 mg PO DAILY 12/18/2405/14 History darbepoetin jeffrey-albumin 40 mcg/mL 40 mcg subcut MONTH LY PRN low hgb 12/18/24 04/28/25 History in albumin injection gabapentin 100 mg capsule 100 mg PO BID 12/18/2404/28 History hydralazine 10 mg tablet 10 mg PO TID 12/18/24 History isosorbide dinitrate 10 mg tablet 20 mg PO BID 5 04/28/25 History sodium bicarbonate 650 mg tablet 1,300 mg PO BID 12/1804/28/25 History pantoprazole 40 mg tablet,delayed 40 mg PO Q12HR #60 t abs 12/24/24 04/28/25 Rx release famotidine 40 mg tablet 40 mg PO Q12H 02/16/2504/28 History aspirin 81 mg tablet,delayed 81 mg PO DAILY 02/17/25 0 04/28/25 History release (Adult Low Dose Aspirin) cholecalciferol (vitamin D3) 25 25 mcg PO DAILY 04/28/25 History mcg (1,000 unit) capsule (Vitamin D3) patiromer calcium sorbitex 8.4 8.4 g PO .ever 02/17/25 04/28/25 History gram oral powder packet ipratropium 0.5 mg-albuterol 3 mg 3 ml inhalation Q6HR T PRN 02/20/25 04/28/25 Rx (2.5 mg base)/3 mL nebulization Shortness Of Breath Or Wheezing soln #30 vials polyethylene glycol 3350 17 gram 17 g PO NOON #14 ea 0 02/20/25 04/28/25 Rx oral powder packet (Miralax) metoclopramide HCl 5 mg tablet 5 mg PO Q8H PRN nausea and vomiting 02/25/25 04/28/25 History folic acid 1 mg tablet 1 mg PO DAILY 04/27/2504/28 History Allergies Allergy/AdvReac Type Severity Reaction Status Date / Time No Known Allergies Allergy Unknown Verified 04/28/25 11:40 Vital Signs Vital Signs Temp Pulse Resp BP Pulse Ox O2 Del Method 04/28/25 14:02 98.2 F 97 18 141/70 H 100 04/28/25 13:39 93 20 136/72 100 Room Air 04/28/25 13:29 87 14 103/61 100 Room Air 04/28/25 13:19 80 18 100/60 100 Room Air 04/28/25 11:28 98.0 F 100 20 121/44 L 100 Room Air 04/28/25 10:00 99 04/28/25 08:15 97.8 F 98 18 141/63 H 100 04/28/25 08:00 98 04/28/25 08:00 98 18 100 Room Air 04/28/25 06:00 96 04/28/25 04:00 89 04/28/25 04:00 98.4 F 110 H 16 142/84 H 100 04/28/25 03:52 Room Air 04/28/25 02:00 103 H 04/27/25 23:50 98.4 F 101 H 16 164/87 H 99 Exam 2 Narrative: GENERAL APPEARANCE: chronically ill-appearing female in no acute distress HEENT: normocephalic, atraumatic, eyelid closed, nares patient NECK: no lymphadenopathy, thyromegaly, or JVD MOUTH: normal lips, teeth, and gums CARDIOVASCULAR: RRR, normal S1 and S2, no rub RESPIRATORY: clear to auscultation bilaterally ABDOMEN: soft, nontender, nondistended, positive bowel sounds present EXTREMITIES: no evidence of cyanosis, clubbing, or edema; s/p right BKA NEUROLOGICAL: alert and oriented x 3; CN II - XII intact bilaterally; no focal deficits noted Results Lab Results 05/02/25 06:06 05/01/25 05:30 Lab results: Most recent lab results Calcium 8.7 mg/dL (8.4-10.2) 04/28/25 14:03 Phosphorus 4.5 mg/dL (2.5-4.5) 04/28/25 14:03 Magnesium 2.1 mg/dL (1.6-2.3) 04/28/25 02:36 Urine Creatinine 48.4 mg/dL 04/28/25 11:17 Urine Creatinine 48.8 mg/dL 04/28/25 11:17
[2025-04-28 14:21] LABS: Creatine Kinase 107 U/L (30-135)
[2025-04-28 14:22] LABS: Albumin Level 3.7 g/dL (3.5-5.1); Anion Gap 8 mmol/L (4-12); Blood Urea Nitrogen 43 mg/dL (7-17); Calcium 8.7 mg/dL (8.4-10.2); Carbon Dioxide 22 mmol/L (22-30); Chloride 115 mmol/L (98-107); Estimated Glomerular Filt Rate 12; Glucose 134 mg/dL (65-110); Potassium 4.5 mmol/L (3.4-5.0); Sodium 145 mmol/L (137-145)
[2025-04-28 20:54] LABS: Hematocrit 23.3 % (37.0-47.0); Hemoglobin 7.2 g/dL (12.0-15.0)
[2025-04-28] MEDS: PANTOPRAZOLE 40 MG TABLET PO (21:51)
[2025-04-29 00:36] VITALS: BP 156/69; PULSE 86; RESP 20; TEMP 36.8; O2SAT 100
[2025-04-29 04:37] LABS: Hematocrit 21.5 % (37.0-47.0); Immature Granulocyte Percent A 0.4 % (0-0.5); Lymphocytes Absolute Auto 3.48 K/mm3 (0.9-3.2); Mean Corpuscular HGB Conc 31.6 g/dl (32-36); Mean Corpuscular Hemoglobin 28.7 pg (26-34); Mean Corpuscular Volume 90.7 fl (80-100); Nucleated Red Blood Cells Absolute Auto 0.000 K/mm3 (0.0-0.012); Nucleated Red Blood Cells Perc 0.0 % (0.0-0.2); Platelet Count Result 265 k/mm3 (150-375); Red Blood Count 2.37 M/mm3 (4.2-5.4); White Blood Count 9.7 K/mm3 (4.5-10.0)
[2025-04-29 04:40] LABS: Hemoglobin 6.8 g/dL (12.0-15.0)
[2025-04-29 05:00] LABS: Iron 44 ug/dL (37-170)
[2025-04-29 05:04] LABS: Alanine Aminotransferase 8 U/L (6-35); Albumin Level 2.8 g/dL (3.5-5.1); Alkaline Phosphatase 81 U/L (38-126); Anion Gap 7 mmol/L (4-12); Aspartate Amino Transferase 18 U/L (14-36); Bilirubin,Total 0.2 mg/dL (0.2-1.3); Blood Urea Nitrogen 39 mg/dL (7-17); Calcium 7.6 mg/dL (8.4-10.2); Carbon Dioxide 20 mmol/L (22-30); Chloride 108 mmol/L (98-107); Estimated Glomerular Filt Rate 14; Glucose 127 mg/dL (65-110); Magnesium 1.8 mg/dL (1.6-2.3); Potassium 4.3 mmol/L (3.4-5.0); Sodium 135 mmol/L (137-145); Total Protein 5.7 g/dL (6.3-8.2)
[2025-04-29 05:10] LABS: Percent Iron Saturation 24 % (20-50)
--- NOTE | 2025-04-29 05:26 | PC.NURSE ---
pts hemoglobin was 6.8 so our hospitalist Napoleon Gordon was called and a unit of PRBC was recommended. Took consent form to pt room educated her on blood transfusion protocol and possible reactions. pt is of sound mind and decided to not sign the consent and refused the blood transfusion at this time.
[2025-04-29 05:42] LABS: Ferritin 81.30 ng/mL (11.1-264)
[2025-04-29 06:15] LABS: Vitamin B12 224.0 pg/mL (239-931)
--- NOTE | 2025-04-29 06:52 | P.PNCROSS_ITS ---
Event Note Event Note Event Note: I was notified of critical hemoglobin level down to 6.8. Patient did receive s ignificant amount of IV fluids the other day but also had coffee-ground emesis. Ordered 1 unit PRBCs patient refused when the nurse attempted to get consent.
[2025-04-29 08:00] VITALS: BP 151/73; PULSE 83; RESP 22; TEMP 36.9; O2SAT 100
[2025-04-29] MEDS: ISOSORBIDE DINITRATE 10 MG TABLET 20 MG PO ×2 (08:21→20:23)
[2025-04-29] MEDS: SODIUM BICARBONATE TAB 650 MG TABLET 1300 MG PO ×2 (08:21→17:12)
[2025-04-29] MEDS: CHOLECALCIFEROL (VITAMIN D3) 25 MCG (1,000 UNITS) TABLET PO (08:21)
[2025-04-29] MEDS: FOLIC ACID 1 MG TABLET PO (08:23)
[2025-04-29] MEDS: PANTOPRAZOLE 40 MG TABLET PO ×2 (08:24→20:23)
[2025-04-29] MEDS: FAMOTIDINE 20 MG TABLET 40 MG PO ×2 (08:24→20:23)
--- NOTE | 2025-04-29 08:24 | P.PNIM_ITS ---
Progress Note: A&P Assessment and Plan (1) Metabolic acidosis: Code(s): E87.20 - Acidosis, unspecified Status: Acute (2) Acute on chronic kidney failure: Qualifiers: Acute renal failure type: unspecified Chronic kidney disease stage: unspecified stage Qualified Code(s): N17.9 - Acute kidney failure, unspecified; N18.9 - Chronic kidney disease, unspecified Code(s): N17.9 - Acute kidney failure, unspecified; N18.9 - Chronic kidney disease, unspecified Status: Acute (3) Coffee ground emesis: Code(s): K92.0 - Hematemesis Status: Acute (4) Gastroenteritis: Code(s): K52.9 - Noninfective gastroenteritis and colitis, unspecified Status: Acute (5) Anemia in chronic kidney disease (CKD): Qualifiers: Chronic kidney disease stage: stage 4 (GFR 15-29) Qualified Code(s): N18.4 - Chronic kidney disease, stage 4 (severe); D63.1 - Anemia in chronic kidney disease Code(s): N18.9 - Chronic kidney disease, unspecified; D63.1 - Anemia in chronic kidney disease Status: Acute (6) 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 - Unspecified visual loss Status: Acute (7) 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, with long-term current use of insulin: Code(s): E11.319 - Type 2 diabetes mellitus with unspecified diabetic retinopathy without macular edema; Z79.4 - terminal block assembler (current) use of insulin Status: Acute (8) Erosive esophagitis: Code(s): K22.10 - Ulcer of esophagus without bleeding Status: Acute Plan This is a 60 year old female patient with history of diabetes with retinopathy causing blindness, stage 4 chronic kidney disease with hypertension, CHF, esophagitis, hyperlipidemia, hematemesis, suicidal ideation, chronic anemia who was admitted to the hospital due to coffee-ground emesis and the discovery of acute on chronic kidney failure. Patient reports she is not been feeling well for several days and been dealing with nausea and vomiting. Patient is blind but EMS noted brown emesis at her residence. She has a history esophagitis and gastritis for which she is on Pepcid and pantoprazole. Patient was seen at [facility] in the emergency department but her labs indicated metabolic acidosis with an anion gap elevation as well as worsening of renal failure so decision was made to transfer her to this facility. Patient received 2 L of IV in the emergency department. On arrival urine sample was collected which revealed 3+ leukocyte esterase greater than 100 wbc's. This was sent for culture. CT scan of the abdomen pelvis revealed fluid-filled small bowel loops without a transition point most likely to represent enteritis. Bowel sounds are hypoactive so ileus is also potential diagnosis. Due to coffee-ground emesis, we will hold aspirin and hold VT prophylaxis. She received 80 mg IV pantoprazole prior to transfer and we will continue 40 mg twice daily IV pantoprazole. Nausea vomiting for couple of days leading to decreased oral intake inability to keep oral medications including sodium bicarbonate and total loss of fluids from vomiting are likely reasons for acute on chronic renal failure as well as metabolic acidosis with anion gap. The gap has closed after IV fluids and IV sodium bicarb while the Cr is downtrending somewhat. Coffee-ground emesis status post EGD which showed findings of reflux esophagitis continue on PPI per GI recommendations Nausea vomiting this could be related to underlying UTI. Currently resolved with treatment. Acute on chronic anemia with coffee-ground emesis H&H dropped to 8.2 could be hemodilutional as well. Will continue to monitor no further emesis noted. H&H down to 6.9 today. Recommended 1 unit of PRBC transfusion which she refuses. ARACELIS on CKD stage is 4 creatinine on admission 4.3 baseline creatinine around 3. Continue to monitor nephrology has been consulted. Creatinine improving. Will stop IV fluid as she is eating Metabolic acidosis improving on oral bicarb Hyperkalemia mild resolved. UTI with urine WBC 50 1-100 2+ leukocyte esterase. History of VRE in the past. Treated with linezolid. Will place on ceftriaxone and linezolid. Follow urine culture Enteritis Esophagitis ppi EGD 12/22/2024 with reflux esophagitis Small hiatal hernia Type 2 diabetes continue SSI Anxiety depression Resting tremor DVT prophylaxis SCDs Code status full code Subjective Date/time seen: 04/29/25 08:24 Interval history: Patient feeling better. Patient wants to go home. Refused transfusion for hemoglobin of 6.8 earlier today. Reiterated recommendations. No more nauseous or throwing up. Denies abdominal pain. Review of Systems Review of Systems: All systems reviewed & are unremarkable except as noted in HPI and below Exam Narrative: GENERAL: Chronically ill-appearing not in acute distress HEAD: Normocephalic, atraumatic. ENT:? Mucous membranes moist. Blind, abnormal ocular appearance CHEST: Clear to auscultation.? No respiratory distress. HEART: Regular rate and rhythm. ? Normal peripheral pulses. ABDOMEN: Soft, nontender, nondistended. Hypoactive bowel sounds. EXTREMITIES: Normal range of motion. No peripheral edema. Right BKA SKIN: Warm dry normal color NEURO: Alert and oriented x3 no focal deficits. Objective Data Vital Signs Vital Signs: Vital Signs - 24 hr 04/28/25 10:00 04/28/25 11:28 04/28/25 13:19 Temperature 98.0 F Pulse Rate 99 100 80 Respiratory Rate 20 18 Blood Pressure 121/44 L 100/60 Pulse Oximetry 100 100 Oxygen Delivery Room Air Room Air 04/28/25 13:29 04/28/25 13:39 04/28/25 14:02 Temperature 98.2 F Pulse Rate 87 93 97 Respiratory Rate 14 20 18 Blood Pressure 103/61 136/72 141/70 H Pulse Oximetry 100 100 100 Oxygen Delivery Room Air Room Air 04/28/25 15:51 04/28/25 19:47 04/28/25 20:00 Temperature 97.1 F L 98.4 F Pulse Rate 97 88 Respiratory Rate 16 15 Blood Pressure 119/56 L 133/57 L Pulse Oximetry 100 100 Oxygen Delivery Room Air 04/29/25 00:36 Temperature 98.3 F Pulse Rate 86 Respiratory Rate 20 Blood Pressure 156/69 H Pulse Oximetry 100 Oxygen Delivery Intake/Output Intake/Output: Intake & Output 04/26/25 04/27/25 04/28/25 04/29/25 23:59 23:59 23:59 23:59 Intake Total 2120 300 Output Total 850 Balance 1270 300 Meds/Results Medications: Active Medications Generic Name Dose Route Start Last Admin Trade Name Freq PRN Reason Stop Dose Admin Albuterol/Ipratropium 3 ml 04/28/25 01:32 Ipratropium 0.5 Mg/Albuterol Sulfate 2.5 Mg Ampul.Neb 3 Ml INHALATION Q6HRT PRN Shortness Of Breath Or Wheezing Amlodipine Besylate 10 mg 04/28/25 09:00 04/28/25 08:45 Amlodipine Besylate 10 Mg Tablet PO 10 mg DAILY SHELIA Administration Dextrose 12.5 gm 04/28/25 00:29 Dextrose 50% 25 Gm/50 Ml Syringe IV PUSH PRN PRN Hypoglycemia Protocol Epoetin Jaleel-epbx 20,000 units 04/29/25 09:00 Epoetin Jaleel-Epbx 20,000 Units/Ml Vial SUB-Q 04/29/25 09:01 ONCE ONE Epoetin Jaleel-epbx 10,000 units 04/30/25 09:00 Epoetin Jaleel-Epbx 10,000 Units/Ml Vial SUB-Q TUTHSA@09 SHELIA Famotidine 40 mg 04/28/25 09:00 04/28/25 21:51 Famotidine 20 Mg Tablet PO 40 mg Q12HR SHELIA Administration Folic Acid 1 mg 04/28/25 09:00 04/28/25 08:45 Folic Acid 1 Mg Tablet PO 1 mg DAILY SHELIA Administration Gabapentin 100 mg 04/28/25 09:00 04/28/25 21:51 Gabapentin 100 Mg Capsule PO 100 mg Q12HR SHELIA Administration Glucagon 1 mg 04/28/25 00:29 Glucagon For Inj 1 Mg Vial IM PRN PRN Hypoglycemia Protocol Glucose 15 gm 04/28/25 00:29 Glucose Oral Gel 15 Gm Of Glucse In 37.5 Gm Tube PO PRN PRN Hypoglycemia Protocol Hydralazine HCl 10 mg 04/28/25 06:00 04/29/25 06:58 Hydralazine 10 Mg Tablet PO Not Given Q8HR SHELIA Dextrose 1,000 mls @ 100 mls/hr 04/28/25 00:29 Dextrose 5% 1,000 Ml IVPB PRN PRN Hypoglycemia Protocol Ceftriaxone Sodium 1 gm/ 50 mls @ 100 mls/hr 04/28/25 09:00 04/28/25 10:20 Sodium Chloride IVPB Infused Q24H SHELIA Infusion Linezolid 600 mg in 300 mls @ 300 mls/hr 04/28/25 13:00 04/28/25 23:14 Zyvox IVPB 05/04/25 21:59 300 mls/hr Q12HR SHELIA Administration Sodium Chloride 250 mls @ 30 mls/hr 04/29/25 04:43 Normal Saline Iv IV CONT 04/29/25 13:02 .Q8H20M STA Insulin Aspart 3 - 6 units 04/28/25 08:00 04/28/25 16:27 Insulin Aspart (*Bkc) 100 Units/Ml SUB-Q Not Given TIDWM [facility] Protocol Isosorbide Dinitrate 20 mg 04/28/25 09:00 04/28/25 21:50 Isosorbide Dinitrate 10 Mg Tablet PO 20 mg Q12HR SHELIA Administration Non-Formulary Medication 8.4 gm 04/28/25 01:45 Patiromer Calcium Sorbitex PO 05/28/25 01:44 .ever SHELIA Ondansetron HCl 4 mg 04/28/25 00:20 Ondansetron Inj 4 Mg/2 Ml Vial IV PUSH Q4H PRN Nausea And Vomiting Pantoprazole Sodium 40 mg 04/28/25 21:00 04/28/25 21:51 Pantoprazole 40 Mg Tablet PO 40 mg Q12HR SHELIA Administration Polyethylene Glycol 17 gm 04/28/25 12:00 04/28/25 13:58 Polyethylene Glycol 3350 17 Gm Powd.Pack PO Not Given NOON SHELIA Sodium Bicarbonate 1,300 mg 04/28/25 09:00 04/28/25 17:20 Sodium Bicarbonate Tab 650 Mg Tablet PO 1,300 mg BID SHELIA Administration Vitamin D 25 mcg 04/28/25 09:00 04/28/25 08:44 Cholecalciferol (Vitamin D3) 25 Mcg (1,000 Units) Tablet PO 25 mcg DAILY SHELIA Administration Radiology Results: ITS Impressions Renal Ultrasound 04/28/25 16:52 IMPRESSION: 1. No hydronephrosis. 2. Right kidney is mildly hyperechoic suggestive of medical renal disease. 3. Limited study as above. If symptoms persist or worsen, consider a short-term follow-up study or additional imaging for further assessment. Labs Labs: Laboratory Results - last 24 hr 04/28/25 04/28/25 04/28/25 11:17 11:17 11:17 WBC RBC Hgb Hct MCV MCH MCHC RDW Plt Count MPV Immature Gran % (Auto) Neut % (Auto) Lymph % (Auto) [place] % (Auto) Eos % (Auto) Baso % (Auto) Lymph # (Auto) [place] # (Auto) Eos # (Auto) Baso # (Auto) Abs Immat Gran (auto) Absolute Neuts (auto) Absolute Nucleated RBC Nucleated RBC % Sodium Potassium Chloride Carbon Dioxide Anion Gap BUN Creatinine Estim Creat Clear Calc Estimated GFR Glucose POC Capillary Glucose Calcium Phosphorus Magnesium Iron TIBC % Saturation Ferritin Total Bilirubin AST ALT Alkaline Phosphatase Total Creatine Kinase Total Protein Albumin Vitamin B12 Folate Urine Eosinophils 1 U Random Total Protein 109 110 Ur Random Sodium 132 Ur Random Urea 438 Urine Creatinine 48.8 48.4 Protein/Creat Ratio 2 2.23 H C. difficile (PCR) Blood Type Antibody Screen Crossmatch 04/28/25 04/28/25 04/28/25 11:46 13:38 14:03 WBC RBC Hgb 7.9 L Hct 25.6 L MCV MCH MCHC RDW Plt Count MPV Immature Gran % (Auto) Neut % (Auto) Lymph % (Auto) [place] % (Auto) Eos % (Auto) Baso % (Auto) Lymph # (Auto) [place] # (Auto) Eos # (Auto) Baso # (Auto) Abs Immat Gran (auto) Absolute Neuts (auto) Absolute Nucleated RBC Nucleated RBC % Sodium 145 Potassium 4.5 Chloride 115 H Carbon Dioxide 22 Anion Gap 8 BUN 43 H Creatinine 3.73 H Estim Creat Clear Calc Not Reportable Estimated GFR 12 L Glucose 134 H POC Capillary Glucose 139 H 131 H Calcium 8.7 Phosphorus 4.5 Magnesium Iron TIBC % Saturation Ferritin Total Bilirubin AST ALT Alkaline Phosphatase Total Creatine Kinase 107 Total Protein Albumin 3.7 Vitamin B12 Folate Urine Eosinophils U Random Total Protein Ur Random Sodium Ur Random Urea Urine Creatinine Protein/Creat Ratio 2 C. difficile (PCR) Blood Type Antibody Screen Crossmatch 04/28/25 04/28/25 04/28/25 14:13 14:57 20:12 WBC RBC Hgb Hct MCV MCH MCHC RDW Plt Count MPV Immature Gran % (Auto) Neut % (Auto) Lymph % (Auto) [place] % (Auto) Eos % (Auto) Baso % (Auto) Lymph # (Auto) [place] # (Auto) Eos # (Auto) Baso # (Auto) Abs Immat Gran (auto) Absolute Neuts (auto) Absolute Nucleated RBC Nucleated RBC % Sodium Potassium Chloride Carbon Dioxide Anion Gap BUN Creatinine Estim Creat Clear Calc Estimated GFR Glucose POC Capillary Glucose 199 H 192 H Calcium Phosphorus Magnesium Iron TIBC % Saturation Ferritin Total Bilirubin AST ALT Alkaline Phosphatase Total Creatine Kinase Total Protein Albumin Vitamin B12 Folate Urine Eosinophils U Random Total Protein Ur Random Sodium Ur Random Urea Urine Creatinine Protein/Creat Ratio 2 C. difficile (PCR) Cancelled Blood Type Antibody Screen Crossmatch 04/28/25 04/29/25 04/29/25 20:46 04:13 05:17 WBC 9.7 RBC 2.37 L Hgb 7.2 L 6.8 L* Hct 23.3 L 21.5 L MCV 90.7 MCH 28.7 MCHC 31.6 L RDW 14.2 Plt Count 265 MPV 10.2 Immature Gran % (Auto) 0.4 Neut % (Auto) 51.3 Lymph % (Auto) 35.7 [place] % (Auto) 9.9 H Eos % (Auto) 2.2 Baso % (Auto) 0.5 Lymph # (Auto) 3.48 H [place] # (Auto) 1.0 H Eos # (Auto) 0.2 Baso # (Auto) 0.1 Abs Immat Gran (auto) 0.04 H Absolute Neuts (auto) 5.0 Absolute Nucleated RBC 0.000 Nucleated RBC % 0.0 Sodium 135 L Potassium 4.3 Chloride 108 H Carbon Dioxide 20 L Anion Gap 7 BUN 39 H Creatinine 3.35 H Estim Creat Clear Calc Not Reportable Estimated GFR 14 L Glucose 127 H POC Capillary Glucose Calcium 7.6 L Phosphorus 3.9 Magnesium 1.8 Iron 44 TIBC 180 L % Saturation 24 Ferritin 81.30 Total Bilirubin 0.2 AST 18 ALT 8 Alkaline Phosphatase 81 Total Creatine Kinase Total Protein 5.7 L Albumin 2.8 L Vitamin B12 224.0 L Folate > 20.0 H Urine Eosinophils U Random Total Protein Ur Random Sodium Ur Random Urea Urine Creatinine Protein/Creat Ratio 2 C. difficile (PCR) Blood Type A Negative Antibody Screen Negative Crossmatch See Detail 04/29/25 07:10 WBC RBC Hgb Hct MCV MCH MCHC RDW Plt Count MPV Immature Gran % (Auto) Neut % (Auto) Lymph % (Auto) [place] % (Auto) Eos % (Auto) Baso % (Auto) Lymph # (Auto) [place] # (Auto) Eos # (Auto) Baso # (Auto) Abs Immat Gran (auto) Absolute Neuts (auto) Absolute Nucleated RBC Nucleated RBC % Sodium Potassium Chloride Carbon Dioxide Anion Gap BUN Creatinine Estim Creat Clear Calc Estimated GFR Glucose POC Capillary Glucose 103 Calcium Phosphorus Magnesium Iron TIBC % Saturation Ferritin Total Bilirubin AST ALT Alkaline Phosphatase Total Creatine Kinase Total Protein Albumin Vitamin B12 Folate Urine Eosinophils U Random Total Protein Ur Random Sodium Ur Random Urea Urine Creatinine Protein/Creat Ratio 2 C. difficile (PCR) Blood Type Antibody Screen Crossmatch
[2025-04-29] MEDS: GABAPENTIN 100 MG CAPSULE PO ×2 (08:25→20:24)
[2025-04-29] MEDS: cefTRIAXone 1 GM in SODIUM CHLORIDE 0.9% IV 50 ML 100 ML IVPB (08:31)
[2025-04-29] MEDS: LINEZOLID 600 MG/300 ML 600 MG/300 ML SOLN 300 MG IVPB ×2 (08:35→20:24)
[2025-04-29] MEDS: EPOETIN ALFA-EPBX 20,000 UNITS/ML VIAL 20000 UNITS SUB-Q (08:36)
[2025-04-29] MEDS: CYANOCOBALAMIN 1,000 MCG TABLET 1000 MCG PO (08:53)
[2025-04-29 12:00] VITALS: BP 151/68; PULSE 81; RESP 16; TEMP 36.8; O2SAT 99
--- NOTE | 2025-04-29 12:10 | P.PNNP_ITS ---
Progress Note: A&P Assessment and Plan (1) Stage 5 chronic kidney disease: Code(s): N18.5 - Chronic kidney disease, stage 5 Status: Chronic Assessment and Plan: * long standing issue/problem * baseline creatinine has been running ~ 3.6 - 4.4mg/dl in the last year * however, fluctuates to extremes as noted with acute hospitalizations * creatinine has been as low as 2.5mg/dL (hence, she fluctuates between CKD stage 4 and stage 5) * discharged from [facility] in mid February 2025 at 3.71mg/dl * presumably secondary to diabetes, vascular disease, hypertension, and age- related change along with previous ARACELIS requiring [facility]/dialysis (Apr 2022 - Sep 2022) * follows with nephrology at the [facility] for management of her CKD (2) Coffee ground emesis: Code(s): K92.0 - Hematemesis Status: Acute Assessment and Plan: * noted brown emesis at home per EMS report * CT findings of esophagitis and enteritis * concern for erosive esophagitis... * GI following with recommendations noted * s/p EGD earlier today (on 04/28): * noted reflux esophagitis * no active bleeding lesions * on PPI * follow trend of H/H * PRBC transfusion per protocol (3) Metabolic acidosis: Code(s): E87.20 - Acidosis, unspecified Status: Acute Assessment and Plan: * presumably secondary to fluctuating renal function and vomiting * improvement noted with IVFs and sodium bicarbonate * continue oral sodium bicarbonate * follow trend of CO2 (4) UTI (urinary tract infection): Qualifiers: Hematuria presence: without hematuria Urinary tract infection type: acute cystitis Qualified Code(s): N30.00 - Acute cystitis without hematuria Code(s): N39.0 - Urinary tract infection, site not specified Status: Acute Assessment and Plan: * admission UA suggestive * follow culture results - GNB noted * on antibiotics (5) Gastroenteritis: Code(s): K52.9 - Noninfective gastroenteritis and colitis, unspecified Status: Acute Assessment and Plan: * as noted on admission imaging * continue PPI and anti-emetics (6) Anemia: Code(s): D64.9 - Anemia, unspecified Status: Chronic Assessment and Plan: * acute on chronic * chronic component due to CKD * now complicated by #2 * adequate iron stores by anemia studies * Epogen while hospitalized * refusing PRBC transfusion * follow trend of H/H (7) Hypertension: Code(s): I10 - Essential (primary) hypertension Status: Chronic Assessment and Plan: * reasonable control * follow trend of hemodynamics (8) 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 Subjective Date/time seen: 04/29/25 12:10 Interval history: Follow-up for chronic kidney disease. No apparent distress noted at the time of my visit; renal function/creatinine doing a bit better with reasonable urine output noted; low H/H noted this AM but patient refused PRBC transfusion; dosed with Epogen earlier today; no further nausea or vomiting reported a the time of my visit. Exam Narrative: General: elderly but WD/WN female in NAD Heart: normal S1 and S2; no rub Lungs: clear to auscultation Abdomen: soft, nontender, nondistended, positive bowel sounds Extremities: no cyanosis or clubbing; no edema Skin: warm and dry Objective Data Vital Signs Vital Signs: Vital Signs Temp Pulse Resp BP Pulse Ox O2 Del Method 04/29/25 12:00 98.2 F 81 16 151/68 H 99 04/29/25 08:00 98.4 F 83 22 H 151/73 H 100 04/29/25 00:36 98.3 F 86 20 156/69 H 100 04/28/25 20:00 Room Air 04/28/25 19:47 98.4 F 88 15 133/57 L 100 Intake/Output Intake/Output: Intake & Output 04/26/25 04/27/25 04/28/25 04/29/25 23:59 23:59 23:59 23:59 Intake Total 2120 2130 Output Total 850 1550 Balance 1270 580 Meds/Results Medications: Active Medications Generic Name Dose Route Start Last Admin Trade Name Freq PRN Reason Stop Dose Admin Albuterol/Ipratropium 3 ml 04/28/25 01:32 Ipratropium 0.5 Mg/Albuterol Sulfate 2.5 Mg Ampul.Neb 3 Ml INHALATION Q6HRT PRN Shortness Of Breath Or Wheezing Amlodipine Besylate 10 mg 04/28/25 09:00 04/29/25 08:24 Amlodipine Besylate 10 Mg Tablet PO 10 mg DAILY HSELIA Administration Cyanocobalamin 1,000 mcg 04/29/25 09:00 04/29/25 08:53 Cyanocobalamin 1,000 Mcg Tablet PO 1,000 mcg QAM SHELIA Administration Dextrose 12.5 gm 04/28/25 00:29 Dextrose 50% 25 Gm/50 Ml Syringe IV PUSH PRN PRN Hypoglycemia Protocol Epoetin Jaleel-epbx 10,000 units 04/30/25 09:00 Epoetin Jaleel-Epbx 10,000 Units/Ml Vial SUB-Q TUTHSA@09 SHELIA Famotidine 40 mg 04/28/25 09:00 04/29/25 08:24 Famotidine 20 Mg Tablet PO 40 mg Q12HR SHELIA Administration Folic Acid 1 mg 04/28/25 09:00 04/29/25 08:23 Folic Acid 1 Mg Tablet PO 1 mg DAILY SHELIA Administration Gabapentin 100 mg 04/28/25 09:00 04/29/25 08:25 Gabapentin 100 Mg Capsule PO 100 mg Q12HR SHELIA Administration Glucagon 1 mg 04/28/25 00:29 Glucagon For Inj 1 Mg Vial IM PRN PRN Hypoglycemia Protocol Glucose 15 gm 04/28/25 00:29 Glucose Oral Gel 15 Gm Of Glucse In 37.5 Gm Tube PO PRN PRN Hypoglycemia Protocol Hydralazine HCl 10 mg 04/28/25 06:00 04/29/25 14:26 Hydralazine 10 Mg Tablet PO 10 mg Q8HR SHELIA Administration Dextrose 1,000 mls @ 100 mls/hr 04/28/25 00:29 Dextrose 5% 1,000 Ml IVPB PRN PRN Hypoglycemia Protocol Ceftriaxone Sodium 1 gm/ 50 mls @ 100 mls/hr 04/28/25 09:00 04/29/25 08:31 Sodium Chloride IVPB 100 mls/hr Q24H SHELIA Administration Linezolid 600 mg in 300 mls @ 300 mls/hr 04/28/25 13:00 04/29/25 14:27 Zyvox IVPB 05/04/25 21:59 Infused Q12HR SHELIA Infusion Insulin Aspart 3 - 6 units 04/28/25 08:00 04/29/25 17:07 Insulin Aspart (*Bkc) 100 Units/Ml SUB-Q Not Given TIDWM [facility] Protocol Isosorbide Dinitrate 20 mg 04/28/25 09:00 04/29/25 08:21 Isosorbide Dinitrate 10 Mg Tablet PO 20 mg Q12HR SHELIA Administration Ondansetron HCl 4 mg 04/28/25 00:20 Ondansetron Inj 4 Mg/2 Ml Vial IV PUSH Q4H PRN Nausea And Vomiting Pantoprazole Sodium 40 mg 04/28/25 21:00 04/29/25 08:24 Pantoprazole 40 Mg Tablet PO 40 mg Q12HR SHELIA Administration Polyethylene Glycol 17 gm 04/28/25 12:00 04/29/25 11:43 Polyethylene Glycol 3350 17 Gm Powd.Pack PO Not Given NOON SHELIA Sodium Bicarbonate 1,300 mg 04/28/25 09:00 04/29/25 17:12 Sodium Bicarbonate Tab 650 Mg Tablet PO 1,300 mg BID SHELIA Administration Vitamin D 25 mcg 04/28/25 09:00 04/29/25 08:21 Cholecalciferol (Vitamin D3) 25 Mcg (1,000 Units) Tablet PO 25 mcg DAILY SHELIA Administration Radiology Results: ITS Impressions Renal Ultrasound 04/28/25 16:52 IMPRESSION: 1. No hydronephrosis. 2. Right kidney is mildly hyperechoic suggestive of medical renal disease. 3. Limited study as above. If symptoms persist or worsen, consider a short-term follow-up study or additional imaging for further assessment. Labs Labs: Laboratory Tests 04/29/25 04:13 WBC 9.7 Hgb 6.8 L* Hct 21.5 L Plt Count 265 Sodium 135 L Potassium 4.3 Chloride 108 H Carbon Dioxide 20 L Anion Gap 7 BUN 39 H Creatinine 3.35 H Estim Creat Clear Calc Not Reportable Estimated GFR 14 L Glucose 127 H Calcium 7.6 L Phosphorus 3.9 Magnesium 1.8 Iron 44 TIBC 180 L % Saturation 24 Ferritin 81.30 Total Bilirubin 0.2 AST 18 ALT 8 Alkaline Phosphatase 81 Total Protein 5.7 L Albumin 2.8 L Vitamin B12 224.0 L Folate > 20.0 H Microbiology 04/28/25 02:36 Blood Blood Culture - Preliminary 04/28/25 02:36 Blood Blood Culture - Preliminary
--- NOTE | 2025-04-29 14:46 | PC.NURSE ---
This patient, Deanna Partida, was transferred to [ [id number]] on 04/29/25 at 1446. Personal belongings sent with patient. Report given to [ BERNIE Swain @ [phone]]. Appropriate documentation sent with patient.
--- NOTE | 2025-04-29 14:50 | PC.NURSE ---
This patient, Deanna Partida, was received from IMU, Marzena GIBBS on 04/29/25 at 1450. Patient/family oriented to unit policies and routines
[2025-04-29 18:05] LABS: Hematocrit 24.9 % (37.0-47.0); Hemoglobin 7.7 g/dL (12.0-15.0)
[2025-04-29 20:43] VITALS: BP 129/63; PULSE 85; RESP 18; TEMP 36.9; O2SAT 100
[2025-04-30 05:10] VITALS: BP 144/69; PULSE 67; RESP 18; TEMP 37.3; O2SAT 99
[2025-04-30 06:07] LABS: Hematocrit 23.3 % (37.0-47.0); Hemoglobin 7.2 g/dL (12.0-15.0); Immature Granulocyte Percent A 0.4 % (0-0.5); Lymphocytes Absolute Auto 3.41 K/mm3 (0.9-3.2); Mean Corpuscular HGB Conc 30.9 g/dl (32-36); Mean Corpuscular Hemoglobin 28.6 pg (26-34); Mean Corpuscular Volume 92.5 fl (80-100); Nucleated Red Blood Cells Absolute Auto 0.000 K/mm3 (0.0-0.012); Nucleated Red Blood Cells Perc 0.0 % (0.0-0.2); Platelet Count Result 280 k/mm3 (150-375); Red Blood Count 2.52 M/mm3 (4.2-5.4); White Blood Count 8.3 K/mm3 (4.5-10.0)
[2025-04-30 06:29] LABS: Alanine Aminotransferase 8 U/L (6-35); Albumin Level 3.0 g/dL (3.5-5.1); Alkaline Phosphatase 83 U/L (38-126); Anion Gap 6 mmol/L (4-12); Aspartate Amino Transferase 20 U/L (14-36); Bilirubin,Total 0.2 mg/dL (0.2-1.3); Blood Urea Nitrogen 35 mg/dL (7-17); Calcium 7.7 mg/dL (8.4-10.2); Carbon Dioxide 22 mmol/L (22-30); Chloride 107 mmol/L (98-107); Estimated Glomerular Filt Rate 11; Glucose 151 mg/dL (65-110); Magnesium 1.9 mg/dL (1.6-2.3); Potassium 4.5 mmol/L (3.4-5.0); Sodium 135 mmol/L (137-145); Total Protein 5.9 g/dL (6.3-8.2)
--- NOTE | 2025-04-30 08:16 | PM.IMPN ---
Progress Note: A&P Assessment and Plan (1) Metabolic acidosis: Code(s): E87.20 - Acidosis, unspecified Status: Acute (2) Acute on chronic kidney failure: Qualifiers: Acute renal failure type: unspecified Chronic kidney disease stage: unspecified stage Qualified Code(s): N17.9 - Acute kidney failure, unspecified; N18.9 - Chronic kidney disease, unspecified Code(s): N17.9 - Acute kidney failure, unspecified; N18.9 - Chronic kidney disease, unspecified Status: Acute (3) Coffee ground emesis: Code(s): K92.0 - Hematemesis Status: Acute (4) Gastroenteritis: Code(s): K52.9 - Noninfective gastroenteritis and colitis, unspecified Status: Acute (5) Anemia in chronic kidney disease (CKD): Qualifiers: Chronic kidney disease stage: stage 4 (GFR 15-29) Qualified Code(s): N18.4 - Chronic kidney disease, stage 4 (severe); D63.1 - Anemia in chronic kidney disease Code(s): N18.9 - Chronic kidney disease, unspecified; D63.1 - Anemia in chronic kidney disease Status: Acute (6) 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 - Unspecified visual loss Status: Acute (7) 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, with long-term current use of insulin: Code(s): E11.319 - Type 2 diabetes mellitus with unspecified diabetic retinopathy without macular edema; 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 Patient reports she is not been feeling well for several days and been dealing with nausea and vomiting. Patient is blind but EMS noted brown emesis at her residence. She has a history esophagitis and gastritis for which she is on Pepcid and pantoprazole. [place] [facility] [place] but her labs indicated metabolic acidosis with an anion gap elevation as well as worsening of renal failure so decision was made to transfer her to this facility. Patient received 2 L of IV in the emergency department. On arrival urine sample was collected which revealed 3+ leukocyte esterase greater than 100 wbc's. This was sent for culture. CT scan of the abdomen pelvis revealed fluid-filled small bowel loops without a transition point most likely to represent enteritis. Bowel sounds are hypoactive so ileus is also potential diagnosis. Due to coffee-ground emesis, we will hold aspirin and hold VT prophylaxis. She received 80 mg IV pantoprazole prior to transfer and we will continue 40 mg twice daily IV pantoprazole. Nausea vomiting for couple of days leading to decreased oral intake inability to keep oral medications including sodium bicarbonate and total loss of fluids from vomiting are likely reasons for acute on chronic renal failure as well as metabolic acidosis with anion gap. The gap has closed after IV fluids and IV sodium bicarb while the Cr is downtrending somewhat. Coffee-ground emesis status post EGD which showed findings of reflux esophagitis continue on PPI per GI recommendations Nausea vomiting this could be related to underlying UTI. Currently resolved with treatment. Acute on chronic anemia with coffee-ground emesis H&H dropped to 8.2 could be hemodilutional as well. Will continue to monitor no further emesis noted. H&H down to 6.9 today. Recommended 1 unit of PRBC transfusion which she refuses. She received Epogen shot. H&H improved will continue to monitor ARACELIS on CKD stage is 4 creatinine on admission 4.3 baseline creatinine around 3. Continue to monitor nephrology has been consulted. Creatinine improving. IV fluids stopped. Encourage oral intake Metabolic acidosis improving on oral bicarb Hyperkalemia mild resolved. UTI with urine WBC 50 1-100 2+ leukocyte esterase. History of VRE in the past. Treated with linezolid. Will place on ceftriaxone and linezolid. Follow urine culture which is growing Gram-negative bacilli. Awaiting identification Enteritis Esophagitis ppi EGD 12/22/2024 with reflux esophagitis Small hiatal hernia Type 2 diabetes continue SSI Anxiety depression Resting tremor DVT prophylaxis SCDs Code status full code Subjective Date/time seen: 04/30/25 08:16 Interval history: And she refused transfusion. Received Epogen. Repeat H&H was improved. She denies any new complaints today. Urine culture growing Gram-negative bacilli. Awaiting identification. Review of Systems Review of Systems: All systems reviewed & are unremarkable except as noted in HPI and below Exam Narrative: GENERAL: Chronically ill-appearing not in acute distress HEAD: Normocephalic, atraumatic. ENT:? Mucous membranes moist. Blind, abnormal ocular appearance CHEST: Clear to auscultation.? No respiratory distress. HEART: Regular rate and rhythm. ? Normal peripheral pulses. ABDOMEN: Soft, nontender, nondistended. Hypoactive bowel sounds. EXTREMITIES: Normal range of motion. No peripheral edema. Right BKA SKIN: Warm dry normal color NEURO: Alert and oriented x3 no focal deficits. Objective Data Vital Signs Vital Signs: Vital Signs - 24 hr 04/29/25 12:00 04/29/25 20:00 04/29/25 20:43 Temperature 98.2 F 98.4 F Pulse Rate 81 85 Respiratory Rate 16 18 Blood Pressure 151/68 H 129/63 Pulse Oximetry 99 100 Oxygen Delivery Room Air 04/30/25 05:10 Temperature 99.1 F Pulse Rate 67 Respiratory Rate 18 Blood Pressure 144/69 H Pulse Oximetry 99 Oxygen Delivery Intake/Output Intake/Output: Intake & Output 04/27/25 04/28/25 04/29/25 04/30/25 23:59 23:59 23:59 23:59 Intake Total 2120 2130 100 Output Total 850 1550 Balance 1270 580 100 Meds/Results Medications: Active Medications Generic Name Dose Route Start Last Admin Trade Name Freq PRN Reason Stop Dose Admin Albuterol/Ipratropium 3 ml 04/28/25 01:32 Ipratropium 0.5 Mg/Albuterol Sulfate 2.5 Mg Ampul.Neb 3 Ml INHALATION Q6HRT PRN Shortness Of Breath Or Wheezing Amlodipine Besylate 10 mg 04/28/25 09:00 04/29/25 08:24 Amlodipine Besylate 10 Mg Tablet PO 10 mg DAILY SHELIA Administration Cyanocobalamin 1,000 mcg 04/29/25 09:00 04/29/25 08:53 Cyanocobalamin 1,000 Mcg Tablet PO 1,000 mcg QAM SHELIA Administration Dextrose 12.5 gm 04/28/25 00:29 Dextrose 50% 25 Gm/50 Ml Syringe IV PUSH PRN PRN Hypoglycemia Protocol Epoetin Jaleel-epbx 10,000 units 04/30/25 09:00 Epoetin Jaleel-Epbx 10,000 Units/Ml Vial SUB-Q TUTHSA@09 SHELIA Famotidine 40 mg 04/28/25 09:00 04/29/25 20:23 Famotidine 20 Mg Tablet PO 40 mg Q12HR SHELIA Administration Folic Acid 1 mg 04/28/25 09:00 04/29/25 08:23 Folic Acid 1 Mg Tablet PO 1 mg DAILY SHELIA Administration Gabapentin 100 mg 04/28/25 09:00 04/29/25 20:24 Gabapentin 100 Mg Capsule PO 100 mg Q12HR SHELIA Administration Glucagon 1 mg 04/28/25 00:29 Glucagon For Inj 1 Mg Vial IM PRN PRN Hypoglycemia Protocol Glucose 15 gm 04/28/25 00:29 Glucose Oral Gel 15 Gm Of Glucse In 37.5 Gm Tube PO PRN PRN Hypoglycemia Protocol Hydralazine HCl 10 mg 04/28/25 06:00 04/30/25 06:31 Hydralazine 10 Mg Tablet PO 10 mg Q8HR SHELIA Administration Dextrose 1,000 mls @ 100 mls/hr 04/28/25 00:29 Dextrose 5% 1,000 Ml IVPB PRN PRN Hypoglycemia Protocol Ceftriaxone Sodium 1 gm/ 50 mls @ 100 mls/hr 04/28/25 09:00 04/29/25 08:31 Sodium Chloride IVPB 100 mls/hr Q24H SHELIA Administration Linezolid 600 mg in 300 mls @ 300 mls/hr 04/28/25 13:00 04/29/25 20:24 Zyvox IVPB 05/04/25 21:59 300 mls/hr Q12HR SHELIA Administration Insulin Aspart 3 - 6 units 04/28/25 08:00 04/29/25 17:07 Insulin Aspart (*Bkc) 100 Units/Ml SUB-Q Not Given TIDWM [facility] Protocol Isosorbide Dinitrate 20 mg 04/28/25 09:00 04/29/25 20:23 Isosorbide Dinitrate 10 Mg Tablet PO 20 mg Q12HR SHELIA Administration Ondansetron HCl 4 mg 04/28/25 00:20 Ondansetron Inj 4 Mg/2 Ml Vial IV PUSH Q4H PRN Nausea And Vomiting Pantoprazole Sodium 40 mg 04/28/25 21:00 04/29/25 20:23 Pantoprazole 40 Mg Tablet PO 40 mg Q12HR SHELIA Administration Polyethylene Glycol 17 gm 04/28/25 12:00 04/29/25 11:43 Polyethylene Glycol 3350 17 Gm Powd.Pack PO Not Given NOON SHELIA Sodium Bicarbonate 1,300 mg 04/28/25 09:00 04/29/25 17:12 Sodium Bicarbonate Tab 650 Mg Tablet PO 1,300 mg BID SHELIA Administration Vitamin D 25 mcg 04/28/25 09:00 04/29/25 08:21 Cholecalciferol (Vitamin D3) 25 Mcg (1,000 Units) Tablet PO 25 mcg DAILY SHELIA Administration Radiology Results: ITS Impressions Renal Ultrasound 04/28/25 16:52 IMPRESSION: 1. No hydronephrosis. 2. Right kidney is mildly hyperechoic suggestive of medical renal disease. 3. Limited study as above. If symptoms persist or worsen, consider a short-term follow-up study or additional imaging for further assessment. Labs Labs: Laboratory Results - last 24 hr 04/28/25 04/29/25 04/29/25 07:32 11:37 16:55 WBC RBC Hgb Hct MCV MCH MCHC RDW Plt Count MPV Immature Gran % (Auto) Neut % (Auto) Lymph % (Auto) Jackson % (Auto) Eos % (Auto) Baso % (Auto) Lymph # (Auto) Jackson # (Auto) Eos # (Auto) Baso # (Auto) Abs Immat Gran (auto) Absolute Neuts (auto) Absolute Nucleated RBC Nucleated RBC % Sodium Potassium Chloride Carbon Dioxide Anion Gap BUN Creatinine Estim Creat Clear Calc Estimated GFR Glucose POC Capillary Glucose 120 H 195 H 156 H Calcium Phosphorus Magnesium Total Bilirubin AST ALT Alkaline Phosphatase Total Protein Albumin 04/29/25 04/29/25 04/30/25 18:01 20:46 05:31 WBC 8.3 RBC 2.52 L Hgb 7.7 L 7.2 L Hct 24.9 L 23.3 L MCV 92.5 MCH 28.6 MCHC 30.9 L RDW 14.1 Plt Count 280 MPV 10.3 Immature Gran % (Auto) 0.4 Neut % (Auto) 46.1 Lymph % (Auto) 41.0 Jackson % (Auto) 9.1 H Eos % (Auto) 2.9 Baso % (Auto) 0.5 Lymph # (Auto) 3.41 H Jackson # (Auto) 0.8 H Eos # (Auto) 0.2 Baso # (Auto) 0.0 Abs Immat Gran (auto) 0.03 Absolute Neuts (auto) 3.8 Absolute Nucleated RBC 0.000 Nucleated RBC % 0.0 Sodium 135 L Potassium 4.5 Chloride 107 Carbon Dioxide 22 Anion Gap 6 BUN 35 H Creatinine 3.99 H Estim Creat Clear Calc Not Reportable Estimated GFR 11 L Glucose 151 H POC Capillary Glucose 176 H Calcium 7.7 L Phosphorus 4.4 Magnesium 1.9 Total Bilirubin 0.2 AST 20 ALT 8 Alkaline Phosphatase 83 Total Protein 5.9 L Albumin 3.0 L
[2025-04-30] MEDS: CHOLECALCIFEROL (VITAMIN D3) 25 MCG (1,000 UNITS) TABLET PO (09:45)
[2025-04-30] MEDS: ISOSORBIDE DINITRATE 10 MG TABLET 20 MG PO ×2 (09:45→20:18)
[2025-04-30] MEDS: PANTOPRAZOLE 40 MG TABLET PO ×2 (09:45→20:17)
[2025-04-30] MEDS: GABAPENTIN 100 MG CAPSULE PO ×2 (09:45→20:17)
[2025-04-30] MEDS: CYANOCOBALAMIN 1,000 MCG TABLET 1000 MCG PO (09:45)
[2025-04-30] MEDS: FAMOTIDINE 20 MG TABLET 40 MG PO ×2 (09:45→20:17)
[2025-04-30] MEDS: SODIUM BICARBONATE TAB 650 MG TABLET 1300 MG PO ×2 (09:45→17:12)
[2025-04-30] MEDS: FOLIC ACID 1 MG TABLET PO (09:45)
[2025-04-30] MEDS: EPOETIN ALFA-EPBX 10,000 UNITS/ML VIAL 10000 UNITS SUB-Q (09:47)
[2025-04-30] MEDS: cefTRIAXone 1 GM in SODIUM CHLORIDE 0.9% IV 50 ML 100 ML IVPB (10:00)
[2025-04-30] MEDS: LINEZOLID 600 MG/300 ML 600 MG/300 ML SOLN 300 MG IVPB (10:32)
[2025-04-30] MEDS: INSULIN ASPART (*BKC) 100 UNITS/ML SUB-Q (12:05)
--- NOTE | 2025-04-30 13:20 | P.PNNP_ITS ---
Progress Note: A&P Assessment and Plan (1) Stage 5 chronic kidney disease: Code(s): N18.5 - Chronic kidney disease, stage 5 Status: Chronic Assessment and Plan: * long standing issue/problem * baseline creatinine has been running ~ 3.6 - 4.4mg/dl in the last year * however, fluctuates to extremes as noted with acute hospitalizations * creatinine has been as low as 2.5mg/dL (hence, she fluctuates between CKD stage 4 and stage 5) * discharged from 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 * GI following with recommendations noted * s/p EGD (on 04/28): * noted reflux esophagitis * no active bleeding lesions * on PPI * follow trend of H/H * PRBC transfusion per protocol (3) Metabolic acidosis: Code(s): E87.20 - Acidosis, unspecified Status: Acute Assessment and Plan: * resolving * presumably secondary to fluctuating renal function and vomiting * improvement noted with IVFs and sodium bicarbonate * continue oral sodium bicarbonate * follow trend of CO2 (4) UTI (urinary tract infection): Qualifiers: Hematuria presence: without hematuria Urinary tract infection type: a cute cystitis Qualified Code(s): N30.00 - Acute cystitis without hematuria Code(s): N39.0 - Urinary tract infection, site not specified Status: Acute Assessment and Plan: * admission UA suggestive * follow culture results - GNB noted * on antibiotics (5) Gastroenteritis: Code(s): K52.9 - Noninfective gastroenteritis and colitis, unspecified Status: Acute Assessment and Plan: * as noted on admission imaging * continue PPI and anti-emetics (6) Anemia: Code(s): D64.9 - Anemia, unspecified Status: Chronic Assessment and Plan: * acute on chronic * chronic component due to CKD * now complicated by #2 * adequate iron stores by anemia studies * Epogen while hospitalized * refusing PRBC transfusion * follow trend of H/H (7) Hypertension: Code(s): I10 - Essential (primary) hypertension Status: Chronic Assessment and Plan: * reasonable control * follow trend of hemodynamics (8) 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 L Subjective Date/time seen: 04/30/25 13:20 Interval history: Follow-up for chronic kidney disease. Refused PRBC transfusion yesterday but H/H a tad better today -- dosed with Epogen yesterday and on scheduled dosing while hospitalized; renal function/creatinine fluctuates but with in baseline readings; no apparent distress noted at the the time of my visit. Exam 2 Narrative: General: WD/WN female in NAD Heart: normal S1 and S2; no rub Lungs: clear to auscultation Abdomen: soft, nontender, nondistended, positive bowel sounds Extremities: no cyanosis or clubbing; no edema Skin: warm and intact Objective Data Vital Signs Vital Signs: Vital Signs Temp Pulse Resp BP Pulse Ox O2 Del Method 04/30/25 13:00 97.0 F L 86 18 147/65 H 100 04/30/25 09:44 Room Air 04/30/25 05:10 99.1 F 67 18 144/69 H 99 04/29/25 20:43 98.4 F 85 18 129/63 100 04/29/25 20:00 Room Air Intake/Output Intake/Output: Intake & Output 04/27/25 04/28/25 04/29/25 04/30/25 23:59 23:59 23:59 23:59 Intake Total 2120 2480 1050 Output Total 850 1550 Balance 6233 762 6795 Meds/Results Medications: Active Medications Generic Name Dose Route Start Last Admin Trade Name Freq PRN Reason Stop Dose Admin Albuterol/Ipratropium 3 ml 04/28/25 01:32 Ipratropium 0.5 Mg/Albuterol Sulfate 2.5 Mg Ampul.Neb 3 Ml INHALATION Q6HRT PRN Shortness Of Breath Or Wheezing Amlodipine Besylate 10 mg 04/28/25 09:00 04/30/25 09:45 Amlodipine Besylate 10 Mg Tablet PO 10 mg DAILY SHELIA Administration Cyanocobalamin 1,000 mcg 04/29/25 09:00 04/30/25 09:45 Cyanocobalamin 1,000 Mcg Tablet PO 1,000 mcg QAM SHELIA Administration Dextrose 12.5 gm 04/28/25 00:29 Dextrose 50% 25 Gm/50 Ml Syringe IV PUSH PRN PRN Hypoglycemia Protocol Epoetin Jaleel-epbx 10,000 units 04/30/25 09:00 04/30/25 09:47 Epoetin Jaleel-Epbx 10,000 Units/Ml Vial SUB-Q 10,000 units TUTHSA@09 SHELIA Administration Famotidine 40 mg 04/28/25 09:00 04/30/25 09:45 Famotidine 20 Mg Tablet PO 40 mg Q12HR SHELIA Administration Folic Acid 1 mg 04/28/25 09:00 04/30/25 09:45 Folic Acid 1 Mg Tablet PO 1 mg DAILY SHELIA Administration Gabapentin 100 mg 04/28/25 09:00 04/30/25 09:45 Gabapentin 100 Mg Capsule PO 100 mg Q12HR SHELIA Administration Glucagon 1 mg 04/28/25 00:29 Glucagon For Inj 1 Mg Vial IM PRN PRN Hypoglycemia Protocol Glucose 15 gm 04/28/25 00:29 Glucose Oral Gel 15 Gm Of Glucse In 37.5 Gm Tube PO PRN PRN Hypoglycemia Protocol Hydralazine HCl 10 mg 04/28/25 06:00 04/30/25 14:21 Hydralazine 10 Mg Tablet PO 10 mg Q8HR SHELIA Administration Dextrose 1,000 mls @ 100 mls/hr 04/28/25 00:29 Dextrose 5% 1,000 Ml IVPB PRN PRN Hypoglycemia Protocol Ceftriaxone Sodium 1 gm/ 50 mls @ 100 mls/hr 04/28/25 09:00 04/30/25 10:30 Sodium Chloride IVPB Infused Q24H SHELIA Infusion Insulin Aspart 3 - 6 units 04/28/25 08:00 04/30/25 17:13 Insulin Aspart (*Bkc) 100 Units/Ml SUB-Q Not Given TIDWM [facility] [place] Protocol Isosorbide Dinitrate 20 mg 04/28/25 09:00 04/30/25 09:45 Isosorbide Dinitrate 10 Mg Tablet PO 20 mg Q12HR SHELIA Administration Ondansetron HCl 4 mg 04/28/25 00:20 Ondansetron Inj 4 Mg/2 Ml Vial IV PUSH Q4H PRN Nausea And Vomiting Pantoprazole Sodium 40 mg 04/28/25 21:00 04/30/25 09:45 Pantoprazole 40 Mg Tablet PO 40 mg Q12HR SHELIA Administration Polyethylene Glycol 17 gm 04/28/25 12:00 04/30/25 12:00 Polyethylene Glycol 3350 17 Gm Powd.Pack PO Not Given NOON SHELIA Sodium Bicarbonate 1,300 mg 04/28/25 09:00 04/30/25 17:12 Sodium Bicarbonate Tab 650 Mg Tablet PO 1,300 mg BID SHELIA Administration Vitamin D 25 mcg 04/28/25 09:00 04/30/25 09:45 Cholecalciferol (Vitamin D3) 25 Mcg (1,000 Units) Tablet PO 25 mcg DAILY SHELIA Administration Radiology Results: ITS Impressions Renal Ultrasound 04/28/25 16:52 IMPRESSION: 1. No hydronephrosis. 2. Right kidney is mildly hyperechoic suggestive of medical renal disease. 3. Limited study as above. If symptoms persist or worsen, consider a short-term follow-up study or additional imaging for further assessment. Labs Labs: Laboratory Tests 04/30/25 05:31 04/30/25 05:31 Calcium 7.7 L Phosphorus 4.4 Magnesium 1.9 Total Bilirubin 0.2 AST 20 ALT 8 Alkaline Phosphatase 83 Total Protein 5.9 L Albumin 3.0 L Microbiology 04/28/25 14:13 Stool Salmonella/Shigella Screen - Final 04/28/25 14:13 Stool Shiga Toxin (EIA) - Final 04/28/25 02:36 Blood Blood Culture - Preliminary 04/28/25 02:36 Blood Blood Culture - Preliminary 04/28/25 01:17 Urine Clean Catch - Preliminary Gram negative bacilli isolated
[2025-04-30 16:00] VITALS: BP 147/65; PULSE 86; RESP 18; TEMP 36.1; O2SAT 100
[2025-04-30 21:18] VITALS: BP 153/79; PULSE 88; RESP 18; TEMP 37.1; O2SAT 100
[2025-05-01 05:10] VITALS: BP 152/78; PULSE 85; RESP 18; TEMP 36.4; O2SAT 99
[2025-05-01 05:41] LABS: Hematocrit 26.1 % (37.0-47.0); Hemoglobin 7.4 g/dL (12.0-15.0); Immature Granulocyte Percent A 0.5 % (0-0.5); Lymphocytes Absolute Auto 2.71 K/mm3 (0.9-3.2); Mean Corpuscular HGB Conc 28.4 g/dl (32-36); Mean Corpuscular Hemoglobin 28.9 pg (26-34); Mean Corpuscular Volume 102.0 fl (80-100); Nucleated Red Blood Cells Absolute Auto 0.000 K/mm3 (0.0-0.012); Nucleated Red Blood Cells Perc 0.0 % (0.0-0.2); Platelet Count Result 218 k/mm3 (150-375); Red Blood Count 2.56 M/mm3 (4.2-5.4); White Blood Count 7.6 K/mm3 (4.5-10.0)
[2025-05-01 05:53] LABS: Alanine Aminotransferase 6 U/L (6-35); Albumin Level 2.9 g/dL (3.5-5.1); Alkaline Phosphatase 76 U/L (38-126); Anion Gap 7 mmol/L (4-12); Aspartate Amino Transferase 15 U/L (14-36); Bilirubin,Total 0.3 mg/dL (0.2-1.3); Blood Urea Nitrogen 38 mg/dL (7-17); Calcium 7.9 mg/dL (8.4-10.2); Carbon Dioxide 17 mmol/L (22-30); Chloride 110 mmol/L (98-107); Estimated Glomerular Filt Rate 13; Glucose 139 mg/dL (65-110); Magnesium 2.0 mg/dL (1.6-2.3); Potassium 4.9 mmol/L (3.4-5.0); Sodium 134 mmol/L (137-145); Total Protein 5.8 g/dL (6.3-8.2)
[2025-05-01 07:56] LABS: Anisocytosis Occasional; Hypochromasia Occasional; Schistocytes None Seen
[2025-05-01] MEDS: GABAPENTIN 100 MG CAPSULE PO ×2 (08:11→21:44)
[2025-05-01] MEDS: CHOLECALCIFEROL (VITAMIN D3) 25 MCG (1,000 UNITS) TABLET PO (08:11)
[2025-05-01] MEDS: FAMOTIDINE 20 MG TABLET 40 MG PO (08:11)
[2025-05-01] MEDS: PANTOPRAZOLE 40 MG TABLET PO ×2 (08:11→21:44)
[2025-05-01] MEDS: FOLIC ACID 1 MG TABLET PO (08:11)
[2025-05-01] MEDS: CYANOCOBALAMIN 1,000 MCG TABLET 1000 MCG PO (08:11)
[2025-05-01] MEDS: SODIUM BICARBONATE TAB 650 MG TABLET 1300 MG PO ×2 (08:11→16:54)
[2025-05-01] MEDS: cefTRIAXone 1 GM in SODIUM CHLORIDE 0.9% IV 50 ML 100 ML IVPB (08:12)
[2025-05-01] MEDS: ISOSORBIDE DINITRATE 10 MG TABLET 20 MG PO ×2 (08:12→21:44)
[2025-05-01] MEDS: ONDANSETRON INJ 4 MG/2 ML VIAL IV PUSH (08:32)
--- NOTE | 2025-05-01 09:53 | P.PNNP_ITS ---
Progress Note: A&P Assessment and Plan (1) Stage 5 chronic kidney disease: Code(s): N18.5 - Chronic kidney disease, stage 5 Status: Chronic Assessment and Plan: * long standing issue/problem * baseline creatinine has been running ~ 3.6 - 4.4mg/dl in the last year * however, fluctuates to extremes as noted with acute hospitalizations * creatinine has been as low as 2.5mg/dL (hence, she fluctuates between CKD stage 4 and stage 5) * discharged from [facility] in mid February 2025 at 3.71mg/dl * presumably secondary to diabetes, vascular disease, hypertension, and age- related change along with 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 * GI following with recommendations noted * s/p EGD (on 04/28): * noted reflux esophagitis * no active bleeding lesions * on PPI * follow trend of H/H * PRBC transfusion per protocol (3) Metabolic acidosis: Code(s): E87.20 - Acidosis, unspecified Status: Acute Assessment and Plan: * resolving * presumably secondary to fluctuating renal function and vomiting * improvement noted with IVFs and sodium bicarbonate * continue oral sodium bicarbonate * follow trend of CO2 (4) UTI (urinary tract infection): Qualifiers: Hematuria presence: without hematuria Urinary tract infection type: a cute cystitis Qualified Code(s): N30.00 - Acute cystitis without hematuria Code(s): N39.0 - Urinary tract infection, site not specified Status: Acute Assessment and Plan: * admission UA suggestive * follow culture results - E.coli noted * on antibiotics (5) Gastroenteritis: Code(s): K52.9 - Noninfective gastroenteritis and colitis, unspecified Status: Acute Assessment and Plan: * as noted on admission imaging * continue PPI and anti-emetics (6) Anemia: Code(s): D64.9 - Anemia, unspecified Status: Chronic Assessment and Plan: * acute on chronic * chronic component due to CKD * now complicated by #2 * adequate iron stores by anemia studies * Epogen while hospitalized * refusing PRBC transfusion * follow trend of H/H (7) Hypertension: Code(s): I10 - Essential (primary) hypertension Status: Chronic Assessment and Plan: * reasonable control * follow trend of hemodynamics (8) 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 Will continue to follow. L Subjective Date/time seen: 05/01/25 09:53 Interval history: Follow-up for chronic kidney disease. Feels reasonably well and in no apparent distress; somewhat frustrated as she is anxious to go home; renal function/creatinine remains relatively stable with stable electrolytes and urine output; H/H holding steady as well; no other acute complaints voiced. Exam 2 Narrative: General: WD/WN female in NAD Heart: normal S1 and S2; no rub Lungs: clear to auscultation Abdomen: soft, nontender, nondistended, positive bowel sounds Extremities: no cyanosis or clubbing; no edema Skin: warm and intact Objective Data Vital Signs Vital Signs: Vital Signs - 24 hr 04/30/25 20:00 04/30/25 21:18 05/01/25 05:10 Temperature 98.8 F 97.6 F Pulse Rate 88 85 Respiratory Rate 18 18 Blood Pressure 153/79 H 152/78 H Pulse Oximetry 100 99 Oxygen Delivery Room Air Intake/Output Intake/Output: Intake & Output 04/28/25 04/29/25 04/30/25 05/01/25 23:59 23:59 23:59 23:59 Intake Total 2120 2480 1890 780 Output Total 850 1550 200 600 Balance 3046 305 0383 180 Meds/Results Medications: Active Medications Generic Name Dose Route Start Last Admin Trade Name Freq PRN Reason Stop Dose Admin Albuterol/Ipratropium 3 ml 04/28/25 01:32 Ipratropium 0.5 Mg/Albuterol Sulfate 2.5 Mg Ampul.Neb 3 Ml INHALATION Q6HRT PRN Shortness Of Breath Or Wheezing Amlodipine Besylate 10 mg 04/28/25 09:00 05/01/25 08:11 Amlodipine Besylate 10 Mg Tablet PO 10 mg DAILY SHELIA Administration Cyanocobalamin 1,000 mcg 04/29/25 09:00 05/01/25 08:11 Cyanocobalamin 1,000 Mcg Tablet PO 1,000 mcg QAM SHELIA Administration Dextrose 12.5 gm 04/28/25 00:29 Dextrose 50% 25 Gm/50 Ml Syringe IV PUSH PRN PRN Hypoglycemia Protocol Epoetin Jaleel-epbx 10,000 units 04/30/25 09:00 04/30/25 09:47 Epoetin Jaleel-Epbx 10,000 Units/Ml Vial SUB-Q 10,000 units TUTHSA@09 SHELIA Administration Folic Acid 1 mg 04/28/25 09:00 05/01/25 08:11 Folic Acid 1 Mg Tablet PO 1 mg DAILY SHELIA Administration Gabapentin 100 mg 04/28/25 09:00 05/01/25 08:11 Gabapentin 100 Mg Capsule PO 100 mg Q12HR SHELIA Administration Glucagon 1 mg 04/28/25 00:29 Glucagon For Inj 1 Mg Vial IM PRN PRN Hypoglycemia Protocol Glucose 15 gm 04/28/25 00:29 Glucose Oral Gel 15 Gm Of Glucse In 37.5 Gm Tube PO PRN PRN Hypoglycemia Protocol Hydralazine HCl 10 mg 04/28/25 06:00 05/01/25 13:12 Hydralazine 10 Mg Tablet PO 10 mg Q8HR SHELIA Administration Dextrose 1,000 mls @ 100 mls/hr 04/28/25 00:29 Dextrose 5% 1,000 Ml IVPB PRN PRN Hypoglycemia Protocol Ceftriaxone Sodium 1 gm/ 50 mls @ 100 mls/hr 04/28/25 09:00 05/01/25 08:12 Sodium Chloride IVPB 100 mls/hr Q24H SHELIA Administration Insulin Aspart 3 - 6 units 04/28/25 08:00 05/01/25 17:08 Insulin Aspart (*Bkc) 100 Units/Ml SUB-Q 3 units TIDWM SHELIA Administration Protocol Isosorbide Dinitrate 20 mg 04/28/25 09:00 05/01/25 08:12 Isosorbide Dinitrate 10 Mg Tablet PO 20 mg Q12HR SHELIA Administration Ondansetron HCl 4 mg 04/28/25 00:20 05/01/25 08:32 Ondansetron Inj 4 Mg/2 Ml Vial IV PUSH 4 mg Q4H PRN Administration Nausea And Vomiting Pantoprazole Sodium 40 mg 04/28/25 21:00 05/01/25 08:11 Pantoprazole 40 Mg Tablet PO 40 mg Q12HR SHELIA Administration Polyethylene Glycol 17 gm 04/28/25 12:00 05/01/25 13:12 Polyethylene Glycol 3350 17 Gm Powd.Pack PO 17 gm NOON SHELIA Administration Sodium Bicarbonate 1,300 mg 04/28/25 09:00 05/01/25 16:54 Sodium Bicarbonate Tab 650 Mg Tablet PO 1,300 mg BID SHELIA Administration Vitamin D 25 mcg 04/28/25 09:00 05/01/25 08:11 Cholecalciferol (Vitamin D3) 25 Mcg (1,000 Units) Tablet PO 25 mcg DAILY SHELIA Administration Radiology Results: ITS Impressions Renal Ultrasound 04/28/25 16:52 IMPRESSION: 1. No hydronephrosis. 2. Right kidney is mildly hyperechoic suggestive of medical renal disease. 3. Limited study as above. If symptoms persist or worsen, consider a short-term follow-up study or additional imaging for further assessment. Labs Labs: Laboratory Tests 05/01/25 05:30 05/01/25 05:30 Calcium 7.9 L Phosphorus 4.5 Magnesium 2.0 Total Bilirubin 0.3 AST 15 ALT 6 Alkaline Phosphatase 76 Total Protein 5.8 L Albumin 2.9 L Microbiology 04/28/25 01:17 Urine Clean Catch - Final Escherichia Coli 04/28/25 02:36 Blood Blood Culture - Preliminary 04/28/25 02:36 Blood Blood Culture - Preliminary 04/28/25 14:13 Stool Salmonella/Shigella Screen - Final 04/28/25 14:13 Stool Shiga Toxin (EIA) - Final
--- NOTE | 2025-05-01 10:22 | P.PNIM_ITS ---
Progress Note: A&P Assessment and Plan (1) Metabolic acidosis: Code(s): E87.20 - Acidosis, unspecified Status: Acute (2) Acute on chronic kidney failure: Qualifiers: Acute renal failure type: unspecified Chronic kidney disease stage: unspecified stage Qualified Code(s): N17.9 - Acute kidney failure, unspecified; N18.9 - Chronic kidney disease, unspecified Code(s): N17.9 - Acute kidney failure, unspecified; N18.9 - Chronic kidney disease, unspecified Status: Acute (3) Coffee ground emesis: Code(s): K92.0 - Hematemesis Status: Acute (4) Gastroenteritis: Code(s): K52.9 - Noninfective gastroenteritis and colitis, unspecified Status: Acute (5) Anemia in chronic kidney disease (CKD): Qualifiers: Chronic kidney disease stage: stage 4 (GFR 15-29) Qualified Code(s): N18.4 - Chronic kidney disease, stage 4 (severe); D63.1 - Anemia in chronic kidney disease Code(s): N18.9 - Chronic kidney disease, unspecified; D63.1 - Anemia in chronic kidney disease Status: Acute (6) 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 - Unspecified visual loss Status: Acute (7) 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, with long-term current use of insulin: Code(s): E11.319 - Type 2 diabetes mellitus with unspecified diabetic retinopathy without macular edema; Z79.4 - terminal system operator (current) use of insulin Status: Acute (8) Erosive esophagitis: Code(s): K22.10 - Ulcer of esophagus without bleeding Status: Acute Plan This is a 60 year old female patient with history of diabetes with retinopathy causing blindness, stage 4 chronic kidney disease with hypertension, CHF, esophagitis, hyperlipidemia, hematemesis, suicidal ideation, chronic anemia who was admitted to the hospital due to coffee-ground emesis and the discovery of acute on chronic kidney failure. Patient reports she is not been feeling well for several days and been dealing with nausea and vomiting. Patient is blind but EMS noted brown emesis at her residence. She has a history esophagitis and gastritis for which she is on Pepcid and pantoprazole. Patient was seen at [facility] [place] in the emergency department but her labs indicated metabolic acidosis with an anion gap elevation as well as worsening of renal failure so decision was made to transfer her to this facility. Patient received 2 L of IV in the emergency department. On arrival urine sample was collected which revealed 3+ leukocyte esterase greater than 100 wbc's. This was sent for culture. CT scan of the abdomen pelvis revealed fluid-filled small bowel loops without a transition point most likely to represent enteritis. Bowel sounds are hypoactive so ileus is also potential diagnosis. Due to coffee-ground emesis, we will hold aspirin and hold VT prophylaxis. She received 80 mg IV pantoprazole prior to transfer and we will continue 40 mg twice daily IV pantoprazole. Nausea vomiting for couple of days leading to decreased oral intake inability to keep oral medications including sodium bicarbonate and total loss of fluids from vomiting are likely reasons for acute on chronic renal failure as well as metabolic acidosis with anion gap. The gap has closed after IV fluids and IV sodium bicarb while the Cr is downtrending somewhat. Coffee-ground emesis status post EGD which showed findings of reflux esophagitis continue on PPI per GI recommendations Nausea vomiting this could be related to underlying UTI. Currently resolved with treatment. Acute on chronic anemia with coffee-ground emesis H&H dropped to 8.2 could be hemodilutional as well. Will continue to monitor no further emesis noted. H&H down to 6.9 today. Recommended 1 unit of PRBC transfusion which she refuses. She received Epogen shot. H&H improved will continue to monitor ARACELIS on CKD stage is 4 creatinine on admission 4.3 baseline creatinine around 3. Continue to monitor nephrology has been consulted. Creatinine improving. IV fluids stopped. Encourage oral intake Metabolic acidosis improving on oral bicarb Hyperkalemia mild resolved. UTI with urine WBC 50 1-100 2+ leukocyte esterase. History of VRE in the past. Treated with linezolid. Will place on ceftriaxone and linezolid. Follow urine culture which is growing Gram-negative bacilli. Awaiting identification Enteritis Esophagitis ppi EGD 12/22/2024 with reflux esophagitis Small hiatal hernia Type 2 diabetes continue SSI Anxiety depression Resting tremor 05/01/2025 Clinically patient is stable. Hemoglobin is low. No acute bleeding noted. Will continue monitor. Electrolytes are getting better. DVT prophylaxis SCDs Code status full code Subjective Date/time seen: 05/01/25 10:22 Interval history: Patient was seen during morning rounds today. Patient is feeling better. No shortness of breath or chest pain. No abdominal pain, nausea, no vomiting. Mood stable. Review of Systems Review of Systems: All systems reviewed & are unremarkable except as noted in HPI and below Exam Narrative: GENERAL: Chronically ill-appearing not in acute distress HEAD: Normocephalic, atraumatic. ENT:? Mucous membranes moist. Blind, abnormal ocular appearance CHEST: Clear to auscultation.? No respiratory distress. HEART: Regular rate and rhythm. ? Normal peripheral pulses. ABDOMEN: Soft, nontender, nondistended. Hypoactive bowel sounds. EXTREMITIES: Normal range of motion. No peripheral edema. Right BKA SKIN: Warm dry normal color NEURO: Alert and oriented x3 no focal deficits. Objective Data Vital Signs Vital Signs: Vital Signs - 24 hr 04/30/25 16:00 04/30/25 20:00 04/30/25 21:18 Temperature 36.1 C L 37.1 C Pulse Rate 86 88 Respiratory Rate 18 18 Blood Pressure 147/65 H 153/79 H Pulse Oximetry 100 100 Oxygen Delivery Room Air 05/01/25 05:10 Temperature 36.4 C Pulse Rate 85 Respiratory Rate 18 Blood Pressure 152/78 H Pulse Oximetry 99 Oxygen Delivery Intake/Output Intake/Output: Intake & Output 04/28/25 04/29/25 04/30/25 05/01/25 23:59 23:59 23:59 23:59 Intake Total 2120 2480 1890 300 Output Total 850 1550 200 600 Balance 2114 978 4158 -300 Meds/Results Medications: Active Medications Generic Name Dose Route Start Last Admin Trade Name Freq PRN Reason Stop Dose Admin Albuterol/Ipratropium 3 ml 04/28/25 01:32 Ipratropium 0.5 Mg/Albuterol Sulfate 2.5 Mg Ampul.Neb 3 Ml INHALATION Q6HRT PRN Shortness Of Breath Or Wheezing Amlodipine Besylate 10 mg 04/28/25 09:00 05/01/25 08:11 Amlodipine Besylate 10 Mg Tablet PO 10 mg DAILY SHELIA Administration Cyanocobalamin 1,000 mcg 04/29/25 09:00 05/01/25 08:11 Cyanocobalamin 1,000 Mcg Tablet PO 1,000 mcg QAM SHELIA Administration Dextrose 12.5 gm 04/28/25 00:29 Dextrose 50% 25 Gm/50 Ml Syringe IV PUSH PRN PRN Hypoglycemia Protocol Epoetin Jaleel-epbx 10,000 units 04/30/25 09:00 04/30/25 09:47 Epoetin Jaleel-Epbx 10,000 Units/Ml Vial SUB-Q 10,000 units TUTHSA@09 SHELIA Administration Folic Acid 1 mg 04/28/25 09:00 05/01/25 08:11 Folic Acid 1 Mg Tablet PO 1 mg DAILY SHELIA Administration Gabapentin 100 mg 04/28/25 09:00 05/01/25 08:11 Gabapentin 100 Mg Capsule PO 100 mg Q12HR SHELIA Administration Glucagon 1 mg 04/28/25 00:29 Glucagon For Inj 1 Mg Vial IM PRN PRN Hypoglycemia Protocol Glucose 15 gm 04/28/25 00:29 Glucose Oral Gel 15 Gm Of Glucse In 37.5 Gm Tube PO PRN PRN Hypoglycemia Protocol Hydralazine HCl 10 mg 04/28/25 06:00 05/01/25 05:04 Hydralazine 10 Mg Tablet PO 10 mg Q8HR SHELIA Administration Dextrose 1,000 mls @ 100 mls/hr 04/28/25 00:29 Dextrose 5% 1,000 Ml IVPB PRN PRN Hypoglycemia Protocol Ceftriaxone Sodium 1 gm/ 50 mls @ 100 mls/hr 04/28/25 09:00 05/01/25 08:12 Sodium Chloride IVPB 100 mls/hr Q24H SHELIA Administration Insulin Aspart 3 - 6 units 04/28/25 08:00 05/01/25 09:38 Insulin Aspart (*Bkc) 100 Units/Ml SUB-Q Not Given TIDWM [facility] Protocol Isosorbide Dinitrate 20 mg 04/28/25 09:00 05/01/25 08:12 Isosorbide Dinitrate 10 Mg Tablet PO 20 mg Q12HR SHELIA Administration Ondansetron HCl 4 mg 04/28/25 00:20 05/01/25 08:32 Ondansetron Inj 4 Mg/2 Ml Vial IV PUSH 4 mg Q4H PRN Administration Nausea And Vomiting Pantoprazole Sodium 40 mg 04/28/25 21:00 05/01/25 08:11 Pantoprazole 40 Mg Tablet PO 40 mg Q12HR SHELIA Administration Polyethylene Glycol 17 gm 04/28/25 12:00 04/30/25 12:00 Polyethylene Glycol 3350 17 Gm Powd.Pack PO Not Given NOON SHELIA Sodium Bicarbonate 1,300 mg 04/28/25 09:00 05/01/25 08:11 Sodium Bicarbonate Tab 650 Mg Tablet PO 1,300 mg BID SHELIA Administration Vitamin D 25 mcg 04/28/25 09:00 05/01/25 08:11 Cholecalciferol (Vitamin D3) 25 Mcg (1,000 Units) Tablet PO 25 mcg DAILY SHELIA Administration Radiology Results: ITS Impressions Renal Ultrasound 04/28/25 16:52 IMPRESSION: 1. No hydronephrosis. 2. Right kidney is mildly hyperechoic suggestive of medical renal disease. 3. Limited study as above. If symptoms persist or worsen, consider a short-term follow-up study or additional imaging for further assessment. Labs Labs: Laboratory Results - last 24 hr 04/30/25 04/30/25 04/30/25 11:24 17:10 21:22 WBC RBC Hgb Hct MCV MCH MCHC RDW Plt Count MPV Immature Gran % (Auto) Neut % (Auto) Lymph % (Auto) Patrick % (Auto) Eos % (Auto) Baso % (Auto) Lymph # (Auto) Patrick # (Auto) Eos # (Auto) Baso # (Auto) Abs Immat Gran (auto) Absolute Neuts (auto) Absolute Nucleated RBC Band Neutrophils % Nucleated RBC % Platelet Estimate Hypochromasia Anisocytosis Schistocytes Sodium Potassium Chloride Carbon Dioxide Anion Gap BUN Creatinine Estim Creat Clear Calc Estimated GFR Glucose POC Capillary Glucose 264 H 95 225 H Calcium Phosphorus Magnesium Total Bilirubin AST ALT Alkaline Phosphatase Total Protein Albumin 05/01/25 05/01/25 05:30 08:20 WBC 7.6 RBC 2.56 L Hgb 7.4 L Hct 26.1 L MCV 102.0 H D MCH 28.9 MCHC 28.4 L RDW 13.8 Plt Count 218 MPV 10.1 Immature Gran % (Auto) 0.5 Neut % (Auto) 50.7 Lymph % (Auto) 35.5 Patrick % (Auto) 9.4 H Eos % (Auto) 3.4 Baso % (Auto) 0.5 Lymph # (Auto) 2.71 Patrick # (Auto) 0.7 H Eos # (Auto) 0.3 Baso # (Auto) 0.0 Abs Immat Gran (auto) 0.04 H Absolute Neuts (auto) 3.9 Absolute Nucleated RBC 0.000 Band Neutrophils % Not Reportable Nucleated RBC % 0.0 Platelet Estimate Adequate Hypochromasia Occasional Anisocytosis Occasional Schistocytes None seen Sodium 134 L Potassium 4.9 Chloride 110 H Carbon Dioxide 17 L Anion Gap 7 BUN 38 H Creatinine 3.52 H Estim Creat Clear Calc Not Reportable Estimated GFR 13 L Glucose 139 H POC Capillary Glucose 116 H Calcium 7.9 L Phosphorus 4.5 Magnesium 2.0 Total Bilirubin 0.3 AST 15 ALT 6 Alkaline Phosphatase 76 Total Protein 5.8 L Albumin 2.9 L Quality VTE Prophylaxis VTE prophylaxis: mechanical ordered
--- NOTE | 2025-05-01 10:47 | PCNFU ---
Nutrition Follow-Up Complete: Inadequate energy intake related to NPO status as evidenced by current diet orders goal: Monitor for diet orders, wt, labs. Patient is meeting goal. No new goal. Pt current nutrition is Low Fiber with diet supplements. Last recorded weight is 49.4 kg, up from 48 kg on admit. Bowel Motility: No BM reported-Miralax scheduled today, patient has been refusing. Labs Reviewed: Glu 139, Na 134, Hct 26.1, Hgb 7.4, BUN 38, Glu 139, Cr 3.52 Meds Noted: Miralax,Folic Acid, Vit D Skin: WNL Additional Notes: Patient is tolerating Low Fiber. Oral Intake > 75% of meals. Diet supplements are providing an additional 350 kcal and 20 gm protein. Agree with diet orders. Follow up in 7 days.
[2025-05-01 16:00] VITALS: BP 138/63; PULSE 90; RESP 16; TEMP 36.3; O2SAT 100
[2025-05-01] MEDS: INSULIN ASPART (*BKC) 100 UNITS/ML SUB-Q (17:08)
[2025-05-02] VITALS: BP 160/74; PULSE 87; RESP 18; TEMP 36.6; O2SAT 99
[2025-05-02 05:57] VITALS: BP 152/75; PULSE 78; RESP 18; TEMP 36.5; O2SAT 100
[2025-05-02 06:17] LABS: Hematocrit 25.8 % (37.0-47.0); Hemoglobin 7.8 g/dL (12.0-15.0); Immature Granulocyte Percent A 0.5 % (0-0.5); Lymphocytes Absolute Auto 2.55 K/mm3 (0.9-3.2); Mean Corpuscular HGB Conc 30.2 g/dl (32-36); Mean Corpuscular Hemoglobin 28.3 pg (26-34); Mean Corpuscular Volume 93.5 fl (80-100); Nucleated Red Blood Cells Absolute Auto 0.000 K/mm3 (0.0-0.012); Nucleated Red Blood Cells Perc 0.0 % (0.0-0.2); Platelet Count Result 288 k/mm3 (150-375); Red Blood Count 2.76 M/mm3 (4.2-5.4); White Blood Count 7.7 K/mm3 (4.5-10.0)
[2025-05-02 06:37] LABS: Alanine Aminotransferase 8 U/L (6-35); Albumin Level 3.3 g/dL (3.5-5.1); Alkaline Phosphatase 85 U/L (38-126); Anion Gap 7 mmol/L (4-12); Aspartate Amino Transferase 15 U/L (14-36); Bilirubin,Total 0.3 mg/dL (0.2-1.3); Blood Urea Nitrogen 40 mg/dL (7-17); Calcium 7.9 mg/dL (8.4-10.2); Carbon Dioxide 20 mmol/L (22-30); Chloride 108 mmol/L (98-107); Estimated Glomerular Filt Rate 11; Glucose 116 mg/dL (65-110); Magnesium 2.0 mg/dL (1.6-2.3); Potassium 5.2 mmol/L (3.4-5.0); Sodium 135 mmol/L (137-145); Total Protein 6.3 g/dL (6.3-8.2)
[2025-05-02 08:00] VITALS: TEMP 37.3
[2025-05-02] MEDS: ONDANSETRON INJ 4 MG/2 ML VIAL IV PUSH (08:12)
[2025-05-02] MEDS: PROCHLORPERAZINE EDISYLATE 10 MG/2 ML VIAL IV PUSH (09:15)
[2025-05-02] MEDS: cefTRIAXone 1 GM in SODIUM CHLORIDE 0.9% IV 50 ML 100 ML IVPB (10:00)
[2025-05-02] MEDS: EPOETIN ALFA-EPBX 10,000 UNITS/ML VIAL 10000 UNITS SUB-Q (10:00)
--- NOTE | 2025-05-02 10:42 | P.PNNP_ITS ---
Progress Note: A&P Assessment and Plan (1) Stage 5 chronic kidney disease: Code(s): N18.5 - Chronic kidney disease, stage 5 Status: Chronic Assessment and Plan: * long standing issue/problem * baseline creatinine has been running ~ 3.6 - 4.4mg/dl in the last year * however, fluctuates to extremes as noted with acute hospitalizations * creatinine has been as low as 2.5mg/dL (hence, she fluctuates between CKD stage 4 and stage 5) * discharged from [facility] in mid February 2025 at 3.71mg/dl * presumably secondary to diabetes, vascular disease, hypertension, and age- related change along with previous ARACELIS requiring [employer]/dialysis (Apr 2022 - Sep 2022) * follows with nephrology at the [facility] for management of her CKD * creatinine today is up to 4.27. She was getting IV fluids before and is now throwing up. Perhaps she is a little dry. Will restart IV fluid (2) Coffee ground emesis: Code(s): K92.0 - Hematemesis Status: Acute Assessment and Plan: * noted brown emesis at home per EMS report * CT findings of esophagitis and enteritis * concern for erosive esophagitis... * GI following with recommendations noted * s/p EGD (on 04/28): * noted reflux esophagitis * no active bleeding lesions * on PPI * patient refused PRBC transfusion. * She is getting Epogen hemoglobin is up a little bit from its patricia of 6.8. (3) Metabolic acidosis: Code(s): E87.20 - Acidosis, unspecified Status: Acute Assessment and Plan: * resolving * presumably secondary to fluctuating renal function and vomiting * improvement noted with IVFs and sodium bicarbonate * CO2 is up to 20 now. She was getting IV bicarb but now off of that. Now on oral bicarb. Will watch CO2 as we give her fluid in case dilution makes this worse. (4) UTI (urinary tract infection): Qualifiers: Hematuria presence: without hematuria Urinary tract infection type: acute cystitis Qualified Code(s): N30.00 - Acute cystitis without hematuria Code(s): N39.0 - Urinary tract infection, site not specified Status: Acute Assessment and Plan: * admission UA suggestive * follow culture results - E.coli noted * on Ceftriaxone. E coli is pansensitive. (5) Gastroenteritis: Code(s): K52.9 - Noninfective gastroenteritis and colitis, unspecified Status: Acute Assessment and Plan: * as noted on admission imaging * continue PPI and anti-emetics * She had more vomiting this morning. * GI following intermittently. (6) Anemia: Code(s): D64.9 - Anemia, unspecified Status: Chronic Assessment and Plan: * acute on chronic * chronic component due to CKD * now complicated by GI bleed * adequate iron stores by anemia studies * Epogen while hospitalized * Check CBC tomorrow (7) Hypertension: Code(s): I10 - Essential (primary) hypertension Status: Chronic Assessment and Plan: * systolic 130s to 160s * on amlodipine, hydralazine. Not on an ARB or ERUM-inhibitor, but with changing creatinine scan, will hold off on this. probably a bit dry so will hold off on diuretics as well. 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 She has thrown up 4 times this morning. She did get some Zofran from the nurse. No shortness of breath Exam Narrative: General: WD/WN female in NAD Heart: normal S1 and S2; no rub or gallop Lungs: clear to auscultation Abdomen: soft, nontender, nondistended, positive bowel sounds Extremities: no cyanosis or clubbing; no edema Skin: no rash Objective Data Vital Signs Vital Signs: Vital Signs - 24 hr 05/01/25 16:00 05/01/25 20:00 05/02/25 00:00 Temperature 97.4 F L 97.9 F Pulse Rate 90 87 Respiratory Rate 16 18 Blood Pressure 138/63 160/74 H Pulse Oximetry 100 99 Oxygen Delivery Room Air 05/02/25 05:57 05/02/25 08:00 Temperature 97.7 F 99.1 F Pulse Rate 78 Respiratory Rate 18 Blood Pressure 152/75 H Pulse Oximetry 100 Oxygen Delivery Intake/Output Intake/Output: Intake & Output 04/29/25 04/30/25 05/01/25 05/02/25 23:59 23:59 23:59 23:59 Intake Total 2480 1890 1070 Output Total 7455 649 9616 1700 Balance 930 1690 70 -1700 Meds/Results Medications: Active Medications Generic Name Dose Route Start Last Admin Trade Name Freq PRN Reason Stop Dose Admin Albuterol/Ipratropium 3 ml 04/28/25 01:32 Ipratropium 0.5 Mg/Albuterol Sulfate 2.5 Mg Ampul.Neb 3 Ml INHALATION Q6HRT PRN Shortness Of Breath Or Wheezing Amlodipine Besylate 10 mg 04/28/25 09:00 05/02/25 09:57 Amlodipine Besylate 10 Mg Tablet PO Not Given DAILY [facility] Cyanocobalamin 1,000 mcg 04/29/25 09:00 05/02/25 09:57 Cyanocobalamin 1,000 Mcg Tablet PO Not Given QAM [facility] Dextrose 12.5 gm 04/28/25 00:29 Dextrose 50% 25 Gm/50 Ml Syringe IV PUSH PRN PRN Hypoglycemia Protocol Epoetin Jaleel-epbx 10,000 units 04/30/25 09:00 05/02/25 10:00 Epoetin Jaleel-Epbx 10,000 Units/Ml Vial SUB-Q 10,000 units TUTHSA@09 [facility] Administration Folic Acid 1 mg 04/28/25 09:00 05/02/25 09:57 Folic Acid 1 Mg Tablet PO Not Given DAILY [facility] Gabapentin 100 mg 04/28/25 09:00 05/02/25 09:57 Gabapentin 100 Mg Capsule PO Not Given Q12HR [facility] Glucagon 1 mg 04/28/25 00:29 Glucagon For Inj 1 Mg Vial IM PRN PRN Hypoglycemia Protocol Glucose 15 gm 04/28/25 00:29 Glucose Oral Gel 15 Gm Of Glucse In 37.5 Gm Tube PO PRN PRN Hypoglycemia Protocol Hydralazine HCl 10 mg 04/28/25 06:00 05/02/25 06:07 Hydralazine 10 Mg Tablet PO 10 mg Q8HR [facility] Administration Dextrose 1,000 mls @ 100 mls/hr 04/28/25 00:29 Dextrose 5% 1,000 Ml IVPB PRN PRN Hypoglycemia Protocol Ceftriaxone Sodium 1 gm/ 50 mls @ 100 mls/hr 04/28/25 09:00 05/02/25 10:00 Sodium Chloride IVPB 100 mls/hr Q24H [facility] Administration Insulin Aspart 3 - 6 units 04/28/25 08:00 05/02/25 09:04 Insulin Aspart (*Bkc) 100 Units/Ml SUB-Q Not Given TIDWM [facility] Protocol Isosorbide Dinitrate 20 mg 04/28/25 09:00 05/02/25 09:57 Isosorbide Dinitrate 10 Mg Tablet PO Not Given Q12HR [facility] Ondansetron HCl 4 mg 04/28/25 00:20 05/02/25 08:12 Ondansetron Inj 4 Mg/2 Ml Vial IV PUSH 4 mg Q4H PRN Administration Nausea And Vomiting Pantoprazole Sodium 40 mg 04/28/25 21:00 05/02/25 09:58 Pantoprazole 40 Mg Tablet PO Not Given Q12HR [facility] Polyethylene Glycol 17 gm 04/28/25 12:00 05/01/25 13:12 Polyethylene Glycol 3350 17 Gm Powd.Pack PO 17 gm NOON [facility] Administration Sodium Bicarbonate 1,300 mg 04/28/25 09:00 05/02/25 09:58 Sodium Bicarbonate Tab 650 Mg Tablet PO Not Given BID [facility] Vitamin D 25 mcg 04/28/25 09:00 05/02/25 09:57 Cholecalciferol (Vitamin D3) 25 Mcg (1,000 Units) Tablet PO Not Given DAILY [facility] Radiology Results: ITS Impressions Renal Ultrasound 04/28/25 16:52 IMPRESSION: 1. No hydronephrosis. 2. Right kidney is mildly hyperechoic suggestive of medical renal disease. 3. Limited study as above. If symptoms persist or worsen, consider a short-term follow-up study or additional imaging for further assessment. Labs Labs: Laboratory Results - last 24 hr 05/01/25 05/01/25 05/01/25 11:58 16:55 20:23 WBC RBC Hgb Hct MCV MCH MCHC RDW Plt Count MPV Immature Gran % (Auto) Neut % (Auto) Lymph % (Auto) Riley % (Auto) Eos % (Auto) Baso % (Auto) Lymph # (Auto) Riley # (Auto) Eos # (Auto) Baso # (Auto) Abs Immat Gran (auto) Absolute Neuts (auto) Absolute Nucleated RBC Nucleated RBC % Sodium Potassium Chloride Carbon Dioxide Anion Gap BUN Creatinine Estim Creat Clear Calc Estimated GFR Glucose POC Capillary Glucose 187 H 216 H 58 L* Calcium Phosphorus Magnesium Total Bilirubin AST ALT Alkaline Phosphatase Total Protein Albumin 05/01/25 05/02/25 05/02/25 23:55 03:51 06:06 WBC 7.7 RBC 2.76 L Hgb 7.8 L Hct 25.8 L MCV 93.5 D MCH 28.3 MCHC 30.2 L RDW 14.3 Plt Count 288 MPV 10.1 Immature Gran % (Auto) 0.5 Neut % (Auto) 51.9 Lymph % (Auto) 33.3 Riley % (Auto) 9.8 H Eos % (Auto) 4.0 Baso % (Auto) 0.5 Lymph # (Auto) 2.55 Riley # (Auto) 0.8 H Eos # (Auto) 0.3 Baso # (Auto) 0.0 Abs Immat Gran (auto) 0.04 H Absolute Neuts (auto) 4.0 Absolute Nucleated RBC 0.000 Nucleated RBC % 0.0 Sodium 135 L Potassium 5.2 H Chloride 108 H Carbon Dioxide 20 L Anion Gap 7 BUN 40 H Creatinine 4.27 H Estim Creat Clear Calc Not Reportable Estimated GFR 11 L Glucose 116 H POC Capillary Glucose 100 112 H Calcium 7.9 L Phosphorus 5.4 H Magnesium 2.0 Total Bilirubin 0.3 AST 15 ALT 8 Alkaline Phosphatase 85 Total Protein 6.3 Albumin 3.3 L 05/02/25 08:28 WBC RBC Hgb Hct MCV MCH MCHC RDW Plt Count MPV Immature Gran % (Auto) Neut % (Auto) Lymph % (Auto) Riley % (Auto) Eos % (Auto) Baso % (Auto) Lymph # (Auto) Riley # (Auto) Eos # (Auto) Baso # (Auto) Abs Immat Gran (auto) Absolute Neuts (auto) Absolute Nucleated RBC Nucleated RBC % Sodium Potassium Chloride Carbon Dioxide Anion Gap BUN Creatinine Estim Creat Clear Calc Estimated GFR Glucose POC Capillary Glucose 159 H Calcium Phosphorus Magnesium Total Bilirubin AST ALT Alkaline Phosphatase Total Protein Albumin
--- NOTE | 2025-05-02 11:39 | P.PNIM_ITS ---
Progress Note: A&P Assessment and Plan (1) Coffee ground emesis: Code(s): K92.0 - Hematemesis Status: Acute Assessment and Plan: Coffee-ground emesis status post EGD which showed findings of reflux esophagitis continue on PPI per GI recommendations Acute on chronic anemia with coffee-ground emesis Monitor H&H S/P 1 U PRBC Epogen shot (2) Metabolic acidosis: Code(s): E87.20 - Acidosis, unspecified Status: Acute (3) Acute on chronic kidney failure: Qualifiers: Acute renal failure type: unspecified Chronic kidney disease stage: unspecified stage Qualified Code(s): N17.9 - Acute kidney failure, unspecified; N18.9 - Chronic kidney disease, unspecified Code(s): N17.9 - Acute kidney failure, unspecified; N18.9 - Chronic kidney disease, unspecified Status: Acute Assessment and Plan: -Avoid nephrotoxic drugs. -Monitor antihypertensive drug therapy. -Avoid NSAIDs. -Routine CMP monitoring GFR. -Monitor electrolytes especially potassium. -Antibiotic doses depending on creatinine clearance. -Pharmacy does medications. 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, with long-term current use of insulin: Code(s): E11.319 - Type 2 diabetes mellitus with unspecified diabetic retinopathy without macular edema; Z79.4 - prison (current) use of insulin Status: Chronic Assessment and Plan: continue SSI (8) Erosive esophagitis: Code(s): K22.10 - Ulcer of esophagus without bleeding Status: Acute Assessment and Plan: status post EGD which showed findings of reflux esophagitis continue on PPI per GI recommendations (9) UTI (urinary tract infection): Qualifiers: Hematuria presence: without hematuria Urinary tract infection type: acute cystitis Qualified Code(s): N30.00 - Acute cystitis without hematuria Code(s): N39.0 - Urinary tract infection, site not specified Status: Acute Assessment and Plan: UTI with urine WBC 50 1-100 2+ leukocyte esterase. History of VRE in the past. Treated with linezolid. Will place on ceftriaxone and linezolid. Follow urine culture which is growing Gram-negative bacilli. Awaiting identification Subjective Date/time seen: 05/02/25 11:39 Interval history: Patient had episodes of vomiting today. Ordered Compazine. Advised clear liquid diet. Review of Systems Review of Systems: All systems reviewed & are unremarkable except as noted in HPI and below Exam Narrative: GENERAL: Chronically ill-appearing not in acute distress HEAD: Normocephalic, atraumatic. ENT:? Mucous membranes moist. Blind, abnormal ocular appearance CHEST: Clear to auscultation.? No respiratory distress. HEART: Regular rate and rhythm. ? Normal peripheral pulses. ABDOMEN: Soft, nontender, nondistended. Hypoactive bowel sounds. EXTREMITIES: Normal range of motion. No peripheral edema. Right BKA SKIN: Warm dry normal color NEURO: Alert and oriented x3 no focal deficits. Objective Data Vital Signs Vital Signs: Vital Signs - 24 hr 05/01/25 16:00 05/01/25 20:00 05/02/25 00:00 Temperature 97.4 F L 97.9 F Pulse Rate 90 87 Respiratory Rate 16 18 Blood Pressure 138/63 160/74 H Pulse Oximetry 100 99 Oxygen Delivery Room Air 05/02/25 05:57 05/02/25 08:00 05/02/25 08:00 Temperature 97.7 F 99.1 F Pulse Rate 78 Respiratory Rate 18 Blood Pressure 152/75 H Pulse Oximetry 100 Oxygen Delivery Room Air Intake/Output Intake/Output: Intake & Output 04/29/25 04/30/25 05/01/25 05/02/25 23:59 23:59 23:59 23:59 Intake Total 2480 1890 1070 Output Total 1178 597 8907 1700 Balance 930 1690 70 -1700 Meds/Results Medications: Active Medications Generic Name Dose Route Start Last Admin Trade Name Freq PRN Reason Stop Dose Admin Albuterol/Ipratropium 3 ml 04/28/25 01:32 Ipratropium 0.5 Mg/Albuterol Sulfate 2.5 Mg Ampul.Neb 3 Ml INHALATION Q6HRT PRN Shortness Of Breath Or Wheezing Amlodipine Besylate 10 mg 04/28/25 09:00 05/02/25 09:57 Amlodipine Besylate 10 Mg Tablet PO Not Given DAILY [facility] Cyanocobalamin 1,000 mcg 04/29/25 09:00 05/02/25 09:57 Cyanocobalamin 1,000 Mcg Tablet PO Not Given QAM [facility] Dextrose 12.5 gm 04/28/25 00:29 Dextrose 50% 25 Gm/50 Ml Syringe IV PUSH PRN PRN Hypoglycemia Protocol Epoetin Jaleel-epbx 10,000 units 04/30/25 09:00 05/02/25 10:00 Epoetin Jaleel-Epbx 10,000 Units/Ml Vial SUB-Q 10,000 units TUTHSA@09 [facility] Administration Folic Acid 1 mg 04/28/25 09:00 05/02/25 09:57 Folic Acid 1 Mg Tablet PO Not Given DAILY [facility] Gabapentin 100 mg 04/28/25 09:00 05/02/25 09:57 Gabapentin 100 Mg Capsule PO Not Given Q12HR [facility] Glucagon 1 mg 04/28/25 00:29 Glucagon For Inj 1 Mg Vial IM PRN PRN Hypoglycemia Protocol Glucose 15 gm 04/28/25 00:29 Glucose Oral Gel 15 Gm Of Glucse In 37.5 Gm Tube PO PRN PRN Hypoglycemia Protocol Hydralazine HCl 10 mg 04/28/25 06:00 05/02/25 06:07 Hydralazine 10 Mg Tablet PO 10 mg Q8HR [facility] Administration Dextrose 1,000 mls @ 100 mls/hr 04/28/25 00:29 Dextrose 5% 1,000 Ml IVPB PRN PRN Hypoglycemia Protocol Ceftriaxone Sodium 1 gm/ 50 mls @ 100 mls/hr 04/28/25 09:00 05/02/25 10:00 Sodium Chloride IVPB 100 mls/hr Q24H [facility] Administration Sodium Chloride 1,000 mls @ 75 mls/hr 05/02/25 10:45 Normal Saline Iv IV CONT .[id number] [facility] Insulin Aspart 3 - 6 units 04/28/25 08:00 05/02/25 09:04 Insulin Aspart (*Bkc) 100 Units/Ml SUB-Q Not Given TIDWM [facility] Protocol Isosorbide Dinitrate 20 mg 04/28/25 09:00 05/02/25 09:57 Isosorbide Dinitrate 10 Mg Tablet PO Not Given Q12HR [facility] Metoprolol Tartrate 12.5 mg 05/02/25 21:00 Metoprolol Tartrate 12.5 Mg Tablet PO Q12HR [facility] Ondansetron HCl 4 mg 04/28/25 00:20 05/02/25 08:12 Ondansetron Inj 4 Mg/2 Ml Vial IV PUSH 4 mg Q4H PRN Administration Nausea And Vomiting Pantoprazole Sodium 40 mg 04/28/25 21:00 05/02/25 09:58 Pantoprazole 40 Mg Tablet PO Not Given Q12HR [facility] Polyethylene Glycol 17 gm 04/28/25 12:00 05/01/25 13:12 Polyethylene Glycol 3350 17 Gm Powd.Pack PO 17 gm NOON [facility] Administration Sodium Bicarbonate 1,300 mg 04/28/25 09:00 05/02/25 09:58 Sodium Bicarbonate Tab 650 Mg Tablet PO Not Given BID [facility] Vitamin D 25 mcg 04/28/25 09:00 05/02/25 09:57 Cholecalciferol (Vitamin D3) 25 Mcg (1,000 Units) Tablet PO Not Given DAILY [facility] Radiology Results: ITS Impressions Renal Ultrasound 04/28/25 16:52 IMPRESSION: 1. No hydronephrosis. 2. Right kidney is mildly hyperechoic suggestive of medical renal disease. 3. Limited study as above. If symptoms persist or worsen, consider a short-term follow-up study or additional imaging for further assessment. Labs Labs: Laboratory Results - last 24 hr 05/01/25 05/01/25 05/01/25 11:58 16:55 20:23 WBC RBC Hgb Hct MCV MCH MCHC RDW Plt Count MPV Immature Gran % (Auto) Neut % (Auto) Lymph % (Auto) [place] % (Auto) Eos % (Auto) Baso % (Auto) Lymph # (Auto) [place] # (Auto) Eos # (Auto) Baso # (Auto) Abs Immat Gran (auto) Absolute Neuts (auto) Absolute Nucleated RBC Nucleated RBC % Sodium Potassium Chloride Carbon Dioxide Anion Gap BUN Creatinine Estim Creat Clear Calc Estimated GFR Glucose POC Capillary Glucose 187 H 216 H 58 L* Calcium Phosphorus Magnesium Total Bilirubin AST ALT Alkaline Phosphatase Total Protein Albumin 05/01/25 05/02/25 05/02/25 23:55 03:51 06:06 WBC 7.7 RBC 2.76 L Hgb 7.8 L Hct 25.8 L MCV 93.5 D MCH 28.3 MCHC 30.2 L RDW 14.3 Plt Count 288 MPV 10.1 Immature Gran % (Auto) 0.5 Neut % (Auto) 51.9 Lymph % (Auto) 33.3 [place] % (Auto) 9.8 H Eos % (Auto) 4.0 Baso % (Auto) 0.5 Lymph # (Auto) 2.55 [place] # (Auto) 0.8 H Eos # (Auto) 0.3 Baso # (Auto) 0.0 Abs Immat Gran (auto) 0.04 H Absolute Neuts (auto) 4.0 Absolute Nucleated RBC 0.000 Nucleated RBC % 0.0 Sodium 135 L Potassium 5.2 H Chloride 108 H Carbon Dioxide 20 L Anion Gap 7 BUN 40 H Creatinine 4.27 H Estim Creat Clear Calc Not Reportable Estimated GFR 11 L Glucose 116 H POC Capillary Glucose 100 112 H Calcium 7.9 L Phosphorus 5.4 H Magnesium 2.0 Total Bilirubin 0.3 AST 15 ALT 8 Alkaline Phosphatase 85 Total Protein 6.3 Albumin 3.3 L 05/02/25 05/02/25 08:28 11:32 WBC RBC Hgb Hct MCV MCH MCHC RDW Plt Count MPV Immature Gran % (Auto) Neut % (Auto) Lymph % (Auto) [place] % (Auto) Eos % (Auto) Baso % (Auto) Lymph # (Auto) [place] # (Auto) Eos # (Auto) Baso # (Auto) Abs Immat Gran (auto) Absolute Neuts (auto) Absolute Nucleated RBC Nucleated RBC % Sodium Potassium Chloride Carbon Dioxide Anion Gap BUN Creatinine Estim Creat Clear Calc Estimated GFR Glucose POC Capillary Glucose 159 H 156 H Calcium Phosphorus Magnesium Total Bilirubin AST ALT Alkaline Phosphatase Total Protein Albumin Quality VTE Prophylaxis VTE prophylaxis: mechanical ordered Hospitalist MIPS Advance Care Plan I have confirmed that the patient's Advanced Care Plan is present, code status is documented, or surrogate decision maker is listed in patient medical record.: Yes Medication Reconciliation I have utilized all available resources to obtain, update and review the patients current medications (includes all prescriptions, OTC, herbals, cannabis, and nutritional supplements).: Yes
[2025-05-02] MEDS: SODIUM CHLORIDE 0.9% IV 1,000 ML 75 ML IV CONT (12:17)
[2025-05-02 15:19] VITALS: BP 120/51; PULSE 90; RESP 18; TEMP 36.6; O2SAT 100
[2025-05-02] MEDS: SODIUM BICARBONATE TAB 650 MG TABLET 1300 MG PO (17:17)
--- NOTE | 2025-05-02 21:30 | PC.NURSE ---
Addendum entered by Inna Velazco RN 05/03/25 03:08: BS 325 Original Note: Notified Megha Reeder regarding pts BS 349. New order for 4 units Novolog SQ NOW.
[2025-05-02] MEDS: METOPROLOL TARTRATE 12.5 MG TABLET PO (22:11)
[2025-05-02] MEDS: ISOSORBIDE DINITRATE 10 MG TABLET 20 MG PO (22:11)
[2025-05-02] MEDS: PANTOPRAZOLE 40 MG TABLET PO (22:11)
[2025-05-02] MEDS: GABAPENTIN 100 MG CAPSULE PO (22:11)
[2025-05-02 22:18] VITALS: BP 161/68; PULSE 88; RESP 16; TEMP 36.8; O2SAT 100
[2025-05-02] MEDS: INSULIN ASPART (*BKC) 100 UNITS/ML SUB-Q (23:15)
--- NOTE | 2025-05-02 23:15 | PC.NURSE ---
2315 Pt received 4 U Novolog SQ. 0115 pts BS 20, 25mg dextrose IVPUSH given, pt had two apple juices as well. [address] Frias notified. New orders given, change diet from liquid to diabetic and check pts BS in one hour. Pt had levon crackers and peanut butter also. 0230 BS 111.
[2025-05-03] MEDS: DEXTROSE 50% 25 GM/50 ML SYRINGE IV PUSH ×2 (01:25→01:29)
[2025-05-03 06:17] LABS: Hematocrit 23.3 % (37.0-47.0); Hemoglobin 7.1 g/dL (12.0-15.0); Immature Granulocyte Percent A 0.5 % (0-0.5); Lymphocytes Absolute Auto 1.53 K/mm3 (0.9-3.2); Mean Corpuscular HGB Conc 30.5 g/dl (32-36); Mean Corpuscular Hemoglobin 28.5 pg (26-34); Mean Corpuscular Volume 93.6 fl (80-100); Nucleated Red Blood Cells Absolute Auto 0.000 K/mm3 (0.0-0.012); Nucleated Red Blood Cells Perc 0.0 % (0.0-0.2); Platelet Count Result 270 k/mm3 (150-375); Red Blood Count 2.49 M/mm3 (4.2-5.4); White Blood Count 7.5 K/mm3 (4.5-10.0)
[2025-05-03 06:34] VITALS: BP 128/72; PULSE 70; RESP 18; TEMP 36.5; O2SAT 100
[2025-05-03 06:40] LABS: Alanine Aminotransferase 9 U/L (6-35); Albumin Level 3.1 g/dL (3.5-5.1); Alkaline Phosphatase 73 U/L (38-126); Anion Gap 7 mmol/L (4-12); Aspartate Amino Transferase 16 U/L (14-36); Bilirubin,Total 0.2 mg/dL (0.2-1.3); Blood Urea Nitrogen 47 mg/dL (7-17); Calcium 7.8 mg/dL (8.4-10.2); Carbon Dioxide 20 mmol/L (22-30); Chloride 105 mmol/L (98-107); Estimated Glomerular Filt Rate 11; Glucose 174 mg/dL (65-110); Magnesium 2.1 mg/dL (1.6-2.3); Potassium 5.6 mmol/L (3.4-5.0); Sodium 132 mmol/L (137-145); Total Protein 6.0 g/dL (6.3-8.2)
--- NOTE | 2025-05-03 09:08 | P.PNIM_ITS ---
Progress Note: A&P Assessment and Plan (1) Coffee ground emesis: Code(s): K92.0 - Hematemesis Status: Acute Assessment and Plan: Coffee-ground emesis status post EGD which showed findings of reflux esophagitis continue on PPI per GI recommendations Acute on chronic anemia with coffee-ground emesis Monitor H&H S/P 1 U PRBC Epogen shot (2) Metabolic acidosis: Code(s): E87.20 - Acidosis, unspecified Status: Acute (3) Acute on chronic kidney failure: Qualifiers: Acute renal failure type: unspecified Chronic kidney disease stage: unspecified stage Qualified Code(s): N17.9 - Acute kidney failure, unspecified; N18.9 - Chronic kidney disease, unspecified Code(s): N17.9 - Acute kidney failure, unspecified; N18.9 - Chronic kidney disease, unspecified Status: Acute Assessment and Plan: -Avoid nephrotoxic drugs. -Monitor antihypertensive drug therapy. -Avoid NSAIDs. -Routine CMP monitoring GFR. -Monitor electrolytes especially potassium. -Antibiotic doses depending on creatinine clearance. -Pharmacy does medications. 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, with long-term current use of insulin: Code(s): E11.319 - Type 2 diabetes mellitus with unspecified diabetic retinopathy without macular edema; Z79.4 - [facility] (current) use of insulin Status: Chronic Assessment and Plan: continue SSI (8) Erosive esophagitis: Code(s): K22.10 - Ulcer of esophagus without bleeding Status: Acute Assessment and Plan: status post EGD which showed findings of reflux esophagitis continue on PPI per GI recommendations (9) UTI (urinary tract infection): Qualifiers: Hematuria presence: without hematuria Urinary tract infection type: acute cystitis Qualified Code(s): N30.00 - Acute cystitis without hematuria Code(s): N39.0 - Urinary tract infection, site not specified Status: Acute Assessment and Plan: UTI with urine WBC 50 1-100 2+ leukocyte esterase. History of VRE in the past. Treated with linezolid. Reviewed urine culture and patient will be started on Augmentin (10) Fall: Code(s): W19.XXXA - Unspecified fall, initial encounter Status: Acute Assessment and Plan: -medications were reviewed -evaluate for incidence of hypoglycemia -avoid any sedatives or anxiolytic -bedrest -we evaluate for postural hypertension -labs were reviewed -head CT scan, bilateral hip x-ray, right knee, left knee, bilateral tibia and fibula x-ray pending. -physical therapy for balance, gait and strength training if no evidence of fracture Subjective Date/time seen: 05/03/25 09:08 Interval history: Interval history: 60 year old female patient with history of diabetes with retinopathy causing blindness, stage 4 chronic kidney disease with hypertension, CHF, esophagitis, hyperlipidemia, hematemesis, suicidal ideation, chronic anemia who was admitted to the hospital due to coffee-ground emesis and the discovery of acute on chronic kidney failure. EGD was performed on 04/28 which shows reflect esophagitis and hiatal hernia. Of note patient also treated for UTI 05/03: Yesterday patient had multiple episodes of vomiting and given Compazine. Currently no evidence of vomiting. Patient currently on clear liquid diet will advance as tolerated. The patient blood sugar fluctuates. Yesterday night patient received 4 units of NovoLog after the blood glucose 343 and dropped to less than 20. Currently her blood sugar 249 at 9:00 a.m. will continue glucose checks Q 1 hr. Reviewed urine culture will start Augmentin. Around 4:00 p.m. nurse called regarding possible fall. Ordered pelvic x-ray ,bilateral knee x-ray, x-ray tibia and fibula and CT head. Ordered fall precaution. Neuro checks q.4 hours Review of Systems Review of Systems: All systems reviewed & are unremarkable except as noted in HPI and below Exam Narrative: GENERAL: Chronically ill-appearing not in acute distress HEAD: Normocephalic, atraumatic. ENT:? Mucous membranes moist. Blind, abnormal ocular appearance CHEST: Clear to auscultation.? No respiratory distress. HEART: Regular rate and rhythm. ? Normal peripheral pulses. ABDOMEN: Soft, nontender, nondistended. Hypoactive bowel sounds. EXTREMITIES: Normal range of motion. No peripheral edema. Right BKA SKIN: Warm dry normal color NEURO: Alert and oriented x3 no focal deficits. Objective Data Vital Signs Vital Signs: Vital Signs - 24 hr 05/02/25 15:19 05/02/25 20:00 05/02/25 22:18 Temperature 97.9 F 98.2 F Pulse Rate 90 88 Respiratory Rate 18 16 Blood Pressure 120/51 L 161/68 H Pulse Oximetry 100 100 Oxygen Delivery Room Air 05/03/25 06:34 Temperature 97.7 F Pulse Rate 70 Respiratory Rate 18 Blood Pressure 128/72 Pulse Oximetry 100 Oxygen Delivery Intake/Output Intake/Output: Intake & Output 04/30/25 05/01/25 05/02/25 05/03/25 23:59 23:59 23:59 23:59 Intake Total 1890 1070 240 Output Total 200 1000 1900 Balance 1690 70 -1660 Meds/Results Medications: Active Medications Generic Name Dose Route Start Last Admin Trade Name Freq PRN Reason Stop Dose Admin Albuterol/Ipratropium 3 ml 04/28/25 01:32 Ipratropium 0.5 Mg/Albuterol Sulfate 2.5 Mg Ampul.Neb 3 Ml INHALATION Q6HRT PRN Shortness Of Breath Or Wheezing Amlodipine Besylate 10 mg 04/28/25 09:00 05/02/25 09:57 Amlodipine Besylate 10 Mg Tablet PO Not Given DAILY [facility] Cyanocobalamin 1,000 mcg 04/29/25 09:00 05/02/25 09:57 Cyanocobalamin 1,000 Mcg Tablet PO Not Given QAM [facility] Dextrose 12.5 gm 04/28/25 00:29 05/03/25 01:29 Dextrose 50% 25 Gm/50 Ml Syringe IV PUSH 12.5 gm PRN PRN Administration Hypoglycemia Protocol Epoetin Jaleel-epbx 10,000 units 04/30/25 09:00 05/02/25 10:00 Epoetin Jaleel-Epbx 10,000 Units/Ml Vial SUB-Q 10,000 units TUTHSA@09 [facility] Administration Folic Acid 1 mg 04/28/25 09:00 05/02/25 09:57 Folic Acid 1 Mg Tablet PO Not Given DAILY [facility] Gabapentin 100 mg 04/28/25 09:00 05/02/25 22:11 Gabapentin 100 Mg Capsule PO 100 mg Q12HR [facility] Administration Glucagon 1 mg 04/28/25 00:29 Glucagon For Inj 1 Mg Vial IM PRN PRN Hypoglycemia Protocol Glucose 15 gm 04/28/25 00:29 Glucose Oral Gel 15 Gm Of Glucse In 37.5 Gm Tube PO PRN PRN Hypoglycemia Protocol Hydralazine HCl 10 mg 04/28/25 06:00 05/03/25 06:11 Hydralazine 10 Mg Tablet PO 10 mg Q8HR [facility] Administration Dextrose 1,000 mls @ 100 mls/hr 04/28/25 00:29 Dextrose 5% 1,000 Ml IVPB PRN PRN Hypoglycemia Protocol Ceftriaxone Sodium 1 gm/ 50 mls @ 100 mls/hr 04/28/25 09:00 05/02/25 10:00 Sodium Chloride IVPB 100 mls/hr Q24H [facility] Administration Sodium Chloride 1,000 mls @ 75 mls/hr 05/02/25 10:45 05/02/25 23:01 Normal Saline Iv IV CONT Not Given .[id number] [facility] Insulin Aspart 2 - 5 units 05/02/25 17:00 05/02/25 17:31 Insulin Aspart (*Bkc) 100 Units/Ml SUB-Q Not Given TIDWM [facility] Protocol Isosorbide Dinitrate 20 mg 04/28/25 09:00 05/02/25 22:11 Isosorbide Dinitrate 10 Mg Tablet PO 20 mg Q12HR [facility] Administration Metoprolol Tartrate 12.5 mg 05/02/25 21:00 05/02/25 22:11 Metoprolol Tartrate 12.5 Mg Tablet PO 12.5 mg Q12HR [facility] Administration Ondansetron HCl 4 mg 04/28/25 00:20 05/02/25 08:12 Ondansetron Inj 4 Mg/2 Ml Vial IV PUSH 4 mg Q4H PRN Administration Nausea And Vomiting Pantoprazole Sodium 40 mg 04/28/25 21:00 05/02/25 22:11 Pantoprazole 40 Mg Tablet PO 40 mg Q12HR [facility] Administration Polyethylene Glycol 17 gm 04/28/25 12:00 05/02/25 12:16 Polyethylene Glycol 3350 17 Gm Powd.Pack PO Not Given NOON [facility] Sodium Bicarbonate 1,300 mg 04/28/25 09:00 05/02/25 17:17 Sodium Bicarbonate Tab 650 Mg Tablet PO 1,300 mg BID [facility] Administration Vitamin D 25 mcg 04/28/25 09:00 05/02/25 09:57 Cholecalciferol (Vitamin D3) 25 Mcg (1,000 Units) Tablet PO Not Given DAILY [facility] Radiology Results: ITS Impressions Renal Ultrasound 04/28/25 16:52 IMPRESSION: 1. No hydronephrosis. 2. Right kidney is mildly hyperechoic suggestive of medical renal disease. 3. Limited study as above. If symptoms persist or worsen, consider a short-term follow-up study or additional imaging for further assessment. Labs Labs: Laboratory Results - last 24 hr 05/02/25 05/02/25 05/02/25 11:32 17:09 20:11 WBC RBC Hgb Hct MCV MCH MCHC RDW Plt Count MPV Immature Gran % (Auto) Neut % (Auto) Lymph % (Auto) [place] % (Auto) Eos % (Auto) Baso % (Auto) Lymph # (Auto) [place] # (Auto) Eos # (Auto) Baso # (Auto) Abs Immat Gran (auto) Absolute Neuts (auto) Absolute Nucleated RBC Nucleated RBC % Sodium Potassium Chloride Carbon Dioxide Anion Gap BUN Creatinine Estim Creat Clear Calc Estimated GFR Glucose POC Capillary Glucose 156 H 94 325 H Calcium Phosphorus Magnesium Total Bilirubin AST ALT Alkaline Phosphatase Total Protein Albumin 05/03/25 05/03/25 05/03/25 01:19 01:20 01:32 WBC RBC Hgb Hct MCV MCH MCHC RDW Plt Count MPV Immature Gran % (Auto) Neut % (Auto) Lymph % (Auto) [place] % (Auto) Eos % (Auto) Baso % (Auto) Lymph # (Auto) [place] # (Auto) Eos # (Auto) Baso # (Auto) Abs Immat Gran (auto) Absolute Neuts (auto) Absolute Nucleated RBC Nucleated RBC % Sodium Potassium Chloride Carbon Dioxide Anion Gap BUN Creatinine Estim Creat Clear Calc Estimated GFR Glucose POC Capillary Glucose < 20 L* 20 L* 157 H Calcium Phosphorus Magnesium Total Bilirubin AST ALT Alkaline Phosphatase Total Protein Albumin 05/03/25 05/03/25 05/03/25 02:38 04:58 06:03 WBC 7.5 RBC 2.49 L Hgb 7.1 L Hct 23.3 L MCV 93.6 MCH 28.5 MCHC 30.5 L RDW 14.3 Plt Count 270 MPV 9.9 Immature Gran % (Auto) 0.5 Neut % (Auto) 68.1 Lymph % (Auto) 20.3 [place] % (Auto) 9.7 H Eos % (Auto) 0.9 Baso % (Auto) 0.5 Lymph # (Auto) 1.53 [place] # (Auto) 0.7 H Eos # (Auto) 0.1 Baso # (Auto) 0.0 Abs Immat Gran (auto) 0.04 H Absolute Neuts (auto) 5.1 Absolute Nucleated RBC 0.000 Nucleated RBC % 0.0 Sodium 132 L Potassium 5.6 H Chloride 105 Carbon Dioxide 20 L Anion Gap 7 BUN 47 H Creatinine 4.10 H Estim Creat Clear Calc Not Reportable Estimated GFR 11 L Glucose 174 H POC Capillary Glucose 111 H 143 H Calcium 7.8 L Phosphorus 5.3 H Magnesium 2.1 Total Bilirubin 0.2 AST 16 ALT 9 Alkaline Phosphatase 73 Total Protein 6.0 L Albumin 3.1 L Hospitalist MIPS Advance Care Plan I have confirmed that the patient's Advanced Care Plan is present, code status is documented, or surrogate decision maker is listed in patient medical record.: Yes Medication Reconciliation I have utilized all available resources to obtain, update and review the patients current medications (includes all prescriptions, OTC, herbals, cannabis, and nutritional supplements).: Yes
[2025-05-03] MEDS: SODIUM ZIRCONIUM CYCLOSILICATE 10 GM POWD.PACK PO ×2 (09:44→17:37)
[2025-05-03] MEDS: SODIUM BICARBONATE TAB 650 MG TABLET 1300 MG PO ×2 (09:44→17:37)
[2025-05-03] MEDS: CHOLECALCIFEROL (VITAMIN D3) 25 MCG (1,000 UNITS) TABLET PO (09:44)
[2025-05-03 09:45] VITALS: PULSE 77
[2025-05-03] MEDS: PANTOPRAZOLE 40 MG TABLET PO ×2 (09:45→21:38)
[2025-05-03] MEDS: ISOSORBIDE DINITRATE 10 MG TABLET 20 MG PO ×2 (09:45→21:39)
[2025-05-03] MEDS: METOPROLOL TARTRATE 12.5 MG TABLET PO ×2 (09:45→21:39)
[2025-05-03] MEDS: FOLIC ACID 1 MG TABLET PO (09:46)
[2025-05-03] MEDS: GABAPENTIN 100 MG CAPSULE PO ×2 (09:46→21:38)
[2025-05-03] MEDS: CYANOCOBALAMIN 1,000 MCG TABLET 1000 MCG PO (09:46)
--- NOTE | 2025-05-03 09:47 | P.PNNP_ITS ---
Progress Note: A&P Assessment and Plan (1) Stage 5 chronic kidney disease: Code(s): N18.5 - Chronic kidney disease, stage 5 Status: Chronic Assessment and Plan: * long standing issue/problem * baseline creatinine has been running ~ 3.6 - 4.4mg/dl in the last year * however, fluctuates to extremes as noted with acute hospitalizations * creatinine has been as low as 2.5mg/dL (hence, she fluctuates between CKD stage 4 and stage 5) * discharged from [facility] in mid February 2025 at 3.71mg/dl * presumably secondary to diabetes, vascular disease, hypertension, and age- related change along with previous ARACELIS requiring [employer]/dialysis (Apr 2022 - Sep 2022) * follows with nephrology at the [facility] for management of her CKD * she is getting IV fluids. Her creatinine is a little bit better now. * potassium is up a little bit. Likely due to chronic kidney disease. she is on a low-potassium diet. She received a dose of Lokelma this morning. * Continue IV fluids for now. (2) Coffee ground emesis: Code(s): K92.0 - Hematemesis Status: Acute Assessment and Plan: * noted brown emesis at home per EMS report * CT findings of esophagitis and enteritis * concern for erosive esophagitis... * GI following with recommendations noted * s/p EGD (on 04/28): * noted reflux esophagitis * no active bleeding lesions * on PPI * patient refused PRBC transfusion. * She is getting Epogen * Hemoglobin bouncing around in the 7s. (3) Metabolic acidosis: Code(s): E87.20 - Acidosis, unspecified Status: Acute Assessment and Plan: * resolving * presumably secondary to fluctuating renal function and vomiting * improvement noted with IVFs and sodium bicarbonate * CO2 is stable at 20 now. Now on oral bicarb. Will watch CO2 as we give her fluid in case dilution makes this worse. (4) UTI (urinary tract infection): Qualifiers: Hematuria presence: without hematuria Urinary tract infection type: acute cystitis Qualified Code(s): N30.00 - Acute cystitis without hematuria Code(s): N39.0 - Urinary tract infection, site not specified Status: Acute Assessment and Plan: * admission UA suggestive * follow culture results - E.coli noted * on Ceftriaxone. E coli is pansensitive. (5) Gastroenteritis: Code(s): K52.9 - Noninfective gastroenteritis and colitis, unspecified Status: Acute Assessment and Plan: * as noted on admission imaging * continue PPI and anti-emetics * She had more vomiting this morning. * GI following intermittently. (6) Anemia: Code(s): D64.9 - Anemia, unspecified Status: Chronic Assessment and Plan: * acute on chronic * chronic component due to CKD * now complicated by GI bleed * adequate iron stores by anemia studies * Epogen while hospitalized * hemoglobin up and down in the 7s (7) Hypertension: Code(s): I10 - Essential (primary) hypertension Status: Chronic Assessment and Plan: * systolic 130s to 160s * on amlodipine, hydralazine. Not on an ARB or ERUM-inhibitor, but with changing creatinines, will hold off on this. probably a bit dry so will hold off on diuretics as well. 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 No more nausea. She is asking about discharge Exam Narrative: General: WD/WN female in NAD Heart: normal S1 and S2; no rub Lungs: clear bilateral Abdomen: soft, nontender, nondistended, positive bowel sounds Extremities: no cyanosis or clubbing; no edema Skin: no rash or subcu nodule Objective Data Vital Signs Vital Signs: Vital Signs - 24 hr 05/02/25 15:19 05/02/25 20:00 05/02/25 22:18 Temperature 97.9 F 98.2 F Pulse Rate 90 88 Respiratory Rate 18 16 Blood Pressure 120/51 L 161/68 H Pulse Oximetry 100 100 Oxygen Delivery Room Air 05/03/25 06:34 05/03/25 09:45 Temperature 97.7 F Pulse Rate 70 77 Respiratory Rate 18 Blood Pressure 128/72 Pulse Oximetry 100 Oxygen Delivery Intake/Output Intake/Output: Intake & Output 04/30/25 05/01/25 05/02/25 05/03/25 23:59 23:59 23:59 23:59 Intake Total 1890 1070 240 480 Output Total 200 1000 1900 Balance 1690 70 -1660 480 Meds/Results Medications: Active Medications Generic Name Dose Route Start Last Admin Trade Name Freq PRN Reason Stop Dose Admin Albuterol/Ipratropium 3 ml 04/28/25 01:32 Ipratropium 0.5 Mg/Albuterol Sulfate 2.5 Mg Ampul.Neb 3 Ml INHALATION Q6HRT PRN Shortness Of Breath Or Wheezing Amlodipine Besylate 10 mg 04/28/25 09:00 05/03/25 09:45 Amlodipine Besylate 10 Mg Tablet PO 10 mg DAILY [facility] Administration Amoxicillin/Clavulanate Potassium 1 tablet 05/03/25 09:25 05/03/25 09:43 Amoxicillin/Clavulanate K 875-125 Mg Tab PO 05/08/25 09:24 1 tablet Q12HR [facility] Administration Cyanocobalamin 1,000 mcg 04/29/25 09:00 05/03/25 09:46 Cyanocobalamin 1,000 Mcg Tablet PO 1,000 mcg QAM [facility] Administration Dextrose 12.5 gm 04/28/25 00:29 05/03/25 01:29 Dextrose 50% 25 Gm/50 Ml Syringe IV PUSH 12.5 gm PRN PRN Administration Hypoglycemia Protocol Epoetin Jaleel-epbx 10,000 units 04/30/25 09:00 05/02/25 10:00 Epoetin Jaleel-Epbx 10,000 Units/Ml Vial SUB-Q 10,000 units TUTHSA@09 [facility] Administration Folic Acid 1 mg 04/28/25 09:00 05/03/25 09:46 Folic Acid 1 Mg Tablet PO 1 mg DAILY [facility] Administration Gabapentin 100 mg 04/28/25 09:00 05/03/25 09:46 Gabapentin 100 Mg Capsule PO 100 mg Q12HR [facility] Administration Glucagon 1 mg 04/28/25 00:29 Glucagon For Inj 1 Mg Vial IM PRN PRN Hypoglycemia Protocol Glucose 15 gm 04/28/25 00:29 Glucose Oral Gel 15 Gm Of Glucse In 37.5 Gm Tube PO PRN PRN Hypoglycemia Protocol Hydralazine HCl 10 mg 04/28/25 06:00 05/03/25 06:11 Hydralazine 10 Mg Tablet PO 10 mg Q8HR [facility] Administration Dextrose 1,000 mls @ 100 mls/hr 04/28/25 00:29 Dextrose 5% 1,000 Ml IVPB PRN PRN Hypoglycemia Protocol Sodium Chloride 1,000 mls @ 75 mls/hr 05/02/25 10:45 05/02/25 23:01 Normal Saline Iv IV CONT Not Given .[id number] [facility] Insulin Aspart 2 - 5 units 05/02/25 17:00 05/03/25 09:40 Insulin Aspart (*Bkc) 100 Units/Ml SUB-Q Not Given TIDWM [facility] Protocol Isosorbide Dinitrate 20 mg 04/28/25 09:00 05/03/25 09:45 Isosorbide Dinitrate 10 Mg Tablet PO 20 mg Q12HR [facility] Administration Metoprolol Tartrate 12.5 mg 05/02/25 21:00 05/03/25 09:45 Metoprolol Tartrate 12.5 Mg Tablet PO 12.5 mg Q12HR [facility] Administration Ondansetron HCl 4 mg 04/28/25 00:20 05/02/25 08:12 Ondansetron Inj 4 Mg/2 Ml Vial IV PUSH 4 mg Q4H PRN Administration Nausea And Vomiting Pantoprazole Sodium 40 mg 04/28/25 21:00 05/03/25 09:45 Pantoprazole 40 Mg Tablet PO 40 mg Q12HR [facility] Administration Polyethylene Glycol 17 gm 04/28/25 12:00 05/02/25 12:16 Polyethylene Glycol 3350 17 Gm Powd.Pack PO Not Given NOON [facility] Sodium Bicarbonate 1,300 mg 04/28/25 09:00 05/03/25 09:44 Sodium Bicarbonate Tab 650 Mg Tablet PO 1,300 mg BID [facility] Administration Vitamin D 25 mcg 04/28/25 09:00 05/03/25 09:44 Cholecalciferol (Vitamin D3) 25 Mcg (1,000 Units) Tablet PO 25 mcg DAILY [facility] Administration Radiology Results: ITS Impressions Renal Ultrasound 04/28/25 16:52 IMPRESSION: 1. No hydronephrosis. 2. Right kidney is mildly hyperechoic suggestive of medical renal disease. 3. Limited study as above. If symptoms persist or worsen, consider a short-term follow-up study or additional imaging for further assessment. Labs Labs: Laboratory Results - last 24 hr 05/02/25 05/02/25 05/02/25 11:32 17:09 20:11 WBC RBC Hgb Hct MCV MCH MCHC RDW Plt Count MPV Immature Gran % (Auto) Neut % (Auto) Lymph % (Auto) [place] % (Auto) Eos % (Auto) Baso % (Auto) Lymph # (Auto) [place] # (Auto) Eos # (Auto) Baso # (Auto) Abs Immat Gran (auto) Absolute Neuts (auto) Absolute Nucleated RBC Nucleated RBC % Sodium Potassium Chloride Carbon Dioxide Anion Gap BUN Creatinine Estim Creat Clear Calc Estimated GFR Glucose POC Capillary Glucose 156 H 94 325 H Calcium Phosphorus Magnesium Total Bilirubin AST ALT Alkaline Phosphatase Total Protein Albumin 05/03/25 05/03/25 05/03/25 01:19 01:20 01:32 WBC RBC Hgb Hct MCV MCH MCHC RDW Plt Count MPV Immature Gran % (Auto) Neut % (Auto) Lymph % (Auto) [place] % (Auto) Eos % (Auto) Baso % (Auto) Lymph # (Auto) [place] # (Auto) Eos # (Auto) Baso # (Auto) Abs Immat Gran (auto) Absolute Neuts (auto) Absolute Nucleated RBC Nucleated RBC % Sodium Potassium Chloride Carbon Dioxide Anion Gap BUN Creatinine Estim Creat Clear Calc Estimated GFR Glucose POC Capillary Glucose < 20 L* 20 L* 157 H Calcium Phosphorus Magnesium Total Bilirubin AST ALT Alkaline Phosphatase Total Protein Albumin 05/03/25 05/03/25 05/03/25 02:38 04:58 06:03 WBC 7.5 RBC 2.49 L Hgb 7.1 L Hct 23.3 L MCV 93.6 MCH 28.5 MCHC 30.5 L RDW 14.3 Plt Count 270 MPV 9.9 Immature Gran % (Auto) 0.5 Neut % (Auto) 68.1 Lymph % (Auto) 20.3 [place] % (Auto) 9.7 H Eos % (Auto) 0.9 Baso % (Auto) 0.5 Lymph # (Auto) 1.53 [place] # (Auto) 0.7 H Eos # (Auto) 0.1 Baso # (Auto) 0.0 Abs Immat Gran (auto) 0.04 H Absolute Neuts (auto) 5.1 Absolute Nucleated RBC 0.000 Nucleated RBC % 0.0 Sodium 132 L Potassium 5.6 H Chloride 105 Carbon Dioxide 20 L Anion Gap 7 BUN 47 H Creatinine 4.10 H Estim Creat Clear Calc Not Reportable Estimated GFR 11 L Glucose 174 H POC Capillary Glucose 111 H 143 H Calcium 7.8 L Phosphorus 5.3 H Magnesium 2.1 Total Bilirubin 0.2 AST 16 ALT 9 Alkaline Phosphatase 73 Total Protein 6.0 L Albumin 3.1 L 05/03/25 08:52 WBC RBC Hgb Hct MCV MCH MCHC RDW Plt Count MPV Immature Gran % (Auto) Neut % (Auto) Lymph % (Auto) [place] % (Auto) Eos % (Auto) Baso % (Auto) Lymph # (Auto) [place] # (Auto) Eos # (Auto) Baso # (Auto) Abs Immat Gran (auto) Absolute Neuts (auto) Absolute Nucleated RBC Nucleated RBC % Sodium Potassium Chloride Carbon Dioxide Anion Gap BUN Creatinine Estim Creat Clear Calc Estimated GFR Glucose POC Capillary Glucose 248 H Calcium Phosphorus Magnesium Total Bilirubin AST ALT Alkaline Phosphatase Total Protein Albumin
[2025-05-03] MEDS: INSULIN ASPART (*BKC) 100 UNITS/ML SUB-Q (10:45)
[2025-05-03 16:05] VITALS: BP 135/81; PULSE 73; RESP 20; TEMP 35.7; O2SAT 100
[2025-05-03 21:39] VITALS: PULSE 90
[2025-05-04] VITALS: BP 143/77; PULSE 90; RESP 18; TEMP 37.2; O2SAT 100
[2025-05-04 05:48] LABS: Hematocrit 23.9 % (37.0-47.0); Hemoglobin 7.2 g/dL (12.0-15.0); Immature Granulocyte Percent A 0.4 % (0-0.5); Lymphocytes Absolute Auto 2.25 K/mm3 (0.9-3.2); Mean Corpuscular HGB Conc 30.1 g/dl (32-36); Mean Corpuscular Hemoglobin 28.8 pg (26-34); Mean Corpuscular Volume 95.6 fl (80-100); Nucleated Red Blood Cells Absolute Auto 0.000 K/mm3 (0.0-0.012); Nucleated Red Blood Cells Perc 0.0 % (0.0-0.2); Platelet Count Result 258 k/mm3 (150-375); Red Blood Count 2.50 M/mm3 (4.2-5.4); White Blood Count 8.4 K/mm3 (4.5-10.0)
[2025-05-04 06:03] LABS: Alanine Aminotransferase 11 U/L (6-35); Albumin Level 3.4 g/dL (3.5-5.1); Alkaline Phosphatase 83 U/L (38-126); Anion Gap 11 mmol/L (4-12); Aspartate Amino Transferase 20 U/L (14-36); Bilirubin,Total 0.4 mg/dL (0.2-1.3); Blood Urea Nitrogen 44 mg/dL (7-17); Calcium 7.8 mg/dL (8.4-10.2); Carbon Dioxide 20 mmol/L (22-30); Chloride 107 mmol/L (98-107); Estimated Glomerular Filt Rate 12; Glucose 114 mg/dL (65-110); Magnesium 2.0 mg/dL (1.6-2.3); Potassium 3.9 mmol/L (3.4-5.0); Sodium 138 mmol/L (137-145); Total Protein 6.5 g/dL (6.3-8.2)
[2025-05-04] MEDS: ACETAMINOPHEN 325 MG TABLET 650 MG PO (06:22)
[2025-05-04] MEDS: GABAPENTIN 100 MG CAPSULE PO ×2 (09:42→20:38)
[2025-05-04] MEDS: CHOLECALCIFEROL (VITAMIN D3) 25 MCG (1,000 UNITS) TABLET PO (09:42)
[2025-05-04] MEDS: PANTOPRAZOLE 40 MG TABLET PO ×2 (09:42→20:40)
[2025-05-04] MEDS: SODIUM BICARBONATE TAB 650 MG TABLET 1300 MG PO ×2 (09:42→17:40)
[2025-05-04] MEDS: CYANOCOBALAMIN 1,000 MCG TABLET 1000 MCG PO (09:42)
[2025-05-04] MEDS: FOLIC ACID 1 MG TABLET PO (09:42)
[2025-05-04] MEDS: ISOSORBIDE DINITRATE 10 MG TABLET 20 MG PO ×2 (09:42→20:39)
[2025-05-04 09:43] VITALS: PULSE 84
[2025-05-04] MEDS: METOPROLOL TARTRATE 12.5 MG TABLET PO ×2 (09:43→20:39)
--- NOTE | 2025-05-04 11:51 | P.PNNP_ITS ---
Progress Note: A&P Assessment and Plan (1) Stage 5 chronic kidney disease: Code(s): N18.5 - Chronic kidney disease, stage 5 Status: Chronic Assessment and Plan: * long standing issue/problem * baseline creatinine has been running ~ 3.6 - 4.4mg/dl in the last year * however, fluctuates to extremes as noted with acute hospitalizations * creatinine has been as low as 2.5mg/dL (hence, she fluctuates between CKD stage 4 and stage 5) * discharged from [facility] in mid February 2025 at 3.71mg/dl * presumably secondary to diabetes, vascular disease, hypertension, and age- related change along with previous ARACELIS requiring [employer]/dialysis (Apr 2022 - Sep 2022) * follows with nephrology at the [facility] for management of her CKD * will dc IVFs later today and use PRN * follow repeat labs and UOP. (2) Coffee ground emesis: Code(s): K92.0 - Hematemesis Status: Acute Assessment and Plan: * noted brown emesis at home per EMS report * CT findings of esophagitis and enteritis * concern for erosive esophagitis... * GI following with recommendations noted * s/p EGD (on 04/28): * noted reflux esophagitis * no active bleeding lesions * on PPI * refused PRBC transfusion * follow H/H (3) Metabolic acidosis: Code(s): E87.20 - Acidosis, unspecified Status: Acute Assessment and Plan: * resolving * presumably secondary to fluctuating renal function and vomiting * improvement noted with IVFs and sodium bicarbonate * on oral sodium bicarbonate (4) UTI (urinary tract infection): Qualifiers: Hematuria presence: without hematuria Urinary tract infection type: a cute cystitis Qualified Code(s): N30.00 - Acute cystitis without hematuria Code(s): N39.0 - Urinary tract infection, site not specified Status: Acute Assessment and Plan: * admission UA suggestive * follow culture results - E.coli noted * on antibiotics (5) Gastroenteritis: Code(s): K52.9 - Noninfective gastroenteritis and colitis, unspecified Status: Acute Assessment and Plan: * as noted on admission imaging * continue PPI and anti-emetics * follow symptoms (6) Anemia: Code(s): D64.9 - Anemia, unspecified Status: Chronic Assessment and Plan: * acute on chronic * chronic component due to CKD * now complicated by GI bleed * adequate iron stores by anemia studies * Epogen while hospitalized (7) Hypertension: Code(s): I10 - Essential (primary) hypertension Status: Chronic Assessment and Plan: * reasonable control * follow trend of hemodynamics (8) 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 L Subjective Date/time seen: 05/04/25 11:51 Interval history: Follow-up for chronic kidney disease. Chart reviewed since last seen -- renal function/creatinine seems relatively stable at this time; suspected fall on 05/03 afternoon with imaging testing noted; no apparent distress voiced at the time of my visit. Exam 2 Narrative: General: WD/WN female in NAD Heart: normal S1 and S2; no rub Lungs: clear to auscultation Abdomen: soft, nontender, nondistended, positive bowel sounds Extremities: no cyanosis or clubbing; no edema Skin: no rash Objective Data Vital Signs Vital Signs: Vital Signs Temp Pulse Resp BP Pulse Ox O2 Del Method 05/04/25 09:43 84 05/04/25 09:42 Room Air 05/04/25 00:00 99.0 F 90 18 143/77 H 100 05/03/25 21:39 90 05/03/25 20:00 Room Air Intake/Output Intake/Output: Intake & Output 05/01/25 05/02/25 05/03/25 05/04/25 23:59 23:59 23:59 23:59 Intake Total 9953 917 3742 1310 Output Total 1000 1900 1000 Balance 70 -1660 2110 310 Meds/Results Medications: Active Medications Generic Name Dose Route Start Last Admin Trade Name Freq PRN Reason Stop Dose Admin Acetaminophen 650 mg 05/04/25 04:17 05/04/25 06:22 Acetaminophen 325 Mg Tablet PO 650 mg Q4H PRN Administration Pain Albuterol/Ipratropium 3 ml 04/28/25 01:32 Ipratropium 0.5 Mg/Albuterol Sulfate 2.5 Mg Ampul.Neb 3 Ml INHALATION Q6HRT PRN Shortness Of Breath Or Wheezing Amlodipine Besylate 10 mg 04/28/25 09:00 05/04/25 09:42 Amlodipine Besylate 10 Mg Tablet PO 10 mg DAILY SHELIA Administration Amoxicillin/Clavulanate Potassium 1 tablet 05/03/25 09:25 05/04/25 09:42 Amoxicillin/Clavulanate K 875-125 Mg Tab PO 05/08/25 09:24 1 tablet Q12HR SHELIA Administration Cyanocobalamin 1,000 mcg 04/29/25 09:00 05/04/25 09:42 Cyanocobalamin 1,000 Mcg Tablet PO 1,000 mcg QAM SHELIA Administration Dextrose 12.5 gm 04/28/25 00:29 05/03/25 01:29 Dextrose 50% 25 Gm/50 Ml Syringe IV PUSH 12.5 gm PRN PRN Administration Hypoglycemia Protocol Epoetin Jaleel-epbx 10,000 units 04/30/25 09:00 05/02/25 10:00 Epoetin Jaleel-Epbx 10,000 Units/Ml Vial SUB-Q 10,000 units TUTHSA@09 SHELIA Administration Folic Acid 1 mg 04/28/25 09:00 05/04/25 09:42 Folic Acid 1 Mg Tablet PO 1 mg DAILY SHELIA Administration Gabapentin 100 mg 04/28/25 09:00 05/04/25 09:42 Gabapentin 100 Mg Capsule PO 100 mg Q12HR SHELIA Administration Glucagon 1 mg 04/28/25 00:29 Glucagon For Inj 1 Mg Vial IM PRN PRN Hypoglycemia Protocol Glucose 15 gm 04/28/25 00:29 Glucose Oral Gel 15 Gm Of Glucse In 37.5 Gm Tube PO PRN PRN Hypoglycemia Protocol Hydralazine HCl 10 mg 04/28/25 06:00 05/04/25 13:23 Hydralazine 10 Mg Tablet PO 10 mg Q8HR SHELIA Administration Dextrose 1,000 mls @ 100 mls/hr 04/28/25 00:29 Dextrose 5% 1,000 Ml IVPB PRN PRN Hypoglycemia Protocol Sodium Chloride 1,000 mls @ 75 mls/hr 05/02/25 10:45 05/04/25 17:39 Normal Saline Iv IV CONT Not Given .[id number] [facility] Insulin Aspart 2 - 5 units 05/02/25 17:00 05/04/25 17:39 Insulin Aspart (*Bkc) 100 Units/Ml SUB-Q Not Given TIDWM [facility] Protocol Isosorbide Dinitrate 20 mg 04/28/25 09:00 05/04/25 09:42 Isosorbide Dinitrate 10 Mg Tablet PO 20 mg Q12HR SHELIA Administration Metoprolol Tartrate 12.5 mg 05/02/25 21:00 05/04/25 09:43 Metoprolol Tartrate 12.5 Mg Tablet PO 12.5 mg Q12HR SHELIA Administration Ondansetron HCl 4 mg 04/28/25 00:20 05/02/25 08:12 Ondansetron Inj 4 Mg/2 Ml Vial IV PUSH 4 mg Q4H PRN Administration Nausea And Vomiting Pantoprazole Sodium 40 mg 04/28/25 21:00 05/04/25 09:42 Pantoprazole 40 Mg Tablet PO 40 mg Q12HR SHELIA Administration Polyethylene Glycol 17 gm 04/28/25 12:00 05/04/25 13:23 Polyethylene Glycol 3350 17 Gm Powd.Pack PO 17 gm NOON SHELIA Administration Sodium Bicarbonate 1,300 mg 04/28/25 09:00 05/04/25 17:40 Sodium Bicarbonate Tab 650 Mg Tablet PO 1,300 mg BID SHELIA Administration Vitamin D 25 mcg 04/28/25 09:00 05/04/25 09:42 Cholecalciferol (Vitamin D3) 25 Mcg (1,000 Units) Tablet PO 25 mcg DAILY SHELIA Administration Radiology Results: ITS Impressions Renal Ultrasound 04/28/25 16:52 IMPRESSION: 1. No hydronephrosis. 2. Right kidney is mildly hyperechoic suggestive of medical renal disease. 3. Limited study as above. If symptoms persist or worsen, consider a short-term follow-up study or additional imaging for further assessment. Hip/Pelvis X-Ray 05/03/25 17:35 Impression: No acute fracture or malalignment. Knee X-Ray 05/03/25 17:40 Impression: No acute fracture or malalignment. Tibia/Fibula X-Ray 05/03/25 17:57 Impression: No acute fracture or malalignment. Head CT 05/04/25 08:25 IMPRESSION: 1. No fracture or acute intracranial process. 2. Small old lacunar infarct at the right parietal lobe and moderate scattered white matter hypoattenuation consistent with chronic small vessel ischemic disease. Labs Labs: Laboratory Tests 05/04/25 05:38 05/04/25 05:38 Calcium 7.8 L Phosphorus 5.7 H Magnesium 2.0 Total Bilirubin 0.4 AST 20 ALT 11 Alkaline Phosphatase 83 Total Protein 6.5 Albumin 3.4 L Microbiology 04/28/25 02:36 Blood Blood Culture - Final 04/28/25 02:36 Blood Blood Culture - Final
--- NOTE | 2025-05-04 13:29 | P.PNIM_ITS ---
Progress Note: A&P Assessment and Plan (1) Hypertension: Code(s): I10 - Essential (primary) hypertension Status: Chronic (2) CHF (congestive heart failure): Code(s): I50.9 - Heart failure, unspecified Status: Chronic (3) Diabetes mellitus: Qualifiers: Diabetes mellitus complication status: with other specified complication Diabetes mellitus skilled nursing insulin use: unspecified skilled nursing insulin use status Diabetes mellitus type: type 2 Qualified Code(s): E11.69 - Type 2 diabetes mellitus with other specified complication Code(s): E11.9 - Type 2 diabetes mellitus without complications Status: Acute (4) Gastroenteritis: Code(s): K52.9 - Noninfective gastroenteritis and colitis, unspecified Status: Acute (5) Hematemesis: Code(s): K92.0 - Hematemesis Status: Acute (6) Coffee ground emesis: Code(s): K92.0 - Hematemesis Status: Acute (7) Erosive esophagitis: Code(s): K22.10 - Ulcer of esophagus without bleeding Status: Acute (8) Acute on chronic kidney failure: Qualifiers: Acute renal failure type: unspecified Chronic kidney disease stage: unspecified stage Qualified Code(s): N17.9 - Acute kidney failure, unspecified; N18.9 - Chronic kidney disease, unspecified Code(s): N17.9 - Acute kidney failure, unspecified; N18.9 - Chronic kidney disease, unspecified Status: Acute (9) Stage 4 chronic kidney disease due to hypertension: Code(s): I12.9 - Hypertensive chronic kidney disease with stage 1 through stage 4 chronic kidney disease, or unspecified chronic kidney disease; N18.4 - Chronic kidney disease, stage 4 (severe) Status: Acute Plan 60 year old female patient with history of diabetes with retinopathy causing blindness, stage 4 chronic kidney disease with hypertension, CHF, esophagitis, hyperlipidemia, hematemesis, suicidal ideation, chronic anemia who was admitted to the hospital due to coffee-ground emesis and the discovery of acute on chronic kidney failure. Patient reports she is not been feeling well for several days and been dealing with nausea and vomiting.She has a history esophagitis and gastritis for which she is on Pepcid and pantoprazole. Patient was seen at [facility] [place] but her labs indicated metabolic acidosis with an anion gap elevation as well as wor sening of renal failure so decision was made to transfer her to this facility. Nephrology and GI were consulted. Underwent EGD which showed reflux esophagitis and hiatal hernia. 1. Acute on chronic anemia: Coffee-ground emesis Status post EGD which shows reflux esophagitis Status post 1 unit of PRBC Monitor H&H Continue with PPI b.i.d. Transfuse for hemoglobin less than 7 2. ARACELIS on CKD stage 5: Nephrology following Avoid nephrotoxins Continue with IV fluids Monitor for potassium levels Recheck BMP in a.m. 3. E coli UTI: Continue with Augmentin 4. History of fall: X-ray right knee concerning for fractures of tibia and fibula proximal Await CT scan 5. Old lacunar infarct: Seen on CT Not on aspirin right now Will hold off due to anemia Obtain lipid panel with next set of labs ? Delirium Multifactorial, likely secondary to elevated BUN i, UTI 6. History of hypertension: Continue with Norvasc, hydralazine, metoprolol 7. Diabetes mellitus: Blood glucose checked t.i.d. a.c. and HS Continue with sliding scale insulin Adjust dose as needed 8. Code status: Full 9. DVT prophylaxis: SCD on left 10. Disposition: Pending improvement Time Spent With Patient Time: 39 minutes Subjective Date/time seen: 05/04/25 13:29 Interval history: ? Confused Review of Systems Review of Systems: Unable to obtain Exam Narrative: GENERAL: Chronically ill-appearing not in acute distress HEAD: Normocephalic, atraumatic. ENT:? Mucous membranes moist. Blind, abnormal ocular appearance CHEST: Clear to auscultation.? No respiratory distress. HEART: Regular rate and rhythm. ? Normal peripheral pulses. ABDOMEN: Soft, nontender, nondistended. Hypoactive bowel sounds. EXTREMITIES: Normal range of motion. No peripheral edema. Right BKA SKIN: Warm dry normal color NEURO: Confused Objective Data Vital Signs Vital Signs: Vital Signs - 24 hr 05/03/25 16:05 05/03/25 20:00 05/03/25 21:39 Temperature 96.3 F L Pulse Rate 73 90 Respiratory Rate 20 Blood Pressure 135/81 Pulse Oximetry 100 Oxygen Delivery Room Air 05/04/25 00:00 05/04/25 09:43 Temperature 99.0 F Pulse Rate 90 84 Respiratory Rate 18 Blood Pressure 143/77 H Pulse Oximetry 100 Oxygen Delivery Intake/Output Intake/Output: Intake & Output 05/01/25 05/02/25 05/03/25 05/04/25 23:59 23:59 23:59 23:59 Intake Total 7374 198 2249 590 Output Total 1000 1900 1000 Balance 70 -1660 2110 -410 Meds/Results Medications: Active Medications Generic Name Dose Route Start Last Admin Trade Name Freq PRN Reason Stop Dose Admin Acetaminophen 650 mg 05/04/25 04:17 05/04/25 06:22 Acetaminophen 325 Mg Tablet PO 650 mg Q4H PRN Administration Pain Albuterol/Ipratropium 3 ml 04/28/25 01:32 Ipratropium 0.5 Mg/Albuterol Sulfate 2.5 Mg Ampul.Neb 3 Ml INHALATION Q6HRT PRN Shortness Of Breath Or Wheezing Amlodipine Besylate 10 mg 04/28/25 09:00 05/04/25 09:42 Amlodipine Besylate 10 Mg Tablet PO 10 mg DAILY SHELIA Administration Amoxicillin/Clavulanate Potassium 1 tablet 05/03/25 09:25 05/04/25 09:42 Amoxicillin/Clavulanate K 875-125 Mg Tab PO 05/08/25 09:24 1 tablet Q12HR SHELIA Administration Cyanocobalamin 1,000 mcg 04/29/25 09:00 05/04/25 09:42 Cyanocobalamin 1,000 Mcg Tablet PO 1,000 mcg QAM SHELIA Administration Dextrose 12.5 gm 04/28/25 00:29 05/03/25 01:29 Dextrose 50% 25 Gm/50 Ml Syringe IV PUSH 12.5 gm PRN PRN Administration Hypoglycemia Protocol Epoetin Jaleel-epbx 10,000 units 04/30/25 09:00 05/02/25 10:00 Epoetin Jaleel-Epbx 10,000 Units/Ml Vial SUB-Q 10,000 units TUTHSA@09 SHELIA Administration Folic Acid 1 mg 04/28/25 09:00 05/04/25 09:42 Folic Acid 1 Mg Tablet PO 1 mg DAILY SHELIA Administration Gabapentin 100 mg 04/28/25 09:00 05/04/25 09:42 Gabapentin 100 Mg Capsule PO 100 mg Q12HR SHELIA Administration Glucagon 1 mg 04/28/25 00:29 Glucagon For Inj 1 Mg Vial IM PRN PRN Hypoglycemia Protocol Glucose 15 gm 04/28/25 00:29 Glucose Oral Gel 15 Gm Of Glucse In 37.5 Gm Tube PO PRN PRN Hypoglycemia Protocol Hydralazine HCl 10 mg 04/28/25 06:00 05/04/25 13:23 Hydralazine 10 Mg Tablet PO 10 mg Q8HR SHELIA Administration Dextrose 1,000 mls @ 100 mls/hr 04/28/25 00:29 Dextrose 5% 1,000 Ml IVPB PRN PRN Hypoglycemia Protocol Sodium Chloride 1,000 mls @ 75 mls/hr 05/02/25 10:45 05/04/25 13:25 Normal Saline Iv IV CONT 75 mls/hr .[id number] SHELIA Infusion Insulin Aspart 2 - 5 units 05/02/25 17:00 05/04/25 12:13 Insulin Aspart (*Bkc) 100 Units/Ml SUB-Q Not Given TIDWM SHELIA Protocol Isosorbide Dinitrate 20 mg 04/28/25 09:00 05/04/25 09:42 Isosorbide Dinitrate 10 Mg Tablet PO 20 mg Q12HR SHELIA Administration Metoprolol Tartrate 12.5 mg 05/02/25 21:00 05/04/25 09:43 Metoprolol Tartrate 12.5 Mg Tablet PO 12.5 mg Q12HR SHELIA Administration Ondansetron HCl 4 mg 04/28/25 00:20 05/02/25 08:12 Ondansetron Inj 4 Mg/2 Ml Vial IV PUSH 4 mg Q4H PRN Administration Nausea And Vomiting Pantoprazole Sodium 40 mg 04/28/25 21:00 05/04/25 09:42 Pantoprazole 40 Mg Tablet PO 40 mg Q12HR SHELIA Administration Polyethylene Glycol 17 gm 04/28/25 12:00 05/04/25 13:23 Polyethylene Glycol 3350 17 Gm Powd.Pack PO 17 gm NOON SHELIA Administration Sodium Bicarbonate 1,300 mg 04/28/25 09:00 05/04/25 09:42 Sodium Bicarbonate Tab 650 Mg Tablet PO 1,300 mg BID SHELIA Administration Vitamin D 25 mcg 04/28/25 09:00 05/04/25 09:42 Cholecalciferol (Vitamin D3) 25 Mcg (1,000 Units) Tablet PO 25 mcg DAILY SHELIA Administration Radiology Results: ITS Impressions Renal Ultrasound 04/28/25 16:52 IMPRESSION: 1. No hydronephrosis. 2. Right kidney is mildly hyperechoic suggestive of medical renal disease. 3. Limited study as above. If symptoms persist or worsen, consider a short-term follow-up study or additional imaging for further assessment. Hip/Pelvis X-Ray 05/03/25 17:35 Impression: No acute fracture or malalignment. Knee X-Ray 05/03/25 17:40 Impression: No acute fracture or malalignment. Tibia/Fibula X-Ray 05/03/25 17:57 Impression: No acute fracture or malalignment. Head CT 05/04/25 08:25 IMPRESSION: 1. No fracture or acute intracranial process. 2. Small old lacunar infarct at the right parietal lobe and moderate scattered white matter hypoattenuation consistent with chronic small vessel ischemic disease. Labs Labs: Laboratory Results - last 24 hr 05/03/25 05/03/25 05/04/25 17:40 21:56 05:38 WBC 8.4 RBC 2.50 L Hgb 7.2 L Hct 23.9 L MCV 95.6 MCH 28.8 MCHC 30.1 L RDW 14.3 Plt Count 258 MPV 9.5 Immature Gran % (Auto) 0.4 Neut % (Auto) 55.4 Lymph % (Auto) 26.7 [place] % (Auto) 14.2 H Eos % (Auto) 2.8 Baso % (Auto) 0.5 Lymph # (Auto) 2.25 [place] # (Auto) 1.2 H Eos # (Auto) 0.2 Baso # (Auto) 0.0 Abs Immat Gran (auto) 0.03 Absolute Neuts (auto) 4.7 Absolute Nucleated RBC 0.000 Nucleated RBC % 0.0 Sodium 138 Potassium 3.9 Chloride 107 Carbon Dioxide 20 L Anion Gap 11 BUN 44 H Creatinine 3.73 H Estim Creat Clear Calc Not Reportable Estimated GFR 12 L Glucose 114 H POC Capillary Glucose 124 H 262 H Calcium 7.8 L Phosphorus 5.7 H Magnesium 2.0 Total Bilirubin 0.4 AST 20 ALT 11 Alkaline Phosphatase 83 Total Protein 6.5 Albumin 3.4 L 05/04/25 05/04/25 08:15 11:41 WBC RBC Hgb Hct MCV MCH MCHC RDW Plt Count MPV Immature Gran % (Auto) Neut % (Auto) Lymph % (Auto) [place] % (Auto) Eos % (Auto) Baso % (Auto) Lymph # (Auto) [place] # (Auto) Eos # (Auto) Baso # (Auto) Abs Immat Gran (auto) Absolute Neuts (auto) Absolute Nucleated RBC Nucleated RBC % Sodium Potassium Chloride Carbon Dioxide Anion Gap BUN Creatinine Estim Creat Clear Calc Estimated GFR Glucose POC Capillary Glucose 109 H 126 H Calcium Phosphorus Magnesium Total Bilirubin AST ALT Alkaline Phosphatase Total Protein Albumin Quality VTE Prophylaxis VTE prophylaxis: mechanical ordered
[2025-05-04 13:59] VITALS: BP 126/70; PULSE 72; RESP 18; TEMP 36.8; O2SAT 99
--- NOTE | 2025-05-04 15:13 | PC.NURSE ---
This patient, Deanna Partida, was moved to [facility] on 05/04/25 at 1513. Personal belongings sent with patient.
[2025-05-04 20:39] VITALS: PULSE 84
[2025-05-04 21:30] VITALS: BP 146/64; PULSE 83; RESP 16; TEMP 37; O2SAT 96
[2025-05-05] VITALS (8 sets, daily range): BP systolic 107–152; BP diastolic 52–66; PULSE 68–78; RESP 16–18; TEMP 36.3–37.4; O2SAT 94–99
[2025-05-05 05:52] LABS: Hematocrit 21.9 % (37.0-47.0); Immature Granulocyte Percent A 0.5 % (0-0.5); Lymphocytes Absolute Auto 2.97 K/mm3 (0.9-3.2); Mean Corpuscular HGB Conc 31.1 g/dl (32-36); Mean Corpuscular Hemoglobin 29.3 pg (26-34); Mean Corpuscular Volume 94.4 fl (80-100); Nucleated Red Blood Cells Absolute Auto 0.000 K/mm3 (0.0-0.012); Nucleated Red Blood Cells Perc 0.0 % (0.0-0.2); Platelet Count Result 248 k/mm3 (150-375); Red Blood Count 2.32 M/mm3 (4.2-5.4); White Blood Count 8.4 K/mm3 (4.5-10.0)
[2025-05-05 05:56] LABS: Hemoglobin 6.8 g/dL (12.0-15.0)
[2025-05-05 06:10] LABS: Alanine Aminotransferase 7 U/L (6-35); Albumin Level 3.0 g/dL (3.5-5.1); Alkaline Phosphatase 67 U/L (38-126); Anion Gap 6 mmol/L (4-12); Aspartate Amino Transferase 20 U/L (14-36); Bilirubin,Total 0.5 mg/dL (0.2-1.3); Blood Urea Nitrogen 45 mg/dL (7-17); Calcium 7.7 mg/dL (8.4-10.2); Carbon Dioxide 21 mmol/L (22-30); Chloride 110 mmol/L (98-107); Cholesterol 136 mg/dL (0-200); Estimated Glomerular Filt Rate 11; Glucose 101 mg/dL (65-110); HDL Direct 48 mg/dL; Magnesium 2.2 mg/dL (1.6-2.3); Potassium 4.3 mmol/L (3.4-5.0); Sodium 137 mmol/L (137-145); Total Protein 5.9 g/dL (6.3-8.2); Triglycerides 88 mg/dL (<150)
[2025-05-05] MEDS: GABAPENTIN 100 MG CAPSULE PO ×2 (09:30→21:21)
[2025-05-05] MEDS: CYANOCOBALAMIN 1,000 MCG TABLET 1000 MCG PO (09:30)
[2025-05-05] MEDS: FOLIC ACID 1 MG TABLET PO (09:30)
[2025-05-05] MEDS: ISOSORBIDE DINITRATE 10 MG TABLET 20 MG PO ×2 (09:30→21:20)
[2025-05-05] MEDS: EPOETIN ALFA-EPBX 10,000 UNITS/ML VIAL 10000 UNITS SUB-Q (09:30)
[2025-05-05] MEDS: PANTOPRAZOLE 40 MG TABLET PO ×2 (09:30→21:20)
[2025-05-05] MEDS: SODIUM BICARBONATE TAB 650 MG TABLET 1300 MG PO ×2 (09:30→17:24)
[2025-05-05] MEDS: CHOLECALCIFEROL (VITAMIN D3) 25 MCG (1,000 UNITS) TABLET PO (09:30)
[2025-05-05] MEDS: METOPROLOL TARTRATE 12.5 MG TABLET PO ×2 (09:32→21:20)
[2025-05-05] MEDS: SODIUM CHLORIDE 0.9% IV 250 ML 30 ML IV CONT (09:40)
--- NOTE | 2025-05-05 12:17 | P.PNIM_ITS ---
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 - Unspecified visual loss Status: Acute (4) Hematemesis with nausea: Code(s): K92.0 - Hematemesis Status: Acute (5) Coffee ground emesis: Code(s): K92.0 - Hematemesis Status: Acute (6) Erosive esophagitis: Code(s): K22.10 - Ulcer of esophagus without bleeding Status: Acute (7) Acute on chronic kidney failure: Qualifiers: Acute renal failure type: unspecified Chronic kidney disease stage: unspecified stage Qualified Code(s): N17.9 - Acute kidney failure, unspecified; N18.9 - Chronic kidney disease, unspecified Code(s): N17.9 - Acute kidney failure, unspecified; N18.9 - Chronic kidney disease, unspecified Status: Acute (8) UTI (urinary tract infection): Qualifiers: Hematuria presence: without hematuria Urinary tract infection type: acute cystitis Qualified Code(s): N30.00 - Acute cystitis without hematuria Code(s): N39.0 - Urinary tract infection, site not specified Status: Acute (9) Anemia in chronic kidney disease (CKD): Qualifiers: Chronic kidney disease stage: stage 4 (GFR 15-29) Qualified Code(s): N18.4 - Chronic kidney disease, stage 4 (severe); D63.1 - Anemia in chronic kidney disease Code(s): N18.9 - Chronic kidney disease, unspecified; D63.1 - Anemia in chronic kidney disease Status: Acute (10) Anemia: Code(s): D64.9 - Anemia, unspecified Status: Chronic Plan 60 year old female patient with history of diabetes with retinopathy causing blindness, stage 4 chronic kidney disease with hypertension, CHF, esophagitis, hyperlipidemia, hematemesis, suicidal ideation, chronic anemia who was admitted to the hospital due to coffee-ground emesis and the discovery of acute on chronic kidney failure. Patient reports she is not been feeling well for several days and been dealing with nausea and vomiting.She has a history esophagitis and gastritis for which she is on Pepcid and pantoprazole. Patient was seen at [facility] in the emergency department but her labs indicated metabolic acidosis with an anion gap elevation as well as worsening of renal failure so decision was made to transfer her to this facility. Nephrology and GI were consulted. Underwent EGD which showed reflux esophagitis and hiatal hernia. 1. Acute on chronic anemia: Anemia of chronic disease Coffee-ground emesis Status post EGD which shows reflux esophagitis Status post 1 unit of PRBC Hemoglobin less than 7 today, we will transfuse another unit Continue with PPI b.i.d. Will add Carafate Continue with folic acid, erythropoietin analog Will add iron supplementation 2. ARACELIS on CKD stage 5: Nephrology following Avoid nephrotoxins IV fluids have been stopped Monitor for potassium levels Recheck BMP in a.m. 3. E coli UTI: Continue with Augmentin 4. History of fall: CT scan of right knee negative for any tibia/fibular fractures PT/OT as tolerated 5. Old lacunar infarct: Seen on CT Not on aspirin right now Will hold off due to anemia Lipid panel unremarkable Mental status seems to be much better 6. History of hypertension: Continue with Norvasc, hydralazine, metoprolol 7. Diabetes mellitus: Blood glucose checked t.i.d. a.c. and HS Continue with sliding scale insulin Adjust dose as needed Hemoglobin A1c 6.3 Monitor for any hypoglycemic episodes 8. Code status: Full 9. DVT prophylaxis: SCD on left 10. Disposition: Anticipate discharge within next 24-48 hours if remains stable Time Spent With Patient Time: 39 mins Subjective Date/time seen: 05/05/25 12:17 Interval history: No acute events overnight Discussed her care with her spouse who was present at bedside Review of Systems Review of Systems: All systems reviewed & are unremarkable except as noted in HPI and below Exam Narrative: GENERAL: Chronically ill-appearing not in acute distress HEAD: Normocephalic, atraumatic. ENT:? Mucous membranes moist. Blind, abnormal ocular appearance CHEST: Clear to auscultation.? No respiratory distress. HEART: Regular rate and rhythm. ? Normal peripheral pulses. ABDOMEN: Soft, nontender, nondistended. Hypoactive bowel sounds. EXTREMITIES: Normal range of motion. No peripheral edema. Right BKA SKIN: Warm dry normal color NEURO: Awake, alert oriented Objective Data Vital Signs Vital Signs: Vital Signs - 24 hr 05/04/25 13:59 05/04/25 20:00 05/04/25 20:39 Temperature 98.2 F Pulse Rate 72 84 Respiratory Rate 18 Blood Pressure 126/70 Pulse Oximetry 99 Oxygen Delivery Room Air 05/04/25 21:30 05/05/25 06:42 05/05/25 08:00 Temperature 98.6 F 97.5 F L Pulse Rate 83 73 Respiratory Rate 16 18 Blood Pressure 146/64 H 152/63 H Pulse Oximetry 96 94 Oxygen Delivery Room Air 05/05/25 09:32 05/05/25 11:20 Temperature 98.6 F Pulse Rate 78 68 Respiratory Rate 16 Blood Pressure 114/53 L Pulse Oximetry 98 Oxygen Delivery Intake/Output Intake/Output: Intake & Output 05/02/25 05/03/25 05/04/25 05/05/25 23:59 23:59 23:59 23:59 Intake Total 240 2110 1310 440 Output Total 1900 1000 Balance -1660 2110 310 440 Meds/Results Medications: Active Medications Generic Name Dose Route Start Last Admin Trade Name Thomasq PRN Reason Stop Dose Admin Acetaminophen 650 mg 05/04/25 04:17 05/04/25 06:22 Acetaminophen 325 Mg Tablet PO 650 mg Q4H PRN Administration Pain Albuterol/Ipratropium 3 ml 04/28/25 01:32 Ipratropium 0.5 Mg/Albuterol Sulfate 2.5 Mg Ampul.Neb 3 Ml INHALATION Q6HRT PRN Shortness Of Breath Or Wheezing Amlodipine Besylate 10 mg 04/28/25 09:00 05/05/25 09:30 Amlodipine Besylate 10 Mg Tablet PO 10 mg DAILY SHELIA Administration Amoxicillin/Clavulanate Potassium 1 tablet 05/03/25 09:25 05/05/25 09:30 Amoxicillin/Clavulanate K 875-125 Mg Tab PO 05/08/25 09:24 1 tablet Q12HR SHELIA Administration Cyanocobalamin 1,000 mcg 04/29/25 09:00 05/05/25 09:30 Cyanocobalamin 1,000 Mcg Tablet PO 1,000 mcg QAM SHELIA Administration Dextrose 12.5 gm 04/28/25 00:29 05/03/25 01:29 Dextrose 50% 25 Gm/50 Ml Syringe IV PUSH 12.5 gm PRN PRN Administration Hypoglycemia Protocol Epoetin Jaleel-epbx 10,000 units 04/30/25 09:00 05/05/25 09:30 Epoetin Jaleel-Epbx 10,000 Units/Ml Vial SUB-Q 10,000 units TUTHSA@09 SHELIA Administration Folic Acid 1 mg 04/28/25 09:00 05/05/25 09:30 Folic Acid 1 Mg Tablet PO 1 mg DAILY SHELIA Administration Gabapentin 100 mg 04/28/25 09:00 05/05/25 09:30 Gabapentin 100 Mg Capsule PO 100 mg Q12HR SHELIA Administration Glucagon 1 mg 04/28/25 00:29 Glucagon For Inj 1 Mg Vial IM PRN PRN Hypoglycemia Protocol Glucose 15 gm 04/28/25 00:29 Glucose Oral Gel 15 Gm Of Glucse In 37.5 Gm Tube PO PRN PRN Hypoglycemia Protocol Hydralazine HCl 10 mg 04/28/25 06:00 05/05/25 06:06 Hydralazine 10 Mg Tablet PO 10 mg Q8HR SHELIA Administration Dextrose 1,000 mls @ 100 mls/hr 04/28/25 00:29 Dextrose 5% 1,000 Ml IVPB PRN PRN Hypoglycemia Protocol Sodium Chloride 1,000 mls @ 75 mls/hr 05/02/25 10:45 05/04/25 17:39 Normal Saline Iv IV CONT Not Given On Hold: 05/04/25 19:05 .[id number] [facility] Sodium Chloride 250 mls @ 30 mls/hr 05/05/25 06:32 05/05/25 09:40 Normal Saline Iv IV CONT 05/05/25 14:51 30 mls/hr .Q8H20M STA Administration Insulin Aspart 2 - 5 units 05/02/25 17:00 05/05/25 09:27 Insulin Aspart (*Bkc) 100 Units/Ml SUB-Q Not Given TIDWM [facility] Protocol Isosorbide Dinitrate 20 mg 04/28/25 09:00 05/05/25 09:30 Isosorbide Dinitrate 10 Mg Tablet PO 20 mg Q12HR SHELIA Administration Metoprolol Tartrate 12.5 mg 05/02/25 21:00 05/05/25 09:32 Metoprolol Tartrate 12.5 Mg Tablet PO 12.5 mg Q12HR SHELIA Administration Ondansetron HCl 4 mg 04/28/25 00:20 05/02/25 08:12 Ondansetron Inj 4 Mg/2 Ml Vial IV PUSH 4 mg Q4H PRN Administration Nausea And Vomiting Pantoprazole Sodium 40 mg 04/28/25 21:00 05/05/25 09:30 Pantoprazole 40 Mg Tablet PO 40 mg Q12HR SHELIA Administration Polyethylene Glycol 17 gm 04/28/25 12:00 05/04/25 13:23 Polyethylene Glycol 3350 17 Gm Powd.Pack PO 17 gm NOON SHELIA Administration Sodium Bicarbonate 1,300 mg 04/28/25 09:00 05/05/25 09:30 Sodium Bicarbonate Tab 650 Mg Tablet PO 1,300 mg BID SHELIA Administration Sucralfate 1,000 mg 05/05/25 11:30 Sucralfate Susp 100 Mg/Ml 10 Ml Udc PO ACHS SHELIA Vitamin D 25 mcg 04/28/25 09:00 05/05/25 09:30 Cholecalciferol (Vitamin D3) 25 Mcg (1,000 Units) Tablet PO 25 mcg DAILY SHELIA Administration Radiology Results: ITS Impressions Renal Ultrasound 04/28/25 16:52 IMPRESSION: 1. No hydronephrosis. 2. Right kidney is mildly hyperechoic suggestive of medical renal disease. 3. Limited study as above. If symptoms persist or worsen, consider a short-term follow-up study or additional imaging for further assessment. Hip/Pelvis X-Ray 05/03/25 17:35 Impression: No acute fracture or malalignment. Knee X-Ray 05/03/25 17:40 Impression: No acute fracture or malalignment. Tibia/Fibula X-Ray 05/03/25 17:57 Impression: No acute fracture or malalignment. Head CT 05/04/25 08:25 IMPRESSION: 1. No fracture or acute intracranial process. 2. Small old lacunar infarct at the right parietal lobe and moderate scattered white matter hypoattenuation consistent with chronic small vessel ischemic disease. Tibia/Fibula CT 05/04/25 18:12 IMPRESSION: 1. No fracture. 2. Severe right knee osteoarthritis. Labs Labs: Laboratory Results - last 24 hr 0905/04/25 05/05/25 17:02 20:37 05:24 WBC 8.4 RBC 2.32 L Hgb 6.8 L* Hct 21.9 L MCV 94.4 MCH 29.3 MCHC 31.1 L RDW 14.8 H Plt Count 248 MPV 9.9 Immature Gran % (Auto) 0.5 Neut % (Auto) 46.0 Lymph % (Auto) 35.4 [place] % (Auto) 14.4 H Eos % (Auto) 3.3 Baso % (Auto) 0.4 Lymph # (Auto) 2.97 [place] # (Auto) 1.2 H Eos # (Auto) 0.3 Baso # (Auto) 0.0 Abs Immat Gran (auto) 0.04 H Absolute Neuts (auto) 3.9 Absolute Nucleated RBC 0.000 Nucleated RBC % 0.0 Sodium 137 Potassium 4.3 Chloride 110 H Carbon Dioxide 21 L Anion Gap 6 BUN 45 H Creatinine 4.12 H Estim Creat Clear Calc Not Reportable Estimated GFR 11 L Glucose 101 POC Capillary Glucose 187 H 154 H Calcium 7.7 L Phosphorus 5.2 H Magnesium 2.2 Total Bilirubin 0.5 AST 20 ALT 7 Alkaline Phosphatase 67 Total Protein 5.9 L Albumin 3.0 L Triglycerides 88 Cholesterol 136 LDL Cholesterol Direct 40 HDL Direct 48 Blood Type Antibody Screen Crossmatch 05/05/25 05/05/25 05/05/25 06:44 08:17 11:30 WBC RBC Hgb Hct MCV MCH MCHC RDW Plt Count MPV Immature Gran % (Auto) Neut % (Auto) Lymph % (Auto) [place] % (Auto) Eos % (Auto) Baso % (Auto) Lymph # (Auto) [place] # (Auto) Eos # (Auto) Baso # (Auto) Abs Immat Gran (auto) Absolute Neuts (auto) Absolute Nucleated RBC Nucleated RBC % Sodium Potassium Chloride Carbon Dioxide Anion Gap BUN Creatinine Estim Creat Clear Calc Estimated GFR Glucose POC Capillary Glucose 101 108 H Calcium Phosphorus Magnesium Total Bilirubin AST ALT Alkaline Phosphatase Total Protein Albumin Triglycerides Cholesterol LDL Cholesterol Direct HDL Direct Blood Type A Negative Antibody Screen Negative Crossmatch See Detail Quality VTE Prophylaxis VTE prophylaxis: mechanical ordered
[2025-05-05] MEDS: SUCRALFATE SUSP 100 MG/ML 10 ML UDC 1000 MG PO ×3 (12:43→21:20)
[2025-05-05] MEDS: INSULIN ASPART (*BKC) 100 UNITS/ML SUB-Q (17:23)
[2025-05-06 05:52] LABS: Hematocrit 27.7 % (37.0-47.0); Hemoglobin 8.5 g/dL (12.0-15.0); Immature Granulocyte Percent A 0.6 % (0-0.5); Lymphocytes Absolute Auto 3.05 K/mm3 (0.9-3.2); Mean Corpuscular HGB Conc 30.7 g/dl (32-36); Mean Corpuscular Hemoglobin 28.8 pg (26-34); Mean Corpuscular Volume 93.9 fl (80-100); Nucleated Red Blood Cells Absolute Auto 0.000 K/mm3 (0.0-0.012); Nucleated Red Blood Cells Perc 0.0 % (0.0-0.2); Platelet Count Result 272 k/mm3 (150-375); Red Blood Count 2.95 M/mm3 (4.2-5.4); White Blood Count 12.1 K/mm3 (4.5-10.0)
[2025-05-06] MEDS: SUCRALFATE SUSP 100 MG/ML 10 ML UDC 1000 MG PO (05:58)
[2025-05-06 06:00] VITALS: BP 149/59; PULSE 77; RESP 16; TEMP 36.2; O2SAT 94
[2025-05-06 06:05] LABS: Anion Gap 8 mmol/L (4-12); Blood Urea Nitrogen 46 mg/dL (7-17); Calcium 7.8 mg/dL (8.4-10.2); Carbon Dioxide 21 mmol/L (22-30); Chloride 107 mmol/L (98-107); Estimated Glomerular Filt Rate 11; Glucose 153 mg/dL (65-110); Potassium 4.9 mmol/L (3.4-5.0); Sodium 136 mmol/L (137-145)
[2025-05-06 08:34] VITALS: PULSE 80
[2025-05-06] MEDS: CYANOCOBALAMIN 1,000 MCG TABLET 1000 MCG PO (08:34)
[2025-05-06] MEDS: ISOSORBIDE DINITRATE 10 MG TABLET 20 MG PO (08:34)
[2025-05-06] MEDS: CHOLECALCIFEROL (VITAMIN D3) 25 MCG (1,000 UNITS) TABLET PO (08:34)
[2025-05-06] MEDS: GABAPENTIN 100 MG CAPSULE PO (08:34)
[2025-05-06] MEDS: METOPROLOL TARTRATE 12.5 MG TABLET PO (08:34)
[2025-05-06] MEDS: PANTOPRAZOLE 40 MG TABLET PO (08:34)
[2025-05-06] MEDS: SODIUM BICARBONATE TAB 650 MG TABLET 1300 MG PO (08:34)
[2025-05-06] MEDS: FOLIC ACID 1 MG TABLET PO (08:35)
--- NOTE | 2025-05-06 10:28 | PM.DS ---
DS: Admitting Diagnosis Discharge Date 05/06/25 Admitting Diagnosis Upper GI bleed DS: Discharge Diagnosis Discharge Diagnosis (1) Hypertension: Code(s): I10 - Essential (primary) hypertension Status: Chronic (2) Hyperlipidemia: Code(s): E78.5 - Hyperlipidemia, unspecified Status: Acute (3) Diabetes mellitus: Qualifiers: Diabetes mellitus complication status: with other specified complication Diabetes mellitus retirement insulin use: unspecified retirement insulin use status Diabetes mellitus type: type 2 Qualified Code(s): E11.69 - Type 2 diabetes mellitus with other specified complication Code(s): E11.9 - Type 2 diabetes mellitus without complications Status: Acute (4) 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 - Unspecified visual loss Status: Acute (5) Intractable vomiting with nausea: Code(s): R11.2 - Nausea with vomiting, unspecified Status: Acute (6) Hematemesis with nausea: Code(s): K92.0 - Hematemesis Status: Acute (7) Coffee ground emesis: Code(s): K92.0 - Hematemesis Status: Acute (8) Erosive esophagitis: Code(s): K22.10 - Ulcer of esophagus without bleeding Status: Acute (9) Acute on chronic kidney failure: Qualifiers: Acute renal failure type: unspecified Chronic kidney disease stage: unspecified stage Qualified Code(s): N17.9 - Acute kidney failure, unspecified; N18.9 - Chronic kidney disease, unspecified Code(s): N17.9 - Acute kidney failure, unspecified; N18.9 - Chronic kidney disease, unspecified Status: Acute (10) Metabolic acidosis: Code(s): E87.20 - Acidosis, unspecified Status: Acute (11) UTI (urinary tract infection): Qualifiers: Hematuria presence: without hematuria Urinary tract infection type: acute cystitis Qualified Code(s): N30.00 - Acute cystitis without hematuria Code(s): N39.0 - Urinary tract infection, site not specified Status: Acute (12) Anemia in chronic kidney disease (CKD): Qualifiers: Chronic kidney disease stage: stage 4 (GFR 15-29) Qualified Code(s): N18.4 - Chronic kidney disease, stage 4 (severe); D63.1 - Anemia in chronic kidney disease Code(s): N18.9 - Chronic kidney disease, unspecified; D63.1 - Anemia in chronic kidney disease Status: Acute DS: Summary Hospital Course Reason for hospitalization: Coffee-ground emesis Hospital Course: 60 year old female patient with history of diabetes with retinopathy causing blindness, stage 4 chronic kidney disease with hypertension, CHF, esophagitis, hyperlipidemia, hematemesis, suicidal ideation, chronic anemia who was admitted to the hospital due to coffee-ground emesis and the discovery of acute on chronic kidney failure. Patient reports she is not been feeling well for several days and been dealing with nausea and vomiting.She has a history esophagitis and gastritis for which she is on Pepcid and pantoprazole. [place] [facility] [place] but her labs indicated metabolic acidosis with an anion gap elevation as well as worsening of renal failure so decision was made to transfer her to this facility. Nephrology and GI were consulted. Underwent EGD which showed reflux esophagitis and hiatal hernia. She received 2 units of PRBC while in the hospital. Patient was started on Carafate, folic acid, erythropoietin analog along with iron supplementation. Nephrology was consulted for her Deon I on CKD stage 5, treated supportively. Patient was advised to follow-up with a residential mental health worker at the [place]. She had fall, all imaging modalities were negative for any fracture. Treated with Augmentin for E coli UTI. Also found to have a old lacunar infarct on CT, continued with aspirin. Patient was discharged home in stable condition. Status at Discharge Overall status at discharge: patient is progressing back to baseline Time Spent with Patient Time attestation: Total time spent providing and/or coordinating discharge services: Exam Narrative: GENERAL: Chronically ill-appearing not in acute distress HEAD: Normocephalic, atraumatic. ENT:? Mucous membranes moist. Blind, abnormal ocular appearance CHEST: Clear to auscultation.? No respiratory distress. HEART: Regular rate and rhythm. ? Normal peripheral pulses. ABDOMEN: Soft, nontender, nondistended. Hypoactive bowel sounds. EXTREMITIES: Normal range of motion. No peripheral edema. Right BKA SKIN: Warm dry normal color NEURO: Awake, alert oriented DS: Data Data Completed and Pending Labs on day of discharge: Labs from last 24 hours 05/06/25 05/06/25 05/05/25 08:12 05:11 20:15 WBC 12.1 H RBC 2.95 L Hgb 8.5 L Hct 27.7 L MCV 93.9 MCH 28.8 MCHC 30.7 L RDW 14.6 H Plt Count 272 MPV 9.8 Immature Gran % (Auto) 0.6 H Neut % (Auto) 56.1 Lymph % (Auto) 25.3 [place] % (Auto) 14.3 H Eos % (Auto) 3.3 Baso % (Auto) 0.4 Lymph # (Auto) 3.05 [place] # (Auto) 1.7 H Eos # (Auto) 0.4 H Baso # (Auto) 0.1 Abs Immat Gran (auto) 0.07 H Absolute Neuts (auto) 6.8 H Absolute Nucleated RBC 0.000 Nucleated RBC % 0.0 Sodium 136 L Potassium 4.9 Chloride 107 Carbon Dioxide 21 L Anion Gap 8 BUN 46 H Creatinine 4.27 H Estim Creat Clear Calc Not Reportable Estimated GFR 11 L Glucose 153 H POC Capillary Glucose 140 H 123 H Calcium 7.8 L Blood Type Antibody Screen Crossmatch 05/05/25 05/05/25 05/05/25 17:03 11:30 06:44 WBC RBC Hgb Hct MCV MCH MCHC RDW Plt Count MPV Immature Gran % (Auto) Neut % (Auto) Lymph % (Auto) [place] % (Auto) Eos % (Auto) Baso % (Auto) Lymph # (Auto) [place] # (Auto) Eos # (Auto) Baso # (Auto) Abs Immat Gran (auto) Absolute Neuts (auto) Absolute Nucleated RBC Nucleated RBC % Sodium Potassium Chloride Carbon Dioxide Anion Gap BUN Creatinine Estim Creat Clear Calc Estimated GFR Glucose POC Capillary Glucose 233 H 108 H Calcium Blood Type A Negative Antibody Screen Negative Crossmatch See Detail Discharge Plan Discharge Attending physician on discharge: Fiordaliza Nur Consulting providers: Barry Rader Discharging Clinician: Fiordaliza Nur Anticipated Discharge Date/Time: 05/06/25 10:19 Patient Disposition: Home Activity: as tolerated Diet: heart healthy and renal Patient Instructions: Antibiotic Form Patient Language: Fijian Stand Alone Forms: General Discharge Information Follow-up/Referrals: UNKNOWN,DOCTOR [Primary Care Provider] - 2 Weeks Discharge Medications: New cyanocobalamin (vitamin B-12) [Vitamin B-12] 1,000 mcg Tablet 1,000 mcg PO QAM Qty: 30 0RF amoxicillin-pot clavulanate 875-125 mg tablet 1 tablet PO BID Qty: 4 0RF polysaccharide iron complex 150 mg iron Capsule 150 mg PO BIDWM Qty: 60 0RF metoprolol tartrate 25 mg tablet 12.5 mg PO BID Qty: 30 0RF sucralfate [Carafate] 1 gram tablet 1 g PO ACHS Qty: 120 0RF Continued darbepoetin jeffrey-albumin 40 mcg/mL solution 40 mcg subcut MONTHLY PRN (Reason: low hgb) Rx Instructions: give if hgb is less than 10 isosorbide dinitrate 10 mg tablet 20 mg PO BID amlodipine 10 mg tablet 10 mg PO DAILY gabapentin 100 mg capsule 100 mg PO BID sodium bicarbonate 650 mg tablet 1,300 mg PO BID Rx Instructions: 2 tabs BID hydralazine 10 mg tablet 10 mg PO TID metoclopramide HCl 5 mg tablet 5 mg PO Q8H PRN (Reason: nausea and vomiting) folic acid 1 mg tablet 1 mg PO DAILY pantoprazole 40 mg Tablet,Delayed Release (Dr/Ec) 40 mg PO Q12HR Qty: 60 0RF patiromer calcium sorbitex 8.4 gram powder in packet 8.4 g PO .ever aspirin [Adult Low Dose Aspirin] 81 mg tablet,delayed release (DR/EC) 81 mg PO DAILY cholecalciferol (vitamin D3) [Vitamin D3] 25 mcg (1,000 unit) capsule 25 mcg PO DAILY ipratropium-albuterol 0.5 mg-3 mg(2.5 mg base)/3 mL Solution For Nebulization 3 ml inhalation Q6HRT PRN (Reason: Shortness Of Breath Or Wheezing) Qty: 30 0RF polyethylene glycol 3350 [Miralax] 17 gram Powder In Packet 17 g PO NOON Qty: 14 0RF Discontinued famotidine 40 mg tablet 40 mg PO Q12H Date of admission: 04/30/25 10:54 Primary Care Provider: UNKNOWN,DOCTOR Admitting Provider: Aubrey Carrion Attending physician on admission: Aubrey Carrion Condition: Improved
== END 2025-05-06 13:11 | disposition home or self-care (01) | DRG 381 ==
LOC: ANHIMU 04-29 10:59 → ANH3MED 04-29 14:47
PROVIDERS: Internal Medicine; Internal Medicine Gastroenterology; Internal Medicine Nephrology; Nurse Practitioner; Admitting Provider Internal Medicine; Visit Provider Internal Medicine
PROC: 0DJ08ZZ Inspection of Upper Intestinal Tract, Via Natural or Artificial Opening Endoscopic (ICD-10-PCS; principal; 2025-04-28 15:00)
DX: K22.11 Ulcer of esophagus with bleeding (principal); D62 Acute posthemorrhagic anemia; E87.21 Acute metabolic acidosis; N18.5 Chronic kidney disease, stage 5; N39.0 Urinary tract infection, site not specified; I13.2 Hypertensive heart and chronic kidney disease with heart failure and with stage 5 chronic kidney disease, or end stage renal disease; N17.9 Acute kidney failure, unspecified; K21.00 Gastro-esophageal reflux disease with esophagitis, without bleeding; K52.9 Noninfective gastroenteritis and colitis, unspecified; K44.9 Diaphragmatic hernia without obstruction or gangrene; E11.319 Type 2 diabetes mellitus with unspecified diabetic retinopathy without macular edema; H54.8 Legal blindness, as defined in USA; I50.9 Heart failure, unspecified; E11.22 Type 2 diabetes mellitus with diabetic chronic kidney disease; E78.5 Hyperlipidemia, unspecified; E87.5 Hyperkalemia; E86.0 Dehydration; G25.2 Other specified forms of tremor; F41.9 Anxiety disorder, unspecified; F32.A Depression, unspecified; D63.1 Anemia in chronic kidney disease; B96.29 Other Escherichia coli [E. coli] as the cause of diseases classified elsewhere; W18.30XA Fall on same level, unspecified, initial encounter; Z91.51 Personal history of suicidal behavior; Z89.511 Acquired absence of right leg below knee; Z29.9 Encounter for prophylactic measures, unspecified; Z86.73 Personal history of transient ischemic attack (TIA), and cerebral infarction without residual deficits
CPT/HCPCS: 36415; 36430; 70450; 73521; 73560; 73590; 73700; 76770; 80048; 80053; 80061; 80069; 81001; 81050; 82550; 82570; 82607; 82728; 82746; 82948; 83036; 83540; 83550; 83605; 83735; 84100; 84145; 84156; 84300; 84540; 85014; 85018; 85025; 85652; 85999; 86140; 86850; 86900; 86901; 86923; 87040; 87045; 87046; 87086; 87186; 87427; 96361; 96365; 96366; 96372; 96375; A9270; G0378; J0696; J0780; J1815; J2003; J2020; J2405; J2470; J2704; J7030; J7050; J7120; P9016; Q5105

== ENCOUNTER 2025-05-23 17:35 | Emergency (ER) | payer OTHER, MEDICAID, SELFPAY ==
[2025-05-23] VITALS (24 sets, daily range): BP systolic 173–204; BP diastolic 76–143; PULSE 79–103; RESP 10–24; TEMP 36.2; O2SAT 96–100
--- NOTE | ~2025-05-23 | XR_ITS ---
EXAMINATION: XR chest 1V portable COMPARISON: No comparisons available. HISTORY: vomiting FINDINGS: The lungs are clear, no effusion. No pneumothorax. Heart is normal size. Mediastinal and hilar contours are within normal limits. There is a remote appearing fracture of the right humeral neck. Miscellaneous: None Impression: No acute cardiopulmonary abnormality. Reviewed, dictated and finalized at location P. Impression: No acute cardiopulmonary abnormality.
--- NOTE | ~2025-05-23 | CT_ITS ---
EXAMINATION: CT brain wo alisia, 05/23/2025 19:15 CDT HISTORY: head injury COMPARISON: No comparisons available. Technique: Axial images obtained of the brain without contrast. One or more of the following dose reduction techniques were used: automated exposure control, adjustment of the mA and/or kV according to patient size, use of iterative reconstruction technique. Findings: There are remote appearing bilateral basal ganglia lacunar infarcts. No acute infarct or hemorrhage. No midline shift or mass effect. Mastoid air cells unremarkable. Sinuses and orbits unremarkable. No acute fracture. Posterior subcutaneous soft tissue swelling. Impression: 1.No acute intracranial abnormality. Reviewed, dictated and finalized at location P. Impression: 1.No acute intracranial abnormality.
--- NOTE | ~2025-05-23 | CT_ITS ---
EXAMINATION: CT abdomen pelvis wo con, 05/23/2025 19:15 CDT HISTORY: vomiting, abdominal pain COMPARISON: No comparisons available. TECHNIQUE: CT scan of the abdomen and pelvis was performed without IV contrast. One or more of the following dose reduction techniques were used: automated exposure control, adjustment of the mA and/or kV according to patient size, use of iterative reconstruction technique. Unless otherwise stated, incidental findings do not require dedicated follow up imaging FINDINGS: CT abdomen: LUNG BASES: The lung bases are clear. The visualized portions of the heart and pericardium are unremarkable. LIVER: Mild cirrhotic disease of the liver suspected, artifact limits evaluation. Punctate calcified liver granulomas. SPLEEN: Punctate calcified splenic granulomas.. KIDNEYS: Right Kidney: Unremarkable. No calculi. No hydronephrosis. Left Kidney: Unremarkable. No calculi. No hydronephrosis ADRENAL GLANDS: Nonspecific thickening of the adrenal glands bilaterally. PANCREAS: Mild atrophy of the pancreas. GALLBLADDER/BILIARY: Unremarkable. No biliary dilatation. STOMACH AND ESOPHAGUS: Moderate hiatal hernia. BOWEL/MESENTERY: The rectum is dilated measuring 6.5 cm with minimal pericolonic stranding and moderate fecal content. The remaining large bowel demonstrates moderate fecal content but no diverticulitis. Appendix not identified. No stranding within the mesentery. There are no thickened or dilated loops of small bowel. ADENOPATHY/RETROPERITONEUM: No lymphadenopathy. AORTA/VASCULATURE: Normal caliber aorta. FREE FLUID OR FREE AIR: None. CT pelvis: SOLID ORGANS/REPRODUCTIVE: The uterus is atrophic. There is no adnexal mass. BLADDER: The bladder appears distended. OSSEOUS STRUCTURES: Right hip arthroplasty. No sclerotic or lytic lesions. Moderate degenerative changes of the left acetabular femoral joint. There is a remote appearing superior endplate fracture of L5. OVERLYING SOFT TISSUES: Unremarkable. IMPRESSION: 1. Distended bladder, correlate for bladder outlet obstruction. 2. Mild fecal impaction with probable mild proctitis. 3. Incidental findings above Reviewed, dictated and finalized at location P.
[2025-05-23] MEDS: ONDANSETRON INJ 4 MG/2 ML VIAL IV PUSH (18:24)
--- NOTE | 2025-05-23 18:24 | ECG_ITS ---
Test Date: 2025-05-23 18:39:08 Measurements Intervals [place] Rate: 87 P: 59 PA: 192 QRS: -29 QRSD: 139 T: 97 QT: 416 QTc: 503 Interpretive Statements SINUS RHYTHM LEFT BUNDLE BRANCH BLOCK ABNORMAL ECG Compared to ECG 04/27/2025 18:45:33 No significant changes Electronically Signed On 05-24-2025 08:37:27 CDT by Senthil Fan D.O.
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
--- NOTE | 2025-05-23 19:00 | PC.NURSE ---
ASSUMED CARE. REPORT RECEIVED FROM YI KING AT THE BEDSIDE ATTEMPTING TO DRAW BLOOD.
--- NOTE | 2025-05-23 19:21 | PC.NURSE ---
PATIENT TO CT VIA STRETCHER AND ISOLATION CLOTHING
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
[2025-05-23] MEDS: SODIUM CHLORIDE 0.9% IV 1,000 ML 999 ML IV CONT (19:35)
[2025-05-23] MEDS: METOCLOPRAMIDE HCL INJ 10 MG/2 ML VIAL IV PUSH (19:35)
[2025-05-23 20:01] LABS: Hematocrit 42.4 % (35.0-49.0); Hemoglobin 13.2 g/dL (12.0-15.0); Immature Granulocyte Percent A 0.4 % (0.0-0.0); Lymphocytes Absolute Auto 0.76 K/mm3 (1.10-4.50); Mean Corpuscular HGB Conc 31.1 g/dL (32-36); Mean Corpuscular Hemoglobin 28.8 pg (27.0-31.0); Mean Corpuscular Volume 92.6 fL (78.0-102.0); Nucleated Red Blood Cells Absolute Auto 0.00 K/mm3 (0.00-0.00); Nucleated Red Blood Cells Perc 0.0 % (0-0.0); Platelet Count Result 340 K/mm3 (150-420); Red Blood Count 4.58 M/mm3 (4.20-5.40); White Blood Count 9.2 K/mm3 (4.8-10.8)
[2025-05-23 20:13] LABS: Alanine Aminotransferase 12 U/L (6-35); Albumin Level 4.3 g/dL (3.5-5.1); Alkaline Phosphatase 120 U/L (38-126); Amylase 72 U/L (30-110); Anion Gap 21 mmol/L (4-12); Aspartate Amino Transferase 20 U/L (14-36); Bilirubin,Total 0.8 mg/dL (0.2-1.3); Blood Urea Nitrogen 47 mg/dL (7-17); Calcium 9.4 mg/dL (8.4-10.2); Carbon Dioxide 11 mmol/L (22-30); Chloride 112 mmol/L (98-107); Estimated Glomerular Filt Rate 11; Glucose 206 mg/dL (65-110); Lipase 98 U/L (23-300); Osmolality Calculated 316 mOsm/kg (285-295); Potassium 5.3 mmol/L (3.4-5.0); Sodium 144 mmol/L (137-145); Total Protein 9.5 g/dL (6.3-8.2)
[2025-05-23 20:25] LABS: Troponin I < 0.012 ng/mL (0.000-0.034)
--- NOTE | 2025-05-23 20:31 | PC.NURSE ---
DR FOX HAS BEEN NOTIFIED OF ELEVATED BLOOD PRESSURES. PATIENT HAS NOT BEEN ABLE TO TAKE HTN MEDICATIONS DUE TO VOMITING. AT THE BEDSIDE WEARING ISOLATION GEAR. CALL LIGHT IS IN REACH. CURTAIN OPEN FOR MONITORING. DOOR REMAINS CLOSED.
--- NOTE | 2025-05-23 21:08 | PC.NURSE ---
PATIENT RESTING QUIETLY ON STRETCHER. IV INFUSING TO LEFT HAND. AT HER SIDE. CALL LIGHT IN REACH. DENIES ANY NEEDS AT THIS TIME.
[2025-05-23 21:25] LABS: Add Urine Microscopic? YES; Appearance Urine Clear (Clear); Glucose Urine UA 1+ (Negative); Leukocyte Esterase Ur Negative (Negative); Nitrate Urine Negative (Negative); Specific Grav Ur 1.015 (1.010-1.020)
[2025-05-23] MEDS: METOPROLOL TARTRATE 12.5 MG TABLET PO (21:47)
--- NOTE | 2025-05-23 21:57 | PC.NURSE ---
PATIENT RESTING ON STRETCHER. NO NEEDS VOICED AT THIS TIME. REPOSITIONED PILLOW FOR COMFORT. CALL LIGHT IN REACH. WENT HOME TO GET CLEAN CLOTHING. PATIENT HAS NOT VOMITED SINCE GETTING REGLAN IVP
--- NOTE | 2025-05-23 22:52 | PC.NURSE ---
BRIGHT CATHETER REMOVED AND PLACED INTO RED BIOHAZARD BAG.
== END 2025-05-23 22:52 | disposition home or self-care (01) ==
PROVIDERS: Emergency Provider Emergency Medicine; Referring Provider Internal Medicine
DX: R11.2 Nausea with vomiting, unspecified (principal); N18.5 Chronic kidney disease, stage 5
CPT/HCPCS: 36415; 70450; 71045; 74176; 80053; 81001; 82150; 83605; 83690; 84484; 85025; 93005; 96361; 96374; 96375; 99284; A9270; J2405; J2765; J7030